=== PATIENT | male | born 1975 | race Caucasian/White ===

== ENCOUNTER 2017-05-23 11:06 | Inpatient (IN) | payer MEDICAID ==
[~2017-05-23] VITALS: Ht 172.7 cm; Wt 66.0 kg
[~2017-05-23 11:06] MED LIST: ALPR.5 PO; ECASA PO; HYDR-3129 PO; WARF2TAB PO
[2017-05-23 11:07] VITALS: BP 147/98; PULSE 92; RESP 22; TEMP 98.2; O2SAT 98
--- NOTE | 2017-05-23 11:38 | PD ---
HPI Chief Complaint: Medical Clearance Time Seen by Provider: 11:14 Travel History International Travel<30 days: No Contact w/Intl Traveler<30days: No Traveled to known affect area: No History of Present Illness HPI 41-year-old male patient presents emergency department with mother for evaluation of depressed, reclusive symptoms. The patient had open-heart surgery last August and subsequently was placed on Cymbalta by his primary care for depression. The mother states the patient had a hard time affording this medication. Patient stopped taking this medication a couple weeks ago and within the last 2 days has started talking to himself, not engaging socially and refusing to leave the house. The patient has no official psychiatric diagnosis but was [place] acted prior and has a prior history of drug and alcohol use. Patient developed endocarditis and has a synthetic mitral valve. Patient denies any fever, chills, malaise, chest pain, shortness breath, abdominal pain , nausea, vomiting, diarrhea. PFSH Past Medical History Arthritis: Yes (HAND) Atrial Fibrillation: Yes Blood Disorders: Yes (BLEEDING WHEN BRUSHING TEETH SCRATCH OF L TIBIAL AREA WITH BLEEDING DRSG ON) Anxiety: Yes Depression: Yes Heart Rhythm Problems: Yes (RAPID HEART RATE) Cancer: No Cardiovascular Problems: Yes (MITRAL VALVE REPLACEMENT) High Cholesterol: No Chemotherapy: No Chest Pain: Yes Congestive Heart Failure: No COPD: No Cerebrovascular Accident: No Diminished Hearing: No Endocrine: No Genitourinary: No Hypertension: Yes Immune Disorder: No Musculoskeletal: Yes Neurologic: Yes Psychiatric: Yes Reproductive: No Respiratory: No (SMOKER) Migraines: No Myocardial Infarction: Yes Radiation Therapy: No Seizures: No Sleep Apnea: No ?: Not Past Surgical History Abdominal Surgery: No AICD: No Arteriovenous Shunt: No Body Medical Devices: WAS TOLD HE HAS ANOTHER LEAKY VALVE Cardiac Surgery: Yes (ST JAM MITRAL VALVE) Ear Surgery: No Endocrine Surgery: No Eye Surgery: No Genitourinary Surgery: No Insulin Pump: No Joint Replacement: No Neurologic Surgery: No Oral Surgery: No Pacemaker: No Thoracic Surgery: No Valve Replacement: Yes (MITRAL VALVE SURGERY ) Other Surgery: Yes Social History Alcohol Use: No (QUIT) Tobacco Use: Yes Substance Use: Yes (MARIJUANA AT TIMES) Allergies-Medications (Allergen,Severity, Reaction): Coded Allergies: haloperidol (Unverified Allergy, Severe, DYSTONIC REACTION, 01/25/17) lorazepam (Unverified Allergy, Severe, SEVERE AGITATION, 01/25/17) promethazine (Unverified Allergy, Severe, SEVERE AGITATION, 01/25/17) zolpidem (Unverified Allergy, Severe, severe agitation, 01/25/17) Reported Meds & Prescriptions Reported Meds & Active Scripts Active Reported Cymbalta DR (Duloxetine HCl) 30 Mg Capdr 30 Mg PO DAILY Atenolol 50 Mg Tab 50 Mg PO BID Coumadin (Warfarin) 2.5 Mg Tab 2.5 Mg PO DAILY Review of Systems Except as stated in HPI: all other systems reviewed are Neg Psychiatric: Positive: Depression, Disorder of Thought Physical Exam Narrative GENERAL: Disheveled unkempt 41-year-old male patient in no acute respiratory distress but refusing to make eye contact or answer questions. SKIN: Focused skin assessment warm/dry. HEAD: Atraumatic. Normocephalic. EYES: Pupils equal and round. No scleral icterus. No injection or drainage. ENT: No nasal bleeding or discharge. Mucous membranes pink and moist. NECK: Trachea midline. No JVD. CARDIOVASCULAR: Regular rate and rhythm. No murmur appreciated. RESPIRATORY: No accessory muscle use. Clear to auscultation. Breath sounds equal bilaterally. GASTROINTESTINAL: Abdomen soft, non-tender, nondistended. Hepatic and splenic margins not palpable. MUSCULOSKELETAL: No obvious deformities. No clubbing. No cyanosis. No edema. NEUROLOGICAL: Awake and alert. No obvious cranial nerve deficits. Motor grossly within normal limits. PSYCHIATRIC: Flat affect, making no effort to make eye contact or answer questions, closed body language with arms crossed; talking and laughing to himself. Data Data Last Documented VS Vital Signs Date Time Temp Pulse Resp B/P (MAP) Pulse Ox O2 Delivery O2 Flow Rate FiO2 05/23/17 13:10 79 18 141/86 (104) 98 05/23/17 11:07 98.2 Orders Orders Complete Blood Count With Diff (05/23/17 11:20) Comprehensive Metabolic Panel (05/23/17 11:20) Urinalysis - C+S If Indicated (05/23/17 11:20) Psych Screen (05/23/17 11:20) Drug Screen, Random Urine (05/23/17 11:20) Potassium Chloride (Kcl) (05/23/17 12:45) Labs Laboratory Tests Test 05/23/17 11:30 05/23/17 14:45 White Blood Count 6.8 TH/MM3 Red Blood Count 3.41 MIL/MM3 Hemoglobin 11.8 GM/DL Hematocrit 34.7 % Mean Corpuscular Volume 101.7 FL Mean Corpuscular Hemoglobin 34.7 PG Mean Corpuscular Hemoglobin Concent 34.1 % Red Cell Distribution Width 15.8 % Platelet Count 173 TH/MM3 Mean Platelet Volume 7.9 FL Neutrophils (%) (Auto) 78.9 % Lymphocytes (%) (Auto) 16.5 % Monocytes (%) (Auto) 4.2 % Eosinophils (%) (Auto) 0.1 % Basophils (%) (Auto) 0.3 % Neutrophils # (Auto) 5.3 TH/MM3 Lymphocytes # (Auto) 1.1 TH/MM3 Monocytes # (Auto) 0.3 TH/MM3 Eosinophils # (Auto) 0.0 TH/MM3 Basophils # (Auto) 0.0 TH/MM3 CBC Comment DIFF FINAL Differential Comment Blood Urea Nitrogen 17 MG/DL Creatinine 0.73 MG/DL Random Glucose 103 MG/DL Total Protein 7.1 GM/DL Albumin 4.4 GM/DL Calcium Level 9.1 MG/DL Alkaline Phosphatase 75 U/L Aspartate Amino Transf (AST/SGOT) 34 U/L Alanine Aminotransferase (ALT/SGPT) 21 U/L Total Bilirubin 0.8 MG/DL Sodium Level 141 MEQ/L Potassium Level 2.9 MEQ/L Chloride Level 105 MEQ/L Carbon Dioxide Level 27.1 MEQ/L Anion Gap 9 MEQ/L Estimat Glomerular Filtration Rate 120 ML/MIN Urine Color YELLOW Urine Turbidity CLEAR Urine pH 6.0 Urine Specific [place] 1.014 Urine Protein 30 mg/dL Urine Glucose (UA) NEG mg/dL Urine Ketones NEG mg/dL Urine Occult Blood MOD Urine Nitrite NEG Urine Bilirubin NEG Urine Urobilinogen 4.0 MG/DL Urine Leukocyte Esterase NEG Urine RBC 23 /hpf Urine WBC 1 /hpf Urine Bacteria OCC /hpf Urine Mucus FEW /lpf Microscopic Urinalysis Comment CULT NOT INDICATED Urine Opiates Screen NEG Urine Barbiturates Screen NEG Urine Amphetamines Screen NEG Urine Benzodiazepines Screen NEG Urine Cocaine Screen NEG Urine Cannabinoids Screen POS MDM Medical Decision Making Medical Screen Exam Complete: Yes Emergency Medical Condition: Yes Differential Diagnosis Depression versus suicidal ideation versus anxiety versus adjustment disorder versus mood disorder versus bipolar disorder versus schizophrenia versus paranoid disorder versus psychosis versus substance abuse versus alcohol abuse versus alcohol induced psychosis versus homicidality addition versus cutting versus personality disorder Narrative Course 41-year-old patient presents to the emergency department voluntary for psychiatric evaluation. Basic blood work was ordered to medically clear the patient. Psych screen ordered and pending once the patient is medically clear. Heart shows hypokalemia at 2.9. KCl 60 mEq by mouth ordered. Drug screen is negative except for cannabis. Patient medically cleared at this time for psych screen. Psych to determine disposition of patient. Diagnosis Primary Impression: Adjustment disorder, unspecified Qualified Codes: F43.25 - Adjustment disorder with mixed disturbance of emotions and conduct Condition: Stable Risa Olvera [facility] May 23, 2017 11:38
[2017-05-23 11:53] LABS: AUTOMATED NEUTROPHIL # 5.3 TH/MM3 (1.8-7.7); BASOPHIL % 0.3 % (0.0-2.0); EOSINOPHIL % 0.1 % (0.0-4.0); HEMATOCRIT 34.7 % (39.0-51.0); HEMO FLAGS DIFF FINAL; LYMPH % 16.5 % (9.0-44.0); LYMPHOCYTE # 1.1 TH/MM3 (1.0-4.8); MEAN CELL VOLUME 101.7 FL (80.0-100.0); MEAN CORPUSCULAR HEMOGLOBIN 34.7 PG (27.0-34.0); MEAN CORPUSCULAR HGB CONC 34.1 % (32.0-36.0); MONO % 4.2 % (0.0-8.0); NEUT % 78.9 % (16.0-70.0); PLATELET COUNT 173 TH/MM3 (150-450); RED BLOOD COUNT 3.41 MIL/MM3 (4.50-5.90); RED CELL DISTRIBUTION WIDTH 15.8 % (11.6-17.2); WHITE BLOOD COUNT 6.8 TH/MM3 (4.0-11.0)
[2017-05-23 12:18] LABS: ALKALINE PHOSPHATASE 75 U/L (45-117); ALT (GPT) 21 U/L (12-78); ANION GAP 9 MEQ/L (5-15); AST (GOT) 34 U/L (15-37); BICARBONATE 27.1 MEQ/L (21.0-32.0); BLOOD UREA NITROGEN 17 MG/DL (7-18); CHLORIDE 105 MEQ/L (98-107); GLOMERULAR FILTRATION RATE 120 ML/MIN (>89); SODIUM (NA) 141 MEQ/L (136-145); TOTAL BILIRUBIN ADULT 0.8 MG/DL (0.2-1.0)
[2017-05-23 12:23] LABS: POTASSIUM 2.9 MEQ/L (3.5-5.1)
[2017-05-23] MEDS ORDERED: POTASSIUM CHLORIDE 20 MEQ CONTROLLED RELEASE TAB PO ONE (12:45)
[2017-05-23 13:10] VITALS: BP 141/86; PULSE 79; RESP 18; O2SAT 98
[2017-05-23] MEDS ORDERED: CYMB30CA PO (13:13)
[2017-05-23] MEDS ORDERED: ATEN50TA PO (13:13)
[2017-05-23] MEDS ORDERED: COUM2.5T PO (13:13)
[2017-05-23 15:53] LABS: BACTERIA, URINE OCC /hpf; BLOOD, URINE MOD (NEG); COMMENT (UR) CULT NOT INDICATED; CULTURE IF INDICATED CULT NOT INDICATED; GLUCOSE,URINE NEG (NEG); KETONE, URINE NEG (NEG); MUCUS URINE FEW /lpf (OCC); NITRITE,URINE NEG (NEG); URINE COLOR YELLOW (YELLW/STRAW)
[2017-05-23] MEDS ORDERED: ACETAMINOPHEN 325 MG TAB PO PRN (17:45)
[2017-05-23] MEDS ORDERED: LORazepam 1 MG TAB PO PRN (17:45)
[2017-05-23] MEDS ORDERED: MAGNESIUM HYDROXIDE SUSP 30 ML CUP PO PRN (17:45)
[2017-05-23] MEDS ORDERED: ALUMINUM/MAGNESIUM/SIMETH 30 ML CUP PO PRN (17:45)
[2017-05-23] MEDS ORDERED: LORazepam 2 MG/ML VIAL IM PRN (17:45)
--- NOTE | 2017-05-23 17:51 | HHI.HP ---
Provisional Diagnosis Admission Date [place]. Brief psychotic disorder GENERAL: SKIN: Warm and dry. HEAD: Normocephalic. EYES: No scleral icterus. No injection or drainage. NECK: Supple, trachea midline. No JVD or lymphadenopathy. CARDIOVASCULAR: Regular rate and rhythm without murmurs, gallops, or rubs. RESPIRATORY: Breath sounds equal bilaterally. No accessory muscle use. GASTROINTESTINAL: Abdomen soft, non-tender, nondistended. MUSCULOSKELETAL: No cyanosis, or edema. BACK: Nontender without obvious deformity. No CVA tenderness. Certification of Person's Competence To Provide Express and Informed Consent I have personally examined Sandro Mcintosh , a person being served at [facility] on, May 23, 2017 17:43. Express and informed consent means consent voluntarily given in writing, by a competent person, after sufficient explanation and disclosure of the subject matter involved to enable the person to make a knowing and willful decision without any element of force, fraud, deceit, duress, or other form of constraint or coercion. This person is 18 years of age or older, is not now known to be incompetent to consent to treatment with a guardian advocate, and does not have a health care surrogate or proxy currently making medical treatment decisions. I have found this person to be one of the following: [X] Competent to provide express and informed consent, as defined above, for voluntary admission to this facility and is competent to provide express and informed consent for treatment. He/she has the consistent capacity to make well reasoned, willful, and knowing decisions concerning his or her medical or mental health treatment. The person fully and consistently understands the purpose of the admission for examination/placement and is fully capable of personally exercising all rights assured [place] Incompetent to provide express and informed consent to voluntary admission, and this is incompetent to provide express and informed consent to treatment. The person must be transferred to involuntary status and a petition for a guardian advocate filed with the Circuit Court. [] Refusing to provide express and informed consent to voluntary admission but is competent to provide express and informed consent for treatment. The person must be discharged or transferred to involuntary status. Form shall be completed within 24 hours of a person's arrival at the receiving facility and filed in the clinical record of each person: 1. Admitted on a voluntary basis 2. Permitted to provide express and informed consent to his/her own treatment 3. Allowed to transfer from involuntary to voluntary status 4. Prior to permitting a person to consent to his or her own treatment after having been previously found incompetent to consent to treatment. History of Present Illness Capacity: Has Capacity HPI 41-year-old male with a several month history of increasing symptoms of depression, status post open heart surgery in August of this year, presenting at this point with marked depression and psychotic features. Patient has awareness that he is not well and voluntarily came to the hospital with his mother. He is and has 3 children. He is unable to work due to his cardiac condition. Over the last several months, he has become increasingly depressed. He was taking Cymbalta but apparently has been off this medicine in the last several weeks. At this point, the patient is claiming to be seeing bugs. He is talking to himself and having what appears to be nonsensical conversations with himself. He is obviously a poor historian. However, he is very cooperative and appears to understand there is something not wrong with his thought process. He is willing to be admitted for evaluation and treatment. His mother feels she and the patient's are unable to care for him at this point. The mother reports the patient smokes marijuana but is uncertain of any other drugs that may have been used with marijuana and does not believe her son has used any other illicit drugs. Patient has apparently gone out of the house only approximately 10 times this year and on each occasion , he has gone with a family member. Review of Systems Psychiatric: COMPLAINS OF: Confusion, Depression Except as stated in HPI: all other systems reviewed are Neg Past Psych History Psychological trauma history No known psychological trauma. Violence risk - others (6 mos) Minimal to moderate Violence risk - self (6 mos) Moderate to high Substance Abuse History Drugs/Alcohol past 12 months History of benzodiazepine abuse. Past Family Social History Coded Allergies: haloperidol (Unverified Allergy, Severe, DYSTONIC REACTION, 01/25/17) lorazepam (Unverified Allergy, Severe, SEVERE AGITATION, 01/25/17) promethazine (Unverified Allergy, Severe, SEVERE AGITATION, 01/25/17) zolpidem (Unverified Allergy, Severe, severe agitation, 01/25/17) Reported Medications Duloxetine (Cyvero ORDOÑEZ) 30 Mg Capdr, 30 MG PO DAILY, #30 CAP 0 Refills 05/23/17 Atenolol (Atenolol) 50 Mg Tab, 50 MG PO BID for Blood Pressure Management, #14 TAB 0 Refills 05/23/17 Warfarin (Coumadin) 2.5 Mg Tab, 2.5 MG PO DAILY for Prevent Blood Clot, #30 TAB 0 Refills 05/23/17 Current Medications Medications (Trade) Dose Ordered Sig/Khushboo Route Start Time Stop Time Status Last Admin (Ativan) 1 mg Q6H PRN PO 05/23/17 17:45 UNV (Ativan Inj) 1 mg Q6H PRN IM 05/23/17 17:45 UNV (Tylenol) 650 mg Q4H PRN PO 05/23/17 17:45 UNV (Milk Of Magnesia Liq) 30 ml DAILY PRN PO 05/23/17 17:45 UNV (Mag-Al Plus Susp Liq) 30 ml Q6H PRN PO 05/23/17 17:45 UNV Family Psych History Positive for depression. Social History Patient has had heart problems for years. 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 He is unemployed but his works. Family is supportive. Drug use as described above. Patient's Strengths (min. 2) Verbal and has access to healthcare. Physical Exam GENERAL: SKIN: Warm and dry. HEAD: Normocephalic. EYES: No scleral icterus. No injection or drainage. NECK: Supple, trachea midline. No JVD or lymphadenopathy. CARDIOVASCULAR: Regular rate and rhythm without murmurs, gallops, or rubs. RESPIRATORY: Breath sounds equal bilaterally. No accessory muscle use. GASTROINTESTINAL: Abdomen soft, non-tender, nondistended. MUSCULOSKELETAL: No cyanosis, or edema. BACK: Nontender without obvious deformity. No CVA tenderness. Vital Signs Vital Signs Date Time Temp Pulse Resp B/P (MAP) Pulse Ox O2 Delivery O2 Flow Rate FiO2 05/23/17 13:10 79 18 141/86 (104) 98 05/23/17 11:07 98.2 Lab Results Test 05/23/17 11:30 05/23/17 14:45 White Blood Count 6.8 TH/MM3 Red Blood Count 3.41 MIL/MM3 Hemoglobin 11.8 GM/DL Hematocrit 34.7 % Mean Corpuscular Volume 101.7 FL Mean Corpuscular Hemoglobin 34.7 PG Mean Corpuscular Hemoglobin Concent 34.1 % Red Cell Distribution Width 15.8 % Platelet Count 173 TH/MM3 Mean Platelet Volume 7.9 FL Neutrophils (%) (Auto) 78.9 % Lymphocytes (%) (Auto) 16.5 % Monocytes (%) (Auto) 4.2 % Eosinophils (%) (Auto) 0.1 % Basophils (%) (Auto) 0.3 % Neutrophils # (Auto) 5.3 TH/MM3 Lymphocytes # (Auto) 1.1 TH/MM3 Monocytes # (Auto) 0.3 TH/MM3 Eosinophils # (Auto) 0.0 TH/MM3 Basophils # (Auto) 0.0 TH/MM3 CBC Comment DIFF FINAL Differential Comment Blood Urea Nitrogen 17 MG/DL Creatinine 0.73 MG/DL Random Glucose 103 MG/DL Total Protein 7.1 GM/DL Albumin 4.4 GM/DL Calcium Level 9.1 MG/DL Alkaline Phosphatase 75 U/L Aspartate Amino Transf (AST/SGOT) 34 U/L Alanine Aminotransferase (ALT/SGPT) 21 U/L Total Bilirubin 0.8 MG/DL Sodium Level 141 MEQ/L Potassium Level 2.9 MEQ/L Chloride Level 105 MEQ/L Carbon Dioxide Level 27.1 MEQ/L Anion Gap 9 MEQ/L Estimat Glomerular Filtration Rate 120 ML/MIN Urine Color YELLOW Urine Turbidity CLEAR Urine pH 6.0 Urine Specific [place] 1.014 Urine Protein 30 mg/dL Urine Glucose (UA) NEG mg/dL Urine Ketones NEG mg/dL Urine Occult Blood MOD Urine Nitrite NEG Urine Bilirubin NEG Urine Urobilinogen 4.0 MG/DL Urine Leukocyte Esterase NEG Urine RBC 23 /hpf Urine WBC 1 /hpf Urine Bacteria OCC /hpf Urine Mucus FEW /lpf Microscopic Urinalysis Comment CULT NOT INDICATED Urine Opiates Screen NEG Urine Barbiturates Screen NEG Urine Amphetamines Screen NEG Urine Benzodiazepines Screen NEG Urine Cocaine Screen NEG Urine Cannabinoids Screen POS Mental Status Examination Appearance: Appropriate Consciousness: Alert Orientation: x4 Motor Activity: Normal gait Speech: Hesitant Language: Adequate Fund of Knowledge: Adequate Attention and Concentration: Easily Distracted Memory: Impaired Mood: Sad Affect: Sad Thought Process & Associations: Disorganized Thought Content: Bizarre thinking, Delusional Hallucination Type: Auditory, Visual Delusion Type: Other Suicidal Ideation: No Suicidal Plan: No Suicidal Intention: No Homicidal Ideation: No Homicidal Plan: No Homicidal Intention: No Insight: Fair Assessment & Plan Problem List: (1) Brief psychotic disorder ICD Codes: F23 - Brief psychotic disorder Assessment & Plan Estimated LOS: days. This physician is unable to determine whether the patient is psychotic as a result of some organic process, is currently experiencing major depression with psychotic illness, butting schizophrenia, etc. In any event, he has a serious heart condition, remains on anticoagulation therapy and is unable to care for himself. He remains experiencing auditory and visual hallucinations with delusional thinking of bugs being in his air space. For these reasons he is being admitted for further evaluation and treatment. This physician has ordered a CBC and comprehensive metabolic panel to determine if any infectious process or metabolic process may be causing or contributing to the patient's psychosis. A hospitalist consult was also obtained to evaluate the patient's cardiac condition and any other medical condition that may be causing or contributing to his psychosis. This physician ordered a thyroid-stimulating hormone level, vitamin B-12 level and vitamin D level, to determine if deficiencies in these areas is causing or contributing to his psychosis. Also ordered is a EKG to determine the patient's cardiac conduction status prior to utilizing psychotropic medicines which might adversely affect his heart. This physician spoke with the patient's nurse regarding his recent behavior. Case management will also be involved to assist with further information gathering and disposition planning. Yordan Castaneda MD May 23, 2017 17:51
[2017-05-23 18:30] VITALS: BP 131/85; PULSE 77; RESP 18; O2SAT 98
--- NOTE | 2017-05-23 19:26 | PD ---
Physical Exam Narrative I, Dr. Ferrari, have reviewed the advance practice practitioner's documentation and am in agreement, met with the patient face to face, made the diagnosis, and the medical decision making was done by me. *My assessment and Findings: Psychotic eisode vs. depression vs. schizophrenia vs. drug induced psychosis 41yo M with history of depression here because he has been talking to himself and has been off cymbalta because he could not afford it. Pt does seem bizarre. Denies any medical complaints. Labs reviewed, no leukocytosis. Hypokalemia at 2.9, replaced orally. Pt takes lasix and said that is normal for him. Utox positive cannabinoids. UA negative for leukocyte. +RBC. Psychiatry evaluated pt and impression is brief psychotic disorder. Asked me to [place] Act which I signed. Data Data Last Documented VS Vital Signs Date Time Temp Pulse Resp B/P (MAP) Pulse Ox O2 Delivery O2 Flow Rate FiO2 05/23/17 13:10 79 18 141/86 (104) 98 05/23/17 11:07 98.2 Orders Orders Complete Blood Count With Diff (05/23/17 11:20) Comprehensive Metabolic Panel (05/23/17 11:20) Urinalysis - C+S If Indicated (05/23/17 11:20) Psych Screen (05/23/17 11:20) Drug Screen, Random Urine (05/23/17 11:20) Potassium Chloride (Kcl) (05/23/17 12:45) Admit Order (Ed Use Only) (05/23/17 17:38) Labs Laboratory Tests Test 05/23/17 11:30 05/23/17 14:45 White Blood Count 6.8 TH/MM3 Red Blood Count 3.41 MIL/MM3 Hemoglobin 11.8 GM/DL Hematocrit 34.7 % Mean Corpuscular Volume 101.7 FL Mean Corpuscular Hemoglobin 34.7 PG Mean Corpuscular Hemoglobin Concent 34.1 % Red Cell Distribution Width 15.8 % Platelet Count 173 TH/MM3 Mean Platelet Volume 7.9 FL Neutrophils (%) (Auto) 78.9 % Lymphocytes (%) (Auto) 16.5 % Monocytes (%) (Auto) 4.2 % Eosinophils (%) (Auto) 0.1 % Basophils (%) (Auto) 0.3 % Neutrophils # (Auto) 5.3 TH/MM3 Lymphocytes # (Auto) 1.1 TH/MM3 Monocytes # (Auto) 0.3 TH/MM3 Eosinophils # (Auto) 0.0 TH/MM3 Basophils # (Auto) 0.0 TH/MM3 CBC Comment DIFF FINAL Differential Comment Blood Urea Nitrogen 17 MG/DL Creatinine 0.73 MG/DL Random Glucose 103 MG/DL Total Protein 7.1 GM/DL Albumin 4.4 GM/DL Calcium Level 9.1 MG/DL Alkaline Phosphatase 75 U/L Aspartate Amino Transf (AST/SGOT) 34 U/L Alanine Aminotransferase (ALT/SGPT) 21 U/L Total Bilirubin 0.8 MG/DL Sodium Level 141 MEQ/L Potassium Level 2.9 MEQ/L Chloride Level 105 MEQ/L Carbon Dioxide Level 27.1 MEQ/L Anion Gap 9 MEQ/L Estimat Glomerular Filtration Rate 120 ML/MIN Urine Color YELLOW Urine Turbidity CLEAR Urine pH 6.0 Urine Specific [place] 1.014 Urine Protein 30 mg/dL Urine Glucose (UA) NEG mg/dL Urine Ketones NEG mg/dL Urine Occult Blood MOD Urine Nitrite NEG Urine Bilirubin NEG Urine Urobilinogen 4.0 MG/DL Urine Leukocyte Esterase NEG Urine RBC 23 /hpf Urine WBC 1 /hpf Urine Bacteria OCC /hpf Urine Mucus FEW /lpf Microscopic Urinalysis Comment CULT NOT INDICATED Urine Opiates Screen NEG Urine Barbiturates Screen NEG Urine Amphetamines Screen NEG Urine Benzodiazepines Screen NEG Urine Cocaine Screen NEG Urine Cannabinoids Screen POS MDM Supervised Visit with ERICA: Yes Diagnosis Primary Impression: Adjustment disorder, unspecified Qualified Codes: F43.25 - Adjustment disorder with mixed disturbance of emotions and conduct Admitting Information Admitting Physician Requests: Admit Condition: Stable Yeni Ferrari DO May 23, 2017 19:26
[2017-05-23 20:00] VITALS: BP 134/82; PULSE 82; RESP 18; TEMP 98.1; O2SAT 98
[2017-05-23] MEDS: ATENOLOL 50 MG TAB PO SCH (21:27)
[2017-05-24] MEDS ORDERED: diphenhydrAMINE HCL 50 MG/ML VIAL IM PRN (02:00)
[2017-05-24] MEDS ORDERED: clonazePAM 1 MG TAB PO ONE ×2 (02:00→16:30)
[2017-05-24] MEDS ORDERED: ZIPRASIDONE MESYLATE 20 MG VIAL IM ONE ×2 (05:03→06:00)
[2017-05-24] MEDS ORDERED: OLANZapine IM 10 MG VIAL IM ONE (06:45)
--- NOTE | 2017-05-24 07:17 | HHI.PYPN ---
Subjective Remarks Patient seen for follow-up, chart reviewed. Discussion she staff reported the patient overnight had required ETO for agitation which she received Geodon 20 and then kill 50 the patient later this morning continued agitated was noted to be in the hallway swinging yelling and then to be redirected back to his room with staff. Patient was redirected back to his room was provided with olanzapine 10 mg IM for agitation patient was noted to be talking to self, unable to engage in conversation, pacing. When attempted to ask reasons he came to the hospital or questions of his previous history patient said that just nodded or shook his head and was unable to remain engaged in interview. As per chart patient initially presented to the ER with his mother for evaluation of depression and having recent days of talking to self and reclusive in the home. As per note patient has history of substance and alcohol use, has endocarditis status post mitral valve replacement. It was also noted by nursing staff that patient had admitted to marijuana and flakka use recently. Patient at this time is unable to participate in interview agitation. Past psychiatric history: Previous diagnosis of depression, unknown if previous psychiatric hospitalizations, unknown if previous suicide attempt or self- injurious behavior, as per chart recently on Cymbalta for depression but was not able to afford it and therefore has not taken it for a couple of weeks as per chart. Substance use history: Patient admitted to marijuana and flakka use. History of other substance use (unspecified) and alcohol use Past medical history: Hypertension, endocarditis status post valve replacement Allergies: Haldol, lorazepam, promethazine, zolpidem Social history: and has 3 children, unemployed Review of Systems ROS Limitations: Combative, Psychotic Mental Status Examination Appearance: Disheveled Consciousness: Alert Orientation: x4 Motor Activity: Normal gait Speech: Incoherent, Other (yelling at times) Language: Other Fund of Knowledge: Adequate, Inadequate Attention and Concentration: Inadequate Memory: Impaired Mood: Angry, Irritable Affect: Labile, Other (responding to internal stimuli) Thought Process & Associations: Disorganized Thought Content: Bizarre thinking, Delusional Hallucination Type: Auditory, Visual Delusion Type: Other Suicidal Ideation: No Suicidal Plan: No Suicidal Intention: No Homicidal Ideation: No Homicidal Plan: No Homicidal Intention: No Insight: Fair Results Labs Labs reviewed. Test 05/23/17 11:30 05/23/17 14:45 White Blood Count 6.8 TH/MM3 Red Blood Count 3.41 MIL/MM3 Hemoglobin 11.8 GM/DL Hematocrit 34.7 % Mean Corpuscular Volume 101.7 FL Mean Corpuscular Hemoglobin 34.7 PG Mean Corpuscular Hemoglobin Concent 34.1 % Red Cell Distribution Width 15.8 % Platelet Count 173 TH/MM3 Mean Platelet Volume 7.9 FL Neutrophils (%) (Auto) 78.9 % Lymphocytes (%) (Auto) 16.5 % Monocytes (%) (Auto) 4.2 % Eosinophils (%) (Auto) 0.1 % Basophils (%) (Auto) 0.3 % Neutrophils # (Auto) 5.3 TH/MM3 Lymphocytes # (Auto) 1.1 TH/MM3 Monocytes # (Auto) 0.3 TH/MM3 Eosinophils # (Auto) 0.0 TH/MM3 Basophils # (Auto) 0.0 TH/MM3 CBC Comment DIFF FINAL Differential Comment Blood Urea Nitrogen 17 MG/DL Creatinine 0.73 MG/DL Random Glucose 103 MG/DL Total Protein 7.1 GM/DL Albumin 4.4 GM/DL Calcium Level 9.1 MG/DL Alkaline Phosphatase 75 U/L Aspartate Amino Transf (AST/SGOT) 34 U/L Alanine Aminotransferase (ALT/SGPT) 21 U/L Total Bilirubin 0.8 MG/DL Sodium Level 141 MEQ/L Potassium Level 2.9 MEQ/L Chloride Level 105 MEQ/L Carbon Dioxide Level 27.1 MEQ/L Anion Gap 9 MEQ/L Estimat Glomerular Filtration Rate 120 ML/MIN Urine Color YELLOW Urine Turbidity CLEAR Urine pH 6.0 Urine Specific [place] 1.014 Urine Protein 30 mg/dL Urine Glucose (UA) NEG mg/dL Urine Ketones NEG mg/dL Urine Occult Blood MOD Urine Nitrite NEG Urine Bilirubin NEG Urine Urobilinogen 4.0 MG/DL Urine Leukocyte Esterase NEG Urine RBC 23 /hpf Urine WBC 1 /hpf Urine Bacteria OCC /hpf Urine Mucus FEW /lpf Microscopic Urinalysis Comment CULT NOT INDICATED Urine Opiates Screen NEG Urine Barbiturates Screen NEG Urine Amphetamines Screen NEG Urine Benzodiazepines Screen NEG Urine Cocaine Screen NEG Urine Cannabinoids Screen POS Vitals/IOs Vital Signs Date Time Temp Pulse Resp B/P (MAP) Pulse Ox O2 Delivery O2 Flow Rate FiO2 05/23/17 20:00 98.1 82 18 134/82 (99) 98 Intake and Output 05/24/17 05/24/17 05/25/17 08:00 16:00 00:00 Intake Total 0 ml Balance 0 ml Assessment & Plan Problem List: (1) Brief psychotic disorder ICD Codes: F23 - Brief psychotic disorder Assessment & Plan Patient is a 41-year-old man, who carries a diagnosis of depression, polysubstance use disorde who was brought in by mother for evaluation of depression and noted to talk to self for the past couple of days which she requires inpatient psychiatry stabilization. Patient required ETO last night due to agitation and again earlier this morning which she received olanzapine 10 mg IM. Patient unable to participate in interview effectively at this time due to agitation. We'll order one-to-one observation for now for safety. Start olanzapine 5 mg by mouth twice a day for psychosis, continue Cymbalta 30 mg by mouth for depression, start clonazepam 0.5 by mouth twice a day. Recommendations as per primary medical team. Patient was noted at a critical lab value of a low potassium but had potassium replacement last evening. Patient has labs pending this morning. We'll order EKG. Collateral information pending. Discharge planning in progress Justification for Cont. Inpt. At risk for further decompensation if at lower level of care Discharge Planning Patient return back to his residence once psychiatrically stable Tunde Ellis MD May 24, 2017 07:17
[2017-05-24] MEDS: DULoxetine HCl DR 30 MG CAP PO SCH (09:00)
[2017-05-24] MEDS ORDERED: OLANZapine 5 MG TAB PO SCH (09:00)
[2017-05-24] MEDS: ATENOLOL 50 MG TAB PO SCH ×2 (09:00→20:44)
--- NOTE | 2017-05-24 09:19 | PD.CONS ---
HPI Service [facility] Consult Requested By Primary Care Physician No Primary Care Physician Diagnoses: History of Present Illness History from review of medical records and nursing staff. Patient himself is quite disheveled, agitated. He is found sleeping in his bed in med psychiatry unit. He is admitted here with severe depression and psychosis. Nursing staff believes that patient may also be using drugs which led to this agitation and psychosis. At the time of my exam, patient basically answered yes to every single review of system. However when asked about whether he was on antibiotics recently, he denies it. He is noted to have significant hypokalemia on admission and was given 60 mg potassium chloride replacement. No repeat labs available yet. Per EMR, patient was hallucinating and seeing bugs. Talking to self. He has extensive cardiac history with history of mitral valve replacement, CHF, pacemaker and defibrillator placement. Review of Systems ROS Limitations: Psychotic, Poor Historian Past Family Social History Allergies: Coded Allergies: haloperidol (Unverified Allergy, Severe, DYSTONIC REACTION, 01/25/17) lorazepam (Unverified Allergy, Severe, SEVERE AGITATION, 01/25/17) promethazine (Unverified Allergy, Severe, SEVERE AGITATION, 01/25/17) zolpidem (Unverified Allergy, Severe, severe agitation, 01/25/17) Past Medical History -per EMR: HOCM Endocarditis 2000 Mitral Valve Replacement 2000 Defibrillator Placement 2013 Severe Anxiety and Depression- Current. History of suicide attempt Insomnia-Current Drainage of Paracardial Effusion 2000 Congestive Heart Failure 2014 Paper Sorter is Mildred (Stan 2008). Charisse placed the pacemaker. Past Surgical History per EMR: Mitral Valve Replacement 2001 Defibrillator Placement 2013 Drainage Paracardial Effusion 2000 Family History per EMR: Mother and Father Healthy 2 siblings 25 and 30 HOCM Social History smokes a pack a day said he drinks more than 4 beers a day would not answer questions regarding drug abuse Physical Exam Vital Signs Vital Signs Date Time Temp Pulse Resp B/P (MAP) Pulse Ox O2 Delivery O2 Flow Rate FiO2 05/23/17 20:00 98.1 82 18 134/82 (99) 98 05/23/17 19:43 05/23/17 18:30 77 18 131/85 (100) 98 05/23/17 13:10 79 18 141/86 (104) 98 05/23/17 11:07 98.2 92 22 147/98 (401) 10 Physical Exam GENERAL: This is a young gentleman, in no apparent distress. Looks disheveled SKIN: No rashes, ecchymoses or lesions. Cool and dry. HEAD: Atraumatic. Normocephalic. No temporal or scalp tenderness. EYES: No scleral icterus. No injection or drainage. ENT: Nose without bleeding, purulent drainage or septal hematoma. Airway patent. NECK: Trachea midline. No JVD. Supple, nontender, no meningeal signs. CARDIOVASCULAR: Regular rate and rhythm without murmurs, gallops, or rubs. RESPIRATORY: Clear to auscultation. Breath sounds equal bilaterally. No wheezes , rales, or rhonchi. GASTROINTESTINAL: Abdomen soft, non-tender, nondistended. No guarding. MUSCULOSKELETAL: Extremities without clubbing, cyanosis, or edema. . No calf tenderness. . NEUROLOGICAL: Awake and alert. Motor and sensory grossly within normal limits. Normal speech. Laboratory Laboratory Tests Test 05/23/17 11:30 05/23/17 14:45 White Blood Count 6.8 Red Blood Count 3.41 Hemoglobin 11.8 Hematocrit 34.7 Mean Corpuscular Volume 101.7 Mean Corpuscular Hemoglobin 34.7 Mean Corpuscular Hemoglobin Concent 34.1 Red Cell Distribution Width 15.8 Platelet Count 173 Mean Platelet Volume 7.9 Neutrophils (%) (Auto) 78.9 Lymphocytes (%) (Auto) 16.5 Monocytes (%) (Auto) 4.2 Eosinophils (%) (Auto) 0.1 Basophils (%) (Auto) 0.3 Neutrophils # (Auto) 5.3 Lymphocytes # (Auto) 1.1 Monocytes # (Auto) 0.3 Eosinophils # (Auto) 0.0 Basophils # (Auto) 0.0 CBC Comment DIFF FINAL Differential Comment Blood Urea Nitrogen 17 Creatinine 0.73 Random Glucose 103 Total Protein 7.1 Albumin 4.4 Calcium Level 9.1 Alkaline Phosphatase 75 Aspartate Amino Transf (AST/SGOT) 34 Alanine Aminotransferase (ALT/SGPT) 21 Total Bilirubin 0.8 Sodium Level 141 Potassium Level 2.9 Chloride Level 105 Carbon Dioxide Level 27.1 Anion Gap 9 Estimat Glomerular Filtration Rate 120 Urine Color YELLOW Urine Turbidity CLEAR Urine pH 6.0 Urine Specific [place] 1.014 Urine Protein 30 Urine Glucose (UA) NEG Urine Ketones NEG Urine Occult Blood MOD Urine Nitrite NEG Urine Bilirubin NEG Urine Urobilinogen 4.0 Urine Leukocyte Esterase NEG Urine RBC 23 Urine WBC 1 Urine Bacteria OCC Urine Mucus FEW Microscopic Urinalysis Comment CULT NOT INDICATED Urine Opiates Screen NEG Urine Barbiturates Screen NEG Urine Amphetamines Screen NEG Urine Benzodiazepines Screen NEG Urine Cocaine Screen NEG Urine Cannabinoids Screen POS Result Diagram: 05/23/17 1130 05/23/17 1130 Assessment and Plan Assessment and Plan Impression: Brief psychotic disorder/severe depression/drug induced. Management per psychiatrist Hypokalemia Chronic anticoagulation on Coumadin Extremely poor historian. Review of systems cannot be obtained as patient and answered yes to every single signs and symptoms. Comorbid conditions: HOCM Endocarditis 2000 Mitral Valve Replacement 2000 Defibrillator Placement 2013 Severe Anxiety and Depression- Current. History of suicide attempt Insomnia-Current Drainage of Paracardial Effusion 2000 Congestive Heart Failure 2013 Plan: Patient's meds have been resumed. check inr check k and mag will need to follow to get better hx if pt has diarrhea, call so that we can send stool samples, decide on further care Will follow up labs. Since patient is taking by mouth medications, it is okay to transfer him to psychiatry unit rather than med psych. Patient is actually wandering around in the med psych unit and is somewhat of a danger to staff. DVT prophylaxis on Coumadin. Discussed Condition With patient, nursing staff Benedict Guzman MD May 24, 2017 09:19
--- NOTE | 2017-05-24 09:56 | PD.PSY.CON ---
Provisional Diagnosis Admission Date May 23, 2017 at 17:40 [place]. Brief psychotic disorder History of Present Illness Service Psychiatry Consult Requested By Dr. Castaneda Reason for Consult Second opinion Primary Care Physician No Primary Care Physician HPI 41-year-old male with a several month history of increasing symptoms of depression, status post open heart surgery in August of this year, presenting at this point with marked depression and psychotic features. Patient has awareness that he is not well and voluntarily came to the hospital with his mother. He is and has 3 children. He is unable to work due to his cardiac condition. Over the last several months, he has become increasingly depressed. He was taking Cymbalta but apparently has been off this medicine in the last several weeks. At this point, the patient is claiming to be seeing bugs. He is talking to himself and having what appears to be nonsensical conversations with himself. He is obviously a poor historian. However, he is very cooperative and appears to understand there is something not wrong with his thought process. He is willing to be admitted for evaluation and treatment. His mother feels she and the patient's are unable to care for him at this point. The mother reports the patient smokes marijuana but is uncertain of any other drugs that may have been used with marijuana and does not believe her son has used any other illicit drugs. Patient has apparently gone out of the house only approximately 10 times this year and on each occasion , he has gone with a family member. The patient 41 year-old with psychiatric history of depression with psychosis, previous heart surgeries, the patient is , has 3 children's, unemployed, admitted due to brief psychosis. Consulted for second opinion. Chart review, case discussed Dr. Ellis and the nurse in charge Marilynn. On my evaluation the patient is found laying in his bed, staring to the roof, very disorganized, internally preoccupied, with a non sensical speech, multiple illogical statements. She doesn't know the reason his in the hospital. He does mention that he was using marijuana and K2. As per staff member the patient has been agitated, verbally hostile, even aggressive this morning needing ETOs. Review of Systems Psychiatric: COMPLAINS OF: Agitation, Delusions Except as stated in HPI: all other systems reviewed are Neg Past Family Social History Coded Allergies: haloperidol (Unverified Allergy, Severe, DYSTONIC REACTION, 01/25/17) lorazepam (Unverified Allergy, Severe, SEVERE AGITATION, 01/25/17) promethazine (Unverified Allergy, Severe, SEVERE AGITATION, 01/25/17) zolpidem (Unverified Allergy, Severe, severe agitation, 01/25/17) Reported Medications Duloxetine DR (Cymbalta DR) 30 Mg Capdr, 30 MG PO DAILY, #30 CAP 0 Refills 05/23/17 Atenolol (Atenolol) 50 Mg Tab, 50 MG PO BID for Blood Pressure Management, #14 TAB 0 Refills 05/23/17 Warfarin (Coumadin) 2.5 Mg Tab, 2.5 MG PO DAILY for Prevent Blood Clot, #30 TAB 0 Refills 05/23/17 Current Medications Medications (Trade) Dose Ordered Sig/[place] Route Start Time Stop Time Status Last Admin (Tylenol) 650 mg Q4H PRN PO 05/23/17 17:45 (Milk Of Magnesia Liq) 30 ml DAILY PRN PO 05/23/17 17:45 (Mag-Al Plus Susp Liq) 30 ml Q6H PRN PO 05/23/17 17:45 (Tenormin) 50 mg BID PO 05/23/17 21:00 05/23/17 21:27 (Cymbalta Dr) 30 mg DAILY PO 05/24/17 09:00 (Coumadin) 2.5 mg DAILY PO 05/23/17 17:45 UNV (Abilify) 5 mg BID PO 05/24/17 22:00 (Vitamin B1) 100 mg DAILY PO 05/25/17 09:00 UNV Patient's Strengths (min. 2) Verbal and has access to healthcare. Physical Exam Vital Signs Vital Signs Date Time Temp Pulse Resp B/P (MAP) Pulse Ox O2 Delivery O2 Flow Rate FiO2 05/23/17 20:00 98.1 82 18 134/82 (99) 98 I/O 05/24/17 05/24/17 05/25/17 08:00 16:00 00:00 Intake Total 0 ml Balance 0 ml Lab Results Test 05/23/17 11:30 05/23/17 14:45 White Blood Count 6.8 TH/MM3 Red Blood Count 3.41 MIL/MM3 Hemoglobin 11.8 GM/DL Hematocrit 34.7 % Mean Corpuscular Volume 101.7 FL Mean Corpuscular Hemoglobin 34.7 PG Mean Corpuscular Hemoglobin Concent 34.1 % Red Cell Distribution Width 15.8 % Platelet Count 173 TH/MM3 Mean Platelet Volume 7.9 FL Neutrophils (%) (Auto) 78.9 % Lymphocytes (%) (Auto) 16.5 % Monocytes (%) (Auto) 4.2 % Eosinophils (%) (Auto) 0.1 % Basophils (%) (Auto) 0.3 % Neutrophils # (Auto) 5.3 TH/MM3 Lymphocytes # (Auto) 1.1 TH/MM3 Monocytes # (Auto) 0.3 TH/MM3 Eosinophils # (Auto) 0.0 TH/MM3 Basophils # (Auto) 0.0 TH/MM3 CBC Comment DIFF FINAL Differential Comment Blood Urea Nitrogen 17 MG/DL Creatinine 0.73 MG/DL Random Glucose 103 MG/DL Total Protein 7.1 GM/DL Albumin 4.4 GM/DL Calcium Level 9.1 MG/DL Alkaline Phosphatase 75 U/L Aspartate Amino Transf (AST/SGOT) 34 U/L Alanine Aminotransferase (ALT/SGPT) 21 U/L Total Bilirubin 0.8 MG/DL Sodium Level 141 MEQ/L Potassium Level 2.9 MEQ/L Chloride Level 105 MEQ/L Carbon Dioxide Level 27.1 MEQ/L Anion Gap 9 MEQ/L Estimat Glomerular Filtration Rate 120 ML/MIN Urine Color YELLOW Urine Turbidity CLEAR Urine pH 6.0 Urine Specific [place] 1.014 Urine Protein 30 mg/dL Urine Glucose (UA) NEG mg/dL Urine Ketones NEG mg/dL Urine Occult Blood MOD Urine Nitrite NEG Urine Bilirubin NEG Urine Urobilinogen 4.0 MG/DL Urine Leukocyte Esterase NEG Urine RBC 23 /hpf Urine WBC 1 /hpf Urine Bacteria OCC /hpf Urine Mucus FEW /lpf Microscopic Urinalysis Comment CULT NOT INDICATED Urine Opiates Screen NEG Urine Barbiturates Screen NEG Urine Amphetamines Screen NEG Urine Benzodiazepines Screen NEG Urine Cocaine Screen NEG Urine Cannabinoids Screen POS Mental Status Examination Appearance: Disheveled Consciousness: Alert Orientation: x4 Motor Activity: Normal gait Speech: Incoherent, Other (yelling at times) Language: Other Fund of Knowledge: Adequate, Inadequate Attention and Concentration: Inadequate Memory: Impaired Mood: Angry, Irritable Affect: Labile, Other (responding to internal stimuli) Thought Process & Associations: Disorganized Thought Content: Bizarre thinking, Delusional Hallucination Type: Auditory, Visual Delusion Type: Other Suicidal Ideation: No Suicidal Plan: No Suicidal Intention: No Homicidal Ideation: No Homicidal Plan: No Homicidal Intention: No Insight: Fair Assessment & Plan Problem List: (1) Brief psychotic disorder ICD Codes: F23 - Brief psychotic disorder Assessment & Plan: I have seen and examined this patient, reviewed the documentation, discussed the case with Dr. Ellis and nurse in charge, Lula corcoarn with Dr. Castaneda's assessment and plan. Consult appreciated. Assessment & Plan Estimated LOS: Alexander Holcomb MD May 24, 2017 09:56
[2017-05-24 10:13] LABS: AUTOMATED NEUTROPHIL # 6.8 TH/MM3 (1.8-7.7); BASOPHIL % 0.5 % (0.0-2.0); EOSINOPHIL % 0.1 % (0.0-4.0); HEMATOCRIT 38.5 % (39.0-51.0); HEMO FLAGS DIFF FINAL; LYMPH % 19.2 % (9.0-44.0); LYMPHOCYTE # 1.8 TH/MM3 (1.0-4.8); MEAN CELL VOLUME 102.8 FL (80.0-100.0); MEAN CORPUSCULAR HEMOGLOBIN 34.9 PG (27.0-34.0); MEAN CORPUSCULAR HGB CONC 33.9 % (32.0-36.0); MONO % 6.2 % (0.0-8.0); PLATELET COUNT 171 TH/MM3 (150-450); RED BLOOD COUNT 3.74 MIL/MM3 (4.50-5.90); RED CELL DISTRIBUTION WIDTH 15.6 % (11.6-17.2); WHITE BLOOD COUNT 9.2 TH/MM3 (4.0-11.0)
[2017-05-24 10:20] LABS: INTERNATIONAL NORMALIZED RATIO 1.8 RATIO; PROTHROMBIN TIME - PATIENT 18.1 SEC (9.8-11.6)
[2017-05-24 10:42] LABS: ANION GAP 10 MEQ/L (5-15); AST (GOT) 35 U/L (15-37); BICARBONATE 26.2 MEQ/L (21.0-32.0); BLOOD UREA NITROGEN 19 MG/DL (7-18); CHLORIDE 104 MEQ/L (98-107); GLOMERULAR FILTRATION RATE 118 ML/MIN (>89); MAGNESIUM 2.1 MG/DL (1.5-2.5); SODIUM (NA) 140 MEQ/L (136-145)
[2017-05-24 10:44] LABS: ALT (GPT) 24 U/L (12-78)
[2017-05-24 11:09] LABS: ALKALINE PHOSPHATASE 80 U/L (45-117); LDL CHOLESTEROL 124 MG/DL (0-99); TOTAL BILIRUBIN ADULT 1.3 MG/DL (0.2-1.0)
[2017-05-24 12:29] LABS: HEMOGLOBIN A1a 0.7 %; HEMOGLOBIN A1b 0.6 %; HEMOGLOBIN Ao 86.7 %; HEMOGLOBIN F 0.7 %; HEMOGLOBIN LA1C 2.1 %; HEMOGLOBIN P3 3.7 %
[2017-05-24] MEDS ORDERED: POTASSIUM CHLORIDE 20 MEQ CONTROLLED RELEASE TAB PO ONE (13:45)
[2017-05-24] MEDS ORDERED: OLANZapine IM 10 MG VIAL IM STA (15:09)
[2017-05-24] MEDS: WARFARIN SOD 2.5 MG TAB PO SCH (16:00)
[2017-05-24 17:28] VITALS: BP 108/71; PULSE 76; RESP 18; TEMP 98.3
--- NOTE | 2017-05-24 19:20 | EKG ---
Date Performed: 05/24/2017 Time Performed: 07:43:50 PTAGE: 41 years EKG: Sinus rhythm LEFT ATRIAL ENLARGEMENT Left bundle branch block. QRS duration has increased when compared to previo us tracing. ABNORMAL ECG PREVIOUS TRACING : 04/09/2014 04.05 DOCTOR: Stas Ogden Interpretating Date/Time 05/24/2017 19:19:42
[2017-05-24] MEDS: clonazePAM 1 MG TAB PO SCH (20:44)
[2017-05-24] MEDS: ARIPiprazole 5 MG TAB PO SCH (21:12)
[2017-05-25 05:47] VITALS: BP 118/69; PULSE 75; RESP 16; TEMP 97.2; O2SAT 98
[2017-05-25] MEDS: clonazePAM 1 MG TAB PO SCH ×2 (08:44→20:35)
[2017-05-25] MEDS: ARIPiprazole 5 MG TAB PO SCH ×2 (08:44→20:34)
[2017-05-25] MEDS: ATENOLOL 50 MG TAB PO SCH ×2 (08:44→20:35)
[2017-05-25] MEDS: THIAMINE HCL 100 MG TAB PO SCH (08:44)
[2017-05-25] MEDS: DULoxetine HCl DR 30 MG CAP PO SCH (08:44)
[2017-05-25] MEDS ORDERED: ERGOCALCIFEROL (VIT D2) 50,000 UNIT CAP PO ONE (11:45)
--- NOTE | 2017-05-25 15:58 | EKG ---
Date Performed: 05/24/2017 Time Performed: 13:46:57 PTAGE: 41 years EKG: Sinus rhythm POSSIBLE RIGHT ATRIAL ENLARGEMENT LEFT ATRIAL ENLARGEMENT LEFT BUNDLE BRANCH BLOCK ABNORMAL ECG INTE RPRETATION BASED ON A DEFAULT AGE OF 42 YEARS PREVIOUS TRACING : 05/24/2017 07.43 DOCTOR: Hola Ruff Interpretating Date/Time 05/25/2017 15:56:11
[2017-05-25] MEDS: WARFARIN SOD 2.5 MG TAB PO SCH (16:00)
--- NOTE | 2017-05-25 16:56 | HHI.PYPN ---
Subjective Remarks Patient seen for follow-up, chart review. Discussion she staff reported the patient was stating feeling better, have slept better and reported to nursing that he would not been sleeping and days prior due to recent stressors. He was also passed on to report that patient had urinated in the hallway last evening had rolled in it. Patient was found in the hallway on the phone but was able to interact with interview of underwriter mortgage loan and nurse today. Patient stated they've been feeling "good" states that he slept well last evening mentioning that he appears he had "6-7 hours straight with no sleep". Patient states that his mood is "happy" and states that during his initial presentation he was "very confused". Patient states that he recently had been using marijuana only and denied having used K2 despite him having expresses initially. Patient also denies having used [place] recently although he also endorsed this initially. He states that he had tried other drugs in the past and states that mostly he was "pain pills when I can get them". Patient states he has outpatient follow- up with his tile edger Dr. Newell, Dr. Mason his primary care doctor in [place] which she last saw 6 weeks ago. Patient reports that he had seen a psychiatrist but 5 years ago and had 1 prior psychiatric authorization here to [place] about 10 years ago but denies any suicide attempt or self-injurious behavior. Patient states that he is able to think clearer now and plans on having family visit with him today. Review of Systems Except as stated in HPI: all other systems reviewed are Neg Mental Status Examination Appearance: Disheveled Consciousness: Alert Orientation: x4 Motor Activity: Normal gait Speech: Incoherent, Other (yelling at times) Language: Other Fund of Knowledge: Adequate, Inadequate Attention and Concentration: Inadequate Memory: Impaired Mood: Appropriate Affect: Other (restricted) Thought Process & Associations: Linear Thought Content: Appropriate Hallucination Type: Auditory (denies at this time), Visual (denies at this time ) Delusion Type: Other Suicidal Ideation: No Suicidal Plan: No Suicidal Intention: No Homicidal Ideation: No Homicidal Plan: No Homicidal Intention: No Insight: Fair Judgment: Impulsive Results Vitals/IOs Vital Signs Date Time Temp Pulse Resp B/P (MAP) Pulse Ox O2 Delivery O2 Flow Rate FiO2 05/25/17 05:47 97.2 75 16 118/69 (47) 47 Assessment & Plan Problem List: (1) Brief psychotic disorder ICD Codes: F23 - Brief psychotic disorder Assessment & Plan Patient appears to have improvement in orientation as well as less disorganized with interview today. Patient is able to maintain conversation with underwriter mortgage loan. Patient denies any recent substance use aside from marijuana although patient had endorsed initially having used K2 and flakka. Due to the patient's recent denial of recent substance use although unreliable, will order see head CT to rule out organic cause of his recent psychosis. Continue current treatment for now as patient appears to be improving. Collateral pending from family. Discharge planning in progress Justification for Cont. Inpt. At risk for further decompensation if at lower level of care Discharge Planning Patient to be discharged back to family once psychiatrically stable. Tunde Ellis MD May 25, 2017 16:56
[2017-05-25 17:07] VITALS: BP 116/64; PULSE 71; RESP 18; TEMP 97.9; O2SAT 98
--- NOTE | 2017-05-25 18:26 | HHI.PR ---
Subjective Remarks Follow up on patient with mitral valve replacement, hypokalemia. Patient seen and examined. Patient denies any chest pain or dyspnea. Patient is complaining of left shoulder pain and difficulty with range of motion. He denies any injury. He denies any fever or chills. Denies any nausea, vomiting or abdominal pain. Objective Vitals Vital Signs Date Time Temp Pulse Resp B/P (MAP) Pulse Ox O2 Delivery O2 Flow Rate FiO2 05/25/17 17:07 97.9 71 18 116/64 (81) 98 05/25/17 05:47 97.2 75 16 118/69 (85) 98 I/O 05/24/17 05/24/17 05/24/17 05/25/17 05/25/17 05/25/17 07:00 15:00 23:00 07:00 15:00 23:00 Intake Total 0 ml Balance 0 ml Intake Oral 0 ml # Voids 0 Result Diagram: 05/24/17 0905/24/17 0911 Objective Remarks GENERAL: This is a young gentleman, in no apparent distress. Looks disheveled. Awake and alert. Slightly manic. SKIN: Warm and dry. Well healed midline surgical scar over sternum. HEAD: Atraumatic. Normocephalic. EYES: EOMI. No scleral icterus. No injection or drainage. ENT: Nose without bleeding, purulent drainage. Airway patent. MMM. NECK: Trachea midline. CARDIOVASCULAR: Regular rate and rhythm. (+)murmur present. RESPIRATORY: Clear to auscultation. Breath sounds equal bilaterally. No wheezes , rales, or rhonchi. GASTROINTESTINAL: Abdomen soft, non-tender, nondistended. No guarding. MUSCULOSKELETAL: Extremities without clubbing, cyanosis, or edema. . No calf tenderness. Tenderness to palpation over left shoulder with decreased range of motion. NEUROLOGICAL: Awake and alert. Motor and sensory grossly within normal limits. Normal speech. Medications and IVs Current Medications Medications (Trade) Dose Ordered Sig/Khushboo Route Start Time Stop Time Status Last Admin (Tylenol) 650 mg Q4H PRN PO 05/23/17 17:45 (Milk Of Magnesia Liq) 30 ml DAILY PRN PO 05/23/17 17:45 (Mag-Al Plus Susp Liq) 30 ml Q6H PRN PO 05/23/17 17:45 (Tenormin) 50 mg BID PO 05/23/17 21:00 05/25/17 08:44 (Cymbalta Dr) 30 mg DAILY PO 05/24/17 09:00 05/25/17 08:44 (Coumadin) 2.5 mg DAILY@1600 PO 05/24/17 16:00 05/25/17 16:00 (Abilify) 5 mg BID PO 05/24/17 22:00 05/25/17 08:44 (Vitamin B1) 100 mg DAILY PO 05/25/17 09:00 05/25/17 08:44 (KlonoPIN) 1 mg BID PO 05/24/17 21:00 05/25/17 08:44 (Vitamin D3) 2,000 units DAILY PO 05/26/17 09:00 Pharmacy Profile Note 0 ml @ 0 mls/hr UNSCH OTHER 05/25/17 08:30 A/P Assessment and Plan Psychosis - Management per psychiatric team Mitral Valve Replacement 2000 Defibrillator Placement 2013 Chronic anticoagulation with Coumadin - Continue on Coumadin. INR subtherapeutic. Repeat INR today. Consult pharmacy to dose. - continue on Atenolol 50mg BID Hypokalemia - repletion given - repeat K level, labs ordered for today - check mag level Left shoulder pain - xray left shoulder - OT eval/tx Vitamin D deficiency - vitamin D level 8.8 - patient started on po vitamin D repletion - will need to follow up with PCP to have level rechecked DVT prophylaxis - Patient is ambulatory Meredith Mckee May 25, 2017 18:26
--- NOTE | 2017-05-25 19:51 | RADRPT ---
EXAM DATE/TIME: 05/25/2017 19:39 [facility] COMPARISON: No previous studies available for comparison. INDICATIONS : Altered mental status. RADIATION DOSE: 38.96 CTDIvol (mGy) MEDICAL HISTORY : Cardiovascular disease. Hypertension. SURGICAL HISTORY : None. ENCOUNTER: Initial ACUITY: 1 day PAIN SCALE: 0/10 LOCATION: cranial TECHNIQUE: Multiple contiguous axial images were obtained of the head. Using automated exposure control and adj ustment of the mA and/or kV according to patient size, radiation dose was kept as low as reasonably a chievable to obtain optimal diagnostic quality images. DICOM format image data is available electro nically for review and comparison. FINDINGS: CEREBRUM: The ventricles are normal for age. No evidence of midline shift, mass lesion, hemorrhage or acute in farction. No extra-axial fluid collections are seen. POSTERIOR FOSSA: The cerebellum and brainstem are intact. The 4th ventricle is midline. The cerebellopontine angle i s unremarkable. EXTRACRANIAL: The visualized portion of the orbits is intact. SKULL: The calvaria is intact. No evidence of skull fracture. CONCLUSION: 1. No acute intracranial abnormalities. Joel Garcia MD on May 25, 2017 at 19:47 Board Certified Radiologist. This report was verified electronically.
[2017-05-25] MEDS: REMOVE OLD NICODERM (NICOTINE) PATCH T-DERMAL SCH (20:00)
[2017-05-25] MEDS: NICOTINE 21 MG/24 HR PATCH T-DERMAL SCH (20:00)
--- NOTE | 2017-05-25 20:04 | RADRPT ---
EXAM DATE/TIME: 05/25/2017 19:42 [facility] COMPARISON: No previous studies available for comparison. INDICATIONS : Left shoulder pain. No known injury. MEDICAL HISTORY : Hypertension. Cardiovascular disease. Myocardial infarction. Atrial fibrillation. SURGICAL HISTORY : Pacemaker. Mitral valve replacement. ENCOUNTER: Initial ACUITY: >1 year PAIN SCORE: 5/10 LOCATION: Left anterior shoulder. FINDINGS: Two view examination of the left shoulder demonstrates no evidence of fracture or dislocation. The g lenohumeral and acromioclavicular joints are maintained. Bony mineralization is normal. CONCLUSION: 1. No acute findings. Joel Garcia MD on May 25, 2017 at 19:59 Board Certified Radiologist. This report was verified electronically.
[2017-05-26 05:59] VITALS: BP 123/72; PULSE 70; RESP 16; TEMP 97.3; O2SAT 98
[2017-05-26 08:08] LABS: AUTOMATED NEUTROPHIL # 4.3 TH/MM3 (1.8-7.7); BASOPHIL # 0.1 TH/MM3 (0-0.2); BASOPHIL % 0.8 % (0.0-2.0); EOSINOPHIL # 0.2 TH/MM3 (0-0.4); EOSINOPHIL % 2.4 % (0.0-4.0); HEMATOCRIT 37.5 % (39.0-51.0); HEMO FLAGS DIFF FINAL; LYMPHOCYTE # 2.3 TH/MM3 (1.0-4.8); MEAN CELL VOLUME 102.5 FL (80.0-100.0); MEAN CORPUSCULAR HEMOGLOBIN 34.6 PG (27.0-34.0); MEAN CORPUSCULAR HGB CONC 33.8 % (32.0-36.0); MONO % 6.6 % (0.0-8.0); NEUT % 58.2 % (16.0-70.0); PLATELET COUNT 169 TH/MM3 (150-450); RED BLOOD COUNT 3.66 MIL/MM3 (4.50-5.90); RED CELL DISTRIBUTION WIDTH 15.2 % (11.6-17.2); WHITE BLOOD COUNT 7.3 TH/MM3 (4.0-11.0)
[2017-05-26 08:12] LABS: INTERNATIONAL NORMALIZED RATIO 1.7 RATIO; PROTHROMBIN TIME - PATIENT 17.3 SEC (9.8-11.6)
[2017-05-26 08:36] LABS: BICARBONATE 24.9 MEQ/L (21.0-32.0); POTASSIUM 3.2 MEQ/L (3.5-5.1)
[2017-05-26] MEDS: clonazePAM 1 MG TAB PO SCH ×2 (09:00→21:14)
[2017-05-26] MEDS: ARIPiprazole 5 MG TAB PO SCH ×2 (09:00→21:14)
[2017-05-26] MEDS: CHOLECALCIFEROL (VIT D3) 1000 UNIT TAB PO SCH (09:00)
[2017-05-26] MEDS: ATENOLOL 50 MG TAB PO SCH ×2 (09:00→21:14)
[2017-05-26] MEDS: NICOTINE 21 MG/24 HR PATCH T-DERMAL SCH (09:00)
[2017-05-26] MEDS: DULoxetine HCl DR 30 MG CAP PO SCH (09:00)
[2017-05-26] MEDS: THIAMINE HCL 100 MG TAB PO SCH (09:00)
[2017-05-26] MEDS: REMOVE OLD NICODERM (NICOTINE) PATCH T-DERMAL SCH (09:00)
[2017-05-26] MEDS ORDERED: POTASSIUM CHLORIDE 10 MEQ CONTROLLED RELEASE TAB PO ONE (11:45)
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
[2017-05-26 11:54] LABS: RETIC % 1.1 % (0.4-3.0); REVIEW FLAG FINAL
[2017-05-26] MEDS ORDERED: WARFARIN SOD 2.5 MG TAB PO ONE (13:00)
[2017-05-26] MEDS: ENOXAPARIN SODIUM 60 MG/0.6 ML SYRINGE SQ SCH (13:00)
--- NOTE | 2017-05-26 14:07 | EKG ---
Date Performed: 05/26/2017 Time Performed: 11:10:19 PTAGE: 41 years EKG: Sinus rhythm RIGHT ATRIAL ENLARGEMENT BORDERLINE RIGHT AXIS DEVIATION INTRAVENTRICULAR CONDUCTION DELAY ABNORMAL ECG Compared to prior tracing no significant change PREVIOUS TRACING : 05/24/2017 13.46 DOCTOR: Grace Engle Interpretating Date/Time 05/26/2017 14:05:07
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
[2017-05-26] MEDS: WARFARIN SOD 2.5 MG TAB PO SCH (15:54)
[2017-05-26 20:28] VITALS: BP 107/55; PULSE 63; RESP 17; TEMP 97.2; O2SAT 99
[2017-05-27] MEDS ORDERED: diphenhydrAMINE HCL 50 MG CAP PO PRN (01:15)
[2017-05-27 04:00] VITALS: BP 112/68; PULSE 73; RESP 18; TEMP 97.7; O2SAT 99
[2017-05-27 07:15] LABS: INTERNATIONAL NORMALIZED RATIO 1.6 RATIO
[2017-05-27 08:05] LABS: BICARBONATE 26.9 MEQ/L (21.0-32.0); POTASSIUM 3.9 MEQ/L (3.5-5.1)
[2017-05-27] MEDS ORDERED: WARFARIN SOD 5 MG TAB PO ONE (08:30)
[2017-05-27] MEDS: REMOVE OLD NICODERM (NICOTINE) PATCH T-DERMAL SCH (09:00)
[2017-05-27] MEDS: ATENOLOL 50 MG TAB PO SCH (09:19)
[2017-05-27] MEDS: ARIPiprazole 5 MG TAB PO SCH (09:19)
[2017-05-27] MEDS: CHOLECALCIFEROL (VIT D3) 1000 UNIT TAB PO SCH (09:19)
[2017-05-27] MEDS: DULoxetine HCl DR 30 MG CAP PO SCH (09:19)
[2017-05-27] MEDS: clonazePAM 1 MG TAB PO SCH (09:20)
[2017-05-27] MEDS: THIAMINE HCL 100 MG TAB PO SCH (09:20)
[2017-05-27] MEDS: NICOTINE 21 MG/24 HR PATCH T-DERMAL SCH (09:26)
--- NOTE | 2017-05-27 09:52 | HHI.PR ---
Subjective Remarks Follow up on patient with CHF, mitral valve replacement, hypokalemia. Patient seen and examined. Patient complaining of increased anxiety. Requesting an increase in his Klonopin. Will defer to primary team. Still with some left shoulder pain but "not too bad". Denies any palpitations, dizziness, lightheadedness, chest pain or shortness of breath. Objective Vitals Vital Signs Date Time Temp Pulse Resp B/P (MAP) Pulse Ox O2 Delivery O2 Flow Rate FiO2 05/27/17 04:00 97.7 73 18 112/68 (83) 99 05/26/17 20:28 97.2 63 17 107/55 (72) 99 05/26/17 16:49 Result Diagram: 05/26/17 0652 05/27/17 0650 Imaging Last Impressions Shoulder X-Ray 05/25/17 0000 Signed Impressions: Service Date/Time: Thursday, May 25, 2017 19:42 - CONCLUSION: 1. No acute findings. Joel Garcia MD Head CT 05/25/17 0000 Signed Impressions: Service Date/Time: Thursday, May 25, 2017 19:39 - CONCLUSION: 1. No acute intracranial abnormalities. Joel Garcia MD Objective Remarks GENERAL: This well developed, well nourished young gentleman, in no apparent distress. Awake and alert. Sitting on side of hospital bed. SKIN: Warm and dry. Well healed midline surgical scar over sternum. HEAD: Atraumatic. Normocephalic. EYES: EOMI. No scleral icterus. No injection or drainage. ENT: Nose without bleeding, purulent drainage. Airway patent. MMM. NECK: Trachea midline. CARDIOVASCULAR: Regular rate and rhythm. (+)murmur present. RESPIRATORY: Clear to auscultation. Breath sounds equal bilaterally. No wheezes , rales, or rhonchi. GASTROINTESTINAL: Abdomen soft, non-tender, nondistended. No guarding. MUSCULOSKELETAL: Extremities without clubbing, cyanosis, or edema. . No calf tenderness. Tenderness to palpation over left shoulder with decreased range of motion. NEUROLOGICAL: Awake and alert. Motor and sensory grossly within normal limits. Normal speech. PSYCHIATRIC: More calm today, less agitated. Medications and IVs Current Medications Medications (Trade) Dose Ordered Sig/Khushboo Route Start Time Stop Time Status Last Admin (Tylenol) 650 mg Q4H PRN PO 05/23/17 17:45 (Milk Of Magnesia Liq) 30 ml DAILY PRN PO 05/23/17 17:45 (Mag-Al Plus Susp Liq) 30 ml Q6H PRN PO 05/23/17 17:45 (Tenormin) 50 mg BID PO 05/23/17 21:00 05/27/17 09:19 (Cymbalta Dr) 30 mg DAILY PO 05/24/17 09:00 05/27/17 09:19 (Coumadin) 2.5 mg DAILY@1600 PO 05/24/17 16:00 05/26/17 15:54 (Abilify) 5 mg BID PO 05/24/17 22:00 05/27/17 09:19 (Vitamin B1) 100 mg DAILY PO 05/25/17 09:00 05/27/17 09:20 (KlonoPIN) 1 mg BID PO 05/24/17 21:00 05/27/17 09:20 (Vitamin D3) 2,000 units DAILY PO 05/26/17 09:00 05/27/17 09:19 Pharmacy Profile Note 0 ml @ 0 mls/hr UNSCH OTHER 05/25/17 08:30 (Habitrol 21 Mg Patch.24 Hr) 1 patch DAILY T-DERMAL 05/25/17 20:00 05/27/17 09:26 Miscellaneous Information 1 DAILY T-DERMAL 05/25/17 20:00 05/27/17 09:00 (Lovenox Inj) 60 mg Q24H SQ 05/26/17 13:00 05/26/17 13:00 (Benadryl) 50 mg HS PRN PO 05/27/17 01:15 05/27/17 01:14 A/P Assessment and Plan Psychosis - Management per psychiatric team Hypertrophic cardiomyopathy History of endocarditis with mitral valve prolapse and [facility] Mitral Valve Replacement 2000 Defibrillator Placement 2013 Chronic anticoagulation with Coumadin - Continue on Coumadin. INR subtherapeutic. Repeat INR 1.6 today. Give extra 5mg dose of Coumadin today. Coumadin diet. Continue on Lovenox bridge. Pharmacy to dose. Repeat INR in am. If patient is discharged, recommend [facility] to continue Lovenox bridging and/or give patient instruction on self administration of Lovenox if patient felt to have capacity. Patient will need to have INR checked daily with PCP until therapeutic and can then discontinue Lovenox injections for bridging. 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 Check MMA/pending - folate level greater than 20, retic count 1.1, peripheral smear shows mild macrocytic anemia - patient refusing hepatitis panel and HIV testing DVT prophylaxis - Patient is ambulatory Discussed with patient, nursing staff and Meredith Torres May 27, 2017 09:52
[2017-05-27] MEDS ORDERED: ATEN50TA PO (10:16)
[2017-05-27] MEDS ORDERED: ARIP1TAB11 PO (10:16)
[2017-05-27] MEDS ORDERED: CYMB30CA PO (10:16)
[2017-05-27] MEDS ORDERED: COUM2.5T PO (10:16)
--- NOTE | 2017-05-27 10:22 | HHI.DS ---
Psychiatry Discharge Summary Inpatient Psychiatric care?: Yes Advance Directive: No Reason Not Provided: Due to Patient Condition Mental Health AdvanceDirective: Yes Health Care Proxy: Yes Admission Admission Date May 23, 2017 at 17:40 Admission Diagnosis: (1) Brief psychotic disorder ICD Code: F23 - Brief psychotic disorder Brief History 41-year-old male with a several month history of increasing symptoms of depression, status post open heart surgery in August of this year, presenting at this point with marked depression and psychotic features. Patient has awareness that he is not well and voluntarily came to the hospital with his mother. He is and has 3 children. He is unable to work due to his cardiac condition. Over the last several months, he has become increasingly depressed. He was taking Cymbalta but apparently has been off this medicine in the last several weeks. At this point, the patient is claiming to be seeing bugs. He is talking to himself and having what appears to be nonsensical conversations with himself. He is obviously a poor historian. However, he is very cooperative and appears to understand there is something not wrong with his thought process. He is willing to be admitted for evaluation and treatment. His mother feels she and the patient's are unable to care for him at this point. The mother reports the patient smokes marijuana but is uncertain of any other drugs that may have been used with marijuana and does not believe her son has used any other illicit drugs. Patient has apparently gone out of the house only approximately 10 times this year and on each occasion , he has gone with a family member. The patient 41 year-old with psychiatric history of depression with psychosis, previous heart surgeries, the patient is , has 3 children's, unemployed, admitted due to brief psychosis. Consulted for second opinion. Chart review, case discussed Dr. Ellis and the nurse in charge Marilynn. On my evaluation the patient is found laying in his bed, staring to the roof, very disorganized, internally preoccupied, with a non sensical speech, multiple illogical statements. She doesn't know the reason his in the hospital. He does mention that he was using marijuana and K2. As per staff member the patient has been agitated, verbally hostile, even aggressive this morning needing ETOs. Tobacco Use In Past 30 Days: 5 or More Cigarettes/Day Alcohol Use: Never Hospital Course Patient was admitted voluntarily due to disorganized and psychotic thought processes and behavior. Psychiatric and psychosocial assessment were performed. Safety measures were taken. Patient was restarted in Abilify 5 mg twice a day, patient showed good response and no significant side effects to this medication. At the beginning the patient was irritable, very disorganized , with racing thoughts, but with redirection, medication and appropriate psychotherapy the patient came back to baseline. At some point the patient reported that he used "drugs"the could be responsible for this presentation. At the moment of this discharge the patient is a baseline, denies depression, denies anxiety, denies tyrell, denies psychosis, he is logical, coherent and relevant. Denies suicidal and homicidal ideation, denies visual and auditory hallucinations. He was seen by medicine, recommendations were appreciated. Patient was wildly educated about the importance of avoiding the use of illegal drugs. Results Blood Pressure 112 / 68 Vital Signs Date Time Temp Pulse Resp B/P (MAP) Pulse Ox O2 Delivery O2 Flow Rate FiO2 05/27/17 04:00 97.7 73 18 112/68 (83) 99 Laboratory Tests Test 05/26/17 06:52 05/26/17 11:29 05/26/17 14:40 05/27/17 06:50 Red Blood Count 3.66 MIL/MM3 (4.50-5.90) Hemoglobin 12.7 GM/DL (13.0-17.0) Hematocrit 37.5 % (39.0-51.0) Mean Corpuscular Volume 102.5 FL (80.0-100.0) Mean Corpuscular Hemoglobin 34.6 PG (27.0-34.0) Prothrombin Time 17.3 SEC (9.8-11.6) 16.0 SEC (9.8-11.6) Blood Urea Nitrogen 32 MG/DL (7-18) 21 MG/DL (7-18) Potassium Level 3.2 MEQ/L (3.5-5.1) Chloride Level 109 MEQ/L (98-107) 109 MEQ/L (98-107) Lactate Dehydrogenase 402 U/L (87-241) Folate GREATER THAN 20.0 NG/ML Laboratory Results Test 05/24/17 09:11 Cholesterol Level 195 MG/DL (120-200) HDL Cholesterol 58.0 MG/DL (40.0-60.0) Hemoglobin A1c 5.0 % (4.3-6.0) LDL Cholesterol 124 MG/DL (0-99) Triglycerides Level 67 MG/DL (42-150) Summary of Procedures None Imaging Last Impressions Shoulder X-Ray 05/25/17 0000 Signed Impressions: Service Date/Time: Thursday, May 25, 2017 19:42 - CONCLUSION: 1. No acute findings. Joel Garcia MD Head CT 05/25/17 0000 Signed Impressions: Service Date/Time: Thursday, May 25, 2017 19:39 - CONCLUSION: 1. No acute intracranial abnormalities. Joel Garcia MD Pending results at discharge: No Medications # of Antipsychotic meds at D/C: 1 Approp Antipsych med options 1 - Minimum of three failed multiple trials of monotherapy. 2 - Documented plan to taper to monotherapy due to previous use of multiple meds OR cross-taper in progress at D/C. 3 - Documentation of augmentation of Clozapine. 4 - Justification other than those listed in allowable values 1-3, document here : Discharge Discharge Date: May 27, 2017 Discharge Diagnosis: (1) Adjustment disorder, unspecified ICD Code: F43.20 - Adjustment disorder, unspecified Status: Acute (2) Brief psychotic disorder ICD Code: F23 - Brief psychotic disorder Pt Condition on Discharge: Stable Discharge Disposition: Discharge Home Discharge Instructions Diet Instructions: As Tolerated, No Restrictions Activities you can perform: Regular-No Restrictions Scheduled Appointment: Discharge Time > 30 minutes Mental Status Examination Appearance: Appropriate Consciousness: Alert Orientation: x4 Motor Activity: Normal gait Speech: Incoherent, Other (yelling at times) Language: Other Fund of Knowledge: Adequate, Inadequate Attention and Concentration: Inadequate Memory: Unremarkable Mood: Appropriate Affect: Other (restricted) Thought Process & Associations: Goal directed, Linear Thought Content: Appropriate Hallucination Type: None Delusion Type: None, Other Suicidal Ideation: No Suicidal Plan: No Suicidal Intention: No Homicidal Ideation: No Homicidal Plan: No Homicidal Intention: No Insight: Fair Judgment: Impulsive Discharge/Advance Care Plan Health Problems: (1) Brief psychotic disorder Goals to promote your health * To prevent worsening of your condition and complications * To maintain your health at the optimal level Directions to meet your goals Take your medications as prescribed Follow your dietary instruction Follow activity as directed Keep your appointments as scheduled Take your immunizations and boosters as scheduled If your symptoms worsen call your PCP, if no PCP go to Urgent Care Center or Emergency Room For 03/01 questions related to your inpatient stay or results of tests pending at discharge, please contact Dr. Alexander Gerber at Smoking is Dangerous to Your Health. Avoid second hand smoking Problem Qualifiers (1) Adjustment disorder, unspecified: Qualified Codes: F43.25 - Adjustment disorder with mixed disturbance of emotions and conduct Alexander Gerber MD May 27, 2017 10:22
[2017-05-27] MEDS: ENOXAPARIN SODIUM 60 MG/0.6 ML SYRINGE SQ SCH (13:00)
[2017-05-29] MEDS ORDERED: ABIL10TA8 PO (09:26)
== END 2017-05-27 13:25 | disposition home or self-care (01) | DRG 882 ==
LOC: NEPC 11:06 → NEDA 17:40 → H4EA 19:53 → H270 05-24 12:30 → H260 05-26 15:43
PROVIDERS: ADMIT Student in an Organized Health Care Education/Training Program; ATTEND Student in an Organized Health Care Education/Training Program
DX: F43.20 Adjustment disorder, unspecified (principal); I42.1 Obstructive hypertrophic cardiomyopathy; F23 Brief psychotic disorder; F32.9 Major depressive disorder, single episode, unspecified; F12.90 Cannabis use, unspecified, uncomplicated; E87.6 Hypokalemia; Z95.2 Presence of prosthetic heart valve; Z79.01 Long term (current) use of anticoagulants; Z95.810 Presence of automatic (implantable) cardiac defibrillator; F17.210 Nicotine dependence, cigarettes, uncomplicated; I10 Essential (primary) hypertension; M25.512 Pain in left shoulder; E55.9 Vitamin D deficiency, unspecified; D53.9 Nutritional anemia, unspecified
CPT/HCPCS: 70450; 73030; 80048; 80053; 80061; 80307; 81001; 82306; 82607; 82746; 83036; 83615; 83735; 83921; 84443; 85025; 85044; 85060; 85610; 93005; 99285; J1200; J1650; J3486; Q0163

== ENCOUNTER 2017-09-01 05:30 | Inpatient (IN) | payer MEDICAID ==
[2017-09-01] VITALS (12 sets, daily range): BP systolic 107–137; BP diastolic 59–89; PULSE 59–90; RESP 16–21; TEMP 97.8–99; O2SAT 94–100
[~2017-09-01] VITALS: Ht 175.3 cm; Wt 70.0 kg
[~2017-09-01 05:30] MED LIST changes: +ABIL10TA8 PO; -ALPR.5 PO; +ARIP1TAB11 PO; +ATEN50TA PO; +COUM2.5T PO; +CYMB30CA PO; -ECASA PO; -HYDR-3129 PO; -WARF2TAB PO
[2017-09-01 06:13] LABS: AUTOMATED NEUTROPHIL # 8.1 TH/MM3 (1.8-7.7); BASOPHIL # 0.1 TH/MM3 (0-0.2); BASOPHIL % 0.7 % (0.0-2.0); EOSINOPHIL % 0.2 % (0.0-4.0); LYMPH % 7.1 % (9.0-44.0); LYMPHOCYTE # 0.7 TH/MM3 (1.0-4.8); MEAN CELL VOLUME 103.1 FL (80.0-100.0); MEAN CORPUSCULAR HEMOGLOBIN 33.1 PG (27.0-34.0); MEAN CORPUSCULAR HGB CONC 32.1 % (32.0-36.0); MEAN PLATELET VOLUME 7.2 FL (7.0-11.0); MONO % 5.9 % (0.0-8.0); MONOCYTE # 0.6 TH/MM3 (0-0.9); NEUT % 86.1 % (16.0-70.0); PLATELET COUNT 377 TH/MM3 (150-450); RED BLOOD COUNT 1.67 MIL/MM3 (4.50-5.90); RED CELL DISTRIBUTION WIDTH 18.5 % (11.6-17.2); WHITE BLOOD COUNT 9.4 TH/MM3 (4.0-11.0)
[2017-09-01] MEDS ORDERED: SODIUM CHLOR 0.9% 250 ML INJ 250 ML IV ONE ×2 (06:15→06:45)
[2017-09-01 06:20] LABS: HEMATOCRIT 17.3 % (39.0-51.0); HEMOGLOBIN 5.5 GM/DL (13.0-17.0)
[2017-09-01] MEDS ORDERED: MOBI7.5T PO (06:27)
[2017-09-01 06:31] LABS: ALBUMIN 3.8 GM/DL (3.4-5.0); AST (GOT) 38 U/L (15-37); BICARBONATE 16.5 MEQ/L (21.0-32.0); BLOOD UREA NITROGEN 40 MG/DL (7-18); CALCIUM 8.2 MG/DL (8.5-10.1); CHLORIDE 106 MEQ/L (98-107); CREATININE 2.45 MG/DL (0.60-1.30); GLOMERULAR FILTRATION RATE 30 ML/MIN (>89); GLUCOSE,RANDOM 129 MG/DL (74-106); SODIUM (NA) 138 MEQ/L (136-145)
[2017-09-01 06:32] LABS: ALT (GPT) 48 U/L (12-78)
[2017-09-01 06:35] LABS: ALKALINE PHOSPHATASE 49 U/L (45-117); TOTAL BILIRUBIN ADULT 0.5 MG/DL (0.2-1.0); TOTAL PROTEIN 6.5 GM/DL (6.4-8.2)
[2017-09-01] MEDS ORDERED: PANTOPRAZOLE INJ 80 MG in SODIUM CHLORIDE 0.9% INJ 35 ML IV ONE (06:45)
[2017-09-01] MEDS ORDERED: PANTOPRAZOLE SODIUM 40 MG VIAL IV PUSH ONE (06:45)
[2017-09-01 07:06] LABS: BANDS 3 % (0-6); CORRECTED NUCLEATED RBC 1 /100 WBC (0-0); LYMPHOCYTES 6 % (9-44); MONOCYTES 5 % (0-8); NEUTROPHIL # MANUAL DIFF 8.4 TH/MM3 (1.8-7.7); NUCLEATED RED BLOOD CELL 1 (0-0); POLYS (SEG NEUTROPHILS) 86 % (16-70)
[2017-09-01 07:07] LABS: OVALOCYTES 1+ (NORMAL); POLYCHROMASIA 3.6 % (0.0-1.9)
[2017-09-01 07:08] LABS: TEARDROP RBCS 1+ (NORMAL)
--- NOTE | 2017-09-01 07:09 | PD ---
HPI Chief Complaint: Chest Pain Time Seen by Provider: 05:59 Travel History International Travel<30 days: No Contact w/Intl Traveler<30days: No Traveled to known affect area: No History of Present Illness HPI Patient is a 41-year-old male who 16 years ago had a valve [place] metal valve placed and 10 years later had cardiac surgery to remove scar tissue from his Left ventricle. For the last 2 weeks he has been taking Mobic'.( NSAID) BID for sternotomy pain and back pain chronic .. He denies having black tarry stools however he did say he vomited after drink coca cola and it did not look like Coke which is what he drinks all the time,,He report s what sounds like coffee ground coffee grounds emesis and he said yes. Patient is very pale diaphoretic in the ER. .. However he is not tachycardia. He is not hypotensive. He has not seen another doctor for this complaint he is not taking any antacids and again the Mobic's is only 2 weeks twice daily for the last 2 weeks every day. Pt is pale with abdominal pain . PFSH Past Medical History Arthritis: Yes (HAND) Atrial Fibrillation: Yes Blood Disorders: Yes (BLEEDING WHEN BRUSHING TEETH SCRATCH OF L TIBIAL AREA WITH BLEEDING DRSG ON) Anxiety: Yes Depression: Yes Heart Rhythm Problems: Yes (RAPID HEART RATE) Cancer: No Cardiovascular Problems: Yes (Mitral valve replacement) High Cholesterol: No Chemotherapy: No Chest Pain: Yes Congestive Heart Failure: Yes COPD: No Cerebrovascular Accident: No Diabetes: No Diminished Hearing: No Endocrine: No Genitourinary: No Headaches: No Hypertension: Yes Immune Disorder: No Musculoskeletal: Yes Neurologic: Yes Psychiatric: Yes (depression since heart surgery) Reproductive: No Migraines: No Myocardial Infarction: Yes Radiation Therapy: No Seizures: No Sleep Apnea: No Past Surgical History Abdominal Surgery: No AICD: No Arteriovenous Shunt: No Body Medical Devices: WAS TOLD HE HAS ANOTHER LEAKY VALVE Cardiac Surgery: Yes ( MITRAL VALVE REPLACEMENT 2000; AICD 2013; 08/27 SEPTOMYOMECTOMY) Ear Surgery: No Endocrine Surgery: No Eye Surgery: No Genitourinary Surgery: No Insulin Pump: No Joint Replacement: No Neurologic Surgery: No Oral Surgery: No Pacemaker: No Thoracic Surgery: No Valve Replacement: Yes (MITRAL VALVE SURGERY ) Other Surgery: Yes Social History Alcohol Use: No (QUIT) Tobacco Use: Yes Substance Use: Yes (SMOKES POT) Allergies-Medications (Allergen,Severity, Reaction): Coded Allergies: haloperidol (Unverified Allergy, Severe, DYSTONIC REACTION, 09/01/17) lorazepam (Unverified Allergy, Severe, SEVERE AGITATION, 09/01/17) promethazine (Unverified Allergy, Severe, SEVERE AGITATION, 09/01/17) zolpidem (Unverified Allergy, Severe, severe agitation, 09/01/17) Reported Meds & Prescriptions Reported Meds & Active Scripts Active Aripiprazole 5 Mg Tab 5 Mg PO BID [address] (Duloxetine HCl) 30 Mg Capdr 30 Mg PO DAILY Atenolol 50 Mg Tab 50 Mg PO BID Coumadin (Warfarin) 2.5 Mg Tab 2.5 Mg PO DAILY Reported Mobic (Meloxicam) 7.5 Mg Tab 7.5 Mg PO DAILY Review of Systems Except as stated in HPI: all other systems reviewed are Neg Gastrointestinal: Positive: Abdominal Pain (weakness) Physical Exam Narrative GENERAL: Pale diaphoretic SKIN: Warm and dry. Pale diaphoretic HEAD: Atraumatic. Normocephalic. EYES: Pupils equal and round. No scleral pale. No injection or drainage. ENT: No nasal bleeding or discharge. Mucous membranes pink and moist. NECK: Trachea midline. No JVD. CARDIOVASCULAR: Regular rate and rhythm. [place] valve auscultated sternotomy scar midline healed RESPIRATORY: No accessory muscle use. Clear to auscultation. Breath sounds equal bilaterally. GASTROINTESTINAL: Abdomen tender diffusely nondistended. Hepatic and splenic margins not palpable. Rectal exam is blackish stool guaiac positive MUSCULOSKELETAL: Extremities without clubbing, cyanosis, or edema. No obvious deformities. NEUROLOGICAL: Awake and alert. No obvious cranial nerve deficits. Motor grossly within normal limits. Five out of 5 muscle strength in the arms and legs. Normal speech. PSYCHIATRIC: Appropriate mood and affect; insight and judgment normal. Data Data Last Documented VS Orders Orders Complete Blood Count With Diff (09/01/17 05:59) Comprehensive Metabolic Panel (09/01/17 05:59) Ckmb (Isoenzyme) Profile (09/01/17 05:59) Troponin I (09/01/17 05:59) Lipase (09/01/17 05:59) Ct Abd/Pel W/O Iv Contrast (09/01/17 05:59) Type And Screen (09/01/17 05:59) Ct Thorax/ Chest Wo Iv Contras (09/01/17 ) Sodium Chlor 0.9% 250 Ml Inj (Ns 250 Ml (09/01/17 06:15) Pantoprazole Inj (Protonix Inj) (09/01/17 06:45) Pantoprazole Inj (Protonix Inj) (09/01/17 06:45) Blood Product Administration (09/01/17 06:32) Sodium Chlor 0.9% 250 Ml Inj (Ns 250 Ml (09/01/17 06:45) Sodium Chlor 0.9% 1000 Ml Inj (Ns 1000 M (09/01/17 07:15) Clonazepam (Klonopin) (09/01/17 07:30) Admit Order (Ed Use Only) (09/01/17 07:32) Consult Gastroenterology (09/01/17 ) Red Blood Cells (Rbc) (09/01/17 06:00) AGID (09/01/17 06:00) Red Blood Cells (Rbc) (09/01/17 06:00) Labs Laboratory Tests Test 09/01/17 06:00 09/01/17 07:30 White Blood Count 9.4 TH/MM3 Red Blood Count 1.67 MIL/MM3 Hemoglobin 5.5 GM/DL Hematocrit 17.3 % Mean Corpuscular Volume 103.1 FL Mean Corpuscular Hemoglobin 33.1 PG Mean Corpuscular Hemoglobin Concent 32.1 % Red Cell Distribution Width 18.5 % Platelet Count 377 TH/MM3 Mean Platelet Volume 7.2 FL Neutrophils (%) (Auto) 86.1 % Lymphocytes (%) (Auto) 7.1 % Monocytes (%) (Auto) 5.9 % Eosinophils (%) (Auto) 0.2 % Basophils (%) (Auto) 0.7 % Neutrophils # (Auto) 8.1 TH/MM3 Lymphocytes # (Auto) 0.7 TH/MM3 Monocytes # (Auto) 0.6 TH/MM3 Eosinophils # (Auto) 0.0 TH/MM3 Basophils # (Auto) 0.1 TH/MM3 CBC Comment AUTO DIFF Differential Total Cells Counted 100 Neutrophils % (Manual) 86 % Band Neutrophils % 3 % Lymphocytes % 6 % Monocytes % 5 % Neutrophils # (Manual) 8.4 TH/MM3 Nucleated Red Blood Cells 1 /100 WBC Differential Comment FINAL DIFF MANUAL Platelet Morphology Comment NORMAL Polychromasia 3.6 % Tear Drop Cells 1+ Ovalocytes 1+ Blood Urea Nitrogen 40 MG/DL Creatinine 2.45 MG/DL Random Glucose 129 MG/DL Total Protein 6.5 GM/DL Albumin 3.8 GM/DL Calcium Level 8.2 MG/DL Alkaline Phosphatase 49 U/L Aspartate Amino Transf (AST/SGOT) 38 U/L Alanine Aminotransferase (ALT/SGPT) 48 U/L Total Bilirubin 0.5 MG/DL Sodium Level 138 MEQ/L Potassium Level 3.5 MEQ/L Chloride Level 106 MEQ/L Carbon Dioxide Level 16.5 MEQ/L Anion Gap 16 MEQ/L Estimat Glomerular Filtration Rate 30 ML/MIN Total Creatine Kinase 79 U/L Troponin I 0.10 NG/ML Lipase 161 U/L Prothrombin Time 29.0 SEC Prothromb Time International Ratio 2.9 RATIO Activated Partial Thromboplast Time 28.9 SEC MDM Medical Decision Making Medical Screen Exam Complete: Yes Emergency Medical Condition: Yes Differential Diagnosis GI bleed from NSAID overusage vs erosive ulcer vs other source of GI bleed, Pt is pale will be anemic and gauiac positive . pale from blood loss gastro . septic shock or shock from blood loss Narrative Course Patient's H&H is 10/27. Severely anemic he is guaiac positive black stool Mobic she has been taking twice daily must be causing some erosion of his stomach lining he reports having had coffee-ground emesis as well given Protonix 80 push. An 8 mg an hour drip liter fluid and blood transfusion is ordered and he is will be admitted to the floor for further eval of his GI system and the anemia Critical Care Narrative critical care time 45 minutes for blood resusitiation diagnosing anemia and GI bleed guaiaic exam and fluid resus then blood resus and CT chest ABdo eval and ICU discussion and admit Diagnosis Primary Impression: GI bleed Qualified Codes: K29.71 - Gastritis, unspecified, with bleeding Additional Impression: Anemia Qualified Codes: D64.9 - Anemia, unspecified Admitting Information Admitting Physician Requests: Admit Eber Jerry MD Sep 01, 2017 07:09
[2017-09-01] MEDS ORDERED: SODIUM CHLOR 0.9% 1000 ML INJ 1,000 ML IV ONE (07:15)
[2017-09-01] MEDS ORDERED: clonazePAM 0.5 MG TAB PO ONE (07:30)
--- NOTE | 2017-09-01 08:19 | RADRPT ---
EXAM DATE/TIME: 09/01/2017 07:15 [facility] COMPARISON: CT PULMONARY ANGIOGRAM, April 16, 2014, 12:19. INDICATIONS : Chest pain. RADIATION DOSE: 10.06 CTDIvol (mGy) ; Combined studies - Thorax/Abdomen/Pelvis MEDICAL HISTORY : Myocardial infarction. Congestive heart failure. Hypertension. SURGICAL HISTORY : Mitral valve replacement. ENCOUNTER: Initial ACUITY: 1 day PAIN SCALE: 8/10 LOCATION: Bilateral chest TECHNIQUE: Volumetric scanning of the chest was performed. Using automated exposure control and adjustment of t he mA and/or kV according to patient size, radiation dose was kept as low as reasonably achievable to obtain optimal diagnostic quality images. DICOM format image data is available electronically for r eview and comparison. Follow-up recommendations for detected pulmonary nodules are based at a minimum on nodule size and pa tient risk factors according to Fleischner Society Guidelines. FINDINGS: LUNGS: There is no consolidation or pneumothorax. No concerning pulmonary nodule is visualized. PLEURAE: There is no pleural thickening or pleural effusion. MEDIASTINUM: Stable small central mediastinal lymph nodes. Sternotomy wires. Pacemaker. AXILLAE: Within normal limits. No lymphadenopathy. MUSCULOSKELETAL: Within normal limits for patient age. CONCLUSION: No acute CT findings of the chest Juan Rivera MD on September 01, 2017 at 8:13 Board Certified Radiologist. This report was verified electronically.
--- NOTE | 2017-09-01 08:22 | RADRPT ---
EXAM DATE/TIME: 09/01/2017 07:15 [facility] COMPARISON: No previous studies available for comparison. INDICATIONS : Sudden onset of chest and abdominal pain. ORAL CONTRAST: No oral contrast ingested. RADIATION DOSE: 10.06 CTDIvol (mGy) ; Combined studies - Thorax/Abdomen/Pelvis MEDICAL HISTORY : Myocardial infarction. Congestive heart failure. Hypertension. SURGICAL HISTORY : Mitral valve replacement. ENCOUNTER: Initial ACUITY: 1 day PAIN SCALE: 5/10 LOCATION: Bilateral upper quadrant TECHNIQUE: Volumetric scanning of the abdomen and pelvis was performed. Using automated exposure control and ad justment of the mA and/or kV according to patient size, radiation dose was kept as low as reasonably achievable to obtain optimal diagnostic quality images. DICOM format image data is available electro nically for review and comparison. FINDINGS: There is a small volume of free peritoneal fluid identified, including perihepatic and perisplenic fl uid in addition to fluid in the dependent pelvis. This is nonspecific LOWER LUNGS: The visualized lower lungs are clear. LIVER: Homogeneous density without lesion. There is no dilation of the biliary tree. No calcified gallston es. SPLEEN: Normal size without lesion. PANCREAS: Within normal limits. KIDNEYS: Normal in size and shape. There is no mass, stone, or hydronephrosis. ADRENAL GLANDS: Within normal limits. VASCULAR: There is no aortic aneurysm. BOWEL/MESENTERY: The stomach, small bowel, and colon demonstrate no acute abnormality. There is no free intraperitone al air or fluid. ABDOMINAL WALL: Within normal limits. RETROPERITONEUM: There is no lymphadenopathy. BLADDER: No wall thickening or mass. REPRODUCTIVE: Within normal limits. INGUINAL: There is no lymphadenopathy or hernia. MUSCULOSKELETAL: Within normal limits for patient age. CONCLUSION: Nonspecific free peritoneal fluid. No acute focal abnormalities. Juan Rivera MD on September 01, 2017 at 8:16 Board Certified Radiologist. This report was verified electronically.
[2017-09-01 08:41] LABS: INTERNATIONAL NORMALIZED RATIO 2.9 RATIO
--- NOTE | 2017-09-01 08:46 | PD.CONS ---
HPI History of Present Illness This is a 41 year old with hx metal heart valve placement 2000, HOCM s/p septomyectomy 2017, who presented to ER with chest pain, chills, "wasn't feeling good." Admits flu like symptoms. GI has been consulted for GIB. Admits seeing black tarry stool for the last 2-3 days. Had multiple episodes vomiting with emesis that looked like "coke" 2 weeks ago but not since. Admits lower abd pain like he is being punched that has been significantly worse in the last 3 days. This pain was intermittent but has been constant since yesterday. He started taking mobic 2 weeks ago. No prior hx GIB. Never had EGD or colonoscopy. He takes warfarin. He sees a HOCM specialist in [place], Cody Roy [phone]. (Lashell Velazquez) PFSH Past Medical History HOCM Past Surgical History valve replacement septomyectomy (Lashell Velazquez) Coded Allergies: haloperidol (Unverified Allergy, Severe, DYSTONIC REACTION, 09/01/17) lorazepam (Unverified Allergy, Severe, SEVERE AGITATION, 09/01/17) promethazine (Unverified Allergy, Severe, SEVERE AGITATION, 09/01/17) zolpidem (Unverified Allergy, Severe, severe agitation, 09/01/17) Family History HOCM Social History No etoh smokes 1ppd denies illicit drug use hx benzo abuse per EMR (Lashell Velazquez) Review of Systems Constitutional: COMPLAINS OF: Fatigue, Chills Endocrine: DENIES: Polydipsia Eyes: DENIES: Blurred vision Ears, nose, mouth, throat: DENIES: Hearing loss Respiratory: DENIES: Cough Cardiovascular: COMPLAINS OF: Chest pain Gastrointestinal: COMPLAINS OF: Abdominal pain, Black stools, Nausea, Vomiting , Hematemesis Genitourinary: DENIES: Hematuria Musculoskeletal: DENIES: Joint Swelling Integumentary: DENIES: Jaundice Hematologic/lymphatic: DENIES: Bruising Immunologic/allergic: DENIES: Urticaria Neurologic: DENIES: Abnormal gait Psychiatric: DENIES: Confusion (Lashell Velazquez) GI Exam Vitals I&O Vital Signs Date Time Temp Pulse Resp B/P (MAP) Pulse Ox O2 Delivery O2 Flow Rate FiO2 09/01/17 05:42 97.8 59 16 118/77 (91) 94 Room Air Imaging Last Impressions Abdomen/Pelvis CT 09/01/17 0559 Signed Impressions: Service Date/Time: August 07:15 - CONCLUSION: Nonspecific free peritoneal fluid. No acute focal abnormalities. Juan Rivera MD Chest CT 09/01/17 0000 Signed Impressions: Service Date/Time: August 07:15 - CONCLUSION: No acute CT findings of the chest Juan Rivera MD Laboratory Test 09/01/17 06:00 09/01/17 07:30 White Blood Count 9.4 TH/MM3 Red Blood Count 1.67 MIL/MM3 Hemoglobin 5.5 GM/DL Hematocrit 17.3 % Mean Corpuscular Volume 103.1 FL Mean Corpuscular Hemoglobin 33.1 PG Mean Corpuscular Hemoglobin Concent 32.1 % Red Cell Distribution Width 18.5 % Platelet Count 377 TH/MM3 Mean Platelet Volume 7.2 FL Neutrophils (%) (Auto) 86.1 % Lymphocytes (%) (Auto) 7.1 % Monocytes (%) (Auto) 5.9 % Eosinophils (%) (Auto) 0.2 % Basophils (%) (Auto) 0.7 % Neutrophils # (Auto) 8.1 TH/MM3 Lymphocytes # (Auto) 0.7 TH/MM3 Monocytes # (Auto) 0.6 TH/MM3 Eosinophils # (Auto) 0.0 TH/MM3 Basophils # (Auto) 0.1 TH/MM3 CBC Comment AUTO DIFF Differential Total Cells Counted 100 Neutrophils % (Manual) 86 % Band Neutrophils % 3 % Lymphocytes % 6 % Monocytes % 5 % Neutrophils # (Manual) 8.4 TH/MM3 Nucleated Red Blood Cells 1 /100 WBC Differential Comment FINAL DIFF MANUAL Platelet Morphology Comment NORMAL Polychromasia 3.6 % Tear Drop Cells 1+ Ovalocytes 1+ Blood Urea Nitrogen 40 MG/DL Creatinine 2.45 MG/DL Random Glucose 129 MG/DL Total Protein 6.5 GM/DL Albumin 3.8 GM/DL Calcium Level 8.2 MG/DL Alkaline Phosphatase 49 U/L Aspartate Amino Transf (AST/SGOT) 38 U/L Alanine Aminotransferase (ALT/SGPT) 48 U/L Total Bilirubin 0.5 MG/DL Sodium Level 138 MEQ/L Potassium Level 3.5 MEQ/L Chloride Level 106 MEQ/L Carbon Dioxide Level 16.5 MEQ/L Anion Gap 16 MEQ/L Estimat Glomerular Filtration Rate 30 ML/MIN Total Creatine Kinase 79 U/L Troponin I 0.10 NG/ML Lipase 161 U/L Physical Examination HEENT: PERRL; normocephalic; atraumatic; no jaundice. CHEST: CTA CARDIAC: RRR + murmur ABDOMEN: semifirm, nondistended, diffuselly TTP; no hepatosplenomegaly; bowel sounds are present in all four quadrants. EXTREMITIES: No clubbing, cyanosis, or edema. SKIN: pale MASSAGE THERAPIST: No focal deficits; alert and oriented times three. (Lashell Velazquez) Assessment and Plan Plan ASSESSMENT - coffee ground emesis, melanotic stool - UGIB using mobic for last 2 weeks. 2 weeks ago had mult episodes CGE, last few days melena - anemia - hgb 5.5 on admission, macrocytic. 2/2 above. never had EGD or colonoscopy before. he is not sure if he wants procedures right now - abd pain - c/o lower abd pain but tender diffusely on exam. could be ulcers vs gastritis. CT abd unremarkable aside from nonspecific peritoneal fluid. - chest pain - chest CT neg. hx HOCM, s/p heart valve replacement, recent septomyectomy 2017. Cody Roy [phone]. PLAN - NPO except ice chips ok - EGD and colonoscopy, timing TBD, INR is 2.9 and pt not sure he wants procedures - consider cardiology consult - INR may need to be corrected prior to endoscopy - monitor labs - transfuse as needed - PPI - further recs after Dr Frazier sees pt pt seen by myself and Dr Frazier and this note is on her behalf (Lashell Velazquez) Physician Comments seen, examined agree with above patietn in agreement for egd/colonoscopy (Deb Frazier MD) Lashell Velazquez Sep 01, 2017 08:46 Deb Frazier MD Sep 01, 2017 16:05
[2017-09-01] MEDS ORDERED: HYDROmorphone HCL PF 2 MG/ML VIAL IV PUSH ONE (09:00)
[2017-09-01] MEDS ORDERED: ONDANSETRON HCL 4 MG/2 ML VIAL IV PUSH ONE (09:00)
[2017-09-01] MEDS ORDERED: LACTULOSE SYRUP 20 GM/30 ML CUP PO PRN (09:30)
[2017-09-01] MEDS ORDERED: SODIUM CHLORIDE 0.9% FLUSH 10 ML FLUSH IV FLUSH PRN ×2 (09:30)
[2017-09-01] MEDS ORDERED: oxyCODONE/ACETAMINOPHEN 5 MG/325 MG TAB PO PRN (09:30)
[2017-09-01] MEDS ORDERED: MAGNESIUM HYDROXIDE SUSP 30 ML CUP PO PRN (09:30)
[2017-09-01] MEDS ORDERED: SENNOSIDES 8.6 MG TAB PO PRN (09:30)
[2017-09-01] MEDS ORDERED: MORPHINE SULFATE 2 MG/ML SYRINGE IV PUSH PRN (09:30)
[2017-09-01] MEDS ORDERED: BISACODYL 10 MG SUPP RECTAL PRN (09:30)
[2017-09-01] MEDS ORDERED: ACETAMINOPHEN 325 MG TAB PO PRN ×2 (09:30)
[2017-09-01] MEDS ORDERED: NALOXONE HCL 0.4 MG/ML AMP IV PUSH PRN (09:30)
[2017-09-01] MEDS ORDERED: METOCLOPRAMIDE HCL 10 MG/2 ML VIAL IV PUSH PRN (09:30)
[2017-09-01] MEDS: PANTOPRAZOLE SODIUM 40 MG VIAL IV PUSH SCH ×2 (09:30→19:55)
--- NOTE | 2017-09-01 09:55 | PD ---
Data Data Last Documented VS Vital Signs Date Time Temp Pulse Resp B/P (MAP) Pulse Ox O2 Delivery O2 Flow Rate FiO2 09/01/17 05:42 97.8 59 16 118/77 (91) 94 Room Air Orders Orders Complete Blood Count With Diff (09/01/17 05:59) Comprehensive Metabolic Panel (09/01/17 05:59) Ckmb (Isoenzyme) Profile (09/01/17 05:59) Troponin I (09/01/17 05:59) Lipase (09/01/17 05:59) Ct Abd/Pel W/O Iv Contrast (09/01/17 05:59) Type And Screen (09/01/17 05:59) Ct Thorax/ Chest Wo Iv Contras (09/01/17 ) Sodium Chlor 0.9% 250 Ml Inj (Ns 250 Ml (09/01/17 06:15) Pantoprazole Inj (Protonix Inj) (09/01/17 06:45) Pantoprazole Inj (Protonix Inj) (09/01/17 06:45) Blood Product Administration (09/01/17 06:32) Sodium Chlor 0.9% 250 Ml Inj (Ns 250 Ml (09/01/17 06:45) Sodium Chlor 0.9% 1000 Ml Inj (Ns 1000 M (09/01/17 07:15) Clonazepam (Klonopin) (09/01/17 07:30) Admit Order (Ed Use Only) (09/01/17 07:32) Consult Gastroenterology (09/01/17 ) Red Blood Cells (Rbc) (09/01/17 06:00) Labs Laboratory Tests Test 09/01/17 06:00 09/01/17 07:30 White Blood Count 9.4 TH/MM3 Red Blood Count 1.67 MIL/MM3 Hemoglobin 5.5 GM/DL Hematocrit 17.3 % Mean Corpuscular Volume 103.1 FL Mean Corpuscular Hemoglobin 33.1 PG Mean Corpuscular Hemoglobin Concent 32.1 % Red Cell Distribution Width 18.5 % Platelet Count 377 TH/MM3 Mean Platelet Volume 7.2 FL Neutrophils (%) (Auto) 86.1 % Lymphocytes (%) (Auto) 7.1 % Monocytes (%) (Auto) 5.9 % Eosinophils (%) (Auto) 0.2 % Basophils (%) (Auto) 0.7 % Neutrophils # (Auto) 8.1 TH/MM3 Lymphocytes # (Auto) 0.7 TH/MM3 Monocytes # (Auto) 0.6 TH/MM3 Eosinophils # (Auto) 0.0 TH/MM3 Basophils # (Auto) 0.1 TH/MM3 CBC Comment AUTO DIFF Differential Total Cells Counted 100 Neutrophils % (Manual) 86 % Band Neutrophils % 3 % Lymphocytes % 6 % Monocytes % 5 % Neutrophils # (Manual) 8.4 TH/MM3 Nucleated Red Blood Cells 1 /100 WBC Differential Comment FINAL DIFF MANUAL Platelet Morphology Comment NORMAL Polychromasia 3.6 % Tear Drop Cells 1+ Ovalocytes 1+ Blood Urea Nitrogen 40 MG/DL Creatinine 2.45 MG/DL Random Glucose 129 MG/DL Total Protein 6.5 GM/DL Albumin 3.8 GM/DL Calcium Level 8.2 MG/DL Alkaline Phosphatase 49 U/L Aspartate Amino Transf (AST/SGOT) 38 U/L Alanine Aminotransferase (ALT/SGPT) 48 U/L Total Bilirubin 0.5 MG/DL Sodium Level 138 MEQ/L Potassium Level 3.5 MEQ/L Chloride Level 106 MEQ/L Carbon Dioxide Level 16.5 MEQ/L Anion Gap 16 MEQ/L Estimat Glomerular Filtration Rate 30 ML/MIN Total Creatine Kinase 79 U/L Troponin I 0.10 NG/ML Lipase 161 U/L Prothrombin Time 29.0 SEC Prothromb Time International Ratio 2.9 RATIO Activated Partial Thromboplast Time 28.9 SEC [facility] Medical Record Reviewed: Yes Supervised Visit with ERICA: No Narrative Course Please refer to the eye, provider note. The case was discussed with hospitalist Dr. Millan. An INR was added on which was resulted at 2.9. 2 units of packed cells were ordered by the outgoing provider blood bank was called a few times to expedite administration. JOHNNY noted an likely correlates with elevated Tn. Hydromorphone 1mg IV and Zofran 4mg IV ordered at approximately 915AM after patient complained of abdominal pain. Last Impressions Abdomen/Pelvis CT 09/01/17 0559 Signed Impressions: Service Date/Time: August 07:15 - CONCLUSION: Nonspecific free peritoneal fluid. No acute focal abnormalities. Juan Rivera MD Chest CT 09/01/17 0000 Signed Impressions: Service Date/Time: August 07:15 - CONCLUSION: No acute CT findings of the chest Juan Rivera MD Diagnosis Primary Impression: GI bleed Qualified Codes: K29.71 - Gastritis, unspecified, with bleeding Additional Impression: Anemia Qualified Codes: D64.9 - Anemia, unspecified Admitting Information Admitting Physician Requests: Albert Agustin MD Sep 01, 2017 09:55
--- NOTE | 2017-09-01 11:18 | HHI.HP ---
[facility] Service [facility] Primary Care Physician CAMELIA Admission Diagnosis GI bleed and cooffe ground emesis amd melena Diagnoses: (1) S/P MVR (mitral valve replacement) Diagnosis: Principal (2) AICD (automatic cardioverter/defibrillator) present Diagnosis: Secondary (3) History of endocarditis Diagnosis: Principal (4) Anxiety and depression Diagnosis: Secondary (5) Tobacco abuse Diagnosis: Secondary (6) Alcohol abuse Diagnosis: Secondary (7) Hypertrophic cardiomyopathy Diagnosis: Secondary (8) Anemia Diagnosis: Principal (9) GI bleed Diagnosis: Principal Chief Complaint: Chest pain Travel History International Travel<30 Days: No Contact w/Intl Traveler <30 Da: No Traveled to Known Affected Are: No History of Present Illness Patient is a 41-year-old male who approximately 16 years ago had a [place] mechanical valve placed then had cardiac surgery to remove scar tissue from left ventricle few years ago.. Also had septoplasty about a year ago. Patient recently saw a new physician Dr. Mayes and been taking Mobic NSAID twice daily for sternotomy pain and back pain which is chronic, he denies having any black stools however he did state that he vomited after drinking Coca-Cola but the vomit did not look like coke cola which he drinks all the time per the emergency department he reported what sounded like coffee- ground emesis noted to be pale. He been taking the Mobic for the past 2 weeks has some abdominal pain. Patient found to have a quite decreased hemoglobin in the 5 range will be transfused will be admitted and will consult gastroenterology. Review of Systems ROS Limitations: Altered Mental Status Constitutional: DENIES: Diaphoretic episodes, Fatigue, Fever, Weight gain, Weight loss, Chills, Dizziness, Change in appetite, Night Sweats Endocrine: DENIES: Heat/cold intolerance, Polydipsia, Polyuria, Polyphagia Eyes: DENIES: Blurred vision, Diplopia, Eye inflammation, Eye pain, Vision loss , Photosensitivity, Double Vision Ears, nose, mouth, throat: DENIES: Tinnitus, Hearing loss, Vertigo, Nasal discharge, Oral lesions, Throat pain, Hoarseness, Ear Pain, Running Nose, Epistaxis Respiratory: DENIES: Apneas, Cough, Snoring, Wheezing, Hemoptysis, Sputum production, Shortness of breath Cardiovascular: COMPLAINS OF: Chest pain, Dyspnea on Exertion, DENIES: Palpitations, Syncope, PND, Lower Extremity Edema, Orthopnea, Claudication Gastrointestinal: COMPLAINS OF: Vomiting, DENIES: Abdominal pain, Black stools , Bloody stools, Constipation, Diarrhea, Nausea Genitourinary: DENIES: Sexual dysfunction, Urinary frequency, Urinary incontinence Musculoskeletal: COMPLAINS OF: Joint pain, Muscle aches, Back pain, Neck pain, DENIES: Stiffness, Joint Swelling Integumentary: DENIES: Abnormal pigmentation, Nail changes, Pruritus, Rash Hematologic/lymphatic: DENIES: Bruising, Lymphadenopathy Immunologic/allergic: DENIES: Eczema, Urticaria Neurologic: DENIES: Abnormal gait, Headache, Localized weakness, Paresthesias, Seizures, Speech Problems, Tremor, Poor Balance Psychiatric: COMPLAINS OF: Anxiety, Confusion, Depression, DENIES: Mood changes Except as stated in HPI: all other systems reviewed are Neg Past Family Social History Past Medical History HOCM History of endocarditis Osteoarthritis Anxiety depression History of mitral valve mechanical replacement due to endocarditis History of congestive heart failure History of myocardial infarction Past Surgical History Mechanical valve replacement in 2000 septomyectomy in August 2016 AICD placement in 2013 AICD placement with exchange and generator change Reported Medications Reported Meds & Active Scripts Active Aripiprazole 5 Mg Tab 5 Mg PO BID [address] (Duloxetine HCl) 30 Mg Capdr 30 Mg PO DAILY Atenolol 50 Mg Tab 50 Mg PO BID Coumadin (Warfarin) 2.5 Mg Tab 2.5 Mg PO DAILY Reported Mobic (Meloxicam) 7.5 Mg Tab 7.5 Mg PO DAILY Allergies: Coded Allergies: haloperidol (Unverified Allergy, Severe, DYSTONIC REACTION, 09/01/17) lorazepam (Unverified Allergy, Severe, SEVERE AGITATION, 09/01/17) promethazine (Unverified Allergy, Severe, SEVERE AGITATION, 09/01/17) zolpidem (Unverified Allergy, Severe, severe agitation, 09/01/17) Active Ordered Medications Current Medications Sodium Chloride 250 ml @ 250 mls/hr BOLUS ONCE IV ; Start 09/01/17 at 06:15; Stop 09/01/17 at 07:14; Status DC Pantoprazole Sodium (Protonix Inj) 80 mg ONCE ONCE IV PUSH Last administered on 09/01/17at 07:29; Start 09/01/17 at 06:45; Stop 09/01/17 at 06:46; Status DC Pantoprazole Sodium 80 mg/ Sodium Chloride 35 ml @ 420 mls/hr BOLUS ONCE IV Last administered on 09/01/17at 08:33; Start 09/01/17 at 06:45; Stop 09/01/17 at 06:49; Status DC Sodium Chloride 250 ml @ 15 mls/hr ONCE ONCE IV ; Start 09/01/17 at 06:45; Stop 09/01/17 at 23:24 Sodium Chloride 1,000 ml @ 250 mls/hr BOLUS ONCE IV Last administered on 09/01at 07:28; Start 09/01/17 at 07:15; Stop 09/01/17 at 11:14 Clonazepam (KlonoPIN) 0.5 mg ONCE ONCE PO Last administered on 09/01/17at 07:29 ; Start 09/01/17 at 07:30; Stop 09/01/17 at 07:31; Status DC Hydromorphone HCl (Dilaudid Pf Inj) 1 mg ONCE ONCE IV PUSH Last administered on 09/01/17at 09:38; Start 09/01/17 at 09:00; Stop 09/01/17 at 09:01; Status DC Ondansetron HCl (Zofran Inj) 4 mg ONCE ONCE IV PUSH Last administered on at 09:38; Start 09/01/17 at 09:00; Stop 09/01/17 at 09:01; Status DC Pantoprazole Sodium (Protonix Inj) 40 mg Q12HR IV PUSH ; Start 09/01/17 at 09:30 Sodium Chloride (NS Flush) 2 ml UNSCH PRN IV FLUSH FLUSH AFTER USING IV ACCESS ; Start 09/01/17 at 09:30; Stop 09/01/17 at 10:12; Status DC Sodium Chloride (NS Flush) 2 ml BID IV FLUSH ; Start 09/01/17 at 21:00; Stop at 21:00; Status DC Sodium Chloride 1,000 ml @ 100 mls/hr Q10H IV ; Start 09/01/17 at 09:22 Pantoprazole Sodium (Protonix Inj) 40 mg BID IV PUSH ; Start 09/01/17 at 21:00; Stop 09/01/17 at 21:00; Status DC Sodium Chloride (NS Flush) 2 ml UNSCH PRN IV FLUSH FLUSH AFTER USING IV ACCESS ; Start 09/01/17 at 09:30 Sodium Chloride (NS Flush) 2 ml BID IV FLUSH ; Start 09/01/17 at 21:00 Acetaminophen (Tylenol) 650 mg Q4H PRN PO TEMP > 100.4; Start 09/01/17 at 09:30 Ondansetron HCl (Zofran Inj) 4 mg Q6H PRN IVP NAUSEA OR VOMITING; Start at 09:30 Metoclopramide HCl (Reglan Inj) 5 mg Q6H PRN IV PUSH NAUSEA OR VOMITING; Start 09/01/17 at 09:30 Acetaminophen (Tylenol) 650 mg Q6H PRN PO PAIN SCALE 1 TO 2; Start 09/01/17 at 09:30 Oxycodone/ Acetaminophen (Percocet 5-325 Mg) 1 tab Q6H PRN PO PAIN SCALE 3 TO 5; Start 09/01/17 at 09:30 Oxycodone/ Acetaminophen (Percocet 10-325 Mg) 1 tab Q6H PRN PO PAIN SCALE 6 TO 10; Start 09/01/17 at 09:30 Morphine Sulfate (Morphine Inj) 2 mg Q3H PRN IV PUSH Pain 3-5; if unable to take PO; Start 09/01/17 at 09:30 Morphine Sulfate (Morphine Inj) 4 mg Q3H PRN IV PUSH Pain 6-10;if unable to take PO; Start 09/01/17 at 09:30; Stop 09/01/17 at 10:09; Status DC Morphine Sulfate (Morphine Inj) 4 mg Q3H PRN IV PUSH BREAKTHROUGH PAIN; Start 09/01/17 at 09:30 Naloxone HCl (Narcan Inj) 0.4 mg UNSCH PRN IV PUSH SEE LABEL COMMENTS; Start at 09:30 Senna/Docusate Sodium (Ronda-Colace) 1 tab BID PO ; Start 09/01/17 at 21:00 Magnesium Hydroxide (Milk Of Magnesia Liq) 30 ml Q12H PRN PO Mild constipation ; Start 09/01/17 at 09:30 Sennosides (Senokot) 17.2 mg Q12H PRN PO Moderate constipation; Start 09/01/17 at 09:30 Bisacodyl (Dulcolax Supp) 10 mg DAILY PRN RECTAL SEVERE CONSITIPATION; Start at 09:30 Lactulose (Lactulose Liq) 30 ml DAILY PRN PO SEVERE CONSITIPATION; Start at 09:30 Morphine Sulfate (Morphine Inj) 4 mg Q3H PRN IV PUSH Pain 6-10;if unable to take PO; Start 09/01/17 at 10:15 Family History HOCM History of endocarditis Social History No etoh smokes 1ppd denies illicit drug use hx benzo abuse per EMR Possible history of drug abuse in the past Physical Exam Vital Signs Vital Signs Date Time Temp Pulse Resp B/P (MAP) Pulse Ox O2 Delivery O2 Flow Rate FiO2 09/01/17 10:47 98.4 87 20 109/60 99 09/01/17 09:05 82 18 116/59 (78) 99 Room Air 09/01/17 05:42 97.8 59 16 118/77 (91) 94 Room Air Physical Exam GENERAL: This is a well-nourished, well-developed patient, in no apparent distress. Quite pale appearing in nature SKIN: No rashes, ecchymoses or lesions. Cool and dry. Quite pale appearing in nature HEAD: Atraumatic. Normocephalic. No temporal or scalp tenderness. EYES: Pupils equal round and reactive. Extraocular motions intact. No scleral icterus. No injection or drainage. Pale sclera ENT: Nose without bleeding, purulent drainage or septal hematoma. Throat without erythema, tonsillar hypertrophy or exudate. Uvula midline. Airway patent. NECK: Trachea midline. No JVD or lymphadenopathy. Supple, nontender, no meningeal signs. CARDIOVASCULAR: IRRegular rate and rhythm without murmurs, gallops, or rubs. Positive click RESPIRATORY: Clear to auscultation. Breath sounds equal bilaterally. No wheezes , rales, or rhonchi. GASTROINTESTINAL: Abdomen soft, non-tender, nondistended. No hepato-splenomegaly , or palpable masses. No guarding. MUSCULOSKELETAL: Extremities without clubbing, cyanosis, or edema. No joint tenderness, effusion, or edema noted. No calf tenderness. Negative Homans sign bilaterally. NEUROLOGICAL: Awake and alert. Cranial nerves II through XII intact. Motor and sensory grossly within normal limits. Five out of 5 muscle strength in all muscle groups. Normal speech. Insight and judgment is limited Mood and behavior not appropriate Laboratory Laboratory Tests Test 09/01/17 06:00 09/01/17 07:30 White Blood Count 9.4 Red Blood Count 1.67 Hemoglobin 5.5 Hematocrit 17.3 Mean Corpuscular Volume 103.1 Mean Corpuscular Hemoglobin 33.1 Mean Corpuscular Hemoglobin Concent 32.1 Red Cell Distribution Width 18.5 Platelet Count 377 Mean Platelet Volume 7.2 Neutrophils (%) (Auto) 86.1 Lymphocytes (%) (Auto) 7.1 Monocytes (%) (Auto) 5.9 Eosinophils (%) (Auto) 0.2 Basophils (%) (Auto) 0.7 Neutrophils # (Auto) 8.1 Lymphocytes # (Auto) 0.7 Monocytes # (Auto) 0.6 Eosinophils # (Auto) 0.0 Basophils # (Auto) 0.1 CBC Comment AUTO DIFF Differential Total Cells Counted 100 Neutrophils % (Manual) 86 Band Neutrophils % 3 Lymphocytes % 6 Monocytes % 5 Neutrophils # (Manual) 8.4 Nucleated Red Blood Cells 1 Differential Comment FINAL DIFF MANUAL Platelet Morphology Comment NORMAL Polychromasia 3.6 Tear Drop Cells 1+ Ovalocytes 1+ Blood Urea Nitrogen 40 Creatinine 2.45 Random Glucose 129 Total Protein 6.5 Albumin 3.8 Calcium Level 8.2 Alkaline Phosphatase 49 Aspartate Amino Transf (AST/SGOT) 38 Alanine Aminotransferase (ALT/SGPT) 48 Total Bilirubin 0.5 Sodium Level 138 Potassium Level 3.5 Chloride Level 106 Carbon Dioxide Level 16.5 Anion Gap 16 Estimat Glomerular Filtration Rate 30 Total Creatine Kinase 79 Troponin I 0.10 Lipase 161 Prothrombin Time 29.0 Prothromb Time International Ratio 2.9 Activated Partial Thromboplast Time 28.9 Result Diagram: 09/01/17 0600 09/01/17 0600 Imaging Last Impressions Abdomen/Pelvis CT 09/01/17 0559 Signed Impressions: Service Date/Time: August 07:15 - CONCLUSION: Nonspecific free peritoneal fluid. No acute focal abnormalities. Juan Rivera MD Chest CT 09/01/17 0000 Signed Impressions: Service Date/Time: August 07:15 - CONCLUSION: No acute CT findings of the chest MD Iza Almanzar VTE Risk Assessment Caprini VTE Risk Assessment: Mod/High Risk (score >= 2) Caprini Risk Assessment Model Point Value = 1 Point Value = 2 Point Value = 3 Point Value = 5 Age 41-60 Minor surgery BMI > 25 kg/m2 Swollen legs Varicose veins or History of unexplained or recurrent spontaneous Oral contraceptives or hormone replacement Sepsis (< 1 month) Serious lung disease, including pneumonia (< 1 month) Abnormal pulmonary function Acute myocardial infarction Congestive heart failure (< 1 month) History of inflammatory bowel disease Medical patient at bed rest Age 61-74 Arthroscopic surgery Major open surgery (> 45 min) Laparoscopic surgery (> 45 min) Malignancy Confined to bed (> 72 hours) Immobilizing plaster cast Central venous access Age >= 75 History of VTE Family history of VTE Factor V Leiden Prothrombin 25351A Lupus anticoagulant Anticardiolipin antibodies Elevated serum homocysteine Heparin-induced thrombocytopenia Other congenital or acquired thrombophilia Stroke (< 1 month) Elective arthroplasty Hip, pelvis, or leg fracture Acute spinal cord injury (< 1 month) Prophylaxis Regimen Total Risk Factor Score Risk Level Prophylaxis Regimen 0-1 Low Early ambulation 2 Moderate Order ONE of the following: *Sequential Compression Device (SCD) *Heparin 5000 units SQ BID 3-4 Higher Order ONE of the following medications: *Heparin 5000 units SQ TID *Enoxaparin/Lovenox 40 mg SQ daily (WT < 150 kg, CrCl > 30 mL/min) *Enoxaparin/Lovenox 30 mg SQ daily (WT < 150 kg, CrCl > 10-29 mL/min) *Enoxaparin/Lovenox 30 mg SQ BID (WT < 150 kg, CrCl > 30 mL/min) AND/OR *Sequential Compression Device (SCD) 5 or more Highest Order ONE of the following medications: *Heparin 5000 units SQ TID (Preferred with Epidurals) *Enoxaparin/Lovenox 40 mg SQ daily (WT < 150 kg, CrCl > 30 mL/min) *Enoxaparin/Lovenox 30 mg SQ daily (WT < 150 kg, CrCl > 10-29 mL/min) *Enoxaparin/Lovenox 30 mg SQ BID (WT < 150 kg, CrCl > 30 mL/min) AND *Sequential Compression Device (SCD) Assessment and Plan Problem List: (1) S/P MVR (mitral valve replacement) ICD Code: Z95.4 - S/P MVR (mitral valve replacement) Status: Acute Permanent Comment: Need prophyllaxis - Due to endocarditis Last Edited By: Ozzy Edwards on May 26, 2014 13:06 (2) AICD (automatic cardioverter/defibrillator) present ICD Code: Z95.810 - AICD (automatic cardioverter/defibrillator) present Status: Acute (3) History of endocarditis ICD Code: Z86.79 - History of endocarditis Status: Acute (4) Anxiety and depression ICD Code: F41.8 - Anxiety and depression Status: Acute (5) Tobacco abuse ICD Code: Z72.0 - Tobacco abuse Status: Acute (6) Anemia ICD Code: D64.9 - Anemia, unspecified Status: Acute (7) GI bleed ICD Code: K92.2 - Gastrointestinal hemorrhage, unspecified Status: Acute (8) Hypertrophic cardiomyopathy ICD Code: I42.2 - Hypertrophic cardiomyopathy Status: Acute Permanent Comment: Dr[facility]. Stress-echo Last Edited By: Ozzy Edwards on May 26, 2014 13:05 Assessment and Plan Suspected upper GI bleed --we will continue on Protonix -- will transfuse --will consult gastroenterology --Guaiac positive stools Anemia severe-blood loss anemia --We will transfuse Hold NSAIDs-- -history of chronic Coumadin-we will hold at this time Anxiety depression continue on his psychiatric medications Mechanical mitral valve replacement due to endocarditis will need to be on chronic anticoagulation Hold Mobic and hold warfarin at this time History of AICD and pacemaker Septal myomectomy Hypertension/tachycardia stabilized by atenolol twice daily Chronic anticoagulation due to mechanical mitral valve --will hold Coumadin at this time and get daily INRs Renal insufficiency/dehydration --Continue fluid rehydration --will transfuse Positive troponin may be secondary to endocarditis versus the anemia versus other GI will need to do endoscopies in the future. After hemoglobin has improved A.m. labs Continue current treatment Code Status Full code Discussed Condition With Emergency room physician and mother and patient and emergency room RN Physician Certification 2 Midnight Certification Type: Admission for Inpatient Services Order for Inpatient Services The services are ordered in accordance with Medicare regulations or non- Medicare payer requirements, as applicable. In the case of services not specified as inpatient-only, they are appropriately provided as inpatient services in accordance with the 2-midnight benchmark. Estimated LOS (days): 3 days is the estimated time the patient will need to remain in the hospital, assuming treatment plan goals are met and no additional complications. Post-Hospital Plan: Not yet determined Problem Qualifiers (1) Anemia: Qualified Codes: D64.9 - Anemia, unspecified (2) GI bleed: Qualified Codes: K29.71 - Gastritis, unspecified, with bleeding Jaime Millan DO Sep 01, 2017 11:18
[2017-09-01] MEDS ORDERED: NICOTINE 14 MG/24 HR PATCH T-DERMAL ONE (11:30)
[2017-09-01] MEDS ORDERED: NICOTINE 14 MG/24 HR PATCH T-DERMAL SCH (11:30)
[2017-09-01] MEDS ORDERED: LORazepam 1 MG TAB PO PRN (12:15)
[2017-09-01] MEDS ORDERED: PEG (High)/E-LYTE SOLN 4000 ML BTL PO ONE (12:15)
--- NOTE | 2017-09-01 14:09 | EKG ---
Date Performed: 09/01/2017 Time Performed: 05:40:23 PTAGE: 41 years EKG: Marked baseline artifact Sinus rhythm POSSIBLE LEFT ATRIAL ENLARGEMENT INTRAVENTRICULAR CONDUCTION DELAY ABNORMAL ECG I would repeat the E KG given the marked artifact PREVIOUS TRACING : 05/26/2017 11.10 DOCTOR: Vinh Gomez Interpretating Date/Time 09/01/2017 14:07:49
[2017-09-01] MEDS: SODIUM CHLOR 0.9% 1000 ML INJ 1,000 ML IV SCH ×2 (14:26→17:10)
[2017-09-01] MEDS: DULoxetine HCl DR 30 MG CAP PO SCH (14:27)
[2017-09-01] MEDS: oxyCODONE/ACETAMINOPHEN 10 MG/325 MG TAB PO PRN ×2 (17:09→22:38)
[2017-09-01] MEDS: MORPHINE SULFATE 4 MG/ML INJ IV PUSH PRN ×2 (19:51→23:36)
[2017-09-01] MEDS: DOCUSATE SODIUM 50 MG/SENNA 8.6 MG TAB PO SCH (19:53)
[2017-09-01] MEDS: ARIPiprazole 5 MG TAB PO SCH (19:53)
[2017-09-01] MEDS: ATENOLOL 50 MG TAB PO SCH (19:53)
[2017-09-01] MEDS: SODIUM CHLORIDE 0.9% FLUSH 10 ML FLUSH IV FLUSH SCH (19:55)
[2017-09-01 20:50] LABS: HEMATOCRIT 29.3 % (39.0-51.0)
[2017-09-01] MEDS ORDERED: PANTOPRAZOLE SODIUM 40 MG VIAL IV PUSH SCH (21:00)
[2017-09-01] MEDS ORDERED: SODIUM CHLORIDE 0.9% FLUSH 10 ML FLUSH IV FLUSH SCH (21:00)
[2017-09-01] MEDS: clonazePAM 0.5 MG TAB PO PRN (21:15)
[2017-09-02] VITALS (13 sets, daily range): BP systolic 100–142; BP diastolic 60–97; PULSE 79–113; RESP 12–22; TEMP 95.7–99.3; O2SAT 93–100
[2017-09-02 02:38] LABS: AUTOMATED NEUTROPHIL # 3.1 TH/MM3 (1.8-7.7); BASOPHIL % 0.2 % (0.0-2.0); HEMATOCRIT 34.3 % (39.0-51.0); HEMOGLOBIN 11.4 GM/DL (13.0-17.0); LYMPH % 13.1 % (9.0-44.0); LYMPHOCYTE # 0.5 TH/MM3 (1.0-4.8); MEAN CELL VOLUME 91.9 FL (80.0-100.0); MEAN CORPUSCULAR HEMOGLOBIN 30.6 PG (27.0-34.0); MEAN CORPUSCULAR HGB CONC 33.3 % (32.0-36.0); MEAN PLATELET VOLUME 7.6 FL (7.0-11.0); MONO % 10.3 % (0.0-8.0); MONOCYTE # 0.4 TH/MM3 (0-0.9); NEUT % 76.4 % (16.0-70.0); PLATELET COUNT 264 TH/MM3 (150-450); RED BLOOD COUNT 3.73 MIL/MM3 (4.50-5.90); RED CELL DISTRIBUTION WIDTH 20.5 % (11.6-17.2); WHITE BLOOD COUNT 4.1 TH/MM3 (4.0-11.0)
[2017-09-02 02:47] LABS: INTERNATIONAL NORMALIZED RATIO 3.5 RATIO; PROTHROMBIN TIME - PATIENT 35.7 SEC (9.8-11.6)
[2017-09-02] MEDS: MORPHINE SULFATE 4 MG/ML INJ IV PUSH PRN ×2 (03:24→07:47)
[2017-09-02 03:34] LABS: ALBUMIN 3.2 GM/DL (3.4-5.0); ALKALINE PHOSPHATASE 39 U/L (45-117); ALT (GPT) 40 U/L (12-78); AST (GOT) 33 U/L (15-37); BICARBONATE 22.7 MEQ/L (21.0-32.0); BLOOD UREA NITROGEN 41 MG/DL (7-18); CALCIUM 7.7 MG/DL (8.5-10.1); CHLORIDE 107 MEQ/L (98-107); CREATININE 1.69 MG/DL (0.60-1.30); FREE T4 0.79 NG/DL (0.76-1.46); GLOMERULAR FILTRATION RATE 45 ML/MIN (>89); GLUCOSE,RANDOM 110 MG/DL (74-106); MAGNESIUM 1.7 MG/DL (1.5-2.5); PHOSPHORUS 4.1 MG/DL (2.5-4.9); SODIUM (NA) 140 MEQ/L (136-145); TOTAL BILIRUBIN ADULT 0.9 MG/DL (0.2-1.0); TOTAL PROTEIN 6.1 GM/DL (6.4-8.2)
[2017-09-02 04:15] LABS: BANDS 18 % (0-6); CORRECTED NUCLEATED RBC 10 /100 WBC (0-0); LYMPHOCYTES 17 % (9-44); METAMYELOCYTES 19 % (0-1); MONOCYTES 9 % (0-8); MYELOCYTES 1 % (0-0); NUCLEATED RED BLOOD CELL 10 (0-0); POLYS (SEG NEUTROPHILS) 36 % (16-70)
[2017-09-02 04:16] LABS: DOHLE BODIES PRESENT (NONE SEEN); TOXIC VACUOLATION PRESENT (NONE SEEN)
[2017-09-02 04:18] LABS: POLYCHROMASIA 3.9 % (0.0-1.9)
[2017-09-02 04:20] LABS: ACANTHOCYTES OCC (NORMAL); BURR CELLS 1+ (NORMAL); KERATOCYTES OCC (NORMAL)
[2017-09-02] MEDS ORDERED: SODIUM BICARBONATE 8.4% INJ 50 MEQ/50 ML SYR IV ONE (05:00)
[2017-09-02] MEDS ORDERED: FUROSEMIDE 40 MG/4 ML VIAL IV PUSH ONE (05:00)
[2017-09-02] MEDS ORDERED: EPINEPHrine HCL (1:10,000) 1 MG/10 ML SYRINGE IV ONE (05:00)
[2017-09-02] MEDS: clonazePAM 0.5 MG TAB PO PRN ×2 (05:03→12:46)
[2017-09-02] MEDS: oxyCODONE/ACETAMINOPHEN 10 MG/325 MG TAB PO PRN (05:04)
[2017-09-02] MEDS: SODIUM CHLOR 0.9% 1000 ML INJ 1,000 ML IV SCH ×3 (06:11→20:00)
[2017-09-02] MEDS: ARIPiprazole 5 MG TAB PO SCH ×2 (07:47→21:00)
[2017-09-02] MEDS: PANTOPRAZOLE SODIUM 40 MG VIAL IV PUSH SCH (07:47)
[2017-09-02] MEDS: DULoxetine HCl DR 30 MG CAP PO SCH (07:47)
[2017-09-02] MEDS: ATENOLOL 50 MG TAB PO SCH ×2 (07:47→21:00)
[2017-09-02] MEDS: DOCUSATE SODIUM 50 MG/SENNA 8.6 MG TAB PO SCH ×2 (07:48→21:00)
[2017-09-02] MEDS: REMOVE OLD PATCH T-DERMAL SCH (07:49)
[2017-09-02] MEDS: NICOTINE 14 MG/24 HR PATCH T-DERMAL SCH (07:49)
[2017-09-02] MEDS: SODIUM CHLORIDE 0.9% FLUSH 10 ML FLUSH IV FLUSH SCH ×2 (09:00→21:00)
--- NOTE | 2017-09-02 09:19 | HHI.PR ---
Subjective Remarks Follow-up GI bleed. The patient states that he feels short of breath. He has not been sleeping well. He feels very tired, fatigued. Also reporting chest pain. No nausea or vomiting. Does not believe there has been any further bleeding. Objective Vitals Vital Signs Date Time Temp Pulse Resp B/P (MAP) Pulse Ox O2 Delivery O2 Flow Rate FiO2 09/02/17 08:00 95.7 90 20 100/60 (73) 96 09/02/17 04:00 95.7 89 22 124/97 (106) 100 09/02/17 00:42 97 21 09/02/17 00:19 98.7 79 20 128/73 (91) 96 09/01/17 20:00 98.7 90 21 123/89 (100) 95 09/01/17 16:00 98.7 86 18 130/76 (94) 100 09/01/17 14:28 84 18 123/75 (91) 98 Room Air 09/01/17 14:09 98.4 90 18 119/68 09/01/17 13:13 84 18 137/76 (96) 99 Nasal Cannula 2.00 09/01/17 12:30 98.6 84 20 137/76 99 09/01/17 12:30 98.6 84 20 137/76 99 09/01/17 12:19 98.6 88 18 114/75 99 09/01/17 11:22 99.0 86 20 107/61 100 09/01/17 11:20 99.0 86 18 107/61 100 09/01/17 10:47 98.4 87 20 109/60 99 I/O 09/01/17 09/01/17 09/01/17 09/02/17 09/02/17 09/02/17 07:00 15:00 23:00 07:00 15:00 23:00 Intake Total 1085 ml 960 ml 1580 ml Output Total 800 ml Balance 1085 ml 960 ml 780 ml Intake Oral 540 ml 580 ml IV Total 35 ml 1000 ml Packed Cells 800 ml 400 ml Blood Product IV Normal Saline Flush 250 ml 20 ml Output Urine Total 800 ml # Voids 0 # Bowel Movements 0 0 Result Diagram: 09/02/1722409/02/17224 Imaging Last Impressions Abdomen/Pelvis CT 09/01/17 0559 Signed Impressions: Service Date/Time: August 07:15 - CONCLUSION: Nonspecific free peritoneal fluid. No acute focal abnormalities. Juan Rivera MD Chest CT 09/01/17 0000 Signed Impressions: Service Date/Time: August 07:15 - CONCLUSION: No acute CT findings of the chest Juan Rivera MD Objective Remarks General: Chronically ill-appearing male in no acute distress. Heart: Regular rate and rhythm. No murmur. Lungs: Clear to auscultation bilaterally. No wheezes, rales, or rhonchi. Breathing is nonlabored. Abdomen: Soft, tender to palpation in the right upper quadrant and midepigastric regions, nondistended. Extremities: No lower extremity edema. Psych: Alert and oriented. Procedures None Urinary Catheter: No Vascular Central Line Catheter: No A/P Problem List: (1) S/P MVR (mitral valve replacement) ICD Code: Z95.4 - S/P MVR (mitral valve replacement) Status: Acute Permanent Comment: Need prophyllaxis - Due to endocarditis Last Edited By: Ozzy Edwards on May 26, 2014 13:06 (2) AICD (automatic cardioverter/defibrillator) present ICD Code: Z95.810 - AICD (automatic cardioverter/defibrillator) present Status: Acute (3) History of endocarditis ICD Code: Z86.79 - History of endocarditis Status: Acute (4) Anxiety and depression ICD Code: F41.8 - Anxiety and depression Status: Acute (5) Tobacco abuse ICD Code: Z72.0 - Tobacco abuse Status: Acute (6) Anemia ICD Code: D64.9 - Anemia, unspecified Status: Acute (7) GI bleed ICD Code: K92.2 - Gastrointestinal hemorrhage, unspecified Status: Acute (8) Hypertrophic cardiomyopathy ICD Code: I42.2 - Hypertrophic cardiomyopathy Status: Acute Permanent Comment: Dr. [facility]. Stress-echo Last Edited By: Ozzy Edwards on May 26, 2014 13:05 Assessment and Plan 1. GI bleed: Continue Protonix. Status post transfusion. Appreciate GI recommendations. Planning for EGD/colonoscopy today. Avoid NSAIDs. 2. Acute blood loss anemia: Secondary to GI bleed. Hemoglobin improved following transfusion of PRBCs. Coumadin on hold. 3. Anxiety/depression: Continue home medications. 4. Mechanical mitral valve: On chronic anticoagulation. Warfarin on hold secondary to acute GI bleed. Will ask hematology for assistance with managing anticoagulation. INR is therapeutic. FFP ordered by gastroenterology prior to procedure. 5. Hypertension, tachycardia: Continue atenolol. 6. Elevated troponin: Likely demand mediated secondary to anemia. He does report chest pain. Will request cardiology evaluation as well. Patient does have a significant cardiac history and has an AICD in place. His occupational health manager is in [place]. 7. DVT prophylaxis: Coumadin on hold, but however INR is still therapeutic. Problem Qualifiers (1) Anemia: Qualified Codes: D64.9 - Anemia, unspecified (2) GI bleed: Qualified Codes: K29.71 - Gastritis, unspecified, with bleeding Isacc Fuller MD Sep 02, 2017 09:19
[2017-09-02] MEDS ORDERED: PHENYLEPH/NS 1000 MCG/10 ML SYR IV ONE (12:00)
[2017-09-02] MEDS ORDERED: NORMOSOL R INJ 1,000 ML IV ONE (12:00)
[2017-09-02] MEDS ORDERED: PROPOFOL 200 MG/20 ML AMP IV ONE (12:00)
[2017-09-02] MEDS ORDERED: ESMOLOL HCL 100 MG/10 ML VIAL IV ONE (12:00)
[2017-09-02] MEDS ORDERED: SUCCINYLCHOLINE CHLORIDE 100 MG/5 ML SYRINGE IV PUSH ONE (12:00)
[2017-09-02] MEDS ORDERED: GLYCOPYRROLATE 1 MG/5 ML SYRINGE IV PUSH ONE (12:00)
[2017-09-02] MEDS ORDERED: SODIUM CHLOR 0.9% 250 ML INJ 250 ML IV ONE (12:00)
[2017-09-02] MEDS ORDERED: LACTATED RINGER'S 1000 ML INJ 1,000 ML IV ONE (12:00)
[2017-09-02] MEDS ORDERED: LIDOCAINE HCL 1% PF 5 ML SYRINGE OTHER ONE (12:00)
[2017-09-02] MEDS: MORPHINE SULFATE 2 MG/ML SYRINGE IV PUSH PRN (12:28)
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
[2017-09-02 13:07] LABS: HEMATOCRIT 31.9 % (39.0-51.0); HEMOGLOBIN 10.8 GM/DL (13.0-17.0)
[2017-09-02 13:18] LABS: INTERNATIONAL NORMALIZED RATIO 2.3 RATIO; PROTHROMBIN TIME - PATIENT 23.2 SEC (9.8-11.6)
[2017-09-02] MEDS ORDERED: SODIUM CHLORID 0.9% 500 ML IV PRN (14:45)
[2017-09-02] MEDS ORDERED: CHLORHEXIDINE GLUCONATE 2 % 1 PACK (2 CLOTHS) TOPICAL PRN (14:45)
[2017-09-02] MEDS ORDERED: LACTATED RINGER'S 1000 ML IV PRN (14:45)
[2017-09-02] MEDS ORDERED: METOPROLOL TARTRATE 25 MG TAB PO PRN (14:45)
[2017-09-02] MEDS ORDERED: POVIDONE IODINE 5% (ANTISEPSIS KIT) 4 APPLICATIONS EACH NARE PRN (14:45)
[2017-09-02] MEDS ORDERED: VASOPRESSIN 20 UNITS/ML VIAL ONE (17:20)
--- NOTE | 2017-09-02 17:28 | GIPROC ---
[facility] [address] [facility]. [facility] [place], [address] EGD PROCEDURE REPORT EXAM DATE: 09/02/2017 PATIENT NAME: Sandro Mcintosh MR #: [id number] BIRTHDATE: 1975 ATTENDING: Deb Frazier MD ORDER #: [id number] DIRECTOR STAFFING: Katharine Aguilar RN STATUS: inpatient INDICATIONS: The patient is a 41 yr old male here for an EGD due to gi bleeding anemia PROCEDURE PERFORMED: EGD, diagnostic MEDICATIONS: None and Per Anesthesia. TOPICAL ANESTHETIC: none CONSENT: The patient understands the risks and benefits of the procedure and understands that these risks include, but are not limited to: sedation, allergic reaction, infection, perforation and/or bleeding. Alternative means of evaluation and treatment include, among others: physical exam, x-rays, and/or surgical intervention. The patient elects to proceed with this endoscopic procedure. medical equipment was checked for proper function. Hand hygiene and appropriate measures for infection prevention was taken. After the risks, benefits and alternatives of the procedure were thoroughly explained, Informed consent was verified, confirmed and timeout was successfully executed by the treatment team. The patient was anesthetized with topical anesthesia and the endoscope was introduced through the mouth and advanced to the bulb of duodenum. Retroflexed views revealed no abnormalities The gastroscope was then slowly withdrawn and removed. Hiatal hernia large amount of old blood and retained food in stomach, suctioned duodenla bulb ulcer-blocking duodenla bulb,unable to pass scope abdomen got more distended. ADVERSE EVENTS: There were no complications. IMPRESSIONS: 1. Hiatal hernia large amount of old blood and retained food in stomach, suctioned duodenla bulb ulcer-blocking duodenla bulb,unable to pass scope abdomen got more distended 2. Retroflexed views revealed no abnormalities RECOMMENDATIONS: 1. Anti-reflux regimen 2. Stat abominal x ray surgical consult stat ffp prbc transfer isc PATIENT CONDITION: stable DISPOSITION: Inpatient REPEAT EXAM: EGD Deb Frazier MD eSigned: Deb Frazier MD 2017-09-02 17:27:40.693 cc:
[2017-09-02] MEDS ORDERED: CIPROFLOXACIN 400 MG PREMIX 200 ML ONE (17:52)
[2017-09-02] MEDS ORDERED: FLUCONAZOLE 400 MG PREMIX BAG 200 ML ONE (17:52)
[2017-09-02] MEDS ORDERED: metroNIDAZOLE 500 MG INJ 100 ML IV ONE (17:52)
[2017-09-02] MEDS ORDERED: LEVOFLOXACIN 500 MG PREMIX INJ 100 ML IV SCH (18:00)
[2017-09-02] MEDS ORDERED: SODIUM BICARBONATE 8.4% INJ 50 MEQ/50 ML SYR ONE (18:19)
--- NOTE | 2017-09-02 18:24 | RADRPT ---
EXAM DATE/TIME: 09/02/2017 17:47 [facility] COMPARISON: No previous studies available for comparison. INDICATIONS : Distention. MEDICAL HISTORY : Myocardial infarction. Congestive heart failure. Hypertension. SURGICAL HISTORY : Mitral valve replacement. ENCOUNTER: Subsequent ACUITY: 2 days PAIN SCORE: Non-responsive. LOCATION: Abdomen. FINDINGS: Scattered locules of air the upper abdomen. Findings are suspicious for free intraperitoneal air. The re is left basilar consolidation. Previous sternotomy and pacer lead placement. CONCLUSION: 1. Probable free intraperitoneal air. Further evaluation with abdomen and pelvic CT recommended. Joel Garcia MD on September 02, 2017 at 18:19 Board Certified Radiologist. This report was verified electronically.
[2017-09-02] MEDS ORDERED: PROPOFOL 1000 MG/100 ML INJ 100 ML ONE (19:22)
[2017-09-02] MEDS ORDERED: NOREPINEPHRINE 4 MG/4 ML AMP ONE (19:23)
[2017-09-02] MEDS ORDERED: Post-op Orders (for Pharmacy) XX ONE (19:30)
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
[2017-09-02] MEDS ORDERED: MIDAZOLAM HCL 2 MG/2 ML VIAL ONE (19:43)
--- NOTE | 2017-09-02 19:44 | EKG ---
Date Performed: 09/02/2017 Time Performed: 04:09:22 PTAGE: 41 years EKG: Sinus rhythm Possible left atrial abnormality Left bundle branch block Abnormal ECG PREVIOUS TRACING : 09/01/2017 05.40 DOCTOR: Papito Mohan Interpretating Date/Time 09/02/2017 19:43:09
[2017-09-02] MEDS ORDERED: DO NOT ADM ANY ANTICOAGULANT DRUGS PRN (19:45)
--- NOTE | 2017-09-02 19:58 | MB ---
cc: Michael Varma MD DATE: 09/02/2017 REASON FOR CONSULTATION: Peritonitis with sepsis. HISTORY OF PRESENT ILLNESS: Mr. Mcintosh is an unfortunate 41-year-old gentleman who was apparently admitted on 09/01/2017 for upper GI bleed and abdominal pain. He was found to have a hemoglobin of 5 on his initial admission. Apparently, he has had the flu recently and was taking a large amount of nonsteroidal anti-inflammatories, including Advil, ibuprofen and Mobic. The patient was taking these medications for approximately 2 weeks. He was admitted to the medical service and GI consultation was obtained. The patient was undergoing an upper endoscopy by Dr. Frazier when she noted a large duodenal ulcer. At the conclusion of the procedure, the patient became hemodynamically unstable and massively distended. Dr. Frazier was concerned about a possible perforation of the duodenal ulcer. I was called to the procedure room where I examined the patient. The patient had just been intubated by anesthesia. On exam, his abdomen was markedly distended and tender. His abdomen was quite tight and he obviously had some sort of perforation. PAST MEDICAL HISTORY: Includes anxiety and depression. He also has had some history of previous mental illness. PAST SURGICAL HISTORY: Extensive and includes multiple cardiac procedures including mechanical heart valve and a subsequent septoplasty. MEDICATIONS: Extensive and documented in the chart. ALLERGIES: HALDOL, LORAZEPAM, PROMETHAZINE AND ZOLPIDEM. FAMILY HISTORY: Noncontributory. SOCIAL HISTORY: Documented no alcohol use, cigarette use, no drug use, but there is a question of some benzodiazepine abuse in the past. REVIEW OF SYSTEMS: Unobtainable. PHYSICAL EXAMINATION: VITAL SIGNS: Temperature is 98, pulse is 120, blood pressure is 100/70, respiratory rate, he is intubated. GENERAL: This is a chronically ill-appearing gentleman. HEENT: He is intubated. He has an orogastric tube in place. His mucous membranes are moist. LUNGS: Clear to auscultation bilaterally. HEART: S1, S2, tachycardic. ABDOMEN: Markedly distended, diffusely tender. No bowel sounds are present. EXTREMITIES: No gross deformity x 4. NEUROLOGIC: Alert and oriented x 3. LABORATORY DATA: White blood cell count earlier today was 4, hemoglobin was 11, platelet count was 264. He had 76% neutrophils. Electrolytes were remarkable for a creatinine of 1.69. LFTs were within normal limits. IMAGING STUDIES: CT scan of the abdomen and pelvis obtained yesterday shows a small amount of free air up above the liver and a moderate amount of free fluid. IMPRESSION: Perforated bowel with peritonitis and sepsis. PLAN: The patient will be brought directly to the operating room from the GI procedure room. I am currently unavailable, but Dr. Watson is here in the operating room with the patient and will start the procedure immediately. This was all discussed with the patient's family by Dr. Frazier, the electrical equipment technician who just completed her upper endoscopy. The family understands this is an emergent procedure and carries significant risk for complication. As stated, Dr. Watson is going to initiate the surgical procedure and I will come to assist him when I become available. MD LUIS Camejo/TARIQ , 07:26 PM , 07:57 PM
[2017-09-02] MEDS: metroNIDAZOLE 500 MG INJ 100 ML IV SCH (20:00)
[2017-09-02] MEDS ORDERED: *morphine SULFATE 4 MG/ML PERIprocedure ONLY ONE (20:14)
--- NOTE | 2017-09-02 20:14 | HHI.GIFU ---
GI Follow-up Note Consult Follow-up post egd, while still in endoscopy suite, awaiting to be transferred to PACU, became unstable-see anaesthesia notes , abdomen became more distended - anaesthesia intubated patient, patient was transferred emergently to or for exploratory laparotomy Discussed with family,mother , findings, risk , benefits, need for emergency surgery . Please see surgical op notes . post laparotomy discussed with surgery, cardiology, dye box operator and family OP report -perforated duodenal ulcer,secondary NSAIDs use , as per surgery looks like was an old sealed perforation . It was a pleasure seeing Sandro Mcintosh. Thank you for this consult. Entered by: Deb Patel MD Sep 02, 2017 20:14
--- NOTE | 2017-09-02 20:35 | RADRPT ---
EXAM DATE/TIME: 09/02/2017 19:40 [facility] COMPARISON: No previous studies available for comparison. INDICATIONS : Central line placement. MEDICAL HISTORY : Myocardial infarction. Congestive heart failure. Hypertension. SURGICAL HISTORY : Mitral valve replacement. ENCOUNTER: Subsequent ACUITY: 1 day PAIN SCORE: Non-responsive. LOCATION: Bilateral chest FINDINGS: A single view of the chest demonstrates endotracheal tube in good position. NG enters stomach. Pacer lead overlies right ventricle. Cardiomegaly. Postop CABG and mitral valve replacement. Left basilar a ir space consolidation. Mild right basilar opacity. Right central line in superior vena cava. CONCLUSION: Cardiomegaly with basilar consolidation or atelectasis in the left lower lobe. Previous mitral valve replacement. Right central line in superior vena cava without pneumothorax Joel Garcia MD on September 02, 2017 at 20:31 Board Certified Radiologist. This report was verified electronically.
--- NOTE | 2017-09-02 21:33 | MP ---
cc: Joel Watson MD DATE OF OPERATION: 09/02/2017 PREOPERATIVE DIAGNOSIS: Extremis with decline in clinical examination during endoscopy, most likely secondary to perforated duodenal ulcer. POSTOPERATIVE DIAGNOSIS: Perforated duodenal ulcer with massive contamination. PROCEDURE PERFORMED: 1. Exploratory laparotomy. 2. Jay patch of a 1 cm duodenal ulcer with duodenal ulcer repair. 3. Placement of drain at the duodenum. 4. Feeding jejunostomy, 10 cm distal to the ligament of Treitz. 5. Abdominal washout. ANESTHESIA: General. SURGEON: Joel Watson MD SIGNING TEACHER: Micheal Varma MD INDICATIONS FOR PROCEDURE: This is a 41-year-old gentleman who apparently has been in the hospital a day or so. He was found to be severely anemic. He has a heart valve. He was on Coumadin. Dr. Frazier was in the endoscopy lab doing endoscopy when he became clinically unstable and his abdomen became rock hard. Dr. Varma initially saw the patient, but was involved in some other health care with other patients and asked me to be involved to expedite him going to the operating room because of his clinical condition. He was brought from the endoscopy suite to the operating room and his abdomen was very tight and firm and hemodynamically unstable. I discussed with Dr. Frazier. DETAILS OF PROCEDURE: The patient was in the operating room. We quickly prepped and draped. We made an incision from the xiphoid down to the left of the umbilicus. Massive air returns and probably 3 liters of greenish fluid that is thick. Obviously, this has been going on for a while. We then irrigate copiously. I could see the perforated duodenal ulcer on the anterior surface of the duodenum just about 3 cm distal to the pylorus. The gallbladder was slightly distended in reaction to the inflammation. The liver is smooth. No other gross abnormalities seen. Large bowel is dilated. The small bowel is dilated. His appendix looks normal. The descending colon looks normal, although dilated. He has a fair amount of stool in the transverse colon. We irrigate with 3-4 liters of saline. We then performed a Jay patch by using 3-0 silk pop-offs to place 4 sutures to reapproximate this to create a seal. A Jay patch is then made out of the omentum, which is released from the transverse colon using the Harmonic scalpel, laid in with the sutures and secured down. After that, the NG tube is placed and we secure it just past the pylorus. Because of the amount of spillage and inflammatory response it was felt necessary to place a RAYMOND in the right upper quadrant, placed over the Jay patch and just behind the gallbladder. This is secured to the skin with 3-0 nylon. We then placed a feeding jejunostomy by taking a 20 Vietnamese red rubber tube and create an enterotomy 10 cm distal to the ligament of Treitz and secured into place with a nylon stitch at the skin and to the anterior abdominal wall with a silk stitch. We then irrigate some more and after the irrigating solution was removed, it is noted that during the irrigation and evacuation of this thick green cloudy fluid we did notice this inflammatory response for this has been ongoing for some time, probably related to his taking of ibuprofen and Advil for his aches and pains. After we felt adequate washout was performed we then closed the fascia with a #1 PDS in a running fashion. Skin is reapproximated with a skin stapler. Sterile bandage were applied. The patient returned to the recovery room. Will remain intubated on the ventilator in the intensive care unit. Dr. Frazier had talked to the brand executive. I discussed with the mother and father in the waiting room the intraoperative findings and the need for urgent surgery prior to me talking to them. They appear to understand. Apparently Dr. Frazier had talked to them during a portion of the procedure. They were very grateful that I was able to assist in management of his care. I told them that he is still not out of the haddad. He is fairly sick and may be on the ventilator for a few days depending on his clinical status. Joel Watson MD JDB/rt , 08:56 PM , 09:32 PM DEEP
[2017-09-03] VITALS (15 sets, daily range): BP systolic 99–116; BP diastolic 54–60; PULSE 66–92; RESP 16; TEMP 97.4–98.3; O2SAT 92–97
[2017-09-03] MEDS: PANTOPRAZOLE SODIUM 40 MG VIAL IV PUSH SCH ×3 (00:12→20:23)
[2017-09-03] MEDS: SODIUM CHLOR 0.9% 1000 ML INJ 1,000 ML IV SCH ×5 (00:50→16:00)
[2017-09-03] MEDS: NOREPINEPHRINE 4 MG/D5W 250 ML IV PRN ×3 (00:51→18:47)
[2017-09-03 00:58] LABS: AUTOMATED NEUTROPHIL # 3.7 TH/MM3 (1.8-7.7); EOSINOPHIL % 0.2 % (0.0-4.0); HEMATOCRIT 31.1 % (39.0-51.0); HEMOGLOBIN 10.7 GM/DL (13.0-17.0); LYMPH % 5.6 % (9.0-44.0); LYMPHOCYTE # 0.2 TH/MM3 (1.0-4.8); MEAN CELL VOLUME 89.5 FL (80.0-100.0); MEAN CORPUSCULAR HEMOGLOBIN 30.7 PG (27.0-34.0); MEAN CORPUSCULAR HGB CONC 34.3 % (32.0-36.0); MEAN PLATELET VOLUME 7.7 FL (7.0-11.0); MONO % 6.8 % (0.0-8.0); MONOCYTE # 0.3 TH/MM3 (0-0.9); NEUT % 87.4 % (16.0-70.0); PLATELET COUNT 163 TH/MM3 (150-450); RED BLOOD COUNT 3.48 MIL/MM3 (4.50-5.90); RED CELL DISTRIBUTION WIDTH 18.6 % (11.6-17.2); WHITE BLOOD COUNT 4.3 TH/MM3 (4.0-11.0)
[2017-09-03 01:11] LABS: INTERNATIONAL NORMALIZED RATIO 2.4 RATIO; PROTHROMBIN TIME - PATIENT 23.9 SEC (9.8-11.6)
[2017-09-03 01:21] LABS: ALBUMIN 2.2 GM/DL (3.4-5.0); BICARBONATE 27.6 MEQ/L (21.0-32.0); CALCIUM 6.5 MG/DL (8.5-10.1); CALCIUM-PROTEIN CORRECTED 7.8 MG/DL (8.5-10.1); CREATININE 2.09 MG/DL (0.60-1.30); TOTAL BILIRUBIN ADULT 1.1 MG/DL (0.2-1.0); TOTAL PROTEIN 4.6 GM/DL (6.4-8.2)
[2017-09-03] MEDS ORDERED: metroNIDAZOLE 500 MG INJ 100 ML IV SCH (02:00)
[2017-09-03] MEDS ORDERED: MIDAZOLAM HCL 5 MG/ML VIAL (1 ML) ONE (02:12)
[2017-09-03] MEDS ORDERED: SUCCINYLCHOLINE CHLORIDE 200 MG/10 ML VIAL ONE (02:12)
[2017-09-03] MEDS ORDERED: ETOMIDATE 40 MG/20 ML VIAL ONE (02:12)
[2017-09-03] MEDS: MIDAZOLAM 100 MG/100 ML INJ 100 ML IV PRN ×2 (02:20→20:23)
[2017-09-03] MEDS: fentaNYL DRIP 250 ML IV PRN (02:20)
[2017-09-03 02:37] LABS: BANDS 18 % (0-6); CORRECTED NUCLEATED RBC 8 /100 WBC (0-0); DOHLE BODIES PRESENT (NONE SEEN); LYMPHOCYTES 8 % (9-44); METAMYELOCYTES 8 % (0-1); MONOCYTES 3 % (0-8); NEUTROPHIL # MANUAL DIFF 3.8 TH/MM3 (1.8-7.7); NUCLEATED RED BLOOD CELL 8 (0-0); POLYS (SEG NEUTROPHILS) 63 % (16-70)
--- NOTE | 2017-09-03 03:25 | RADRPT ---
EXAM DATE/TIME: 09/03/2017 02:37 [facility] COMPARISON: CHEST SINGLE AP, September 02, 2017, 19:40. INDICATIONS : Respiratory failure. MEDICAL HISTORY : Myocardial infarction. Congestive heart failure. Hypertension. SURGICAL HISTORY : Mitral valve replacement. ENCOUNTER: Subsequent ACUITY: 2 days PAIN SCORE: Non-responsive. LOCATION: Bilateral chest FINDINGS: A single AP semierect portable view of the chest was obtained and again demonstrates an endotracheal tube in place with the tip approximately 3 cm above the marian. The nasogastric tube is again seen co ursing through the esophagus into the stomach. The left subclavian transvenous pacer remains in place . The right subclavian central venous line remains in place. The heart size is mildly enlarged. There is increased perihilar and bibasilar opacities. More consolidative opacity remains on the left with obscuration of left hemidiaphragm. Both costophrenic angles are now blunted. The patient is again not ed to be status post median sternotomy and there is an artificial heart valve in place. CONCLUSION: 1. Interval increase in perihilar and bibasilar opacities most characteristic of pulmonary edema. 2. More consolidative opacity remains at the left lung base. Both costophrenic angles are not blunted. Armen Rodriguez MD on September 03, 2017 at 3:20 Board Certified Radiologist. This report was verified electronically.
[2017-09-03] MEDS: metroNIDAZOLE 500 MG INJ 100 ML IV SCH ×2 (04:00→12:00)
[2017-09-03 04:28] LABS: AUTOMATED NEUTROPHIL # 4.6 TH/MM3 (1.8-7.7); HEMATOCRIT 29.6 % (39.0-51.0); HEMOGLOBIN 10.2 GM/DL (13.0-17.0); LYMPHOCYTE # 0.3 TH/MM3 (1.0-4.8); MEAN CELL VOLUME 89.8 FL (80.0-100.0); MEAN CORPUSCULAR HGB CONC 34.5 % (32.0-36.0); MEAN PLATELET VOLUME 7.5 FL (7.0-11.0); MONO % 6.4 % (0.0-8.0); MONOCYTE # 0.3 TH/MM3 (0-0.9); NEUT % 88.6 % (16.0-70.0); PLATELET COUNT 151 TH/MM3 (150-450); RED CELL DISTRIBUTION WIDTH 18.3 % (11.6-17.2); WHITE BLOOD COUNT 5.2 TH/MM3 (4.0-11.0)
[2017-09-03 04:34] LABS: INTERNATIONAL NORMALIZED RATIO 2.5 RATIO; PROTHROMBIN TIME - PATIENT 24.9 SEC (9.8-11.6)
[2017-09-03 04:50] LABS: ALBUMIN 2.2 GM/DL (3.4-5.0); BICARBONATE 25.5 MEQ/L (21.0-32.0); CALCIUM 6.8 MG/DL (8.5-10.1); CALCIUM-PROTEIN CORRECTED 8.1 MG/DL (8.5-10.1); CREATININE 2.23 MG/DL (0.60-1.30); MAGNESIUM 1.7 MG/DL (1.5-2.5); PHOSPHORUS 4.8 MG/DL (2.5-4.9); TOTAL PROTEIN 4.7 GM/DL (6.4-8.2)
[2017-09-03 05:53] LABS: BANDS 21 % (0-6); CORRECTED NUCLEATED RBC 4 /100 WBC (0-0); LYMPHOCYTES 5 % (9-44); METAMYELOCYTES 8 % (0-1); MONOCYTES 4 % (0-8); NEUTROPHIL # MANUAL DIFF 4.7 TH/MM3 (1.8-7.7); NUCLEATED RED BLOOD CELL 4 (0-0); POLYS (SEG NEUTROPHILS) 62 % (16-70)
[2017-09-03] MEDS: PROPOFOL 1000 MG/100 ML IV PRN ×4 (06:00→20:19)
[2017-09-03] MEDS: DULoxetine HCl DR 30 MG CAP PO SCH (09:00)
[2017-09-03] MEDS: ARIPiprazole 5 MG TAB PO SCH ×2 (09:00→20:23)
[2017-09-03] MEDS: DOCUSATE SODIUM 50 MG/SENNA 8.6 MG TAB PO SCH ×2 (09:00→20:23)
[2017-09-03] MEDS: SODIUM CHLORIDE 0.9% FLUSH 10 ML FLUSH IV FLUSH SCH ×2 (09:00→20:23)
[2017-09-03] MEDS: ATENOLOL 50 MG TAB PO SCH (09:00)
[2017-09-03] MEDS: REMOVE OLD PATCH T-DERMAL SCH (09:00)
[2017-09-03] MEDS: NICOTINE 14 MG/24 HR PATCH T-DERMAL SCH (09:09)
--- NOTE | 2017-09-03 12:31 | HHI.CCPN ---
Subjective Remarks/Hospital Course 09/02: 41-year-old male who presented to [facility] on 09/01/2017 after having episodes of coffee-ground emesis. The patient has had some sternotomy pain and chronic back pain, and so he was told to take Mobic twice a day. He started getting nauseous. After this, he started having coffee ground emesis. He underwent endoscopy examination by Dr. Frazier when he became clinically unstable and his abdomen became rock hard. He was emergently transferred to operating room where he underwent Exploratory laparotomy, Jay patch of a 1 cm duodenal ulcer with duodenal ulcer repair, placement of drain at the duodenum, feeding jejunostomy tube placement and abdominal washout by Drs. Varma and Shirley. Postprocedure he was transferred to intensive care unit where he was weaned off the mechanical ventilation and extubated following CPAP trial, however his respiration became more labored, patient became hypoxemic and respiratory distress requiring reintubation and continue mechanical ventilation. 09/03: She remains intubated and sedated. Currently he is on norepinephrine for BP support at 8 mcg/minute. FiO2 down to 45%. Sedation currently achieved with midazolam, propofol and fentanyl infusions. Urine output is low, T-max 99.3. No family present at bedside. Morning chest x-ray reviewed, ET tube in place, right subclavian central line, pulmonary vascular congestion, possible retrocardiac infiltrate. Objective Vital Signs Date Time Temp Pulse Resp B/P (MAP) Pulse Ox O2 Delivery O2 Flow Rate FiO2 09/03/17 10:00 73 09/03/17 08:20 97 45 09/03/17 08:00 98.3 16 104/54 (71) 09/03/17 07:00 Mechanical Ventilator 09/03/17 01:50 4.00 Intake and Output 09/03/17 09/03/17 09/03/17 07:59 15:59 23:59 Intake Total 3200 ml Output Total 435 ml Balance 2765 ml Result Diagram: 09/03/17 0400 09/03/17 0400 Other Results ABG Test 09/02/17 17:30 09/02/17 18:10 09/02/17 21:36 09/03/17 00:38 Arterial Blood Carboxyhemoglobin 1.0 % 1.5 % 1.6 % 1.6 % Arterial Blood Methemoglobin 1.2 % 1.2 % 1.0 % 0.7 % Arterial Blood Oxygen Content 13.6 Vol % 10.9 Vol % L 14.1 Vol % 13.9 Vol % Arterial Blood Partial Pressure CO2 45 mmHg H 45 mmHg H 61 mmHg *H 38 mmHg Arterial Blood Partial Pressure O2 188 mmHg H 375 mmHg H 103 mmHg 101 mmHG Arterial Blood pH 7.08 *L 7.22 *L 7.22 *L 7.43 H Blood Gas Base Excess -15.1 mmol/L L -8.3 mmol/L L -2.7 mmol/L L 0.7 mmol/L Blood Gas HCO3 13 mmol/L *L 18 mmol/L L 24 mmol/L 25 mmol/L Blood Gas Hemoglobin 9.7 G/DL L 7.3 G/DL L 10.4 G/DL L 10.2 G/DL L Blood Gas Oxygen Saturation 96 % 97 % 95 % 96 % Oxygen Delivery Device VENTILATOR VENTILATOR VENT VENTILATOR Blood Gas Inspired Oxygen 50 % 50 % Blood Gas Ventilator Setting SEE COMMENT AC/18/600/PEEP5 Test 09/03/17 04:54 Arterial Blood Carboxyhemoglobin 1.4 % Arterial Blood Methemoglobin 0.9 % Arterial Blood Oxygen Content 16.7 Vol % Arterial Blood Partial Pressure CO2 43 mmHg H Arterial Blood Partial Pressure O2 160 mmHg H Arterial Blood pH 7.38 Blood Gas Base Excess 0.3 mmol/L Blood Gas HCO3 25 mmol/L Blood Gas Hemoglobin 12.0 G/DL Blood Gas Inspired Oxygen 60 % Blood Gas Oxygen Saturation 97 % Blood Gas Ventilator Setting A/C16/600/+5PEEP Oxygen Delivery Device VENTILATOR Laboratory Tests Test 09/02/17 17:30 09/02/17 18:10 09/02/17 21:36 09/03/17 00:38 Blood Gas Puncture Site ART LINE ART LINE RADHA ART LINE Blood Gas Patient Temperature 98.6 98.6 98.6 98.6 Blood Gas HCO3 13 mmol/L (22-26) 18 mmol/L (22-26) 24 mmol/L (22-26) 25 mmol/L (22-26) Blood Gas Base Excess -15.1 mmol/L (-2-2) -8.3 mmol/L (-2-2) -2.7 mmol/L (-2-2) 0.7 mmol/L (-2-2) Blood Gas Oxygen Saturation 96 % (90-100) 97 % (90-100) 95 % (90-100) 96 % ( 90-100) Arterial Blood pH 7.08 (7.380-7.420) 7.22 (7.380-7.420) 7.22 (7.380-7.420) 7.43 (7.380-7.420) Arterial Blood Partial Pressure CO2 45 mmHg (38-42) 45 mmHg (38-42) 61 mmHg (38-42) 38 mmHg (38-42) Arterial Blood Partial Pressure O2 188 mmHg (61-120) 375 mmHg (61-120) 103 mmHg (61-120) 101 mmHG (61-120) Arterial Blood Oxygen Content 13.6 Vol % (12.0-20.0) 10.9 Vol % (12.0-20.0) 14.1 Vol % (12.0-20.0) 13.9 Vol % (12.0-20.0) Arterial Blood Carboxyhemoglobin 1.0 % (0-4) 1.5 % (0-4) 1.6 % (0-4) 1.6 % (0-4) Arterial Blood Methemoglobin 1.2 % (0-2) 1.2 % (0-2) 1.0 % (0-2) 0.7 % (0-2) Blood Gas Hemoglobin 9.7 G/DL (12.0-16.0) 7.3 G/DL (12.0-16.0) 10.4 G/DL (12.0-16.0) 10.2 G/DL (12.0-16.0) Oxygen Delivery Device VENTILATOR VENTILATOR VENT VENTILATOR Blood Gas Ventilator Setting SEE COMMENT AC/18/600/PEEP5 Blood Gas Inspired Oxygen 50 % 50 % Test 09/03/17 04:54 Blood Gas Puncture Site RADHA Blood Gas Patient Temperature 98.6 Blood Gas HCO3 25 mmol/L (22-26) Blood Gas Base Excess 0.3 mmol/L (-2-2) Blood Gas Oxygen Saturation 97 % (90-100) Arterial Blood pH 7.38 (7.380-7.420) Arterial Blood Partial Pressure CO2 43 mmHg (38-42) Arterial Blood Partial Pressure O2 160 mmHg (61-120) Arterial Blood Oxygen Content 16.7 Vol % (12.0-20.0) Arterial Blood Carboxyhemoglobin 1.4 % (0-4) Arterial Blood Methemoglobin 0.9 % (0-2) Blood Gas Hemoglobin 12.0 G/DL (12.0-16.0) Oxygen Delivery Device VENTILATOR Blood Gas Ventilator Setting A/C16/600/+5PEEP Blood Gas Inspired Oxygen 60 % Imaging Last 24 hours Impressions Abdomen X-Ray 09/02/174 Signed Impressions: Service Date/Time: Saturday, September 02, 2017 17:47 - CONCLUSION: 1. Probable free intraperitoneal air. Further evaluation with abdomen and pelvic CT recommended. Joel Garcia MD Last 24 hours Impressions Abdomen X-Ray 09/02/171653 Signed Impressions: Service Date/Time: Saturday, September 02, 2017 17:47 - CONCLUSION: 1. Probable free intraperitoneal air. Further evaluation with abdomen and pelvic CT recommended. Joel Garcia MD Procedures None Objective Remarks General - middle-aged gentleman, intubated and sedated, ill-appearing HEENT - pupils equal, reactive, sclerae anicteric, neck supple, no nuchal rigidity, neck veins not distended, no carotid bruit, orally intubated CV - regular S1, S2, metallic valve closure click Chest - coarse breath sounds b/l, good air entry, no wheezes Abdomen - soft, non-distended, tender, BS decreased, dressing over the surgical site Skin - no rashes, no cyanosis Extremities - warm and well perfused, no edema, + peripheral pulses, no clubbing Neuro - intubated, sedated, pupils equal and reactive, grimaces to pain A/P Assessment and Plan 1. Septic shock 2. Perforated duodenal ulcer with peritonitis s/p exploratory laparotomy with abdominal washout, Jay patch repair and placement of feeding jejunostomy 3. Acute hypoxic respiratory failure 4. Upper GI bleed 5. Acute blood loss anemia secondary to above 6. History of mechanical mitral valve replacement ([place] bileaflet, for previous endocarditis) 7. History of hypertrophic cardiomyopathy, status post septal myomectomy 8. JOHNNY 1. Continue norepinephrine to keep map above 65. If pressor requirement increase will add vaso and will try to wean off norepinephrine to avoid tachycardia 2. Check CVP 3. Continue PRVC at the current ventilator settings. PIP is 26, patient is synchronized with the ventilator, no auto PEEP 4. Vent bundle and bronchodilators 5. Not ready for weaning today 6. Continue antibiotics with levofloxacin, metronidazole and fluconazole 7. PPI twice daily 8. Continue sedation with propofol, wean off midazolam and continue fentanyl drip for pain control 9. GI and surgery following 10. Coumadin will be on hold, concern is with his mechanical mitral valve, the possibility of obstruction. Restart heparin drip when okay with surgery and GI 11. DVT prophylaxis with SCDs and GI prophylaxis addressed above Patient remains critically ill with septic shock, acute abdomen with peritonitis , acute hypoxic respiratory failure, JOHNNY and he is at very high risk for further deterioration. I spent 32 minutes of critical care time excluding procedures managing ventilator, fluids, pressors, reviewing data, ordering investigations and discussing with nursing staff. No family present at bedside. Darien Agrawal MD Sep 03, 2017 12:31
--- NOTE | 2017-09-03 13:03 | PD.CARD.PN ---
Subjective Subjective Remarks Events yesterday noted, spoke to Dr. Frazier after the event Currently intubated and sedated Mother at bedside Objective Medications Current Medications Medications (Trade) Dose Ordered Sig/Khushboo Route Start Time Stop Time Status Last Admin (Protonix Inj) 40 mg Q12HR IV PUSH 09/01/17 09:30 09/03/17 09:08 (NS Flush) 2 ml UNSCH PRN IV FLUSH 09/01/17 09:30 (NS Flush) 2 ml BID IV FLUSH 09/01/17 21:00 09/03/17 09:00 (Tylenol) 650 mg Q4H PRN PO 09/01/17 09:30 (Zofran Inj) 4 mg Q6H PRN IVP 09/01/17 09:30 (Reglan Inj) 5 mg Q6H PRN IV PUSH 09/01/17 09:30 (Tylenol) 650 mg Q6H PRN PO 09/01/17 09:30 (Percocet 5-325 Mg) 1 tab Q6H PRN PO 09/01/17 09:30 09/02/17 13:55 (Percocet 10-325 Mg) 1 tab Q6H PRN PO 09/01/17 09:30 09/02/17 05:04 (Morphine Inj) 2 mg Q3H PRN IV PUSH 09/01/17 09:30 09/02/17 12:28 (Morphine Inj) 4 mg Q3H PRN IV PUSH 09/01/17 09:30 09/02/17 07:47 (Narcan Inj) 0.4 mg UNSCH PRN IV PUSH 09/01/17 09:30 (Ronda-Colace) 1 tab BID PO 09/01/17 21:00 09/02/17 07:48 (Milk Of Magnesia Liq) 30 ml Q12H PRN PO 09/01/17 09:30 (Senokot) 17.2 mg Q12H PRN PO 09/01/17 09:30 (Dulcolax Supp) 10 mg DAILY PRN RECTAL 09/01/17 09:30 (Lactulose Liq) 30 ml DAILY PRN PO 09/01/17 09:30 (Morphine Inj) 4 mg Q3H PRN IV PUSH 09/01/17 10:15 Miscellaneous Information 1 DAILY T-DERMAL 09/02/17 09:00 09/03/17 09:00 (Habitrol 14 Mg Patch.24 Hr) 1 patch DAILY T-DERMAL 09/02/17 09:00 09/03/17 09:09 (Abilify) 5 mg BID PO 09/01/17 21:00 09/02/17 07:47 (Cymbalta Dr) 30 mg DAILY PO 09/01/17 11:45 09/02/17 07:47 (KlonoPIN) 0.5 mg Q8HR PRN PO 09/01/17 20:45 09/02/17 12:46 (Betadine 5% Antisepsis Kit) 1 applic TREE EXPERT PRN EACH NARE 09/02/17 14:45 09/05/17 14:44 Metronidazole 100 ml @ 100 mls/hr Q8H IV 09/02/17 20:00 09/03/17 12:00 Miscellaneous Information ALL NURSING DEPARTME... UNSCH PRN .XX 09/02/17 19:45 09/03/17 19:44 Sodium Chloride 1,000 ml @ 100 mls/hr Q10H IV 09/02/17 20:00 09/03/17 05:20 Fluconazole/ Sodium Chloride 200 ml @ 100 mls/hr Q24H IV 09/03/17 18:00 Levofloxacin/ Dextrose 150 ml @ 100 mls/hr Q24H IV 09/03/17 18:00 Propofol 100 ml @ 1.98 mls/hr TITRATE PRN IV 09/02/17 20:30 09/03/17 12:29 Norepinephrine Bitartrate 250 ml @ 7.5 mls/hr TITRATE PRN IV 09/02/17 20:30 09/03/17 12:30 Fentanyl Citrate 250 ml @ 5 mls/hr TITRATE PRN IV 09/03/17 01:00 09/03/17 02:20 Midazolam HCl 100 ml @ 2 mls/hr TITRATE PRN IV 09/03/17 01:00 09/03/17 02:20 Vital Signs / I&O Vital Signs Date Time Temp Pulse Resp B/P (MAP) Pulse Ox O2 Delivery O2 Flow Rate FiO2 09/03/17 12:30 74 114/52 09/03/17 12:00 98.1 70 16 96 116/60 (78) 09/03/17 12:00 45 3/24/18 12:00 70 09/03/17 10:00 73 09/03/17 08:20 97 45 09/03/17 08:00 98.3 74 16 96 104/54 (71) 09/03/17 08:00 60 09/03/17 08:00 75 09/03/17 07:00 Mechanical Ventilator 60 09/03/17 06:04 97 50 09/03/17 04:00 98.1 92 16 99/58 (72) 96 99/58 (72) 09/03/17 02:15 94 60 09/03/17 02:15 60 09/03/17 01:55 89 Non-Rebreather 09/03/17 01:50 83 Nasal Cannula 4.00 09/03/17 01:45 92 Nasal Cannula 6 09/03/17 01:30 50 09/03/17 00:51 90 90/50 09/02/17 23:45 50 09/02/17 23:00 113 09/02/17 22:00 99.3 112 12 142/88 (106) 95 137/89 (105) 09/02/17 22:00 50 09/02/17 22:00 113 09/02/17 21:30 93 50 09/02/17 21:29 50 09/02/17 21:15 117 14 122/68 (86) 99 Mechanical Ventilator 50 09/02/17 21:00 99 14 127/69 (88) 99 Mechanical Ventilator 50 09/02/17 20:45 111 14 142/74 (96) 99 Mechanical Ventilator 50 09/02/17 20:30 102 16 102/55 (71) 99 Mechanical Ventilator 50 09/02/17 20:22 98.9 107 12 113/60 98 09/02/17 20:15 107 16 149/75 (99) 95 Mechanical Ventilator 50 09/02/17 20:00 100 12 102/57 (72) 99 Mechanical Ventilator 50 09/02/17 19:45 89 12 135/69 (91) 99 Mechanical Ventilator 50 09/02/17 19:30 78 12 89/46 (60) 99 Mechanical Ventilator 50 09/02/17 19:23 70 90/60 09/02/17 19:20 98.1 75 15 99 Mechanical Ventilator 50 93/52 (66) Manual Cuff/Palpation 09/02/17 19:20 50 3/23/18 14:30 Nasal Cannula 2 I/O 09/02/17 09/02/17 09/02/17 09/03/17 09/03/17 09/03/17 07:00 15:00 23:00 07:00 15:00 23:00 Intake Total 1580 ml 716 ml 3100 ml 3200 ml Output Total 800 ml 225 ml 435 ml Balance 780 ml 716 ml 2875 ml 2765 ml Intake Oral 580 ml 0 ml IV Total 1000 ml 3200 ml Packed Cells 800 ml FFP 681 ml Blood Product IV Normal Saline Flush 35 ml Other 2300 ml Output Urine Total 800 ml 100 ml 375 ml Drainage Total 75 ml 60 ml Estimated Blood Loss 50 ml Other 0 ml # Voids 2 # Bowel Movements 0 Physical Exam GENERAL: Intubated and sedated SKIN: Warm and dry. HEAD: Atraumatic. Normocephalic. EYES: Pupils equal and round. No scleral icterus. No injection or drainage. ENT: No nasal bleeding or discharge. Mucous membranes pink and moist. NECK: Trachea midline. No JVD. CARDIOVASCULAR: Regular rate and rhythm. 1/6 creascendo-decrescendo murmur to the RSB, mechanical click noted RESPIRATORY: No accessory muscle use. Clear to auscultation. Breath sounds equal bilaterally. GASTROINTESTINAL: Abdomen soft, non-tender, nondistended. Hepatic and splenic margins not palpable. MUSCULOSKELETAL: Extremities without clubbing, cyanosis, or edema. No obvious deformities. NEUROLOGICAL: Intubated and sedated Laboratory Laboratory Tests Test 09/02/17 17:30 09/02/17 18:10 09/02/17 21:36 09/03/17 00:27 Blood Gas Puncture Site ART LINE ART LINE RADHA Blood Gas Patient Temperature 98.6 98.6 98.6 Blood Gas HCO3 13 mmol/L 18 mmol/L 24 mmol/L Blood Gas Base Excess -15.1 mmol/L -8.3 mmol/L -2.7 mmol/L Blood Gas Oxygen Saturation 96 % 97 % 95 % Arterial Blood pH 7.08 7.22 7.22 Arterial Blood Partial Pressure CO2 45 mmHg 45 mmHg 61 mmHg Arterial Blood Partial Pressure O2 188 mmHg 375 mmHg 103 mmHg Arterial Blood Oxygen Content 13.6 Vol % 10.9 Vol % 14.1 Vol % Arterial Blood Carboxyhemoglobin 1.0 % 1.5 % 1.6 % Arterial Blood Methemoglobin 1.2 % 1.2 % 1.0 % Blood Gas Hemoglobin 9.7 G/DL 7.3 G/DL 10.4 G/DL Oxygen Delivery Device VENTILATOR VENTILATOR VENT Blood Gas Ventilator Setting SEE COMMENT Blood Gas Inspired Oxygen 50 % White Blood Count 4.3 TH/MM3 Red Blood Count 3.48 MIL/MM3 Hemoglobin 10.7 GM/DL Hematocrit 31.1 % Mean Corpuscular Volume 89.5 FL Mean Corpuscular Hemoglobin 30.7 PG Mean Corpuscular Hemoglobin Concent 34.3 % Red Cell Distribution Width 18.6 % Platelet Count 163 TH/MM3 Mean Platelet Volume 7.7 FL Neutrophils (%) (Auto) 87.4 % Lymphocytes (%) (Auto) 5.6 % Monocytes (%) (Auto) 6.8 % Eosinophils (%) (Auto) 0.2 % Basophils (%) (Auto) 0.0 % Neutrophils # (Auto) 3.7 TH/MM3 Lymphocytes # (Auto) 0.2 TH/MM3 Monocytes # (Auto) 0.3 TH/MM3 Eosinophils # (Auto) 0.0 TH/MM3 Basophils # (Auto) 0.0 TH/MM3 CBC Comment AUTO DIFF Differential Total Cells Counted 100 Neutrophils % (Manual) 63 % Band Neutrophils % 18 % Lymphocytes % 8 % Monocytes % 3 % Neutrophils # (Manual) 3.8 TH/MM3 Metamyelocytes 8 % Nucleated Red Blood Cells 8 /100 WBC Differential Comment FINAL DIFF MANUAL Dohle Bodies PRESENT Platelet Estimate NORMAL Platelet Morphology Comment NORMAL Basophilic Stippling FAINT Prothrombin Time 23.9 SEC Prothromb Time International Ratio 2.4 RATIO Blood Urea Nitrogen 48 MG/DL Creatinine 2.09 MG/DL Random Glucose 86 MG/DL Total Protein 4.6 GM/DL Albumin 2.2 GM/DL Calcium Level 6.5 MG/DL Alkaline Phosphatase 44 U/L Aspartate Amino Transf (AST/SGOT) 124 U/L Alanine Aminotransferase (ALT/SGPT) 53 U/L Total Bilirubin 1.1 MG/DL Sodium Level 141 MEQ/L Potassium Level 3.8 MEQ/L Chloride Level 102 MEQ/L Carbon Dioxide Level 27.6 MEQ/L Anion Gap 11 MEQ/L Estimat Glomerular Filtration Rate 36 ML/MIN Protein Corrected Calcium 7.8 MG/DL Troponin I 0.27 NG/ML Test 09/03/17 00:38 09/03/17 04:00 09/03/17 04:54 Blood Gas Puncture Site ART LINE RADHA Blood Gas Patient Temperature 98.6 98.6 Blood Gas HCO3 25 mmol/L 25 mmol/L Blood Gas Base Excess 0.7 mmol/L 0.3 mmol/L Blood Gas Oxygen Saturation 96 % 97 % Arterial Blood pH 7.43 7.38 Arterial Blood Partial Pressure CO2 38 mmHg 43 mmHg Arterial Blood Partial Pressure O2 101 mmHG 160 mmHg Arterial Blood Oxygen Content 13.9 Vol % 16.7 Vol % Arterial Blood Carboxyhemoglobin 1.6 % 1.4 % Arterial Blood Methemoglobin 0.7 % 0.9 % Blood Gas Hemoglobin 10.2 G/DL 12.0 G/DL Oxygen Delivery Device VENTILATOR VENTILATOR Blood Gas Ventilator Setting AC/18/600/PEEP5 A/C16/600/+5PEEP Blood Gas Inspired Oxygen 50 % 60 % White Blood Count 5.2 TH/MM3 Red Blood Count 3.30 MIL/MM3 Hemoglobin 10.2 GM/DL Hematocrit 29.6 % Mean Corpuscular Volume 89.8 FL Mean Corpuscular Hemoglobin 31.0 PG Mean Corpuscular Hemoglobin Concent 34.5 % Red Cell Distribution Width 18.3 % Platelet Count 151 TH/MM3 Mean Platelet Volume 7.5 FL Neutrophils (%) (Auto) 88.6 % Lymphocytes (%) (Auto) 5.0 % Monocytes (%) (Auto) 6.4 % Eosinophils (%) (Auto) 0.0 % Basophils (%) (Auto) 0.0 % Neutrophils # (Auto) 4.6 TH/MM3 Lymphocytes # (Auto) 0.3 TH/MM3 Monocytes # (Auto) 0.3 TH/MM3 Eosinophils # (Auto) 0.0 TH/MM3 Basophils # (Auto) 0.0 TH/MM3 CBC Comment AUTO DIFF Differential Total Cells Counted 100 Neutrophils % (Manual) 62 % Band Neutrophils % 21 % Lymphocytes % 5 % Monocytes % 4 % Neutrophils # (Manual) 4.7 TH/MM3 Metamyelocytes 8 % Nucleated Red Blood Cells 4 /100 WBC Differential Comment FINAL DIFF MANUAL Platelet Estimate LOW Platelet Morphology Comment NORMAL Prothrombin Time 24.9 SEC Prothromb Time International Ratio 2.5 RATIO Blood Urea Nitrogen 52 MG/DL Creatinine 2.23 MG/DL Random Glucose 90 MG/DL Total Protein 4.7 GM/DL Albumin 2.2 GM/DL Calcium Level 6.8 MG/DL Phosphorus Level 4.8 MG/DL Magnesium Level 1.7 MG/DL Alkaline Phosphatase 45 U/L Aspartate Amino Transf (AST/SGOT) 158 U/L Alanine Aminotransferase (ALT/SGPT) 57 U/L Total Bilirubin 1.0 MG/DL Sodium Level 138 MEQ/L Potassium Level 3.9 MEQ/L Chloride Level 102 MEQ/L Carbon Dioxide Level 25.5 MEQ/L Anion Gap 11 MEQ/L Estimat Glomerular Filtration Rate 33 ML/MIN Protein Corrected Calcium 8.1 MG/DL Imaging Last 24 hours Impressions Chest X-Ray 09/03/17 0000 Signed Impressions: Service Date/Time: Sunday, September 03, 2017 02:37 - CONCLUSION: 1. Interval increase in perihilar and bibasilar opacities most characteristic of pulmonary edema. 2. More consolidative opacity remains at the left lung base. Both costophrenic angles are not blunted. Armen Rodriguez MD Abdomen X-Ray 09/02/17 1654 Signed Impressions: Service Date/Time: Saturday, September 02, 2017 17:47 - CONCLUSION: 1. Probable free intraperitoneal air. Further evaluation with abdomen and pelvic CT recommended. Joel Garcia MD Assessment and Plan Problem List: (1) Familial hypertrophic cardiomyopathy ICD Codes: I42.2 - Other hypertrophic cardiomyopathy (2) H/O hypertrophic cardiomyopathy ICD Codes: Z86.79 - Personal history of other diseases of the circulatory system (3) H/O mitral valve replacement with mechanical valve ICD Codes: Z95.2 - Presence of prosthetic heart valve (4) GI bleed ICD Codes: K92.2 - Gastrointestinal hemorrhage, unspecified Status: Acute (5) S/P MVR (mitral valve replacement) ICD Codes: Z95.4 - S/P MVR (mitral valve replacement) Status: Acute Permanent Comment: Need prophyllaxis - Due to endocarditis Last Edited By: Ozzy Edwards on May 26, 2014 13:06 (6) Congestive heart failure ICD Codes: I50.9 - Congestive heart failure Status: Acute (7) History of endocarditis ICD Codes: Z86.79 - History of endocarditis Status: Acute (8) AICD (automatic cardioverter/defibrillator) present ICD Codes: Z95.810 - AICD (automatic cardioverter/defibrillator) present Status: Acute Assessment and Plan 1) EGD with perforation s/p Jay patch 2) Mechanical mitral valve Would restart heparin as soon as it is safe per GI/Surgery 3) Hx HOCM Previous septal myectomy Mother unsure of ejection fraction or gradient post surgery Plan to repeat echo to help with taking care of him from a hemodynamic standpoint If gradient elevated, would change Levophed to Sukhdeep 4) GI Bleed Most likely secondary to NSAID use 5) Audio Visual Tech, 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 Problem Qualifiers (1) GI bleed: Qualified Codes: K29.71 - Gastritis, unspecified, with bleeding Angelo Cabrales DO Sep 03, 2017 13:03
[2017-09-03] MEDS: PIPERACIL-TAZO 3.375 GM PREMIX 50 ML IV SCH ×2 (13:46→20:19)
--- NOTE | 2017-09-03 15:16 | ECHRPT ---
Indication: chf CONCLUSIONS The left ventricular systolic function is hyperdynamic with an estimated ejection fraction in the ra nge of 65- 70%. There is assymetric septal hypertrophy. There are findings consistent with hypertrophic cardiomyopathy, no significant LVOT gradient. There is a mechanical mitral valve. Aortic valve sclerosis is present. [id number] aortic valve regurgitation. Trivial pulmonary valve regurgitation. BP: 104 / 54 HR: 71 Rhythm: Sinus MEASUREMENTS (Male / Female) Normal Values Technical Quality:Good 2D ECHO LV Diastolic Diameter PLAX 3.4 cm 4.2 - 5.9 / 3.9 - 5.3 cm LV Systolic Diameter PLAX 1.7 cm IVS Diastolic Thickness 2.8 cm 0.6 - 1.0 / 0.6 - 0.9 cm LVPW Diastolic Thickness 1.7 cm 0.6 - 1.0 / 0.6 - 0.9 cm LV Relative Wall Thickness 1.3 RV Internal Dim ED PLAX 2.8 cm LVOT Diameter 1.6 cm M-MODE Aortic Root Diameter MM 3.1 cm LA Systolic Diameter MM 4.0 cm LA Ao Ratio MM 1.3 AV Cusp Separation MM 1.8 cm DOPPLER AV Peak Velocity 251.5 cm/s AV Peak Gradient 25.3 mmHg AV Mean Gradient 13.5 mmHg AV Velocity Time Integral 49.6 cm AI Peak Velocity 300.0 cm/s AI Peak Gradient 36.0 mmHg AI Pressure Half Time 390.5 ms LVOT Peak Velocity 187.0 cm/s LVOT Peak Gradient 14.0 mmHg LVOT Velocity Time Integral 36.1 cm LVOT Cardiac Index 2751.1 cm/minm AV Area Cont Eq vti 1.5 cm AV Area Cont Eq pk 1.5 cm MV Peak Velocity 171.0 cm/s MV Peak Gradient 11.7 mmHg MV Mean Velocity 118.0 cm/s MV Mean Gradient 6.0 mmHg MV Area PHT 3.3 cm Mitral E Point Velocity 144.0 cm/s Mitral A Point Velocity 124.0 cm/s Mitral E to A Ratio 1.2 LV E' Septal Velocity 3.6 cm/s Mitral E to LV E' Septal Ratio 39.9 PV Peak Velocity 149.0 cm/s PV Peak Gradient 8.9 mmHg FINDINGS LEFT VENTRICLE The left ventricular systolic function is hyperdynamic with an estimated ejection fraction in the ra nge of 65- 70%. There is assymetric septal hypertrophy. There are findings consistent with hypertrophic cardiomyopathy. RIGHT VENTRICLE Normal right ventricular size and systolic function. LEFT ATRIUM The left atrial size is normal. RIGHT ATRIUM The right atrial size is normal. ATRIAL SEPTUM Normal atrial septal thickness without atrial level shunting by limited color doppler interrogation. AORTA The aortic root and proximal ascending aorta are normal in size on limited imaging. MITRAL VALVE There is a mechanical mitral valve. AORTIC VALVE Trileaflet aortic valve. Aortic valve sclerosis is present. [id number] aortic valve regurgitation. TRICUSPID VALVE Structurally normal tricuspid valve. No tricuspid valve stenosis or regurgitation. PULMONARY VALVE Trivial pulmonary valve regurgitation. VESSELS The inferior vena cava is normal in size. Sandro Oswald MD (Electronically Signed) Final Date:03 September 2017 15:14
--- NOTE | 2017-09-03 15:34 | HHI.PR ---
Subjective Subjective Notes Patient ventilated and sedated. On low-dose Levophed being weaned. Evaluated with bedside RN. NG tube with only about 300-400 of dark bilious fluid. Urine output decent Objective Vitals/I&O Vital Signs Date Time Temp Pulse Resp B/P (MAP) Pulse Ox O2 Delivery O2 Flow Rate FiO2 09/03/17 15:27 96 45 09/03/17 14:00 69 09/03/17 12:30 114/52 09/03/17 12:00 98.1 16 09/03/17 07:00 Mechanical Ventilator 09/03/17 01:50 4.00 Labs Laboratory Tests Test 09/02/17 17:30 09/02/17 18:10 09/02/17 21:36 09/03/17 00:27 Blood Gas Puncture Site ART LINE ART LINE RADHA Blood Gas Patient Temperature 98.6 98.6 98.6 Blood Gas HCO3 13 18 24 Blood Gas Base Excess -15.1 -8.3 -2.7 Blood Gas Oxygen Saturation 96 97 95 Arterial Blood pH 7.08 7.22 7.22 Arterial Blood Partial Pressure CO2 45 45 61 Arterial Blood Partial Pressure O2 188 375 103 Arterial Blood Oxygen Content 13.6 10.9 14.1 Arterial Blood Carboxyhemoglobin 1.0 1.5 1.6 Arterial Blood Methemoglobin 1.2 1.2 1.0 Blood Gas Hemoglobin 9.7 7.3 10.4 Oxygen Delivery Device VENTILATOR VENTILATOR VENT Blood Gas Ventilator Setting SEE COMMENT Blood Gas Inspired Oxygen 50 White Blood Count 4.3 Red Blood Count 3.48 Hemoglobin 10.7 Hematocrit 31.1 Mean Corpuscular Volume 89.5 Mean Corpuscular Hemoglobin 30.7 Mean Corpuscular Hemoglobin Concent 34.3 Red Cell Distribution Width 18.6 Platelet Count 163 Mean Platelet Volume 7.7 Neutrophils (%) (Auto) 87.4 Lymphocytes (%) (Auto) 5.6 Monocytes (%) (Auto) 6.8 Eosinophils (%) (Auto) 0.2 Basophils (%) (Auto) 0.0 Neutrophils # (Auto) 3.7 Lymphocytes # (Auto) 0.2 Monocytes # (Auto) 0.3 Eosinophils # (Auto) 0.0 Basophils # (Auto) 0.0 CBC Comment AUTO DIFF Differential Total Cells Counted 100 Neutrophils % (Manual) 63 Band Neutrophils % 18 Lymphocytes % 8 Monocytes % 3 Neutrophils # (Manual) 3.8 Metamyelocytes 8 Nucleated Red Blood Cells 8 Differential Comment FINAL DIFF MANUAL Dohle Bodies PRESENT Platelet Estimate NORMAL Platelet Morphology Comment NORMAL Basophilic Stippling FAINT Prothrombin Time 23.9 Prothromb Time International Ratio 2.4 Blood Urea Nitrogen 48 Creatinine 2.09 Random Glucose 86 Total Protein 4.6 Albumin 2.2 Calcium Level 6.5 Alkaline Phosphatase 44 Aspartate Amino Transf (AST/SGOT) 124 Alanine Aminotransferase (ALT/SGPT) 53 Total Bilirubin 1.1 Sodium Level 141 Potassium Level 3.8 Chloride Level 102 Carbon Dioxide Level 27.6 Anion Gap 11 Estimat Glomerular Filtration Rate 36 Protein Corrected Calcium 7.8 Troponin I 0.27 Test 09/03/17 00:38 09/03/17 04:00 09/03/17 04:54 Blood Gas Puncture Site ART LINE RADHA Blood Gas Patient Temperature 98.6 98.6 Blood Gas HCO3 25 25 Blood Gas Base Excess 0.7 0.3 Blood Gas Oxygen Saturation 96 97 Arterial Blood pH 7.43 7.38 Arterial Blood Partial Pressure CO2 38 43 Arterial Blood Partial Pressure O2 101 160 Arterial Blood Oxygen Content 13.9 16.7 Arterial Blood Carboxyhemoglobin 1.6 1.4 Arterial Blood Methemoglobin 0.7 0.9 Blood Gas Hemoglobin 10.2 12.0 Oxygen Delivery Device VENTILATOR VENTILATOR Blood Gas Ventilator Setting AC/18/600/PEEP5 A/C16/600/+5PEEP Blood Gas Inspired Oxygen 50 60 White Blood Count 5.2 Red Blood Count 3.30 Hemoglobin 10.2 Hematocrit 29.6 Mean Corpuscular Volume 89.8 Mean Corpuscular Hemoglobin 31.0 Mean Corpuscular Hemoglobin Concent 34.5 Red Cell Distribution Width 18.3 Platelet Count 151 Mean Platelet Volume 7.5 Neutrophils (%) (Auto) 88.6 Lymphocytes (%) (Auto) 5.0 Monocytes (%) (Auto) 6.4 Eosinophils (%) (Auto) 0.0 Basophils (%) (Auto) 0.0 Neutrophils # (Auto) 4.6 Lymphocytes # (Auto) 0.3 Monocytes # (Auto) 0.3 Eosinophils # (Auto) 0.0 Basophils # (Auto) 0.0 CBC Comment AUTO DIFF Differential Total Cells Counted 100 Neutrophils % (Manual) 62 Band Neutrophils % 21 Lymphocytes % 5 Monocytes % 4 Neutrophils # (Manual) 4.7 Metamyelocytes 8 Nucleated Red Blood Cells 4 Differential Comment FINAL DIFF MANUAL Platelet Estimate LOW Platelet Morphology Comment NORMAL Prothrombin Time 24.9 Prothromb Time International Ratio 2.5 Blood Urea Nitrogen 52 Creatinine 2.23 Random Glucose 90 Total Protein 4.7 Albumin 2.2 Calcium Level 6.8 Phosphorus Level 4.8 Magnesium Level 1.7 Alkaline Phosphatase 45 Aspartate Amino Transf (AST/SGOT) 158 Alanine Aminotransferase (ALT/SGPT) 57 Total Bilirubin 1.0 Sodium Level 138 Potassium Level 3.9 Chloride Level 102 Carbon Dioxide Level 25.5 Anion Gap 11 Estimat Glomerular Filtration Rate 33 Protein Corrected Calcium 8.1 Cardiovascular: Other Lungs: Clear (Loud clicking noise) Abdomen: Non-distended, Other (Dressing dry and intact. Drainage clear yellow serous. J-tube site clean and dry.) Extremities: Other (30 soles of feet.) A/P Assessment and Plan Postop exploratory lap repair perforated duodenal ulcer placement of feeding tube in jejunum. Improved weaning levo fed. Discussed discussed with bedside RN and restarting blood thinning medications. Recommend start 36-48 hours after surgery. Ordered Jevity 1.5 at 10 cc an hour through the feeding tube. Adria Nuno MD Sep 03, 2017 15:34
--- NOTE | 2017-09-03 16:29 | HHI.GIFU ---
Subjective Remarks Pt remains sedated and intubated J tube clamped NG to LIWS with green colored drainage RAYMOND drain to RUQ with small amount of yellow drainage Abdominal binder in place Per RN has not had BM (Thu Canseco) Objective Vitals I&O Vital Signs Date Time Temp Pulse Resp B/P (MAP) Pulse Ox O2 Delivery O2 Flow Rate FiO2 09/03/17 15:27 96 45 09/03/17 14:00 69 09/03/17 12:30 74 114/52 09/03/17 12:00 98.1 70 16 96 116/60 (78) 09/03/17 12:00 45 09/03/17 12:00 70 09/03/17 10:00 73 09/03/17 08:20 97 45 09/03/17 08:00 98.3 74 16 96 104/54 (71) 09/03/17 08:00 60 09/03/17 08:00 75 09/03/17 07:00 Mechanical Ventilator 60 09/03/17 06:04 97 50 09/03/17 04:00 98.1 92 16 99/58 (72) 96 99/58 (72) 09/03/17 02:15 94 60 09/03/17 02:15 60 09/03/17 01:55 89 Non-Rebreather 09/03/17 01:50 83 Nasal Cannula 4.00 09/03/17 01:45 92 Nasal Cannula 6 09/03/17 01:30 50 09/03/17 00:51 90 90/50 09/02/17 23:45 50 09/02/17 23:00 113 09/02/17 22:00 99.3 112 12 142/88 (106) 95 137/89 (105) 09/02/17 22:00 50 09/02/17 22:00 113 09/02/17 21:30 93 50 09/02/17 21:29 50 09/02/17 21:15 117 14 122/68 (86) 99 Mechanical Ventilator 50 09/02/17 21:00 99 14 127/69 (88) 99 Mechanical Ventilator 50 09/02/17 20:45 111 14 142/74 (96) 99 Mechanical Ventilator 50 09/02/17 20:30 102 16 102/55 (71) 99 Mechanical Ventilator 50 09/02/17 20:22 98.9 107 12 113/60 98 09/02/17 20:15 107 16 149/75 (99) 95 Mechanical Ventilator 50 09/02/17 20:00 100 12 102/57 (72) 99 Mechanical Ventilator 50 09/02/17 19:45 89 12 135/69 (91) 99 Mechanical Ventilator 50 09/02/17 19:30 78 12 89/46 (60) 99 Mechanical Ventilator 50 09/02/17 19:23 70 90/60 09/02/17 19:20 98.1 75 15 99 Mechanical Ventilator 50 93/52 (66) Manual Cuff/Palpation 09/02/17 19:20 50 I/O 09/02/17 09/02/17 09/02/17 09/03/17 09/03/17 09/03/17 07:00 15:00 23:00 07:00 15:00 23:00 Intake Total 1580 ml 716 ml 3100 ml 3200 ml 550 ml Output Total 800 ml 225 ml 435 ml Balance 780 ml 716 ml 2875 ml 2765 ml 550 ml Intake Oral 580 ml 0 ml IV Total 1000 ml 3200 ml 550 ml Packed Cells 800 ml FFP 681 ml Blood Product IV Normal Saline Flush 35 ml Other 2300 ml Output Urine Total 800 ml 100 ml 375 ml Drainage Total 75 ml 60 ml Estimated Blood Loss 50 ml Other 0 ml # Voids 2 # Bowel Movements 0 Laboratory Laboratory Tests Test 09/02/17 17:30 09/02/17 18:10 09/02/17 21:36 09/03/17 00:27 Blood Gas Puncture Site ART LINE ART LINE RADHA Blood Gas Patient Temperature 98.6 98.6 98.6 Blood Gas HCO3 13 18 24 Blood Gas Base Excess -15.1 -8.3 -2.7 Blood Gas Oxygen Saturation 96 97 95 Arterial Blood pH 7.08 7.22 7.22 Arterial Blood Partial Pressure CO2 45 45 61 Arterial Blood Partial Pressure O2 188 375 103 Arterial Blood Oxygen Content 13.6 10.9 14.1 Arterial Blood Carboxyhemoglobin 1.0 1.5 1.6 Arterial Blood Methemoglobin 1.2 1.2 1.0 Blood Gas Hemoglobin 9.7 7.3 10.4 Oxygen Delivery Device VENTILATOR VENTILATOR VENT Blood Gas Ventilator Setting SEE COMMENT Blood Gas Inspired Oxygen 50 White Blood Count 4.3 Red Blood Count 3.48 Hemoglobin 10.7 Hematocrit 31.1 Mean Corpuscular Volume 89.5 Mean Corpuscular Hemoglobin 30.7 Mean Corpuscular Hemoglobin Concent 34.3 Red Cell Distribution Width 18.6 Platelet Count 163 Mean Platelet Volume 7.7 Neutrophils (%) (Auto) 87.4 Lymphocytes (%) (Auto) 5.6 Monocytes (%) (Auto) 6.8 Eosinophils (%) (Auto) 0.2 Basophils (%) (Auto) 0.0 Neutrophils # (Auto) 3.7 Lymphocytes # (Auto) 0.2 Monocytes # (Auto) 0.3 Eosinophils # (Auto) 0.0 Basophils # (Auto) 0.0 CBC Comment AUTO DIFF Differential Total Cells Counted 100 Neutrophils % (Manual) 63 Band Neutrophils % 18 Lymphocytes % 8 Monocytes % 3 Neutrophils # (Manual) 3.8 Metamyelocytes 8 Nucleated Red Blood Cells 8 Differential Comment FINAL DIFF MANUAL Dohle Bodies PRESENT Platelet Estimate NORMAL Platelet Morphology Comment NORMAL Basophilic Stippling FAINT Prothrombin Time 23.9 Prothromb Time International Ratio 2.4 Blood Urea Nitrogen 48 Creatinine 2.09 Random Glucose 86 Total Protein 4.6 Albumin 2.2 Calcium Level 6.5 Alkaline Phosphatase 44 Aspartate Amino Transf (AST/SGOT) 124 Alanine Aminotransferase (ALT/SGPT) 53 Total Bilirubin 1.1 Sodium Level 141 Potassium Level 3.8 Chloride Level 102 Carbon Dioxide Level 27.6 Anion Gap 11 Estimat Glomerular Filtration Rate 36 Protein Corrected Calcium 7.8 Troponin I 0.27 Test 09/03/17 00:38 09/03/17 04:00 09/03/17 04:54 Blood Gas Puncture Site ART LINE RADHA Blood Gas Patient Temperature 98.6 98.6 Blood Gas HCO3 25 25 Blood Gas Base Excess 0.7 0.3 Blood Gas Oxygen Saturation 96 97 Arterial Blood pH 7.43 7.38 Arterial Blood Partial Pressure CO2 38 43 Arterial Blood Partial Pressure O2 101 160 Arterial Blood Oxygen Content 13.9 16.7 Arterial Blood Carboxyhemoglobin 1.6 1.4 Arterial Blood Methemoglobin 0.7 0.9 Blood Gas Hemoglobin 10.2 12.0 Oxygen Delivery Device VENTILATOR VENTILATOR Blood Gas Ventilator Setting AC/18/600/PEEP5 A/C16/600/+5PEEP Blood Gas Inspired Oxygen 50 60 White Blood Count 5.2 Red Blood Count 3.30 Hemoglobin 10.2 Hematocrit 29.6 Mean Corpuscular Volume 89.8 Mean Corpuscular Hemoglobin 31.0 Mean Corpuscular Hemoglobin Concent 34.5 Red Cell Distribution Width 18.3 Platelet Count 151 Mean Platelet Volume 7.5 Neutrophils (%) (Auto) 88.6 Lymphocytes (%) (Auto) 5.0 Monocytes (%) (Auto) 6.4 Eosinophils (%) (Auto) 0.0 Basophils (%) (Auto) 0.0 Neutrophils # (Auto) 4.6 Lymphocytes # (Auto) 0.3 Monocytes # (Auto) 0.3 Eosinophils # (Auto) 0.0 Basophils # (Auto) 0.0 CBC Comment AUTO DIFF Differential Total Cells Counted 100 Neutrophils % (Manual) 62 Band Neutrophils % 21 Lymphocytes % 5 Monocytes % 4 Neutrophils # (Manual) 4.7 Metamyelocytes 8 Nucleated Red Blood Cells 4 Differential Comment FINAL DIFF MANUAL Platelet Estimate LOW Platelet Morphology Comment NORMAL Prothrombin Time 24.9 Prothromb Time International Ratio 2.5 Blood Urea Nitrogen 52 Creatinine 2.23 Random Glucose 90 Total Protein 4.7 Albumin 2.2 Calcium Level 6.8 Phosphorus Level 4.8 Magnesium Level 1.7 Alkaline Phosphatase 45 Aspartate Amino Transf (AST/SGOT) 158 Alanine Aminotransferase (ALT/SGPT) 57 Total Bilirubin 1.0 Sodium Level 138 Potassium Level 3.9 Chloride Level 102 Carbon Dioxide Level 25.5 Anion Gap 11 Estimat Glomerular Filtration Rate 33 Protein Corrected Calcium 8.1 Imaging Last Impressions Chest X-Ray 09/03/17 0000 Signed Impressions: Service Date/Time: Sunday, September 03, 2017 02:37 - CONCLUSION: 1. Interval increase in perihilar and bibasilar opacities most characteristic of pulmonary edema. 2. More consolidative opacity remains at the left lung base. Both costophrenic angles are not blunted. Armen Rodriguez MD Abdomen X-Ray 09/02/17 1654 Signed Impressions: Service Date/Time: Saturday, September 02, 2017 17:47 - CONCLUSION: 1. Probable free intraperitoneal air. Further evaluation with abdomen and pelvic CT recommended. Joel Garcia MD Abdomen/Pelvis CT 09/01/17 0559 Signed Impressions: Service Date/Time: August 07:15 - CONCLUSION: Nonspecific free peritoneal fluid. No acute focal abnormalities. Juan Rivera MD Chest CT 09/01/17 0000 Signed Impressions: Service Date/Time: August 07:15 - CONCLUSION: No acute CT findings of the chest Juan Rivera MD Physical Exam HEENT: Normocephalic; atraumatic CHEST: Respirations synchronized with vent CARDIAC: RRR ABDOMEN: RAYMOND drain RUQ with small amount of yellow drainage, J tube clamped, abdominal binder in place. Dressing to abdomen is clean and dry. NG to LIWS with green colored drainage EXTREMITIES: No clubbing, cyanosis, or edema. SKIN: Normal; no rash; no jaundice. 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 2 weeks ago had mult episodes CGE, last few days melena - anemia - hgb 5.5 on admission, macrocytic. 2/2 above. never had EGD or colonoscopy before. he is not sure if he wants procedures right now - abd pain - c/o lower abd pain but tender diffusely on exam. could be ulcers vs gastritis. CT abd unremarkable aside from nonspecific peritoneal fluid. - chest pain - chest CT neg. hx HOCM, s/p heart valve replacement, recent septomyectomy 2017. Cody Roy [phone]. (09/03) --> S/P EGD yesterday --> Hiatal hernia. large amount of old blood and retained food in stomach, duodenal bulb ulcer blocking duodenal bul, unable to pass scope, abdomen increasingly distended. Pt taken for emergent exploratory laparotomy --> findings of perforated duodenal ulcer with massive contamination. J tube placement. RAYMOND drain placement. Per RN GS planning on starting the pt on TF tomorrow. H/H stable. NGT to LIWS with green colored drainage. No BM per RN. PLAN - Further recommendations per GS - GI will sign off, please reconsult as needed Pt has been seen and examined by myself and Dr. Frazier and this note is written on her behalf (Thu Canseco) Physician Comments seen, examined agree with above ID consult appreciated echocardiogram noted ok to start anticoagulation from gi point but also need to check with surgery egd in 4-6 weeks ppi avoid nsaids (Deb Frazier MD) Thu Canseco Sep 03, 2017 16:29 Deb Frazier MD Sep 03, 2017 18:18
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
[2017-09-03] MEDS: FLUCONAZOLE 400 MG PREMIX BAG 200 ML IV SCH (18:00)
[2017-09-03] MEDS ORDERED: LEVOFLOXACIN 750 MG PREMIX INJ 150 ML IV SCH (18:00)
[2017-09-03 19:33] LABS: HEMOGLOBIN 8.8 GM/DL (13.0-17.0)
--- NOTE | 2017-09-03 20:08 | MB ---
cc: Billie Parks MD DATE: 09/03/2017 CHIEF COMPLAINT: 1. History of mitral valve replacement. 2. Gastrointestinal bleed. 3. Chronic anticoagulation with warfarin due to mitral valve. 4. Critically ill with perforated duodenal ulcer with massive contamination. HISTORY OF PRESENT ILLNESS: Mr. Mcintosh is a 41-year-old man with a history of endocarditis, status post mitral valve replacement, who presented to the hospital with coffee-ground emesis. Per review of chart, he has cardiac history includes a [facility] [facility] mechanical valve placed 16 years ago and recent cardiac surgery to remove scar tissue from the left ventricle several years ago. He also had a septoplasty about a year ago. He had been taking Mobic twice daily for sternotomy pain and back pain, which is chronic. He was found to have a hemoglobin around 5. He was transfused packed red blood cells and taken for an EGD, which showed a large amount of old blood and retained food in the stomach, abdominal distention. He was taken emergently for an exploratory laparotomy due to extremis with decline in clinical examination during endoscopy. He had status post Jay patch of 1 cm duodenal ulcer with duodenal ulcer repair, placement of drain at duodenum, feeding jejunostomy and abdominal wall washout performed by Dr. Watson and Dr. Varma. He is currently intubated and sedated in the ICU. Infectious disease team is following. He is on Zosyn, fluconazole. Blood cultures are pending. He is on Versed, fentanyl and Levophed drips. Minimal urine output. LABORATORY STUDIES: White blood cell count of 5.2, hemoglobin 10.2, platelet count of 151,000, ANC is 4.6. He has a bandemia with 21% bands, 8% metamyelocytes and 4% myelocytes. Chemistry studies with a creatinine of 2.23, total protein 4.7, albumin 2.2, total bilirubin 1.0, AST 158, ALT is 57. PT is 24.9 and INR is 2.5. Cardiology team is also following concern with obstruction of mechanical mitral valve, as he is not anticoagulated and risk of obstruction of this. PAST MEDICAL HISTORY: 1. Hypertrophic cardiomyopathy. 2. History of endocarditis. 3. Anxiety and depression. 4. History of mitral valve mechanical valve replacement due to endocarditis approximately 16 years ago. 5. History of congestive heart failure and myocardial infarction. PAST SURGICAL HISTORY: 1. Mechanical mitral valve in 2000. 2. Septal myomectomy in August 2016. 3. AICD in 2013. HOME MEDICATIONS: 1. Aripiprazole. 2. Cymbalta. 3. Atenolol. 4. Warfarin 2.5 Mg daily. 5. Mobic. ALLERGIES: 1. HALDOL. 2. ATIVAN. 3. PROMETHAZINE. 4. ZOLPIDEM. FAMILY HISTORY: HOCM and endocarditis. SOCIAL HISTORY: Denies alcohol use. Smokes 1 pack per day. No illegal drug use. History of benzo abuse per EMR. Possible drug abuse in the past. REVIEW OF SYSTEMS: Unable to obtain as the patient is intubated and sedated. PHYSICAL EXAMINATION: VITAL SIGNS: Temperature 97.4, pulse 66, blood pressure 116/60, pulse oximetry is 96%. GENERAL: Critically ill man, intubated and sedated. No apparent distress on multiple drips including pressors in the intensive care unit. CARDIOVASCULAR: Regular rate and rhythm. No murmurs. RESPIRATORY: Breath sounds present bilaterally. ABDOMEN: With abdominal banding around surgical incision site clean, dry and intact. ENT: Intubation. EXTREMITIES: With no edema. NEUROLOGIC: Intubated and sedated. ASSESSMENT AND PLAN: 1. Chronic anticoagulation therapy due to mechanical mitral valve. 2. Critically ill due to perforated duodenal ulcer and massive sepsis. The patient is currently off of anticoagulation due to recent surgery and risk of bleeding. We are not even 24 hours out from surgery. He is status post transfusion of 5 units of packed red blood cells, 4 units of FFP. Coags with an INR of 2.5 and a PT of 24.9. Laboratory studies with decline in platelet count since admission, suspect some degree of DIC due to sepsis. We will check PTT and fibrinogen. We will continue to follow blood count closely. We will also check a peripheral blood smear. Ideally, would be on anticoagulation as soon as possible given history of mechanical mitral valve; however, he is at extreme risk of bleeding given perforated duodenal ulcer and recent exploratory laparotomy. This is a very difficult situation in a young man who is critically ill with a perforated ulcer and a history of a mechanical mitral valve. Multiple services following. Hematology service will continue to follow. MD IRENE Juares/soheila , 06:19 PM , 08:07 PM DEEP
[2017-09-04] VITALS (18 sets, daily range): BP systolic 99–130; BP diastolic 51–72; PULSE 64–78; RESP 16; TEMP 97.8–99.8; O2SAT 93–99
[2017-09-04] MEDS: SODIUM CHLOR 0.9% 1000 ML INJ 1,000 ML IV SCH ×3 (00:41→20:46)
[2017-09-04] MEDS: PROPOFOL 1000 MG/100 ML IV PRN ×2 (00:41→08:03)
[2017-09-04] MEDS: PIPERACIL-TAZO 3.375 GM PREMIX 50 ML IV SCH ×4 (00:41→20:56)
[2017-09-04 04:47] LABS: HEMATOCRIT 25.5 % (39.0-51.0); HEMOGLOBIN 8.7 GM/DL (13.0-17.0)
--- NOTE | 2017-09-04 05:06 | RADRPT ---
EXAM DATE/TIME: 09/04/2017 03:33 [place] COMPARISON: CHEST SINGLE AP, September 03, 2017, 2:37. INDICATIONS : Infiltrate. MEDICAL HISTORY : Myocardial infarction. Congestive heart failure. Hypertension. SURGICAL HISTORY : Mitral valve replacement. ENCOUNTER: Subsequent ACUITY: 3 days PAIN SCORE: Non-responsive. LOCATION: Bilateral chest FINDINGS: A single AP erect portable view of the chest was obtained and again demonstrate the patient is status post median sternotomy and there is an artificial heart valve in place. The endotracheal tube remain s in place with the tip approximately 4 cm above the marian. A nasogastric tube is again seen coursin g through the esophagus into the stomach. There is moderate cardiomegaly. Hazy perihilar and bibasila r opacities remain without significant change. Both costophrenic angles remain blunted. CONCLUSION: 1. No significant change. Armen Rodriguez MD on September 04, 2017 at 5:02 Board Certified Radiologist. This report was verified electronically.
[2017-09-04 05:19] LABS: INTERNATIONAL NORMALIZED RATIO 1.7 RATIO; PROTHROMBIN TIME - PATIENT 16.7 SEC (9.8-11.6)
[2017-09-04 05:30] LABS: ALBUMIN 1.7 GM/DL (3.4-5.0); BICARBONATE 24.8 MEQ/L (21.0-32.0); CALCIUM 7.1 MG/DL (8.5-10.1); CALCIUM-PROTEIN CORRECTED 8.6 MG/DL (8.5-10.1); CREATININE 1.93 MG/DL (0.60-1.30); MAGNESIUM 2.1 MG/DL (1.5-2.5); PHOSPHORUS 2.8 MG/DL (2.5-4.9); TOTAL BILIRUBIN ADULT 0.8 MG/DL (0.2-1.0); TOTAL PROTEIN 4.4 GM/DL (6.4-8.2)
--- NOTE | 2017-09-04 06:08 | PD.PROCEDR ---
Procedure Note Procedure Endotracheal Intubation Procedure date: September 03, 2017 Indication: Respiratory failure postextubation requiring reintubation A time-out was completed verifying correct patient, procedure, site, positioning , and special equipment if applicable. The patient was placed in a flat position. Sedation was obtained using Etomidate 20mg. The patient was easily ventilated using an ambu bag. The [employer]/ MAC 4 BLADE was used and inserted into the oropharynx at which time there was a Grade 1 view of the vocal cords. A 8-portuguese endotracheal tube was inserted and visualized going through the vocal cords. The stylette was removed. Colorimetric change was visualized on the CO2 meter. Breath sounds were heard in both lung hollis equally. The endotracheal tube was placed at 23 cm, measured at the teeth. A chest x-ray was ordered to assess for pneumothorax and verify endotrachealtube placement. Estimated Blood Loss: 0 The patient tolerated the procedure well and there were no complications. Jethro Nash MD Sep 04, 2017 6:08 am
[2017-09-04] MEDS: DOCUSATE SODIUM 50 MG/SENNA 8.6 MG TAB PO SCH ×2 (08:03→20:56)
[2017-09-04] MEDS: PANTOPRAZOLE SODIUM 40 MG VIAL IV PUSH SCH ×2 (08:03→20:56)
[2017-09-04] MEDS: SODIUM CHLORIDE 0.9% FLUSH 10 ML FLUSH IV FLUSH SCH ×2 (08:03→20:56)
[2017-09-04] MEDS: ARIPiprazole 5 MG TAB PO SCH ×2 (08:03→21:03)
[2017-09-04] MEDS: DULoxetine HCl DR 30 MG CAP PO SCH (08:03)
[2017-09-04] MEDS: fentaNYL DRIP 250 ML IV PRN (08:04)
[2017-09-04] MEDS: NICOTINE 14 MG/24 HR PATCH T-DERMAL SCH (08:06)
[2017-09-04] MEDS: REMOVE OLD PATCH T-DERMAL SCH (08:06)
--- NOTE | 2017-09-04 09:44 | HHI.CCPN ---
Subjective Remarks/Hospital Course 09/02: 41-year-old male who presented to [facility] on 09/01/2017 after having episodes of coffee-ground emesis. The patient has had some sternotomy pain and chronic back pain, and so he was told to take Mobic twice a day. He started getting nauseous. After this, he started having coffee ground emesis. He underwent endoscopy examination by Dr. Frazier when he became clinically unstable and his abdomen became rock hard. He was emergently transferred to operating room where he underwent Exploratory laparotomy, Jay patch of a 1 cm duodenal ulcer with duodenal ulcer repair, placement of drain at the duodenum, feeding jejunostomy tube placement and abdominal washout by Drs. Varma and Shirley. Postprocedure he was transferred to intensive care unit where he was weaned off the mechanical ventilation and extubated following CPAP trial, however his respiration became more labored, patient became hypoxemic and respiratory distress requiring reintubation and continue mechanical ventilation. 09/03: He remains intubated and sedated. Currently he is on norepinephrine for BP support at 8 mcg/minute. FiO2 down to 45%. Sedation currently achieved with midazolam, propofol and fentanyl infusions. Urine output is low, T-max 99.3. No family present at bedside. Morning chest x-ray reviewed, ET tube in place, right subclavian central line, pulmonary vascular congestion, possible retrocardiac infiltrate. 09/04: Patient did well over the night. Norepinephrine is off. Current heart rate in the 70s. Propofol was stopped, and fentanyl and midazolam infusions. Patient becomes easily agitated with stimulation moving all extremities but that does not follow any commands. T-max of 98.8. I/O 2241/1550. Objective Vital Signs Date Time Temp Pulse Resp B/P (MAP) Pulse Ox O2 Delivery O2 Flow Rate FiO2 09/04/17 08:05 99 40 09/04/17 06:00 70 09/04/17 04:00 98.8 16 117/60 (79) 09/03/17 19:10 Mechanical Ventilator 09/03/17 01:50 4.00 Intake and Output 09/04/17 09/04/17 09/05/17 08:00 16:00 00:00 Intake Total 148 ml Output Total 670 ml Balance -522 ml Result Diagram: 09/04/170 09/04/17 0400 Other Results Laboratory Tests Test 09/04/17 05:27 Blood Gas Puncture Site RADHA Blood Gas Patient Temperature 98.6 Blood Gas HCO3 24 mmol/L (22-26) Blood Gas Base Excess -0.2 mmol/L (-2-2) Blood Gas Oxygen Saturation 96 % (90-100) Arterial Blood pH 7.42 (7.380-7.420) Arterial Blood Partial Pressure CO2 37 mmHg (38-42) Arterial Blood Partial Pressure O2 104 mmHg (61-120) Arterial Blood Oxygen Content 16.9 Vol % (12.0-20.0) Arterial Blood Carboxyhemoglobin 1.3 % (0-4) Arterial Blood Methemoglobin 0.9 % (0-2) Blood Gas Hemoglobin 12.4 G/DL (12.0-16.0) Oxygen Delivery Device VENTILATOR Blood Gas Ventilator Setting AC/16/600/PEEP 5 Blood Gas Inspired Oxygen 45 % Imaging Last 24 hours Impressions Abdomen X-Ray 09/02/17 1654 Signed Impressions: Service Date/Time: Saturday, September 02, 2017 17:47 - CONCLUSION: 1. Probable free intraperitoneal air. Further evaluation with abdomen and pelvic CT recommended. Joel Garcia MD Last 24 hours Impressions Abdomen X-Ray 09/02/17 1654 Signed Impressions: Service Date/Time: Saturday, September 02, 2017 17:47 - CONCLUSION: 1. Probable free intraperitoneal air. Further evaluation with abdomen and pelvic CT recommended. Joel Garcia MD Procedures None Objective Remarks General - middle-aged gentleman, intubated and sedated, ill-appearing HEENT - pupils are equal and reactive, sclerae are anicteric, neck is supple, no rigidity, no JVD, no carotid bruit, orally intubated, + NGT CV - regular heart sounds, metallic valve closure click Chest - scattered coarse breath sounds b/l, good air entry, no wheezes Abdomen - soft, non-distended, mildly tender, BS decreased, dressing over the surgical site -clean, jejunostomy tube in place Skin - no rashes, no cyanosis Extremities - warm and well perfused, no edema, + peripheral pulses, no clubbing Neuro - intubated, sedated, agitated, moving all extremities A/P Assessment and Plan 1. Septic shock -currently off pressors 2. Perforated duodenal ulcer with peritonitis s/p exploratory laparotomy with abdominal washout, Jay patch repair and placement of feeding jejunostomy, POD 2 3. Acute hypoxic respiratory failure -0.4 FiO2 and PEEP of 5 4. Upper GI bleed 5. Acute blood loss anemia secondary to above -hemoglobin slowly trending 6. History of mechanical mitral valve replacement ([facility] [facility] bileaflet, for previous endocarditis) 7. History of hypertrophic cardiomyopathy, status post septal myomectomy 8. JOHNNY -creatinine slowly improving, urine output is adequate 1. Start Precedex and stop midazolam. Continue fentanyl drip for pain control 2. Continue antibiotics per ID 3. Continue PRVC at the current ventilator settings. PIP is 25, patient is synchronized with the ventilator, no auto PEEP 4. Vent bundle and bronchodilators 5. We will attempt SBT later today after Precedex he started 6. Restart beta-vannessa. Avoid tachycardia. If pressors needed we will start phenylephrine and vaso 7. PPI twice daily 8. GI and surgery following 9. Coumadin will be on hold, concern is with his mechanical mitral valve, the possibility of obstruction. Restart heparin drip when okay with surgery and GI 10. DVT prophylaxis with SCDs and GI prophylaxis addressed above No family present at bedside. Darien Agrawal MD Sep 04, 2017 09:44
[2017-09-04] MEDS: DEXMEDETOMIDINE INJ 200 MCG in SODIUM CHLORIDE 0.9% INJ 50 ML IV PRN ×2 (10:06→12:28)
--- NOTE | 2017-09-04 11:17 | HHI.PR ---
Subjective Subjective Notes sedated on vent, RN reports no problems. trying to wean vent Objective Vitals/I&O Vital Signs Date Time Temp Pulse Resp B/P (MAP) Pulse Ox O2 Delivery O2 Flow Rate FiO2 09/04/17 08:05 99 40 09/04/17 06:00 70 09/04/17 04:00 98.8 16 117/60 (79) 09/03/17 19:10 Mechanical Ventilator 09/03/17 01:50 4.00 Labs Laboratory Tests Test 09/03/17 18:50 09/03/17 19:15 09/04/17 04:00 09/04/17 05:27 Activated Partial Thromboplast Time 49.1 Fibrinogen 652 Hemoglobin 8.8 8.7 Hematocrit 25.0 25.5 Blood Smear Pathologist Review Prothrombin Time 16.7 Prothromb Time International Ratio 1.7 Blood Urea Nitrogen 45 Creatinine 1.93 Random Glucose 87 Total Protein 4.4 Albumin 1.7 Calcium Level 7.1 Phosphorus Level 2.8 Magnesium Level 2.1 Alkaline Phosphatase 50 Aspartate Amino Transf (AST/SGOT) 120 Alanine Aminotransferase (ALT/SGPT) 50 Total Bilirubin 0.8 Sodium Level 144 Potassium Level 3.2 Chloride Level 110 Carbon Dioxide Level 24.8 Anion Gap 9 Estimat Glomerular Filtration Rate 39 Protein Corrected Calcium 8.6 Blood Gas Puncture Site RADHA Blood Gas Patient Temperature 98.6 Blood Gas HCO3 24 Blood Gas Base Excess -0.2 Blood Gas Oxygen Saturation 96 Arterial Blood pH 7.42 Arterial Blood Partial Pressure CO2 37 Arterial Blood Partial Pressure O2 104 Arterial Blood Oxygen Content 16.9 Arterial Blood Carboxyhemoglobin 1.3 Arterial Blood Methemoglobin 0.9 Blood Gas Hemoglobin 12.4 Oxygen Delivery Device VENTILATOR Blood Gas Ventilator Setting AC/16/600/PEEP 5 Blood Gas Inspired Oxygen 45 Date/Time Source Procedure Growth Status 09/03/17 19:20 Blood Peripheral Aerobic Blood Culture - Preliminary NO GROWTH IN 1 DAY Resulted 09/03/17 19:20 Blood Peripheral Anaerobic Blood Culture - Preliminary NO GROWTH IN 1 DAY Resulted Abdomen: Non-distended, Post-op tenderness Wound Wound : Wound Location: Abdomen Appearance: Clean & Dry Dressing: Dry A/P Assessment and Plan POD2 exp lap, repair of duodenal ulcer, J tube limit TF to 20cc/hr due to massive contamination/ileus wean as tolerated. leave NG in place for now. is adjacent to ulcer Michael Varma MD Sep 04, 2017 11:17
[2017-09-04] MEDS ORDERED: POTASSIUM CHLORIDE INJ 40 MEQ in SODIUM CHLORID 0.9% 500 ML INJ 500 ML IV-CENTRAL ONE (12:00)
--- NOTE | 2017-09-04 12:54 | PD.CARD.PN ---
Subjective Subjective Remarks Currently intubated Mother and father at bedside Objective Medications Current Medications Medications (Trade) Dose Ordered Sig/Khushboo Route Start Time Stop Time Status Last Admin (Protonix Inj) 40 mg Q12HR IV PUSH 09/01/17 09:30 09/04/17 08:03 (NS Flush) 2 ml UNSCH PRN IV FLUSH 09/01/17 09:30 (NS Flush) 2 ml BID IV FLUSH 09/01/17 21:00 09/04/17 08:03 (Tylenol) 650 mg Q4H PRN PO 09/01/17 09:30 (Zofran Inj) 4 mg Q6H PRN IVP 09/01/17 09:30 (Reglan Inj) 5 mg Q6H PRN IV PUSH 09/01/17 09:30 (Tylenol) 650 mg Q6H PRN PO 09/01/17 09:30 (Percocet 5-325 Mg) 1 tab Q6H PRN PO 09/01/17 09:30 09/02/17 13:55 (Percocet 10-325 Mg) 1 tab Q6H PRN PO 09/01/17 09:30 09/02/17 05:04 (Morphine Inj) 2 mg Q3H PRN IV PUSH 09/01/17 09:30 09/02/17 12:28 (Morphine Inj) 4 mg Q3H PRN IV PUSH 09/01/17 09:30 09/02/17 07:47 (Narcan Inj) 0.4 mg UNSCH PRN IV PUSH 09/01/17 09:30 (Ronda-Colace) 1 tab BID PO 09/01/17 21:00 09/04/17 08:03 (Milk Of Magnesia Liq) 30 ml Q12H PRN PO 09/01/17 09:30 (Senokot) 17.2 mg Q12H PRN PO 09/01/17 09:30 (Dulcolax Supp) 10 mg DAILY PRN RECTAL 09/01/17 09:30 (Lactulose Liq) 30 ml DAILY PRN PO 09/01/17 09:30 (Morphine Inj) 4 mg Q3H PRN IV PUSH 09/01/17 10:15 Miscellaneous Information 1 DAILY T-DERMAL 09/02/17 09:00 09/04/17 08:06 (Habitrol 14 Mg Patch.24 Hr) 1 patch DAILY T-DERMAL 09/02/17 09:00 09/04/17 08:06 (Abilify) 5 mg BID PO 09/01/17 21:00 09/04/17 08:03 (Cymbalta Dr) 30 mg DAILY PO 09/01/17 11:45 09/04/17 08:03 (KlonoPIN) 0.5 mg Q8HR PRN PO 09/01/17 20:45 09/02/17 12:46 (Betadine 5% Antisepsis Kit) 1 applic LINING SEWER PRN EACH NARE 09/02/17 14:45 09/05/17 14:44 Sodium Chloride 1,000 ml @ 100 mls/hr Q10H IV 09/02/17 20:00 09/04/17 08:07 Fluconazole/ Sodium Chloride 200 ml @ 100 mls/hr Q24H IV 09/03/17 18:00 09/03/17 18:00 Propofol 100 ml @ 1.98 mls/hr TITRATE PRN IV 09/02/17 20:30 09/04/17 08:03 Norepinephrine Bitartrate 250 ml @ 7.5 mls/hr TITRATE PRN IV 09/02/17 20:30 09/03/17 18:47 Fentanyl Citrate 250 ml @ 5 mls/hr TITRATE PRN IV 09/03/17 01:00 09/04/17 08:04 Midazolam HCl 100 ml @ 2 mls/hr TITRATE PRN IV 09/03/17 01:00 09/03/17 20:23 Piperacillin Sod/ Tazobactam Sod 50 ml @ 100 mls/hr Q6H IV 09/03/17 14:00 09/04/17 08:03 Potassium Chloride 40 meq/ Sodium Chloride 520 ml @ 130 mls/hr ONCE ONCE IV-CENTRAL 09/04/17 12:00 09/04/17 15:59 09/04/17 11:58 Dexmedetomidine HCl 1000 mcg/ Sodium Chloride 250 ml @ 3.77 mls/hr TITRATE PRN IV 09/04/17 12:30 Vital Signs / I&O Vital Signs Date Time Temp Pulse Resp B/P (MAP) Pulse Ox O2 Delivery O2 Flow Rate FiO2 09/04/17 08:05 99 40 09/04/17 06:00 70 09/04/17 04:00 69 09/04/17 04:00 98.8 69 16 95 117/60 (79) 09/04/17 04:00 45 09/04/17 03:46 95 40 09/04/17 02:00 66 09/04/17 00:24 96 45 09/04/17 00:00 98.8 66 16 96 101/61 (74) 09/04/17 00:00 67 09/04/17 00:00 45 09/03/17 22:00 67 09/03/17 20:39 96 45 09/03/17 20:00 45 09/03/17 20:00 67 09/03/17 20:00 98.0 66 16 95 112/59 (76) 09/03/17 19:10 96 Mechanical Ventilator 45 09/03/17 18:47 67 110/58 09/03/17 18:00 67 09/03/17 16:37 66 124/64 09/03/17 16:00 45 09/03/17 16:00 97.4 66 16 96 116/60 (78) 09/03/17 16:00 66 09/03/17 15:27 96 45 09/03/17 14:00 69 09/03/17 13:46 69 121/64 I/O 09/03/17 09/03/17 09/03/17 09/04/17 09/04/17 09/04/17 07:00 15:00 23:00 07:00 15:00 23:00 Intake Total 3200 ml 600 ml 1493 ml 148 ml Output Total 435 ml 880 ml 670 ml Balance 2765 ml 600 ml 613 ml -522 ml IV Total 3200 ml 600 ml 1493 ml 148 ml Output Urine Total 375 ml 660 ml 650 ml Gastric Drainage Total 200 ml 0 ml Drainage Total 60 ml 20 ml 20 ml # Bowel Movements 0 0 Physical Exam GENERAL: Intubated and sedated SKIN: Warm and dry. HEAD: Atraumatic. Normocephalic. EYES: Pupils equal and round. No scleral icterus. No injection or drainage. ENT: No nasal bleeding or discharge. Mucous membranes pink and moist. NECK: Trachea midline. No JVD. CARDIOVASCULAR: Regular rate and rhythm. 06/18 creascendo-decrescendo murmur to the RSB, mechanical click noted RESPIRATORY: No accessory muscle use. Clear to auscultation. Breath sounds equal bilaterally. GASTROINTESTINAL: Abdomen soft, non-tender, nondistended. Hepatic and splenic margins not palpable. MUSCULOSKELETAL: Extremities without clubbing, cyanosis, or edema. No obvious deformities. NEUROLOGICAL: Intubated and sedated Laboratory Laboratory Tests Test 09/03/17 18:50 09/03/17 19:15 09/04/17 04:00 09/04/17 05:27 Activated Partial Thromboplast Time 49.1 SEC Fibrinogen 652 mg/dL Hemoglobin 8.8 GM/DL 8.7 GM/DL Hematocrit 25.0 % 25.5 % Blood Smear Pathologist Review Prothrombin Time 16.7 SEC Prothromb Time International Ratio 1.7 RATIO Blood Urea Nitrogen 45 MG/DL Creatinine 1.93 MG/DL Random Glucose 87 MG/DL Total Protein 4.4 GM/DL Albumin 1.7 GM/DL Calcium Level 7.1 MG/DL Phosphorus Level 2.8 MG/DL Magnesium Level 2.1 MG/DL Alkaline Phosphatase 50 U/L Aspartate Amino Transf (AST/SGOT) 120 U/L Alanine Aminotransferase (ALT/SGPT) 50 U/L Total Bilirubin 0.8 MG/DL Sodium Level 144 MEQ/L Potassium Level 3.2 MEQ/L Chloride Level 110 MEQ/L Carbon Dioxide Level 24.8 MEQ/L Anion Gap 9 MEQ/L Estimat Glomerular Filtration Rate 39 ML/MIN Protein Corrected Calcium 8.6 MG/DL Blood Gas Puncture Site RADHA Blood Gas Patient Temperature 98.6 Blood Gas HCO3 24 mmol/L Blood Gas Base Excess -0.2 mmol/L Blood Gas Oxygen Saturation 96 % Arterial Blood pH 7.42 Arterial Blood Partial Pressure CO2 37 mmHg Arterial Blood Partial Pressure O2 104 mmHg Arterial Blood Oxygen Content 16.9 Vol % Arterial Blood Carboxyhemoglobin 1.3 % Arterial Blood Methemoglobin 0.9 % Blood Gas Hemoglobin 12.4 G/DL Oxygen Delivery Device VENTILATOR Blood Gas Ventilator Setting AC/16/600/PEEP 5 Blood Gas Inspired Oxygen 45 % Assessment and Plan Problem List: (1) Familial hypertrophic cardiomyopathy ICD Codes: I42.2 - Other hypertrophic cardiomyopathy (2) H/O hypertrophic cardiomyopathy ICD Codes: Z86.79 - Personal history of other diseases of the circulatory system (3) H/O mitral valve replacement with mechanical valve ICD Codes: Z95.2 - Presence of prosthetic heart valve (4) GI bleed ICD Codes: K92.2 - Gastrointestinal hemorrhage, unspecified Status: Acute (5) S/P MVR (mitral valve replacement) ICD Codes: Z95.4 - S/P MVR (mitral valve replacement) Status: Acute Permanent Comment: Need prophyllaxis - Due to endocarditis Last Edited By: Ozzy Edwards on May 26, 2014 13:06 (6) Congestive heart failure ICD Codes: I50.9 - Congestive heart failure Status: Acute (7) History of endocarditis ICD Codes: Z86.79 - History of endocarditis Status: Acute (8) AICD (automatic cardioverter/defibrillator) present ICD Codes: Z95.810 - AICD (automatic cardioverter/defibrillator) present Status: Acute Assessment and Plan 1) EGD with perforation s/p Jay patch 2) Mechanical mitral valve Would restart heparin as soon as it is safe per GI/Surgery Has been cleared by GI Await surgery to give the ok on restarting, understand risk of restarting with perforation and recent surgery 3) Hx HOCM Previous septal myectomy Normal ejection fraction on echo, no gradient noted from previous HOCM s/p septal myectomy 4) GI Bleed Most likely secondary to NSAID use 5) Barber Stylist, 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 Problem Qualifiers (1) GI bleed: Qualified Codes: K29.71 - Gastritis, unspecified, with bleeding Angelo Cabrales DO Sep 04, 2017 12:54
--- NOTE | 2017-09-04 13:43 | PD.ONC.PN ---
Subjective Subjective Remarks Afebrile Patient remains intubated and sedated on fentanyl and Precedex Per RN there has been no oozing from surgical wound Objective Data Date Time Temp Pulse Resp B/P (MAP) Pulse Ox O2 Delivery O2 Flow Rate FiO2 09/04/17 08:05 99 40 09/04/17 06:00 70 09/04/17 04:00 69 09/04/17 04:00 98.8 69 16 95 117/60 (79) 09/04/17 04:00 45 09/04/17 03:46 95 40 09/04/17 02:00 66 09/04/17 00:24 96 45 09/04/17 00:00 98.8 66 16 96 101/61 (74) 09/04/17 00:00 67 09/04/17 00:00 45 09/03/17 22:00 67 09/03/17 20:39 96 45 09/03/17 20:00 45 09/03/17 20:00 67 09/03/17 20:00 98.0 66 16 95 112/59 (76) 09/03/17 19:10 96 Mechanical Ventilator 45 09/03/17 18:47 67 110/58 09/03/17 18:00 67 09/03/17 16:37 66 124/64 09/03/17 16:00 45 09/03/17 16:00 97.4 66 16 96 116/60 (78) 09/03/17 16:00 66 09/03/17 15:27 96 45 09/03/17 14:00 69 09/03/17 13:46 69 121/64 09/04/17 09/04/17 09/04/17 07:00 15:00 23:00 Intake Total 148 ml Output Total 670 ml Balance -522 ml Result Diagram: 09/04/17 0400 09/04/17 0400 Laboratory Results Laboratory Tests Test 09/03/17 18:50 09/03/17 19:15 09/04/17 04:00 09/04/17 05:27 Activated Partial Thromboplast Time 49.1 SEC Fibrinogen 652 mg/dL Hemoglobin 8.8 GM/DL 8.7 GM/DL Hematocrit 25.0 % 25.5 % Blood Smear Pathologist Review Prothrombin Time 16.7 SEC Prothromb Time International Ratio 1.7 RATIO Blood Urea Nitrogen 45 MG/DL Creatinine 1.93 MG/DL Random Glucose 87 MG/DL Total Protein 4.4 GM/DL Albumin 1.7 GM/DL Calcium Level 7.1 MG/DL Phosphorus Level 2.8 MG/DL Magnesium Level 2.1 MG/DL Alkaline Phosphatase 50 U/L Aspartate Amino Transf (AST/SGOT) 120 U/L Alanine Aminotransferase (ALT/SGPT) 50 U/L Total Bilirubin 0.8 MG/DL Sodium Level 144 MEQ/L Potassium Level 3.2 MEQ/L Chloride Level 110 MEQ/L Carbon Dioxide Level 24.8 MEQ/L Anion Gap 9 MEQ/L Estimat Glomerular Filtration Rate 39 ML/MIN Protein Corrected Calcium 8.6 MG/DL Blood Gas Puncture Site RADHA Blood Gas Patient Temperature 98.6 Blood Gas HCO3 24 mmol/L Blood Gas Base Excess -0.2 mmol/L Blood Gas Oxygen Saturation 96 % Arterial Blood pH 7.42 Arterial Blood Partial Pressure CO2 37 mmHg Arterial Blood Partial Pressure O2 104 mmHg Arterial Blood Oxygen Content 16.9 Vol % Arterial Blood Carboxyhemoglobin 1.3 % Arterial Blood Methemoglobin 0.9 % Blood Gas Hemoglobin 12.4 G/DL Oxygen Delivery Device VENTILATOR Blood Gas Ventilator Setting AC/16/600/PEEP 5 Blood Gas Inspired Oxygen 45 % Culture Results Microbiology Date/Time Source Procedure Growth Status 09/03/17 19:20 Blood Peripheral Aerobic Blood Culture - Preliminary NO GROWTH IN 1 DAY Resulted 09/03/17 19:20 Blood Peripheral Anaerobic Blood Culture - Preliminary NO GROWTH IN 1 DAY Resulted 09/03/17 19:10 Blood Peripheral Aerobic Blood Culture - Preliminary NO GROWTH IN 1 DAY Resulted 09/03/17 19:10 Blood Peripheral Anaerobic Blood Culture - Preliminary NO GROWTH IN 1 DAY Resulted Administered Medications Medications (Trade) Dose Ordered Sig/Khushboo Route PRN Reason Start Time Stop Time Status Last Admin Dose Admin Pantoprazole Sodium (Protonix Inj) 40 mg Q12HR IV PUSH 09/01/17 09:30 09/04/17 08:03 Sodium Chloride (NS Flush) 2 ml BID IV FLUSH 09/01/17 21:00 09/04/17 08:03 Oxycodone/ Acetaminophen (Percocet 5-325 Mg) 1 tab Q6H PRN PO PAIN SCALE 3 TO 5 09/01/17 09:30 09/02/17 13:55 Oxycodone/ Acetaminophen (Percocet 10-325 Mg) 1 tab Q6H PRN PO PAIN SCALE 6 TO 10 09/01/17 09:30 09/02/17 05:04 Morphine Sulfate (Morphine Inj) 2 mg Q3H PRN IV PUSH Pain 3-5; if unable to take PO 09/01/17 09:30 09/02/17 12:28 Morphine Sulfate (Morphine Inj) 4 mg Q3H PRN IV PUSH BREAKTHROUGH PAIN 09/01/17 09:30 09/02/17 07:47 Senna/Docusate Sodium (Ronda-Colace) 1 tab BID PO 09/01/17 21:00 09/04/17 08:03 Miscellaneous Information 1 DAILY T-DERMAL 09/02/17 09:00 09/04/17 08:06 Nicotine (Habitrol 14 Mg Patch.24 Hr) 1 patch DAILY T-DERMAL 09/02/17 09:00 09/04/17 08:06 Aripiprazole (Abilify) 5 mg BID PO 09/01/17 21:00 09/04/17 08:03 Duloxetine HCl (Cymbalta Dr) 30 mg DAILY PO 09/01/17 11:45 09/04/17 08:03 Clonazepam (KlonoPIN) 0.5 mg Q8HR PRN PO anxiety/withrawal symptoms 09/01/17 20:45 09/02/17 12:46 Sodium Chloride 1,000 ml @ 100 mls/hr Q10H IV 09/02/17 20:00 09/04/17 08:07 Fluconazole/ Sodium Chloride 200 ml @ 100 mls/hr Q24H IV 09/03/17 18:00 09/03/17 18:00 Propofol 100 ml @ 1.98 mls/hr TITRATE PRN IV SEDATION 09/02/17 20:30 09/04/17 08:03 Norepinephrine Bitartrate 250 ml @ 7.5 mls/hr TITRATE PRN IV Maintain MAP > 65 mmHg 09/02/17 20:30 09/03/17 18:47 Fentanyl Citrate 250 ml @ 5 mls/hr TITRATE PRN IV SEDATION 09/03/17 01:00 09/04/17 08:04 Midazolam HCl 100 ml @ 2 mls/hr TITRATE PRN IV SEDATION 09/03/17 01:00 09/03/17 20:23 Piperacillin Sod/ Tazobactam Sod 50 ml @ 100 mls/hr Q6H IV 09/03/17 14:00 09/04/17 08:03 Potassium Chloride 40 meq/ Sodium Chloride 520 ml @ 130 mls/hr ONCE ONCE IV-CENTRAL 09/04/17 12:00 09/04/17 15:59 09/04/17 11:58 Objective Remarks GENERAL: Young male resting in bed intubated and sedated SKIN: Warm and dry. HEAD: Normocephalic. EYES: No injection or drainage. NECK: Supple, trachea midline. CARDIOVASCULAR: Regular rate and rhythm. + murmur RESPIRATORY: Clear anteriorly. GASTROINTESTINAL: Abdominal binder in place. EXTREMITIES: No cyanosis, or edema. NEUROLOGICAL: Intubated and sedated Assessment/Plan Problem List: (1) H/O mitral valve replacement with mechanical valve ICD Codes: Z95.2 - Presence of prosthetic heart valve Plan: --Recommend resuming anticoagulation when cleared by GI and surgery --Closely monitor CBC and coags Hx/Workup: Patient has a history of endocarditis status post mitral valve replacement. He recently had cardiac surgery to remove scar tissue from the left ventricle several years ago. He is normally on chronic anticoagulation with warfarin with therapeutic dose to be between 2.5-3.5. (2) Perforation of duodenal ulcer ICD Codes: K26.5 - Chronic or unspecified duodenal ulcer with perforation Plan: --Patient was found to have a hemoglobin of 5 on admission. During an EGD a large amount of old blood was found and he was taken emergently for exploratory laparotomy. He is status post repair of 1 cm duodenal ulcer with duodenal ulcer repair, placement of drain at duodenum by Dr. Watson and Dr. Varma. --GI and surgery following Assessment 41-year-old male with history of mitral valve replacement found to be severely anemic on admission Plan 1. Recommend resuming anticoagulation when cleared by GI and surgery 2. Monitor CBC 3. Monitor for bleeding Attending Statement The exam, history, and the medical decision-making described in the above note were completed with the assistance of the mid-level provider. I reviewed and agree with the findings presented. I attest that I had a [id number] encounter with the patient on the same day, and personally performed and documented my assessment and findings in the medical record. 41 yoF with mechanical mitral valve replacement in ICU with perforated duodenal ulcer and sepsis. Cardiology, GI, surgery, critical care services following. Restarting heparin today. Close monitoring of H/H Marietta Amaya Sep 04, 2017 13:43 Billie Parks MD Sep 04, 2017 16:25
[2017-09-04 14:13] LABS: HEMATOCRIT 26.1 % (39.0-51.0); HEMOGLOBIN 8.8 GM/DL (13.0-17.0)
[2017-09-04] MEDS: DEXMEDETOMIDINE INJ 1,000 MCG in SODIUM CHLOR 0.9% 250 ML INJ 240 ML IV PRN (14:39)
[2017-09-04] MEDS: HEPARIN-D5W 25,000 U/250 ML 250 ML IV PRN (16:34)
[2017-09-04 17:40] LABS: HEMATOCRIT 25.4 % (39.0-51.0); HEMOGLOBIN 8.7 GM/DL (13.0-17.0); MEAN CELL VOLUME 90.4 FL (80.0-100.0); MEAN CORPUSCULAR HGB CONC 34.3 % (32.0-36.0); MEAN PLATELET VOLUME 7.5 FL (7.0-11.0); PLATELET COUNT 121 TH/MM3 (150-450); RED BLOOD COUNT 2.81 MIL/MM3 (4.50-5.90); RED CELL DISTRIBUTION WIDTH 18.5 % (11.6-17.2)
[2017-09-04 18:21] LABS: INTERNATIONAL NORMALIZED RATIO 1.4 RATIO; PROTHROMBIN TIME - PATIENT 14.2 SEC (9.8-11.6)
[2017-09-04] MEDS: FLUCONAZOLE 400 MG PREMIX BAG 200 ML IV SCH (18:45)
--- NOTE | 2017-09-04 19:57 | EKG ---
Date Performed: 09/03/2017 Time Performed: 22:47:14 PTAGE: 41 years EKG: Sinus rhythm . Possible right atrial abnormality Left bundle branch block Compared to previous tracing, there was much artifact. Heart rate has slowed significantly. Left bundle branch block is new Abnormal ECG PREVIOUS TRACING : 09/02/17 @ 0409 DOCTOR: Carla Ibarra Interpretating Date/Time 09/04/2017 19:56:33
[2017-09-04] MEDS ORDERED: HEPARIN SODIUM - IV 10,000 UNITS/10 ML VIAL IV PUSH PRN (20:30)
[2017-09-05] VITALS (15 sets, daily range): BP systolic 94–141; BP diastolic 46–70; PULSE 60–100; RESP 16; TEMP 97.1–99.6; O2SAT 92–100
[2017-09-05] MEDS: MORPHINE SULFATE 2 MG/ML SYRINGE IV PUSH PRN (00:26)
[2017-09-05] MEDS: MORPHINE SULFATE 4 MG/ML INJ IV PUSH PRN ×2 (00:26→04:45)
[2017-09-05] MEDS: fentaNYL DRIP 250 ML IV PRN ×2 (01:00→13:59)
[2017-09-05] MEDS: DEXMEDETOMIDINE INJ 1,000 MCG in SODIUM CHLOR 0.9% 250 ML INJ 240 ML IV PRN (01:00)
[2017-09-05] MEDS: PIPERACIL-TAZO 3.375 GM PREMIX 50 ML IV SCH ×4 (01:20→20:17)
[2017-09-05 04:30] LABS: AUTOMATED NEUTROPHIL # 8.7 TH/MM3 (1.8-7.7); BASOPHIL % 0.3 % (0.0-2.0); EOSINOPHIL # 0.2 TH/MM3 (0-0.4); EOSINOPHIL % 1.5 % (0.0-4.0); HEMATOCRIT 27.8 % (39.0-51.0); HEMOGLOBIN 9.3 GM/DL (13.0-17.0); LYMPH % 3.3 % (9.0-44.0); LYMPHOCYTE # 0.3 TH/MM3 (1.0-4.8); MEAN CELL VOLUME 91.4 FL (80.0-100.0); MEAN CORPUSCULAR HEMOGLOBIN 30.5 PG (27.0-34.0); MEAN CORPUSCULAR HGB CONC 33.4 % (32.0-36.0); MEAN PLATELET VOLUME 7.4 FL (7.0-11.0); MONO % 6.7 % (0.0-8.0); MONOCYTE # 0.7 TH/MM3 (0-0.9); NEUT % 88.2 % (16.0-70.0); PLATELET COUNT 112 TH/MM3 (150-450); RED BLOOD COUNT 3.05 MIL/MM3 (4.50-5.90); RED CELL DISTRIBUTION WIDTH 19.2 % (11.6-17.2); WHITE BLOOD COUNT 9.9 TH/MM3 (4.0-11.0)
[2017-09-05 04:37] LABS: INTERNATIONAL NORMALIZED RATIO 1.3 RATIO; PROTHROMBIN TIME - PATIENT 12.9 SEC (9.8-11.6)
[2017-09-05 04:47] LABS: ALBUMIN 1.7 GM/DL (3.4-5.0); AST (GOT) 80 U/L (15-37); BICARBONATE 24.4 MEQ/L (21.0-32.0); BLOOD UREA NITROGEN 39 MG/DL (7-18); CALCIUM 7.7 MG/DL (8.5-10.1); CHLORIDE 114 MEQ/L (98-107); CREATININE 1.52 MG/DL (0.60-1.30); GLOMERULAR FILTRATION RATE 51 ML/MIN (>89); GLUCOSE,RANDOM 122 MG/DL (74-106); MAGNESIUM 2.3 MG/DL (1.5-2.5); SODIUM (NA) 146 MEQ/L (136-145)
[2017-09-05 04:50] LABS: ALKALINE PHOSPHATASE 75 U/L (45-117); ALT (GPT) 47 U/L (12-78); TOTAL BILIRUBIN ADULT 0.6 MG/DL (0.2-1.0); TOTAL PROTEIN 4.8 GM/DL (6.4-8.2)
[2017-09-05] MEDS: PROPOFOL 1000 MG/100 ML IV PRN ×2 (05:35→20:17)
[2017-09-05] MEDS ORDERED: FUROSEMIDE 20 MG/2 ML VIAL IV PUSH STA (06:24)
[2017-09-05] MEDS: REMOVE OLD PATCH T-DERMAL SCH (09:00)
[2017-09-05] MEDS: PANTOPRAZOLE SODIUM 40 MG VIAL IV PUSH SCH ×2 (09:35→20:17)
[2017-09-05] MEDS: DULoxetine HCl DR 30 MG CAP PO SCH (09:35)
[2017-09-05] MEDS: DOCUSATE SODIUM 50 MG/SENNA 8.6 MG TAB PO SCH ×2 (09:36→20:18)
[2017-09-05] MEDS: ARIPiprazole 5 MG TAB PO SCH ×2 (09:36→20:18)
[2017-09-05] MEDS: SODIUM CHLORIDE 0.9% FLUSH 10 ML FLUSH IV FLUSH SCH ×2 (09:36→20:18)
[2017-09-05] MEDS: NICOTINE 14 MG/24 HR PATCH T-DERMAL SCH (09:36)
[2017-09-05] MEDS: SODIUM CHLOR 0.9% 1000 ML INJ 1,000 ML IV SCH ×2 (09:40→18:26)
--- NOTE | 2017-09-05 13:29 | HHI.CCPN ---
Subjective Remarks/Hospital Course 09/02: 41-year-old male who presented to [facility] on 09/01/2017 after having episodes of coffee-ground emesis. The patient has had some sternotomy pain and chronic back pain, and so he was told to take Mobic twice a day. He started getting nauseous. After this, he started having coffee ground emesis. He underwent endoscopy examination by Dr. Frazier when he became clinically unstable and his abdomen became rock hard. He was emergently transferred to operating room where he underwent Exploratory laparotomy, Jay patch of a 1 cm duodenal ulcer with duodenal ulcer repair, placement of drain at the duodenum, feeding jejunostomy tube placement and abdominal washout by Drs. Varma and Shirley. Postprocedure he was transferred to intensive care unit where he was weaned off the mechanical ventilation and extubated following CPAP trial, however his respiration became more labored, patient became hypoxemic and respiratory distress requiring reintubation and continue mechanical ventilation. 09/03: He remains intubated and sedated. Currently he is on norepinephrine for BP support at 8 mcg/minute. FiO2 down to 45%. Sedation currently achieved with midazolam, propofol and fentanyl infusions. Urine output is low, T-max 99.3. No family present at bedside. Morning chest x-ray reviewed, ET tube in place, right subclavian central line, pulmonary vascular congestion, possible retrocardiac infiltrate. 09/04: Patient did well over the night. Norepinephrine is off. Current heart rate in the 70s. Propofol was stopped, and fentanyl and midazolam infusions. Patient becomes easily agitated with stimulation moving all extremities but that does not follow any commands. T-max of 98.8. I/O 2241/1550. 09/05: Remains sedated, orally intubated on mechanical ventilation. On J-tube feeds at 20 cc per hour. FiO2 70% PEEP increased to +10 Objective Vital Signs Date Time Temp Pulse Resp B/P (MAP) Pulse Ox O2 Delivery O2 Flow Rate FiO2 09/05/17 12:38 100 70 09/05/17 10:00 68 09/05/17 09:47 Ventilator 09/05/17 08:00 97.1 16 120/66 (84) 09/03/17 01:50 4.00 Intake and Output 09/05/17 09/05/17 09/06/17 08:00 16:00 00:00 Intake Total 772 ml Output Total 690 ml Balance 82 ml Result Diagram: 09/05/17 0405 09/05/17 0405 Other Results Laboratory Tests Test 09/05/17 04:37 Blood Gas Puncture Site RADHA Blood Gas Patient Temperature 98.6 Blood Gas HCO3 22 mmol/L (22-26) Blood Gas Base Excess -2.4 mmol/L (-2-2) Blood Gas Oxygen Saturation 97 % (90-100) Arterial Blood pH 7.35 (7.380-7.420) Arterial Blood Partial Pressure CO2 42 mmHg (38-42) Arterial Blood Partial Pressure O2 122 mmHg (61-120) Arterial Blood Oxygen Content 12.5 Vol % (12.0-20.0) Arterial Blood Carboxyhemoglobin 1.3 % (0-4) Arterial Blood Methemoglobin 0.5 % (0-2) Blood Gas Hemoglobin 9.0 G/DL (12.0-16.0) Oxygen Delivery Device VENTILATOR Blood Gas Ventilator Setting AC/16/600/PEEP 5 Blood Gas Inspired Oxygen 65 % Imaging Last 24 hours Impressions Abdomen X-Ray 09/02/[id number] Signed Impressions: Service Date/Time: Saturday, September 02, 2017 17:47 - CONCLUSION: 1. Probable free intraperitoneal air. Further evaluation with abdomen and pelvic CT recommended. Joel Garcia MD Last 24 hours Impressions Abdomen X-Ray [id number]/02/171653 Signed Impressions: Service Date/Time: Saturday, September 02, 2017 17:47 - CONCLUSION: 1. Probable free intraperitoneal air. Further evaluation with abdomen and pelvic CT recommended. Joel Garcia MD Procedures None Objective Remarks General - middle-aged gentleman, intubated and sedated, ill-appearing HEENT - pupils are equal and reactive, sclerae are anicteric, neck is supple, no rigidity, no JVD, no carotid bruit, orally intubated, + NGT CV - regular heart sounds, metallic valve closure click Chest - scattered coarse breath sounds b/l, good air entry, no wheezes Abdomen - soft, non-distended, mildly tender, BS decreased, dressing over the surgical site -clean, J tube in place Skin - no rashes, no cyanosis Extremities - warm and well perfused, no edema, + peripheral pulses, no clubbing Neuro - intubated, sedated, moving all extremities A/P Assessment and Plan 1. Septic shock -currently off pressors 2. Perforated duodenal ulcer with peritonitis s/p exploratory laparotomy with abdominal washout, Jay patch repair and placement of feeding jejunostomy, POD 3 3. Acute hypoxic respiratory failure -0.7 FiO2 and PEEP 10 4. Upper GI bleed 5. Acute blood loss anemia secondary to above -hemoglobin slowly trending 6. History of mechanical mitral valve replacement ([facility] [facility] bileaflet, for previous endocarditis) 7. History of hypertrophic cardiomyopathy, status post septal myomectomy 8. JOHNNY -creatinine slowly improving, urine output is adequate Plan 1. Continue sedation with daily sedation medication. 2. Continue antibiotics per ID 3. Continue PRVC FiO2 70%, PEEP increased to +10 4. Vent bundle and bronchodilators 5. Hold off on SBT till FiO2 and PEEP requirement decreases 6. Continue beta-vannessa. Avoid tachycardia. If pressors needed we will start phenylephrine and vaso 7. PPI twice daily 8. GI and surgery following 9. Coumadin will be on hold, concern is with his mechanical mitral valve, the possibility of obstruction. Restart heparin drip when okay with surgery and GI 10. DVT prophylaxis with SCDs and GI prophylaxis addressed above No family present at bedside. Time spent on critical care excluding procedures 35 minutes Travis Courtney MD Sep 05, 2017 13:28
--- NOTE | 2017-09-05 16:01 | HHI.PR ---
Subjective Subjective Notes Intubated/Sedated Father at bedside LALITHA Gerardo at bedside--- reports patient's ventilator settings have increased due to low sats and restlessness Objective Vitals/I&O Vital Signs Date Time Temp Pulse Resp B/P (MAP) Pulse Ox O2 Delivery O2 Flow Rate FiO2 09/05/17 14:00 62 09/05/17 12:38 100 70 09/05/17 12:00 98.0 16 122/68 (86) 09/05/17 09:47 Ventilator 09/03/17 01:50 4.00 Labs Laboratory Tests Test 09/04/17 22:05 09/05/17 04:05 09/05/17 04:37 Activated Partial Thromboplast Time 52.1 54.1 White Blood Count 9.9 Red Blood Count 3.05 Hemoglobin 9.3 Hematocrit 27.8 Mean Corpuscular Volume 91.4 Mean Corpuscular Hemoglobin 30.5 Mean Corpuscular Hemoglobin Concent 33.4 Red Cell Distribution Width 19.2 Platelet Count 112 Mean Platelet Volume 7.4 Neutrophils (%) (Auto) 88.2 Lymphocytes (%) (Auto) 3.3 Monocytes (%) (Auto) 6.7 Eosinophils (%) (Auto) 1.5 Basophils (%) (Auto) 0.3 Neutrophils # (Auto) 8.7 Lymphocytes # (Auto) 0.3 Monocytes # (Auto) 0.7 Eosinophils # (Auto) 0.2 Basophils # (Auto) 0.0 CBC Comment DIFF FINAL Differential Comment Prothrombin Time 12.9 Prothromb Time International Ratio 1.3 Blood Urea Nitrogen 39 Creatinine 1.52 Random Glucose 122 Total Protein 4.8 Albumin 1.7 Calcium Level 7.7 Phosphorus Level 3.0 Magnesium Level 2.3 Alkaline Phosphatase 75 Aspartate Amino Transf (AST/SGOT) 80 Alanine Aminotransferase (ALT/SGPT) 47 Total Bilirubin 0.6 Sodium Level 146 Potassium Level 3.8 Chloride Level 114 Carbon Dioxide Level 24.4 Anion Gap 8 Estimat Glomerular Filtration Rate 51 Blood Gas Puncture Site RADHA Blood Gas Patient Temperature 98.6 Blood Gas HCO3 22 Blood Gas Base Excess -2.4 Blood Gas Oxygen Saturation 97 Arterial Blood pH 7.35 Arterial Blood Partial Pressure CO2 42 Arterial Blood Partial Pressure O2 122 Arterial Blood Oxygen Content 12.5 Arterial Blood Carboxyhemoglobin 1.3 Arterial Blood Methemoglobin 0.5 Blood Gas Hemoglobin 9.0 Oxygen Delivery Device VENTILATOR Blood Gas Ventilator Setting AC/16/600/PEEP 5 Blood Gas Inspired Oxygen 65 Date/Time Source Procedure Growth Status 09/03/17 19:20 Blood Peripheral Aerobic Blood Culture - Preliminary NO GROWTH IN 2 DAYS Resulted 09/03/17 19:20 Blood Peripheral Anaerobic Blood Culture - Preliminary NO GROWTH IN 2 DAYS Resulted Cardiovascular: Regular Lungs: Clear Abdomen: Other (BInder in place; midline incision with dry dressing; RAYMOND with serous drainage; J tube with TF ) Extremities: Other (Molderate generalized edema ) Narrative Exam Donaldson in place with clear yellow urine A/P Assessment and Plan 41 year old male POD3 ex lap; repair of duodenal ulcer, J tube placement -Vent per CCM; FiO2 increased this AM -Continue routine RAYMOND care -NGT to LIWS -TF via J tube--- 20 cc/hr -Heparin gtt per Cardiology SEEN WITH PAPER CONSERVATOR WHO DOCUMENTED OUR VISIT. I CERTIFY AND ATTEST I SAW THE PATIENT. DW FAMILY AT BEDSIDE KENIA TORO MD FACS Ines ValentinoP/Brake Drum Lathe Operator PAPER CONSERVATOR Sep 05, 2017 16:01 Kenia Toro MD Sep 12, 2017 11:55
--- NOTE | 2017-09-05 18:07 | PD.CARD.PN ---
Subjective Subjective Remarks Currently intubated at bedside Objective Medications Current Medications Medications (Trade) Dose Ordered Sig/Khushboo Route Start Time Stop Time Status Last Admin (Protonix Inj) 40 mg Q12HR IV PUSH 09/01/17 09:30 09/05/17 09:35 (NS Flush) 2 ml UNSCH PRN IV FLUSH 09/01/17 09:30 (NS Flush) 2 ml BID IV FLUSH 09/01/17 21:00 09/05/17 09:36 (Tylenol) 650 mg Q4H PRN PO 09/01/17 09:30 (Zofran Inj) 4 mg Q6H PRN IVP 09/01/17 09:30 (Reglan Inj) 5 mg Q6H PRN IV PUSH 09/01/17 09:30 (Tylenol) 650 mg Q6H PRN PO 09/01/17 09:30 (Percocet 5-325 Mg) 1 tab Q6H PRN PO 09/01/17 09:30 09/02/17 13:55 (Percocet 10-325 Mg) 1 tab Q6H PRN PO 09/01/17 09:30 09/02/17 05:04 (Morphine Inj) 2 mg Q3H PRN IV PUSH 09/01/17 09:30 09/02/17 12:28 (Morphine Inj) 4 mg Q3H PRN IV PUSH 09/01/17 09:30 09/05/17 04:45 (Narcan Inj) 0.4 mg UNSCH PRN IV PUSH 09/01/17 09:30 (Ronda-Colace) 1 tab BID PO 09/01/17 21:00 09/05/17 09:36 (Milk Of Magnesia Liq) 30 ml Q12H PRN PO 09/01/17 09:30 (Senokot) 17.2 mg Q12H PRN PO 09/01/17 09:30 (Dulcolax Supp) 10 mg DAILY PRN RECTAL 09/01/17 09:30 (Lactulose Liq) 30 ml DAILY PRN PO 09/01/17 09:30 (Morphine Inj) 4 mg Q3H PRN IV PUSH 09/01/17 10:15 Miscellaneous Information 1 DAILY T-DERMAL 09/02/17 09:00 09/05/17 09:00 (Habitrol 14 Mg Patch.24 Hr) 1 patch DAILY T-DERMAL 09/02/17 09:00 09/05/17 09:36 (Abilify) 5 mg BID PO 09/01/17 21:00 09/05/17 09:36 (Cymbalta Dr) 30 mg DAILY PO 09/01/17 11:45 09/05/17 09:35 (KlonoPIN) 0.5 mg Q8HR PRN PO 09/01/17 20:45 09/02/17 12:46 Sodium Chloride 1,000 ml @ 100 mls/hr Q10H IV 09/02/17 20:00 09/05/17 09:40 Fluconazole/ Sodium Chloride 200 ml @ 100 mls/hr Q24H IV 09/03/17 18:00 09/04/17 18:45 Propofol 100 ml @ 1.98 mls/hr TITRATE PRN IV 09/02/17 20:30 09/05/17 05:35 Norepinephrine Bitartrate 250 ml @ 7.5 mls/hr TITRATE PRN IV 09/02/17 20:30 09/03/17 18:47 Fentanyl Citrate 250 ml @ 5 mls/hr TITRATE PRN IV 09/03/17 01:00 09/05/17 13:59 Midazolam HCl 100 ml @ 2 mls/hr TITRATE PRN IV 09/03/17 01:00 09/03/17 20:23 Piperacillin Sod/ Tazobactam Sod 50 ml @ 100 mls/hr Q6H IV 09/03/17 14:00 09/05/17 13:09 Dexmedetomidine HCl 1000 mcg/ Sodium Chloride 250 ml @ 3.77 mls/hr TITRATE PRN IV 09/04/17 12:30 09/05/17 01:00 (Heparin Inj) 5,000 units UNSCH PRN IV PUSH 09/04/17 20:30 (Heparin Inj) 2,500 units UNSCH PRN IV PUSH 09/04/17 20:30 Heparin Sodium/ Dextrose 250 ml @ 9 mls/hr TITRATE PRN IV 09/04/17 14:30 09/04/17 16:34 Vital Signs / I&O Vital Signs Date Time Temp Pulse Resp B/P (MAP) Pulse Ox O2 Delivery O2 Flow Rate FiO2 09/05/17 16:00 98.2 65 16 109/59 (76) 100 09/05/17 16:00 65 09/05/17 16:00 70 09/05/17 14:00 62 09/05/17 12:38 100 70 09/05/17 12:00 98.0 60 16 122/68 (86) 100 09/05/17 12:00 45 09/05/17 12:00 60 09/05/17 10:00 68 09/05/17 09:47 96 Ventilator 70 09/05/17 09:47 96 70 09/05/17 08:00 97.1 60 16 120/66 (84) 95 09/05/17 08:00 95 Mechanical Ventilator 45 09/05/17 08:00 60 09/05/17 08:00 45 09/05/17 06:00 65 09/05/17 04:50 22 09/05/17 04:00 64 09/05/17 04:00 65 09/05/17 04:00 98.7 64 16 132/70 (90) 94 09/05/17 03:47 92 50 09/05/17 00:00 64 09/05/17 00:00 50 09/05/17 00:00 97.8 64 16 141/70 (93) 94 09/04/17 23:55 93 50 09/04/17 22:00 64 09/04/17 20:15 97 40 09/04/17 20:00 50 09/04/17 20:00 97.8 64 16 130/72 (91) 96 Automatic Cuff 09/04/17 20:00 64 09/04/17 19:00 98 Mechanical Ventilator 45 I/O 09/04/17 09/04/17 09/04/17 09/05/17 09/05/17 09/05/17 07:00 15:00 23:00 07:00 15:00 23:00 Intake Total 148 ml 1238 ml 772 ml Output Total 670 ml 830 ml 690 ml Balance -522 ml 408 ml 82 ml IV Total 148 ml 874 ml 550 ml Tube Feeding 334 ml 222 ml Tube Irrigant 30 ml Output Urine Total 650 ml 600 ml 350 ml Gastric Drainage Total 0 ml 200 ml 300 ml Drainage Total 20 ml 30 ml 40 ml # Bowel Movements 0 0 Physical Exam GENERAL: Intubated and sedated SKIN: Warm and dry. HEAD: Atraumatic. Normocephalic. EYES: Pupils equal and round. No scleral icterus. No injection or drainage. ENT: No nasal bleeding or discharge. Mucous membranes pink and moist. NECK: Trachea midline. No JVD. CARDIOVASCULAR: Regular rate and rhythm. 1/6 creascendo-decrescendo murmur to the RSB, mechanical click noted RESPIRATORY: No accessory muscle use. Clear to auscultation. Breath sounds equal bilaterally. GASTROINTESTINAL: Abdomen soft, non-tender, nondistended. Hepatic and splenic margins not palpable. MUSCULOSKELETAL: Extremities without clubbing, cyanosis, or edema. No obvious deformities. NEUROLOGICAL: Intubated and sedated Laboratory Laboratory Tests Test 09/04/17 22:05 09/05/17 04:05 09/05/17 04:37 Activated Partial Thromboplast Time 52.1 SEC 54.1 SEC White Blood Count 9.9 TH/MM3 Red Blood Count 3.05 MIL/MM3 Hemoglobin 9.3 GM/DL Hematocrit 27.8 % Mean Corpuscular Volume 91.4 FL Mean Corpuscular Hemoglobin 30.5 PG Mean Corpuscular Hemoglobin Concent 33.4 % Red Cell Distribution Width 19.2 % Platelet Count 112 TH/MM3 Mean Platelet Volume 7.4 FL Neutrophils (%) (Auto) 88.2 % Lymphocytes (%) (Auto) 3.3 % Monocytes (%) (Auto) 6.7 % Eosinophils (%) (Auto) 1.5 % Basophils (%) (Auto) 0.3 % Neutrophils # (Auto) 8.7 TH/MM3 Lymphocytes # (Auto) 0.3 TH/MM3 Monocytes # (Auto) 0.7 TH/MM3 Eosinophils # (Auto) 0.2 TH/MM3 Basophils # (Auto) 0.0 TH/MM3 CBC Comment DIFF FINAL Differential Comment Prothrombin Time 12.9 SEC Prothromb Time International Ratio 1.3 RATIO Blood Urea Nitrogen 39 MG/DL Creatinine 1.52 MG/DL Random Glucose 122 MG/DL Total Protein 4.8 GM/DL Albumin 1.7 GM/DL Calcium Level 7.7 MG/DL Phosphorus Level 3.0 MG/DL Magnesium Level 2.3 MG/DL Alkaline Phosphatase 75 U/L Aspartate Amino Transf (AST/SGOT) 80 U/L Alanine Aminotransferase (ALT/SGPT) 47 U/L Total Bilirubin 0.6 MG/DL Sodium Level 146 MEQ/L Potassium Level 3.8 MEQ/L Chloride Level 114 MEQ/L Carbon Dioxide Level 24.4 MEQ/L Anion Gap 8 MEQ/L Estimat Glomerular Filtration Rate 51 ML/MIN Blood Gas Puncture Site RADHA Blood Gas Patient Temperature 98.6 Blood Gas HCO3 22 mmol/L Blood Gas Base Excess -2.4 mmol/L Blood Gas Oxygen Saturation 97 % Arterial Blood pH 7.35 Arterial Blood Partial Pressure CO2 42 mmHg Arterial Blood Partial Pressure O2 122 mmHg Arterial Blood Oxygen Content 12.5 Vol % Arterial Blood Carboxyhemoglobin 1.3 % Arterial Blood Methemoglobin 0.5 % Blood Gas Hemoglobin 9.0 G/DL Oxygen Delivery Device VENTILATOR Blood Gas Ventilator Setting AC/16/600/PEEP 5 Blood Gas Inspired Oxygen 65 % Assessment and Plan Problem List: (1) Familial hypertrophic cardiomyopathy ICD Codes: I42.2 - Other hypertrophic cardiomyopathy (2) H/O hypertrophic cardiomyopathy ICD Codes: Z86.79 - Personal history of other diseases of the circulatory system (3) H/O mitral valve replacement with mechanical valve ICD Codes: Z95.2 - Presence of prosthetic heart valve (4) GI bleed ICD Codes: K92.2 - Gastrointestinal hemorrhage, unspecified Status: Acute (5) S/P MVR (mitral valve replacement) ICD Codes: Z95.4 - S/P MVR (mitral valve replacement) Status: Acute Permanent Comment: Need prophyllaxis - Due to endocarditis Last Edited By: Ozzy Edwards on May 26, 2014 13:06 (6) Congestive heart failure ICD Codes: I50.9 - Congestive heart failure Status: Acute (7) History of endocarditis ICD Codes: Z86.79 - History of endocarditis Status: Acute (8) AICD (automatic cardioverter/defibrillator) present ICD Codes: Z95.810 - AICD (automatic cardioverter/defibrillator) present Status: Acute Assessment and Plan 1) EGD with perforation s/p Jay patch 2) Mechanical mitral valve Restarted on Heparin drip No signs of bleeding 3) Hx HOCM Previous septal myectomy Normal ejection fraction on echo, no gradient noted from previous HOCM s/p septal myectomy 4) GI Bleed Most likely secondary to NSAID use 5) Press Set Up, 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 Problem Qualifiers (1) GI bleed: Qualified Codes: K29.71 - Gastritis, unspecified, with bleeding Angelo Cabrales DO Sep 05, 2017 18:06
[2017-09-05] MEDS: HEPARIN-D5W 25,000 U/250 ML 250 ML IV PRN (18:25)
[2017-09-05] MEDS: FLUCONAZOLE 400 MG PREMIX BAG 200 ML IV SCH (18:26)
[2017-09-05] MEDS: MIDAZOLAM 100 MG/100 ML INJ 100 ML IV PRN (23:05)
[2017-09-06] VITALS (18 sets, daily range): BP systolic 89–118; BP diastolic 50–65; PULSE 76–99; RESP 12–17; TEMP 99.5–100.3; O2SAT 97–100
[2017-09-06 02:01] LABS: HEMATOCRIT 27.7 % (39.0-51.0); MEAN CELL VOLUME 90.5 FL (80.0-100.0); MEAN CORPUSCULAR HEMOGLOBIN 29.5 PG (27.0-34.0); MEAN CORPUSCULAR HGB CONC 32.6 % (32.0-36.0); PLATELET COUNT 115 TH/MM3 (150-450); RED BLOOD COUNT 3.06 MIL/MM3 (4.50-5.90); RED CELL DISTRIBUTION WIDTH 18.4 % (11.6-17.2); WHITE BLOOD COUNT 13.9 TH/MM3 (4.0-11.0)
[2017-09-06 02:29] LABS: ALBUMIN 1.6 GM/DL (3.4-5.0); ALT (GPT) 42 U/L (12-78); AST (GOT) 50 U/L (15-37); BICARBONATE 27.6 MEQ/L (21.0-32.0); BLOOD UREA NITROGEN 35 MG/DL (7-18); CALCIUM 7.7 MG/DL (8.5-10.1); CHLORIDE 114 MEQ/L (98-107); CREATININE 1.43 MG/DL (0.60-1.30); GLOMERULAR FILTRATION RATE 55 ML/MIN (>89); GLUCOSE,RANDOM 97 MG/DL (74-106); SODIUM (NA) 148 MEQ/L (136-145)
[2017-09-06 02:31] LABS: ALKALINE PHOSPHATASE 85 U/L (45-117); INTERNATIONAL NORMALIZED RATIO 1.3 RATIO; PROTHROMBIN TIME - PATIENT 13.1 SEC (9.8-11.6); TOTAL BILIRUBIN ADULT 0.4 MG/DL (0.2-1.0); TOTAL PROTEIN 4.5 GM/DL (6.4-8.2)
[2017-09-06] MEDS: PIPERACIL-TAZO 3.375 GM PREMIX 50 ML IV SCH ×4 (02:45→20:08)
[2017-09-06] MEDS: fentaNYL DRIP 250 ML IV PRN ×4 (03:14→23:41)
[2017-09-06] MEDS ORDERED: ICU - MAGNESIUM SULFATE 4 GM/NS 100 ML IV PRN ×2 (04:15)
[2017-09-06] MEDS ORDERED: ICU - POTASSIUM CHLORIDE/AQUEOUS SOLN 20 MEQ/100 ML IVPB IV PRN (04:15)
[2017-09-06] MEDS ORDERED: ICU - D/C ICU ELECTROLYTE ORDERS PRN (04:15)
[2017-09-06] MEDS ORDERED: POTASSIUM CHLORIDE 25 MEQ EFFERVESCENT TAB PO PRN (04:15)
[2017-09-06] MEDS ORDERED: ICU - POTASSIUM PHOSPHATE MONOBASIC 500 MG TAB PO PRN (04:15)
[2017-09-06] MEDS ORDERED: ICU - CALL ORDERING PHYSICIAN PRN (04:15)
[2017-09-06] MEDS ORDERED: ICU - SODIUM PHOSPHATE 30 MMOL/NS 250 ML IV PRN ×2 (04:15)
[2017-09-06] MEDS ORDERED: ICU - POTASSIUM PHOSPHATE 30 MMOL/NS 250 ML IV PRN ×2 (04:15)
[2017-09-06] MEDS ORDERED: ICU - MAGNESIUM OXIDE 400 MG TAB PO PRN (04:15)
[2017-09-06] MEDS ORDERED: ICU - MAGNESIUM SULFATE 2 GM/NS 100 ML IV PRN ×2 (04:15)
[2017-09-06] MEDS: SODIUM CHLOR 0.9% 1000 ML INJ 1,000 ML IV SCH ×2 (04:38→12:56)
[2017-09-06] MEDS: ICU - POTASSIUM CHLORIDE/AQUEOUS SOLN 40 MEQ/100 ML IVPB IV PRN ×2 (04:38→18:50)
[2017-09-06 05:04] LABS: BANDS 7 % (0-6); CORRECTED NUCLEATED RBC 1 /100 WBC (0-0); LYMPHOCYTES 4 % (9-44); MONOCYTES 6 % (0-8); NEUTROPHIL # MANUAL DIFF 12.4 TH/MM3 (1.8-7.7); NUCLEATED RED BLOOD CELL 1 (0-0); POLYS (SEG NEUTROPHILS) 82 % (16-70)
[2017-09-06 05:06] LABS: DOHLE BODIES PRESENT (NONE SEEN)
--- NOTE | 2017-09-06 06:02 | RADRPT ---
EXAM DATE/TIME: 09/06/2017 05:15 [place] COMPARISON: CHEST SINGLE AP, September 04, 2017, 3:33. INDICATIONS : Respiratory distress. MEDICAL HISTORY : Myocardial infarction. Congestive heart failure. Hypertension. SURGICAL HISTORY : Mitral valve replacement. ENCOUNTER: Subsequent ACUITY: 4 - 6 days PAIN SCORE: Non-responsive. LOCATION: Bilateral chest FINDINGS: A single view of the chest demonstrates cardiomegaly with heart valve replacement. Left-sided pacemak er. Bilateral airspace disease. Endotracheal tube and nasogastric tube are unchanged. Right subclavi an central line also unchanged in position. Osseous structures are intact. CONCLUSION: Bilateral airspace disease not significantly changed. Tunde Landaverde MD on September 06, 2017 at 5:59 Board Certified Radiologist. This report was verified electronically.
[2017-09-06] MEDS: MIDAZOLAM 100 MG/100 ML INJ 100 ML IV PRN ×2 (06:48→20:44)
[2017-09-06] MEDS: SODIUM CHLORIDE 0.9% FLUSH 10 ML FLUSH IV FLUSH SCH ×2 (08:04→20:09)
[2017-09-06] MEDS: PANTOPRAZOLE SODIUM 40 MG VIAL IV PUSH SCH ×2 (08:04→20:08)
[2017-09-06] MEDS: FUROSEMIDE 20 MG/2 ML VIAL IV PUSH SCH (08:04)
[2017-09-06] MEDS: REMOVE OLD PATCH T-DERMAL SCH (08:05)
[2017-09-06] MEDS: DULoxetine HCl DR 30 MG CAP PO SCH (08:05)
[2017-09-06] MEDS: ARIPiprazole 5 MG TAB PO SCH ×2 (08:05→20:08)
[2017-09-06] MEDS: NICOTINE 14 MG/24 HR PATCH T-DERMAL SCH (08:05)
[2017-09-06] MEDS: DOCUSATE SODIUM 50 MG/SENNA 8.6 MG TAB PO SCH ×2 (08:05→20:08)
--- NOTE | 2017-09-06 09:21 | HHI.PR ---
cc: Joel Watson MD Subjective Subjective Notes DAILY PROGRESS NOTE FOR SURGICAL ATTENDING, DR. JOEL WATSON On ventilator Discussed with Dr. Courtney Objective Vitals/I&O Vital Signs Date Time Temp Pulse Resp B/P (MAP) Pulse Ox O2 Delivery O2 Flow Rate FiO2 09/06/17 06:00 82 09/06/17 04:22 98 50 09/06/17 04:00 99.5 12 96/50 (65) 09/05/17 09:47 Ventilator 09/03/17 01:50 4.00 Labs Laboratory Tests Test 09/06/17 01:50 White Blood Count 13.9 Red Blood Count 3.06 Hemoglobin 9.0 Hematocrit 27.7 Mean Corpuscular Volume 90.5 Mean Corpuscular Hemoglobin 29.5 Mean Corpuscular Hemoglobin Concent 32.6 Red Cell Distribution Width 18.4 Platelet Count 115 Mean Platelet Volume 7.0 CBC Comment AUTO DIFF Differential Total Cells Counted 100 Neutrophils % (Manual) 82 Band Neutrophils % 7 Lymphocytes % 4 Monocytes % 6 Eosinophils % 1 Neutrophils # (Manual) 12.4 Nucleated Red Blood Cells 1 Differential Comment FINAL DIFF MANUAL Dohle Bodies PRESENT Platelet Estimate LOW Platelet Morphology Comment NORMAL Red Cell Morphology Comment NORMAL Prothrombin Time 13.1 Prothromb Time International Ratio 1.3 Activated Partial Thromboplast Time 41.5 Blood Urea Nitrogen 35 Creatinine 1.43 Random Glucose 97 Total Protein 4.5 Albumin 1.6 Calcium Level 7.7 Alkaline Phosphatase 85 Aspartate Amino Transf (AST/SGOT) 50 Alanine Aminotransferase (ALT/SGPT) 42 Total Bilirubin 0.4 Sodium Level 148 Potassium Level 3.3 Chloride Level 114 Carbon Dioxide Level 27.6 Anion Gap 6 Estimat Glomerular Filtration Rate 55 Date/Time Source Procedure Growth Status 09/03/17 19:20 Blood Peripheral Aerobic Blood Culture - Preliminary NO GROWTH IN 2 DAYS Resulted 09/03/17 19:20 Blood Peripheral Anaerobic Blood Culture - Preliminary NO GROWTH IN 2 DAYS Resulted Radiology Last Impressions Chest X-Ray 09/04/17 0600 Signed Impressions: Service Date/Time: Monday, September 04, 2017 03:33 - CONCLUSION: 1. No significant change. Armen Rodriguez MD Abdomen X-Ray 09/02/17 1654 Signed Impressions: Service Date/Time: Saturday, September 02, 2017 17:47 - CONCLUSION: 1. Probable free intraperitoneal air. Further evaluation with abdomen and pelvic CT recommended. Joel Garcia MD Abdomen/Pelvis CT 09/01/17 0559 Signed Impressions: Service Date/Time: August 07:15 - CONCLUSION: Nonspecific free peritoneal fluid. No acute focal abnormalities. Juan Rivera MD Chest CT 09/01/17 0000 Signed Impressions: Service Date/Time: August 07:15 - CONCLUSION: No acute CT findings of the chest Juan Rivera MD Cardiovascular: Regular Lungs: Clear, Other (vent) Abdomen: Other (tolerating tube feeds) Extremities: Perfused, SCD's on Narrative Exam alexi clear drainage decreasing Wound Wound : Wound Location: Abdomen Appearance: Clean & Dry Dressing: Dry A/P Problem List: (1) Status post exploratory laparotomy ICD Codes: Z98.890 - Other specified postprocedural states Status: Acute (2) Duodenal ulcer perforation ICD Codes: K26.5 - Chronic or unspecified duodenal ulcer with perforation Status: Chronic (3) Duodenal ulcer with perforation ICD Codes: K26.5 - Chronic or unspecified duodenal ulcer with perforation Status: Chronic (4) H/O hypertrophic cardiomyopathy ICD Codes: Z86.79 - Personal history of other diseases of the circulatory system Status: Chronic (5) Perforation of duodenal ulcer ICD Codes: K26.5 - Chronic or unspecified duodenal ulcer with perforation Status: Acute (6) Anemia ICD Codes: D64.9 - Anemia, unspecified Status: Acute (7) GI bleed ICD Codes: K92.2 - Gastrointestinal hemorrhage, unspecified Status: Acute (8) AICD (automatic cardioverter/defibrillator) present ICD Codes: Z95.810 - AICD (automatic cardioverter/defibrillator) present Status: Chronic (9) S/P MVR (mitral valve replacement) ICD Codes: Z95.4 - S/P MVR (mitral valve replacement) Status: Chronic Permanent Comment: Need prophyllaxis - Due to endocarditis Last Edited By: Ozzy Edwards on May 26, 2014 13:06 (10) H/O mitral valve replacement with mechanical valve ICD Codes: Z95.2 - Presence of prosthetic heart valve Status: Chronic (11) Malnutrition ICD Codes: E46 - Unspecified protein-calorie malnutrition Status: Chronic (12) Serum albumin decreased ICD Codes: E88.09 - Other disorders of plasma-protein metabolism, not elsewhere classified Status: Chronic (13) Chronic anticoagulation 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 ramírez Start to mobilize fluid Increase tube feeds as tolerated Wean from ventilator as tolerated Okay to start anticoagulation Attending Statement NOTE FOR SURGICAL ATTENDING, DR. JOEL WATSON I attest that I had a [id number] encounter with the patient on the same day, and personally performed and documented my assessment and findings in the medical record. The following services were provided during this hospital visit: Chart data review, vital sign assessments/reviewing monitor data Review of consultations notes if present. Medication orders/review and/or management Ordering and/or reviewing lab tests Ordering and/or interpreting/reviewing x-rays and/or diagnostic studies Care of the patient and discussion of the patient with the care team Documentation time To help prompt me to consider important information that might be impacting today's encounter and assessment, information from prior notes written by myself or my colleagues may have been "brought forward/copy and pasted" into today's note. Problem Qualifiers (1) Anemia: Qualified Codes: D62 - Acute posthemorrhagic anemia (2) GI bleed: Qualified Codes: K26.4 - Chronic or unspecified duodenal ulcer with hemorrhage (3) Malnutrition: Joel Watson MD Sep 06, 2017 09:21
--- NOTE | 2017-09-06 14:35 | HHI.IDPN ---
Subjective Subjective Remarks pt is febrile, low grade Temp is 100.1 On vent , PEEP 10, FiO2 50% + increased secretions WBC also increasing Antibiotics fluconazole zosyn Allergies: Coded Allergies: haloperidol (Unverified Allergy, Severe, DYSTONIC REACTION, 09/01/17) lorazepam (Unverified Allergy, Severe, SEVERE AGITATION, 09/01/17) promethazine (Unverified Allergy, Severe, SEVERE AGITATION, 09/01/17) zolpidem (Unverified Allergy, Severe, severe agitation, 09/01/17) Objective . Vital Signs Date Time Temp Pulse Resp B/P (MAP) Pulse Ox O2 Delivery O2 Flow Rate FiO2 09/06/17 13:02 100 50 09/06/17 12:00 84 09/06/17 12:00 50 09/06/17 12:00 100.1 84 16 112/56 (74) 100 09/06/17 10:00 82 09/06/17 09:20 100 50 09/06/17 09:20 100 Ventilator 50 09/06/17 08:00 76 09/06/17 08:00 50 09/06/17 08:00 99.8 76 16 102/55 (71) 100 09/06/17 06:00 82 09/06/17 04:22 98 50 09/06/17 04:00 50 09/06/17 04:00 87 09/06/17 04:00 99.5 99 12 96/50 (65) 97 09/06/17 02:00 98 09/06/17 01:38 98 60 09/06/17 00:00 60 09/06/17 00:00 99.9 99 17 89/51 (64) 97 09/05/17 22:00 100 09/05/17 20:11 99 60 09/05/17 20:00 89 09/05/17 20:00 99.6 89 16 94/46 (62) 100 09/05/17 20:00 89 09/05/17 20:00 60 09/05/17 20:00 70 09/05/17 18:00 67 09/05/17 16:00 98.2 65 16 109/59 (76) 100 09/05/17 16:00 65 09/05/17 16:00 70 . Laboratory Tests Test 09/05/17 04:05 09/06/17 01:50 White Blood Count 9.9 TH/MM3 13.9 TH/MM3 Red Blood Count 3.05 MIL/MM3 3.06 MIL/MM3 Hemoglobin 9.3 GM/DL 9.0 GM/DL Hematocrit 27.8 % 27.7 % Mean Corpuscular Volume 91.4 FL 90.5 FL Mean Corpuscular Hemoglobin 30.5 PG 29.5 PG Mean Corpuscular Hemoglobin Concent 33.4 % 32.6 % Red Cell Distribution Width 19.2 % 18.4 % Platelet Count 112 TH/MM3 115 TH/MM3 Mean Platelet Volume 7.4 FL 7.0 FL Neutrophils (%) (Auto) 88.2 % Lymphocytes (%) (Auto) 3.3 % Monocytes (%) (Auto) 6.7 % Eosinophils (%) (Auto) 1.5 % Basophils (%) (Auto) 0.3 % Neutrophils # (Auto) 8.7 TH/MM3 Lymphocytes # (Auto) 0.3 TH/MM3 Monocytes # (Auto) 0.7 TH/MM3 Eosinophils # (Auto) 0.2 TH/MM3 Basophils # (Auto) 0.0 TH/MM3 CBC Comment DIFF FINAL AUTO DIFF Differential Comment FINAL DIFF MANUAL Differential Total Cells Counted 100 Neutrophils % (Manual) 82 % Band Neutrophils % 7 % Lymphocytes % 4 % Monocytes % 6 % Eosinophils % 1 % Neutrophils # (Manual) 12.4 TH/MM3 Nucleated Red Blood Cells 1 /100 WBC Dohle Bodies PRESENT Platelet Estimate LOW Platelet Morphology Comment NORMAL Red Cell Morphology Comment NORMAL Laboratory Tests Test 09/05/17 04:05 09/06/17 01:50 09/06/17 13:50 Blood Urea Nitrogen 39 MG/DL 35 MG/DL Creatinine 1.52 MG/DL 1.43 MG/DL Random Glucose 122 MG/DL 97 MG/DL Total Protein 4.8 GM/DL 4.5 GM/DL Albumin 1.7 GM/DL 1.6 GM/DL Calcium Level 7.7 MG/DL 7.7 MG/DL Phosphorus Level 3.0 MG/DL Magnesium Level 2.3 MG/DL Alkaline Phosphatase 75 U/L 85 U/L Aspartate Amino Transf (AST/SGOT) 80 U/L 50 U/L Alanine Aminotransferase (ALT/SGPT) 47 U/L 42 U/L Total Bilirubin 0.6 MG/DL 0.4 MG/DL Sodium Level 146 MEQ/L 148 MEQ/L Potassium Level 3.8 MEQ/L 3.3 MEQ/L Chloride Level 114 MEQ/L 114 MEQ/L Carbon Dioxide Level 24.4 MEQ/L 27.6 MEQ/L Anion Gap 8 MEQ/L 6 MEQ/L Estimat Glomerular Filtration Rate 51 ML/MIN 55 ML/MIN Microbiology Date/Time Source Procedure Growth Status 09/03/17 19:20 Blood Peripheral Aerobic Blood Culture - Preliminary NO GROWTH IN 3 DAYS Resulted 09/03/17 19:20 Blood Peripheral Anaerobic Blood Culture - Preliminary NO GROWTH IN 3 DAYS Resulted 09/03/17 19:10 Blood Peripheral Aerobic Blood Culture - Preliminary NO GROWTH IN 3 DAYS Resulted 09/03/17 19:10 Blood Peripheral Anaerobic Blood Culture - Preliminary NO GROWTH IN 3 DAYS Resulted Imaging Last Impressions Chest X-Ray 09/06/17 0600 Signed Impressions: Service Date/Time: Wednesday, September 06, 2017 05:15 - CONCLUSION: Bilateral airspace disease not significantly changed. Tunde Landaverde MD Abdomen X-Ray 09/02/17 1654 Signed Impressions: Service Date/Time: Saturday, September 02, 2017 17:47 - CONCLUSION: 1. Probable free intraperitoneal air. Further evaluation with abdomen and pelvic CT recommended. Joel Garcia MD Abdomen/Pelvis CT 09/01/17 0559 Signed Impressions: Service Date/Time: August 07:15 - CONCLUSION: Nonspecific free peritoneal fluid. No acute focal abnormalities. Juan Rivera MD Chest CT 09/01/17 0000 Signed Impressions: Service Date/Time: August 07:15 - CONCLUSION: No acute CT findings of the chest Juan Rivera MD Physical Exam CONSTITUTIONAL/GENERAL: This is an adequately nourished patient, in no apparent distress. Sedated intubated, on vent TUBES/LINES/DRAINS: SKIN: No jaundice, rashes, or lesions. Skin temperature appropriate. Not diaphoretic. EYES: Pupils equal and round and reactive. Extraocular motions intact. No scleral icterus. No injection or drainage. Fundi not examined. NECK: Trachea midline. Supple, nontender. No palpable thyroid enlargement or nodularity. CARDIOVASCULAR: Regular rate and rhythm without murmurs, gallops, or rubs. Mechanical saini sounds No JVD. Peripheral pulses symmetric. RESPIRATORY/CHEST: Symmetric, unlabored respirations. Clear to auscultation. Breath sounds equal bilaterally. No wheezes, rales, or rhonchi. GASTROINTESTINAL: Abdomen soft, non-tender, nondistended. No hepato-splenomegaly , or palpable masses. No guarding. Bowel sounds abscent Dressing in place with some staining BS very hypoactive GENITOURINARY: Without palpable bladder distension. Donaldson catheter in place with yellow urine MUSCULOSKELETAL: Extremities without clubbing, cyanosis, + mild edema. No joint tenderness or effusion noted. No calf tenderness. No mottling or clubbing. NEUROLOGICAL:Sedated, not following PSYCHIATRIC: unable to assess Assessment & Plan Remarks Perforated duodenal ulcer with massive contamination. Sepsis (bandemia, hemodynamic instability acute VDRF and ARF) Sp prosthetic mech valve Remote h/o endocarditis acute VDRF cont zosyn, fluconazole chk sputum clx chk CXR Melanie Mohan MD Sep 06, 2017 14:35
--- NOTE | 2017-09-06 16:34 | HHI.CCPN ---
Subjective Remarks/Hospital Course 09/02: 41-year-old male who presented to [facility] on 09/01/2017 after having episodes of coffee-ground emesis. The patient has had some sternotomy pain and chronic back pain, and so he was told to take Mobic twice a day. He started getting nauseous. After this, he started having coffee ground emesis. He underwent endoscopy examination by Dr. Frazier when he became clinically unstable and his abdomen became rock hard. He was emergently transferred to operating room where he underwent Exploratory laparotomy, Jay patch of a 1 cm duodenal ulcer with duodenal ulcer repair, placement of drain at the duodenum, feeding jejunostomy tube placement and abdominal washout by Drs. Varma and Shirley. Postprocedure he was transferred to intensive care unit where he was weaned off the mechanical ventilation and extubated following CPAP trial, however his respiration became more labored, patient became hypoxemic and respiratory distress requiring reintubation and continue mechanical ventilation. 09/03: He remains intubated and sedated. Currently he is on norepinephrine for BP support at 8 mcg/minute. FiO2 down to 45%. Sedation currently achieved with midazolam, propofol and fentanyl infusions. Urine output is low, T-max 99.3. No family present at bedside. Morning chest x-ray reviewed, ET tube in place, right subclavian central line, pulmonary vascular congestion, possible retrocardiac infiltrate. 09/04: Patient did well over the night. Norepinephrine is off. Current heart rate in the 70s. Propofol was stopped, and fentanyl and midazolam infusions. Patient becomes easily agitated with stimulation moving all extremities but that does not follow any commands. T-max of 98.8. I/O 2241/1550. 09/05: Remains sedated, orally intubated on mechanical ventilation. On J-tube feeds at 20 cc per hour. FiO2 70% PEEP increased to +10 09/06: Remains sedated, orally intubated on mechanical ventilation. FiO2 50%, PEEP +10. Being diuresed. Tolerating J-tube feeds which are being advanced. Objective Vital Signs Date Time Temp Pulse Resp B/P (MAP) Pulse Ox O2 Delivery O2 Flow Rate FiO2 09/06/17 13:02 100 50 09/06/17 12:00 84 09/06/17 12:00 100.1 16 112/56 (74) 09/06/17 09:20 Ventilator 09/03/17 01:50 4.00 Intake and Output 09/06/17 09/06/17 09/07/17 08:00 16:00 00:00 Output Total 835 ml Balance -835 ml Result Diagram: 09/06/17 0150 09/06/17 1350 Imaging Last 24 hours Impressions Abdomen X-Ray 09/02/17 1654 Signed Impressions: Service Date/Time: Saturday, September 02, 2017 17:47 - CONCLUSION: 1. Probable free intraperitoneal air. Further evaluation with abdomen and pelvic CT recommended. Joel Garcia MD Last 24 hours Impressions Abdomen X-Ray 09/02/17 1654 Signed Impressions: Service Date/Time: Saturday, September 02, 2017 17:47 - CONCLUSION: 1. Probable free intraperitoneal air. Further evaluation with abdomen and pelvic CT recommended. Joel Garcia MD Procedures None Objective Remarks General - middle-aged gentleman, intubated and sedated, ill-appearing HEENT - pupils are equal and reactive, sclerae are anicteric, neck is supple, no rigidity, no JVD, no carotid bruit, orally intubated, + NGT CV - regular heart sounds, metallic valve closure click Chest - scattered coarse breath sounds b/l, good air entry, no wheezes Abdomen - soft, non-distended, mildly tender, BS decreased, dressing over the surgical site -clean, J tube in place Skin - no rashes, no cyanosis Extremities - warm and well perfused, no edema, + peripheral pulses, no clubbing Neuro - intubated, sedated, moving all extremities A/P Assessment and Plan 1. Septic shock -currently off pressors 2. Perforated duodenal ulcer with peritonitis s/p exploratory laparotomy with abdominal washout, Jay patch repair and placement of feeding jejunostomy, POD 3 3. Acute hypoxic respiratory failure -0.5 FiO2 and PEEP 10 4. Upper GI bleed 5. Acute blood loss anemia secondary to above -hemoglobin slowly trending 6. History of mechanical mitral valve replacement ([employer] bileaflet, for previous endocarditis) 7. History of hypertrophic cardiomyopathy, status post septal myomectomy 8. JOHNNY -creatinine slowly improving, urine output is adequate Plan 1. Continue sedation with daily sedation vacation. 2. Continue antibiotics per ID 3. Continue PRVC FiO2 70%, PEEP increased to +10 4. Vent bundle and bronchodilators 5. Hold off on SBT till FiO2 and PEEP requirement decreases 6. Continue beta-vannessa. Avoid tachycardia. If pressors needed we will start phenylephrine and vaso 7. PPI twice daily 8. GI and surgery following 9. Continue heparin GTT for anticoagulation for mechanical mitral valve. Being diuresed to mobilize fluid. 10. DVT prophylaxis with SCDs and GI prophylaxis addressed above D/W Dr. Watson. No family present at bedside. Time spent on critical care excluding procedures 35 minutes Travis Courtney MD Sep 06, 2017 16:34
[2017-09-06] MEDS: HEPARIN-D5W 25,000 U/250 ML 250 ML IV PRN (18:48)
[2017-09-06] MEDS: FLUCONAZOLE 400 MG PREMIX BAG 200 ML IV SCH (18:48)
--- NOTE | 2017-09-06 22:02 | PD.CARD.PN ---
Subjective Subjective Remarks Patient was seen this afternoon, late entry note Currently intubated Objective Medications Current Medications Medications (Trade) Dose Ordered Sig/Khushboo Route Start Time Stop Time Status Last Admin (Protonix Inj) 40 mg Q12HR IV PUSH 09/01/17 09:30 09/06/17 20:08 (NS Flush) 2 ml UNSCH PRN IV FLUSH 09/01/17 09:30 (NS Flush) 2 ml BID IV FLUSH 09/01/17 21:00 09/06/17 20:09 (Tylenol) 650 mg Q4H PRN PO 09/01/17 09:30 (Zofran Inj) 4 mg Q6H PRN IVP 09/01/17 09:30 (Tylenol) 650 mg Q6H PRN PO 09/01/17 09:30 (Morphine Inj) 2 mg Q3H PRN IV PUSH 09/01/17 09:30 09/02/17 12:28 (Morphine Inj) 4 mg Q3H PRN IV PUSH 09/01/17 09:30 09/05/17 04:45 (Narcan Inj) 0.4 mg UNSCH PRN IV PUSH 09/01/17 09:30 (Ronda-Colace) 1 tab BID PO 09/01/17 21:00 09/06/17 20:08 (Milk Of Magnesia Liq) 30 ml Q12H PRN PO 09/01/17 09:30 (Senokot) 17.2 mg Q12H PRN PO 09/01/17 09:30 (Dulcolax Supp) 10 mg DAILY PRN RECTAL 09/01/17 09:30 (Lactulose Liq) 30 ml DAILY PRN PO 09/01/17 09:30 (Morphine Inj) 4 mg Q3H PRN IV PUSH 09/01/17 10:15 Miscellaneous Information 1 DAILY T-DERMAL 09/02/17 09:00 09/06/17 08:05 (Habitrol 14 Mg Patch.24 Hr) 1 patch DAILY T-DERMAL 09/02/17 09:00 09/06/17 08:05 (Abilify) 5 mg BID PO 09/01/17 21:00 09/06/17 20:08 (Cymbalta Dr) 30 mg DAILY PO 09/01/17 11:45 09/06/17 08:05 (KlonoPIN) 0.5 mg Q8HR PRN PO 09/01/17 20:45 09/02/17 12:46 Sodium Chloride 1,000 ml @ 100 mls/hr Q10H IV 09/02/17 20:00 09/06/17 12:56 Fluconazole/ Sodium Chloride 200 ml @ 100 mls/hr Q24H IV 09/03/17 18:00 09/06/17 18:48 Propofol 100 ml @ 1.98 mls/hr TITRATE PRN IV 09/02/17 20:30 09/05/17 20:17 Norepinephrine Bitartrate 250 ml @ 7.5 mls/hr TITRATE PRN IV 09/02/17 20:30 09/03/17 18:47 Fentanyl Citrate 250 ml @ 5 mls/hr TITRATE PRN IV 09/03/17 01:00 09/06/17 12:51 Midazolam HCl 100 ml @ 2 mls/hr TITRATE PRN IV 09/03/17 01:00 09/06/17 20:44 Piperacillin Sod/ Tazobactam Sod 50 ml @ 100 mls/hr Q6H IV 09/03/17 14:00 09/06/17 20:08 Dexmedetomidine HCl 1000 mcg/ Sodium Chloride 250 ml @ 3.77 mls/hr TITRATE PRN IV 09/04/17 12:30 09/05/17 01:00 (Heparin Inj) 5,000 units UNSCH PRN IV PUSH 09/04/17 20:30 (Heparin Inj) 2,500 units UNSCH PRN IV PUSH 09/04/17 20:30 Heparin Sodium/ Dextrose 250 ml @ 9 mls/hr TITRATE PRN IV 09/04/17 14:30 09/06/17 18:48 Miscellaneous Information D/C ICU ELECTROLYTE ORDERS... UNSCH PRN .XX 09/06/17 04:15 Miscellaneous Information ICU - CALL ORDERING PHYSIC... UNSCH PRN .XX 09/06/17 04:15 Potassium Chloride 100 ml @ 25 mls/hr UNSCH PRN IV 09/06/17 04:15 09/06/17 18:50 (K-Lyte Cl Eff) 50 meq UNSCH PRN PO 09/06/17 04:15 Potassium Chloride 100 ml @ 50 mls/hr UNSCH PRN IV 09/06/17 04:15 Magnesium Sulfate 4 gm/Sodium Chloride 108 ml @ 54 mls/hr UNSCH PRN IV 09/06/17 04:15 Magnesium Sulfate 2 gm/Sodium Chloride 104 ml @ 52 mls/hr UNSCH PRN IV 09/06/17 04:15 (Mag-Ox) 800 mg UNSCH PRN PO 09/06/17 04:15 Sodium Phosphate 30 mmol/Sodium Chloride 260 ml @ 43.333 mls/ hr UNSCH PRN IV 09/06/17 04:15 (K-Phos) 2,000 mg UNSCH PRN PO 09/06/17 04:15 Potassium Phosphate 30 mmol/ Sodium Chloride 260 ml @ 43.333 mls/ hr UNSCH PRN IV 09/06/17 04:15 (Lasix Inj) 20 mg DAILY IV PUSH 09/06/17 09:00 09/06/17 08:04 Vital Signs / I&O Vital Signs Date Time Temp Pulse Resp B/P (MAP) Pulse Ox O2 Delivery O2 Flow Rate FiO2 09/06/17 20:00 99.5 82 16 102/65 (77) 100 09/06/17 20:00 82 09/06/17 20:00 40 09/06/17 18:19 100 40 09/06/17 18:00 90 09/06/17 16:00 50 09/06/17 16:00 100.3 78 16 118/62 (80) 100 09/06/17 16:00 78 09/06/17 14:00 80 09/06/17 13:02 100 50 09/06/17 12:00 84 09/06/17 12:00 50 09/06/17 12:00 100.1 84 16 112/56 (74) 100 09/06/17 10:00 82 09/06/17 09:20 100 50 09/06/17 09:20 100 Ventilator 50 09/06/17 08:00 76 09/06/17 08:00 50 09/06/17 08:00 99.8 76 16 102/55 (71) 100 09/06/17 06:00 82 09/06/17 04:22 98 50 09/06/17 04:00 50 09/06/17 04:00 87 09/06/17 04:00 99.5 99 12 96/50 (65) 97 09/06/17 02:00 98 09/06/17 01:38 98 60 09/06/17 00:00 60 09/06/17 00:00 99.9 99 17 89/51 (06) 97 I/O 09/05/17 09/05/17 09/05/17 09/06/17 09/06/17 09/06/17 07:00 15:00 23:00 07:00 15:00 23:00 Intake Total 772 ml 2057 ml 358 ml Output Total 690 ml 1420 ml 835 ml 1855 ml Balance 82 ml 637 ml -835 ml -1497 ml IV Total 550 ml 1800 ml Tube Feeding 222 ml 227 ml 298 ml Tube Irrigant 30 ml 60 ml Output Urine Total 350 ml 1300 ml 750 ml 1700 ml Gastric Drainage Total 300 ml 100 ml 50 ml 75 ml Drainage Total 40 ml 20 ml 35 ml 80 ml # Bowel Movements 0 0 Physical Exam GENERAL: Intubated and sedated SKIN: Warm and dry. HEAD: Atraumatic. Normocephalic. EYES: Pupils equal and round. No scleral icterus. No injection or drainage. ENT: No nasal bleeding or discharge. Mucous membranes pink and moist. NECK: Trachea midline. No JVD. CARDIOVASCULAR: Regular rate and rhythm. 1/6 creascendo-decrescendo murmur to the RSB, mechanical click noted RESPIRATORY: No accessory muscle use. Clear to auscultation. Breath sounds equal bilaterally. GASTROINTESTINAL: Abdomen soft, non-tender, nondistended. Hepatic and splenic margins not palpable. MUSCULOSKELETAL: Extremities without clubbing, cyanosis, or edema. No obvious deformities. NEUROLOGICAL: Intubated and sedated Laboratory Laboratory Tests Test 09/06/17 01:50 09/06/17 13:50 White Blood Count 13.9 TH/MM3 Red Blood Count 3.06 MIL/MM3 Hemoglobin 9.0 GM/DL Hematocrit 27.7 % Mean Corpuscular Volume 90.5 FL Mean Corpuscular Hemoglobin 29.5 PG Mean Corpuscular Hemoglobin Concent 32.6 % Red Cell Distribution Width 18.4 % Platelet Count 115 TH/MM3 Mean Platelet Volume 7.0 FL CBC Comment AUTO DIFF Differential Total Cells Counted 100 Neutrophils % (Manual) 82 % Band Neutrophils % 7 % Lymphocytes % 4 % Monocytes % 6 % Eosinophils % 1 % Neutrophils # (Manual) 12.4 TH/MM3 Nucleated Red Blood Cells 1 /100 WBC Differential Comment FINAL DIFF MANUAL Dohle Bodies PRESENT Platelet Estimate LOW Platelet Morphology Comment NORMAL Red Cell Morphology Comment NORMAL Prothrombin Time 13.1 SEC Prothromb Time International Ratio 1.3 RATIO Activated Partial Thromboplast Time 41.5 SEC Blood Urea Nitrogen 35 MG/DL Creatinine 1.43 MG/DL Random Glucose 97 MG/DL Total Protein 4.5 GM/DL Albumin 1.6 GM/DL Calcium Level 7.7 MG/DL Alkaline Phosphatase 85 U/L Aspartate Amino Transf (AST/SGOT) 50 U/L Alanine Aminotransferase (ALT/SGPT) 42 U/L Total Bilirubin 0.4 MG/DL Sodium Level 148 MEQ/L Potassium Level 3.3 MEQ/L 3.5 MEQ/L Chloride Level 114 MEQ/L Carbon Dioxide Level 27.6 MEQ/L Anion Gap 6 MEQ/L Estimat Glomerular Filtration Rate 55 ML/MIN Imaging Last 24 hours Impressions Chest X-Ray 09/06/17 0600 Signed Impressions: Service Date/Time: Wednesday, September 06, 2017 05:15 - CONCLUSION: Bilateral airspace disease not significantly changed. Tunde Landaverde MD Assessment and Plan Problem List: (1) Familial hypertrophic cardiomyopathy ICD Codes: I42.2 - Other hypertrophic cardiomyopathy (2) H/O hypertrophic cardiomyopathy ICD Codes: Z86.79 - Personal history of other diseases of the circulatory system Status: Chronic (3) H/O mitral valve replacement with mechanical valve ICD Codes: Z95.2 - Presence of prosthetic heart valve Status: Chronic (4) GI bleed ICD Codes: K92.2 - Gastrointestinal hemorrhage, unspecified Status: Acute (5) S/P MVR (mitral valve replacement) ICD Codes: Z95.4 - S/P MVR (mitral valve replacement) Status: Chronic Permanent Comment: Need prophyllaxis - Due to endocarditis Last Edited By: Ozzy Edwards on May 26, 2014 13:06 (6) Congestive heart failure ICD Codes: I50.9 - Congestive heart failure Status: Acute (7) History of endocarditis ICD Codes: Z86.79 - History of endocarditis Status: Acute (8) AICD (automatic cardioverter/defibrillator) present ICD Codes: Z95.810 - AICD (automatic cardioverter/defibrillator) present Status: Chronic Assessment and Plan 1) EGD with perforation s/p Jay patch 2) Mechanical mitral valve Restarted on Heparin drip No signs of bleeding 3) Hx HOCM Previous septal myectomy Normal ejection fraction on echo, no gradient noted from previous HOCM s/p septal myectomy 4) GI Bleed Most likely secondary to NSAID use 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 Problem Qualifiers (1) GI bleed: Qualified Codes: K26.4 - Chronic or unspecified duodenal ulcer with hemorrhage Angelo Cabrales DO Sep 06, 2017 22:02
[2017-09-07] VITALS (18 sets, daily range): BP systolic 92–111; BP diastolic 54–68; PULSE 73–112; RESP 16; TEMP 98.9–100.8; O2SAT 97–100
[2017-09-07] MEDS: PIPERACIL-TAZO 3.375 GM PREMIX 50 ML IV SCH ×4 (01:31→21:02)
[2017-09-07] MEDS: SODIUM CHLOR 0.9% 1000 ML INJ 1,000 ML IV SCH ×2 (01:31→10:00)
[2017-09-07] MEDS: MORPHINE SULFATE 4 MG/ML INJ IV PUSH PRN (04:56)
[2017-09-07] MEDS: PROPOFOL 1000 MG/100 ML IV PRN (05:11)
[2017-09-07 06:24] LABS: HEMATOCRIT 29.8 % (39.0-51.0); HEMOGLOBIN 9.5 GM/DL (13.0-17.0); MEAN CELL VOLUME 92.3 FL (80.0-100.0); MEAN CORPUSCULAR HEMOGLOBIN 29.6 PG (27.0-34.0); MEAN PLATELET VOLUME 7.2 FL (7.0-11.0); PLATELET COUNT 117 TH/MM3 (150-450); RED BLOOD COUNT 3.23 MIL/MM3 (4.50-5.90); WHITE BLOOD COUNT 18.3 TH/MM3 (4.0-11.0)
[2017-09-07 06:37] LABS: INTERNATIONAL NORMALIZED RATIO 1.3 RATIO; PROTHROMBIN TIME - PATIENT 12.7 SEC (9.8-11.6)
[2017-09-07] MEDS: REMOVE OLD PATCH T-DERMAL SCH (09:00)
[2017-09-07] MEDS: SODIUM CHLORIDE 0.9% FLUSH 10 ML FLUSH IV FLUSH SCH ×2 (09:00→21:03)
[2017-09-07] MEDS: PANTOPRAZOLE SODIUM 40 MG VIAL IV PUSH SCH ×2 (09:22→21:03)
[2017-09-07] MEDS: FUROSEMIDE 20 MG/2 ML VIAL IV PUSH SCH (09:22)
[2017-09-07] MEDS: DOCUSATE SODIUM 50 MG/SENNA 8.6 MG TAB PO SCH (09:24)
[2017-09-07] MEDS: ARIPiprazole 5 MG TAB PO SCH ×2 (09:24→21:02)
[2017-09-07] MEDS: DULoxetine HCl DR 30 MG CAP PO SCH (09:24)
--- NOTE | 2017-09-07 09:58 | HHI.PR ---
cc: Joel Watson MD Subjective Subjective Notes DAILY PROGRESS NOTE FOR SURGICAL ATTENDING, DR. JOEL WATSON Intubated/Sedated Objective Vitals/I&O Vital Signs Date Time Temp Pulse Resp B/P (MAP) Pulse Ox O2 Delivery O2 Flow Rate FiO2 09/07/17 07:57 99 40 09/07/17 06:00 112 09/07/17 04:00 99.8 16 106/64 (78) 09/06/17 09:20 Ventilator Labs Laboratory Tests Test 09/06/17 13:50 09/07/17 06:00 Potassium Level 3.5 White Blood Count 18.3 Red Blood Count 3.23 Hemoglobin 9.5 Hematocrit 29.8 Mean Corpuscular Volume 92.3 Mean Corpuscular Hemoglobin 29.6 Mean Corpuscular Hemoglobin Concent 32.0 Red Cell Distribution Width 19.0 Platelet Count 117 Mean Platelet Volume 7.2 Prothrombin Time 12.7 Prothromb Time International Ratio 1.3 Activated Partial Thromboplast Time 32.0 Date/Time Source Procedure Growth Status 09/03/17 19:20 Blood Peripheral Aerobic Blood Culture - Preliminary NO GROWTH IN 3 DAYS Resulted 09/03/17 19:20 Blood Peripheral Anaerobic Blood Culture - Preliminary NO GROWTH IN 3 DAYS Resulted 09/06/17 18:45 Sputum Endotracheal Gram Stain - Final Resulted 09/06/17 18:45 Sputum Endotracheal Sputum Culture Pending Resulted Radiology Last Impressions Chest X-Ray 09/04/17 0600 Signed Impressions: Service Date/Time: Monday, September 04, 2017 03:33 - CONCLUSION: 1. No significant change. Armen Rodriguez MD Abdomen X-Ray 09/02/17 1654 Signed Impressions: Service Date/Time: Saturday, September 02, 2017 17:47 - CONCLUSION: 1. Probable free intraperitoneal air. Further evaluation with abdomen and pelvic CT recommended. Joel Garcia MD Abdomen/Pelvis CT 09/01/17 0559 Signed Impressions: Service Date/Time: August 07:15 - CONCLUSION: Nonspecific free peritoneal fluid. No acute focal abnormalities. Juan Rivera MD Chest CT 09/01/17 0000 Signed Impressions: Service Date/Time: August 07:15 - CONCLUSION: No acute CT findings of the chest Juan Rivera MD Cardiovascular: Regular Lungs: Clear Abdomen: Other (Abdominal binder in place; midline incision c/d/i with mary intact; RAYMOND serous ) Extremities: Other (generalized edema ) Narrative Exam Donaldson in place with clear yellow urine A/P Problem List: (1) Status post exploratory laparotomy ICD Codes: Z98.890 - Other specified postprocedural states Status: Acute (2) Duodenal ulcer perforation ICD Codes: K26.5 - Chronic or unspecified duodenal ulcer with perforation Status: Chronic (3) Duodenal ulcer with perforation ICD Codes: K26.5 - Chronic or unspecified duodenal ulcer with perforation Status: Chronic (4) H/O hypertrophic cardiomyopathy ICD Codes: Z86.79 - Personal history of other diseases of the circulatory system Status: Chronic (5) Perforation of duodenal ulcer ICD Codes: K26.5 - Chronic or unspecified duodenal ulcer with perforation Status: Acute (6) Anemia ICD Codes: D64.9 - Anemia, unspecified Status: Acute (7) GI bleed ICD Codes: K92.2 - Gastrointestinal hemorrhage, unspecified Status: Acute (8) AICD (automatic cardioverter/defibrillator) present ICD Codes: Z95.810 - AICD (automatic cardioverter/defibrillator) present Status: Chronic (9) S/P MVR (mitral valve replacement) ICD Codes: Z95.4 - S/P MVR (mitral valve replacement) Status: Chronic Permanent Comment: Need prophyllaxis - Due to endocarditis Last Edited By: Ozzy Edwards on May 26, 2014 13:06 (10) H/O mitral valve replacement with mechanical valve ICD Codes: Z95.2 - Presence of prosthetic heart valve Status: Chronic (11) Malnutrition ICD Codes: E46 - Unspecified protein-calorie malnutrition Status: Chronic (12) Serum albumin decreased ICD Codes: E88.09 - Other disorders of plasma-protein metabolism, not elsewhere classified Status: Chronic (13) Chronic anticoagulation ICD Codes: Z79.01 - 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 Martinez Attending Statement NOTE FOR SURGICAL ATTENDING, DR. JOEL WATSON Patient seen in the intensive care unit Discussed with and mother at the bedside Clinically slow steady recovery Continue monitor electrolytes and white count Continue antibiotic Continue anti-ulcer medication I agree with above assessment and plan. The exam, history, and the medical decision-making described in the above note were completed with the assistance of the mid-level provider. I reviewed and agree with the findings presented. I attest that I had a [id number] encounter with the patient on the same day, and personally performed and documented my assessment and findings in the medical record. The following services were provided during this hospital visit: Chart data review, vital sign assessments/reviewing monitor data Review of consultations notes if present. Medication orders/review and/or management Ordering and/or reviewing lab tests Ordering and/or interpreting/reviewing x-rays and/or diagnostic studies Care of the patient and discussion of the patient with the care team Documentation time To help prompt me to consider important information that might be impacting today's encounter and assessment, information from prior notes written by myself or my colleagues may have been "brought forward/copy and pasted" into today's note. Problem Qualifiers (1) Anemia: Qualified Codes: D62 - Acute posthemorrhagic anemia (2) GI bleed: Qualified Codes: K26.4 - Chronic or unspecified duodenal ulcer with hemorrhage (3) Malnutrition: Ines Valentino/Folding Machine Feeder MARCOS Sep 07, 2017 09:58 Joel Watson MD Sep 07, 2017 18:01
[2017-09-07] MEDS: MIDAZOLAM 100 MG/100 ML INJ 100 ML IV PRN (11:29)
[2017-09-07] MEDS: NICOTINE 14 MG/24 HR PATCH T-DERMAL SCH (11:29)
[2017-09-07] MEDS: fentaNYL DRIP 250 ML IV PRN ×2 (11:29→23:30)
--- NOTE | 2017-09-07 14:40 | HHI.CCPN ---
Subjective Remarks/Hospital Course 09/02: 41-year-old male who presented to [facility] on 09/01/2017 after having episodes of coffee-ground emesis. The patient has had some sternotomy pain and chronic back pain, and so he was told to take Mobic twice a day. He started getting nauseous. After this, he started having coffee ground emesis. He underwent endoscopy examination by Dr. Frazier when he became clinically unstable and his abdomen became rock hard. He was emergently transferred to operating room where he underwent Exploratory laparotomy, Jay patch of a 1 cm duodenal ulcer with duodenal ulcer repair, placement of drain at the duodenum, feeding jejunostomy tube placement and abdominal washout by Drs. Varma and Shirley. Postprocedure he was transferred to intensive care unit where he was weaned off the mechanical ventilation and extubated following CPAP trial, however his respiration became more labored, patient became hypoxemic and respiratory distress requiring reintubation and continue mechanical ventilation. 09/03: He remains intubated and sedated. Currently he is on norepinephrine for BP support at 8 mcg/minute. FiO2 down to 45%. Sedation currently achieved with midazolam, propofol and fentanyl infusions. Urine output is low, T-max 99.3. No family present at bedside. Morning chest x-ray reviewed, ET tube in place, right subclavian central line, pulmonary vascular congestion, possible retrocardiac infiltrate. 09/04: Patient did well over the night. Norepinephrine is off. Current heart rate in the 70s. Propofol was stopped, and fentanyl and midazolam infusions. Patient becomes easily agitated with stimulation moving all extremities but that does not follow any commands. T-max of 98.8. I/O 2241/1550. 09/05: Remains sedated, orally intubated on mechanical ventilation. On J-tube feeds at 20 cc per hour. FiO2 70% PEEP increased to +10 09/06: Remains sedated, orally intubated on mechanical ventilation. FiO2 50%, PEEP +10. Being diuresed. Tolerating J-tube feeds which are being advanced. Subjective 09/07: Low-grade temperatures. White blood cell count slowly increasing. Sputum 09/06 no growth today. Blood cultures 2 and urine ordered for today. Tube feeds Jevity 1.5 at goal 50 cc an hour. No problem. Objective Vital Signs Date Time Temp Pulse Resp B/P (MAP) Pulse Ox O2 Delivery O2 Flow Rate FiO2 09/07/17 14:00 89 09/07/17 12:38 98 40 09/07/17 12:00 100.8 16 92/57 (69) 09/06/17 09:20 Ventilator Intake and Output 09/07/17 09/07/17 09/07/17 07:59 15:59 23:59 Intake Total 2680 ml Output Total 810 ml Balance 1870 ml Result Diagram: 09/07/17 0600 09/07/17 1140 Other Results Microbiology Date/Time Source Procedure Growth Status 09/03/17 19:20 Blood Peripheral Aerobic Blood Culture - Preliminary NO GROWTH IN 4 DAYS Resulted 09/03/17 19:20 Blood Peripheral Anaerobic Blood Culture - Preliminary NO GROWTH IN 4 DAYS Resulted 09/06/17 18:45 Sputum Endotracheal Gram Stain - Final Resulted 09/06/17 18:45 Sputum Endotracheal Sputum Culture - Preliminary HEAVY GROWTH NORMAL RESPIRATORY MAXIM... Resulted Imaging Last Impressions Chest X-Ray 09/06/17 0600 Signed Impressions: Service Date/Time: Wednesday, September 06, 2017 05:15 - CONCLUSION: Bilateral airspace disease not significantly changed. Tunde Landaverde MD Abdomen X-Ray 09/02/17 1654 Signed Impressions: Service Date/Time: Saturday, September 02, 2017 17:47 - CONCLUSION: 1. Probable free intraperitoneal air. Further evaluation with abdomen and pelvic CT recommended. Joel Garcia MD Abdomen/Pelvis CT 09/01/17 0559 Signed Impressions: Service Date/Time: August 07:15 - CONCLUSION: Nonspecific free peritoneal fluid. No acute focal abnormalities. Juan Rivera MD Chest CT 09/01/17 0000 Signed Impressions: Service Date/Time: August 07:15 - CONCLUSION: No acute CT findings of the chest Juan Rivera MD Procedures None Objective Remarks General -41-year-old male currently orotracheally intubated HEENT - pupils are equal and reactive about 3 mm bilaterally, sclerae are anicteric, neck is supple, no rigidity, no JVD, no carotid bruit, orally intubated, + NGT in left nares CV -RRR. Metallic valve closure click Chest - scattered coarse breath sounds b/l, good air entry, no wheezes Abdomen - soft, non-distended, mildly tender, BS decreased, dressing over the surgical site -clean, J tube in place Skin -no skin breakdown noted Extremities - warm and well perfused, no edema, + peripheral pulses, no clubbing Neuro - intubated, sedated, moving all extremities Urinary Catheter: Yes Assessment to: Continue Donaldson insert reason: Prolonged Immobilization Vascular Central Line Catheter: No Assessment to: Continue A/P Assessment and Plan Neuro/Psych: Depression Currently midazolam drip at 4 mg an hour and fentanyl drip 200 mcg/h for sedation while intubated Goal of RASS -2 Daily sedation vacation Continue Aripiprazole 5 mg twice daily and duloxetine 30 mg daily CV: HOCM History of mechanical mitral valve replacement ([place] bileaflet, for previous endocarditis 2000) History of hypertrophic cardiomyopathy, status post septal myomectomy 2069 History of AICD 2013 Hypertension 2D echocardiogram revealed ejection fraction 60% percent. Hypertrophic cardio myopathy. Clinical mitral valve. Moderate MR. Followed by cardiology/Dr. Cabrales Holding atenolol 50 mg twice daily social medication Resp: Acute hypoxic respiratory failure Tobacco [facility] 16/06/20/39 Ventilator bundle Albuterol/ipratropium aerosols every 6 hours with albuterol aerosols every 2 hours as needed dyspnea Spontaneous breathing trials when clinically indicated Nicotine patch 14 mg daily. When appropriate self-evaluation tobacco cessation booklet will be provided GI: Hypoalbuminemia Elevated AST Jevity 1.5-50 cc an hour Pantoprazole for GI prophylaxis Docusate sodium 100 mg twice daily, senna 8.6 mg twice daily and polyethylene glycol 17 g twice daily bowel regimen : Donaldson catheter has been placed for accurate I's and O's in a critically ill patient Endo: Sliding scale insulin if indicated to maintain euglycemia TSH 2.37 Renal: Acute kidney injury Creatinine currently downward trend. Likely secondary to ATN/sepsis Recheck BMP in a.m. Heme: Acute blood loss anemia Leukocytosis Normocytic anemia Thrombocytopenia History of chronic warfarin use 2.5 mg daily Heparin drip currently at 1000 units an hour Transfuse 5 RBCs and 4 FFP during this hospitalization Recheck CBC in ID: Severe sepsis Currently on dosed piperacillin/tazobactam and fluconazole per Dr. Mohan/ infectious Pertinent cultures 09/06 -sputum -no growth 09/03 -blood cultures 2 -no growth FEN: Hypernatremia Replace electrolytes as clinically indicated BMP today pending MSK: Holding meloxicam 7.5 mg daily light of acute GI bleed PT evaluate and treat Access -Utilize peripheral IV. Central and if indicated Prophylaxis -GI -pantoprazole -DVT -SCD/heparin drip D/W Ines nurse practitioner for general surgery Discussed with family and bedside Level 3 follow-up Miles Martinez MD Sep 07, 2017 14:40
[2017-09-07] MEDS: ALBUMIN 25% INJ 50 ML IV SCH (15:55)
[2017-09-07] MEDS: ACETAMINOPHEN 650 MG/20.3 ML UDC NG PRN (15:56)
[2017-09-07 17:44] LABS: AMORPHOUS SEDIMENT, URINE RARE; BACTERIA, URINE RARE /hpf; BILIRUBIN, URINE NEG (NEG); BLOOD, URINE LARGE (NEG); GLUCOSE,URINE NEG (NEG); KETONE, URINE NEG (NEG); MUCUS URINE FEW /lpf (OCC); NITRITE,URINE NEG (NEG); SQUAMOUS EPITHELIAL CELL URINE <1 /hpf (0-5); URINE COLOR YELLOW (YELLW/STRAW); URINE LEUKOCYTE ESTERASE NEG (NEG)
[2017-09-07 17:50] LABS: BICARBONATE 27.2 MEQ/L (21.0-32.0); CREATININE 1.22 MG/DL (0.60-1.30)
--- NOTE | 2017-09-07 18:29 | HHI.IDPN ---
Subjective Subjective Remarks pt is febrile, low grade BP low, borderline, but not on pressors WBC going up No BM yet Antibiotics fluconazole zosyn Allergies: Coded Allergies: haloperidol (Unverified Allergy, Severe, DYSTONIC REACTION, 09/01/17) lorazepam (Unverified Allergy, Severe, SEVERE AGITATION, 09/01/17) promethazine (Unverified Allergy, Severe, SEVERE AGITATION, 09/01/17) zolpidem (Unverified Allergy, Severe, severe agitation, 09/01/17) Objective . Vital Signs Date Time Temp Pulse Resp B/P (MAP) Pulse Ox O2 Delivery O2 Flow Rate FiO2 09/07/17 16:34 97 40 09/07/17 16:00 40 09/07/17 16:00 94 09/07/17 16:00 99.7 94 16 101/59 (73) 97 09/07/17 14:00 89 09/07/17 12:38 98 40 09/07/17 12:00 100.8 91 16 92/57 (69) 98 09/07/17 12:00 91 09/07/17 12:00 40 09/07/17 10:00 88 09/07/17 08:00 91 09/07/17 08:00 40 09/07/17 08:00 100.4 91 16 97/54 (68) 98 09/07/17 07:57 99 40 09/07/17 06:00 112 09/07/17 04:02 100 40 09/07/17 04:00 73 09/07/17 04:00 99.8 73 16 106/64 (78) 100 09/07/17 04:00 40 09/07/17 02:00 78 09/07/17 00:13 100 40 09/07/17 00:00 40 09/07/17 00:00 78 09/07/17 00:00 99.9 78 16 111/58 (75) 100 09/06/17 22:00 84 09/06/17 20:15 100 40 09/06/17 20:00 99.5 82 16 102/65 (77) 100 09/06/17 20:00 82 09/06/17 20:00 40 . Laboratory Tests Test 09/06/17 01:50 09/07/17 06:00 White Blood Count 13.9 TH/MM3 18.3 TH/MM3 Red Blood Count 3.06 MIL/MM3 3.23 MIL/MM3 Hemoglobin 9.0 GM/DL 9.5 GM/DL Hematocrit 27.7 % 29.8 % Mean Corpuscular Volume 90.5 FL 92.3 FL Mean Corpuscular Hemoglobin 29.5 PG 29.6 PG Mean Corpuscular Hemoglobin Concent 32.6 % 32.0 % Red Cell Distribution Width 18.4 % 19.0 % Platelet Count 115 TH/MM3 117 TH/MM3 Mean Platelet Volume 7.0 FL 7.2 FL CBC Comment AUTO DIFF Differential Total Cells Counted 100 Neutrophils % (Manual) 82 % Band Neutrophils % 7 % Lymphocytes % 4 % Monocytes % 6 % Eosinophils % 1 % Neutrophils # (Manual) 12.4 TH/MM3 Nucleated Red Blood Cells 1 /100 WBC Differential Comment FINAL DIFF MANUAL Dohle Bodies PRESENT Platelet Estimate LOW Platelet Morphology Comment NORMAL Red Cell Morphology Comment NORMAL Laboratory Tests Test 09/06/17 01:50 09/06/17 13:50 09/07/17 11:40 09/07/17 16:20 Blood Urea Nitrogen 35 MG/DL 30 MG/DL Creatinine 1.43 MG/DL 1.22 MG/DL Random Glucose 97 MG/DL 128 MG/DL Total Protein 4.5 GM/DL Albumin 1.6 GM/DL Calcium Level 7.7 MG/DL 8.0 MG/DL Alkaline Phosphatase 85 U/L Aspartate Amino Transf (AST/SGOT) 50 U/L Alanine Aminotransferase (ALT/SGPT) 42 U/L Total Bilirubin 0.4 MG/DL Sodium Level 148 MEQ/L 150 MEQ/L Potassium Level 3.3 MEQ/L 3.5 MEQ/L 3.8 MEQ/L 3.6 MEQ/L Chloride Level 114 MEQ/L 116 MEQ/L Carbon Dioxide Level 27.6 MEQ/L 27.2 MEQ/L Anion Gap 6 MEQ/L 7 MEQ/L Estimat Glomerular Filtration Rate 55 ML/MIN 66 ML/MIN Microbiology Date/Time Source Procedure Growth Status 09/06/17 18:45 Sputum Endotracheal Gram Stain - Final Resulted 09/06/17 18:45 Sputum Endotracheal Sputum Culture - Preliminary HEAVY GROWTH NORMAL RESPIRATORY MAXIM... Resulted 09/07/17 16:20 Urine Catheterized Urine Urine Culture Pending Received Imaging Last Impressions Chest X-Ray 09/06/17 0600 Signed Impressions: Service Date/Time: Wednesday, September 06, 2017 05:15 - CONCLUSION: Bilateral airspace disease not significantly changed. Tunde Landaverde MD Abdomen X-Ray 09/02/17 1654 Signed Impressions: Service Date/Time: Saturday, September 02, 2017 17:47 - CONCLUSION: 1. Probable free intraperitoneal air. Further evaluation with abdomen and pelvic CT recommended. Joel Garcia MD Abdomen/Pelvis CT 09/01/17 0559 Signed Impressions: Service Date/Time: August 07:15 - CONCLUSION: Nonspecific free peritoneal fluid. No acute focal abnormalities. Juan Rivera MD Chest CT 09/01/17 0000 Signed Impressions: Service Date/Time: August 07:15 - CONCLUSION: No acute CT findings of the chest Juan Rivera MD Physical Exam CONSTITUTIONAL/GENERAL: This is an adequately nourished patient, in no apparent distress. Sedated intubated, on vent TUBES/LINES/DRAINS: SKIN: No jaundice, rashes, or lesions. Skin temperature appropriate. Not diaphoretic. EYES: Pupils equal and round and reactive. Extraocular motions intact. No scleral icterus. No injection or drainage. Fundi not examined. NECK: Trachea midline. Supple, nontender. No palpable thyroid enlargement or nodularity. CARDIOVASCULAR: Regular rate and rhythm with 2-3/6 systolic murmur, no gallops , or rubs. Mechanical saiin sounds No JVD. Peripheral pulses symmetric. RESPIRATORY/CHEST: Symmetric, unlabored respirations. Clear to auscultation. Breath sounds equal bilaterally. No wheezes, rales, or rhonchi. GASTROINTESTINAL: Abdomen soft, non-tender, nondistended. No hepato-splenomegaly , or palpable masses. No guarding. Bowel sounds abscent BS active GENITOURINARY: Without palpable bladder distension. Donaldson catheter in place with yellow urine MUSCULOSKELETAL: Extremities without clubbing, cyanosis, + 1-2 edema. No joint tenderness or effusion noted. No calf tenderness. No mottling or clubbing. NEUROLOGICAL:Sedated, not following PSYCHIATRIC: unable to assess Assessment & Plan Remarks Perforated duodenal ulcer with massive contamination. Sepsis (bandemia, hemodynamic instability acute VDRF and ARF) Sp prosthetic mech valve Remote h/o endocarditis acute VDRF worsening leukocyutosis, persistant fever cont zosyn, fluconazole fu repeat blood clx - chk sputum clx, UA/C+S chk CXR CT abd/pel if worse dw Marilin Stevens,Melanie Powell MD Sep 07, 2017 18:29
--- NOTE | 2017-09-07 19:34 | PD.CARD.PN ---
Subjective Subjective Remarks Patient was seen this afternoon, late entry note Currently intubated Objective Medications Current Medications Medications (Trade) Dose Ordered Sig/Khushboo Route Start Time Stop Time Status Last Admin (Protonix Inj) 40 mg Q12HR IV PUSH 09/01/17 09:30 09/07/17 09:22 (NS Flush) 2 ml UNSCH PRN IV FLUSH 09/01/17 09:30 (NS Flush) 2 ml BID IV FLUSH 09/01/17 21:00 09/07/17 09:00 (Zofran Inj) 4 mg Q6H PRN IVP 09/01/17 09:30 (Morphine Inj) 2 mg Q3H PRN IV PUSH 09/01/17 09:30 09/02/17 12:28 (Morphine Inj) 4 mg Q3H PRN IV PUSH 09/01/17 09:30 09/07/17 04:56 (Narcan Inj) 0.4 mg UNSCH PRN IV PUSH 09/01/17 09:30 (Milk Of Magnesia Liq) 30 ml Q12H PRN PO 09/01/17 09:30 09/07/17 09:24 (Senokot) 17.2 mg Q12H PRN PO 09/01/17 09:30 (Dulcolax Supp) 10 mg DAILY PRN RECTAL 09/01/17 09:30 (Lactulose Liq) 30 ml DAILY PRN PO 09/01/17 09:30 (Morphine Inj) 4 mg Q3H PRN IV PUSH 09/01/17 10:15 Miscellaneous Information 1 DAILY T-DERMAL 09/02/17 09:00 09/07/17 09:00 (Habitrol 14 Mg Patch.24 Hr) 1 patch DAILY T-DERMAL 09/02/17 09:00 09/07/17 11:29 (Abilify) 5 mg BID PO 09/01/17 21:00 09/07/17 09:24 (Cymbalta Dr) 30 mg DAILY PO 09/01/17 11:45 09/07/17 09:24 (KlonoPIN) 0.5 mg Q8HR PRN PO 09/01/17 20:45 09/02/17 12:46 Fluconazole/ Sodium Chloride 200 ml @ 100 mls/hr Q24H IV 09/03/17 18:00 09/06/17 18:48 Propofol 100 ml @ 1.98 mls/hr TITRATE PRN IV 09/02/17 20:30 09/07/17 05:11 Norepinephrine Bitartrate 250 ml @ 7.5 mls/hr TITRATE PRN IV 09/02/17 20:30 09/03/17 18:47 Fentanyl Citrate 250 ml @ 5 mls/hr TITRATE PRN IV 09/03/17 01:00 09/07/17 11:29 Midazolam HCl 100 ml @ 2 mls/hr TITRATE PRN IV 09/03/17 01:00 09/07/17 11:29 Piperacillin Sod/ Tazobactam Sod 50 ml @ 100 mls/hr Q6H IV 09/03/17 14:00 09/07/17 13:38 Dexmedetomidine HCl 1000 mcg/ Sodium Chloride 250 ml @ 3.77 mls/hr TITRATE PRN IV 09/04/17 12:30 09/05/17 01:00 (Heparin Inj) 5,000 units UNSCH PRN IV PUSH 09/04/17 20:30 (Heparin Inj) 2,500 units UNSCH PRN IV PUSH 09/04/17 20:30 Heparin Sodium/ Dextrose 250 ml @ 9 mls/hr TITRATE PRN IV 09/04/17 14:30 09/06/17 18:48 Miscellaneous Information D/C ICU ELECTROLYTE ORDERS... UNSCH PRN .XX 09/06/17 04:15 Miscellaneous Information ICU - CALL ORDERING PHYSIC... UNSCH PRN .XX 09/06/17 04:15 Potassium Chloride 100 ml @ 25 mls/hr UNSCH PRN IV 09/06/17 04:15 09/06/17 18:50 (K-Lyte Cl Eff) 50 meq UNSCH PRN PO 09/06/17 04:15 Potassium Chloride 100 ml @ 50 mls/hr UNSCH PRN IV 09/06/17 04:15 Magnesium Sulfate 4 gm/Sodium Chloride 108 ml @ 54 mls/hr UNSCH PRN IV 09/06/17 04:15 Magnesium Sulfate 2 gm/Sodium Chloride 104 ml @ 52 mls/hr UNSCH PRN IV 09/06/17 04:15 (Mag-Ox) 800 mg UNSCH PRN PO 09/06/17 04:15 Sodium Phosphate 30 mmol/Sodium Chloride 260 ml @ 43.333 mls/ hr UNSCH PRN IV 09/06/17 04:15 (K-Phos) 2,000 mg UNSCH PRN PO 09/06/17 04:15 Potassium Phosphate 30 mmol/ Sodium Chloride 260 ml @ 43.333 mls/ hr UNSCH PRN IV 09/06/17 04:15 (Lasix Inj) 20 mg DAILY IV PUSH 09/06/17 09:00 09/07/17 09:22 (Tylenol 650 Mg/ 20 ml Liq) 650 mg Q6H PRN NG 09/07/17 14:30 09/07/17 15:56 (Tears Naturale Opth Soln) 1 drop Q8HR EACH EYE 09/07/17 22:00 (Colace Liq) 100 mg Q12HR PO 09/07/17 21:00 (Senna Liq) 8.8 mg BID PO 09/07/17 21:00 (Miralax) 17 gm BID PO 09/07/17 21:00 Albumin Human 50 ml @ 60 mls/hr Q12H IV 09/07/17 16:00 09/09/17 15:59 09/07/17 15:55 Vital Signs / I&O Vital Signs Date Time Temp Pulse Resp B/P (MAP) Pulse Ox O2 Delivery O2 Flow Rate FiO2 09/07/17 16:34 97 40 09/07/17 16:00 40 09/07/17 16:00 94 09/07/17 16:00 99.7 94 16 101/59 (73) 97 09/07/17 14:00 89 09/07/17 12:38 98 40 09/07/17 12:00 100.8 91 16 92/57 (69) 98 09/07/17 12:00 91 09/07/17 12:00 40 09/07/17 10:00 88 09/07/17 08:00 91 09/07/17 08:00 40 09/07/17 08:00 100.4 91 16 97/54 (68) 98 09/07/17 07:57 99 40 09/07/17 06:00 112 09/07/17 04:02 100 40 09/07/17 04:00 73 09/07/17 04:00 99.8 73 16 106/64 (78) 100 09/07/17 04:00 40 09/07/17 02:00 78 09/07/17 00:13 100 40 09/07/17 00:00 40 09/07/17 00:00 78 09/07/17 00:00 99.9 78 16 111/58 (75) 100 09/06/17 22:00 84 09/06/17 20:15 100 40 09/06/17 20:00 99.5 82 16 102/65 (77) 100 09/06/17 20:00 82 09/06/17 20:00 40 I/O 09/06/17 09/06/17 09/06/17 09/07/17 09/07/17 09/07/17 07:00 15:00 23:00 07:00 15:00 23:00 Intake Total 508 ml 2680 ml Output Total 835 ml 1855 ml 810 ml Balance -835 ml -1347 ml 1870 ml IV Total 150 ml 1800 ml Tube Feeding 298 ml 880 ml Tube Irrigant 60 ml Output Urine Total 750 ml 1700 ml 790 ml Gastric Drainage Total 50 ml 75 ml Drainage Total 35 ml 80 ml 20 ml # Bowel Movements 0 0 0 Physical Exam GENERAL: Intubated and sedated SKIN: Warm and dry. HEAD: Atraumatic. Normocephalic. EYES: Pupils equal and round. No scleral icterus. No injection or drainage. ENT: No nasal bleeding or discharge. Mucous membranes pink and moist. NECK: Trachea midline. No JVD. CARDIOVASCULAR: Regular rate and rhythm. 1/6 creascendo-decrescendo murmur to the RSB, mechanical click noted RESPIRATORY: No accessory muscle use. Clear to auscultation. Breath sounds equal bilaterally. GASTROINTESTINAL: Abdomen soft, non-tender, nondistended. Hepatic and splenic margins not palpable. MUSCULOSKELETAL: Extremities without clubbing, cyanosis, or edema. No obvious deformities. NEUROLOGICAL: Intubated and sedated Laboratory Laboratory Tests Test 09/07/17 06:00 09/07/17 11:40 09/07/17 16:20 White Blood Count 18.3 TH/MM3 Red Blood Count 3.23 MIL/MM3 Hemoglobin 9.5 GM/DL Hematocrit 29.8 % Mean Corpuscular Volume 92.3 FL Mean Corpuscular Hemoglobin 29.6 PG Mean Corpuscular Hemoglobin Concent 32.0 % Red Cell Distribution Width 19.0 % Platelet Count 117 TH/MM3 Mean Platelet Volume 7.2 FL Prothrombin Time 12.7 SEC Prothromb Time International Ratio 1.3 RATIO Activated Partial Thromboplast Time 32.0 SEC 36.4 SEC Potassium Level 3.8 MEQ/L 3.6 MEQ/L Urine Color YELLOW Urine Turbidity HAZY Urine pH 6.0 Urine Specific [place] 1.027 Urine Protein 30 mg/dL Urine Glucose (UA) NEG mg/dL Urine Ketones NEG mg/dL Urine Occult Blood LARGE Urine Nitrite NEG Urine Bilirubin NEG Urine Urobilinogen LESS THAN 2.0 MG/DL Urine Leukocyte Esterase NEG Urine RBC /hpf Urine WBC 32 /hpf Urine Squamous Epithelial Cells <1 /hpf Urine Amorphous Sediment RARE Urine Bacteria RARE /hpf Urine Mucus FEW /lpf Microscopic Urinalysis Comment CATH-CULTURE IND Blood Urea Nitrogen 30 MG/DL Creatinine 1.22 MG/DL Random Glucose 128 MG/DL Calcium Level 8.0 MG/DL Sodium Level 150 MEQ/L Chloride Level 116 MEQ/L Carbon Dioxide Level 27.2 MEQ/L Anion Gap 7 MEQ/L Estimat Glomerular Filtration Rate 66 ML/MIN Assessment and Plan Problem List: (1) Familial hypertrophic cardiomyopathy ICD Codes: I42.2 - Other hypertrophic cardiomyopathy (2) H/O hypertrophic cardiomyopathy ICD Codes: Z86.79 - Personal history of other diseases of the circulatory system Status: Chronic (3) H/O mitral valve replacement with mechanical valve ICD Codes: Z95.2 - Presence of prosthetic heart valve Status: Chronic (4) GI bleed ICD Codes: K92.2 - Gastrointestinal hemorrhage, unspecified Status: Acute (5) S/P MVR (mitral valve replacement) ICD Codes: Z95.4 - S/P MVR (mitral valve replacement) Status: Chronic Permanent Comment: Need prophyllaxis - Due to endocarditis Last Edited By: Ozzy Edwards on May 26, 2014 13:06 (6) Congestive heart failure ICD Codes: I50.9 - Congestive heart failure Status: Acute (7) History of endocarditis ICD Codes: Z86.79 - History of endocarditis Status: Acute (8) AICD (automatic cardioverter/defibrillator) present ICD Codes: Z95.810 - AICD (automatic cardioverter/defibrillator) present Status: Chronic Assessment and Plan 1) EGD with perforation s/p Jay patch 2) Mechanical mitral valve Restarted on Heparin drip No signs of bleeding Hgb stable 3) Hx HOCM Previous septal myectomy Normal ejection fraction on echo, no gradient noted from previous HOCM s/p septal myectomy 4) GI Bleed Most likely secondary to NSAID use 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 Problem Qualifiers (1) GI bleed: Qualified Codes: K26.4 - Chronic or unspecified duodenal ulcer with hemorrhage Angelo Cabrales DO Sep 07, 2017 19:34
[2017-09-07] MEDS: FLUCONAZOLE 400 MG PREMIX BAG 200 ML IV SCH (19:55)
[2017-09-07] MEDS: POLYETHYLENE GLYCOL 17 GM PKG PO SCH (21:02)
[2017-09-07] MEDS: SENNOSIDES SYRUP 8.8 MG/5 ML CUP PO SCH (21:02)
[2017-09-07] MEDS: DOCUSATE SODIUM 100 MG/10 ML UDC PO SCH (21:02)
[2017-09-07] MEDS: ARTIFICIAL TEARS OPTH SOLN 15 ML BTL EACH EYE SCH (21:03)
[2017-09-08] VITALS (18 sets, daily range): BP systolic 109–133; BP diastolic 61–85; PULSE 74–99; RESP 16; TEMP 98.7–100.4; O2SAT 97–100
[2017-09-08] MEDS: PROPOFOL 1000 MG/100 ML IV PRN ×2 (00:54→14:55)
[2017-09-08] MEDS: PIPERACIL-TAZO 3.375 GM PREMIX 50 ML IV SCH ×4 (03:20→20:48)
[2017-09-08] MEDS: ALBUMIN 25% INJ 50 ML IV SCH ×2 (03:56→14:52)
[2017-09-08] MEDS: MIDAZOLAM 100 MG/100 ML INJ 100 ML IV PRN ×2 (04:56→14:55)
[2017-09-08 05:22] LABS: AUTOMATED NEUTROPHIL # 12.6 TH/MM3 (1.8-7.7); BASOPHIL # 0.1 TH/MM3 (0-0.2); BASOPHIL % 0.4 % (0.0-2.0); EOSINOPHIL # 0.2 TH/MM3 (0-0.4); EOSINOPHIL % 1.4 % (0.0-4.0); HEMATOCRIT 24.6 % (39.0-51.0); LYMPH % 6.6 % (9.0-44.0); MEAN CORPUSCULAR HEMOGLOBIN 29.4 PG (27.0-34.0); MEAN CORPUSCULAR HGB CONC 32.3 % (32.0-36.0); MEAN PLATELET VOLUME 7.3 FL (7.0-11.0); MONO % 6.6 % (0.0-8.0); PLATELET COUNT 98 TH/MM3 (150-450); RED BLOOD COUNT 2.71 MIL/MM3 (4.50-5.90); RED CELL DISTRIBUTION WIDTH 18.7 % (11.6-17.2); WHITE BLOOD COUNT 14.8 TH/MM3 (4.0-11.0)
[2017-09-08 05:42] LABS: ALBUMIN 1.7 GM/DL (3.4-5.0); AST (GOT) 21 U/L (15-37); BICARBONATE 26.3 MEQ/L (21.0-32.0); BLOOD UREA NITROGEN 31 MG/DL (7-18); CALCIUM 7.9 MG/DL (8.5-10.1); CHLORIDE 116 MEQ/L (98-107); CREATININE 1.15 MG/DL (0.60-1.30); GLOMERULAR FILTRATION RATE 71 ML/MIN (>89); GLUCOSE,RANDOM 102 MG/DL (74-106); MAGNESIUM 1.8 MG/DL (1.5-2.5); SODIUM (NA) 150 MEQ/L (136-145)
[2017-09-08 05:43] LABS: ALT (GPT) 25 U/L (12-78); PHOSPHORUS 3.2 MG/DL (2.5-4.9)
[2017-09-08 05:46] LABS: ALKALINE PHOSPHATASE 69 U/L (45-117); TOTAL BILIRUBIN ADULT 0.5 MG/DL (0.2-1.0); TOTAL PROTEIN 4.7 GM/DL (6.4-8.2)
[2017-09-08] MEDS: ARTIFICIAL TEARS OPTH SOLN 15 ML BTL EACH EYE SCH ×3 (06:00→20:20)
[2017-09-08] MEDS ORDERED: POTASSIUM CHLORIDE 20 MEQ PWD PACKET PO ONE (06:30)
[2017-09-08] MEDS ORDERED: METHYLNALTREXONE BROMIDE 12 MG/0.6 ML VIAL SQ ONE (06:30)
--- NOTE | 2017-09-08 06:34 | HHI.CCPN ---
Subjective Remarks/Hospital Course 09/02: 41-year-old male who presented to [facility] on 09/01/2017 after having episodes of coffee-ground emesis. The patient has had some sternotomy pain and chronic back pain, and so he was told to take Mobic twice a day. He started getting nauseous. After this, he started having coffee ground emesis. He underwent endoscopy examination by Dr. Frazier when he became clinically unstable and his abdomen became rock hard. He was emergently transferred to operating room where he underwent Exploratory laparotomy, Jay patch of a 1 cm duodenal ulcer with duodenal ulcer repair, placement of drain at the duodenum, feeding jejunostomy tube placement and abdominal washout by Drs. Varma and Shirley. Postprocedure he was transferred to intensive care unit where he was weaned off the mechanical ventilation and extubated following CPAP trial, however his respiration became more labored, patient became hypoxemic and respiratory distress requiring reintubation and continue mechanical ventilation. 09/03: He remains intubated and sedated. Currently he is on norepinephrine for BP support at 8 mcg/minute. FiO2 down to 45%. Sedation currently achieved with midazolam, propofol and fentanyl infusions. Urine output is low, T-max 99.3. No family present at bedside. Morning chest x-ray reviewed, ET tube in place, right subclavian central line, pulmonary vascular congestion, possible retrocardiac infiltrate. 09/04: Patient did well over the night. Norepinephrine is off. Current heart rate in the 70s. Propofol was stopped, and fentanyl and midazolam infusions. Patient becomes easily agitated with stimulation moving all extremities but that does not follow any commands. T-max of 98.8. I/O 2241/1550. 09/05: Remains sedated, orally intubated on mechanical ventilation. On J-tube feeds at 20 cc per hour. FiO2 70% PEEP increased to +10 09/06: Remains sedated, orally intubated on mechanical ventilation. FiO2 50%, PEEP +10. Being diuresed. Tolerating J-tube feeds which are being advanced. 09/07: Low-grade temperatures. White blood cell count slowly increasing. Sputum 09/06 no growth today. Blood cultures 2 and urine ordered for today. Tube feeds Jevity 1.5 at goal 50 cc an hour. No problem. Subjective 09/08: T-max 100.8. Currently afebrile. No bowel movement overnight. 50 cc from RAYMOND tube. Increasing NG tube output greenish. Continues to tolerate tube feeding. PEEP down to 5. Objective Vital Signs Date Time Temp Pulse Resp B/P (MAP) Pulse Ox O2 Delivery O2 Flow Rate FiO2 09/08/17 03:44 100 30 09/08/17 02:00 80 09/08/17 00:00 98.7 16 124/66 (85) 09/06/17 09:20 Ventilator Result Diagram: 09/08/17 0455 09/08/17 0455 Other Results Microbiology Date/Time Source Procedure Growth Status 09/08/17 04:00 Blood Peripheral Aerobic Blood Culture Pending Received 09/08/17 04:00 Blood Peripheral Anaerobic Blood Culture Pending Received 09/06/17 18:45 Sputum Endotracheal Gram Stain - Final Resulted 09/06/17 18:45 Sputum Endotracheal Sputum Culture - Preliminary HEAVY GROWTH NORMAL RESPIRATORY MAXIM... Resulted 09/07/17 16:20 Urine Catheterized Urine Urine Culture Pending Received Imaging Last Impressions Chest X-Ray 09/06/17 0600 Signed Impressions: Service Date/Time: Wednesday, September 06, 2017 05:15 - CONCLUSION: Bilateral airspace disease not significantly changed. Tunde Landaverde MD Abdomen X-Ray 09/02/17 1654 Signed Impressions: Service Date/Time: Saturday, September 02, 2017 17:47 - CONCLUSION: 1. Probable free intraperitoneal air. Further evaluation with abdomen and pelvic CT recommended. Joel Garcia MD Abdomen/Pelvis CT 09/01/17 0559 Signed Impressions: Service Date/Time: August 07:15 - CONCLUSION: Nonspecific free peritoneal fluid. No acute focal abnormalities. Juan Rivera MD Chest CT 09/01/17 0000 Signed Impressions: Service Date/Time: August 07:15 - CONCLUSION: No acute CT findings of the chest Juan Rivera MD Procedures None Objective Remarks General -41-year-old male currently orotracheally intubated HEENT - pupils are equal and reactive about 3 mm bilaterally, sclerae are anicteric, neck is supple, no rigidity, no JVD, no carotid bruit, orally intubated, + NGT in left nares CV -RRR. Metallic valve closure click Chest - scattered coarse breath sounds b/l, good air entry, no wheezes Abdomen - soft, non-distended, mildly tender, BS decreased, abdominal binder/ dressing over the surgical site -clean, J tube in place. RAYMOND tube right-sided 50 cc SS output overnight Skin -no skin breakdown noted Extremities - warm and well perfused, no edema, + peripheral pulses, no clubbing Neuro - intubated, sedated, moving all extremities Urinary Catheter: Yes Assessment to: Continue Donaldson insert reason: Prolonged Immobilization Vascular Central Line Catheter: Yes Assessment to: Continue Date of Insertion: Sep 02, 2017 Line: Central Venous Catheter Side: Right Location: Subclavian A/P Assessment and Plan Neuro/Psych: Depression Currently midazolam drip at 8 mg an hour, propofol drip at 20 micrograms per kilogram per minute and fentanyl drip 250 mcg/h for sedation while intubated Goal of RASS -2 Daily sedation vacation Continue Aripiprazole 5 mg twice daily and duloxetine 30 mg daily/home medications for depression/anxiety CV: HOCM History of mechanical mitral valve replacement ([place] bileaflet, for previous endocarditis 2000) History of hypertrophic cardiomyopathy, status post septal myomectomy 2069 History of AICD 2013 Hypertension 2D echocardiogram revealed ejection fraction 60% percent. Hypertrophic cardio myopathy. Clinical mitral valve. Moderate MR. Followed by cardiology/Dr. Cabrales Holding atenolol 50 mg twice daily due to hypotension. Resume beta-vannessa when clinically indicated/more hemodynamically stable Resp: Acute hypoxic respiratory failure Tobacco ACV 16/500/5/30 Ventilator bundle Albuterol/ipratropium aerosols every 6 hours with albuterol aerosols every 2 hours as needed dyspnea Spontaneous breathing trials today with attempt extubation Nicotine patch 14 mg daily. When appropriate self-evaluation tobacco cessation booklet will be provided GI: Hypoalbuminemia Elevated AST Constipation Colonic ileus Jevity 1.5-50 cc an hour currently at goal Free water 300 cc every 6 hours Pantoprazole for GI prophylaxis Docusate sodium 100 mg twice daily, senna 8.6 mg twice daily and polyethylene glycol 17 g twice daily and lactulose 30 cc twice daily. Bowel regimen. Methylnaltrexone 12 mg subcu 1 now. Check KUB -colonic ileus. Add metoclopramide 5 mg every 8 hours, E-Mycin 200 mg every 8 hours. Recheck KUB in a.m. Surgery will be notified. : Donaldson catheter has been placed for accurate I's and O's in a critically ill patient Endo: Sliding scale insulin if indicated to maintain euglycemia TSH 2.37 Renal: Acute kidney injury Creatinine currently downward trend. Likely secondary to ATN/sepsis. Slowly normalizing Recheck BMP in a.m. Heme: Acute blood loss anemia Leukocytosis Normocytic anemia Thrombocytopenia History of chronic warfarin use 2.5 mg daily Heparin drip currently at 1000 units an hour Transfuse 5 RBCs and 4 FFP during this hospitalization Hemoglobin currently 8.0 ID: Severe sepsis Currently on continuous dosed piperacillin/tazobactam and fluconazole per Dr. Mohan/infectious Pertinent cultures 09/06 -sputum -no growth 09/03 -blood cultures 2 -no growth FEN: Hypernatremia Hypokalemia Replace electrolytes as clinically indicated 70 mEq KCl 1 now. Recheck in a.m. MSK: Holding meloxicam 7.5 mg daily light of acute GI bleed PT evaluate and treat Access -Right subclavian CVL placed 09/02 at present -Left radial arterial line 09/02 to present. Discontinue today Prophylaxis -GI -pantoprazole -DVT -SCD/heparin drip D/W Ines nurse practitioner for general surgery Discussed with family and bedside Level 3 follow-up Miles Martinez MD Sep 08, 2017 06:34
--- NOTE | 2017-09-08 07:04 | RADRPT ---
EXAM DATE/TIME: 09/08/2017 05:49 [facility] COMPARISON: CHEST SINGLE AP, September 06, 2017, 5:15. INDICATIONS : Respiratory distress. MEDICAL HISTORY : Myocardial infarction. Congestive heart failure. Hypertension. SURGICAL HISTORY : Pacemaker. Mitral valve replacement. ENCOUNTER: Subsequent ACUITY: 4 - 6 days PAIN SCORE: Non-responsive. LOCATION: Bilateral chest FINDINGS: A single view of the chest demonstrates endotracheal tube in good position. NG enters stomach. Pacer lead overlies right ventricle. Right central line tip in right atrium. Previous median sternotomy and mitral valve replacement. Mild to moderate edema pattern with dense consolidation at the left base. No pneumothorax. CONCLUSION: 1. Stable exam. Support apparatus unchanged. Joel Garcia MD on September 08, 2017 at 7:01 Board Certified Radiologist. This report was verified electronically.
[2017-09-08 07:10] LABS: BANDS 2 % (0-6); CORRECTED NUCLEATED RBC 2 /100 WBC (0-0); LYMPHOCYTES 3 % (9-44); MONOCYTES 6 % (0-8); NEUTROPHIL # MANUAL DIFF 13.2 TH/MM3 (1.8-7.7); NUCLEATED RED BLOOD CELL 2 (0-0); POLYS (SEG NEUTROPHILS) 87 % (16-70)
--- NOTE | 2017-09-08 07:15 | RADRPT ---
EXAM DATE/TIME: 09/08/2017 06:41 [facility] COMPARISON: No previous studies available for comparison. INDICATIONS : Ileus. MEDICAL HISTORY : Myocardial infarction. Congestive heart failure. Hypertension. SURGICAL HISTORY : Mitral valve replacement. Perforated duodenal ulcer repair. ENCOUNTER: Subsequent ACUITY: 2 weeks PAIN SCORE: Non-responsive. LOCATION: abdomen FINDINGS: Drains present in the right abdomen and left lower quadrant. NG tube in antrum or duodenal region. Co nstipation and colonic ileus. CONCLUSION: 1. Constipation and colonic ileus with colon distended up to 8.6 cm in diameter. Joel Garcia MD on September 08, 2017 at 7:11 Board Certified Radiologist. This report was verified electronically.
[2017-09-08] MEDS: POTASSIUM CHLOR 10 MEQ PREMIX 100 ML IV SCH ×5 (07:30→10:00)
[2017-09-08] MEDS: ERYTHROMYCIN ETHYLSUCCINATE 200 MG/5 ML SUSP 100 ML BOTTLE PO SCH ×3 (08:15→20:50)
[2017-09-08] MEDS: POLYETHYLENE GLYCOL 17 GM PKG PO SCH ×2 (08:45→20:48)
[2017-09-08] MEDS: SENNOSIDES SYRUP 8.8 MG/5 ML CUP PO SCH ×2 (08:45→20:48)
[2017-09-08] MEDS: DULoxetine HCl DR 30 MG CAP PO SCH (08:46)
[2017-09-08] MEDS: ARIPiprazole 5 MG TAB PO SCH ×2 (08:46→20:19)
[2017-09-08] MEDS: PANTOPRAZOLE SODIUM 40 MG VIAL IV PUSH SCH ×2 (08:47→20:48)
[2017-09-08] MEDS: LACTULOSE SYRUP 20 GM/30 ML CUP PO SCH ×2 (08:47→20:48)
[2017-09-08] MEDS: FUROSEMIDE 20 MG/2 ML VIAL IV PUSH SCH (08:48)
[2017-09-08] MEDS: SODIUM CHLORIDE 0.9% FLUSH 10 ML FLUSH IV FLUSH SCH ×2 (08:49→20:48)
[2017-09-08] MEDS: REMOVE OLD PATCH T-DERMAL SCH (08:49)
[2017-09-08] MEDS: NICOTINE 14 MG/24 HR PATCH T-DERMAL SCH (08:49)
[2017-09-08] MEDS: DOCUSATE SODIUM 100 MG/10 ML UDC PO SCH ×2 (08:50→20:48)
[2017-09-08] MEDS: METOCLOPRAMIDE HCL 10 MG/2 ML VIAL IV PUSH SCH ×3 (09:59→20:50)
--- NOTE | 2017-09-08 10:37 | HHI.GIFU ---
Subjective Remarks GI reconsulted for colonic ileus Getting relistor at this time, Reglan and EES initiated today. Does have bowel sounds +. Per RN increasing NGT output. (Lashell Velazquez) Objective Vitals I&O Vital Signs Date Time Temp Pulse Resp B/P (MAP) Pulse Ox O2 Delivery O2 Flow Rate FiO2 09/08/17 09:03 97 30 09/08/17 06:00 76 09/08/17 04:00 40 09/08/17 04:00 81 09/08/17 04:00 99.5 74 16 120/61 (80) 100 09/08/17 03:44 100 30 09/08/17 02:00 80 09/08/17 00:10 100 35 09/08/17 00:00 88 09/08/17 00:00 98.7 88 16 124/66 (85) 100 09/08/17 00:00 40 09/07/17 22:00 80 09/07/17 20:00 98.9 84 16 105/68 (80) 100 09/07/17 20:00 40 09/07/17 20:00 84 09/07/17 19:49 99 40 09/07/17 18:00 90 09/07/17 16:34 97 40 09/07/17 16:00 40 09/07/17 16:00 94 09/07/17 16:00 99.7 94 16 101/59 (73) 97 09/07/17 14:00 89 09/07/17 12:38 98 40 09/07/17 12:00 100.8 91 16 92/57 (69) 98 09/07/17 12:00 91 09/07/17 12:00 40 I/O 09/07/17 09/07/17 09/07/17 09/08/17 09/08/17 09/08/17 07:00 15:00 23:00 07:00 15:00 23:00 Intake Total 2680 ml 541 ml 410 ml Output Total 810 ml 1620 ml 650 ml Balance 1870 ml -1079 ml -240 ml IV Total 1800 ml Tube Feeding 880 ml 541 ml 410 ml Output Urine Total 790 ml 1350 ml 400 ml Gastric Drainage Total 200 ml 200 ml Drainage Total 20 ml 70 ml 50 ml # Bowel Movements 0 0 0 Laboratory Laboratory Tests Test 09/07/17 11:40 09/07/17 16:20 09/07/17 22:48 09/08/17 04:55 Potassium Level 3.8 3.6 3.4 Activated Partial Thromboplast Time 36.4 37.9 39.7 Urine Color YELLOW Urine Turbidity HAZY Urine pH 6.0 Urine Specific [place] 1.027 Urine Protein 30 Urine Glucose (UA) NEG Urine Ketones NEG Urine Occult Blood LARGE Urine Nitrite NEG Urine Bilirubin NEG Urine Urobilinogen LESS THAN 2.0 Urine Leukocyte Esterase NEG Urine RBC Urine WBC 32 Urine Squamous Epithelial Cells <1 Urine Amorphous Sediment RARE Urine Bacteria RARE Urine Mucus FEW Microscopic Urinalysis Comment CATH-CULTURE IND Blood Urea Nitrogen 30 31 Creatinine 1.22 1.15 Random Glucose 128 102 Calcium Level 8.0 7.9 Sodium Level 150 150 Chloride Level 116 116 Carbon Dioxide Level 27.2 26.3 Anion Gap 7 8 Estimat Glomerular Filtration Rate 66 71 White Blood Count 14.8 Red Blood Count 2.71 Hemoglobin 8.0 Hematocrit 24.6 Mean Corpuscular Volume 91.0 Mean Corpuscular Hemoglobin 29.4 Mean Corpuscular Hemoglobin Concent 32.3 Red Cell Distribution Width 18.7 Platelet Count 98 Mean Platelet Volume 7.3 Neutrophils (%) (Auto) 85.0 Lymphocytes (%) (Auto) 6.6 Monocytes (%) (Auto) 6.6 Eosinophils (%) (Auto) 1.4 Basophils (%) (Auto) 0.4 Neutrophils # (Auto) 12.6 Lymphocytes # (Auto) 1.0 Monocytes # (Auto) 1.0 Eosinophils # (Auto) 0.2 Basophils # (Auto) 0.1 CBC Comment AUTO DIFF Differential Total Cells Counted 100 Neutrophils % (Manual) 87 Band Neutrophils % 2 Lymphocytes % 3 Monocytes % 6 Eosinophils % 2 Neutrophils # (Manual) 13.2 Nucleated Red Blood Cells 2 Differential Comment FINAL DIFF MANUAL Platelet Estimate LOW Platelet Morphology Comment NORMAL Total Protein 4.7 Albumin 1.7 Phosphorus Level 3.2 Magnesium Level 1.8 Alkaline Phosphatase 69 Aspartate Amino Transf (AST/SGOT) 21 Alanine Aminotransferase (ALT/SGPT) 25 Total Bilirubin 0.5 Date/Time Source Procedure Growth Status 09/08/17 04:00 Blood Peripheral Aerobic Blood Culture Pending Received 09/08/17 04:00 Blood Peripheral Anaerobic Blood Culture Pending Received 09/06/17 18:45 Sputum Endotracheal Gram Stain - Final Complete 3/27/18 18:45 Sputum Endotracheal Sputum Culture - Final HEAVY GROWTH NORMAL RESPIRATORY MAXIM Complete 09/07/17 16:20 Urine Catheterized Urine Urine Culture Pending Received Imaging Last Impressions Chest X-Ray 09/08/17 0600 Signed Impressions: Service Date/Time: August 05:49 - CONCLUSION: 1. Stable exam. Support apparatus unchanged. Joel Garcia MD Abdomen X-Ray 09/08/17 0000 Signed Impressions: Service Date/Time: August 06:41 - CONCLUSION: 1. Constipation and colonic ileus with colon distended up to 8.6 cm in diameter. Joel Garcia MD Abdomen/Pelvis CT 09/01/17 0559 Signed Impressions: Service Date/Time: , September 01, 2017 07:15 - CONCLUSION: Nonspecific free peritoneal fluid. No acute focal abnormalities. Juan Rivera MD Chest CT 09/01/17 0000 Signed Impressions: Service Date/Time: August 07:15 - CONCLUSION: No acute CT findings of the chest Juan Rivera MD Physical Exam HEENT: Normocephalic; atraumatic CHEST: CTA on vent CARDIAC: regular rate. + murmur ABDOMEN: BS +. RAYMOND drain RUQ with small amount of serosanguineous drainage, J tube, abdominal binder.[place] midline abd, d&i. NG to LIWS with green colored drainage EXTREMITIES: No clubbing, cyanosis, or edema. SKIN: Normal; no rash; no jaundice. BLOCK HANDLER: sedated on vent (Lashell Velazquez CANDY MAKER) Assessment and Plan Plan ASSESSMENT - coffee ground emesis, melanotic stool - UGIB using mobic for last 2 weeks. 2 weeks ago had mult episodes CGE, last few days melena - anemia - hgb 5.5 on admission, macrocytic. 2/2 above. never had EGD or colonoscopy before. he is not sure if he wants procedures right now - abd pain - c/o lower abd pain but tender diffusely on exam. could be ulcers vs gastritis. CT abd unremarkable aside from nonspecific peritoneal fluid. - chest pain - chest CT neg. hx HOCM, s/p heart valve replacement, recent septomyectomy 2017. Cody Roy [phone]. (09/03) --> S/P EGD yesterday --> Hiatal hernia. large amount of old blood and retained food in stomach, duodenal bulb ulcer blocking duodenal bul, unable to pass scope, abdomen increasingly distended. Pt taken for emergent exploratory laparotomy --> findings of perforated duodenal ulcer with massive contamination. J tube placement. RAYMOND drain placement. Per RN GS planning on starting the pt on TF tomorrow. H/H stable. NGT to LIWS with green colored drainage. No BM per RN. 09/08/17 reconsulted for colon ileus. Pt had KUB this am showed colon ileus, constipation, colon distended 8.6cm. increasing NGT output. TF held. on bowel regimen. EES, reglan, relistor today. will see if that works. PLAN - await relistor, EES, reglan admin - await GS f/u - consider SSE - repeat KUB am Pt has been seen and examined by myself and Dr. Syed and myself and this note is on his behalf (Lashell Velazquez) Physician Comments Seen and examined Agree with above Continue with current supportive care Monitor labs (Pj Syed MD) Lashell Velazquez Sep 08, 2017 10:37 Pj Syed MD Sep 08, 2017 21:08
--- NOTE | 2017-09-08 11:53 | HHI.IDPN ---
Subjective Subjective Remarks afebrilea BP is now on a high side No BM 500 out of NG tube WBC keeps going up (ANC 13+ today) Antibiotics fluconazole zosyn Allergies: Coded Allergies: haloperidol (Unverified Allergy, Severe, DYSTONIC REACTION, 09/01/17) lorazepam (Unverified Allergy, Severe, SEVERE AGITATION, 09/01/17) promethazine (Unverified Allergy, Severe, SEVERE AGITATION, 09/01/17) zolpidem (Unverified Allergy, Severe, severe agitation, 09/01/17) Objective . Vital Signs Date Time Temp Pulse Resp B/P (MAP) Pulse Ox O2 Delivery O2 Flow Rate FiO2 09/08/17 09:03 97 30 09/08/17 06:00 76 09/08/17 04:00 40 09/08/17 04:00 81 09/08/17 04:00 99.5 74 16 120/61 (80) 100 09/08/17 03:44 100 30 09/08/17 02:00 80 09/08/17 00:10 100 35 09/08/17 00:00 88 09/08/17 00:00 98.7 88 16 124/66 (85) 100 09/08/17 00:00 40 09/07/17 22:00 80 09/07/17 20:00 98.9 84 16 105/68 (80) 100 09/07/17 20:00 40 09/07/17 20:00 84 09/07/17 19:49 99 40 09/07/17 18:00 90 09/07/17 16:34 97 40 09/07/17 16:00 40 09/07/17 16:00 94 09/07/17 16:00 99.7 94 16 101/59 (73) 97 09/07/17 14:00 89 09/07/17 12:38 98 40 09/07/17 12:00 100.8 91 16 92/57 (69) 98 09/07/17 12:00 91 09/07/17 12:00 40 . Laboratory Tests Test 09/07/17 06:00 09/08/17 04:55 White Blood Count 18.3 TH/MM3 14.8 TH/MM3 Red Blood Count 3.23 MIL/MM3 2.71 MIL/MM3 Hemoglobin 9.5 GM/DL 8.0 GM/DL Hematocrit 29.8 % 24.6 % Mean Corpuscular Volume 92.3 FL 91.0 FL Mean Corpuscular Hemoglobin 29.6 PG 29.4 PG Mean Corpuscular Hemoglobin Concent 32.0 % 32.3 % Red Cell Distribution Width 19.0 % 18.7 % Platelet Count 117 TH/MM3 98 TH/MM3 Mean Platelet Volume 7.2 FL 7.3 FL Neutrophils (%) (Auto) 85.0 % Lymphocytes (%) (Auto) 6.6 % Monocytes (%) (Auto) 6.6 % Eosinophils (%) (Auto) 1.4 % Basophils (%) (Auto) 0.4 % Neutrophils # (Auto) 12.6 TH/MM3 Lymphocytes # (Auto) 1.0 TH/MM3 Monocytes # (Auto) 1.0 TH/MM3 Eosinophils # (Auto) 0.2 TH/MM3 Basophils # (Auto) 0.1 TH/MM3 CBC Comment AUTO DIFF Differential Total Cells Counted 100 Neutrophils % (Manual) 87 % Band Neutrophils % 2 % Lymphocytes % 3 % Monocytes % 6 % Eosinophils % 2 % Neutrophils # (Manual) 13.2 TH/MM3 Nucleated Red Blood Cells 2 /100 WBC Differential Comment FINAL DIFF MANUAL Platelet Estimate LOW Platelet Morphology Comment NORMAL Laboratory Tests Test 09/06/17 13:50 09/07/17 11:40 09/07/17 16:20 09/08/17 04:55 Potassium Level 3.5 MEQ/L 3.8 MEQ/L 3.6 MEQ/L 3.4 MEQ/L Blood Urea Nitrogen 30 MG/DL 31 MG/DL Creatinine 1.22 MG/DL 1.15 MG/DL Random Glucose 128 MG/DL 102 MG/DL Calcium Level 8.0 MG/DL 7.9 MG/DL Sodium Level 150 MEQ/L 150 MEQ/L Chloride Level 116 MEQ/L 116 MEQ/L Carbon Dioxide Level 27.2 MEQ/L 26.3 MEQ/L Anion Gap 7 MEQ/L 8 MEQ/L Estimat Glomerular Filtration Rate 66 ML/MIN 71 ML/MIN Total Protein 4.7 GM/DL Albumin 1.7 GM/DL Phosphorus Level 3.2 MG/DL Magnesium Level 1.8 MG/DL Alkaline Phosphatase 69 U/L Aspartate Amino Transf (AST/SGOT) 21 U/L Alanine Aminotransferase (ALT/SGPT) 25 U/L Total Bilirubin 0.5 MG/DL Microbiology Date/Time Source Procedure Growth Status 09/08/17 04:00 Blood Peripheral Aerobic Blood Culture Pending Received 09/08/17 04:00 Blood Peripheral Anaerobic Blood Culture Pending Received 09/08/17 03:50 Blood Peripheral Aerobic Blood Culture Pending Received 09/08/17 03:50 Blood Peripheral Anaerobic Blood Culture Pending Received 09/06/17 18:45 Sputum Endotracheal Gram Stain - Final Complete 09/06/17 18:45 Sputum Endotracheal Sputum Culture - Final HEAVY GROWTH NORMAL RESPIRATORY MAXIM Complete 09/07/17 16:20 Urine Catheterized Urine Urine Culture Pending Received Imaging Last Impressions Chest X-Ray 09/08/17 0600 Signed Impressions: Service Date/Time: August 05:49 - CONCLUSION: 1. Stable exam. Support apparatus unchanged. Joel Garcia MD Abdomen X-Ray 09/08/17 0000 Signed Impressions: Service Date/Time: August 06:41 - CONCLUSION: 1. Constipation and colonic ileus with colon distended up to 8.6 cm in diameter. Joel Garcia MD Abdomen/Pelvis CT 09/01/17 0559 Signed Impressions: Service Date/Time: August 07:15 - CONCLUSION: Nonspecific free peritoneal fluid. No acute focal abnormalities. Juan Rivera MD Chest CT 09/01/17 0000 Signed Impressions: Service Date/Time: August 07:15 - CONCLUSION: No acute CT findings of the chest Juan Rivera MD Physical Exam CONSTITUTIONAL/GENERAL: This is an adequately nourished patient, in no apparent distress. Sedated intubated, on vent TUBES/LINES/DRAINS: SKIN: No jaundice, rashes, or lesions. Skin temperature appropriate. Not diaphoretic. EYES: Pupils equal and round and reactive. Extraocular motions intact. No scleral icterus. No injection or drainage. Fundi not examined. NECK: Trachea midline. Supple, nontender. No palpable thyroid enlargement or nodularity. CARDIOVASCULAR: Regular rate and rhythm with 2-3/6 systolic murmur, no gallops , or rubs. Mechanical saini sounds No JVD. Peripheral pulses symmetric. RESPIRATORY/CHEST: Symmetric, unlabored respirations. Clear to auscultation. Breath sounds equal bilaterally. No wheezes, rales, or rhonchi. GASTROINTESTINAL: Abdomen soft, non-tender, nondistended. No hepato-splenomegaly , or palpable masses. No guarding. Bowel sounds abscent BS active GENITOURINARY: Without palpable bladder distension. Donaldson catheter in place with yellow urine MUSCULOSKELETAL: Extremities without clubbing, cyanosis, + 1-2 edema. No joint tenderness or effusion noted. No calf tenderness. No mottling or clubbing. NEUROLOGICAL:Sedated, not following PSYCHIATRIC: unable to assess Assessment & Plan Remarks Perforated duodenal ulcer with massive contamination. Sepsis (bandemia, hemodynamic instability acute VDRF and ARF) Sp prosthetic mech valve Remote h/o endocarditis acute VDRF worsening leukocytosis, Ileus with colon distended up to 8.6 cm in diameter. UTI? - clx P cont zosyn, fluconazole fu repeat blood clx - chk sputum clx, UA/C+S chk CXR consider CT abd/pel dw Dr Martinez, RN Melanie Mohan MD Sep 08, 2017 11:52
[2017-09-08] MEDS: FREE WATER G-TUBE SCH ×2 (12:00→17:37)
--- NOTE | 2017-09-08 14:55 | HHI.PR ---
cc: Joel Watson MD Subjective Subjective Notes DAILY PROGRESS NOTE FOR SURGICAL ATTENDING, DR. JOEL WATSON Intubated/Sedated LALITHA Olivares at bedside Objective Vitals/I&O Vital Signs Date Time Temp Pulse Resp B/P (MAP) Pulse Ox O2 Delivery O2 Flow Rate FiO2 09/08/17 13:29 100 30 09/08/17 06:00 76 09/08/17 04:00 99.5 16 120/61 (80) 09/06/17 09:20 Ventilator Labs Laboratory Tests Test 09/07/17 16:20 09/07/17 22:48 09/08/17 04:55 09/08/17 12:30 Activated Partial Thromboplast Time 36.4 37.9 39.7 35.0 Urine Color YELLOW Urine Turbidity HAZY Urine pH 6.0 Urine Specific [place] 1.027 Urine Protein 30 Urine Glucose (UA) NEG Urine Ketones NEG Urine Occult Blood LARGE Urine Nitrite NEG Urine Bilirubin NEG Urine Urobilinogen LESS THAN 2.0 Urine Leukocyte Esterase NEG Urine RBC Urine WBC 32 Urine Squamous Epithelial Cells <1 Urine Amorphous Sediment RARE Urine Bacteria RARE Urine Mucus FEW Microscopic Urinalysis Comment CATH-CULTURE IND Blood Urea Nitrogen 30 31 Creatinine 1.22 1.15 Random Glucose 128 102 Calcium Level 8.0 7.9 Sodium Level 150 150 Potassium Level 3.6 3.4 Chloride Level 116 116 Carbon Dioxide Level 27.2 26.3 Anion Gap 7 8 Estimat Glomerular Filtration Rate 66 71 White Blood Count 14.8 Red Blood Count 2.71 Hemoglobin 8.0 Hematocrit 24.6 Mean Corpuscular Volume 91.0 Mean Corpuscular Hemoglobin 29.4 Mean Corpuscular Hemoglobin Concent 32.3 Red Cell Distribution Width 18.7 Platelet Count 98 Mean Platelet Volume 7.3 Neutrophils (%) (Auto) 85.0 Lymphocytes (%) (Auto) 6.6 Monocytes (%) (Auto) 6.6 Eosinophils (%) (Auto) 1.4 Basophils (%) (Auto) 0.4 Neutrophils # (Auto) 12.6 Lymphocytes # (Auto) 1.0 Monocytes # (Auto) 1.0 Eosinophils # (Auto) 0.2 Basophils # (Auto) 0.1 CBC Comment AUTO DIFF Differential Total Cells Counted 100 Neutrophils % (Manual) 87 Band Neutrophils % 2 Lymphocytes % 3 Monocytes % 6 Eosinophils % 2 Neutrophils # (Manual) 13.2 Nucleated Red Blood Cells 2 Differential Comment FINAL DIFF MANUAL Platelet Estimate LOW Platelet Morphology Comment NORMAL Total Protein 4.7 Albumin 1.7 Phosphorus Level 3.2 Magnesium Level 1.8 Alkaline Phosphatase 69 Aspartate Amino Transf (AST/SGOT) 21 Alanine Aminotransferase (ALT/SGPT) 25 Total Bilirubin 0.5 Date/Time Source Procedure Growth Status 09/08/17 04:00 Blood Peripheral Aerobic Blood Culture Pending Received 09/08/17 04:00 Blood Peripheral Anaerobic Blood Culture Pending Received 09/06/17 18:45 Sputum Endotracheal Gram Stain - Final Complete 09/06/17 18:45 Sputum Endotracheal Sputum Culture - Final HEAVY GROWTH NORMAL RESPIRATORY MAXIM Complete 09/07/17 16:20 Urine Catheterized Urine Urine Culture - Preliminary NO GROWTH IN 24 HOURS. Resulted Radiology Last Impressions Chest X-Ray 09/04/17 0600 Signed Impressions: Service Date/Time: Monday, September 04, 2017 03:33 - CONCLUSION: 1. No significant change. Armen Rodriguez MD Abdomen X-Ray 09/02/17 1654 Signed Impressions: Service Date/Time: Saturday, September 02, 2017 17:47 - CONCLUSION: 1. Probable free intraperitoneal air. Further evaluation with abdomen and pelvic CT recommended. Joel Garcia MD Abdomen/Pelvis CT 09/01/17 0559 Signed Impressions: Service Date/Time: August 07:15 - CONCLUSION: Nonspecific free peritoneal fluid. No acute focal abnormalities. Juan Rivera MD Chest CT 09/01/17 0000 Signed Impressions: Service Date/Time: August 07:15 - CONCLUSION: No acute CT findings of the chest Juan Rivera MD Cardiovascular: Regular Lungs: Clear Abdomen: Other (midline incision with mary; abdominal binder in place; distended; J tube clamped; Valentin with serous fluid ) Extremities: Other (moderate generalized edema ) Narrative Exam Donaldson in place with clear yellow urine A/P Problem List: (1) Status post exploratory laparotomy ICD Codes: Z98.890 - Other specified postprocedural states Status: Acute (2) Duodenal ulcer perforation ICD Codes: K26.5 - Chronic or unspecified duodenal ulcer with perforation Status: Chronic (3) Duodenal ulcer with perforation ICD Codes: K26.5 - Chronic or unspecified duodenal ulcer with perforation Status: Chronic (4) H/O hypertrophic cardiomyopathy ICD Codes: Z86.79 - Personal history of other diseases of the circulatory system Status: Chronic (5) Perforation of duodenal ulcer ICD Codes: K26.5 - Chronic or unspecified duodenal ulcer with perforation Status: Acute (6) Anemia ICD Codes: D64.9 - Anemia, unspecified Status: Acute (7) GI bleed ICD Codes: K92.2 - Gastrointestinal hemorrhage, unspecified Status: Acute (8) AICD (automatic cardioverter/defibrillator) present ICD Codes: Z95.810 - AICD (automatic cardioverter/defibrillator) present Status: Chronic (9) S/P MVR (mitral valve replacement) ICD Codes: Z95.4 - S/P MVR (mitral valve replacement) Status: Chronic Permanent Comment: Need prophyllaxis - Due to endocarditis Last Edited By: Ozzy Edwards on May 26, 2014 13:06 (10) H/O mitral valve replacement with mechanical valve ICD Codes: Z95.2 - Presence of prosthetic heart valve Status: Chronic (11) Malnutrition ICD Codes: E46 - Unspecified protein-calorie malnutrition Status: Chronic (12) Serum albumin decreased ICD Codes: E88.09 - Other disorders of plasma-protein metabolism, not elsewhere classified Status: Chronic (13) Chronic anticoagulation ICD Codes: Z79.01 - penitentiary (current) use of anticoagulants Status: Chronic Assessment and Plan 41 year old male POD6 ex lap; repair of duodenal ulcer, J tube placement -Vent per CCM; FiO2 40% PEEP 5 -Continue routine VALENTIN care -NGT to LIWS -TF on hold due to ileus -Aggressive bowel regimen -Heparin gtt per Cardiology -Discussed with Dr. Martinez and LALITHA Olivares Attending Statement NOTE FOR SURGICAL ATTENDING, DR. JOEL WATSON I agree with above assessment and plan. The exam, history, and the medical decision-making described in the above note were completed with the assistance of the mid-level provider. I reviewed and agree with the findings presented. I attest that I had a [id number] encounter with the patient on the same day, and personally performed and documented my assessment and findings in the medical record. The following services were provided during this hospital visit: Chart data review, vital sign assessments/reviewing monitor data Review of consultations notes if present. Medication orders/review and/or management Ordering and/or reviewing lab tests Ordering and/or interpreting/reviewing x-rays and/or diagnostic studies Care of the patient and discussion of the patient with the care team Documentation time To help prompt me to consider important information that might be impacting today's encounter and assessment, information from prior notes written by myself or my colleagues may have been "brought forward/copy and pasted" into today's note. Problem Qualifiers (1) Anemia: Qualified Codes: D62 - Acute posthemorrhagic anemia (2) GI bleed: Qualified Codes: K26.4 - Chronic or unspecified duodenal ulcer with hemorrhage (3) Malnutrition: Ines Valentino/First Kamaljit RODRÍGUEZ Sep 08, 2017 14:55 Joel Watson MD Sep 09, 2017 18:31
[2017-09-08] MEDS: FLUCONAZOLE 400 MG PREMIX BAG 200 ML IV SCH (17:34)
[2017-09-08] MEDS: HEPARIN-D5W 25,000 U/250 ML 250 ML IV PRN (17:37)
--- NOTE | 2017-09-08 23:37 | PD.CARD.PN ---
Subjective Subjective Remarks Patient was seen this afternoon, late entry note Currently intubated Objective Medications Current Medications Medications (Trade) Dose Ordered Sig/Khushboo Route Start Time Stop Time Status Last Admin (Protonix Inj) 40 mg Q12HR IV PUSH 09/01/17 09:30 09/08/17 20:48 (NS Flush) 2 ml UNSCH PRN IV FLUSH 09/01/17 09:30 (NS Flush) 2 ml BID IV FLUSH 09/01/17 21:00 09/08/17 20:48 (Zofran Inj) 4 mg Q6H PRN IVP 09/01/17 09:30 (Morphine Inj) 2 mg Q3H PRN IV PUSH 09/01/17 09:30 09/02/17 12:28 (Morphine Inj) 4 mg Q3H PRN IV PUSH 09/01/17 09:30 09/07/17 04:56 (Narcan Inj) 0.4 mg UNSCH PRN IV PUSH 09/01/17 09:30 (Milk Of Magnesia Liq) 30 ml Q12H PRN PO 09/01/17 09:30 09/07/17 09:24 (Senokot) 17.2 mg Q12H PRN PO 09/01/17 09:30 (Dulcolax Supp) 10 mg DAILY PRN RECTAL 09/01/17 09:30 09/08/17 08:51 (Morphine Inj) 4 mg Q3H PRN IV PUSH 09/01/17 10:15 Miscellaneous Information 1 DAILY T-DERMAL 09/02/17 09:00 09/08/17 08:49 (Habitrol 14 Mg Patch.24 Hr) 1 patch DAILY T-DERMAL 09/02/17 09:00 09/08/17 08:49 (Abilify) 5 mg BID PO 09/01/17 21:00 09/08/17 08:46 (Cymbalta Dr) 30 mg DAILY PO 09/01/17 11:45 09/08/17 08:46 (KlonoPIN) 0.5 mg Q8HR PRN PO 09/01/17 20:45 09/02/17 12:46 Fluconazole/ Sodium Chloride 200 ml @ 100 mls/hr Q24H IV 09/03/17 18:00 09/08/17 17:34 Propofol 100 ml @ 1.98 mls/hr TITRATE PRN IV 09/02/17 20:30 09/08/17 14:55 Norepinephrine Bitartrate 250 ml @ 7.5 mls/hr TITRATE PRN IV 09/02/17 20:30 09/03/17 18:47 Fentanyl Citrate 250 ml @ 5 mls/hr TITRATE PRN IV 09/03/17 01:00 09/07/17 23:30 Midazolam HCl 100 ml @ 2 mls/hr TITRATE PRN IV 09/03/17 01:00 09/08/17 14:55 Piperacillin Sod/ Tazobactam Sod 50 ml @ 100 mls/hr Q6H IV 09/03/17 14:00 09/08/17 20:48 Dexmedetomidine HCl 1000 mcg/ Sodium Chloride 250 ml @ 3.77 mls/hr TITRATE PRN IV 09/04/17 12:30 09/05/17 01:00 (Heparin Inj) 5,000 units UNSCH PRN IV PUSH 09/04/17 20:30 (Heparin Inj) 2,500 units UNSCH PRN IV PUSH 09/04/17 20:30 Heparin Sodium/ Dextrose 250 ml @ 9 mls/hr TITRATE PRN IV 09/04/17 14:30 09/08/17 17:37 Miscellaneous Information D/C ICU ELECTROLYTE ORDERS... UNSCH PRN .XX 09/06/17 04:15 Miscellaneous Information ICU - CALL ORDERING PHYSIC... UNSCH PRN .XX 09/06/17 04:15 Potassium Chloride 100 ml @ 25 mls/hr UNSCH PRN IV 09/06/17 04:15 09/06/17 18:50 (K-Lyte Cl Eff) 50 meq UNSCH PRN PO 09/06/17 04:15 Potassium Chloride 100 ml @ 50 mls/hr UNSCH PRN IV 09/06/17 04:15 Magnesium Sulfate 4 gm/Sodium Chloride 108 ml @ 54 mls/hr UNSCH PRN IV 09/06/17 04:15 Magnesium Sulfate 2 gm/Sodium Chloride 104 ml @ 52 mls/hr UNSCH PRN IV 09/06/17 04:15 (Mag-Ox) 800 mg UNSCH PRN PO 09/06/17 04:15 Sodium Phosphate 30 mmol/Sodium Chloride 260 ml @ 43.333 mls/ hr UNSCH PRN IV 09/06/17 04:15 (K-Phos) 2,000 mg UNSCH PRN PO 09/06/17 04:15 Potassium Phosphate 30 mmol/ Sodium Chloride 260 ml @ 43.333 mls/ hr UNSCH PRN IV 09/06/17 04:15 (Lasix Inj) 20 mg DAILY IV PUSH 09/06/17 09:00 09/08/17 08:48 (Tylenol 650 Mg/ 20 ml Liq) 650 mg Q6H PRN NG 09/07/17 14:30 09/07/17 15:56 (Tears Naturale Opth Soln) 1 drop Q8HR EACH EYE 09/07/17 22:00 09/08/17 20:20 (Colace Liq) 100 mg Q12HR PO 09/07/17 21:00 09/08/17 20:48 (Senna Liq) 8.8 mg BID PO 09/07/17 21:00 09/08/17 20:48 (Miralax) 17 gm BID PO 09/07/17 21:00 09/08/17 20:48 Albumin Human 50 ml @ 60 mls/hr Q12H IV 09/07/17 16:00 09/09/17 15:59 09/08/17 14:52 (Lactulose Liq) 30 ml BID PO 09/08/17 09:00 09/08/17 20:48 (Free Water) 300 ml Q6HR G-TUBE 09/08/17 12:00 09/08/17 17:37 (Reglan Inj) 5 mg Q8HR IV PUSH 09/08/17 08:15 09/08/17 20:50 (Ees 200 Mg/5 ml Liq) 200 mg Q8HR PO 09/08/17 08:15 09/08/17 20:50 Vital Signs / I&O Vital Signs Date Time Temp Pulse Resp B/P (MAP) Pulse Ox O2 Delivery O2 Flow Rate FiO2 09/08/17 22:00 89 09/08/17 20:00 100.0 89 16 113/76 (88) 100 09/08/17 20:00 89 09/08/17 20:00 30 09/08/17 19:44 100 30 09/08/17 18:00 83 09/08/17 17:27 98 30 3/29/18 16:00 30 09/08/17 16:00 92 09/08/17 16:00 100.2 84 16 109/70 (83) 100 09/08/17 14:00 94 09/08/17 13:29 100 30 09/08/17 12:00 30 09/08/17 12:00 99.7 92 16 133/85 (101) 100 09/08/17 12:00 98 09/08/17 10:00 90 09/08/17 09:03 97 30 09/08/17 08:00 100.4 80 16 125/78 (94) 100 09/08/17 08:00 99 09/08/17 08:00 30 09/08/17 06:00 76 09/08/17 04:00 40 09/08/17 04:00 81 09/08/17 04:00 99.5 74 16 120/61 (80) 100 09/08/17 03:44 100 30 09/08/17 02:00 80 09/08/17 00:10 100 35 09/08/17 00:00 88 09/08/17 00:00 98.7 88 16 124/66 (85) 100 09/08/17 00:00 40 I/O 09/08/17 09/08/17 09/08/17 09/09/17 09/09/17 09/09/17 07:00 15:00 23:00 07:00 15:00 23:00 Intake Total 410 ml 600 ml Output Total 650 ml 2880 ml Balance -240 ml -2280 ml Tube Feeding 410 ml 0 ml Other 600 ml Output Urine Total 400 ml 1750 ml Gastric Drainage Total 200 ml 1100 ml Drainage Total 50 ml 30 ml # Bowel Movements 0 0 Physical Exam GENERAL: Intubated and sedated SKIN: Warm and dry. HEAD: Atraumatic. Normocephalic. EYES: Pupils equal and round. No scleral icterus. No injection or drainage. ENT: No nasal bleeding or discharge. Mucous membranes pink and moist. NECK: Trachea midline. No JVD. CARDIOVASCULAR: Regular rate and rhythm. 1/6 creascendo-decrescendo murmur to the RSB, mechanical click noted RESPIRATORY: No accessory muscle use. Clear to auscultation. Breath sounds equal bilaterally. GASTROINTESTINAL: Abdomen soft, non-tender, nondistended. Hepatic and splenic margins not palpable. MUSCULOSKELETAL: Extremities without clubbing, cyanosis, or edema. No obvious deformities. NEUROLOGICAL: Intubated and sedated Laboratory Laboratory Tests Test 09/08/17 04:55 09/08/17 12:30 09/08/17 19:57 White Blood Count 14.8 TH/MM3 Red Blood Count 2.71 MIL/MM3 Hemoglobin 8.0 GM/DL Hematocrit 24.6 % Mean Corpuscular Volume 91.0 FL Mean Corpuscular Hemoglobin 29.4 PG Mean Corpuscular Hemoglobin Concent 32.3 % Red Cell Distribution Width 18.7 % Platelet Count 98 TH/MM3 Mean Platelet Volume 7.3 FL Neutrophils (%) (Auto) 85.0 % Lymphocytes (%) (Auto) 6.6 % Monocytes (%) (Auto) 6.6 % Eosinophils (%) (Auto) 1.4 % Basophils (%) (Auto) 0.4 % Neutrophils # (Auto) 12.6 TH/MM3 Lymphocytes # (Auto) 1.0 TH/MM3 Monocytes # (Auto) 1.0 TH/MM3 Eosinophils # (Auto) 0.2 TH/MM3 Basophils # (Auto) 0.1 TH/MM3 CBC Comment AUTO DIFF Differential Total Cells Counted 100 Neutrophils % (Manual) 87 % Band Neutrophils % 2 % Lymphocytes % 3 % Monocytes % 6 % Eosinophils % 2 % Neutrophils # (Manual) 13.2 TH/MM3 Nucleated Red Blood Cells 2 /100 WBC Differential Comment FINAL DIFF MANUAL Platelet Estimate LOW Platelet Morphology Comment NORMAL Activated Partial Thromboplast Time 39.7 SEC 35.0 SEC 36.8 SEC Blood Urea Nitrogen 31 MG/DL Creatinine 1.15 MG/DL Random Glucose 102 MG/DL Total Protein 4.7 GM/DL Albumin 1.7 GM/DL Calcium Level 7.9 MG/DL Phosphorus Level 3.2 MG/DL Magnesium Level 1.8 MG/DL Alkaline Phosphatase 69 U/L Aspartate Amino Transf (AST/SGOT) 21 U/L Alanine Aminotransferase (ALT/SGPT) 25 U/L Total Bilirubin 0.5 MG/DL Sodium Level 150 MEQ/L Potassium Level 3.4 MEQ/L Chloride Level 116 MEQ/L Carbon Dioxide Level 26.3 MEQ/L Anion Gap 8 MEQ/L Estimat Glomerular Filtration Rate 71 ML/MIN Imaging Last 24 hours Impressions Chest X-Ray 09/08/17 0600 Signed Impressions: Service Date/Time: August 05:49 - CONCLUSION: 1. Stable exam. Support apparatus unchanged. Joel Garcia MD Abdomen X-Ray 09/08/17 0000 Signed Impressions: Service Date/Time: August 06:41 - CONCLUSION: 1. Constipation and colonic ileus with colon distended up to 8.6 cm in diameter. Joel Garcia MD Assessment and Plan Problem List: (1) Familial hypertrophic cardiomyopathy ICD Codes: I42.2 - Other hypertrophic cardiomyopathy (2) H/O hypertrophic cardiomyopathy ICD Codes: Z86.79 - Personal history of other diseases of the circulatory system Status: Chronic (3) H/O mitral valve replacement with mechanical valve ICD Codes: Z95.2 - Presence of prosthetic heart valve Status: Chronic (4) GI bleed ICD Codes: K92.2 - Gastrointestinal hemorrhage, unspecified Status: Acute (5) S/P MVR (mitral valve replacement) ICD Codes: Z95.4 - S/P MVR (mitral valve replacement) Status: Chronic Permanent Comment: Need prophyllaxis - Due to endocarditis Last Edited By: Ozzy Edwards on May 26, 2014 13:06 (6) Congestive heart failure ICD Codes: I50.9 - Congestive heart failure Status: Acute (7) History of endocarditis ICD Codes: Z86.79 - History of endocarditis Status: Acute (8) AICD (automatic cardioverter/defibrillator) present ICD Codes: Z95.810 - AICD (automatic cardioverter/defibrillator) present Status: Chronic Assessment and Plan 1) EGD with perforation s/p Jay patch 2) Mechanical mitral valve Restarted on Heparin drip No signs of bleeding Hgb stable 3) Hx HOCM Previous septal myectomy Normal ejection fraction on echo, no gradient noted from previous HOCM s/p septal myectomy 4) GI Bleed Most likely secondary to NSAID use 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 Problem Qualifiers (1) GI bleed: Qualified Codes: K26.4 - Chronic or unspecified duodenal ulcer with hemorrhage Angelo Cabrales DO Sep 08, 2017 23:37
[2017-09-09] VITALS (17 sets, daily range): BP systolic 120–142; BP diastolic 76–90; PULSE 77–97; RESP 16–20; TEMP 98.2–101; O2SAT 95–100
[2017-09-09] MEDS: MORPHINE SULFATE 4 MG/ML INJ IV PUSH PRN (00:34)
--- NOTE | 2017-09-09 00:34 | PD.CARD.PN ---
Subjective Subjective Remarks Patient was seen this afternoon, late entry note Currently intubated Objective Medications Current Medications Medications (Trade) Dose Ordered Sig/Khushboo Route Start Time Stop Time Status Last Admin (Protonix Inj) 40 mg Q12HR IV PUSH 09/01/17 09:30 09/08/17 20:48 (NS Flush) 2 ml UNSCH PRN IV FLUSH 09/01/17 09:30 (NS Flush) 2 ml BID IV FLUSH 09/01/17 21:00 09/08/17 20:48 (Zofran Inj) 4 mg Q6H PRN IVP 09/01/17 09:30 (Morphine Inj) 2 mg Q3H PRN IV PUSH 09/01/17 09:30 09/02/17 12:28 (Morphine Inj) 4 mg Q3H PRN IV PUSH 09/01/17 09:30 09/07/17 04:56 (Narcan Inj) 0.4 mg UNSCH PRN IV PUSH 09/01/17 09:30 (Milk Of Magnesia Liq) 30 ml Q12H PRN PO 09/01/17 09:30 09/07/17 09:24 (Senokot) 17.2 mg Q12H PRN PO 09/01/17 09:30 (Dulcolax Supp) 10 mg DAILY PRN RECTAL 09/01/17 09:30 09/08/17 08:51 (Morphine Inj) 4 mg Q3H PRN IV PUSH 09/01/17 10:15 Miscellaneous Information 1 DAILY T-DERMAL 09/02/17 09:00 09/08/17 08:49 (Habitrol 14 Mg Patch.24 Hr) 1 patch DAILY T-DERMAL 09/02/17 09:00 09/08/17 08:49 (Abilify) 5 mg BID PO 09/01/17 21:00 09/08/17 08:46 (Cymbalta Dr) 30 mg DAILY PO 09/01/17 11:45 09/08/17 08:46 (KlonoPIN) 0.5 mg Q8HR PRN PO 09/01/17 20:45 09/02/17 12:46 Fluconazole/ Sodium Chloride 200 ml @ 100 mls/hr Q24H IV 09/03/17 18:00 09/08/17 17:34 Propofol 100 ml @ 1.98 mls/hr TITRATE PRN IV 09/02/17 20:30 09/08/17 14:55 Norepinephrine Bitartrate 250 ml @ 7.5 mls/hr TITRATE PRN IV 09/02/17 20:30 09/03/17 18:47 Fentanyl Citrate 250 ml @ 5 mls/hr TITRATE PRN IV 09/03/17 01:00 09/07/17 23:30 Midazolam HCl 100 ml @ 2 mls/hr TITRATE PRN IV 09/03/17 01:00 09/08/17 14:55 Piperacillin Sod/ Tazobactam Sod 50 ml @ 100 mls/hr Q6H IV 09/03/17 14:00 09/08/17 20:48 Dexmedetomidine HCl 1000 mcg/ Sodium Chloride 250 ml @ 3.77 mls/hr TITRATE PRN IV 09/04/17 12:30 09/05/17 01:00 (Heparin Inj) 5,000 units UNSCH PRN IV PUSH 09/04/17 20:30 (Heparin Inj) 2,500 units UNSCH PRN IV PUSH 09/04/17 20:30 Heparin Sodium/ Dextrose 250 ml @ 9 mls/hr TITRATE PRN IV 09/04/17 14:30 09/08/17 17:37 Miscellaneous Information D/C ICU ELECTROLYTE ORDERS... UNSCH PRN .XX 09/06/17 04:15 Miscellaneous Information ICU - CALL ORDERING PHYSIC... UNSCH PRN .XX 09/06/17 04:15 Potassium Chloride 100 ml @ 25 mls/hr UNSCH PRN IV 09/06/17 04:15 09/06/17 18:50 (K-Lyte Cl Eff) 50 meq UNSCH PRN PO 09/06/17 04:15 Potassium Chloride 100 ml @ 50 mls/hr UNSCH PRN IV 09/06/17 04:15 Magnesium Sulfate 4 gm/Sodium Chloride 108 ml @ 54 mls/hr UNSCH PRN IV 09/06/17 04:15 Magnesium Sulfate 2 gm/Sodium Chloride 104 ml @ 52 mls/hr UNSCH PRN IV 09/06/17 04:15 (Mag-Ox) 800 mg UNSCH PRN PO 09/06/17 04:15 Sodium Phosphate 30 mmol/Sodium Chloride 260 ml @ 43.333 mls/ hr UNSCH PRN IV 09/06/17 04:15 (K-Phos) 2,000 mg UNSCH PRN PO 09/06/17 04:15 Potassium Phosphate 30 mmol/ Sodium Chloride 260 ml @ 43.333 mls/ hr UNSCH PRN IV 09/06/17 04:15 (Lasix Inj) 20 mg DAILY IV PUSH 09/06/17 09:00 09/08/17 08:48 (Tylenol 650 Mg/ 20 ml Liq) 650 mg Q6H PRN NG 09/07/17 14:30 09/07/17 15:56 (Tears Naturale Opth Soln) 1 drop Q8HR EACH EYE 09/07/17 22:00 09/08/17 20:20 (Colace Liq) 100 mg Q12HR PO 09/07/17 21:00 09/08/17 20:48 (Senna Liq) 8.8 mg BID PO 09/07/17 21:00 09/08/17 20:48 (Miralax) 17 gm BID PO 09/07/17 21:00 09/08/17 20:48 Albumin Human 50 ml @ 60 mls/hr Q12H IV 09/07/17 16:00 09/09/17 15:59 09/08/17 14:52 (Lactulose Liq) 30 ml BID PO 09/08/17 09:00 09/08/17 20:48 (Free Water) 300 ml Q6HR G-TUBE 09/08/17 12:00 09/09/17 00:00 (Reglan Inj) 5 mg Q8HR IV PUSH 09/08/17 08:15 09/08/17 20:50 (Ees 200 Mg/5 ml Liq) 200 mg Q8HR PO 09/08/17 08:15 09/08/17 20:50 Vital Signs / I&O Vital Signs Date Time Temp Pulse Resp B/P (MAP) Pulse Ox O2 Delivery O2 Flow Rate FiO2 09/08/17 22:00 89 09/08/17 20:00 100.0 89 16 113/76 (88) 100 09/08/17 20:00 89 09/08/17 20:00 30 09/08/17 19:44 100 30 09/08/17 18:00 83 09/08/17 17:27 98 30 3/29/18 16:00 30 09/08/17 16:00 92 09/08/17 16:00 100.2 84 16 109/70 (83) 100 09/08/17 14:00 94 09/08/17 13:29 100 30 09/08/17 12:00 30 09/08/17 12:00 99.7 92 16 133/85 (101) 100 09/08/17 12:00 98 09/08/17 10:00 90 09/08/17 09:03 97 30 09/08/17 08:00 100.4 80 16 125/78 (94) 100 09/08/17 08:00 99 09/08/17 08:00 30 09/08/17 06:00 76 09/08/17 04:00 40 09/08/17 04:00 81 09/08/17 04:00 99.5 74 16 120/61 (80) 100 09/08/17 03:44 100 30 09/08/17 02:00 80 I/O 09/08/17 09/08/17 09/08/17 09/09/17 09/09/17 09/09/17 07:00 15:00 23:00 07:00 15:00 23:00 Intake Total 410 ml 600 ml Output Total 650 ml 2880 ml Balance -240 ml -2280 ml Tube Feeding 410 ml 0 ml Other 600 ml Output Urine Total 400 ml 1750 ml Gastric Drainage Total 200 ml 1100 ml Drainage Total 50 ml 30 ml # Bowel Movements 0 0 Physical Exam GENERAL: Intubated and sedated SKIN: Warm and dry. HEAD: Atraumatic. Normocephalic. EYES: Pupils equal and round. No scleral icterus. No injection or drainage. ENT: No nasal bleeding or discharge. Mucous membranes pink and moist. NECK: Trachea midline. No JVD. CARDIOVASCULAR: Regular rate and rhythm. 1/6 creascendo-decrescendo murmur to the RSB, mechanical click noted RESPIRATORY: No accessory muscle use. Clear to auscultation. Breath sounds equal bilaterally. GASTROINTESTINAL: Abdomen soft, non-tender, nondistended. Hepatic and splenic margins not palpable. MUSCULOSKELETAL: Extremities without clubbing, cyanosis, or edema. No obvious deformities. NEUROLOGICAL: Intubated and sedated Laboratory Laboratory Tests Test 09/08/17 04:55 09/08/17 12:30 09/08/17 19:57 White Blood Count 14.8 TH/MM3 Red Blood Count 2.71 MIL/MM3 Hemoglobin 8.0 GM/DL Hematocrit 24.6 % Mean Corpuscular Volume 91.0 FL Mean Corpuscular Hemoglobin 29.4 PG Mean Corpuscular Hemoglobin Concent 32.3 % Red Cell Distribution Width 18.7 % Platelet Count 98 TH/MM3 Mean Platelet Volume 7.3 FL Neutrophils (%) (Auto) 85.0 % Lymphocytes (%) (Auto) 6.6 % Monocytes (%) (Auto) 6.6 % Eosinophils (%) (Auto) 1.4 % Basophils (%) (Auto) 0.4 % Neutrophils # (Auto) 12.6 TH/MM3 Lymphocytes # (Auto) 1.0 TH/MM3 Monocytes # (Auto) 1.0 TH/MM3 Eosinophils # (Auto) 0.2 TH/MM3 Basophils # (Auto) 0.1 TH/MM3 CBC Comment AUTO DIFF Differential Total Cells Counted 100 Neutrophils % (Manual) 87 % Band Neutrophils % 2 % Lymphocytes % 3 % Monocytes % 6 % Eosinophils % 2 % Neutrophils # (Manual) 13.2 TH/MM3 Nucleated Red Blood Cells 2 /100 WBC Differential Comment FINAL DIFF MANUAL Platelet Estimate LOW Platelet Morphology Comment NORMAL Activated Partial Thromboplast Time 39.7 SEC 35.0 SEC 36.8 SEC Blood Urea Nitrogen 31 MG/DL Creatinine 1.15 MG/DL Random Glucose 102 MG/DL Total Protein 4.7 GM/DL Albumin 1.7 GM/DL Calcium Level 7.9 MG/DL Phosphorus Level 3.2 MG/DL Magnesium Level 1.8 MG/DL Alkaline Phosphatase 69 U/L Aspartate Amino Transf (AST/SGOT) 21 U/L Alanine Aminotransferase (ALT/SGPT) 25 U/L Total Bilirubin 0.5 MG/DL Sodium Level 150 MEQ/L Potassium Level 3.4 MEQ/L Chloride Level 116 MEQ/L Carbon Dioxide Level 26.3 MEQ/L Anion Gap 8 MEQ/L Estimat Glomerular Filtration Rate 71 ML/MIN Imaging Last 24 hours Impressions Chest X-Ray 09/08/17 0600 Signed Impressions: Service Date/Time: August 05:49 - CONCLUSION: 1. Stable exam. Support apparatus unchanged. Joel Garcia MD Assessment and Plan Problem List: (1) Familial hypertrophic cardiomyopathy ICD Codes: I42.2 - Other hypertrophic cardiomyopathy (2) H/O hypertrophic cardiomyopathy ICD Codes: Z86.79 - Personal history of other diseases of the circulatory system Status: Chronic (3) H/O mitral valve replacement with mechanical valve ICD Codes: Z95.2 - Presence of prosthetic heart valve Status: Chronic (4) GI bleed ICD Codes: K92.2 - Gastrointestinal hemorrhage, unspecified Status: Acute (5) S/P MVR (mitral valve replacement) ICD Codes: Z95.4 - S/P MVR (mitral valve replacement) Status: Chronic Permanent Comment: Need prophyllaxis - Due to endocarditis Last Edited By: Ozzy Edwards on May 26, 2014 13:06 (6) Congestive heart failure ICD Codes: I50.9 - Congestive heart failure Status: Acute (7) History of endocarditis ICD Codes: Z86.79 - History of endocarditis Status: Acute (8) AICD (automatic cardioverter/defibrillator) present ICD Codes: Z95.810 - AICD (automatic cardioverter/defibrillator) present Status: Chronic Assessment and Plan 1) EGD with perforation s/p Jay patch 2) Mechanical mitral valve Restarted on Heparin drip No signs of bleeding Hgb stable Plan to restart Coumadin once more stable and less chance of repeat surgery needed 3) Hx HOCM Previous septal myectomy Normal ejection fraction on echo, no gradient noted from previous HOCM s/p septal myectomy 4) GI Bleed Most likely secondary to NSAID use 5) Eligibility Examiner, 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 Problem Qualifiers (1) GI bleed: Qualified Codes: K26.4 - Chronic or unspecified duodenal ulcer with hemorrhage Angelo Cabrales DO Sep 09, 2017 00:34
[2017-09-09] MEDS: PIPERACIL-TAZO 3.375 GM PREMIX 50 ML IV SCH ×4 (01:27→20:09)
[2017-09-09] MEDS: PROPOFOL 1000 MG/100 ML IV PRN ×5 (02:03→22:30)
[2017-09-09] MEDS: ALBUMIN 25% INJ 50 ML IV SCH (03:14)
[2017-09-09 04:39] LABS: AUTOMATED NEUTROPHIL # 12.6 TH/MM3 (1.8-7.7); BASOPHIL # 0.1 TH/MM3 (0-0.2); BASOPHIL % 0.4 % (0.0-2.0); EOSINOPHIL # 0.1 TH/MM3 (0-0.4); EOSINOPHIL % 0.7 % (0.0-4.0); HEMATOCRIT 23.3 % (39.0-51.0); HEMOGLOBIN 7.7 GM/DL (13.0-17.0); LYMPH % 7.1 % (9.0-44.0); MEAN CELL VOLUME 90.1 FL (80.0-100.0); MEAN CORPUSCULAR HEMOGLOBIN 29.6 PG (27.0-34.0); MEAN CORPUSCULAR HGB CONC 32.9 % (32.0-36.0); MEAN PLATELET VOLUME 7.7 FL (7.0-11.0); MONO % 5.8 % (0.0-8.0); MONOCYTE # 0.8 TH/MM3 (0-0.9); PLATELET COUNT 117 TH/MM3 (150-450); RED BLOOD COUNT 2.59 MIL/MM3 (4.50-5.90); RED CELL DISTRIBUTION WIDTH 18.7 % (11.6-17.2); WHITE BLOOD COUNT 14.6 TH/MM3 (4.0-11.0)
[2017-09-09 04:59] LABS: BICARBONATE 28.2 MEQ/L (21.0-32.0); CALCIUM 8.2 MG/DL (8.5-10.1); CREATININE 1.15 MG/DL (0.60-1.30); MAGNESIUM 1.7 MG/DL (1.5-2.5); PHOSPHORUS 4.1 MG/DL (2.5-4.9)
[2017-09-09] MEDS: ARTIFICIAL TEARS OPTH SOLN 15 ML BTL EACH EYE SCH ×3 (05:27→22:31)
[2017-09-09] MEDS: FREE WATER G-TUBE SCH ×4 (05:27→17:48)
--- NOTE | 2017-09-09 05:32 | RADRPT ---
EXAM DATE/TIME: 09/09/2017 04:25 [facility] COMPARISON: CT ABDOMEN & PELVIS W/O CONTRAST, September 01, 2017, 7:15. ABDOMEN KUB ONLY, September 08, 2017, 6:41. INDICATIONS : Ileus. MEDICAL HISTORY : Myocardial infarction. Congestive heart failure. Hypertension. SURGICAL HISTORY : Mitral valve replacement. Perforated duodenal ulcer repair. ENCOUNTER: Subsequent ACUITY: 1 week PAIN SCORE: Non-responsive. LOCATION: Abdomen. FINDINGS: Colonic distention again noted but appears modestly improved, currently about 6.5 cm maximum. There a re right mid and left lower quadrant drains present. Surgical mary related to a recent midline lap arotomy again noted. Nasogastric tube within a decompressed stomach again noted. CONCLUSION: Persistent ileus but slightly improved. Juan Trotter MD on September 09, 2017 at 5:27 Board Certified Radiologist. This report was verified electronically.
[2017-09-09] MEDS: METOCLOPRAMIDE HCL 10 MG/2 ML VIAL IV PUSH SCH ×3 (05:34→22:31)
[2017-09-09] MEDS: ERYTHROMYCIN ETHYLSUCCINATE 200 MG/5 ML SUSP 100 ML BOTTLE PO SCH ×3 (05:34→22:31)
[2017-09-09] MEDS: ICU - POTASSIUM CHLORIDE/AQUEOUS SOLN 40 MEQ/100 ML IVPB IV PRN ×3 (05:59→20:11)
[2017-09-09] MEDS: ARIPiprazole 5 MG TAB PO SCH ×2 (09:00→22:32)
[2017-09-09] MEDS: DULoxetine HCl DR 30 MG CAP PO SCH (09:00)
[2017-09-09] MEDS: NICOTINE 14 MG/24 HR PATCH T-DERMAL SCH (09:02)
[2017-09-09] MEDS: SODIUM CHLORIDE 0.9% FLUSH 10 ML FLUSH IV FLUSH SCH ×2 (09:02→22:31)
[2017-09-09] MEDS: PANTOPRAZOLE SODIUM 40 MG VIAL IV PUSH SCH ×2 (09:02→20:10)
[2017-09-09] MEDS: FUROSEMIDE 20 MG/2 ML VIAL IV PUSH SCH (09:02)
[2017-09-09] MEDS: POLYETHYLENE GLYCOL 17 GM PKG PO SCH ×2 (09:02→20:11)
[2017-09-09] MEDS: REMOVE OLD PATCH T-DERMAL SCH (09:03)
[2017-09-09] MEDS: LACTULOSE SYRUP 20 GM/30 ML CUP PO SCH ×2 (09:29→20:10)
[2017-09-09] MEDS: SENNOSIDES SYRUP 8.8 MG/5 ML CUP PO SCH ×2 (09:29→20:10)
[2017-09-09] MEDS: DOCUSATE SODIUM 100 MG/10 ML UDC PO SCH ×2 (09:29→20:10)
--- NOTE | 2017-09-09 10:48 | HHI.GIFU ---
Subjective Remarks Pt intubated on vent. Still with copious NGT output. Reportedly 1 moderate BM overnight. (Lashell Velazquez) Objective Vitals I&O Vital Signs Date Time Temp Pulse Resp B/P (MAP) Pulse Ox O2 Delivery O2 Flow Rate FiO2 09/09/17 08:26 30 09/09/17 08:14 98 30 09/09/17 08:00 30 09/09/17 06:00 89 09/09/17 04:13 100 30 09/09/17 04:00 30 09/09/17 04:00 77 09/09/17 04:00 99.6 77 16 120/76 (91) 100 09/09/17 02:00 82 09/09/17 01:50 100 30 09/09/17 00:41 18 09/09/17 00:00 97 09/09/17 00:00 99.7 97 17 123/80 (94) 99 09/09/17 00:00 30 09/08/17 22:00 89 09/08/17 20:00 100.0 89 16 113/76 (88) 100 09/08/17 20:00 89 09/08/17 20:00 30 09/08/17 19:44 100 30 09/08/17 18:00 83 09/08/17 17:27 98 30 09/08/17 16:00 30 09/08/17 16:00 92 09/08/17 16:00 100.2 84 16 109/70 (83) 100 09/08/17 14:00 94 09/08/17 13:29 100 30 09/08/17 12:00 30 09/08/17 12:00 99.7 92 16 133/85 (101) 100 09/08/17 12:00 98 I/O 09/08/17 09/08/17 09/08/17 09/09/17 09/09/17 09/09/17 07:00 15:00 23:00 07:00 15:00 23:00 Intake Total 410 ml 600 ml 600 ml Output Total 650 ml 2880 ml 620 ml Balance -240 ml -2280 ml -20 ml Tube Feeding 410 ml 0 ml 0 ml Other 600 ml 600 ml Output Urine Total 400 ml 1750 ml 550 ml Gastric Drainage Total 200 ml 1100 ml 50 ml Drainage Total 50 ml 30 ml 20 ml # Bowel Movements 0 0 1 Laboratory Laboratory Tests Test 09/08/17 12:30 09/08/17 19:57 09/09/17 02:05 09/09/17 04:13 Activated Partial Thromboplast Time 35.0 36.8 38.4 White Blood Count 14.6 Red Blood Count 2.59 Hemoglobin 7.7 Hematocrit 23.3 Mean Corpuscular Volume 90.1 Mean Corpuscular Hemoglobin 29.6 Mean Corpuscular Hemoglobin Concent 32.9 Red Cell Distribution Width 18.7 Platelet Count 117 Mean Platelet Volume 7.7 Neutrophils (%) (Auto) 86.0 Lymphocytes (%) (Auto) 7.1 Monocytes (%) (Auto) 5.8 Eosinophils (%) (Auto) 0.7 Basophils (%) (Auto) 0.4 Neutrophils # (Auto) 12.6 Lymphocytes # (Auto) 1.0 Monocytes # (Auto) 0.8 Eosinophils # (Auto) 0.1 Basophils # (Auto) 0.1 CBC Comment DIFF FINAL Differential Comment Blood Urea Nitrogen 31 Creatinine 1.15 Random Glucose 90 Calcium Level 8.2 Phosphorus Level 4.1 Magnesium Level 1.7 Sodium Level 148 Potassium Level 3.4 Chloride Level 111 Carbon Dioxide Level 28.2 Anion Gap 9 Estimat Glomerular Filtration Rate 71 Test 09/09/17 08:31 Activated Partial Thromboplast Time 39.3 Date/Time Source Procedure Growth Status 09/08/17 04:00 Blood Peripheral Aerobic Blood Culture Pending Received 09/08/17 04:00 Blood Peripheral Anaerobic Blood Culture Pending Received 09/06/17 18:45 Sputum Endotracheal Gram Stain - Final Complete 09/06/17 18:45 Sputum Endotracheal Sputum Culture - Final HEAVY GROWTH NORMAL RESPIRATORY MAXIM Complete 09/07/17 16:20 Urine Catheterized Urine Urine Culture - Final NO GROWTH IN 48 HOURS. Complete Imaging Last Impressions Abdomen X-Ray 09/09/17 06 Signed Impressions: Service Date/Time: Saturday, September 09, 2017 04:25 - CONCLUSION: Persistent ileus but slightly improved. Juan Trotter MD Chest X-Ray 09/08/17 0600 Signed Impressions: Service Date/Time: August 05:49 - CONCLUSION: 1. Stable exam. Support apparatus unchanged. Joel Garcia MD Abdomen/Pelvis CT 09/01/17 0559 Signed Impressions: Service Date/Time: August 07:15 - CONCLUSION: Nonspecific free peritoneal fluid. No acute focal abnormalities. Juan Rivera MD Chest CT 09/01/17 0000 Signed Impressions: Service Date/Time: August 07:15 - CONCLUSION: No acute CT findings of the chest Juan Rivera MD Physical Exam HEENT: Normocephalic; atraumatic intubated CHEST: CTA on vent CARDIAC: regular rate. + murmur ABDOMEN: BS + but hypoactive, mildly distended, tympany RAYMOND drain RUQ , J tube , abdominal binder.primapore midline abd, d&i. NG to LIWS with green colored drainage EXTREMITIES: No clubbing, cyanosis, or edema. SKIN: Normal; no rash; no jaundice. CYBER SECURITY: sedated on vent (Lashell Velazquez) Assessment and Plan Plan ASSESSMENT - coffee ground emesis, melanotic stool - UGIB using mobic for last 2 weeks. 2 weeks ago had mult episodes CGE, last few days melena - anemia - hgb 5.5 on admission, macrocytic. 2/2 above. never had EGD or colonoscopy before. he is not sure if he wants procedures right now - abd pain - c/o lower abd pain but tender diffusely on exam. could be ulcers vs gastritis. CT abd unremarkable aside from nonspecific peritoneal fluid. - chest pain - chest CT neg. hx HOCM, s/p heart valve replacement, recent septomyectomy 2017. Cody Roy [phone]. (09/03) --> S/P EGD yesterday --> Hiatal hernia. large amount of old blood and retained food in stomach, duodenal bulb ulcer blocking duodenal bul, unable to pass scope, abdomen increasingly distended. Pt taken for emergent exploratory laparotomy --> findings of perforated duodenal ulcer with massive contamination. J tube placement. RAYMOND drain placement. Per RN GS planning on starting the pt on TF tomorrow. H/H stable. NGT to LIWS with green colored drainage. No BM per RN. 09/08/17 reconsulted for colon ileus. Pt had KUB this am showed colon ileus, constipation, colon distended 8.6cm. increasing NGT output. TF held. on bowel regimen. EES, reglan, relistor today. will see if that works. 09/09/17. KUB showed persistent ileus but with some improvement. + moderate BM reported. going for CT. on EES, reglan, bowel regimen PLAN - await CT abd - consider SSE, rectal tube, repeat relistor tomorrow - depending on CT findings - repeat KUB am - supportive care Pt has been seen and examined by myself and Dr. Syed and myself and this note is on his behalf (Lashell Velazquez) Physician Comments Patient seen and examined Agree with above Continue with current supportive care Monitor labs CT shows persistent ileus Repeat Relistor tomorrow Monitor KUB (Pj Syed MD) Lashell Velazquez Sep 09, 2017 10:48 Pj Syed MD Sep 09, 2017 23:13
--- NOTE | 2017-09-09 10:49 | HHI.PR ---
cc: Joel Watson MD Subjective Subjective Notes DAILY PROGRESS NOTE FOR SURGICAL ATTENDING, DR. JOEL WATSON Intubated/Sedated foamy bilious drainage coming form mouth Objective Vitals/I&O Vital Signs Date Time Temp Pulse Resp B/P (MAP) Pulse Ox O2 Delivery O2 Flow Rate FiO2 09/09/17 08:26 30 09/09/17 08:14 98 09/09/17 06:00 89 09/09/17 04:00 99.6 16 120/76 (91) 09/06/17 09:20 Ventilator Labs Laboratory Tests Test 09/08/17 12:30 09/08/17 19:57 09/09/17 02:05 09/09/17 04:13 Activated Partial Thromboplast Time 35.0 36.8 38.4 White Blood Count 14.6 Red Blood Count 2.59 Hemoglobin 7.7 Hematocrit 23.3 Mean Corpuscular Volume 90.1 Mean Corpuscular Hemoglobin 29.6 Mean Corpuscular Hemoglobin Concent 32.9 Red Cell Distribution Width 18.7 Platelet Count 117 Mean Platelet Volume 7.7 Neutrophils (%) (Auto) 86.0 Lymphocytes (%) (Auto) 7.1 Monocytes (%) (Auto) 5.8 Eosinophils (%) (Auto) 0.7 Basophils (%) (Auto) 0.4 Neutrophils # (Auto) 12.6 Lymphocytes # (Auto) 1.0 Monocytes # (Auto) 0.8 Eosinophils # (Auto) 0.1 Basophils # (Auto) 0.1 CBC Comment DIFF FINAL Differential Comment Blood Urea Nitrogen 31 Creatinine 1.15 Random Glucose 90 Calcium Level 8.2 Phosphorus Level 4.1 Magnesium Level 1.7 Sodium Level 148 Potassium Level 3.4 Chloride Level 111 Carbon Dioxide Level 28.2 Anion Gap 9 Estimat Glomerular Filtration Rate 71 Test 09/09/17 08:31 Activated Partial Thromboplast Time 39.3 Date/Time Source Procedure Growth Status 09/08/17 04:00 Blood Peripheral Aerobic Blood Culture Pending Received 09/08/17 04:00 Blood Peripheral Anaerobic Blood Culture Pending Received 09/06/17 18:45 Sputum Endotracheal Gram Stain - Final Complete 09/06/17 18:45 Sputum Endotracheal Sputum Culture - Final HEAVY GROWTH NORMAL RESPIRATORY MAXIM Complete 09/07/17 16:20 Urine Catheterized Urine Urine Culture - Final NO GROWTH IN 48 HOURS. Complete Radiology Last Impressions Abdomen X-Ray 09/09/17 0600 Signed Impressions: Service Date/Time: Saturday, September 09, 2017 04:25 - CONCLUSION: Persistent ileus but slightly improved. Juan Trotter MD Abdomen/Pelvis CT 09/09/17 0000 Signed Impressions: Service Date/Time: Saturday, September 09, 2017 16:36 - CONCLUSION: 1. New bilateral pleural effusions and consolidation in both posterior lung bases left greater than right with air bronchograms. 2. Abnormal bowel gas pattern most consistent with an ileus. 3. Bilateral percutaneous drainage catheters in place. 4. Cardiomegaly. Patient is status post median sternotomy. Armen Rodriguez MD Chest X-Ray 09/08/17 0600 Signed Impressions: Service Date/Time: August 05:49 - CONCLUSION: 1. Stable exam. Support apparatus unchanged. Joel Garcia MD Chest CT 09/01/17 0000 Signed Impressions: Service Date/Time: August 07:15 - CONCLUSION: No acute CT findings of the chest Juan Rivera MD Last Impressions Chest X-Ray 09/04/17 0600 Signed Impressions: Service Date/Time: Monday, September 04, 2017 03:33 - CONCLUSION: 1. No significant change. Armen Rodriguez MD Abdomen X-Ray 09/02/17 1654 Signed Impressions: Service Date/Time: Saturday, September 02, 2017 17:47 - CONCLUSION: 1. Probable free intraperitoneal air. Further evaluation with abdomen and pelvic CT recommended. Joel Garcia MD Abdomen/Pelvis CT 09/01/17 0559 Signed Impressions: Service Date/Time: August 07:15 - CONCLUSION: Nonspecific free peritoneal fluid. No acute focal abnormalities. Juan Rivera MD Chest CT 09/01/17 0000 Signed Impressions: Service Date/Time: August 07:15 - CONCLUSION: No acute CT findings of the chest Juan Rivera MD Cardiovascular: Regular Lungs: Clear Abdomen: Other (distended; midline incision with stapes; RAYMOND with serous drainage; J tube continues to be clamped ) Extremities: Other (mild generalized edema ) Narrative Exam Donaldson in place with clear yellow urine A/P Problem List: (1) Status post exploratory laparotomy ICD Codes: Z98.890 - Other specified postprocedural states Status: Acute (2) Duodenal ulcer perforation ICD Codes: K26.5 - Chronic or unspecified duodenal ulcer with perforation Status: Chronic (3) Duodenal ulcer with perforation ICD Codes: K26.5 - Chronic or unspecified duodenal ulcer with perforation Status: Chronic (4) H/O hypertrophic cardiomyopathy ICD Codes: Z86.79 - Personal history of other diseases of the circulatory system Status: Chronic (5) Perforation of duodenal ulcer ICD Codes: K26.5 - Chronic or unspecified duodenal ulcer with perforation Status: Acute (6) Anemia ICD Codes: D64.9 - Anemia, unspecified Status: Acute (7) GI bleed ICD Codes: K92.2 - Gastrointestinal hemorrhage, unspecified Status: Acute (8) AICD (automatic cardioverter/defibrillator) present ICD Codes: Z95.810 - AICD (automatic cardioverter/defibrillator) present Status: Chronic (9) S/P MVR (mitral valve replacement) ICD Codes: Z95.4 - S/P MVR (mitral valve replacement) Status: Chronic Permanent Comment: Need prophyllaxis - Due to endocarditis Last Edited By: Ozzy Edwards on May 26, 2014 13:06 (10) H/O mitral valve replacement with mechanical valve ICD Codes: Z95.2 - Presence of prosthetic heart valve Status: Chronic (11) Malnutrition ICD Codes: E46 - Unspecified protein-calorie malnutrition Status: Chronic (12) Serum albumin decreased ICD Codes: E88.09 - Other disorders of plasma-protein metabolism, not elsewhere classified Status: Chronic (13) Chronic anticoagulation ICD Codes: Z79.01 - MCFP (current) use of anticoagulants Status: Chronic Assessment and Plan 41 year old male POD7 ex lap; repair of duodenal ulcer, J tube placement -CT abd/pelvis today -Vent per CCM -Continue routine RAYMOND care -NGT to LIWS -Cotinue to hold TF due to ileus -Continue aggressive bowel regimen -Heparin gtt per Cardiology -Discussed with Dr. Martinez and LALITHA Shelley Attending Statement NOTE FOR SURGICAL ATTENDING, DR. JOEL WATSON I agree with above assessment and plan. The exam, history, and the medical decision-making described in the above note were completed with the assistance of the mid-level provider. I reviewed and agree with the findings presented. I attest that I had a [id number] encounter with the patient on the same day, and personally performed and documented my assessment and findings in the medical record. The following services were provided during this hospital visit: Chart data review, vital sign assessments/reviewing monitor data Review of consultations notes if present. Medication orders/review and/or management Ordering and/or reviewing lab tests Ordering and/or interpreting/reviewing x-rays and/or diagnostic studies Care of the patient and discussion of the patient with the care team Documentation time To help prompt me to consider important information that might be impacting today's encounter and assessment, information from prior notes written by myself or my colleagues may have been "brought forward/copy and pasted" into today's note. Problem Qualifiers (1) Anemia: Qualified Codes: D62 - Acute posthemorrhagic anemia (2) GI bleed: Qualified Codes: K26.4 - Chronic or unspecified duodenal ulcer with hemorrhage (3) Malnutrition: Ines Valentino/First Kamaljit RODRÍGUEZ Sep 09, 2017 10:49 Joel Watson MD Sep 09, 2017 18:33
[2017-09-09] MEDS: HEPARIN-D5W 25,000 U/250 ML 250 ML IV PRN (11:10)
--- NOTE | 2017-09-09 11:13 | PD.CARD.PN ---
Subjective Subjective Remarks No changes overnight Hemodynamically stable BM overnight Objective Medications Current Medications Medications (Trade) Dose Ordered Sig/Khushboo Route Start Time Stop Time Status Last Admin (Protonix Inj) 40 mg Q12HR IV PUSH 09/01/17 09:30 09/09/17 09:02 (NS Flush) 2 ml UNSCH PRN IV FLUSH 09/01/17 09:30 (NS Flush) 2 ml BID IV FLUSH 09/01/17 21:00 09/09/17 09:02 (Zofran Inj) 4 mg Q6H PRN IVP 09/01/17 09:30 (Morphine Inj) 2 mg Q3H PRN IV PUSH 09/01/17 09:30 09/02/17 12:28 (Morphine Inj) 4 mg Q3H PRN IV PUSH 09/01/17 09:30 09/09/17 00:34 (Narcan Inj) 0.4 mg UNSCH PRN IV PUSH 09/01/17 09:30 (Milk Of Magnesia Liq) 30 ml Q12H PRN PO 09/01/17 09:30 09/07/17 09:24 (Senokot) 17.2 mg Q12H PRN PO 09/01/17 09:30 (Dulcolax Supp) 10 mg DAILY PRN RECTAL 09/01/17 09:30 09/08/17 08:51 (Morphine Inj) 4 mg Q3H PRN IV PUSH 09/01/17 10:15 Miscellaneous Information 1 DAILY T-DERMAL 09/02/17 09:00 09/09/17 09:03 (Habitrol 14 Mg Patch.24 Hr) 1 patch DAILY T-DERMAL 09/02/17 09:00 09/09/17 09:02 (Abilify) 5 mg BID PO 09/01/17 21:00 09/08/17 08:46 (Cymbalta Dr) 30 mg DAILY PO 09/01/17 11:45 09/08/17 08:46 (KlonoPIN) 0.5 mg Q8HR PRN PO 09/01/17 20:45 09/02/17 12:46 Fluconazole/ Sodium Chloride 200 ml @ 100 mls/hr Q24H IV 09/03/17 18:00 09/08/17 17:34 Propofol 100 ml @ 1.98 mls/hr TITRATE PRN IV 09/02/17 20:30 09/09/17 07:33 Norepinephrine Bitartrate 250 ml @ 7.5 mls/hr TITRATE PRN IV 09/02/17 20:30 09/03/17 18:47 Fentanyl Citrate 250 ml @ 5 mls/hr TITRATE PRN IV 09/03/17 01:00 09/07/17 23:30 Midazolam HCl 100 ml @ 2 mls/hr TITRATE PRN IV 09/03/17 01:00 09/08/17 14:55 Piperacillin Sod/ Tazobactam Sod 50 ml @ 100 mls/hr Q6H IV 09/03/17 14:00 09/09/17 09:01 Dexmedetomidine HCl 1000 mcg/ Sodium Chloride 250 ml @ 3.77 mls/hr TITRATE PRN IV 09/04/17 12:30 09/05/17 01:00 (Heparin Inj) 5,000 units UNSCH PRN IV PUSH 09/04/17 20:30 (Heparin Inj) 2,500 units UNSCH PRN IV PUSH 09/04/17 20:30 Heparin Sodium/ Dextrose 250 ml @ 9 mls/hr TITRATE PRN IV 09/04/17 14:30 09/09/17 11:10 Miscellaneous Information D/C ICU ELECTROLYTE ORDERS... UNSCH PRN .XX 09/06/17 04:15 Miscellaneous Information ICU - CALL ORDERING PHYSIC... UNSCH PRN .XX 09/06/17 04:15 Potassium Chloride 100 ml @ 25 mls/hr UNSCH PRN IV 09/06/17 04:15 09/09/17 05:59 (K-Lyte Cl Eff) 50 meq UNSCH PRN PO 09/06/17 04:15 Potassium Chloride 100 ml @ 50 mls/hr UNSCH PRN IV 09/06/17 04:15 Magnesium Sulfate 4 gm/Sodium Chloride 108 ml @ 54 mls/hr UNSCH PRN IV 09/06/17 04:15 Magnesium Sulfate 2 gm/Sodium Chloride 104 ml @ 52 mls/hr UNSCH PRN IV 09/06/17 04:15 (Mag-Ox) 800 mg UNSCH PRN PO 09/06/17 04:15 Sodium Phosphate 30 mmol/Sodium Chloride 260 ml @ 43.333 mls/ hr UNSCH PRN IV 09/06/17 04:15 (K-Phos) 2,000 mg UNSCH PRN PO 09/06/17 04:15 Potassium Phosphate 30 mmol/ Sodium Chloride 260 ml @ 43.333 mls/ hr UNSCH PRN IV 09/06/17 04:15 (Lasix Inj) 20 mg DAILY IV PUSH 09/06/17 09:00 09/09/17 09:02 (Tylenol 650 Mg/ 20 ml Liq) 650 mg Q6H PRN NG 09/07/17 14:30 09/07/17 15:56 (Tears Naturale Opth Soln) 1 drop Q8HR EACH EYE 09/07/17 22:00 09/09/17 05:27 (Colace Liq) 100 mg Q12HR PO 09/07/17 21:00 09/09/17 09:29 (Senna Liq) 8.8 mg BID PO 09/07/17 21:00 09/09/17 09:29 (Miralax) 17 gm BID PO 09/07/17 21:00 09/09/17 09:02 Albumin Human 50 ml @ 60 mls/hr Q12H IV 09/07/17 16:00 09/09/17 15:59 09/09/17 03:14 (Lactulose Liq) 30 ml BID PO 09/08/17 09:00 09/09/17 09:29 (Free Water) 300 ml Q6HR G-TUBE 09/08/17 12:00 09/09/17 05:27 (Reglan Inj) 5 mg Q8HR IV PUSH 09/08/17 08:15 09/09/17 05:34 (Ees 200 Mg/5 ml Liq) 200 mg Q8HR PO 09/08/17 08:15 09/09/17 05:34 Vital Signs / I&O Vital Signs Date Time Temp Pulse Resp B/P (MAP) Pulse Ox O2 Delivery O2 Flow Rate FiO2 09/09/17 08:26 30 09/09/17 08:14 98 30 09/09/17 08:00 30 09/09/17 06:00 89 09/09/17 04:13 100 30 09/09/17 04:00 30 09/09/17 04:00 77 09/09/17 04:00 99.6 77 16 120/76 (91) 100 09/09/17 02:00 82 3/30/18 01:50 100 30 09/09/17 00:41 18 09/09/17 00:00 97 09/09/17 00:00 99.7 97 17 123/80 (94) 99 09/09/17 00:00 30 09/08/17 22:00 89 09/08/17 20:00 100.0 89 16 113/76 (88) 100 09/08/17 20:00 89 09/08/17 20:00 30 09/08/17 19:44 100 30 09/08/17 18:00 83 09/08/17 17:27 98 30 09/08/17 16:00 30 09/08/17 16:00 92 09/08/17 16:00 100.2 84 16 109/70 (83) 100 09/08/17 14:00 94 09/08/17 13:29 100 30 09/08/17 12:00 30 09/08/17 12:00 99.7 92 16 133/85 (101) 100 09/08/17 12:00 98 I/O 09/08/17 09/08/17 09/08/17 09/09/17 09/09/17 09/09/17 07:00 15:00 23:00 07:00 15:00 23:00 Intake Total 410 ml 600 ml 600 ml Output Total 650 ml 2880 ml 620 ml Balance -240 ml -2280 ml -20 ml Tube Feeding 410 ml 0 ml 0 ml Other 600 ml 600 ml Output Urine Total 400 ml 1750 ml 550 ml Gastric Drainage Total 200 ml 1100 ml 50 ml Drainage Total 50 ml 30 ml 20 ml # Bowel Movements 0 0 1 Physical Exam GENERAL: Intubated and sedated SKIN: Warm and dry. HEAD: Atraumatic. Normocephalic. EYES: Pupils equal and round. No scleral icterus. No injection or drainage. ENT: No nasal bleeding or discharge. Mucous membranes pink and moist. NECK: Trachea midline. No JVD. CARDIOVASCULAR: Regular rate and rhythm. 1/6 creascendo-decrescendo murmur to the RSB, mechanical click noted RESPIRATORY: No accessory muscle use. Clear to auscultation. Breath sounds equal bilaterally. GASTROINTESTINAL: Abdomen soft, non-tender, nondistended. Hepatic and splenic margins not palpable. MUSCULOSKELETAL: Extremities without clubbing, cyanosis, or edema. No obvious deformities. NEUROLOGICAL: Intubated and sedated Laboratory Laboratory Tests Test 09/08/17 12:30 09/08/17 19:57 09/09/17 02:05 09/09/17 04:13 Activated Partial Thromboplast Time 35.0 SEC 36.8 SEC 38.4 SEC White Blood Count 14.6 TH/MM3 Red Blood Count 2.59 MIL/MM3 Hemoglobin 7.7 GM/DL Hematocrit 23.3 % Mean Corpuscular Volume 90.1 FL Mean Corpuscular Hemoglobin 29.6 PG Mean Corpuscular Hemoglobin Concent 32.9 % Red Cell Distribution Width 18.7 % Platelet Count 117 TH/MM3 Mean Platelet Volume 7.7 FL Neutrophils (%) (Auto) 86.0 % Lymphocytes (%) (Auto) 7.1 % Monocytes (%) (Auto) 5.8 % Eosinophils (%) (Auto) 0.7 % Basophils (%) (Auto) 0.4 % Neutrophils # (Auto) 12.6 TH/MM3 Lymphocytes # (Auto) 1.0 TH/MM3 Monocytes # (Auto) 0.8 TH/MM3 Eosinophils # (Auto) 0.1 TH/MM3 Basophils # (Auto) 0.1 TH/MM3 CBC Comment DIFF FINAL Differential Comment Blood Urea Nitrogen 31 MG/DL Creatinine 1.15 MG/DL Random Glucose 90 MG/DL Calcium Level 8.2 MG/DL Phosphorus Level 4.1 MG/DL Magnesium Level 1.7 MG/DL Sodium Level 148 MEQ/L Potassium Level 3.4 MEQ/L Chloride Level 111 MEQ/L Carbon Dioxide Level 28.2 MEQ/L Anion Gap 9 MEQ/L Estimat Glomerular Filtration Rate 71 ML/MIN Test 09/09/17 08:31 Activated Partial Thromboplast Time 39.3 SEC Imaging Last 24 hours Impressions Abdomen X-Ray 09/09/17 0600 Signed Impressions: Service Date/Time: Saturday, September 09, 2017 04:25 - CONCLUSION: Persistent ileus but slightly improved. Juan Trotter MD Assessment and Plan Problem List: (1) Familial hypertrophic cardiomyopathy ICD Codes: I42.2 - Other hypertrophic cardiomyopathy (2) H/O hypertrophic cardiomyopathy ICD Codes: Z86.79 - Personal history of other diseases of the circulatory system Status: Chronic (3) H/O mitral valve replacement with mechanical valve ICD Codes: Z95.2 - Presence of prosthetic heart valve Status: Chronic (4) GI bleed ICD Codes: K92.2 - Gastrointestinal hemorrhage, unspecified Status: Acute (5) S/P MVR (mitral valve replacement) ICD Codes: Z95.4 - S/P MVR (mitral valve replacement) Status: Chronic Permanent Comment: Need prophyllaxis - Due to endocarditis Last Edited By: Ozzy Edwards on May 26, 2014 13:06 (6) Congestive heart failure ICD Codes: I50.9 - Congestive heart failure Status: Acute (7) History of endocarditis ICD Codes: Z86.79 - History of endocarditis Status: Acute (8) AICD (automatic cardioverter/defibrillator) present ICD Codes: Z95.810 - AICD (automatic cardioverter/defibrillator) present Status: Chronic Assessment and Plan 1) EGD with perforation s/p Jay patch 2) Mechanical mitral valve Restarted on Heparin drip Plan to restart Coumadin once more stable and less chance of repeat surgery needed 3) Hx HOCM Previous septal myectomy Normal ejection fraction on echo, no gradient noted from previous HOCM s/p septal myectomy 4) GI Bleed Most likely secondary to NSAID use 5) Order Detailer, 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 6) Dr. Ogden available over the weekend PRN if concerns Problem Qualifiers (1) GI bleed: Qualified Codes: K26.4 - Chronic or unspecified duodenal ulcer with hemorrhage Angelo Cabrales DO Sep 09, 2017 11:13
[2017-09-09] MEDS ORDERED: POTASSIUM CHLOR 20 MEQ PREMIX 100 ML IV ONE (11:30)
[2017-09-09] MEDS ORDERED: DIATRIZOATE MEGLUM/DIATRIZOATE SOD 9 ML CUP PO ONE (11:45)
[2017-09-09] MEDS ORDERED: POTASSIUM CHLORIDE INJ 30 MEQ in SODIUM CHLORIDE 0.9% INJ 100 ML IV-CENTRAL ONE (12:00)
[2017-09-09] MEDS: ACETAMINOPHEN 650 MG/20.3 ML UDC NG PRN (12:39)
[2017-09-09] MEDS: MAGNESIUM SULFATE 1 GM PREMIX 100 ML IV SCH ×2 (12:39→13:56)
--- NOTE | 2017-09-09 13:21 | HHI.CCPN ---
Subjective Remarks/Hospital Course 09/02: 41-year-old male who presented to [facility] on 09/01/2017 after having episodes of coffee-ground emesis. The patient has had some sternotomy pain and chronic back pain, and so he was told to take Mobic twice a day. He started getting nauseous. After this, he started having coffee ground emesis. He underwent endoscopy examination by Dr. Frazier when he became clinically unstable and his abdomen became rock hard. He was emergently transferred to operating room where he underwent Exploratory laparotomy, Jay patch of a 1 cm duodenal ulcer with duodenal ulcer repair, placement of drain at the duodenum, feeding jejunostomy tube placement and abdominal washout by Drs. Varma and Shirley. Postprocedure he was transferred to intensive care unit where he was weaned off the mechanical ventilation and extubated following CPAP trial, however his respiration became more labored, patient became hypoxemic and respiratory distress requiring reintubation and continue mechanical ventilation. 09/03: He remains intubated and sedated. Currently he is on norepinephrine for BP support at 8 mcg/minute. FiO2 down to 45%. Sedation currently achieved with midazolam, propofol and fentanyl infusions. Urine output is low, T-max 99.3. No family present at bedside. Morning chest x-ray reviewed, ET tube in place, right subclavian central line, pulmonary vascular congestion, possible retrocardiac infiltrate. 09/04: Patient did well over the night. Norepinephrine is off. Current heart rate in the 70s. Propofol was stopped, and fentanyl and midazolam infusions. Patient becomes easily agitated with stimulation moving all extremities but that does not follow any commands. T-max of 98.8. I/O 2241/1550. 09/05: Remains sedated, orally intubated on mechanical ventilation. On J-tube feeds at 20 cc per hour. FiO2 70% PEEP increased to +10 09/06: Remains sedated, orally intubated on mechanical ventilation. FiO2 50%, PEEP +10. Being diuresed. Tolerating J-tube feeds which are being advanced. 09/07: Low-grade temperatures. White blood cell count slowly increasing. Sputum 09/06 no growth today. Blood cultures 2 and urine ordered for today. Tube feeds Jevity 1.5 at goal 50 cc an hour. No problem. 09/08: T-max 100.8. Currently afebrile. No bowel movement overnight. 50 cc from RAYMOND tube. Increasing NG tube output greenish. Continues to tolerate tube feeding. PEEP down to 5. Subjective 09/09: T-max 100.2. Currently 98.2. One bowel movement documented. RAYMOND -50 cc. Still with copious output from OG. CT abdomen/pelvis ordered by general surgery. Objective Vital Signs Date Time Temp Pulse Resp B/P (MAP) Pulse Ox O2 Delivery O2 Flow Rate FiO2 09/09/17 12:00 30 09/09/17 12:00 101.0 96 17 137/86 (103) 100 09/06/17 09:20 Ventilator Intake and Output 09/09/17 09/09/17 09/10/17 08:00 16:00 00:00 Intake Total 600 ml Output Total 620 ml Balance -20 ml Result Diagram: 09/09/17 0413 09/09/17 0413 Other Results Microbiology Date/Time Source Procedure Growth Status 09/08/17 04:00 Blood Peripheral Aerobic Blood Culture - Preliminary NO GROWTH IN 1 DAY Resulted 09/08/17 04:00 Blood Peripheral Anaerobic Blood Culture - Preliminary NO GROWTH IN 1 DAY Resulted 09/06/17 18:45 Sputum Endotracheal Gram Stain - Final Complete 09/06/17 18:45 Sputum Endotracheal Sputum Culture - Final HEAVY GROWTH NORMAL RESPIRATORY MAXIM Complete 09/07/17 16:20 Urine Catheterized Urine Urine Culture - Final NO GROWTH IN 48 HOURS. Complete Imaging Last Impressions Abdomen X-Ray 09/09/17 06 Signed Impressions: Service Date/Time: Saturday, September 09, 2017 04:25 - CONCLUSION: Persistent ileus but slightly improved. Juan Trotter MD Chest X-Ray 09/08/17 0600 Signed Impressions: Service Date/Time: August 05:49 - CONCLUSION: 1. Stable exam. Support apparatus unchanged. Joel Garcia MD Abdomen/Pelvis CT 09/01/17 0559 Signed Impressions: Service Date/Time: August 07:15 - CONCLUSION: Nonspecific free peritoneal fluid. No acute focal abnormalities. Juan Rivera MD Chest CT 09/01/17 0000 Signed Impressions: Service Date/Time: August 07:15 - CONCLUSION: No acute CT findings of the chest Juan Rivera MD Procedures None Objective Remarks General -41-year-old male currently orotracheally intubated HEENT - pupils are equal and reactive about 3 mm bilaterally, sclerae are anicteric, neck is supple, no rigidity, no JVD, no carotid bruit, orally intubated, + NGT in left nares CV -RRR. Metallic valve closure click Chest - scattered coarse breath sounds b/l, good air entry, no wheezes Abdomen - soft, non-distended, mildly tender, BS decreased, abdominal binder/ dressing over the surgical site -clean, J tube in place. RAYMOND tube right-sided 50 cc SS output overnight Skin -no skin breakdown noted Extremities - warm and well perfused, no edema, + peripheral pulses, no clubbing Neuro - intubated, sedated, moving all extremities Urinary Catheter: Yes Assessment to: Continue Donaldson insert reason: Prolonged Immobilization Assessment to: Continue Date of Insertion: Sep 02, 2017 Line: Central Venous Catheter Side: Right Location: Subclavian A/P Assessment and Plan Neuro/Psych: Depression Currently midazolam drip at 8 mg an hour, propofol drip at 50 micrograms per kilogram per minute for sedation while intubated Goal of RASS -2 Daily sedation vacation Continue Aripiprazole 5 mg twice daily and duloxetine 30 mg daily/home medications for depression/anxiety CV: HOCM History of mechanical mitral valve replacement ([facility] [facility], for previous endocarditis 2000) History of hypertrophic cardiomyopathy, status post septal myomectomy 2069 History of AICD 2013 Hypertension 2D echocardiogram revealed ejection fraction 60% percent. Hypertrophic cardio myopathy. Clinical mitral valve. Moderate MR. Followed by cardiology/Dr. Cabrales Holding atenolol 50 mg twice daily due to hypotension. Resume beta-vannessa when clinically indicated/more hemodynamically stable Resp: Acute hypoxic respiratory failure Tobacco ACV 16/500/5/30 Ventilator bundle Albuterol/ipratropium aerosols every 6 hours with albuterol aerosols every 2 hours as needed dyspnea Spontaneous breathing trials today with attempt extubation Nicotine patch 14 mg daily. When appropriate self-evaluation tobacco cessation booklet will be provided GI: Hypoalbuminemia Elevated AST Constipation Colonic ileus Jevity 1.5-50 cc an hour currently at goal Free water 300 cc every 6 hours Pantoprazole for GI prophylaxis Docusate sodium 100 mg twice daily, senna 8.6 mg twice daily and polyethylene glycol 17 g twice daily and lactulose 30 cc twice daily. Bowel regimen. Methylnaltrexone 12 mg subcu 1 now. Check KUB -colonic ileus 09/02/29. Add metoclopramide 5 mg every 8 hours, E- Mycin 200 mg every 8 hours. Recheck KUB in a.m. Surgery ordered CT abdomen/pelvis today 09/10 GI also following actively : Donaldson catheter has been placed for accurate I's and O's in a critically ill patient Endo: Sliding scale insulin if indicated to maintain euglycemia TSH 2.37 Renal: Acute kidney injury Creatinine currently downward trend. Likely secondary to ATN/sepsis. Slowly normalizing Recheck BMP in a.m. Free water 300 cc every 6 hours Heme: Acute blood loss anemia Leukocytosis Normocytic anemia Thrombocytopenia History of chronic warfarin use 2.5 mg daily Heparin drip currently at 1000 units an hour Transfuse 5 RBCs and 4 FFP during this hospitalization Hemoglobin currently 8.0 ID: Severe sepsis Currently on continuous dosed piperacillin/tazobactam and fluconazole per Dr. Mohan/infectious Pertinent cultures 09/08 -blood cultures 2 -no growth 09/07 -urine culture -no growth 09/06 -sputum -no growth 09/03 -blood cultures 2 -no growth FEN: Hypernatremia Hypokalemia Replace electrolytes as clinically indicated 50 mEq KCl 1 now. Recheck in a.m. MSK: Holding meloxicam 7.5 mg daily light of acute GI bleed PT evaluate and treat Access -Right subclavian CVL placed 09/02 at present -Left radial arterial line 09/02 to 09/08 Prophylaxis -GI -pantoprazole -DVT -SCD/heparin drip D/W Ines nurse practitioner for general surgery Discussed with family and bedside Level 3 follow-up Miles Martinez MD Sep 09, 2017 13:21
[2017-09-09] MEDS ORDERED: RESP: ALBUTEROL 2.5 MG/3 ML NEB (PRN) NEB (13:30)
[2017-09-09] MEDS ORDERED: MINERAL OIL EMULSION 55% PO ONE (14:00)
[2017-09-09] MEDS ORDERED: METHYLNALTREXONE BROMIDE 12 MG/0.6 ML VIAL SQ ONE (15:00)
[2017-09-09] MEDS ORDERED: IOHEXOL 350 MG/ML 10 ML VIAL (for RAD DIAG) IVCONTRAST ONE (16:58)
--- NOTE | 2017-09-09 17:47 | RADRPT ---
EXAM DATE/TIME: 09/09/2017 16:36 [facility] COMPARISON: CT ABDOMEN & PELVIS W/O CONTRAST, September 01, 2017, 7:15. INDICATIONS : Post operative evaluation. IV CONTRAST: 100 cc Omnipaque 350 (iohexol) IV ORAL CONTRAST: Prescribed oral contrast ingested. RADIATION DOSE: 7.97 CTDIvol (mGy) MEDICAL HISTORY : Hypertension. SURGICAL HISTORY : Pacemaker. Duodenal ulcer repair. ENCOUNTER: Subsequent ACUITY: 1 week PAIN SCALE: Non-responsive LOCATION: abdomen/pelvis TECHNIQUE: Volumetric scanning of the abdomen and pelvis was performed. Using automated exposure control and ad justment of the mA and/or kV according to patient size, radiation dose was kept as low as reasonably achievable to obtain optimal diagnostic quality images. DICOM format image data is available electro nically for review and comparison. FINDINGS: LOWER LUNGS: There is small bilateral pleural effusions with consolidation in both posterior lower lobes left grea ter than right with air bronchograms. Heart size is moderately enlarged. There is a transvenous pacer in place. Patient is status post median sternotomy. LIVER: Homogeneous density without lesion. There is no dilation of the biliary tree. No calcified gallston es. SPLEEN: Normal size without lesion. PANCREAS: Within normal limits. KIDNEYS: Normal in size and shape. There is no mass, stone or hydronephrosis. ADRENAL GLANDS: Within normal limits. VASCULAR: There is no aortic aneurysm. BOWEL/MESENTERY: There are bilateral percutaneous catheters in place. The right catheter extends along the inferior ma rgin of the liver and the left catheter extends along the left anterior abdomen. There are multiple l oops of borderline dilated air-containing small bowel with multiple air-fluid levels. There is mild g aseous distention in portions of the ascending, transverse and descending colon with moderate amount of stool present. There is no free air. A nasogastric tube is seen coursing through the distal esopha kapil and into the stomach. The tip is in the region of distal stomach. There is limited oral opacifica tion of portions of the small bowel. ABDOMINAL WALL: Within normal limits. RETROPERITONEUM: There is no lymphadenopathy. BLADDER: A Donaldson catheter is in place in the bladder is decompressed. REPRODUCTIVE: Within normal limits. INGUINAL: There is no lymphadenopathy or hernia. MUSCULOSKELETAL: Within normal limits for patient age. CONCLUSION: 1. New bilateral pleural effusions and consolidation in both posterior lung bases left greater than r ight with air bronchograms. 2. Abnormal bowel gas pattern most consistent with an ileus. 3. Bilateral percutaneous drainage catheters in place. 4. Cardiomegaly. Patient is status post median sternotomy. Armen Rodriguez MD on September 09, 2017 at 17:39 Board Certified Radiologist. This report was verified electronically.
[2017-09-09] MEDS: FLUCONAZOLE 400 MG PREMIX BAG 200 ML IV SCH (17:48)
[2017-09-09] MEDS: ONDANSETRON HCL 4 MG/2 ML VIAL IVP PRN (20:29)
[2017-09-10] VITALS (16 sets, daily range): BP systolic 111–132; BP diastolic 70–86; PULSE 64–90; RESP 16–26; TEMP 98.5–99.8; O2SAT 98–100
[2017-09-10] MEDS: MORPHINE SULFATE 4 MG/ML INJ IV PUSH PRN ×2 (00:10→10:50)
[2017-09-10] MEDS: PIPERACIL-TAZO 3.375 GM PREMIX 50 ML IV SCH ×4 (02:00→21:33)
[2017-09-10] MEDS: PROPOFOL 1000 MG/100 ML IV PRN ×4 (03:53→16:39)
[2017-09-10] MEDS: HEPARIN-D5W 25,000 U/250 ML 250 ML IV PRN ×2 (03:55→16:51)
--- NOTE | 2017-09-10 04:09 | RADRPT ---
EXAM DATE/TIME: 09/10/2017 03:41 [facility] COMPARISON: CHEST SINGLE AP, September 08, 2017, 5:49. INDICATIONS : Respiratory failure. MEDICAL HISTORY : Myocardial infarction. Congestive heart failure. Hypertension. SURGICAL HISTORY : Pacemaker. Mitral valve replacement. ENCOUNTER: Subsequent ACUITY: 1 week PAIN SCORE: Non-responsive. LOCATION: Bilateral chest FINDINGS: A single view of the chest demonstrates the endotracheal tube, nasogastric tube, right subclavian vanesa tral line and pacemaker are all stable. Right-sided pleural effusion. Cardiac silhouette is widened.. Osseous structures are intact. CONCLUSION: Small right pleural effusion. Cardiac silhouette remains widened. Hola Walker MD on September 10, 2017 at 4:07 Board Certified Radiologist. This report was verified electronically.
--- NOTE | 2017-09-10 04:10 | RADRPT ---
EXAM DATE/TIME: 09/10/2017 03:46 [facility] COMPARISON: ABDOMEN KUB ONLY, September 09, 2017, 4:25. INDICATIONS : Ileus. MEDICAL HISTORY : Myocardial infarction. Congestive heart failure. Hypertension. SURGICAL HISTORY : Mitral valve replacement. Perforated duodenal ulcer repair. ENCOUNTER: Subsequent ACUITY: 1 week PAIN SCORE: Non-responsive. LOCATION: abdomen FINDINGS: Supine view of the abdomen was performed. The abdominal bowel gas pattern is normal. The surgical dr hattien in the right midabdomen, nasogastric tube and left-sided drainage catheter all in good position. There remains a significant amount of air throughout the colon. No abnormal masses, calcifications, or organomegaly is seen. The osseous structures are unremarkable. CONCLUSION: Stable appearance to the abdomen. Significant air remains throughout the colon Hola Walker MD on September 10, 2017 at 4:08 Board Certified Radiologist. This report was verified electronically.
[2017-09-10 04:25] LABS: AUTOMATED NEUTROPHIL # 10.2 TH/MM3 (1.8-7.7); BASOPHIL # 0.1 TH/MM3 (0-0.2); BASOPHIL % 0.5 % (0.0-2.0); EOSINOPHIL # 0.1 TH/MM3 (0-0.4); EOSINOPHIL % 0.7 % (0.0-4.0); HEMATOCRIT 22.7 % (39.0-51.0); HEMOGLOBIN 7.5 GM/DL (13.0-17.0); LYMPH % 9.1 % (9.0-44.0); LYMPHOCYTE # 1.1 TH/MM3 (1.0-4.8); MEAN CELL VOLUME 89.9 FL (80.0-100.0); MEAN CORPUSCULAR HEMOGLOBIN 29.8 PG (27.0-34.0); MEAN CORPUSCULAR HGB CONC 33.2 % (32.0-36.0); MEAN PLATELET VOLUME 7.7 FL (7.0-11.0); MONO % 6.1 % (0.0-8.0); MONOCYTE # 0.7 TH/MM3 (0-0.9); NEUT % 83.6 % (16.0-70.0); PLATELET COUNT 143 TH/MM3 (150-450); RED BLOOD COUNT 2.53 MIL/MM3 (4.50-5.90); RED CELL DISTRIBUTION WIDTH 18.6 % (11.6-17.2); WHITE BLOOD COUNT 12.2 TH/MM3 (4.0-11.0)
[2017-09-10 04:44] LABS: ALBUMIN 2.1 GM/DL (3.4-5.0); ALT (GPT) 27 U/L (12-78); AST (GOT) 23 U/L (15-37); BLOOD UREA NITROGEN 26 MG/DL (7-18); CALCIUM 8.4 MG/DL (8.5-10.1); CHLORIDE 109 MEQ/L (98-107); GLOMERULAR FILTRATION RATE 83 ML/MIN (>89); GLUCOSE,RANDOM 98 MG/DL (74-106); SODIUM (NA) 146 MEQ/L (136-145)
[2017-09-10 04:47] LABS: ALKALINE PHOSPHATASE 57 U/L (45-117); PHOSPHORUS 3.5 MG/DL (2.5-4.9); TOTAL BILIRUBIN ADULT 0.5 MG/DL (0.2-1.0); TOTAL PROTEIN 5.5 GM/DL (6.4-8.2)
[2017-09-10] MEDS: METOCLOPRAMIDE HCL 10 MG/2 ML VIAL IV PUSH SCH ×3 (05:19→21:36)
[2017-09-10] MEDS: ERYTHROMYCIN ETHYLSUCCINATE 200 MG/5 ML SUSP 100 ML BOTTLE PO SCH ×3 (05:20→21:37)
[2017-09-10] MEDS: FREE WATER G-TUBE SCH ×3 (05:20→12:13)
[2017-09-10] MEDS: ARTIFICIAL TEARS OPTH SOLN 15 ML BTL EACH EYE SCH ×3 (05:20→21:36)
[2017-09-10] MEDS: MORPHINE SULFATE 2 MG/ML SYRINGE IV PUSH PRN (05:20)
[2017-09-10] MEDS: SENNOSIDES SYRUP 8.8 MG/5 ML CUP PO SCH ×2 (08:36→21:36)
[2017-09-10] MEDS: POLYETHYLENE GLYCOL 17 GM PKG PO SCH ×2 (08:36→21:35)
[2017-09-10] MEDS: ARIPiprazole 5 MG TAB PO SCH ×2 (08:36→21:34)
[2017-09-10] MEDS: DULoxetine HCl DR 30 MG CAP PO SCH (08:36)
[2017-09-10] MEDS: PANTOPRAZOLE SODIUM 40 MG VIAL IV PUSH SCH ×2 (08:37→21:34)
[2017-09-10] MEDS: DOCUSATE SODIUM 100 MG/10 ML UDC PO SCH ×2 (08:37→21:34)
[2017-09-10] MEDS: LACTULOSE SYRUP 20 GM/30 ML CUP PO SCH ×2 (08:37→21:35)
[2017-09-10] MEDS: SODIUM CHLORIDE 0.9% FLUSH 10 ML FLUSH IV FLUSH SCH ×2 (08:38→21:34)
[2017-09-10] MEDS: FUROSEMIDE 20 MG/2 ML VIAL IV PUSH SCH (08:38)
[2017-09-10] MEDS: REMOVE OLD PATCH T-DERMAL SCH (08:39)
[2017-09-10] MEDS: NICOTINE 14 MG/24 HR PATCH T-DERMAL SCH (08:40)
[2017-09-10] MEDS: ICU - POTASSIUM CHLORIDE/AQUEOUS SOLN 40 MEQ/100 ML IVPB IV PRN ×2 (09:49→15:46)
--- NOTE | 2017-09-10 09:55 | HHI.GIFU ---
Subjective Remarks Drowsy but responds to verbal stimuli, anxiety Continues to be on mechanical ventilation NG tube clamped for meds now but will go back to low intermittent suction Temp 99.8 Father in room (Annette VazquezAlisa RODRÍGUEZ) Objective Vitals I&O Vital Signs Date Time Temp Pulse Resp B/P (MAP) Pulse Ox O2 Delivery O2 Flow Rate FiO2 09/10/17 09:01 100 40 09/10/17 09:01 40 09/10/17 06:00 86 09/10/17 05:10 100 40 09/10/17 04:00 84 09/10/17 04:00 40 09/10/17 04:00 99.8 84 18 132/86 (101) 100 09/10/17 02:00 80 09/10/17 00:00 98.5 90 19 131/85 (100) 100 Arterial Line 09/10/17 00:00 40 09/10/17 00:00 90 09/09/17 22:00 90 09/09/17 21:30 100 40 09/09/17 20:00 40 09/09/17 20:00 99.7 84 17 142/86 (104) 100 Arterial Line 09/09/17 20:00 84 09/09/17 18:00 86 09/09/17 16:00 92 09/09/17 16:00 100.0 92 20 130/90 (103) 98 09/09/17 16:00 40 09/09/17 14:00 92 09/09/17 13:56 20 09/09/17 12:00 30 09/09/17 12:00 101.0 96 17 137/86 (103) 100 09/09/17 12:00 96 09/09/17 11:55 95 30 09/09/17 10:00 90 I/O 09/09/17 09/09/17 09/09/17 09/10/17 09/10/17 09/10/17 07:00 15:00 23:00 07:00 15:00 23:00 Intake Total 600 ml 950 ml 550 ml 600 ml Output Total 620 ml 1575 ml 1170 ml Balance -20 ml 950 ml -1025 ml -570 ml IV Total 950 ml 550 ml 600 ml Tube Feeding 0 ml Other 600 ml Output Urine Total 550 ml 1300 ml 650 ml Gastric Drainage Total 50 ml 250 ml 500 ml Drainage Total 20 ml 25 ml 20 ml # Bowel Movements 1 3 0 Laboratory Laboratory Tests Test 09/09/17 14:05 09/09/17 21:20 09/10/17 04:05 Activated Partial Thromboplast Time 35.9 40.1 44.1 Potassium Level 3.0 3.2 White Blood Count 12.2 Red Blood Count 2.53 Hemoglobin 7.5 Hematocrit 22.7 Mean Corpuscular Volume 89.9 Mean Corpuscular Hemoglobin 29.8 Mean Corpuscular Hemoglobin Concent 33.2 Red Cell Distribution Width 18.6 Platelet Count 143 Mean Platelet Volume 7.7 Neutrophils (%) (Auto) 83.6 Lymphocytes (%) (Auto) 9.1 Monocytes (%) (Auto) 6.1 Eosinophils (%) (Auto) 0.7 Basophils (%) (Auto) 0.5 Neutrophils # (Auto) 10.2 Lymphocytes # (Auto) 1.1 Monocytes # (Auto) 0.7 Eosinophils # (Auto) 0.1 Basophils # (Auto) 0.1 CBC Comment DIFF FINAL Differential Comment Blood Urea Nitrogen 26 Creatinine 1.00 Random Glucose 98 Total Protein 5.5 Albumin 2.1 Calcium Level 8.4 Phosphorus Level 3.5 Magnesium Level 2.0 Alkaline Phosphatase 57 Aspartate Amino Transf (AST/SGOT) 23 Alanine Aminotransferase (ALT/SGPT) 27 Total Bilirubin 0.5 Sodium Level 146 Chloride Level 109 Carbon Dioxide Level 29.0 Anion Gap 8 Estimat Glomerular Filtration Rate 83 Total Creatine Kinase 65 Amylase Level 66 Lipase 405 Date/Time Source Procedure Growth Status 09/08/17 04:00 Blood Peripheral Aerobic Blood Culture - Preliminary NO GROWTH IN 1 DAY Resulted 09/08/17 04:00 Blood Peripheral Anaerobic Blood Culture - Preliminary NO GROWTH IN 1 DAY Resulted 09/09/17 19:00 Sputum Endotracheal Gram Stain - Final Resulted 09/09/17 19:00 Sputum Endotracheal Sputum Culture Pending Resulted 09/07/17 16:20 Urine Catheterized Urine Urine Culture - Final NO GROWTH IN 48 HOURS. Complete Imaging Last Impressions Chest X-Ray 09/10/17599 Signed Impressions: Service Date/Time: Sunday, September 10, 2017 03:41 - CONCLUSION: Small right pleural effusion. Cardiac silhouette remains widened. Hola Walker MD Abdomen X-Ray 09/10/17 06 Signed Impressions: Service Date/Time: Sunday, September 10, 2017 03:46 - CONCLUSION: Stable appearance to the abdomen. Significant air remains throughout the colon Hola Walker MD Abdomen/Pelvis CT 09/09/17 0000 Signed Impressions: Service Date/Time: Saturday, September 09, 2017 16:36 - CONCLUSION: 1. New bilateral pleural effusions and consolidation in both posterior lung bases left greater than right with air bronchograms. 2. Abnormal bowel gas pattern most consistent with an ileus. 3. Bilateral percutaneous drainage catheters in place. 4. Cardiomegaly. Patient is status post median sternotomy. Armen Rodriguez MD Chest CT 09/01/17 0000 Signed Impressions: Service Date/Time: August 07:15 - CONCLUSION: No acute CT findings of the chest Juan Rivera MD Physical Exam HEENT: Normocephalic; atraumatic intubated, mild sedation, NG tube to low intermittent suction, or clamped for meds CHEST: CTA on vent CARDIAC: regular rate. + murmur ABDOMEN: Minimal hypoactive, moderate gaseous distended, tympany RAYMOND drain RUQ , J tube, abdominal binder.primapore midline abd, d&i. NG to LIWS with dark green colored drainage EXTREMITIES: No clubbing, cyanosis, or edema. SKIN: Normal; no rash; no jaundice. DRIVE THRU ORDER TAKER: Mild anxiety, awakens to verbal stimuli it is getting some sedation (Annette Vazquez) Assessment and Plan Plan ASSESSMENT - coffee ground emesis, melanotic stool - UGIB using mobic for last 2 weeks. 2 weeks ago had mult episodes CGE, last few days melena - anemia - hgb 5.5 on admission, macrocytic. 2/2 above. never had EGD or colonoscopy before. he is not sure if he wants procedures right now - abd pain - c/o lower abd pain but tender diffusely on exam. could be ulcers vs gastritis. CT abd unremarkable aside from nonspecific peritoneal fluid. - chest pain - chest CT neg. hx HOCM, s/p heart valve replacement, recent septomyectomy 2017. Cody Roy [phone]. (09/03) --> S/P EGD yesterday --> Hiatal hernia. large amount of old blood and retained food in stomach, duodenal bulb ulcer blocking duodenal bul, unable to pass scope, abdomen increasingly distended. Pt taken for emergent exploratory laparotomy --> findings of perforated duodenal ulcer with massive contamination. J tube placement. RAYMOND drain placement. Per RN GS planning on starting the pt on TF tomorrow. H/H stable. NGT to LIWS with green colored drainage. No BM per RN. 09/08/17 reconsulted for colon ileus. Pt had KUB this am showed colon ileus, constipation, colon distended 8.6cm. increasing NGT output. TF held. on bowel regimen. EES, reglan, relistor today. will see if that works. 09/09/17. KUB showed persistent ileus but with some improvement. + moderate BM reported. going for CT. on EES, reglan, bowel regimen 09/10/17 abdominal x-ray stable appearance of the abdomen significant hair remains throughout the colon. With turning patient in bed increased flatus noted. Diarrhea same loose with some particles but no active bleeding noted. Nurse states they attempted rectal Donaldson but stool was a thicker consistency and was not passing through. Current hemoglobin 7.5, no obvious upper GI bleeding stools are dark semi-loose. Plan to check Hemoccult. Recent KUB showed constipation on 09/08/17. Partial ileus probable improvement gradual. Patient has history of congenital heart disease and previous mitral valve surgery per dad. Patient has been on long-term Coumadin, now being held PLAN - Check Hemoccult today -Transfuse as needed, monitor for any new acute bleeding - Reglan, EES continue - Monitor labs with special attention to hemoglobin - Continue to monitor abdomen intake and output and diarrhea stools. - supportive care Pt has been seen and examined by myself and Dr. Syed and myself and this note is on his behalf (Annette Vazquez) Physician Comments Patient seen and examined Agree with above Continue with current supportive care Monitor lab Would recommend advancing tube feeds gradually as he is abdominal examination is unremarkable at this point with a soft abdomen may be slight tenderness with some grimacing noted on deep palpation but otherwise appears to be soft (Pj Syed MD) Annette Vazquez Sep 10, 2017 09:55 Pj Syed MD Sep 10, 2017 17:50
--- NOTE | 2017-09-10 12:43 | HHI.PR ---
Subjective Subjective Notes Patient is ventilated and sedated. Objective Vitals/I&O Vital Signs Date Time Temp Pulse Resp B/P (MAP) Pulse Ox O2 Delivery O2 Flow Rate FiO2 09/10/17 12:00 82 09/10/17 12:00 99.0 26 128/81 (97) 100 09/10/17 12:00 40 09/06/17 09:20 Ventilator Labs Laboratory Tests Test 09/09/17 14:05 09/09/17 21:20 09/10/17 04:05 Activated Partial Thromboplast Time 35.9 40.1 44.1 Potassium Level 3.0 3.2 White Blood Count 12.2 Red Blood Count 2.53 Hemoglobin 7.5 Hematocrit 22.7 Mean Corpuscular Volume 89.9 Mean Corpuscular Hemoglobin 29.8 Mean Corpuscular Hemoglobin Concent 33.2 Red Cell Distribution Width 18.6 Platelet Count 143 Mean Platelet Volume 7.7 Neutrophils (%) (Auto) 83.6 Lymphocytes (%) (Auto) 9.1 Monocytes (%) (Auto) 6.1 Eosinophils (%) (Auto) 0.7 Basophils (%) (Auto) 0.5 Neutrophils # (Auto) 10.2 Lymphocytes # (Auto) 1.1 Monocytes # (Auto) 0.7 Eosinophils # (Auto) 0.1 Basophils # (Auto) 0.1 CBC Comment DIFF FINAL Differential Comment Blood Urea Nitrogen 26 Creatinine 1.00 Random Glucose 98 Total Protein 5.5 Albumin 2.1 Calcium Level 8.4 Phosphorus Level 3.5 Magnesium Level 2.0 Alkaline Phosphatase 57 Aspartate Amino Transf (AST/SGOT) 23 Alanine Aminotransferase (ALT/SGPT) 27 Total Bilirubin 0.5 Sodium Level 146 Chloride Level 109 Carbon Dioxide Level 29.0 Anion Gap 8 Estimat Glomerular Filtration Rate 83 Total Creatine Kinase 65 Amylase Level 66 Lipase 405 Date/Time Source Procedure Growth Status 09/08/17 04:00 Blood Peripheral Aerobic Blood Culture - Preliminary NO GROWTH IN 2 DAYS Resulted 09/08/17 04:00 Blood Peripheral Anaerobic Blood Culture - Preliminary NO GROWTH IN 2 DAYS Resulted 09/09/17 19:00 Sputum Endotracheal Gram Stain - Final Resulted 09/09/17 19:00 Sputum Endotracheal Sputum Culture Pending Resulted 09/07/17 16:20 Urine Catheterized Urine Urine Culture - Final NO GROWTH IN 48 HOURS. Complete Radiology Last Impressions Abdomen X-Ray 09/09/17 0600 Signed Impressions: Service Date/Time: Saturday, September 09, 2017 04:25 - CONCLUSION: Persistent ileus but slightly improved. Juan Trotter MD Abdomen/Pelvis CT 09/09/17 0000 Signed Impressions: Service Date/Time: Saturday, September 09, 2017 16:36 - CONCLUSION: 1. New bilateral pleural effusions and consolidation in both posterior lung bases left greater than right with air bronchograms. 2. Abnormal bowel gas pattern most consistent with an ileus. 3. Bilateral percutaneous drainage catheters in place. 4. Cardiomegaly. Patient is status post median sternotomy. Armen Rodriguez MD Chest X-Ray 09/08/17 0600 Signed Impressions: Service Date/Time: August 05:49 - CONCLUSION: 1. Stable exam. Support apparatus unchanged. Joel Garcia MD Chest CT 09/01/17 0000 Signed Impressions: Service Date/Time: August 07:15 - CONCLUSION: No acute CT findings of the chest Juan Rivera MD Last Impressions Chest X-Ray 09/04/17 06 Signed Impressions: Service Date/Time: Monday, September 04, 2017 03:33 - CONCLUSION: 1. No significant change. Armen Rodriguez MD Abdomen X-Ray 09/02/17 1654 Signed Impressions: Service Date/Time: Saturday, September 02, 2017 17:47 - CONCLUSION: 1. Probable free intraperitoneal air. Further evaluation with abdomen and pelvic CT recommended. Joel Garcia MD Abdomen/Pelvis CT 09/01/17 0559 Signed Impressions: Service Date/Time: August 07:15 - CONCLUSION: Nonspecific free peritoneal fluid. No acute focal abnormalities. Juan Rivera MD Chest CT 09/01/17 0000 Signed Impressions: Service Date/Time: August 07:15 - CONCLUSION: No acute CT findings of the chest Juan Rivera MD Cardiovascular: Regular Lungs: Clear, Other (Intubated) Abdomen: Other (Mildly distended abdomen. Midline incision is intact healing well without erythema or drainage. RAYMOND drain exiting right upper quadrant has yellow serous fluid within the drain bulb. Feeding jejunostomy exit site is uncomplicated. Patient has a rectal pouch which is draining stool. His extremities appear well perfused. He has sequential compression device on. He spontaneously moves his lower extremities.) A/P Problem List: (1) Status post exploratory laparotomy ICD Codes: Z98.890 - Other specified postprocedural states Status: Acute (2) Duodenal ulcer perforation ICD Codes: K26.5 - Chronic or unspecified duodenal ulcer with perforation Status: Chronic (3) Duodenal ulcer with perforation ICD Codes: K26.5 - Chronic or unspecified duodenal ulcer with perforation Status: Chronic (4) H/O hypertrophic cardiomyopathy ICD Codes: Z86.79 - Personal history of other diseases of the circulatory system Status: Chronic (5) Perforation of duodenal ulcer ICD Codes: K26.5 - Chronic or unspecified duodenal ulcer with perforation Status: Acute (6) Anemia ICD Codes: D64.9 - Anemia, unspecified Status: Acute (7) GI bleed ICD Codes: K92.2 - Gastrointestinal hemorrhage, unspecified Status: Acute (8) AICD (automatic cardioverter/defibrillator) present ICD Codes: Z95.810 - AICD (automatic cardioverter/defibrillator) present Status: Chronic (9) S/P MVR (mitral valve replacement) ICD Codes: Z95.4 - S/P MVR (mitral valve replacement) Status: Chronic Permanent Comment: Need prophyllaxis - Due to endocarditis Last Edited By: Ozzy Edwards on May 26, 2014 13:06 (10) H/O mitral valve replacement with mechanical valve ICD Codes: Z95.2 - Presence of prosthetic heart valve Status: Chronic (11) Malnutrition ICD Codes: E46 - Unspecified protein-calorie malnutrition Status: Chronic (12) Serum albumin decreased ICD Codes: E88.09 - Other disorders of plasma-protein metabolism, not elsewhere classified Status: Chronic (13) Chronic anticoagulation ICD Codes: Z79.01 - care home (current) use of anticoagulants Status: Chronic Assessment and Plan Postop exploratory lap repair perforated duodenal ulcer placement of feeding tube in jejunum. Patient has been intolerant to tube feeds. He had a CT scan last night which shows a distended air and stool filled colon. There is stool in his rectal vault. He appears to be now showing signs of moving his bowels. His stomach is nondistended. I recommended restarting tube feeds at a low rate. If there is any intolerance to tube feeds is likely related to his colon not his small bowel. If necessary could perform digital rectal exam and fecal manual removal if needed. Problem Qualifiers (1) Anemia: Qualified Codes: D62 - Acute posthemorrhagic anemia (2) GI bleed: Qualified Codes: K26.4 - Chronic or unspecified duodenal ulcer with hemorrhage (3) Malnutrition: Adria Nuno MD Sep 10, 2017 12:43
[2017-09-10] MEDS: MIDAZOLAM 100 MG/100 ML INJ 100 ML IV PRN (12:45)
--- NOTE | 2017-09-10 12:57 | HHI.CCPN ---
Subjective Remarks/Hospital Course 09/02: 41-year-old male who presented to [facility] on 09/01/2017 after having episodes of coffee-ground emesis. The patient has had some sternotomy pain and chronic back pain, and so he was told to take Mobic twice a day. He started getting nauseous. After this, he started having coffee ground emesis. He underwent endoscopy examination by Dr. Frazier when he became clinically unstable and his abdomen became rock hard. He was emergently transferred to operating room where he underwent Exploratory laparotomy, Jay patch of a 1 cm duodenal ulcer with duodenal ulcer repair, placement of drain at the duodenum, feeding jejunostomy tube placement and abdominal washout by Drs. Varma and Shirley. Postprocedure he was transferred to intensive care unit where he was weaned off the mechanical ventilation and extubated following CPAP trial, however his respiration became more labored, patient became hypoxemic and respiratory distress requiring reintubation and continue mechanical ventilation. 09/03: He remains intubated and sedated. Currently he is on norepinephrine for BP support at 8 mcg/minute. FiO2 down to 45%. Sedation currently achieved with midazolam, propofol and fentanyl infusions. Urine output is low, T-max 99.3. No family present at bedside. Morning chest x-ray reviewed, ET tube in place, right subclavian central line, pulmonary vascular congestion, possible retrocardiac infiltrate. 09/04: Patient did well over the night. Norepinephrine is off. Current heart rate in the 70s. Propofol was stopped, and fentanyl and midazolam infusions. Patient becomes easily agitated with stimulation moving all extremities but that does not follow any commands. T-max of 98.8. I/O 2241/1550. 09/05: Remains sedated, orally intubated on mechanical ventilation. On J-tube feeds at 20 cc per hour. FiO2 70% PEEP increased to +10 09/06: Remains sedated, orally intubated on mechanical ventilation. FiO2 50%, PEEP +10. Being diuresed. Tolerating J-tube feeds which are being advanced. 09/07: Low-grade temperatures. White blood cell count slowly increasing. Sputum 09/06 no growth today. Blood cultures 2 and urine ordered for today. Tube feeds Jevity 1.5 at goal 50 cc an hour. No problem. 09/08: T-max 100.8. Currently afebrile. No bowel movement overnight. 50 cc from RAYMOND tube. Increasing NG tube output greenish. Continues to tolerate tube feeding. PEEP down to 5. 09/09: T-max 100.2. Currently 98.2. One bowel movement documented. RAYMOND -50 cc. Still with copious output from OG. CT abdomen/pelvis ordered by general surgery. Subjective 09/10: T-max 101. Currently 99.0 Fahrenheit.. Still with 750 cc Makenzie's 24 hour OG output. Positive BM. Requiring propofol and midazolam drips for sedation Objective Vital Signs Date Time Temp Pulse Resp B/P (MAP) Pulse Ox O2 Delivery O2 Flow Rate FiO2 09/10/17 12:00 82 09/10/17 12:00 99.0 26 128/81 (97) 100 09/10/17 12:00 40 09/06/17 09:20 Ventilator Intake and Output 09/10/17 09/10/17 09/11/17 08:00 16:00 00:00 Intake Total 600 ml Output Total 1170 ml Balance -570 ml Result Diagram: 09/10/17 0405 09/10/17 0405 Other Results Microbiology Date/Time Source Procedure Growth Status 09/07/17 16:20 Urine Catheterized Urine Urine Culture - Final NO GROWTH IN 48 HOURS. Complete Imaging Last Impressions Abdomen X-Ray 09/09/17 0600 Signed Impressions: Service Date/Time: Saturday, September 09, 2017 04:25 - CONCLUSION: Persistent ileus but slightly improved. Juan Trotter MD Chest X-Ray 09/08/17 0600 Signed Impressions: Service Date/Time: August 05:49 - CONCLUSION: 1. Stable exam. Support apparatus unchanged. Joel Garcia MD Abdomen/Pelvis CT 09/01/17 0559 Signed Impressions: Service Date/Time: August 07:15 - CONCLUSION: Nonspecific free peritoneal fluid. No acute focal abnormalities. Juan Rivera MD Chest CT 09/01/17 0000 Signed Impressions: Service Date/Time: August 07:15 - CONCLUSION: No acute CT findings of the chest Juan Rivera MD Procedures None Objective Remarks General -41-year-old male currently orotracheally intubated HEENT - pupils are equal and reactive about 3 mm bilaterally, sclerae are anicteric, neck is supple, no rigidity, no JVD, no carotid bruit, orally intubated, + NGT in left nares CV -RRR. Metallic valve closure click Chest - scattered coarse breath sounds b/l, good air entry, no wheezes Abdomen - soft, non-distended, mildly tender, BS decreased, abdominal binder/ dressing over the surgical site -clean, J tube in place. RAYMOND tube right-sided 50 cc SS output overnight Skin -no skin breakdown noted Extremities - warm and well perfused, no edema, + peripheral pulses, no clubbing Neuro - intubated, sedated, moving all extremities Date of Insertion: Sep 02, 2017 Line: Central Venous Catheter Side: Right Location: Subclavian A/P Assessment and Plan Neuro/Psych: Depression Currently midazolam drip at 8 mg an hour, propofol drip at 50 micrograms per kilogram per minute for sedation while intubated. Start midazolam drip Goal of RASS -2 Daily sedation vacation Continue Aripiprazole 5 mg twice daily and duloxetine 30 mg daily/home medications for depression/anxiety As needed morphine sulfate 2-4 mg as needed for pain CV: HOCM History of mechanical mitral valve replacement ([employer] bileaflet, for previous endocarditis 2000) History of hypertrophic cardiomyopathy, status post septal myomectomy 2069 History of AICD 2013 Hypertension 2D echocardiogram revealed ejection fraction 60% percent. Hypertrophic cardio myopathy. Clinical mitral valve. Moderate MR. Followed by cardiology/Dr. Cabrales Holding atenolol 50 mg twice daily due to hypotension. Resume beta-vannessa when clinically indicated/more hemodynamically stable Resp: Acute hypoxic respiratory failure Tobacco ACV 16/500/5/30 Ventilator bundle Albuterol/ipratropium aerosols every 6 hours with albuterol aerosols every 2 hours as needed dyspnea Spontaneous breathing trials today with attempt extubation Nicotine patch 14 mg daily. When appropriate self-evaluation tobacco cessation booklet will be provided GI: Hypoalbuminemia Elevated AST Constipation Colonic ileus Jevity 1.5-50 cc an hour currently on hold. Restarted 10 cc today per surgery Free water 300 cc every 6 hours will be changed to half-normal saline with KCl at 84 cc an hour Pantoprazole for GI prophylaxis Docusate sodium 100 mg twice daily, senna 8.6 mg twice daily and polyethylene glycol 17 g twice daily and lactulose 30 cc twice daily. Bowel regimen. Methylnaltrexone 12 mg subcu 1 now. Check KUB -colonic ileus 09/02/29. Add metoclopramide 5 mg every 8 hours, E- Mycin 200 mg every 8 hours. Recheck KUB in a.m. Surgery ordered CT abdomen/pelvis 08/13 revealed copious amounts of stool. Air- filled colon. GI also following actively : Donaldson catheter has been placed for accurate I's and O's in a critically ill patient Endo: Sliding scale insulin if indicated to maintain euglycemia TSH 2.37 Renal: Acute kidney injury Creatinine currently downward trend. Likely secondary to ATN/sepsis. Slowly normalizing Recheck BMP in a.m. Free water 300 cc every 6 hours Heme: Acute blood loss anemia Leukocytosis Normocytic anemia Thrombocytopenia History of chronic warfarin use 2.5 mg daily Heparin drip currently at 1000 units an hour Transfuse 5 RBCs and 4 FFP during this hospitalization Hemoglobin currently 8.0 ID: Severe sepsis Currently on continuous dosed piperacillin/tazobactam and fluconazole per Dr. Mohan/infectious Pertinent cultures 09/08 -blood cultures 2 -no growth 09/07 -urine culture -no growth 09/06 -sputum -no growth 09/03 -blood cultures 2 -no growth FEN: Hypernatremia Hypokalemia Replace electrolytes as clinically indicated 50 mEq KCl 1 now. Recheck this afternoon MSK: Holding meloxicam 7.5 mg daily light of acute GI bleed PT evaluate and treat Access -Right subclavian CVL placed 09/02 at present -Left radial arterial line 09/02 to 09/08 Prophylaxis -GI -pantoprazole -DVT -SCD/heparin drip Level 3 follow-up Miles Martinez MD Sep 10, 2017 12:56
[2017-09-10] MEDS ORDERED: ALBUMIN 25% INJ 50 ML IV ONE (13:00)
[2017-09-10] MEDS: 1/2 NS + KCL 20 MEQ INJ 1,000 ML IV SCH (13:06)
--- NOTE | 2017-09-10 16:19 | HHI.IDPN ---
Subjective Subjective Remarks + liquid stool Aafebrile today , T max 101 in the last 24 hrs On vent tolerated 4 hrs of CPAP Antibiotics fluconazole zosyn Allergies: Coded Allergies: haloperidol (Unverified Allergy, Severe, DYSTONIC REACTION, 09/01/17) lorazepam (Unverified Allergy, Severe, SEVERE AGITATION, 09/01/17) promethazine (Unverified Allergy, Severe, SEVERE AGITATION, 09/01/17) zolpidem (Unverified Allergy, Severe, severe agitation, 09/01/17) Objective . Vital Signs Date Time Temp Pulse Resp B/P (MAP) Pulse Ox O2 Delivery O2 Flow Rate FiO2 09/10/17 16:00 40 09/10/17 16:00 99.2 80 16 111/70 (84) 100 09/10/17 16:00 80 09/10/17 14:02 98 40 09/10/17 14:00 80 09/10/17 12:00 82 09/10/17 12:00 99.0 79 26 128/81 (97) 100 09/10/17 12:00 40 09/10/17 10:55 24 09/10/17 10:00 88 09/10/17 09:01 100 40 09/10/17 09:01 40 09/10/17 08:00 40 09/10/17 08:00 99.4 84 16 132/84 (100) 99 09/10/17 08:00 84 09/10/17 06:00 86 09/10/17 05:10 100 40 09/10/17 04:00 84 09/10/17 04:00 40 09/10/17 04:00 99.8 84 18 132/86 (101) 100 09/10/17 02:00 80 09/10/17 00:00 98.5 90 19 131/85 (100) 100 Arterial Line 09/10/17 00:00 40 09/10/17 00:00 90 09/09/17 22:00 90 09/09/17 21:30 100 40 09/09/17 20:00 40 09/09/17 20:00 99.7 84 17 142/86 (104) 100 Arterial Line 09/09/17 20:00 84 09/09/17 18:00 86 09/10/17 09/10/17 09/11/17 15:00 23:00 07:00 Intake Total 300 ml Balance 300 ml IV Total 300 ml . Laboratory Tests Test 09/09/17 04:13 09/10/17 04:05 White Blood Count 14.6 TH/MM3 12.2 TH/MM3 Red Blood Count 2.59 MIL/MM3 2.53 MIL/MM3 Hemoglobin 7.7 GM/DL 7.5 GM/DL Hematocrit 23.3 % 22.7 % Mean Corpuscular Volume 90.1 FL 89.9 FL Mean Corpuscular Hemoglobin 29.6 PG 29.8 PG Mean Corpuscular Hemoglobin Concent 32.9 % 33.2 % Red Cell Distribution Width 18.7 % 18.6 % Platelet Count 117 TH/MM3 143 TH/MM3 Mean Platelet Volume 7.7 FL 7.7 FL Neutrophils (%) (Auto) 86.0 % 83.6 % Lymphocytes (%) (Auto) 7.1 % 9.1 % Monocytes (%) (Auto) 5.8 % 6.1 % Eosinophils (%) (Auto) 0.7 % 0.7 % Basophils (%) (Auto) 0.4 % 0.5 % Neutrophils # (Auto) 12.6 TH/MM3 10.2 TH/MM3 Lymphocytes # (Auto) 1.0 TH/MM3 1.1 TH/MM3 Monocytes # (Auto) 0.8 TH/MM3 0.7 TH/MM3 Eosinophils # (Auto) 0.1 TH/MM3 0.1 TH/MM3 Basophils # (Auto) 0.1 TH/MM3 0.1 TH/MM3 CBC Comment DIFF FINAL DIFF FINAL Differential Comment Laboratory Tests Test 09/09/17 04:13 09/09/17 14:05 09/10/17 04:05 09/10/17 14:55 Blood Urea Nitrogen 31 MG/DL 26 MG/DL Creatinine 1.15 MG/DL 1.00 MG/DL Random Glucose 90 MG/DL 98 MG/DL Calcium Level 8.2 MG/DL 8.4 MG/DL Phosphorus Level 4.1 MG/DL 3.5 MG/DL Magnesium Level 1.7 MG/DL 2.0 MG/DL Sodium Level 148 MEQ/L 146 MEQ/L Potassium Level 3.4 MEQ/L 3.0 MEQ/L 3.2 MEQ/L 3.1 MEQ/L Chloride Level 111 MEQ/L 109 MEQ/L Carbon Dioxide Level 28.2 MEQ/L 29.0 MEQ/L Anion Gap 9 MEQ/L 8 MEQ/L Estimat Glomerular Filtration Rate 71 ML/MIN 83 ML/MIN Total Protein 5.5 GM/DL Albumin 2.1 GM/DL Alkaline Phosphatase 57 U/L Aspartate Amino Transf (AST/SGOT) 23 U/L Alanine Aminotransferase (ALT/SGPT) 27 U/L Total Bilirubin 0.5 MG/DL Total Creatine Kinase 65 U/L Amylase Level 66 U/L Lipase 405 U/L Microbiology Date/Time Source Procedure Growth Status 09/08/17 04:00 Blood Peripheral Aerobic Blood Culture - Preliminary NO GROWTH IN 2 DAYS Resulted 09/08/17 04:00 Blood Peripheral Anaerobic Blood Culture - Preliminary NO GROWTH IN 2 DAYS Resulted 09/08/17 03:50 Blood Peripheral Aerobic Blood Culture - Preliminary NO GROWTH IN 2 DAYS Resulted 09/08/17 03:50 Blood Peripheral Anaerobic Blood Culture - Preliminary NO GROWTH IN 2 DAYS Resulted 09/09/17 19:00 Sputum Endotracheal Gram Stain - Final Resulted 09/09/17 19:00 Sputum Endotracheal Sputum Culture - Preliminary NO GROWTH IN 24 HOURS. Resulted 09/07/17 16:20 Urine Catheterized Urine Urine Culture - Final NO GROWTH IN 48 HOURS. Complete Imaging Last Impressions Chest X-Ray 09/10/17 0600 Signed Impressions: Service Date/Time: Sunday, September 10, 2017 03:41 - CONCLUSION: Small right pleural effusion. Cardiac silhouette remains widened. Hola Walker MD Abdomen X-Ray 09/10/17 0600 Signed Impressions: Service Date/Time: Sunday, September 10, 2017 03:46 - CONCLUSION: Stable appearance to the abdomen. Significant air remains throughout the colon Hola Walker MD Abdomen/Pelvis CT 09/09/17 0000 Signed Impressions: Service Date/Time: Saturday, September 09, 2017 16:36 - CONCLUSION: 1. New bilateral pleural effusions and consolidation in both posterior lung bases left greater than right with air bronchograms. 2. Abnormal bowel gas pattern most consistent with an ileus. 3. Bilateral percutaneous drainage catheters in place. 4. Cardiomegaly. Patient is status post median sternotomy. Armen Rodriguez MD Chest CT 09/01/17 0000 Signed Impressions: Service Date/Time: August 07:15 - CONCLUSION: No acute CT findings of the chest Juan Rivera MD Physical Exam CONSTITUTIONAL/GENERAL: This is an adequately nourished patient, in no apparent distress. Sedated intubated, on vent TUBES/LINES/DRAINS: SKIN: No jaundice, rashes, or lesions. Skin temperature appropriate. Not diaphoretic. EYES: Pupils equal and round and reactive. Extraocular motions intact. No scleral icterus. No injection or drainage. Fundi not examined. NECK: Trachea midline. Supple, nontender. No palpable thyroid enlargement or nodularity. CARDIOVASCULAR: Regular rate and rhythm with 2-3/6 systolic murmur, no gallops , or rubs. Mechanical saini sounds No JVD. Peripheral pulses symmetric. RESPIRATORY/CHEST: Symmetric, unlabored respirations. Clear to auscultation. Breath sounds equal bilaterally. No wheezes, rales, or rhonchi. GASTROINTESTINAL: Abdomen soft, non-tender, nondistended. No hepato-splenomegaly , or palpable masses. No guarding. BS hypoactive GENITOURINARY: Without palpable bladder distension. Donaldson catheter in place with yellow urine MUSCULOSKELETAL: Extremities without clubbing, cyanosis, + 1edema. No joint tenderness or effusion noted. No calf tenderness. NEUROLOGICAL:Sedated, PSYCHIATRIC: unable to assess Assessment & Plan Remarks Perforated duodenal ulcer with massive contamination. Sepsis (bandemia, hemodynamic instability acute VDRF and ARF) Sp prosthetic mech valve Remote h/o endocarditis acute VDRF worsening leukocytosis, Ileus with colon distended up to 8.6 cm in diameter. UTI? - improved cont zosyn, fluconazole chk stool for c.diff dw Dr Martinez, RN Melanie Mohan MD Sep 10, 2017 16:19
[2017-09-10] MEDS: FLUCONAZOLE 400 MG PREMIX BAG 200 ML IV SCH (18:08)
[2017-09-11] VITALS (18 sets, daily range): BP systolic 102–118; BP diastolic 60–78; PULSE 80–95; RESP 16–28; TEMP 98.7–99.8; O2SAT 96–100
[2017-09-11] MEDS: PROPOFOL 1000 MG/100 ML IV PRN ×4 (01:44→15:22)
[2017-09-11] MEDS: MIDAZOLAM 100 MG/100 ML INJ 100 ML IV PRN ×2 (01:44→15:23)
[2017-09-11 04:17] LABS: AUTOMATED NEUTROPHIL # 8.7 TH/MM3 (1.8-7.7); BASOPHIL # 0.1 TH/MM3 (0-0.2); EOSINOPHIL # 0.3 TH/MM3 (0-0.4); HEMATOCRIT 21.7 % (39.0-51.0); HEMOGLOBIN 7.2 GM/DL (13.0-17.0); LYMPH % 10.9 % (9.0-44.0); LYMPHOCYTE # 1.2 TH/MM3 (1.0-4.8); MEAN CELL VOLUME 89.7 FL (80.0-100.0); MEAN CORPUSCULAR HEMOGLOBIN 29.6 PG (27.0-34.0); MEAN CORPUSCULAR HGB CONC 32.9 % (32.0-36.0); MEAN PLATELET VOLUME 7.9 FL (7.0-11.0); MONO % 5.8 % (0.0-8.0); MONOCYTE # 0.6 TH/MM3 (0-0.9); NEUT % 79.3 % (16.0-70.0); PLATELET COUNT 188 TH/MM3 (150-450); RED BLOOD COUNT 2.42 MIL/MM3 (4.50-5.90)
[2017-09-11] MEDS: PIPERACIL-TAZO 3.375 GM PREMIX 50 ML IV SCH ×4 (04:30→21:19)
[2017-09-11] MEDS: 1/2 NS + KCL 20 MEQ INJ 1,000 ML IV SCH ×2 (04:30→12:16)
[2017-09-11] MEDS: METOCLOPRAMIDE HCL 10 MG/2 ML VIAL IV PUSH SCH ×3 (04:31→21:22)
[2017-09-11] MEDS: ARTIFICIAL TEARS OPTH SOLN 15 ML BTL EACH EYE SCH ×3 (04:32→21:21)
[2017-09-11 04:44] LABS: BICARBONATE 28.3 MEQ/L (21.0-32.0); CALCIUM 7.9 MG/DL (8.5-10.1); CREATININE 0.83 MG/DL (0.60-1.30); MAGNESIUM 1.7 MG/DL (1.5-2.5); PHOSPHORUS 3.1 MG/DL (2.5-4.9)
[2017-09-11] MEDS: ERYTHROMYCIN ETHYLSUCCINATE 200 MG/5 ML SUSP 100 ML BOTTLE PO SCH ×3 (05:27→21:21)
[2017-09-11] MEDS: HEPARIN-D5W 25,000 U/250 ML 250 ML IV PRN ×2 (05:35→18:51)
--- NOTE | 2017-09-11 06:08 | RADRPT ---
EXAM DATE/TIME: 09/11/2017 04:51 [facility] COMPARISON: CHEST SINGLE AP, September 10, 2017, 3:41. INDICATIONS : Respiratory failure. MEDICAL HISTORY : Myocardial infarction. Congestive heart failure. Hypertension. SURGICAL HISTORY : Pacemaker. Mitral valve replacement. ENCOUNTER: Subsequent ACUITY: 1 week PAIN SCORE: Non-responsive. LOCATION: Bilateral chest FINDINGS: A single view of the chest demonstrates endotracheal tube in good position. NG enters stomach. Right central line at cavoatrial junction. Cardiomegaly. Postop median sternotomy and mitral valve replacem ent. Bilateral mostly basilar airspace disease and small pleural effusions. CONCLUSION: 1. Cardiomegaly. Mild edema pattern stable to slightly improved from September 10. No new infiltrate. No pneumothorax. Support apparatus unchanged. Joel Garcia MD on September 11, 2017 at 6:05 Board Certified Radiologist. This report was verified electronically.
--- NOTE | 2017-09-11 06:13 | RADRPT ---
EXAM DATE/TIME: 09/11/2017 04:54 [facility] COMPARISON: ABDOMEN KUB ONLY, September 10, 2017, 3:46. INDICATIONS : Ileus. MEDICAL HISTORY : Myocardial infarction. Congestive heart failure. Hypertension. SURGICAL HISTORY : Pacemaker. Mitral valve replacement. ENCOUNTER: Subsequent ACUITY: 1 week PAIN SCORE: Non-responsive. LOCATION: Abdomen. FINDINGS: Supine view of the abdomen was performed. There is mild gaseous distention of the colon. Right and le ft drains unchanged. NG tube overlies distal stomach. Previous laparotomy. No free air. Basilar airsp sandi disease. CONCLUSION: 1. Mild gaseous distention of the colon. Support apparatus unchanged. Joel Garcia MD on September 11, 2017 at 6:09 Board Certified Radiologist. This report was verified electronically.
[2017-09-11] MEDS: POLYETHYLENE GLYCOL 17 GM PKG PO SCH ×2 (09:00→21:21)
[2017-09-11] MEDS: SENNOSIDES SYRUP 8.8 MG/5 ML CUP PO SCH ×2 (09:00→21:21)
[2017-09-11] MEDS: DULoxetine HCl DR 30 MG CAP PO SCH (09:00)
[2017-09-11] MEDS: LACTULOSE SYRUP 20 GM/30 ML CUP PO SCH ×2 (09:00→21:20)
[2017-09-11] MEDS: REMOVE OLD PATCH T-DERMAL SCH (09:51)
[2017-09-11] MEDS: NICOTINE 14 MG/24 HR PATCH T-DERMAL SCH (09:51)
[2017-09-11] MEDS: ARIPiprazole 5 MG TAB PO SCH ×2 (09:52→21:20)
[2017-09-11] MEDS: PANTOPRAZOLE SODIUM 40 MG VIAL IV PUSH SCH ×2 (09:52→21:19)
[2017-09-11] MEDS: DOCUSATE SODIUM 100 MG/10 ML UDC PO SCH ×2 (09:52→21:20)
[2017-09-11] MEDS: SODIUM CHLORIDE 0.9% FLUSH 10 ML FLUSH IV FLUSH SCH ×2 (10:01→21:19)
[2017-09-11] MEDS: FUROSEMIDE 20 MG/2 ML VIAL IV PUSH SCH (10:02)
[2017-09-11] MEDS ORDERED: POTASSIUM CHLOR 40 MEQ PREMIX 100 ML IV ONE (10:15)
--- NOTE | 2017-09-11 10:35 | HHI.CCPN ---
Subjective Remarks/Hospital Course 09/02: 41-year-old male who presented to [facility] on 09/01/2017 after having episodes of coffee-ground emesis. The patient has had some sternotomy pain and chronic back pain, and so he was told to take Mobic twice a day. He started getting nauseous. After this, he started having coffee ground emesis. He underwent endoscopy examination by Dr. Frazier when he became clinically unstable and his abdomen became rock hard. He was emergently transferred to operating room where he underwent Exploratory laparotomy, Jay patch of a 1 cm duodenal ulcer with duodenal ulcer repair, placement of drain at the duodenum, feeding jejunostomy tube placement and abdominal washout by Drs. Varma and Shirley. Postprocedure he was transferred to intensive care unit where he was weaned off the mechanical ventilation and extubated following CPAP trial, however his respiration became more labored, patient became hypoxemic and respiratory distress requiring reintubation and continue mechanical ventilation. 09/03: He remains intubated and sedated. Currently he is on norepinephrine for BP support at 8 mcg/minute. FiO2 down to 45%. Sedation currently achieved with midazolam, propofol and fentanyl infusions. Urine output is low, T-max 99.3. No family present at bedside. Morning chest x-ray reviewed, ET tube in place, right subclavian central line, pulmonary vascular congestion, possible retrocardiac infiltrate. 09/04: Patient did well over the night. Norepinephrine is off. Current heart rate in the 70s. Propofol was stopped, and fentanyl and midazolam infusions. Patient becomes easily agitated with stimulation moving all extremities but that does not follow any commands. T-max of 98.8. I/O 2241/1550. 09/05: Remains sedated, orally intubated on mechanical ventilation. On J-tube feeds at 20 cc per hour. FiO2 70% PEEP increased to +10 09/06: Remains sedated, orally intubated on mechanical ventilation. FiO2 50%, PEEP +10. Being diuresed. Tolerating J-tube feeds which are being advanced. 09/07: Low-grade temperatures. White blood cell count slowly increasing. Sputum 09/06 no growth today. Blood cultures 2 and urine ordered for today. Tube feeds Jevity 1.5 at goal 50 cc an hour. No problem. 09/08: T-max 100.8. Currently afebrile. No bowel movement overnight. 50 cc from RAYMOND tube. Increasing NG tube output greenish. Continues to tolerate tube feeding. PEEP down to 5. 09/09: T-max 100.2. Currently 98.2. One bowel movement documented. RAYMOND -50 cc. Still with copious output from OG. CT abdomen/pelvis ordered by general surgery. 09/10: T-max 101. Currently 99.0 Fahrenheit.. Still with 750 cc Makenzie's 24 hour OG output. Positive BM. Requiring propofol and midazolam drips for sedation Subjective 09/11: T-max 99.2. Currently afebrile. 850 cc bilious gastric output. 550 cc stool. 25 cc from RAYMOND. Remains on midazolam at 10 mg an hour and propofol at 30 mg/kg/min for sedation. Limited opioid use secondary to ileus. Abdomen appears soft. Improved chest x-ray and abdominal x-ray this a.m. Objective Vital Signs Date Time Temp Pulse Resp B/P (MAP) Pulse Ox O2 Delivery O2 Flow Rate FiO2 09/11/17 09:35 40 09/11/17 09:35 96 09/11/17 06:00 80 09/11/17 04:00 98.8 16 109/66 (80) Intake and Output 09/11/17 09/11/17 09/12/17 08:00 16:00 00:00 Intake Total 620 ml Output Total 960 ml Balance -340 ml Result Diagram: 09/11/17 0410 09/11/17 0410 Other Results Microbiology Date/Time Source Procedure Growth Status 09/08/17 04:00 Blood Peripheral Aerobic Blood Culture - Preliminary NO GROWTH IN 2 DAYS Resulted 09/08/17 04:00 Blood Peripheral Anaerobic Blood Culture - Preliminary NO GROWTH IN 2 DAYS Resulted 09/10/17 17:50 Stool Stool Stool Occult Blood (TARAN) - Final HEMOCCULT POSITIVE Complete 09/09/17 19:00 Sputum Endotracheal Gram Stain - Final Resulted 09/09/17 19:00 Sputum Endotracheal Sputum Culture - Preliminary NO GROWTH IN 24 HOURS. Resulted 09/07/17 16:20 Urine Catheterized Urine Urine Culture - Final NO GROWTH IN 48 HOURS. Complete Microbiology Date/Time Source Procedure Growth Status 09/10/17 17:50 Stool Stool Stool Occult Blood (TARAN) - Final HEMOCCULT POSITIVE Complete Imaging Last Impressions Chest X-Ray 4/1/18 0600 Signed Impressions: Service Date/Time: Monday, September 11, 2017 04:51 - CONCLUSION: 1. Cardiomegaly. Mild edema pattern stable to slightly improved from September 10. No new infiltrate. No pneumothorax. Support apparatus unchanged. Joel Garcia MD Abdomen X-Ray 09/11/17599 Signed Impressions: Service Date/Time: Monday, September 11, 2017 04:54 - CONCLUSION: 1. Mild gaseous distention of the colon. Support apparatus unchanged. Joel Garcia MD Abdomen/Pelvis CT 09/09/17 0000 Signed Impressions: Service Date/Time: Saturday, September 09, 2017 16:36 - CONCLUSION: 1. New bilateral pleural effusions and consolidation in both posterior lung bases left greater than right with air bronchograms. 2. Abnormal bowel gas pattern most consistent with an ileus. 3. Bilateral percutaneous drainage catheters in place. 4. Cardiomegaly. Patient is status post median sternotomy. Armen Rodriguez MD Chest CT 09/01/17 0000 Signed Impressions: Service Date/Time: August 07:15 - CONCLUSION: No acute CT findings of the chest Juan Rivera MD Procedures None Objective Remarks General -41-year-old male currently orotracheally intubated HEENT - pupils are equal and reactive about 3 mm bilaterally, sclerae are anicteric, neck is supple, no rigidity, no JVD, no carotid bruit, orally intubated, + NGT in left nares CV -RRR. Metallic valve closure click Chest - scattered coarse breath sounds b/l, good air entry, no wheezes Abdomen - soft, non-distended, mildly tender, BS decreased, abdominal binder/ dressing over the surgical site -clean, J tube in place. RAYMOND tube right-sided 25 cc SS output overnight Skin -no skin breakdown noted Extremities - warm and well perfused, no edema, + peripheral pulses, no clubbing Neuro - intubated, sedated, moving all extremities Urinary Catheter: Yes Assessment to: Continue Donaldson insert reason: Prolonged Immobilization Vascular Central Line Catheter: Yes Assessment to: Continue Date of Insertion: Sep 02, 2017 Line: Central Venous Catheter Side: Right Location: Subclavian A/P Assessment and Plan Neuro/Psych: Depression Currently midazolam drip at 10 mg an hour, propofol drip at 30 micrograms per kilogram per minute for sedation while intubated. Goal of RASS -2 Daily sedation vacation Continue Aripiprazole 5 mg twice daily and duloxetine 30 mg daily/home medications for depression/anxiety As needed morphine sulfate 2-4 mg IV for pain CV: HOCM History of mechanical mitral valve replacement ([employer] bileaflet, for previous endocarditis 2000) History of hypertrophic cardiomyopathy, status post septal myomectomy 2069 History of AICD 2013 Hypertension 2D echocardiogram revealed ejection fraction 60% percent. Hypertrophic cardio myopathy. Clinical mitral valve. Moderate MR. Followed by cardiology/Dr. Cabrales Holding atenolol 50 mg twice daily due to hypotension. Resume beta-vannessa when clinically indicated/more hemodynamically stable Resp: Acute hypoxic respiratory failure Tobacco ACV 16//11/09 PSV trial daily Ventilator bundle Albuterol/ipratropium aerosols every 6 hours with albuterol aerosols every 2 hours as needed dyspnea Spontaneous breathing trials today with attempt extubation Nicotine patch 14 mg daily. When appropriate self-evaluation tobacco cessation booklet will be provided GI: Hypoalbuminemia Elevated AST Constipation Colonic ileus Jevity 1.5-50 cc an hour currently on hold. Restarted 20 cc 09/10 per surgery half-normal saline with KCl at 84 cc an hour Pantoprazole for GI prophylaxis Docusate sodium 100 mg twice daily, senna 8.6 mg twice daily and polyethylene glycol 17 g twice daily and lactulose 30 cc twice daily. Bowel regimen. Methylnaltrexone 12 mg subcu 1 now. Check KUB -colonic ileus 09/02/29. Add metoclopramide 5 mg every 8 hours, E- Mycin 200 mg every 8 hours. Recheck KUB in a.m. 09/[address] abdomen/pelvis 08/13 revealed copious amounts of stool. Air- filled colon. GI also following actively : Donaldson catheter has been placed for accurate I's and O's in a critically ill patient Endo: Sliding scale insulin if indicated to maintain euglycemia TSH 2.37 Renal: Acute kidney injury Creatinine currently downward trend. Likely secondary to ATN/sepsis. Slowly normalizing Recheck BMP in a.m. Heme: Acute blood loss anemia Normocytic anemia History of chronic warfarin use 2.5 mg daily Heme positive stools Heparin drip currently at 1700 units an hour Transfuse 5 RBCs and 4 FFP during this hospitalization Hemoglobin currently 7.2 Transfuse 1 unit PRBCs today. 09/11 ID: Severe sepsis Currently on continuous dosed piperacillin/tazobactam and fluconazole per Dr. Mohan/infectious Pertinent cultures 09/08 -blood cultures 2 -no growth 09/07 -urine culture -no growth 09/06 -sputum -no growth 09/03 -blood cultures 2 -no growth C. difficile -09/10 FEN: Hypokalemia Replace electrolytes as clinically indicated 30 mEq KCl 1 now. Recheck this afternoon 2 magnesium sulfate IV 1 MSK: Holding meloxicam 7.5 mg daily light of acute GI bleed PT evaluate and treat Access -Right subclavian CVL placed 09/02 at present -Left radial arterial line 09/02 to 09/08 Prophylaxis -GI -pantoprazole -DVT -SCD/heparin drip Level 3 follow-up Miles Martinez MD Sep 11, 2017 10:35
[2017-09-11] MEDS: MAGNESIUM SULFATE 1 GM PREMIX 100 ML IV SCH ×2 (11:15→12:16)
--- NOTE | 2017-09-11 12:43 | HHI.GIFU ---
Subjective Remarks Pt intubated on vent. reddish tinged NGT output. tolerating TF 20ml/hr. mult BM documented. (Lashell Velazquez) Objective Vitals I&O Vital Signs Date Time Temp Pulse Resp B/P (MAP) Pulse Ox O2 Delivery O2 Flow Rate FiO2 09/11/17 11:55 97 40 09/11/17 09:35 40 09/11/17 09:35 96 40 09/11/17 06:00 80 09/11/17 04:13 100 40 09/11/17 04:00 98.8 82 16 109/66 (80) 100 09/11/17 04:00 40 09/11/17 04:00 84 09/11/17 02:00 40 09/11/17 02:00 87 09/11/17 00:54 99 40 09/11/17 00:00 40 09/11/17 00:00 80 09/11/17 00:00 98.7 83 16 102/60 (74) 99 09/10/17 22:00 71 09/10/17 20:52 100 40 09/10/17 20:00 40 09/10/17 20:00 64 09/10/17 20:00 99.2 64 16 123/73 (90) 100 09/10/17 18:00 79 09/10/17 16:00 40 09/10/17 16:00 99.2 80 16 111/70 (84) 100 09/10/17 16:00 80 09/10/17 14:02 98 40 09/10/17 14:00 80 I/O 09/10/17 09/10/17 09/10/17 09/11/17 09/11/17 09/11/17 07:00 15:00 23:00 07:00 15:00 23:00 Intake Total 600 ml 300 ml 692 ml 620 ml Output Total 1170 ml 2890 ml 960 ml Balance -570 ml 300 ml -2198 ml -340 ml Intake Oral 0 ml IV Total 600 ml 300 ml 350 ml Tube Feeding 42 ml 220 ml Other 300 ml 400 ml Output Urine Total 650 ml 1875 ml 550 ml Stool Total 550 ml Gastric Drainage Total 500 ml 450 ml 400 ml Drainage Total 20 ml 15 ml 10 ml # Bowel Movements 0 2 Laboratory Laboratory Tests Test 09/10/17 14:55 09/10/17 17:50 09/11/17 04:10 Potassium Level 3.1 3.2 Stool C. difficile Toxin (PCR) NEGATIVE Stl C. difficile Toxin Epiderm 027 PRESUMPTIVE NEGATIVE White Blood Count 11.0 Red Blood Count 2.42 Hemoglobin 7.2 Hematocrit 21.7 Mean Corpuscular Volume 89.7 Mean Corpuscular Hemoglobin 29.6 Mean Corpuscular Hemoglobin Concent 32.9 Red Cell Distribution Width 19.0 Platelet Count 188 Mean Platelet Volume 7.9 Neutrophils (%) (Auto) 79.3 Lymphocytes (%) (Auto) 10.9 Monocytes (%) (Auto) 5.8 Eosinophils (%) (Auto) 3.0 Basophils (%) (Auto) 1.0 Neutrophils # (Auto) 8.7 Lymphocytes # (Auto) 1.2 Monocytes # (Auto) 0.6 Eosinophils # (Auto) 0.3 Basophils # (Auto) 0.1 CBC Comment DIFF FINAL Differential Comment Activated Partial Thromboplast Time 47.4 Blood Urea Nitrogen 20 Creatinine 0.83 Random Glucose 99 Calcium Level 7.9 Phosphorus Level 3.1 Magnesium Level 1.7 Sodium Level 145 Chloride Level 110 Carbon Dioxide Level 28.3 Anion Gap 7 Estimat Glomerular Filtration Rate 103 Date/Time Source Procedure Growth Status 09/08/17 04:00 Blood Peripheral Aerobic Blood Culture - Preliminary NO GROWTH IN 3 DAYS Resulted 09/08/17 04:00 Blood Peripheral Anaerobic Blood Culture - Preliminary NO GROWTH IN 3 DAYS Resulted 09/10/17 17:50 Stool Stool Stool Occult Blood (TARAN) - Final HEMOCCULT POSITIVE Complete 09/09/17 19:00 Sputum Endotracheal Gram Stain - Final Complete 09/09/17 19:00 Sputum Endotracheal Sputum Culture - Final RARE GROWTH NORMAL RESPIRATORY MAXIM Complete 09/07/17 16:20 Urine Catheterized Urine Urine Culture - Final NO GROWTH IN 48 HOURS. Complete Imaging Last Impressions Chest X-Ray 09/11/17 0600 Signed Impressions: Service Date/Time: Monday, September 11, 2017 04:51 - CONCLUSION: 1. Cardiomegaly. Mild edema pattern stable to slightly improved from September 10. No new infiltrate. No pneumothorax. Support apparatus unchanged. Joel Garcia MD Abdomen X-Ray 09/11/17 0600 Signed Impressions: Service Date/Time: Monday, September 11, 2017 04:54 - CONCLUSION: 1. Mild gaseous distention of the colon. Support apparatus unchanged. Joel Garcia MD Abdomen/Pelvis CT 09/09/17 0000 Signed Impressions: Service Date/Time: Saturday, September 09, 2017 16:36 - CONCLUSION: 1. New bilateral pleural effusions and consolidation in both posterior lung bases left greater than right with air bronchograms. 2. Abnormal bowel gas pattern most consistent with an ileus. 3. Bilateral percutaneous drainage catheters in place. 4. Cardiomegaly. Patient is status post median sternotomy. Armen Rodriguez MD Chest CT 09/01/17 0000 Signed Impressions: Service Date/Time: August 07:15 - CONCLUSION: No acute CT findings of the chest Juan Rivera MD Physical Exam HEENT: Normocephalic; atraumatic intubated NGT to LIWS, reddish output CHEST: coarse CARDIAC: regular rate. + murmur ABDOMEN: bs+, soft, J tube, abdominal binder. EXTREMITIES: No clubbing, cyanosis, or edema. SKIN: Normal; no rash; no jaundice. 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 2 weeks ago had mult episodes CGE, last few days melena - anemia - hgb 5.5 on admission, macrocytic. 2/2 above. never had EGD or colonoscopy before. he is not sure if he wants procedures right now - abd pain - c/o lower abd pain but tender diffusely on exam. could be ulcers vs gastritis. CT abd unremarkable aside from nonspecific peritoneal fluid. - chest pain - chest CT neg. hx HOCM, s/p heart valve replacement, recent septomyectomy 2017. Cody Roy [phone]. (09/03) --> S/P EGD yesterday --> Hiatal hernia. large amount of old blood and retained food in stomach, duodenal bulb ulcer blocking duodenal bul, unable to pass scope, abdomen increasingly distended. Pt taken for emergent exploratory laparotomy --> findings of perforated duodenal ulcer with massive contamination. J tube placement. RAYMOND drain placement. Per RN GS planning on starting the pt on TF tomorrow. H/H stable. NGT to LIWS with green colored drainage. No BM per RN. 09/08/17 reconsulted for colon ileus. Pt had KUB this am showed colon ileus, constipation, colon distended 8.6cm. increasing NGT output. TF held. on bowel regimen. EES, reglan, relistor today. will see if that works. 09/09/17. KUB showed persistent ileus but with some improvement. + moderate BM reported. going for CT. on EES, reglan, bowel regimen 09/10/17 abdominal x-ray stable appearance of the abdomen significant hair remains throughout the colon. With turning patient in bed increased flatus noted. Diarrhea same loose with some particles but no active bleeding noted. Nurse states they attempted rectal Donaldson but stool was a thicker consistency and was not passing through. Current hemoglobin 7.5, no obvious upper GI bleeding stools are dark semi-loose. Plan to check Hemoccult. Recent KUB showed constipation on 09/08/17. Partial ileus probable improvement gradual. Patient has history of congenital heart disease and previous mitral valve surgery per dad. Patient has been on long-term Coumadin, now being held 09/11/17 mult BM documented, KUB shows mild gaseous distention. ileus seems to be improving. tolerating TF j tube 20ml/hr. still copioius ngt output and appears blood tinged. stool heme pos. subtle decrease HH today. PLAN - cont TF, increase as tolerated - monitor HH - transfuse as needed - if HH continues to drop, consider repeat EGD - supportive care Pt has been seen and examined by myself and Dr. Syed and myself and this note is on his behalf (Lashell Velazquez) Physician Comments Patient seen and examined Agree with above Continue with current supportive care Monitor labs Hemoglobin appears to be stable We will clamp NG tube suction (Pj Syed MD) Lashell Velazquez Sep 11, 2017 12:43 Pj Syed MD Sep 11, 2017 14:24
--- NOTE | 2017-09-11 15:11 | HHI.PR ---
cc: Joel Watson MD Subjective Subjective Notes DAILY PROGRESS NOTE FOR SURGICAL ATTENDING, DR. JOEL WATSON Family at bedside Discussed with mother and Discussed with Objective Vitals/I&O Vital Signs Date Time Temp Pulse Resp B/P (MAP) Pulse Ox O2 Delivery O2 Flow Rate FiO2 09/11/17 11:55 97 40 09/11/17 06:00 80 09/11/17 04:00 98.8 16 109/66 (80) Labs Laboratory Tests Test 09/10/17 17:50 09/11/17 04:10 Stool C. difficile Toxin (PCR) NEGATIVE Stl C. difficile Toxin Epiderm 027 PRESUMPTIVE NEGATIVE White Blood Count 11.0 Red Blood Count 2.42 Hemoglobin 7.2 Hematocrit 21.7 Mean Corpuscular Volume 89.7 Mean Corpuscular Hemoglobin 29.6 Mean Corpuscular Hemoglobin Concent 32.9 Red Cell Distribution Width 19.0 Platelet Count 188 Mean Platelet Volume 7.9 Neutrophils (%) (Auto) 79.3 Lymphocytes (%) (Auto) 10.9 Monocytes (%) (Auto) 5.8 Eosinophils (%) (Auto) 3.0 Basophils (%) (Auto) 1.0 Neutrophils # (Auto) 8.7 Lymphocytes # (Auto) 1.2 Monocytes # (Auto) 0.6 Eosinophils # (Auto) 0.3 Basophils # (Auto) 0.1 CBC Comment DIFF FINAL Differential Comment Activated Partial Thromboplast Time 47.4 Blood Urea Nitrogen 20 Creatinine 0.83 Random Glucose 99 Calcium Level 7.9 Phosphorus Level 3.1 Magnesium Level 1.7 Sodium Level 145 Potassium Level 3.2 Chloride Level 110 Carbon Dioxide Level 28.3 Anion Gap 7 Estimat Glomerular Filtration Rate 103 Date/Time Source Procedure Growth Status 09/08/17 04:00 Blood Peripheral Aerobic Blood Culture - Preliminary NO GROWTH IN 3 DAYS Resulted 09/08/17 04:00 Blood Peripheral Anaerobic Blood Culture - Preliminary NO GROWTH IN 3 DAYS Resulted 09/10/17 17:50 Stool Stool Stool Occult Blood (TARAN) - Final HEMOCCULT POSITIVE Complete 09/09/17 19:00 Sputum Endotracheal Gram Stain - Final Complete 09/09/17 19:00 Sputum Endotracheal Sputum Culture - Final RARE GROWTH NORMAL RESPIRATORY MAXIM Complete 09/07/17 16:20 Urine Catheterized Urine Urine Culture - Final NO GROWTH IN 48 HOURS. Complete Radiology Last Impressions Abdomen X-Ray 09/09/17 0600 Signed Impressions: Service Date/Time: Saturday, September 09, 2017 04:25 - CONCLUSION: Persistent ileus but slightly improved. Juan Trotter MD Abdomen/Pelvis CT 09/09/17 0000 Signed Impressions: Service Date/Time: Saturday, September 09, 2017 16:36 - CONCLUSION: 1. New bilateral pleural effusions and consolidation in both posterior lung bases left greater than right with air bronchograms. 2. Abnormal bowel gas pattern most consistent with an ileus. 3. Bilateral percutaneous drainage catheters in place. 4. Cardiomegaly. Patient is status post median sternotomy. Armen Rodriguez MD Chest X-Ray 09/08/17 0600 Signed Impressions: Service Date/Time: August 05:49 - CONCLUSION: 1. Stable exam. Support apparatus unchanged. Joel Garcia MD Chest CT 09/01/17 0000 Signed Impressions: Service Date/Time: August 07:15 - CONCLUSION: No acute CT findings of the chest Juan Rivera MD Last Impressions Chest X-Ray 09/04/17 0600 Signed Impressions: Service Date/Time: Monday, September 04, 2017 03:33 - CONCLUSION: 1. No significant change. Armen Rodriguez MD Abdomen X-Ray 09/02/17 1654 Signed Impressions: Service Date/Time: Saturday, September 02, 2017 17:47 - CONCLUSION: 1. Probable free intraperitoneal air. Further evaluation with abdomen and pelvic CT recommended. Joel Garcia MD Abdomen/Pelvis CT 09/01/17 0559 Signed Impressions: Service Date/Time: August 07:15 - CONCLUSION: Nonspecific free peritoneal fluid. No acute focal abnormalities. Juan Rivera MD Chest CT 09/01/17 0000 Signed Impressions: Service Date/Time: August 07:15 - CONCLUSION: No acute CT findings of the chest Juan Rivera MD Cardiovascular: Regular Lungs: Other (ventilator) Abdomen: Non-distended, BS normal Extremities: SCD's on, Other (bilateral upper and lower extremity edema) Narrative Exam alexi clear drainage Having bowel movements Decreasing NG output Tolerating tube feeds A/P Problem List: (1) Status post exploratory laparotomy ICD Codes: Z98.890 - Other specified postprocedural states Status: Acute (2) Duodenal ulcer perforation ICD Codes: K26.5 - Chronic or unspecified duodenal ulcer with perforation Status: Chronic (3) Duodenal ulcer with perforation ICD Codes: K26.5 - Chronic or unspecified duodenal ulcer with perforation Status: Chronic (4) H/O hypertrophic cardiomyopathy ICD Codes: Z86.79 - Personal history of other diseases of the circulatory system Status: Chronic (5) Perforation of duodenal ulcer ICD Codes: K26.5 - Chronic or unspecified duodenal ulcer with perforation Status: Acute (6) Anemia ICD Codes: D64.9 - Anemia, unspecified Status: Acute (7) GI bleed ICD Codes: K92.2 - Gastrointestinal hemorrhage, unspecified Status: Acute (8) AICD (automatic cardioverter/defibrillator) present ICD Codes: Z95.810 - AICD (automatic cardioverter/defibrillator) present Status: Chronic (9) S/P MVR (mitral valve replacement) ICD Codes: Z95.4 - S/P MVR (mitral valve replacement) Status: Chronic Permanent Comment: Need prophyllaxis - Due to endocarditis Last Edited By: Ozzy Edwards on May 26, 2014 13:06 (10) H/O mitral valve replacement with mechanical valve ICD Codes: Z95.2 - Presence of prosthetic heart valve Status: Chronic (11) Malnutrition ICD Codes: E46 - Unspecified protein-calorie malnutrition Status: Chronic (12) Serum albumin decreased ICD Codes: E88.09 - Other disorders of plasma-protein metabolism, not elsewhere classified Status: Chronic (13) Chronic anticoagulation ICD Codes: Z79.01 - terminal gauger (current) use of anticoagulants Status: Chronic Assessment and Plan 41-year-old gentleman with a heart valve perforated duodenal ulcer requiring Jay patch Discussed with Dr. mack Start to mobilize fluid Increase tube feeds as tolerated Wean from ventilator as tolerated Okay to start anticoagulation Attending Statement NOTE FOR SURGICAL ATTENDING, DR. JOEL WATSON I attest that I had a [id number] encounter with the patient on the same day, and personally performed and documented my assessment and findings in the medical record. The following services were provided during this hospital visit: Chart data review, vital sign assessments/reviewing monitor data Review of consultations notes if present. Medication orders/review and/or management Ordering and/or reviewing lab tests Ordering and/or interpreting/reviewing x-rays and/or diagnostic studies Care of the patient and discussion of the patient with the care team Documentation time To help prompt me to consider important information that might be impacting today's encounter and assessment, information from prior notes written by myself or my colleagues may have been "brought forward/copy and pasted" into today's note. Problem Qualifiers (1) Anemia: Qualified Codes: D62 - Acute posthemorrhagic anemia (2) GI bleed: Qualified Codes: K26.4 - Chronic or unspecified duodenal ulcer with hemorrhage (3) Malnutrition: Joel Watson MD Sep 11, 2017 15:11
[2017-09-11] MEDS: FLUCONAZOLE 400 MG PREMIX BAG 200 ML IV SCH (18:00)
[2017-09-12] VITALS (20 sets, daily range): BP systolic 97–129; BP diastolic 52–83; PULSE 66–99; RESP 16–24; TEMP 98.8–99.4; O2SAT 96–100
[2017-09-12] MEDS: 1/2 NS + KCL 20 MEQ INJ 1,000 ML IV SCH ×2 (01:24→13:55)
[2017-09-12] MEDS: PIPERACIL-TAZO 3.375 GM PREMIX 50 ML IV SCH ×2 (01:24→08:36)
[2017-09-12] MEDS: PROPOFOL 1000 MG/100 ML IV PRN (04:01)
[2017-09-12] MEDS: MIDAZOLAM 100 MG/100 ML INJ 100 ML IV PRN ×3 (04:02→16:30)
--- NOTE | 2017-09-12 05:50 | RADRPT ---
EXAM DATE/TIME: 09/12/2017 05:09 [place] COMPARISON: ABDOMEN KUB ONLY, September 11, 2017, 4:54. INDICATIONS : Abdominal distention, evaluate ileus MEDICAL HISTORY : Myocardial infarction. Congestive heart failure. SURGICAL HISTORY : Pacemaker. mitral valve replaced ENCOUNTER: Subsequent ACUITY: 1 week PAIN SCORE: Non-responsive. LOCATION: Bilateral abdomen FINDINGS: Nasogastric tube descends into the stomach. John drain projects over the right mid abdomen with a multiside hole tube of some type in the left lower quadrant. There has been decrease in gaseous diste ntion of bowel. No suspicious calcific densities are present. Midline skin mary remain. CONCLUSION: Decreased gaseous distention of bowel Juan Rivera MD on September 12, 2017 at 5:48 Board Certified Radiologist. This report was verified electronically.
[2017-09-12 05:54] LABS: AUTOMATED NEUTROPHIL # 8.9 TH/MM3 (1.8-7.7); BASOPHIL # 0.1 TH/MM3 (0-0.2); EOSINOPHIL # 0.3 TH/MM3 (0-0.4); EOSINOPHIL % 2.7 % (0.0-4.0); HEMATOCRIT 23.8 % (39.0-51.0); LYMPH % 14.3 % (9.0-44.0); LYMPHOCYTE # 1.7 TH/MM3 (1.0-4.8); MEAN CELL VOLUME 88.1 FL (80.0-100.0); MEAN CORPUSCULAR HEMOGLOBIN 29.5 PG (27.0-34.0); MEAN CORPUSCULAR HGB CONC 33.5 % (32.0-36.0); MEAN PLATELET VOLUME 8.1 FL (7.0-11.0); MONO % 5.2 % (0.0-8.0); MONOCYTE # 0.6 TH/MM3 (0-0.9); NEUT % 76.8 % (16.0-70.0); PLATELET COUNT 256 TH/MM3 (150-450); RED CELL DISTRIBUTION WIDTH 17.8 % (11.6-17.2); WHITE BLOOD COUNT 11.6 TH/MM3 (4.0-11.0)
[2017-09-12] MEDS: ARTIFICIAL TEARS OPTH SOLN 15 ML BTL EACH EYE SCH ×3 (06:00→21:03)
[2017-09-12] MEDS: METOCLOPRAMIDE HCL 10 MG/2 ML VIAL IV PUSH SCH ×3 (06:07→21:03)
[2017-09-12] MEDS: ERYTHROMYCIN ETHYLSUCCINATE 200 MG/5 ML SUSP 100 ML BOTTLE PO SCH ×3 (06:07→21:03)
[2017-09-12 06:21] LABS: ALBUMIN 1.8 GM/DL (3.4-5.0); AST (GOT) 28 U/L (15-37); BICARBONATE 27.6 MEQ/L (21.0-32.0); BLOOD UREA NITROGEN 17 MG/DL (7-18); CALCIUM 7.9 MG/DL (8.5-10.1); CHLORIDE 109 MEQ/L (98-107); CREATININE 0.86 MG/DL (0.60-1.30); GLOMERULAR FILTRATION RATE 99 ML/MIN (>89); GLUCOSE,RANDOM 90 MG/DL (74-106); MAGNESIUM 1.8 MG/DL (1.5-2.5); SODIUM (NA) 145 MEQ/L (136-145)
[2017-09-12 06:22] LABS: ALT (GPT) 20 U/L (12-78); PHOSPHORUS 4.1 MG/DL (2.5-4.9)
[2017-09-12 06:25] LABS: ALKALINE PHOSPHATASE 67 U/L (45-117); TOTAL BILIRUBIN ADULT 0.5 MG/DL (0.2-1.0); TOTAL PROTEIN 5.4 GM/DL (6.4-8.2)
[2017-09-12] MEDS: SENNOSIDES SYRUP 8.8 MG/5 ML CUP PO SCH ×2 (08:35→20:35)
[2017-09-12] MEDS: ARIPiprazole 5 MG TAB PO SCH ×2 (08:35→20:34)
[2017-09-12] MEDS: PANTOPRAZOLE SODIUM 40 MG VIAL IV PUSH SCH ×2 (08:35→20:34)
[2017-09-12] MEDS: DULoxetine HCl DR 30 MG CAP PO SCH (08:35)
[2017-09-12] MEDS: DOCUSATE SODIUM 100 MG/10 ML UDC PO SCH ×2 (08:36→20:34)
[2017-09-12] MEDS: SODIUM CHLORIDE 0.9% FLUSH 10 ML FLUSH IV FLUSH SCH ×2 (08:36→20:34)
[2017-09-12] MEDS: FUROSEMIDE 20 MG/2 ML VIAL IV PUSH SCH (08:36)
[2017-09-12] MEDS: ICU - POTASSIUM CHLORIDE/AQUEOUS SOLN 40 MEQ/100 ML IVPB IV PRN ×2 (08:36→12:17)
[2017-09-12] MEDS: LACTULOSE SYRUP 20 GM/30 ML CUP PO SCH ×2 (08:37→20:34)
[2017-09-12] MEDS: POLYETHYLENE GLYCOL 17 GM PKG PO SCH ×2 (08:37→20:34)
[2017-09-12] MEDS: REMOVE OLD PATCH T-DERMAL SCH (08:37)
[2017-09-12] MEDS: NICOTINE 14 MG/24 HR PATCH T-DERMAL SCH (08:37)
--- NOTE | 2017-09-12 10:41 | HHI.PR ---
cc: Joel Watson MD Subjective Subjective Notes DAILY PROGRESS NOTE FOR SURGICAL ATTENDING, DR. JOEL WATSON Having bowel movements Weaning from ventilator Objective Vitals/I&O Vital Signs Date Time Temp Pulse Resp B/P (MAP) Pulse Ox O2 Delivery O2 Flow Rate FiO2 09/12/17 10:30 40 09/12/17 10:00 83 09/12/17 08:00 98.8 17 105/65 (78) 100 Labs Laboratory Tests Test 09/12/17 05:20 White Blood Count 11.6 Red Blood Count 2.70 Hemoglobin 8.0 Hematocrit 23.8 Mean Corpuscular Volume 88.1 Mean Corpuscular Hemoglobin 29.5 Mean Corpuscular Hemoglobin Concent 33.5 Red Cell Distribution Width 17.8 Platelet Count 256 Mean Platelet Volume 8.1 Neutrophils (%) (Auto) 76.8 Lymphocytes (%) (Auto) 14.3 Monocytes (%) (Auto) 5.2 Eosinophils (%) (Auto) 2.7 Basophils (%) (Auto) 1.0 Neutrophils # (Auto) 8.9 Lymphocytes # (Auto) 1.7 Monocytes # (Auto) 0.6 Eosinophils # (Auto) 0.3 Basophils # (Auto) 0.1 CBC Comment DIFF FINAL Differential Comment Activated Partial Thromboplast Time 40.8 Blood Urea Nitrogen 17 Creatinine 0.86 Random Glucose 90 Total Protein 5.4 Albumin 1.8 Calcium Level 7.9 Phosphorus Level 4.1 Magnesium Level 1.8 Alkaline Phosphatase 67 Aspartate Amino Transf (AST/SGOT) 28 Alanine Aminotransferase (ALT/SGPT) 20 Total Bilirubin 0.5 Sodium Level 145 Potassium Level 3.1 Chloride Level 109 Carbon Dioxide Level 27.6 Anion Gap 8 Estimat Glomerular Filtration Rate 99 Date/Time Source Procedure Growth Status 09/08/17 04:00 Blood Peripheral Aerobic Blood Culture - Preliminary NO GROWTH IN 3 DAYS Resulted 09/08/17 04:00 Blood Peripheral Anaerobic Blood Culture - Preliminary NO GROWTH IN 3 DAYS Resulted 09/10/17 17:50 Stool Stool Stool Occult Blood (TARAN) - Final HEMOCCULT POSITIVE Complete 09/09/17 19:00 Sputum Endotracheal Gram Stain - Final Complete 09/09/17 19:00 Sputum Endotracheal Sputum Culture - Final RARE GROWTH NORMAL RESPIRATORY MAXIM Complete 09/07/17 16:20 Urine Catheterized Urine Urine Culture - Final NO GROWTH IN 48 HOURS. Complete Radiology Last Impressions Abdomen X-Ray 09/12/17 0600 Signed Impressions: Service Date/Time: Tuesday, September 12, 2017 05:09 - CONCLUSION: Decreased gaseous distention of bowel Juan Rivera MD Chest X-Ray 09/11/17 0600 Signed Impressions: Service Date/Time: Monday, September 11, 2017 04:51 - CONCLUSION: 1. Cardiomegaly. Mild edema pattern stable to slightly improved from September 10. No new infiltrate. No pneumothorax. Support apparatus unchanged. Joel Garcia MD Abdomen/Pelvis CT 09/09/17 0000 Signed Impressions: Service Date/Time: Saturday, September 09, 2017 16:36 - CONCLUSION: 1. New bilateral pleural effusions and consolidation in both posterior lung bases left greater than right with air bronchograms. 2. Abnormal bowel gas pattern most consistent with an ileus. 3. Bilateral percutaneous drainage catheters in place. 4. Cardiomegaly. Patient is status post median sternotomy. Armen Rodriguez MD Chest CT 09/01/17 0000 Signed Impressions: Service Date/Time: , September 01, 2017 07:15 - CONCLUSION: No acute CT findings of the chest Juan Rivera MD Lungs: Other (ventilator settings) Abdomen: Other, BS normal Extremities: No edema, Perfused, SCD's on Narrative Exam alexi clear drainage Having bowel movements Decreasing NG output Tolerating tube feeds at 30 cc A/P Problem List: (1) Status post exploratory laparotomy ICD Codes: Z98.890 - Other specified postprocedural states Status: Acute (2) Duodenal ulcer perforation ICD Codes: K26.5 - Chronic or unspecified duodenal ulcer with perforation Status: Chronic (3) Duodenal ulcer with perforation ICD Codes: K26.5 - Chronic or unspecified duodenal ulcer with perforation Status: Chronic (4) H/O hypertrophic cardiomyopathy ICD Codes: Z86.79 - Personal history of other diseases of the circulatory system Status: Chronic (5) Perforation of duodenal ulcer ICD Codes: K26.5 - Chronic or unspecified duodenal ulcer with perforation Status: Acute (6) Anemia ICD Codes: D64.9 - Anemia, unspecified Status: Acute (7) GI bleed ICD Codes: K92.2 - Gastrointestinal hemorrhage, unspecified Status: Acute (8) AICD (automatic cardioverter/defibrillator) present ICD Codes: Z95.810 - AICD (automatic cardioverter/defibrillator) present Status: Chronic (9) S/P MVR (mitral valve replacement) ICD Codes: Z95.4 - S/P MVR (mitral valve replacement) Status: Chronic Permanent Comment: Need prophyllaxis - Due to endocarditis Last Edited By: Ozzy Edwards on May 26, 2014 13:06 (10) H/O mitral valve replacement with mechanical valve ICD Codes: Z95.2 - Presence of prosthetic heart valve Status: Chronic (11) Malnutrition ICD Codes: E46 - Unspecified protein-calorie malnutrition Status: Chronic (12) Serum albumin decreased ICD Codes: E88.09 - Other disorders of plasma-protein metabolism, not elsewhere classified Status: Chronic (13) Chronic anticoagulation ICD Codes: Z79.01 - half-way (current) use of anticoagulants Status: Chronic Assessment and Plan 41-year-old gentleman with a heart valve perforated duodenal ulcer requiring Jay patch Starting to increase bowel activity Increased to feeds as tolerated Wean ventilator per critical care Attending Statement NOTE FOR SURGICAL ATTENDING, DR. JOEL WATSON I attest that I had a [id number] encounter with the patient on the same day, and personally performed and documented my assessment and findings in the medical record. The following services were provided during this hospital visit: Chart data review, vital sign assessments/reviewing monitor data Review of consultations notes if present. Medication orders/review and/or management Ordering and/or reviewing lab tests Ordering and/or interpreting/reviewing x-rays and/or diagnostic studies Care of the patient and discussion of the patient with the care team Documentation time To help prompt me to consider important information that might be impacting today's encounter and assessment, information from prior notes written by myself or my colleagues may have been "brought forward/copy and pasted" into today's note. Problem Qualifiers (1) Anemia: Qualified Codes: D62 - Acute posthemorrhagic anemia (2) GI bleed: Qualified Codes: K26.4 - Chronic or unspecified duodenal ulcer with hemorrhage (3) Malnutrition: Joel Watson MD Sep 12, 2017 10:41
--- NOTE | 2017-09-12 11:18 | HHI.GIFU ---
Subjective Remarks + BM documented. TF running 30ml/hr, NGT is. (Lashell Velazquez) Objective Vitals I&O Vital Signs Date Time Temp Pulse Resp B/P (MAP) Pulse Ox O2 Delivery O2 Flow Rate FiO2 09/12/17 10:30 40 09/12/17 10:00 83 09/12/17 08:00 98.8 72 17 105/65 (78) 100 09/12/17 08:00 40 09/12/17 08:00 72 09/12/17 06:00 78 09/12/17 04:20 100 40 09/12/17 04:00 72 09/12/17 04:00 40 09/12/17 04:00 98.8 72 16 97/59 (72) 100 09/12/17 03:15 98.8 71 16 97/59 100 09/12/17 02:00 71 09/12/17 00:25 90 16 106/61 100 09/12/17 00:17 90 16 106/64 99 09/12/17 00:12 98.8 88 16 99/59 99 09/12/17 00:06 96 50 09/12/17 00:00 99.2 92 16 99/52 (68) 97 09/12/17 00:00 92 09/12/17 00:00 50 09/11/17 22:00 92 09/11/17 20:00 84 09/11/17 20:00 99.5 86 16 115/73 (87) 100 09/11/17 20:00 50 09/11/17 19:57 98 50 09/11/17 18:00 91 09/11/17 17:09 98 50 09/11/17 16:00 50 09/11/17 16:00 88 09/11/17 16:00 99.6 88 19 112/78 (89) 97 09/11/17 14:00 83 09/11/17 12:30 40 09/11/17 12:00 40 09/11/17 12:00 87 09/11/17 12:00 99.8 87 28 118/74 (89) 98 09/11/17 11:55 97 40 I/O 09/11/17 09/11/17 09/11/17 09/12/17 09/12/17 09/12/17 07:00 15:00 23:00 07:00 15:00 23:00 Intake Total 620 ml 1200 ml 1410 ml 982 ml Output Total 960 ml 2400 ml 405 ml Balance -340 ml 1200 ml -990 ml 577 ml Intake Oral 0 ml 0 ml IV Total 1200 ml 950 ml Tube Feeding 220 ml 260 ml 170 ml Packed Cells 400 ml Blood Product IV Normal Saline Flush 12 ml Other 400 ml 200 ml 400 ml Output Urine Total 550 ml 1950 ml 400 ml Stool Total 400 ml Gastric Drainage Total 400 ml 25 ml Drainage Total 10 ml 25 ml 5 ml # Bowel Movements 2 2 5 Laboratory Laboratory Tests Test 09/12/17 05:20 White Blood Count 11.6 Red Blood Count 2.70 Hemoglobin 8.0 Hematocrit 23.8 Mean Corpuscular Volume 88.1 Mean Corpuscular Hemoglobin 29.5 Mean Corpuscular Hemoglobin Concent 33.5 Red Cell Distribution Width 17.8 Platelet Count 256 Mean Platelet Volume 8.1 Neutrophils (%) (Auto) 76.8 Lymphocytes (%) (Auto) 14.3 Monocytes (%) (Auto) 5.2 Eosinophils (%) (Auto) 2.7 Basophils (%) (Auto) 1.0 Neutrophils # (Auto) 8.9 Lymphocytes # (Auto) 1.7 Monocytes # (Auto) 0.6 Eosinophils # (Auto) 0.3 Basophils # (Auto) 0.1 CBC Comment DIFF FINAL Differential Comment Activated Partial Thromboplast Time 40.8 Blood Urea Nitrogen 17 Creatinine 0.86 Random Glucose 90 Total Protein 5.4 Albumin 1.8 Calcium Level 7.9 Phosphorus Level 4.1 Magnesium Level 1.8 Alkaline Phosphatase 67 Aspartate Amino Transf (AST/SGOT) 28 Alanine Aminotransferase (ALT/SGPT) 20 Total Bilirubin 0.5 Sodium Level 145 Potassium Level 3.1 Chloride Level 109 Carbon Dioxide Level 27.6 Anion Gap 8 Estimat Glomerular Filtration Rate 99 Date/Time Source Procedure Growth Status 09/08/17 04:00 Blood Peripheral Aerobic Blood Culture - Preliminary NO GROWTH IN 4 DAYS Resulted 09/08/17 04:00 Blood Peripheral Anaerobic Blood Culture - Preliminary NO GROWTH IN 4 DAYS Resulted 09/10/17 17:50 Stool Stool Stool Occult Blood (TARAN) - Final HEMOCCULT POSITIVE Complete 09/09/17 19:00 Sputum Endotracheal Gram Stain - Final Complete 09/09/17 19:00 Sputum Endotracheal Sputum Culture - Final RARE GROWTH NORMAL RESPIRATORY MAXIM Complete 09/07/17 16:20 Urine Catheterized Urine Urine Culture - Final NO GROWTH IN 48 HOURS. Complete Imaging Last Impressions Abdomen X-Ray 09/12/17 0600 Signed Impressions: Service Date/Time: Tuesday, September 12, 2017 05:09 - CONCLUSION: Decreased gaseous distention of bowel Juan Rivera MD Chest X-Ray 09/11/17 0600 Signed Impressions: Service Date/Time: Monday, September 11, 2017 04:51 - CONCLUSION: 1. Cardiomegaly. Mild edema pattern stable to slightly improved from September 10. No new infiltrate. No pneumothorax. Support apparatus unchanged. Joel Garcia MD Abdomen/Pelvis CT 09/09/17 0000 Signed Impressions: Service Date/Time: Saturday, September 09, 2017 16:36 - CONCLUSION: 1. New bilateral pleural effusions and consolidation in both posterior lung bases left greater than right with air bronchograms. 2. Abnormal bowel gas pattern most consistent with an ileus. 3. Bilateral percutaneous drainage catheters in place. 4. Cardiomegaly. Patient is status post median sternotomy. Armen Rodriguez MD Chest CT 09/01/17 0000 Signed Impressions: Service Date/Time: August 07:15 - CONCLUSION: No acute CT findings of the chest Juan Rivera MD Physical Exam HEENT: Normocephalic; atraumatic intubated NGT clamped CHEST: coarse CARDIAC: regular rate. + murmur ABDOMEN: bs+, soft, J tube, abdominal binder. EXTREMITIES: No clubbing, cyanosis, or edema. SKIN: Normal; no rash; no jaundice. TRUCKER: on vent, opens eyes (Lashell Velazquez ASSISTANT PROFESSOR OF ART) Assessment and Plan Plan ASSESSMENT - coffee ground emesis, melanotic stool - UGIB using mobic for last 2 weeks. 2 weeks ago had mult episodes CGE, last few days melena - anemia - hgb 5.5 on admission, macrocytic. 2/2 above. never had EGD or colonoscopy before. he is not sure if he wants procedures right now - abd pain - c/o lower abd pain but tender diffusely on exam. could be ulcers vs gastritis. CT abd unremarkable aside from nonspecific peritoneal fluid. - chest pain - chest CT neg. hx HOCM, s/p heart valve replacement, recent septomyectomy 2017. Cody Roy [phone]. (09/03) --> S/P EGD yesterday --> Hiatal hernia. large amount of old blood and retained food in stomach, duodenal bulb ulcer blocking duodenal bul, unable to pass scope, abdomen increasingly distended. Pt taken for emergent exploratory laparotomy --> findings of perforated duodenal ulcer with massive contamination. J tube placement. RAYMOND drain placement. Per RN GS planning on starting the pt on TF tomorrow. H/H stable. NGT to LIWS with green colored drainage. No BM per RN. 09/08/17 reconsulted for colon ileus. Pt had KUB this am showed colon ileus, constipation, colon distended 8.6cm. increasing NGT output. TF held. on bowel regimen. EES, reglan, relistor today. will see if that works. 09/09/17. KUB showed persistent ileus but with some improvement. + moderate BM reported. going for CT. on EES, reglan, bowel regimen 09/10/17 abdominal x-ray stable appearance of the abdomen significant hair remains throughout the colon. With turning patient in bed increased flatus noted. Diarrhea same loose with some particles but no active bleeding noted. Nurse states they attempted rectal Donaldson but stool was a thicker consistency and was not passing through. Current hemoglobin 7.5, no obvious upper GI bleeding stools are dark semi-loose. Plan to check Hemoccult. Recent KUB showed constipation on 09/08/17. Partial ileus probable improvement gradual. Patient has history of congenital heart disease and previous mitral valve surgery per dad. Patient has been on long-term Coumadin, now being held 09/11/17 mult BM documented, KUB shows mild gaseous distention. ileus seems to be improving. tolerating TF j tube 20ml/hr. still copioius ngt output and appears blood tinged. stool heme pos. subtle decrease HH today. 09/12/17 HH stable. ileus seems to be improving. KUB showed improvement. abd soft, + BM, constance TF 30ml/hr. NGT clamped. GS following. PLAN - cont TF, increase as tolerated - monitor HH - transfuse as needed - supportive care - GI will sign off. please reconsult if needed Pt has been seen and examined by myself and Dr. Hurtado and myself and this note is on his behalf (Lashell Velazquez) Physician Comments Seen and examined with MARCOS, annelise dutta. Anxiety a factor in weaning pt. off ventilator. NG to LIS. Gi will sign off. Discussed with family at the bedside. (Jennifer Hurtado MD) Lashell Velazquez Sep 12, 2017 11:18 Jennifer Hurtado MD Sep 12, 2017 16:50
[2017-09-12] MEDS: HEPARIN-D5W 25,000 U/250 ML 250 ML IV PRN (12:01)
--- NOTE | 2017-09-12 12:56 | HHI.IDPN ---
Subjective Subjective Remarks doing good WBC 11K borderline temps T max 99.2 stooling weaning Antibiotics fluconazole zosyn Allergies: Coded Allergies: haloperidol (Unverified Allergy, Severe, DYSTONIC REACTION, 09/01/17) lorazepam (Unverified Allergy, Severe, SEVERE AGITATION, 09/01/17) promethazine (Unverified Allergy, Severe, SEVERE AGITATION, 09/01/17) zolpidem (Unverified Allergy, Severe, severe agitation, 09/01/17) Objective . Vital Signs Date Time Temp Pulse Resp B/P (MAP) Pulse Ox O2 Delivery O2 Flow Rate FiO2 09/12/17 12:00 92 09/12/17 12:00 99.4 99 19 116/72 (87) 98 09/12/17 12:00 40 09/12/17 10:30 40 09/12/17 10:00 83 09/12/17 08:00 98.8 72 17 105/65 (78) 100 09/12/17 08:00 40 09/12/17 08:00 72 09/12/17 06:00 78 09/12/17 04:20 100 40 09/12/17 04:00 72 09/12/17 04:00 40 09/12/17 04:00 98.8 72 16 97/59 (72) 100 09/12/17 03:15 98.8 71 16 97/59 100 09/12/17 02:00 71 09/12/17 00:25 90 16 106/61 100 09/12/17 00:17 90 16 106/64 99 09/12/17 00:12 98.8 88 16 99/59 99 09/12/17 00:06 96 50 09/12/17 00:00 99.2 92 16 99/52 (68) 97 09/12/17 00:00 92 09/12/17 00:00 50 09/11/17 22:00 92 09/11/17 20:00 84 09/11/17 20:00 99.5 86 16 115/73 (87) 100 09/11/17 20:00 50 09/11/17 19:57 98 50 09/11/17 18:00 91 09/11/17 17:09 98 50 09/11/17 16:00 50 09/11/17 16:00 88 09/11/17 16:00 99.6 88 19 112/78 (89) 97 09/11/17 14:00 83 . Laboratory Tests Test 09/11/17 04:10 09/12/17 05:20 White Blood Count 11.0 TH/MM3 11.6 TH/MM3 Red Blood Count 2.42 MIL/MM3 2.70 MIL/MM3 Hemoglobin 7.2 GM/DL 8.0 GM/DL Hematocrit 21.7 % 23.8 % Mean Corpuscular Volume 89.7 FL 88.1 FL Mean Corpuscular Hemoglobin 29.6 PG 29.5 PG Mean Corpuscular Hemoglobin Concent 32.9 % 33.5 % Red Cell Distribution Width 19.0 % 17.8 % Platelet Count 188 TH/MM3 256 TH/MM3 Mean Platelet Volume 7.9 FL 8.1 FL Neutrophils (%) (Auto) 79.3 % 76.8 % Lymphocytes (%) (Auto) 10.9 % 14.3 % Monocytes (%) (Auto) 5.8 % 5.2 % Eosinophils (%) (Auto) 3.0 % 2.7 % Basophils (%) (Auto) 1.0 % 1.0 % Neutrophils # (Auto) 8.7 TH/MM3 8.9 TH/MM3 Lymphocytes # (Auto) 1.2 TH/MM3 1.7 TH/MM3 Monocytes # (Auto) 0.6 TH/MM3 0.6 TH/MM3 Eosinophils # (Auto) 0.3 TH/MM3 0.3 TH/MM3 Basophils # (Auto) 0.1 TH/MM3 0.1 TH/MM3 CBC Comment DIFF FINAL DIFF FINAL Differential Comment Laboratory Tests Test 09/10/17 14:55 09/11/17 04:10 09/12/17 05:20 Potassium Level 3.1 MEQ/L 3.2 MEQ/L 3.1 MEQ/L Blood Urea Nitrogen 20 MG/DL 17 MG/DL Creatinine 0.83 MG/DL 0.86 MG/DL Random Glucose 99 MG/DL 90 MG/DL Calcium Level 7.9 MG/DL 7.9 MG/DL Phosphorus Level 3.1 MG/DL 4.1 MG/DL Magnesium Level 1.7 MG/DL 1.8 MG/DL Sodium Level 145 MEQ/L 145 MEQ/L Chloride Level 110 MEQ/L 109 MEQ/L Carbon Dioxide Level 28.3 MEQ/L 27.6 MEQ/L Anion Gap 7 MEQ/L 8 MEQ/L Estimat Glomerular Filtration Rate 103 ML/MIN 99 ML/MIN Total Protein 5.4 GM/DL Albumin 1.8 GM/DL Alkaline Phosphatase 67 U/L Aspartate Amino Transf (AST/SGOT) 28 U/L Alanine Aminotransferase (ALT/SGPT) 20 U/L Total Bilirubin 0.5 MG/DL Microbiology Date/Time Source Procedure Growth Status 09/10/17 17:50 Stool Stool Stool Occult Blood (TARAN) - Final HEMOCCULT POSITIVE Complete 09/09/17 19:00 Sputum Endotracheal Gram Stain - Final Complete 09/09/17 19:00 Sputum Endotracheal Sputum Culture - Final RARE GROWTH NORMAL RESPIRATORY MAXIM Complete Imaging Last Impressions Abdomen X-Ray 09/12/17 0600 Signed Impressions: Service Date/Time: Tuesday, September 12, 2017 05:09 - CONCLUSION: Decreased gaseous distention of bowel Juan Rivera MD Chest X-Ray 09/11/17 0600 Signed Impressions: Service Date/Time: Monday, September 11, 2017 04:51 - CONCLUSION: 1. Cardiomegaly. Mild edema pattern stable to slightly improved from September 10. No new infiltrate. No pneumothorax. Support apparatus unchanged. Joel Garcia MD Abdomen/Pelvis CT 09/09/17 0000 Signed Impressions: Service Date/Time: Saturday, September 09, 2017 16:36 - CONCLUSION: 1. New bilateral pleural effusions and consolidation in both posterior lung bases left greater than right with air bronchograms. 2. Abnormal bowel gas pattern most consistent with an ileus. 3. Bilateral percutaneous drainage catheters in place. 4. Cardiomegaly. Patient is status post median sternotomy. Armen Rodriguez MD Chest CT 09/01/17 0000 Signed Impressions: Service Date/Time: August 07:15 - CONCLUSION: No acute CT findings of the chest Juan Rivera MD Physical Exam CONSTITUTIONAL/GENERAL: This is an adequately nourished patient, in no apparent distress. Sedated intubated, on vent SKIN: No jaundice, rashes, or lesions. Skin temperature appropriate. Not diaphoretic. EYES: Pupils equal and round and reactive. Extraocular motions intact. No scleral icterus. No injection or drainage. Fundi not examined. NECK: Trachea midline. Supple, nontender. No palpable thyroid enlargement or nodularity. CARDIOVASCULAR: Regular rate and rhythm with 2-3/6 systolic murmur, no gallops , or rubs. Mechanical saini sounds No JVD. Peripheral pulses symmetric. RESPIRATORY/CHEST: Symmetric, unlabored respirations. Clear to auscultation. Breath sounds equal bilaterally. No wheezes, rales, or rhonchi. GASTROINTESTINAL: Abdomen soft, non-tender, nondistended. No hepato-splenomegaly , or palpable masses. No guarding. BS hypoactive Dressin gin place rectal tube in place with liquid brown stool GENITOURINARY: Without palpable bladder distension. Donaldson catheter in place with yellow urine MUSCULOSKELETAL: Extremities without clubbing, cyanosis, + 1edema. No joint tenderness or effusion noted. No calf tenderness. NEUROLOGICAL:Sedated, PSYCHIATRIC: unable to assess Assessment & Plan Remarks Perforated duodenal ulcer with massive contamination. Sepsis (bandemia, hemodynamic instability acute VDRF and ARF) Sp prosthetic mech valve Remote h/o endocarditis acute VDRF resolved leukocytosis, Ileus - resolved neg C.diff Probably not UTI - clx negative complete zosyn, fluconazole dw Melanie Serrano MD Sep 12, 2017 12:56
[2017-09-12] MEDS ORDERED: DEXMEDETOMIDINE INJ 200 MCG in SODIUM CHLORIDE 0.9% INJ 50 ML IV PRN (16:30)
[2017-09-12] MEDS: DEXMEDETOMIDINE INJ 1,000 MCG in SODIUM CHLOR 0.9% 250 ML INJ 240 ML IV PRN (16:45)
[2017-09-12] MEDS: clonazePAM 0.5 MG TAB PO PRN (20:39)
--- NOTE | 2017-09-12 23:59 | HHI.CCPN ---
Subjective Remarks/Hospital Course 09/02: 41-year-old male who presented to [facility] on 09/01/2017 after having episodes of coffee-ground emesis. The patient has had some sternotomy pain and chronic back pain, and so he was told to take Mobic twice a day. He started getting nauseous. After this, he started having coffee ground emesis. He underwent endoscopy examination by Dr. Frazier when he became clinically unstable and his abdomen became rock hard. He was emergently transferred to operating room where he underwent Exploratory laparotomy, Jay patch of a 1 cm duodenal ulcer with duodenal ulcer repair, placement of drain at the duodenum, feeding jejunostomy tube placement and abdominal washout by Drs. Varma and Shirley. Postprocedure he was transferred to intensive care unit where he was weaned off the mechanical ventilation and extubated following CPAP trial, however his respiration became more labored, patient became hypoxemic and respiratory distress requiring reintubation and continue mechanical ventilation. 09/03: He remains intubated and sedated. Currently he is on norepinephrine for BP support at 8 mcg/minute. FiO2 down to 45%. Sedation currently achieved with midazolam, propofol and fentanyl infusions. Urine output is low, T-max 99.3. No family present at bedside. Morning chest x-ray reviewed, ET tube in place, right subclavian central line, pulmonary vascular congestion, possible retrocardiac infiltrate. 09/04: Patient did well over the night. Norepinephrine is off. Current heart rate in the 70s. Propofol was stopped, and fentanyl and midazolam infusions. Patient becomes easily agitated with stimulation moving all extremities but that does not follow any commands. T-max of 98.8. I/O 2241/1550. 09/05: Remains sedated, orally intubated on mechanical ventilation. On J-tube feeds at 20 cc per hour. FiO2 70% PEEP increased to +10 09/06: Remains sedated, orally intubated on mechanical ventilation. FiO2 50%, PEEP +10. Being diuresed. Tolerating J-tube feeds which are being advanced. 09/07: Low-grade temperatures. White blood cell count slowly increasing. Sputum 09/06 no growth today. Blood cultures 2 and urine ordered for today. Tube feeds Jevity 1.5 at goal 50 cc an hour. No problem. 09/08: T-max 100.8. Currently afebrile. No bowel movement overnight. 50 cc from RAYMOND tube. Increasing NG tube output greenish. Continues to tolerate tube feeding. PEEP down to 5. 09/09: T-max 100.2. Currently 98.2. One bowel movement documented. RAYMOND -50 cc. Still with copious output from OG. CT abdomen/pelvis ordered by general surgery. 09/10: T-max 101. Currently 99.0 Fahrenheit.. Still with 750 cc Makenzie's 24 hour OG output. Positive BM. Requiring propofol and midazolam drips for sedation 09/11: T-max 99.2. Currently afebrile. 850 cc bilious gastric output. 550 cc stool. 25 cc from RAYMOND. Remains on midazolam at 10 mg an hour and propofol at 30 mg/kg/min for sedation. Limited opioid use secondary to ileus. Abdomen appears soft. Improved chest x-ray and abdominal x-ray this a.m. Subjective 09/12: T-max 99.4. Currently 99.2. 6 bowel movements. RAYMOND 5 cc. Minimal NG tube output. Abdomen much more benign Objective Vital Signs Date Time Temp Pulse Resp B/P (MAP) Pulse Ox O2 Delivery O2 Flow Rate FiO2 09/12/17 22:00 66 09/12/17 20:00 99.2 24 128/82 (97) 100 09/12/17 20:00 40 Intake and Output 09/12/17 09/12/17 09/13/17 08:00 16:00 00:00 Intake Total 982 ml 1572 ml Output Total 405 ml 2405 ml Balance 577 ml -833 ml Result Diagram: 09/12/17 0520 09/12/17 1800 Other Results Microbiology Date/Time Source Procedure Growth Status 09/08/17 04:00 Blood Peripheral Aerobic Blood Culture - Preliminary NO GROWTH IN 4 DAYS Resulted 09/08/17 04:00 Blood Peripheral Anaerobic Blood Culture - Preliminary NO GROWTH IN 4 DAYS Resulted 09/10/17 17:50 Stool Stool Stool Occult Blood (TARAN) - Final HEMOCCULT POSITIVE Complete 09/09/17 19:00 Sputum Endotracheal Gram Stain - Final Complete 09/09/17 19:00 Sputum Endotracheal Sputum Culture - Final RARE GROWTH NORMAL RESPIRATORY MAXIM Complete 09/07/17 16:20 Urine Catheterized Urine Urine Culture - Final NO GROWTH IN 48 HOURS. Complete Imaging Last Impressions Abdomen X-Ray 09/12/17599 Signed Impressions: Service Date/Time: Tuesday, September 12, 2017 05:09 - CONCLUSION: Decreased gaseous distention of bowel Juan Rivera MD Chest X-Ray 09/11/17599 Signed Impressions: Service Date/Time: Monday, September 11, 2017 04:51 - CONCLUSION: 1. Cardiomegaly. Mild edema pattern stable to slightly improved from September 10. No new infiltrate. No pneumothorax. Support apparatus unchanged. Joel Garcia MD Abdomen/Pelvis CT 09/09/17 0000 Signed Impressions: Service Date/Time: Saturday, September 09, 2017 16:36 - CONCLUSION: 1. New bilateral pleural effusions and consolidation in both posterior lung bases left greater than right with air bronchograms. 2. Abnormal bowel gas pattern most consistent with an ileus. 3. Bilateral percutaneous drainage catheters in place. 4. Cardiomegaly. Patient is status post median sternotomy. Armen Rodriguez MD Chest CT 09/01/17 0000 Signed Impressions: Service Date/Time: August 07:15 - CONCLUSION: No acute CT findings of the chest Juan Rivera MD Procedures None Objective Remarks General -41-year-old male currently orotracheally intubated HEENT - pupils are equal and reactive about 3 mm bilaterally, sclerae are anicteric, neck is supple, no rigidity, no JVD, no carotid bruit, orally intubated, + NGT in left nares CV -RRR. Metallic valve closure click Chest - scattered coarse breath sounds b/l, good air entry, no wheezes Abdomen - soft, non-distended, mildly tender, BS decreased, abdominal binder/ dressing over the surgical site -clean, J tube in place. RAYMOND tube right-sided 5 cc SS output overnight Skin -no skin breakdown noted Extremities - warm and well perfused, no edema, + peripheral pulses, no clubbing Neuro - intubated, sedated, moving all extremities Urinary Catheter: Yes Assessment to: Continue Donaldson insert reason: ICU Pt Getting Diuretics Vascular Central Line Catheter: Yes Assessment to: Continue Date of Insertion: Sep 02, 2017 Line: Central Venous Catheter Side: Right Location: Subclavian A/P Assessment and Plan Neuro/Psych: Depression Currently midazolam drip at 10 mg an hour for sedation while intubated. Dexmedetomidine drip at 1.2 mcg/kg/min and attempt to wean for extubation Goal of RASS -2 Daily sedation vacation Continue Aripiprazole 5 mg twice daily and duloxetine 30 mg daily/home medications for depression/anxiety As needed morphine sulfate 2-4 mg IV for pain CV: HOCM History of mechanical mitral valve replacement ([facility] bileaflet, for previous endocarditis 2000) History of hypertrophic cardiomyopathy, status post septal myomectomy 2069 History of AICD 2013 Hypertension 2D echocardiogram revealed ejection fraction 60% percent. Hypertrophic cardio myopathy. Clinical mitral valve. Moderate MR. Followed by cardiology/Dr. Cabrales Holding atenolol 50 mg twice daily due to hypotension. Resume beta-vannessa when clinically indicated/more hemodynamically stable Resp: Acute hypoxic respiratory failure Tobacco ACV 16/500/11/09 PSV trial daily Ventilator bundle Albuterol/ipratropium aerosols every 6 hours with albuterol aerosols every 2 hours as needed dyspnea Spontaneous breathing trials today with attempt extubation Nicotine patch 14 mg daily. When appropriate self-evaluation tobacco cessation booklet will be provided GI: Hypoalbuminemia Elevated AST Constipation Colonic ileus Jevity 1.5-50 cc an hour currently on hold. Restarted 20 cc 09/10 per surgery half-normal saline with KCl at 84 cc an hour Pantoprazole for GI prophylaxis Docusate sodium 100 mg twice daily, senna 8.6 mg twice daily and polyethylene glycol 17 g twice daily and lactulose 30 cc twice daily. Bowel regimen. Methylnaltrexone 12 mg subcu 1 now. Check KUB -colonic ileus 09/02/29. Add metoclopramide 5 mg every 8 hours, E- Mycin 200 mg every 8 hours. Recheck KUB in a.m. 09/[address] abdomen/pelvis 08/13 revealed copious amounts of stool. Air- filled colon. GI also following actively : Donaldson catheter has been placed for accurate I's and O's in a critically ill patient Endo: Sliding scale insulin if indicated to maintain euglycemia TSH 2.37 Renal: Acute kidney injury -resolved Creatinine currently downward trend. Likely secondary to ATN/sepsis. Slowly normalizing Recheck BMP in a.m. Heme: Acute blood loss anemia Normocytic anemia History of chronic warfarin use 2.5 mg daily Heme positive stools Heparin drip currently at 1700 units an hour Transfuse 5 RBCs and 4 FFP during this hospitalization Transfuse 1 unit PRBCs 09/11 ID: Severe sepsis Currently on continuous dosed piperacillin/tazobactam and fluconazole completed on 09/[address] Mohan/infectious Pertinent cultures 09/08 -blood cultures 2 -no growth 09/07 -urine culture -no growth 09/06 -sputum -no growth 09/03 -blood cultures 2 -no growth C. difficile -09/10 negative FEN: Hypokalemia Replace electrolytes as clinically indicated MSK: Holding meloxicam 7.5 mg daily light of acute GI bleed PT evaluate and treat Access -Right subclavian CVL placed 09/02 at present -Left radial arterial line 09/02 to 09/08 Prophylaxis -GI -pantoprazole -DVT -SCD/heparin drip Level 3 follow-up Miles Martinez MD Sep 12, 2017 23:59
[2017-09-13] VITALS (18 sets, daily range): BP systolic 118–138; BP diastolic 65–97; PULSE 60–112; RESP 16–22; TEMP 97.1–98.6; O2SAT 95–100
[2017-09-13] MEDS: HEPARIN-D5W 25,000 U/250 ML 250 ML IV PRN ×2 (01:24→14:12)
[2017-09-13] MEDS: MIDAZOLAM 100 MG/100 ML INJ 100 ML IV PRN (01:47)
[2017-09-13] MEDS: DEXMEDETOMIDINE INJ 1,000 MCG in SODIUM CHLOR 0.9% 250 ML INJ 240 ML IV PRN (03:31)
[2017-09-13] MEDS: 1/2 NS + KCL 20 MEQ INJ 1,000 ML IV SCH ×3 (03:57→22:00)
[2017-09-13 05:21] LABS: AUTOMATED NEUTROPHIL # 8.5 TH/MM3 (1.8-7.7); BASOPHIL # 0.2 TH/MM3 (0-0.2); BASOPHIL % 1.5 % (0.0-2.0); EOSINOPHIL # 0.3 TH/MM3 (0-0.4); HEMATOCRIT 23.5 % (39.0-51.0); HEMOGLOBIN 7.8 GM/DL (13.0-17.0); LYMPH % 14.6 % (9.0-44.0); LYMPHOCYTE # 1.7 TH/MM3 (1.0-4.8); MEAN CELL VOLUME 89.4 FL (80.0-100.0); MEAN CORPUSCULAR HEMOGLOBIN 29.8 PG (27.0-34.0); MEAN CORPUSCULAR HGB CONC 33.4 % (32.0-36.0); MEAN PLATELET VOLUME 7.8 FL (7.0-11.0); MONO % 5.1 % (0.0-8.0); MONOCYTE # 0.6 TH/MM3 (0-0.9); NEUT % 75.8 % (16.0-70.0); PLATELET COUNT 328 TH/MM3 (150-450); RED BLOOD COUNT 2.63 MIL/MM3 (4.50-5.90); WHITE BLOOD COUNT 11.3 TH/MM3 (4.0-11.0)
[2017-09-13] MEDS: ARTIFICIAL TEARS OPTH SOLN 15 ML BTL EACH EYE SCH ×3 (05:42→19:56)
[2017-09-13] MEDS: ERYTHROMYCIN ETHYLSUCCINATE 200 MG/5 ML SUSP 100 ML BOTTLE PO SCH ×3 (05:42→20:00)
[2017-09-13] MEDS: METOCLOPRAMIDE HCL 10 MG/2 ML VIAL IV PUSH SCH ×3 (05:43→19:59)
[2017-09-13 05:44] LABS: ALBUMIN 1.7 GM/DL (3.4-5.0); CALCIUM 7.9 MG/DL (8.5-10.1); CREATININE 0.75 MG/DL (0.60-1.30); DIRECT BILIRUBIN ADULT 0.1 MG/DL (0.0-0.2); MAGNESIUM 1.7 MG/DL (1.5-2.5); PHOSPHORUS 3.1 MG/DL (2.5-4.9)
[2017-09-13 05:47] LABS: INDIRECT BILIRUBIN 0.2 MG/DL (0.0-0.8); TOTAL BILIRUBIN ADULT 0.3 MG/DL (0.2-1.0); TOTAL PROTEIN 5.4 GM/DL (6.4-8.2)
--- NOTE | 2017-09-13 06:00 | RADRPT ---
EXAM DATE/TIME: 09/13/2017 05:03 [facility] COMPARISON: CHEST SINGLE AP, September 11, 2017, 4:51. INDICATIONS : Respiratory distress. MEDICAL HISTORY : Myocardial infarction. Congestive heart failure. Hypertension. SURGICAL HISTORY : Pacemaker. Mitral valve replacement. ENCOUNTER: Subsequent ACUITY: 1 week PAIN SCORE: Non-responsive. LOCATION: Bilateral chest FINDINGS: Pacemaker device is noted with control pack over the left chest. Presently in central line is stable in position with tip overlying the right atrium. Endotracheal tube and nasogastric tube are stable in good position. There is hazy bilateral perihilar and basilar parenchymal opacity. This is unchanged. Cardiac contours are stable. CONCLUSION: No significant change Juan Rivera MD on September 13, 2017 at 5:57 Board Certified Radiologist. This report was verified electronically.
--- NOTE | 2017-09-13 06:01 | RADRPT ---
EXAM DATE/TIME: 09/13/2017 05:08 [facility] COMPARISON: ABDOMEN KUB ONLY, September 12, 2017, 5:09. INDICATIONS : Abdominal distention, evaluate ileus. MEDICAL HISTORY : Myocardial infarction. Congestive heart failure. SURGICAL HISTORY : Pacemaker. mitral valve replaced ENCOUNTER: Subsequent ACUITY: 1 week PAIN SCORE: Non-responsive. LOCATION: all quadrants. FINDINGS: Nasogastric tube is stable in position. John drain overlies the right abdomen. The sidehole cathet er overlying the left lower quadrant. Midline skin mary noted. Minimal intestinal gas present. No suspicious calcifications. Regional skeleton appears intact. CONCLUSION: No significant change Juan Rivera MD on September 13, 2017 at 5:58 Board Certified Radiologist. This report was verified electronically.
[2017-09-13] MEDS: DULoxetine HCl DR 30 MG CAP PO SCH (08:05)
[2017-09-13] MEDS: ARIPiprazole 5 MG TAB PO SCH ×2 (08:05→19:55)
[2017-09-13] MEDS: LACTULOSE SYRUP 20 GM/30 ML CUP PO SCH ×2 (08:06→19:55)
[2017-09-13] MEDS: NICOTINE 14 MG/24 HR PATCH T-DERMAL SCH (08:06)
[2017-09-13] MEDS: FUROSEMIDE 20 MG/2 ML VIAL IV PUSH SCH (08:06)
[2017-09-13] MEDS: REMOVE OLD PATCH T-DERMAL SCH (08:06)
[2017-09-13] MEDS: DOCUSATE SODIUM 100 MG/10 ML UDC PO SCH ×2 (08:06→19:55)
[2017-09-13] MEDS: SODIUM CHLORIDE 0.9% FLUSH 10 ML FLUSH IV FLUSH SCH ×2 (08:06→19:53)
[2017-09-13] MEDS: PANTOPRAZOLE SODIUM 40 MG VIAL IV PUSH SCH ×2 (08:06→19:54)
[2017-09-13] MEDS: SENNOSIDES SYRUP 8.8 MG/5 ML CUP PO SCH ×2 (08:07→19:55)
[2017-09-13] MEDS: POLYETHYLENE GLYCOL 17 GM PKG PO SCH ×2 (08:07→19:54)
[2017-09-13] MEDS ORDERED: RESP: RACEPINEPHRINE 2.25% 0.5 ML NEB ONE (10:06)
--- NOTE | 2017-09-13 10:09 | HHI.PR ---
cc: Joel Watson MD Subjective Subjective Notes DAILY PROGRESS NOTE FOR SURGICAL ATTENDING, DR. JOEL WATSON Intubated; RN attempted to slowly wean sedation in preparation for extubation Objective Vitals/I&O Vital Signs Date Time Temp Pulse Resp B/P (MAP) Pulse Ox O2 Delivery O2 Flow Rate FiO2 09/13/17 09:15 40 09/13/17 09:13 98 09/13/17 06:00 60 09/13/17 04:00 97.5 16 120/74 (89) Labs Laboratory Tests Test 09/12/17 18:00 09/13/17 05:00 Potassium Level 3.3 3.7 White Blood Count 11.3 Red Blood Count 2.63 Hemoglobin 7.8 Hematocrit 23.5 Mean Corpuscular Volume 89.4 Mean Corpuscular Hemoglobin 29.8 Mean Corpuscular Hemoglobin Concent 33.4 Red Cell Distribution Width 18.0 Platelet Count 328 Mean Platelet Volume 7.8 Neutrophils (%) (Auto) 75.8 Lymphocytes (%) (Auto) 14.6 Monocytes (%) (Auto) 5.1 Eosinophils (%) (Auto) 3.0 Basophils (%) (Auto) 1.5 Neutrophils # (Auto) 8.5 Lymphocytes # (Auto) 1.7 Monocytes # (Auto) 0.6 Eosinophils # (Auto) 0.3 Basophils # (Auto) 0.2 CBC Comment DIFF FINAL Differential Comment Activated Partial Thromboplast Time 43.0 Blood Urea Nitrogen 15 Creatinine 0.75 Random Glucose 106 Total Protein 5.4 Albumin 1.7 Calcium Level 7.9 Phosphorus Level 3.1 Magnesium Level 1.7 Alkaline Phosphatase 74 Aspartate Amino Transf (AST/SGOT) 37 Alanine Aminotransferase (ALT/SGPT) 26 Total Bilirubin 0.3 Direct Bilirubin 0.1 Sodium Level 145 Chloride Level 112 Carbon Dioxide Level 27.0 Anion Gap 6 Estimat Glomerular Filtration Rate 116 Indirect Bilirubin 0.2 Date/Time Source Procedure Growth Status 09/08/17 04:00 Blood Peripheral Aerobic Blood Culture - Preliminary NO GROWTH IN 4 DAYS Resulted 09/08/17 04:00 Blood Peripheral Anaerobic Blood Culture - Preliminary NO GROWTH IN 4 DAYS Resulted 09/10/17 17:50 Stool Stool Stool Occult Blood (TARAN) - Final HEMOCCULT POSITIVE Complete 09/09/17 19:00 Sputum Endotracheal Gram Stain - Final Complete 09/09/17 19:00 Sputum Endotracheal Sputum Culture - Final RARE GROWTH NORMAL RESPIRATORY MAXIM Complete 09/07/17 16:20 Urine Catheterized Urine Urine Culture - Final NO GROWTH IN 48 HOURS. Complete Radiology Last Impressions Abdomen X-Ray 09/12/17 0600 Signed Impressions: Service Date/Time: Tuesday, September 12, 2017 05:09 - CONCLUSION: Decreased gaseous distention of bowel Juan Rivera MD Chest X-Ray 09/11/17 0600 Signed Impressions: Service Date/Time: Monday, September 11, 2017 04:51 - CONCLUSION: 1. Cardiomegaly. Mild edema pattern stable to slightly improved from September 10. No new infiltrate. No pneumothorax. Support apparatus unchanged. Joel Garcia MD Abdomen/Pelvis CT 09/09/17 0000 Signed Impressions: Service Date/Time: [place], September 09, 2017 16:36 - CONCLUSION: 1. New bilateral pleural effusions and consolidation in both posterior lung bases left greater than right with air bronchograms. 2. Abnormal bowel gas pattern most consistent with an ileus. 3. Bilateral percutaneous drainage catheters in place. 4. Cardiomegaly. Patient is status post median sternotomy. Armen Rodriguez MD Chest CT 09/01/17 0000 Signed Impressions: Service Date/Time: August 07:15 - CONCLUSION: No acute CT findings of the chest Juan Rivera MD Cardiovascular: Regular Lungs: Clear Abdomen: Other (Midline incision with mary; abdomen much softer today on exam; J tube; RAYMOND with serous fluid ) Extremities: Other (Mild BLE edema but improved from yesterday's exam ) Narrative Exam Donaldson in place with clear yellow urine A/P Problem List: (1) Status post exploratory laparotomy ICD Codes: Z98.890 - Other specified postprocedural states Status: Acute (2) Duodenal ulcer perforation ICD Codes: K26.5 - Chronic or unspecified duodenal ulcer with perforation Status: Chronic (3) Duodenal ulcer with perforation ICD Codes: K26.5 - Chronic or unspecified duodenal ulcer with perforation Status: Chronic (4) H/O hypertrophic cardiomyopathy ICD Codes: Z86.79 - Personal history of other diseases of the circulatory system Status: Chronic (5) Perforation of duodenal ulcer ICD Codes: K26.5 - Chronic or unspecified duodenal ulcer with perforation Status: Acute (6) Anemia ICD Codes: D64.9 - Anemia, unspecified Status: Acute (7) GI bleed ICD Codes: K92.2 - Gastrointestinal hemorrhage, unspecified Status: Acute (8) AICD (automatic cardioverter/defibrillator) present ICD Codes: Z95.810 - AICD (automatic cardioverter/defibrillator) present Status: Chronic (9) S/P MVR (mitral valve replacement) ICD Codes: Z95.4 - S/P MVR (mitral valve replacement) Status: Chronic Permanent Comment: Need prophyllaxis - Due to endocarditis Last Edited By: Ozzy Edwards on May 26, 2014 13:06 (10) H/O mitral valve replacement with mechanical valve ICD Codes: Z95.2 - Presence of prosthetic heart valve Status: Chronic (11) Malnutrition ICD Codes: E46 - Unspecified protein-calorie malnutrition Status: Chronic (12) Serum albumin decreased ICD Codes: E88.09 - Other disorders of plasma-protein metabolism, not elsewhere classified Status: Chronic (13) Chronic anticoagulation ICD Codes: Z79.01 - [facility] (current) use of anticoagulants Status: Chronic Assessment and Plan 41 year old male s/p ex lap; repair of duodenal ulcer, J tube placement -Attempted to wean sedation as tolerated for possible extubation today -Ileus appears resolved -Vent per CCM---possible extubation today -Continue routine RAYMOND care -Discussed with Dr. Martinez and LALITHA Shelley Attending Statement NOTE FOR SURGICAL ATTENDING, DR. JOEL WATSON I agree with above assessment and plan. The exam, history, and the medical decision-making described in the above note were completed with the assistance of the mid-level provider. I reviewed and agree with the findings presented. I attest that I had a [id number] encounter with the patient on the same day, and personally performed and documented my assessment and findings in the medical record. The following services were provided during this hospital visit: Chart data review, vital sign assessments/reviewing monitor data Review of consultations notes if present. Medication orders/review and/or management Ordering and/or reviewing lab tests Ordering and/or interpreting/reviewing x-rays and/or diagnostic studies Care of the patient and discussion of the patient with the care team Documentation time To help prompt me to consider important information that might be impacting today's encounter and assessment, information from prior notes written by myself or my colleagues may have been "brought forward/copy and pasted" into today's note. Problem Qualifiers (1) Anemia: Qualified Codes: D62 - Acute posthemorrhagic anemia (2) GI bleed: Qualified Codes: K26.4 - Chronic or unspecified duodenal ulcer with hemorrhage (3) Malnutrition: Ines Valentino/First Kamaljit RODRÍGUEZ Sep 13, 2017 10:09 Joel Watson MD Sep 13, 2017 10:20
[2017-09-13] MEDS: MORPHINE SULFATE 2 MG/ML SYRINGE IV PUSH PRN (13:20)
[2017-09-13] MEDS: MORPHINE SULFATE 4 MG/ML INJ IV PUSH PRN ×3 (16:26→21:33)
[2017-09-13] MEDS: clonazePAM 0.5 MG TAB PO PRN (20:55)
[2017-09-13] MEDS ORDERED: POTASSIUM CHLOR 20 MEQ PREMIX 100 ML IV ONE (21:00)
[2017-09-13] MEDS ORDERED: MORPHINE SULFATE 2 MG/ML SYRINGE IV PUSH PRN (21:00)
--- NOTE | 2017-09-13 21:04 | HHI.CCPN ---
Subjective Remarks/Hospital Course 09/02: 41-year-old male who presented to [facility] on 09/01/2017 after having episodes of coffee-ground emesis. The patient has had some sternotomy pain and chronic back pain, and so he was told to take Mobic twice a day. He started getting nauseous. After this, he started having coffee ground emesis. He underwent endoscopy examination by Dr. Frazier when he became clinically unstable and his abdomen became rock hard. He was emergently transferred to operating room where he underwent Exploratory laparotomy, Jay patch of a 1 cm duodenal ulcer with duodenal ulcer repair, placement of drain at the duodenum, feeding jejunostomy tube placement and abdominal washout by Drs. Varma and Shirley. Postprocedure he was transferred to intensive care unit where he was weaned off the mechanical ventilation and extubated following CPAP trial, however his respiration became more labored, patient became hypoxemic and respiratory distress requiring reintubation and continue mechanical ventilation. 09/03: He remains intubated and sedated. Currently he is on norepinephrine for BP support at 8 mcg/minute. FiO2 down to 45%. Sedation currently achieved with midazolam, propofol and fentanyl infusions. Urine output is low, T-max 99.3. No family present at bedside. Morning chest x-ray reviewed, ET tube in place, right subclavian central line, pulmonary vascular congestion, possible retrocardiac infiltrate. 09/04: Patient did well over the night. Norepinephrine is off. Current heart rate in the 70s. Propofol was stopped, and fentanyl and midazolam infusions. Patient becomes easily agitated with stimulation moving all extremities but that does not follow any commands. T-max of 98.8. I/O 2241/1550. 09/05: Remains sedated, orally intubated on mechanical ventilation. On J-tube feeds at 20 cc per hour. FiO2 70% PEEP increased to +10 09/06: Remains sedated, orally intubated on mechanical ventilation. FiO2 50%, PEEP +10. Being diuresed. Tolerating J-tube feeds which are being advanced. 09/07: Low-grade temperatures. White blood cell count slowly increasing. Sputum 09/06 no growth today. Blood cultures 2 and urine ordered for today. Tube feeds Jevity 1.5 at goal 50 cc an hour. No problem. 09/08: T-max 100.8. Currently afebrile. No bowel movement overnight. 50 cc from RAYMOND tube. Increasing NG tube output greenish. Continues to tolerate tube feeding. PEEP down to 5. 09/09: T-max 100.2. Currently 98.2. One bowel movement documented. RAYMOND -50 cc. Still with copious output from OG. CT abdomen/pelvis ordered by general surgery. 09/10: T-max 101. Currently 99.0 Fahrenheit.. Still with 750 cc Makenzie's 24 hour OG output. Positive BM. Requiring propofol and midazolam drips for sedation 09/11: T-max 99.2. Currently afebrile. 850 cc bilious gastric output. 550 cc stool. 25 cc from RAYMOND. Remains on midazolam at 10 mg an hour and propofol at 30 mg/kg/min for sedation. Limited opioid use secondary to ileus. Abdomen appears soft. Improved chest x-ray and abdominal x-ray this a.m. 09/12: T-max 99.4. Currently 99.2. 6 bowel movements. RAYMOND 5 cc. Minimal NG tube output. Abdomen much more benign Subjective 09/13: Extubated today at 10 AM without complication. Currently on room air. Cleared for clear liquid diet. RAYMOND with minimal output. Objective Vital Signs Date Time Temp Pulse Resp B/P (MAP) Pulse Ox O2 Delivery O2 Flow Rate FiO2 09/13/17 18:00 110 09/13/17 16:55 20 09/13/17 16:53 96 09/13/17 16:00 98.2 130/71 (90) 09/13/17 15:30 Room Air 09/13/17 14:00 2.00 09/13/17 09:15 40 Intake and Output 09/13/17 09/13/17 09/14/17 08:00 16:00 00:00 Intake Total 2214 ml Output Total 355 ml 1550 ml 1250 ml Balance 1859 ml -1550 ml -1250 ml Result Diagram: 09/13/17 0500 09/13/17 0500 Other Results Microbiology Date/Time Source Procedure Growth Status 09/08/17 04:00 Blood Peripheral Aerobic Blood Culture - Final NO GROWTH IN 5 DAYS Complete 09/08/17 04:00 Blood Peripheral Anaerobic Blood Culture - Final NO GROWTH IN 5 DAYS Complete 09/10/17 17:50 Stool Stool Stool Occult Blood (TARAN) - Final HEMOCCULT POSITIVE Complete 09/09/17 19:00 Sputum Endotracheal Gram Stain - Final Complete 09/09/17 19:00 Sputum Endotracheal Sputum Culture - Final RARE GROWTH NORMAL RESPIRATORY MAXIM Complete 09/07/17 16:20 Urine Catheterized Urine Urine Culture - Final NO GROWTH IN 48 HOURS. Complete Imaging Last Impressions Chest X-Ray 09/13/17 0600 Signed Impressions: Service Date/Time: Wednesday, September 13, 2017 05:03 - CONCLUSION: No significant change Juan Rivera MD Abdomen X-Ray 09/13/17 06 Signed Impressions: Service Date/Time: Wednesday, September 13, 2017 05:08 - CONCLUSION: No significant change Juan Rivera MD Abdomen/Pelvis CT 09/09/17 0000 Signed Impressions: Service Date/Time: Saturday, September 09, 2017 16:36 - CONCLUSION: 1. New bilateral pleural effusions and consolidation in both posterior lung bases left greater than right with air bronchograms. 2. Abnormal bowel gas pattern most consistent with an ileus. 3. Bilateral percutaneous drainage catheters in place. 4. Cardiomegaly. Patient is status post median sternotomy. Armen Rodriguez MD Chest CT 09/01/17 0000 Signed Impressions: Service Date/Time: August 07:15 - CONCLUSION: No acute CT findings of the chest Juan Rivera MD Procedures None Objective Remarks General -41-year-old male resting in bed in no acute distress HEENT - pupils are equal and reactive about 3 mm bilaterally, sclerae are anicteric, neck is supple, no rigidity, no JVD, CV -RRR. Metallic valve closure click Chest - scattered coarse breath sounds b/l, good air entry, no wheezes Abdomen - soft, non-distended, mildly tender, BS decreased, abdominal binder/ dressing over the surgical site -clean, J tube in place. RAYMOND tube right-sided 5 cc SS output overnight Skin -no skin breakdown noted Extremities - warm and well perfused, no edema, + peripheral pulses, no clubbing Neuro -cranial nerves II through XII grossly intact. Strength is equal symmetric. Normal sensation. Vascular Central Line Catheter: Yes Assessment to: Continue Date of Insertion: Sep 02, 2017 Line: Central Venous Catheter Side: Right Location: Subclavian A/P Assessment and Plan Neuro/Psych: Depression Continue Aripiprazole 5 mg twice daily and duloxetine 30 mg daily/home medications for depression/anxiety Continue clonazepam 0.5 mg p.o. every 8 hours as needed anxiety As needed morphine sulfate 2-4 mg IV every 2 hours as needed for pain Melatonin 5 mg at bedtime as needed insomnia CV: HOCM History of mechanical mitral valve replacement ([employer] [place] bileaflet, for previous endocarditis 2000) History of hypertrophic cardiomyopathy, status post septal myomectomy 2069 History of AICD 2013 Hypertension 2D echocardiogram revealed ejection fraction 60% percent. Hypertrophic cardio myopathy. Clinical mitral valve. Moderate MR. Followed by cardiology/Dr. Cabrales Holding atenolol 50 mg twice daily due to hypotension. Resume beta-vannessa when clinically indicated/more hemodynamically stable Currently on heparin drip for mechanical mitral valve. Restart warfarin when clinically indicated Resp: Acute hypoxic respiratory failure Tobacco Nasal cannula to maintain saturations greater than equal to 92% Incentive spirometry while awake Albuterol/ipratropium aerosols every 6 hours with albuterol aerosols every 2 hours as needed dyspnea Nicotine patch 14 mg daily. When appropriate self-evaluation tobacco cessation booklet will be provided GI: Hypoalbuminemia Elevated AST Constipation Colonic ileus Jevity 1.5-50 cc an hour currently on hold. Restarted 30 cc 09/10 per surgery Pantoprazole 40 mg IV twice daily for GI prophylaxis Docusate sodium 100 mg twice daily, senna 8.6 mg twice daily and polyethylene glycol 17 g twice daily and lactulose 30 cc twice daily. Bowel regimen. Methylnaltrexone 12 mg subcu 1 now. Check KUB -colonic ileus 09/02/29. Add metoclopramide 5 mg every 8 hours, E- Mycin 250 mg every 8 hours. Recheck KUB in a.m. 09/[address] abdomen/pelvis 09/10 revealed copious amounts of stool. Air- filled colon. GI also following actively : Donaldson catheter has been placed for accurate I's and O's in a critically ill patient Endo: Sliding scale insulin if indicated to maintain euglycemia TSH 2.37 Renal: Acute kidney injury -resolved Creatinine currently downward trend. Likely secondary to ATN/sepsis. Slowly normalizing Recheck BMP in a.m. Heme: Acute blood loss anemia Normocytic anemia Leukocytosis History of chronic warfarin use 2.5 mg daily Heme positive stools Heparin drip currently at 1700 units an hour Transfuse 5 RBCs and 4 FFP during this hospitalization Transfuse 1 unit PRBCs 09/11 ID: Severe sepsis Previously on continuous dosed piperacillin/tazobactam and fluconazole completed on 09/[address] Mohan/infectious Pertinent cultures 09/08 -blood cultures 2 -no growth 09/07 -urine culture -no growth 09/06 -sputum -no growth 09/03 -blood cultures 2 -no growth C. difficile -09/10 negative FEN: Replace electrolytes as clinically indicated One half normal saline with 20 mEq KCl at 30 cc an hour MSK: Holding meloxicam 7.5 mg daily light of acute GI bleed PT evaluate and treat Access -Right subclavian CVL placed 09/02 at present -Left radial arterial line 09/02 to 09/08 Prophylaxis -GI -pantoprazole -DVT -SCD/heparin drip Level 3 follow-up Miles Martinez MD Sep 13, 2017 21:04
[2017-09-13] MEDS: MELATONIN 5 MG TAB PO PRN (21:32)
[2017-09-13] MEDS: MAGNESIUM SULFATE 1 GM PREMIX 100 ML IV SCH ×2 (21:32→22:39)
[2017-09-13] MEDS: ONDANSETRON HCL 4 MG/2 ML VIAL IVP PRN (21:33)
[2017-09-14] VITALS (9 sets, daily range): BP systolic 116–143; BP diastolic 71–92; PULSE 90–106; RESP 17–25; TEMP 97.5–99.1; O2SAT 95–100
[2017-09-14] MEDS: MORPHINE SULFATE 4 MG/ML INJ IV PUSH PRN ×5 (00:14→09:33)
[2017-09-14] MEDS: HEPARIN-D5W 25,000 U/250 ML 250 ML IV PRN (02:48)
[2017-09-14 03:56] LABS: AUTOMATED NEUTROPHIL # 11.1 TH/MM3 (1.8-7.7); BASOPHIL # 0.3 TH/MM3 (0-0.2); BASOPHIL % 1.8 % (0.0-2.0); EOSINOPHIL # 0.2 TH/MM3 (0-0.4); EOSINOPHIL % 1.6 % (0.0-4.0); HEMATOCRIT 25.1 % (39.0-51.0); HEMOGLOBIN 8.4 GM/DL (13.0-17.0); LYMPH % 12.9 % (9.0-44.0); LYMPHOCYTE # 1.8 TH/MM3 (1.0-4.8); MEAN CELL VOLUME 88.6 FL (80.0-100.0); MEAN CORPUSCULAR HEMOGLOBIN 29.5 PG (27.0-34.0); MEAN CORPUSCULAR HGB CONC 33.3 % (32.0-36.0); MEAN PLATELET VOLUME 7.2 FL (7.0-11.0); MONO % 5.7 % (0.0-8.0); MONOCYTE # 0.8 TH/MM3 (0-0.9); PLATELET COUNT 497 TH/MM3 (150-450); RED BLOOD COUNT 2.84 MIL/MM3 (4.50-5.90); RED CELL DISTRIBUTION WIDTH 17.8 % (11.6-17.2); WHITE BLOOD COUNT 14.2 TH/MM3 (4.0-11.0)
[2017-09-14 04:21] LABS: ALBUMIN 2.1 GM/DL (3.4-5.0); ALT (GPT) 29 U/L (12-78); AST (GOT) 36 U/L (15-37); BICARBONATE 27.9 MEQ/L (21.0-32.0); BLOOD UREA NITROGEN 12 MG/DL (7-18); CALCIUM 8.1 MG/DL (8.5-10.1); CHLORIDE 108 MEQ/L (98-107); CREATININE 0.74 MG/DL (0.60-1.30); GLOMERULAR FILTRATION RATE 118 ML/MIN (>89); GLUCOSE,RANDOM 93 MG/DL (74-106); PHOSPHORUS 3.5 MG/DL (2.5-4.9); SODIUM (NA) 143 MEQ/L (136-145)
[2017-09-14 04:22] LABS: ALKALINE PHOSPHATASE 84 U/L (45-117); TOTAL BILIRUBIN ADULT 0.4 MG/DL (0.2-1.0)
[2017-09-14] MEDS: METOCLOPRAMIDE HCL 10 MG/2 ML VIAL IV PUSH SCH ×2 (04:41→16:06)
[2017-09-14] MEDS: ERYTHROMYCIN ETHYLSUCCINATE 200 MG/5 ML SUSP 100 ML BOTTLE PO SCH ×3 (04:41→21:36)
[2017-09-14] MEDS: ARTIFICIAL TEARS OPTH SOLN 15 ML BTL EACH EYE SCH ×3 (05:07→21:36)
[2017-09-14] MEDS: ICU - POTASSIUM CHLORIDE/AQUEOUS SOLN 40 MEQ/100 ML IVPB IV PRN (05:32)
[2017-09-14] MEDS: DOCUSATE SODIUM 100 MG/10 ML UDC PO SCH ×2 (09:00→21:35)
[2017-09-14] MEDS: POLYETHYLENE GLYCOL 17 GM PKG PO SCH ×2 (09:00→21:35)
[2017-09-14] MEDS: SENNOSIDES SYRUP 8.8 MG/5 ML CUP PO SCH ×2 (09:00→21:37)
[2017-09-14] MEDS: REMOVE OLD PATCH T-DERMAL SCH (09:00)
[2017-09-14] MEDS ORDERED: NALOXONE HCL 0.4 MG/ML AMP IV PUSH PRN (10:00)
[2017-09-14] MEDS: MORPHINE SULFATE 30 MG/30 ML PCA IV SCH ×2 (11:14→21:54)
[2017-09-14] MEDS: DULoxetine HCl DR 30 MG CAP PO SCH (11:45)
[2017-09-14] MEDS: LACTULOSE SYRUP 20 GM/30 ML CUP PO SCH ×2 (11:46→21:35)
[2017-09-14] MEDS: ARIPiprazole 5 MG TAB PO SCH ×2 (11:46→21:35)
[2017-09-14] MEDS: SODIUM CHLORIDE 0.9% FLUSH 10 ML FLUSH IV FLUSH SCH ×2 (11:46→21:35)
[2017-09-14] MEDS: PANTOPRAZOLE SODIUM 40 MG VIAL IV PUSH SCH ×2 (11:46→21:35)
[2017-09-14] MEDS: NICOTINE 14 MG/24 HR PATCH T-DERMAL SCH (11:51)
[2017-09-14] MEDS: 1/2 NS + KCL 20 MEQ INJ 1,000 ML IV SCH (12:41)
--- NOTE | 2017-09-14 13:02 | HHI.PR ---
cc: Joel Watson MD Subjective Subjective Notes DAILY PROGRESS NOTE FOR SURGICAL ATTENDING, DR. JOEL WATSON Extubated now Painful Objective Vitals/I&O Vital Signs Date Time Temp Pulse Resp B/P (MAP) Pulse Ox O2 Delivery O2 Flow Rate FiO2 09/14/17 11:47 16 09/14/17 07:00 96 Room Air 09/14/17 06:00 96 09/14/17 04:00 98.7 122/81 (95) 09/13/17 22:00 2.00 09/13/17 21:41 21 Labs Laboratory Tests Test 09/14/17 03:50 White Blood Count 14.2 Red Blood Count 2.84 Hemoglobin 8.4 Hematocrit 25.1 Mean Corpuscular Volume 88.6 Mean Corpuscular Hemoglobin 29.5 Mean Corpuscular Hemoglobin Concent 33.3 Red Cell Distribution Width 17.8 Platelet Count 497 Mean Platelet Volume 7.2 Neutrophils (%) (Auto) 78.0 Lymphocytes (%) (Auto) 12.9 Monocytes (%) (Auto) 5.7 Eosinophils (%) (Auto) 1.6 Basophils (%) (Auto) 1.8 Neutrophils # (Auto) 11.1 Lymphocytes # (Auto) 1.8 Monocytes # (Auto) 0.8 Eosinophils # (Auto) 0.2 Basophils # (Auto) 0.3 CBC Comment DIFF FINAL Differential Comment Activated Partial Thromboplast Time 42.0 Blood Urea Nitrogen 12 Creatinine 0.74 Random Glucose 93 Total Protein 6.0 Albumin 2.1 Calcium Level 8.1 Phosphorus Level 3.5 Magnesium Level 2.0 Alkaline Phosphatase 84 Aspartate Amino Transf (AST/SGOT) 36 Alanine Aminotransferase (ALT/SGPT) 29 Total Bilirubin 0.4 Sodium Level 143 Potassium Level 3.3 Chloride Level 108 Carbon Dioxide Level 27.9 Anion Gap 7 Estimat Glomerular Filtration Rate 118 Date/Time Source Procedure Growth Status 09/08/17 04:00 Blood Peripheral Aerobic Blood Culture - Final NO GROWTH IN 5 DAYS Complete 09/08/17 04:00 Blood Peripheral Anaerobic Blood Culture - Final NO GROWTH IN 5 DAYS Complete 09/10/17 17:50 Stool Stool Stool Occult Blood (TARAN) - Final HEMOCCULT POSITIVE Complete 09/09/17 19:00 Sputum Endotracheal Gram Stain - Final Complete 09/09/17 19:00 Sputum Endotracheal Sputum Culture - Final RARE GROWTH NORMAL RESPIRATORY MAXIM Complete 09/07/17 16:20 Urine Catheterized Urine Urine Culture - Final NO GROWTH IN 48 HOURS. Complete Radiology Last Impressions Chest X-Ray 09/13/17 06 Signed Impressions: Service Date/Time: Wednesday, September 13, 2017 05:03 - CONCLUSION: No significant change Juan Rivera MD Abdomen X-Ray 09/13/17 06 Signed Impressions: Service Date/Time: Wednesday, September 13, 2017 05:08 - CONCLUSION: No significant change Juan Rivera MD Abdomen/Pelvis CT 09/09/17 0000 Signed Impressions: Service Date/Time: Saturday, September 09, 2017 16:36 - CONCLUSION: 1. New bilateral pleural effusions and consolidation in both posterior lung bases left greater than right with air bronchograms. 2. Abnormal bowel gas pattern most consistent with an ileus. 3. Bilateral percutaneous drainage catheters in place. 4. Cardiomegaly. Patient is status post median sternotomy. Armen Rodriguez MD Chest CT 09/01/17 0000 Signed Impressions: Service Date/Time: , September 01, 2017 07:15 - CONCLUSION: No acute CT findings of the chest Juan Rivera MD Cardiovascular: Regular Lungs: Clear, Other Abdomen: Other (Midline incision with mary in place; RAYMOND with serous fluid; J tube with distal hole outside of the body---leaking tube feeding ) Extremities: No edema Narrative Exam Donaldson in place with clear yellow urine A/P Problem List: (1) Status post exploratory laparotomy ICD Codes: Z98.890 - Other specified postprocedural states Status: Acute (2) Duodenal ulcer perforation ICD Codes: K26.5 - Chronic or unspecified duodenal ulcer with perforation Status: Chronic (3) Duodenal ulcer with perforation ICD Codes: K26.5 - Chronic or unspecified duodenal ulcer with perforation Status: Chronic (4) H/O hypertrophic cardiomyopathy ICD Codes: Z86.79 - Personal history of other diseases of the circulatory system Status: Chronic (5) Perforation of duodenal ulcer ICD Codes: K26.5 - Chronic or unspecified duodenal ulcer with perforation Status: Acute (6) Anemia ICD Codes: D64.9 - Anemia, unspecified Status: Acute (7) GI bleed ICD Codes: K92.2 - Gastrointestinal hemorrhage, unspecified Status: Acute (8) AICD (automatic cardioverter/defibrillator) present ICD Codes: Z95.810 - AICD (automatic cardioverter/defibrillator) present Status: Chronic (9) S/P MVR (mitral valve replacement) ICD Codes: Z95.4 - S/P MVR (mitral valve replacement) Status: Chronic Permanent Comment: Need prophyllaxis - Due to endocarditis Last Edited By: Ozzy Edwards on May 26, 2014 13:06 (10) H/O mitral valve replacement with mechanical valve ICD Codes: Z95.2 - Presence of prosthetic heart valve Status: Chronic (11) Malnutrition ICD Codes: E46 - Unspecified protein-calorie malnutrition Status: Chronic (12) Serum albumin decreased ICD Codes: E88.09 - Other disorders of plasma-protein metabolism, not elsewhere classified Status: Chronic (13) Chronic anticoagulation ICD Codes: Z79.01 - terminal superintendent (current) use of anticoagulants Status: Chronic Assessment and Plan 41 year old male s/p ex lap; repair of duodenal ulcer, J tube placement -Extubated; stable on NC -Malpositioned J tube--- hold TF; IR consult for replacement -Added Morphine PATTERNMAKER METAL -Continue routine RAYMOND care -Clear liquids -Continue monitoring in ISC -Discussed with LALITHA Hendrix Attending Statement NOTE FOR SURGICAL ATTENDING, DR. JOEL WATSON Feeding tube back in place Up in bed feeling good at bedside Would like some more to eat and drink Pain under control I agree with above assessment and plan. The exam, history, and the medical decision-making described in the above note were completed with the assistance of the mid-level provider. I reviewed and agree with the findings presented. I attest that I had a [id number] encounter with the patient on the same day, and personally performed and documented my assessment and findings in the medical record. The following services were provided during this hospital visit: Chart data review, vital sign assessments/reviewing monitor data Review of consultations notes if present. Medication orders/review and/or management Ordering and/or reviewing lab tests Ordering and/or interpreting/reviewing x-rays and/or diagnostic studies Care of the patient and discussion of the patient with the care team Documentation time To help prompt me to consider important information that might be impacting today's encounter and assessment, information from prior notes written by myself or my colleagues may have been "brought forward/copy and pasted" into today's note. Problem Qualifiers (1) Anemia: Qualified Codes: D62 - Acute posthemorrhagic anemia (2) GI bleed: Qualified Codes: K26.4 - Chronic or unspecified duodenal ulcer with hemorrhage (3) Malnutrition: Ines Valentino/First Kamaljit RODRÍGUEZ Sep 14, 2017 13:02 Joel Watson MD Sep 14, 2017 16:52
[2017-09-14] MEDS: ONDANSETRON HCL 4 MG/2 ML VIAL IVP PRN ×2 (13:10→22:08)
--- NOTE | 2017-09-14 14:28 | PD.RAD ---
Post Procedure Progress Note Pre Procedure Diagnosis: (1) Jejunostomy tube fell out Post Procedure Diagnosis: (1) Jejunostomy tube fell out Procedure Date: Sep 14, 2017 Supervising Radiologist: Albert Lozada Estimated blood loss: none Anesthesia: Local, Conscious Sedation Plan of Activity Patient to Unit: Nursing Unit Patient Condition: Poor Additional Comments: New J tube placed through the existing tract. New tube verified in position OK for use. Full report to follow See PACS Report for procedural detail/treatment Albert Lozada MD Sep 14, 2017 14:28
[2017-09-14] MEDS ORDERED: IOHEXOL 350 MG/ML 50 ML BTL (for RAD DIAG) J-TUBE ONE (14:42)
[2017-09-14] MEDS: PCA - TOTAL MG MORPHINE DELIVERED PER SHIFT SCH ×2 (16:06→21:36)
--- NOTE | 2017-09-14 16:52 | RADRPT ---
EXAM DATE/TIME: 09/14/2017 13:49 [facility] COMPARISON: No previous studies available for comparison. INDICATIONS : Patient presents with disloged jejunal feeding tube in need of new tube placement. MEDICAL HISTORY : HOCM Endocarditis Osteoarthritis Anxiety Depression CHF Myocardial infarction SURGICAL HISTORY : Mitral valve mechanical replacement due to endocarditis Septomyectomy AICD AICD placement with generator charge ENCOUNTER: Initial ACUITY: 2 weeks PAIN SCORE: 0/10 LOCATION: N/A FLUORO TIME: 7.5 minutes IMAGE SERIES: 5 SEDATION TIME: 30 minutes CONTRAST: 20 cc MEDICATION(S): 1.) 6 mg midazolam (Versed) IV 2.) 200 mcg Fentanyl (Sublimaze) IV DEVICE(S): 1.) 20 [place] Jejunal tube PROCEDURE : 1. Fluoroscopically guided tube exchange. 2. Conscious sedation with continuous EKG and oximetry monitoring. The risks, benefits and alternatives to the procedure were explained and verbal and written consent w as obtained. The site was prepped in sterile fashion. Full sterile technique was used, including ca p, mask, sterile gloves and gown and a large sterile sheet. Hand hygiene and 2% chlorhexidine and/or betadine/alcohol prep was utilized per protocol for cutaneous antisepsis. With fluoroscopic guidance the previously placed tube was exchanged for the prescribed catheter. Pos t procedure image demonstrates satisfactory position of the tube. The catheter was sutured in place and a Percu-Stay was applied. Conscious sedation was performed with the prescribed dosages and duration as above in the presence of an independent trained radiology nurse to assist in the monitoring of the patient. EKG and oximetry remained stable throughout the procedure. The patient tolerated the procedure well and there were no complications. The patient was sent to post anesthesia recovery in stable condition. CONCLUSION: Uncomplicated tube exchange as above. Albert Lozada MD on September 14, 2017 at 16:50 Board Certified Radiologist. This report was verified electronically.
--- NOTE | 2017-09-14 19:14 | HHI.CCPN ---
Subjective Remarks/Hospital Course 09/02: 41-year-old male who presented to [facility] on 09/01/2017 after having episodes of coffee-ground emesis. The patient has had some sternotomy pain and chronic back pain, and so he was told to take Mobic twice a day. He started getting nauseous. After this, he started having coffee ground emesis. He underwent endoscopy examination by Dr. Frazier when he became clinically unstable and his abdomen became rock hard. He was emergently transferred to operating room where he underwent Exploratory laparotomy, Jay patch of a 1 cm duodenal ulcer with duodenal ulcer repair, placement of drain at the duodenum, feeding jejunostomy tube placement and abdominal washout by Drs. Varma and Shirley. Postprocedure he was transferred to intensive care unit where he was weaned off the mechanical ventilation and extubated following CPAP trial, however his respiration became more labored, patient became hypoxemic and respiratory distress requiring reintubation and continue mechanical ventilation. 09/03: He remains intubated and sedated. Currently he is on norepinephrine for BP support at 8 mcg/minute. FiO2 down to 45%. Sedation currently achieved with midazolam, propofol and fentanyl infusions. Urine output is low, T-max 99.3. No family present at bedside. Morning chest x-ray reviewed, ET tube in place, right subclavian central line, pulmonary vascular congestion, possible retrocardiac infiltrate. 09/04: Patient did well over the night. Norepinephrine is off. Current heart rate in the 70s. Propofol was stopped, and fentanyl and midazolam infusions. Patient becomes easily agitated with stimulation moving all extremities but that does not follow any commands. T-max of 98.8. I/O 2241/1550. 09/05: Remains sedated, orally intubated on mechanical ventilation. On J-tube feeds at 20 cc per hour. FiO2 70% PEEP increased to +10 09/06: Remains sedated, orally intubated on mechanical ventilation. FiO2 50%, PEEP +10. Being diuresed. Tolerating J-tube feeds which are being advanced. 09/07: Low-grade temperatures. White blood cell count slowly increasing. Sputum 09/06 no growth today. Blood cultures 2 and urine ordered for today. Tube feeds Jevity 1.5 at goal 50 cc an hour. No problem. 09/08: T-max 100.8. Currently afebrile. No bowel movement overnight. 50 cc from RAYMOND tube. Increasing NG tube output greenish. Continues to tolerate tube feeding. PEEP down to 5. 09/09: T-max 100.2. Currently 98.2. One bowel movement documented. RAYMOND -50 cc. Still with copious output from OG. CT abdomen/pelvis ordered by general surgery. 09/10: T-max 101. Currently 99.0 Fahrenheit.. Still with 750 cc Makenzie's 24 hour OG output. Positive BM. Requiring propofol and midazolam drips for sedation 09/11: T-max 99.2. Currently afebrile. 850 cc bilious gastric output. 550 cc stool. 25 cc from RAYMOND. Remains on midazolam at 10 mg an hour and propofol at 30 mg/kg/min for sedation. Limited opioid use secondary to ileus. Abdomen appears soft. Improved chest x-ray and abdominal x-ray this a.m. 09/12: T-max 99.4. Currently 99.2. 6 bowel movements. RAYMOND 5 cc. Minimal NG tube output. Abdomen much more benign Subjective 09/13: Extubated today at 10 AM without complication. Currently on room air. Cleared for clear liquid diet. RAYMOND with minimal output. 09/14; remains on room air. denies complaints. tolerating diet. at the request of the surgery team, will keep in ICU one additional day for close monitoring. Objective Vital Signs Date Time Temp Pulse Resp B/P (MAP) Pulse Ox O2 Delivery O2 Flow Rate FiO2 09/14/17 16:06 16 09/14/17 16:00 98.2 95 129/92 (104) 97 09/14/17 07:00 Room Air 09/13/17 22:00 2.00 09/13/17 21:41 21 Intake and Output 09/14/17 09/14/17 09/15/17 08:00 16:00 00:00 Intake Total 912 ml 638 ml 294 ml Output Total 610 ml 605 ml Balance 302 ml 638 ml -311 ml Result Diagram: 09/14/17 0350 09/14/17 0350 Imaging Last Impressions Chest X-Ray 09/13/17 0600 Signed Impressions: Service Date/Time: Wednesday, September 13, 2017 05:03 - CONCLUSION: No significant change Juan Rivera MD Abdomen X-Ray 09/13/17 0600 Signed Impressions: Service Date/Time: Wednesday, September 13, 2017 05:08 - CONCLUSION: No significant change Juan Rivera MD Abdomen/Pelvis CT 09/09/17 0000 Signed Impressions: Service Date/Time: Saturday, September 09, 2017 16:36 - CONCLUSION: 1. New bilateral pleural effusions and consolidation in both posterior lung bases left greater than right with air bronchograms. 2. Abnormal bowel gas pattern most consistent with an ileus. 3. Bilateral percutaneous drainage catheters in place. 4. Cardiomegaly. Patient is status post median sternotomy. Armen Rodriguez MD Chest CT 09/01/17 0000 Signed Impressions: Service Date/Time: August 07:15 - CONCLUSION: No acute CT findings of the chest Juan Rivera MD Procedures None Objective Remarks General -41-year-old male resting in bed in no acute distress HEENT - pupils are equal and reactive about 3 mm bilaterally, sclerae are anicteric, neck is supple, no rigidity, no JVD, CV -RRR. Chest - equal chest rise, unlabored. room air. Abdomen - soft, non-distended, mildly tender, abdominal binder/dressing over the surgical site -clean, J tube in place. Extremities - warm and well perfused, no edema, + peripheral pulses, no clubbing Neuro -nonfocal. follows commands. RASS 0. Date of Insertion: Sep 02, 2017 Line: Central Venous Catheter Side: Right Location: Subclavian A/P Assessment and Plan Neuro/Psych: Depression Continue Aripiprazole 5 mg twice daily and duloxetine 30 mg daily/home medications for depression/anxiety Continue clonazepam 0.5 mg p.o. every 8 hours as needed anxiety As needed morphine sulfate 2-4 mg IV every 2 hours as needed for pain Melatonin 5 mg at bedtime as needed insomnia CV: HOCM History of mechanical mitral valve replacement ([facility] bileaflet, for previous endocarditis 2000) History of hypertrophic cardiomyopathy, status post septal myomectomy 2069 History of AICD 2013 Hypertension 2D echocardiogram revealed ejection fraction 60% percent. Hypertrophic cardio myopathy. Clinical mitral valve. Moderate MR. Followed by cardiology/Dr. Cabrales Holding atenolol 50 mg twice daily due to hypotension. Resume beta-vannessa when clinically indicated/more hemodynamically stable Currently on heparin drip for mechanical mitral valve. Restart warfarin when clinically indicated Resp: Acute hypoxic respiratory failure Tobacco Nasal cannula to maintain saturations greater than equal to 92% Incentive spirometry while awake Albuterol/ipratropium aerosols every 6 hours with albuterol aerosols every 2 hours as needed dyspnea Nicotine patch 14 mg daily. When appropriate self-evaluation tobacco cessation booklet will be provided GI: Hypoalbuminemia Elevated AST Constipation Colonic ileus Jevity 1.5-50 cc an hour currently on hold. Restarted 30 cc 09/10 per surgery Pantoprazole 40 mg IV twice daily for GI prophylaxis Docusate sodium 100 mg twice daily, senna 8.6 mg twice daily and polyethylene glycol 17 g twice daily and lactulose 30 cc twice daily. Bowel regimen. Methylnaltrexone 12 mg subcu 1 now. Check KUB -colonic ileus 09/02/29. Add metoclopramide 5 mg every 8 hours, E- Mycin 250 mg every 8 hours. Recheck KUB in a.m. 09/[address] abdomen/pelvis 09/10 revealed copious amounts of stool. Air- filled colon. GI also following actively : d/c pineda. Endo: Sliding scale insulin if indicated to maintain euglycemia TSH 2.37 Renal: Acute kidney injury -resolved Creatinine currently downward trend. Likely secondary to ATN/sepsis. Slowly normalizing Recheck BMP in a.m. Heme: Acute blood loss anemia Normocytic anemia Leukocytosis History of chronic warfarin use 2.5 mg daily Heme positive stools Heparin drip currently at 1700 units an hour Transfuse 5 RBCs and 4 FFP during this hospitalization Transfuse 1 unit PRBCs 09/11 ID: Severe sepsis Previously on continuous dosed piperacillin/tazobactam and fluconazole completed on 09/[address] Mohan/infectious Pertinent cultures 09/08 -blood cultures 2 -no growth 09/07 -urine culture -no growth 09/06 -sputum -no growth 09/03 -blood cultures 2 -no growth C. difficile -09/10 negative FEN: Replace electrolytes as clinically indicated One half normal saline with 20 mEq KCl at 30 cc an hour MSK: Holding meloxicam 7.5 mg daily light of acute GI bleed PT evaluate and treat Access -Right subclavian CVL placed 09/02 at present -Left radial arterial line 09/02 to 09/08 Prophylaxis -GI -pantoprazole -DVT -SCD/heparin drip will consult hospitalists to assume care. can likely transfer out of ICU tomorrow. Melvin Funes MD Sep 14, 2017 19:14
[2017-09-14] MEDS ORDERED: TRIMETHOBENZAMIDE INJ 200 MG/2 ML VIAL IM PRN (23:00)
[2017-09-15] VITALS (11 sets, daily range): BP systolic 133–155; BP diastolic 79–91; PULSE 90–123; RESP 18–24; TEMP 97.6–99.2; O2SAT 20–97
[2017-09-15] MEDS: clonazePAM 0.5 MG TAB PO PRN ×2 (02:40→19:58)
[2017-09-15] MEDS: MELATONIN 5 MG TAB PO PRN (02:40)
[2017-09-15 04:39] LABS: HEMATOCRIT 27.5 % (39.0-51.0); HEMOGLOBIN 9.1 GM/DL (13.0-17.0); MEAN CELL VOLUME 89.6 FL (80.0-100.0); MEAN CORPUSCULAR HEMOGLOBIN 29.8 PG (27.0-34.0); MEAN CORPUSCULAR HGB CONC 33.2 % (32.0-36.0); MEAN PLATELET VOLUME 7.4 FL (7.0-11.0); PLATELET COUNT 585 TH/MM3 (150-450); RED BLOOD COUNT 3.07 MIL/MM3 (4.50-5.90); RED CELL DISTRIBUTION WIDTH 18.4 % (11.6-17.2); WHITE BLOOD COUNT 18.7 TH/MM3 (4.0-11.0)
[2017-09-15 05:12] LABS: CALCIUM 8.2 MG/DL (8.5-10.1); CREATININE 0.71 MG/DL (0.60-1.30)
[2017-09-15] MEDS: ARTIFICIAL TEARS OPTH SOLN 15 ML BTL EACH EYE SCH ×3 (05:39→21:59)
[2017-09-15] MEDS: ERYTHROMYCIN ETHYLSUCCINATE 200 MG/5 ML SUSP 100 ML BOTTLE PO SCH ×3 (05:39→21:59)
[2017-09-15] MEDS: MORPHINE SULFATE 30 MG/30 ML PCA IV SCH (05:49)
[2017-09-15] MEDS: PCA - TOTAL MG MORPHINE DELIVERED PER SHIFT SCH ×3 (05:52→22:00)
[2017-09-15] MEDS: HEPARIN-D5W 25,000 U/250 ML 250 ML IV PRN ×2 (07:47→21:03)
[2017-09-15] MEDS: LACTULOSE SYRUP 20 GM/30 ML CUP PO SCH ×2 (09:00→20:03)
[2017-09-15] MEDS: SENNOSIDES SYRUP 8.8 MG/5 ML CUP PO SCH ×2 (09:00→20:03)
[2017-09-15] MEDS: POLYETHYLENE GLYCOL 17 GM PKG PO SCH ×2 (09:00→20:03)
[2017-09-15] MEDS: REMOVE OLD PATCH T-DERMAL SCH (09:00)
[2017-09-15] MEDS: DOCUSATE SODIUM 100 MG/10 ML UDC PO SCH ×2 (09:00→19:58)
[2017-09-15] MEDS: PANTOPRAZOLE SODIUM 40 MG VIAL IV PUSH SCH ×2 (10:56→19:58)
[2017-09-15] MEDS: SODIUM CHLORIDE 0.9% FLUSH 10 ML FLUSH IV FLUSH SCH ×2 (10:57→19:58)
[2017-09-15] MEDS: DULoxetine HCl DR 30 MG CAP PO SCH (10:57)
[2017-09-15] MEDS: NICOTINE 14 MG/24 HR PATCH T-DERMAL SCH (10:58)
[2017-09-15] MEDS: ARIPiprazole 5 MG TAB PO SCH ×2 (12:09→19:58)
--- NOTE | 2017-09-15 14:28 | HHI.PR ---
cc: oJel Watson MD Subjective Subjective Notes DAILY PROGRESS NOTE FOR SURGICAL ATTENDING, DR. JOEL WATSON Resting in bed Just got back to bed from chair No complaints except some mild nausea Objective Vitals/I&O Vital Signs Date Time Temp Pulse Resp B/P (MAP) Pulse Ox O2 Delivery O2 Flow Rate FiO2 09/15/17 08:00 99.1 110 20 155/90 (111) 95 09/15/17 03:20 Nasal Cannula 2.00 09/13/17 21:41 21 Labs Laboratory Tests Test 09/15/17 04:15 White Blood Count 18.7 Red Blood Count 3.07 Hemoglobin 9.1 Hematocrit 27.5 Mean Corpuscular Volume 89.6 Mean Corpuscular Hemoglobin 29.8 Mean Corpuscular Hemoglobin Concent 33.2 Red Cell Distribution Width 18.4 Platelet Count 585 Mean Platelet Volume 7.4 Activated Partial Thromboplast Time 33.5 Blood Urea Nitrogen 11 Creatinine 0.71 Random Glucose 130 Calcium Level 8.2 Sodium Level 138 Potassium Level 3.5 Chloride Level 103 Carbon Dioxide Level 24.0 Anion Gap 11 Estimat Glomerular Filtration Rate 124 Date/Time Source Procedure Growth Status 09/08/17 04:00 Blood Peripheral Aerobic Blood Culture - Final NO GROWTH IN 5 DAYS Complete 09/08/17 04:00 Blood Peripheral Anaerobic Blood Culture - Final NO GROWTH IN 5 DAYS Complete 09/10/17 17:50 Stool Stool Stool Occult Blood (TARAN) - Final HEMOCCULT POSITIVE Complete 09/09/17 19:00 Sputum Endotracheal Gram Stain - Final Complete 09/09/17 19:00 Sputum Endotracheal Sputum Culture - Final RARE GROWTH NORMAL RESPIRATORY MAXIM Complete 09/07/17 16:20 Urine Catheterized Urine Urine Culture - Final NO GROWTH IN 48 HOURS. Complete Radiology Last Impressions Chest X-Ray 09/13/17 0600 Signed Impressions: Service Date/Time: Wednesday, September 13, 2017 05:03 - CONCLUSION: No significant change Juan Rivera MD Abdomen X-Ray 09/13/17 0600 Signed Impressions: Service Date/Time: Wednesday, September 13, 2017 05:08 - CONCLUSION: No significant change Juan Rivera MD Abdomen/Pelvis CT 09/09/17 0000 Signed Impressions: Service Date/Time: Saturday, September 09, 2017 16:36 - CONCLUSION: 1. New bilateral pleural effusions and consolidation in both posterior lung bases left greater than right with air bronchograms. 2. Abnormal bowel gas pattern most consistent with an ileus. 3. Bilateral percutaneous drainage catheters in place. 4. Cardiomegaly. Patient is status post median sternotomy. Armen Rodriguez MD Chest CT 09/01/17 0000 Signed Impressions: Service Date/Time: August 07:15 - CONCLUSION: No acute CT findings of the chest Juan Rivera MD Cardiovascular: Regular Lungs: Clear Abdomen: Other (midline incision with midline incision; J tube with TF infusing ; RAYMOND with serous fluid ) Extremities: No edema Narrative Exam Donaldson in place with dark yellow urine A/P Problem List: (1) Status post exploratory laparotomy ICD Codes: Z98.890 - Other specified postprocedural states Status: Acute (2) Duodenal ulcer perforation ICD Codes: K26.5 - Chronic or unspecified duodenal ulcer with perforation Status: Chronic (3) Duodenal ulcer with perforation ICD Codes: K26.5 - Chronic or unspecified duodenal ulcer with perforation Status: Chronic (4) H/O hypertrophic cardiomyopathy ICD Codes: Z86.79 - Personal history of other diseases of the circulatory system Status: Chronic (5) Perforation of duodenal ulcer ICD Codes: K26.5 - Chronic or unspecified duodenal ulcer with perforation Status: Acute (6) Anemia ICD Codes: D64.9 - Anemia, unspecified Status: Acute (7) GI bleed ICD Codes: K92.2 - Gastrointestinal hemorrhage, unspecified Status: Acute (8) AICD (automatic cardioverter/defibrillator) present ICD Codes: Z95.810 - AICD (automatic cardioverter/defibrillator) present Status: Chronic (9) S/P MVR (mitral valve replacement) ICD Codes: Z95.4 - S/P MVR (mitral valve replacement) Status: Chronic Permanent Comment: Need prophyllaxis - Due to endocarditis Last Edited By: Ozzy Edwards on May 26, 2014 13:06 (10) H/O mitral valve replacement with mechanical valve ICD Codes: Z95.2 - Presence of prosthetic heart valve Status: Chronic (11) Malnutrition ICD Codes: E46 - Unspecified protein-calorie malnutrition Status: Chronic (12) Serum albumin decreased ICD Codes: E88.09 - Other disorders of plasma-protein metabolism, not elsewhere classified Status: Chronic (13) Chronic anticoagulation ICD Codes: Z79.01 - residential (current) use of anticoagulants Status: Chronic Assessment and Plan 41 year old male s/p ex lap; repair of duodenal ulcer, J tube placement -Elevated WBC: DC central line once adequate PIV access obtained -J tube replaced in IR yesterday; increase TF to 40 cc/hr -Clear liquids -Continue Morphine JOB ESTIMATOR -Continue routine RAYMOND care Attending Statement NOTE FOR SURGICAL ATTENDING, DR. JOEL WATSON Patient continues to improve on a daily basis Slight elevation of his white count I suspect possibly central line DC central line Advance diet as tolerated NARINDER Donaldson in a.m. Change medications to by mouth as tolerated We'll plan staple removal in the next few days I agree with above assessment and plan. The exam, history, and the medical decision-making described in the above note were completed with the assistance of the mid-level provider. I reviewed and agree with the findings presented. I attest that I had a [id number] encounter with the patient on the same day, and personally performed and documented my assessment and findings in the medical record. The following services were provided during this hospital visit: Chart data review, vital sign assessments/reviewing monitor data Review of consultations notes if present. Medication orders/review and/or management Ordering and/or reviewing lab tests Ordering and/or interpreting/reviewing x-rays and/or diagnostic studies Care of the patient and discussion of the patient with the care team Documentation time To help prompt me to consider important information that might be impacting today's encounter and assessment, information from prior notes written by myself or my colleagues may have been "brought forward/copy and pasted" into today's note. 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
[2017-09-15] MEDS: HEPARIN SODIUM - IV 10,000 UNITS/10 ML VIAL IV PUSH PRN (17:03)
--- NOTE | 2017-09-15 18:25 | HHI.IDPN ---
Subjective Subjective Remarks pt is on RA + diarrhea not mucjh abd pain tolerates clears no fever WBC going up to 18K Antibiotics none Allergies: Coded Allergies: haloperidol (Unverified Allergy, Severe, DYSTONIC REACTION, 09/01/17) lorazepam (Unverified Allergy, Severe, SEVERE AGITATION, 09/01/17) promethazine (Unverified Allergy, Severe, SEVERE AGITATION, 09/01/17) zolpidem (Unverified Allergy, Severe, severe agitation, 09/01/17) Objective . Vital Signs Date Time Temp Pulse Resp B/P (MAP) Pulse Ox O2 Delivery O2 Flow Rate FiO2 09/15/17 15:42 96 Nasal Cannula 2.00 09/15/17 12:00 97.6 116 20 141/91 (108) 96 09/15/17 08:00 99.1 110 20 155/90 (111) 95 09/15/17 05:52 21 09/15/17 05:49 21 09/15/17 03:20 Nasal Cannula 2.00 09/15/17 03:15 98.8 109 18 143/87 (105) 91 09/15/17 02:00 110 09/15/17 00:00 98.1 116 24 139/89 (106) 95 09/15/17 00:00 116 09/14/17 22:00 106 09/14/17 21:54 18 09/14/17 20:00 98.6 104 17 133/84 (100) 99 09/14/17 20:00 104 09/14/17 19:00 95 Nasal Cannula 2.00 09/15/17 09/15/17 09/16/17 15:00 23:00 07:00 # Bowel Movements 2 . Laboratory Tests Test 09/14/17 03:50 09/15/17 04:15 White Blood Count 14.2 TH/MM3 18.7 TH/MM3 Red Blood Count 2.84 MIL/MM3 3.07 MIL/MM3 Hemoglobin 8.4 GM/DL 9.1 GM/DL Hematocrit 25.1 % 27.5 % Mean Corpuscular Volume 88.6 FL 89.6 FL Mean Corpuscular Hemoglobin 29.5 PG 29.8 PG Mean Corpuscular Hemoglobin Concent 33.3 % 33.2 % Red Cell Distribution Width 17.8 % 18.4 % Platelet Count 497 TH/MM3 585 TH/MM3 Mean Platelet Volume 7.2 FL 7.4 FL Neutrophils (%) (Auto) 78.0 % Lymphocytes (%) (Auto) 12.9 % Monocytes (%) (Auto) 5.7 % Eosinophils (%) (Auto) 1.6 % Basophils (%) (Auto) 1.8 % Neutrophils # (Auto) 11.1 TH/MM3 Lymphocytes # (Auto) 1.8 TH/MM3 Monocytes # (Auto) 0.8 TH/MM3 Eosinophils # (Auto) 0.2 TH/MM3 Basophils # (Auto) 0.3 TH/MM3 CBC Comment DIFF FINAL Differential Comment Laboratory Tests Test 09/14/17 03:50 09/15/17 04:15 Blood Urea Nitrogen 12 MG/DL 11 MG/DL Creatinine 0.74 MG/DL 0.71 MG/DL Random Glucose 93 MG/DL 130 MG/DL Total Protein 6.0 GM/DL Albumin 2.1 GM/DL Calcium Level 8.1 MG/DL 8.2 MG/DL Phosphorus Level 3.5 MG/DL Magnesium Level 2.0 MG/DL Alkaline Phosphatase 84 U/L Aspartate Amino Transf (AST/SGOT) 36 U/L Alanine Aminotransferase (ALT/SGPT) 29 U/L Total Bilirubin 0.4 MG/DL Sodium Level 143 MEQ/L 138 MEQ/L Potassium Level 3.3 MEQ/L 3.5 MEQ/L Chloride Level 108 MEQ/L 103 MEQ/L Carbon Dioxide Level 27.9 MEQ/L 24.0 MEQ/L Anion Gap 7 MEQ/L 11 MEQ/L Estimat Glomerular Filtration Rate 118 ML/MIN 124 ML/MIN Imaging Last Impressions Catheter Change 09/14/17 0000 Signed Impressions: Service Date/Time: Thursday, September 14, 2017 13:49 - CONCLUSION: Uncomplicated tube exchange as above. Albert Lozada MD Chest X-Ray 09/13/17 0600 Signed Impressions: Service Date/Time: Wednesday, September 13, 2017 05:03 - CONCLUSION: No significant change Juan Rivera MD Abdomen X-Ray 09/13/17 0600 Signed Impressions: Service Date/Time: Wednesday, September 13, 2017 05:08 - CONCLUSION: No significant change Juan Rivera MD Abdomen/Pelvis CT 09/09/17 0000 Signed Impressions: Service Date/Time: Saturday, September 09, 2017 16:36 - CONCLUSION: 1. New bilateral pleural effusions and consolidation in both posterior lung bases left greater than right with air bronchograms. 2. Abnormal bowel gas pattern most consistent with an ileus. 3. Bilateral percutaneous drainage catheters in place. 4. Cardiomegaly. Patient is status post median sternotomy. Armen Rodriguez MD Chest CT 09/01/17 0000 Signed Impressions: Service Date/Time: August 07:15 - CONCLUSION: No acute CT findings of the chest Juan Rivera MD Physical Exam CONSTITUTIONAL/GENERAL: Fully awake, alert LINE:R SCV CVC in place, no erythema around it SKIN: No jaundice, rashes, or lesions. Skin temperature appropriate. Not diaphoretic. EYES: Pupils equal and round and reactive. Extraocular motions intact. No scleral icterus. No injection or drainage. Fundi not examined. NECK: Trachea midline. Supple, nontender. No palpable thyroid enlargement or nodularity. CARDIOVASCULAR: Regular rate and rhythm with 2-3/6 systolic murmur, no gallops , or rubs. Mechanical saini sounds No JVD. Peripheral pulses symmetric. RESPIRATORY/CHEST: Symmetric, unlabored respirations. Clear to auscultation. Breath sounds equal bilaterally. No wheezes, rales, or rhonchi. GASTROINTESTINAL: Abdomen soft, mildly tender, modereately distended. Incision dry and clean Drainage around PEG noted No hepato-splenomegaly, or palpable masses. No guarding. BS hypoactive GENITOURINARY: Without palpable bladder distension. Donaldson catheter in place with somewhat cloudy yellow urine MUSCULOSKELETAL: Extremities without clubbing, cyanosis, no edema. No joint tenderness or effusion noted. No calf tenderness. NEUROLOGICAL:awake alert non focal PSYCHIATRIC:calm, cooperative Assessment & Plan Remarks Perforated duodenal ulcer with massive contamination. Sepsis (bandemia, hemodynamic instability acute VDRF and ARF) Sp prosthetic mech valve Remote h/o endocarditis acute VDRF New leukocytosis, Ileus - resolved neg C.diff r/o UTI - chk UA/C+S fu WBC chk CXR consider CT if worsening WBC will chk BC agree with central line removal balbina Melanie Nguyễn Dr, RN, MD Sep 15, 2017 18:25
--- NOTE | 2017-09-15 20:00 | HHI.PR ---
Subjective Remarks WBC is trending up Patient tachycardic Denies fevers or chills Patient states feels anxious Objective Vitals Vital Signs Date Time Temp Pulse Resp B/P (MAP) Pulse Ox O2 Delivery O2 Flow Rate FiO2 09/15/17 16:00 99.2 103 20 139/82 (101) 97 09/15/17 15:42 96 Nasal Cannula 2.00 09/15/17 12:00 97.6 116 20 141/91 (108) 96 09/15/17 08:00 99.1 110 20 155/90 (111) 95 09/15/17 05:52 21 09/15/17 05:49 21 09/15/17 03:20 Nasal Cannula 2.00 09/15/17 03:15 98.8 109 18 143/87 (105) 91 09/15/17 02:00 110 09/15/17 00:00 98.1 116 24 139/89 (106) 95 09/15/17 00:00 116 09/14/17 22:00 106 09/14/17 21:54 18 09/14/17 20:00 98.6 104 17 133/84 (100) 99 09/14/17 20:00 104 I/O 09/14/17 09/14/17 09/14/17 09/15/17 09/15/17 09/15/17 07:00 15:00 23:00 07:00 15:00 23:00 Intake Total 1110 ml 638 ml 294 ml 320 ml 600 ml Output Total 610 ml 605 ml 420 ml Balance 500 ml 638 ml -311 ml -100 ml 600 ml Intake Oral 320 ml 600 ml IV Total 764 ml 638 ml 162 ml Tube Feeding 226 ml 72 ml Other 120 ml 60 ml Output Urine Total 600 ml 600 ml 400 ml Drainage Total 10 ml 5 ml 20 ml # Voids 1 # Bowel Movements 3 0 0 2 Result Diagram: 09/15/17 0415 09/15/17 0415 Imaging Last Impressions Catheter Change 09/14/17 0000 Signed Impressions: Service Date/Time: Thursday, September 14, 2017 13:49 - CONCLUSION: Uncomplicated tube exchange as above. Albert Lozada MD Chest X-Ray 09/13/17 0600 Signed Impressions: Service Date/Time: Wednesday, September 13, 2017 05:03 - CONCLUSION: No significant change Juan Rivera MD Abdomen X-Ray 09/13/17 0600 Signed Impressions: Service Date/Time: Wednesday, September 13, 2017 05:08 - CONCLUSION: No significant change Juan Rivera MD Abdomen/Pelvis CT 09/09/17 0000 Signed Impressions: Service Date/Time: Saturday, September 09, 2017 16:36 - CONCLUSION: 1. New bilateral pleural effusions and consolidation in both posterior lung bases left greater than right with air bronchograms. 2. Abnormal bowel gas pattern most consistent with an ileus. 3. Bilateral percutaneous drainage catheters in place. 4. Cardiomegaly. Patient is status post median sternotomy. Armen Rodriguez MD Chest CT 09/01/17 0000 Signed Impressions: Service Date/Time: August 07:15 - CONCLUSION: No acute CT findings of the chest Juan Rivera MD Objective Remarks AAOx3 NAD Lungs clear to auscultation bilaterally. S1-S2 present with RRR and a systolic 2/6 murmur, tachycardic. Abdomen soft, mildly tender to palpation, mild distention. Procedures None Medications and IVs Current Medications Medications (Trade) Dose Ordered Sig/Khushboo Route Start Time Stop Time Status Last Admin (Protonix Inj) 40 mg Q12HR IV PUSH 09/01/17 09:30 09/15/17 10:56 (NS Flush) 2 ml UNSCH PRN IV FLUSH 09/01/17 09:30 (NS Flush) 2 ml BID IV FLUSH 09/01/17 21:00 09/15/17 10:57 (Zofran Inj) 4 mg Q6H PRN IVP 09/01/17 09:30 09/14/17 22:08 (Milk Of Magnesia Liq) 30 ml Q12H PRN PO 09/01/17 09:30 09/07/17 09:24 (Dulcolax Supp) 10 mg DAILY PRN RECTAL 09/01/17 09:30 09/08/17 08:51 Miscellaneous Information 1 DAILY T-DERMAL 09/02/17 09:00 09/15/17 09:00 (Habitrol 14 Mg Patch.24 Hr) 1 patch DAILY T-DERMAL 09/02/17 09:00 09/15/17 10:58 (Abilify) 5 mg BID PO 09/01/17 21:00 09/15/17 12:09 (Cymbalta Dr) 30 mg DAILY PO 09/01/17 11:45 09/15/17 10:57 (KlonoPIN) 0.5 mg Q8HR PRN PO 09/01/17 20:45 09/15/17 02:40 (Heparin Inj) 5,000 units UNSCH PRN IV PUSH 09/04/17 20:30 (Heparin Inj) 2,500 units UNSCH PRN IV PUSH 09/04/17 20:30 09/15/17 17:03 Heparin Sodium/ Dextrose 250 ml @ 9 mls/hr TITRATE PRN IV 09/04/17 14:30 09/15/17 07:47 Miscellaneous Information D/C ICU ELECTROLYTE ORDERS... UNSCH PRN .XX 09/06/17 04:15 Miscellaneous Information ICU - CALL ORDERING PHYSIC... UNSCH PRN .XX 09/06/17 04:15 Potassium Chloride 100 ml @ 25 mls/hr UNSCH PRN IV 09/06/17 04:15 09/14/17 05:32 (K-Lyte Cl Eff) 50 meq UNSCH PRN PO 09/06/17 04:15 09/12/17 20:05 Potassium Chloride 100 ml @ 50 mls/hr UNSCH PRN IV 09/06/17 04:15 09/11/17 04:52 Magnesium Sulfate 4 gm/Sodium Chloride 108 ml @ 54 mls/hr UNSCH PRN IV 09/06/17 04:15 Magnesium Sulfate 2 gm/Sodium Chloride 104 ml @ 52 mls/hr UNSCH PRN IV 09/06/17 04:15 (Mag-Ox) 800 mg UNSCH PRN PO 09/06/17 04:15 Sodium Phosphate 30 mmol/Sodium Chloride 260 ml @ 43.333 mls/ hr UNSCH PRN IV 09/06/17 04:15 (K-Phos) 2,000 mg UNSCH PRN PO 09/06/17 04:15 Potassium Phosphate 30 mmol/ Sodium Chloride 260 ml @ 43.333 mls/ hr UNSCH PRN IV 09/06/17 04:15 (Tylenol 650 Mg/ 20 ml Liq) 650 mg Q6H PRN NG 3/28/18 14:30 09/09/17 12:39 (Tears Naturale Opth Soln) 1 drop Q8HR EACH EYE 09/07/17 22:00 09/15/17 16:03 (Colace Liq) 100 mg Q12HR PO 09/07/17 21:00 09/14/17 21:35 (Senna Liq) 8.8 mg BID PO 09/07/17 21:00 09/14/17 21:37 (Miralax) 17 gm BID PO 09/07/17 21:00 09/14/17 21:35 (Lactulose Liq) 30 ml BID PO 09/08/17 09:00 09/14/17 21:35 (Ees 200 Mg/5 ml Liq) 200 mg Q8HR PO 09/08/17 08:15 09/15/17 16:02 (Albuterol Neb) 2.5 mg Q2HR NEB PRN NEB 09/09/17 13:30 (Morphine Inj) 4 mg Q2HR PRN IV PUSH 09/13/17 21:00 09/14/17 09:33 (Morphine Inj) 2 mg Q2HR NEB PRN IV PUSH 09/13/17 21:00 (Melatonin) 5 mg HS PRN PO 09/13/17 21:00 09/15/17 02:40 Potassium Chloride/Sodium Chloride 1,000 ml @ 30 mls/hr Q24H IV 09/13/17 22:00 09/14/17 12:41 (Narcan Inj) 0.4 mg UNSCH PRN IV PUSH 09/14/17 10:00 (Morphine 1 Mg/ ml INSURANCE CLAIMS ADJUSTER) 30 mg UNSCH IV 09/14/17 10:00 09/15/17 05:49 INSURANCE CLAIMS ADJUSTER Dosage Infused (Pha) 1 Q8HR .XX 09/14/17 14:00 09/15/17 05:52 (Tigan Inj) 200 mg Q6H PRN IM 09/14/17 23:00 09/14/17 23:48 Piperacillin Sod/ Tazobactam Sod 50 ml @ 100 mls/hr Q6H IV 09/15/17 18:30 UNV Date of Insertion: Sep 02, 2017 Line: Central Venous Catheter Side: Right Location: Subclavian A/P Problem List: (1) S/P MVR (mitral valve replacement) ICD Code: Z95.4 - S/P MVR (mitral valve replacement) Status: Chronic Permanent Comment: Need prophyllaxis - Due to endocarditis Last Edited By: Ozzy Edwards on May 26, 2014 13:06 (2) AICD (automatic cardioverter/defibrillator) present ICD Code: Z95.810 - AICD (automatic cardioverter/defibrillator) present Status: Chronic (3) History of endocarditis ICD Code: Z86.79 - History of endocarditis Status: Acute (4) Anxiety and depression ICD Code: F41.8 - Anxiety and depression Status: Acute (5) Tobacco abuse ICD Code: Z72.0 - Tobacco abuse Status: Acute (6) Anemia ICD Code: D64.9 - Anemia, unspecified Status: Acute (7) GI bleed ICD Code: K92.2 - Gastrointestinal hemorrhage, unspecified Status: Acute (8) Hypertrophic cardiomyopathy ICD Code: I42.2 - Hypertrophic cardiomyopathy Status: Acute Permanent Comment: Dr. [facility]. Stress-echo Last Edited By: Ozzy Edwards on May 26, 2014 13:05 Assessment and Plan Depression Continue Aripiprazole 5 mg twice daily and duloxetine 30 mg daily/home medications for depression/anxiety Continue clonazepam 0.5 mg p.o. every 8 hours as needed anxiety As needed morphine sulfate 2-4 mg IV every 2 hours as needed for pain Melatonin 5 mg at bedtime as needed insomnia HOCM History of mechanical mitral valve replacement ([employer] bileaflet, for previous endocarditis 2000) History of hypertrophic cardiomyopathy, status post septal myomectomy 2069 History of AICD 2013 Hypertension 2D echocardiogram revealed ejection fraction 60% percent. Hypertrophic cardio myopathy. Clinical mitral valve. Moderate MR. Followed by cardiology/Dr. Cabrales Holding atenolol 50 mg twice daily due to hypotension. Resume beta-vannessa when clinically indicated/more hemodynamically stable Currently on heparin drip for mechanical mitral valve. Acute hypoxic respiratory failure Tobacco Nasal cannula to maintain saturations greater than equal to 92% Incentive spirometry while awake Albuterol/ipratropium aerosols every 6 hours with albuterol aerosols every 2 hours as needed dyspnea Nicotine patch 14 mg daily. When appropriate self-evaluation tobacco cessation booklet will be provided Hypoalbuminemia Elevated AST Constipation Colonic ileus Jevity 1.5-50 cc an hour currently on hold. Restarted 30 cc 09/10 per surgery Pantoprazole 40 mg IV twice daily for GI prophylaxis Docusate sodium 100 mg twice daily, senna 8.6 mg twice daily and polyethylene glycol 17 g twice daily and lactulose 30 cc twice daily. Bowel regimen. Methylnaltrexone 12 mg subcu 1 now. Check KUB -colonic ileus 09/02/29. Add metoclopramide 5 mg every 8 hours, E- Mycin 250 mg every 8 hours. Recheck KUB in a.m. 09/[address] abdomen/pelvis 09/10 revealed copious amounts of stool. Air- filled colon. GI also following actively Endo: Sliding scale insulin if indicated to maintain euglycemia TSH 2.37 Renal: Acute kidney injury -resolved Creatinine currently downward trend. Likely secondary to ATN/sepsis. Slowly normalizing Recheck BMP in a.m. Heme: Acute blood loss anemia Normocytic anemia Leukocytosis History of chronic warfarin use 2.5 mg daily Heme positive stools Heparin drip currently at 1700 units an hour Sp transfusion 6 RBCs and 4 FFP during this hospitalization] 09/15 hemoglobin stable so far. Severe sepsis Previously on continuous dosed piperacillin/tazobactam and fluconazole completed on 09/[address] Mohan/infectious Pertinent cultures 09/08 -blood cultures 2 -no growth 09/07 -urine culture -no growth 09/06 -sputum -no growth 09/03 -blood cultures 2 -no growth C. difficile -09/10 negative 09/15 WBC trending up, follow-up UA with cultures and sensitivities ordered by infectious disease., Follow-up chest x-ray. Start on IV Zosyn for 09/15. FEN: Replace electrolytes as clinically indicated One half normal saline with 20 mEq KCl at 30 cc an hour MSK: Holding meloxicam 7.5 mg daily light of acute GI bleed PT evaluate and treat Access -Right subclavian CVL placed 09/02 - Central line removed. -Left radial arterial line 09/02 to 09/08 Prophylaxis -GI -pantoprazole -DVT -SCD/heparin drip Discharge Planning Continue to monitor on the medical floor. Problem Qualifiers (1) Anemia: Qualified Codes: D62 - Acute posthemorrhagic anemia (2) GI bleed: Qualified Codes: K26.4 - Chronic or unspecified duodenal ulcer with hemorrhage Marito Gandhi MD Sep 15, 2017 20:00
--- NOTE | 2017-09-15 20:35 | EKG ---
Date Performed: 09/15/2017 Time Performed: 20:04:13 PTAGE: 41 years EKG: SINUS TACHYCARDIA WITH OCCASIONAL SUPRAVENTRICULAR PREMATURE COMPLEXES LEFT ATRIAL ENLARGEM ENT LEFT BUNDLE BRANCH BLOCK ABNORMAL ECG PREVIOUS TRACING : 09/03/2017 22.47 Compared to previous tracing, heart rate has increased. DOCTOR: Angel Peterson Interpretating Date/Time 09/15/2017 20:33:16
[2017-09-15] MEDS: PIPERACIL-TAZO 3.375 GM PREMIX 50 ML IV SCH (21:10)
[2017-09-15] MEDS ORDERED: POTASSIUM CHLORIDE 20 MEQ PWD PACKET G-TUBE ONE (21:30)
[2017-09-15] MEDS ORDERED: METOPROLOL TARTRATE 25 MG TAB G-TUBE ONE (21:30)
[2017-09-15 21:57] LABS: AMORPHOUS SEDIMENT, URINE RARE; BACTERIA, URINE MOD /hpf; BILIRUBIN, URINE NEG (NEG); BLOOD, URINE MOD (NEG); GLUCOSE,URINE NEG (NEG); HYALINE CAST, URINE 4 /lpf (RARE); KETONE, URINE NEG (NEG); MUCUS URINE MANY /lpf (OCC); NITRITE,URINE NEG (NEG); URINE COLOR YELLOW (YELLW/STRAW); URINE LEUKOCYTE ESTERASE TRACE (NEG)
[2017-09-15] MEDS: 1/2 NS + KCL 20 MEQ INJ 1,000 ML IV SCH (22:01)
[2017-09-16] VITALS (12 sets, daily range): BP systolic 123–180; BP diastolic 78–103; PULSE 87–130; RESP 16–20; TEMP 98–98.3; O2SAT 94–97
[2017-09-16 04:11] LABS: AUTOMATED NEUTROPHIL # 13.8 TH/MM3 (1.8-7.7); BASOPHIL # 0.1 TH/MM3 (0-0.2); BASOPHIL % 0.3 % (0.0-2.0); EOSINOPHIL # 0.3 TH/MM3 (0-0.4); EOSINOPHIL % 1.6 % (0.0-4.0); HEMATOCRIT 26.4 % (39.0-51.0); LYMPH % 11.5 % (9.0-44.0); MEAN CORPUSCULAR HGB CONC 34.1 % (32.0-36.0); MEAN PLATELET VOLUME 7.2 FL (7.0-11.0); MONO % 5.7 % (0.0-8.0); NEUT % 80.9 % (16.0-70.0); PLATELET COUNT 642 TH/MM3 (150-450); RED CELL DISTRIBUTION WIDTH 18.6 % (11.6-17.2)
[2017-09-16] MEDS: PIPERACIL-TAZO 3.375 GM PREMIX 50 ML IV SCH ×4 (04:13→22:50)
[2017-09-16 04:45] LABS: ALBUMIN 2.1 GM/DL (3.4-5.0); AST (GOT) 26 U/L (15-37); BICARBONATE 26.6 MEQ/L (21.0-32.0); BLOOD UREA NITROGEN 12 MG/DL (7-18); CALCIUM 7.9 MG/DL (8.5-10.1); CHLORIDE 101 MEQ/L (98-107); CREATININE 0.65 MG/DL (0.60-1.30); GLOMERULAR FILTRATION RATE 137 ML/MIN (>89); GLUCOSE,RANDOM 110 MG/DL (74-106); MAGNESIUM 1.6 MG/DL (1.5-2.5); SODIUM (NA) 136 MEQ/L (136-145)
[2017-09-16 04:46] LABS: ALT (GPT) 24 U/L (12-78); PHOSPHORUS 3.4 MG/DL (2.5-4.9)
[2017-09-16 04:48] LABS: ALKALINE PHOSPHATASE 71 U/L (45-117); TOTAL BILIRUBIN ADULT 0.4 MG/DL (0.2-1.0); TOTAL PROTEIN 5.8 GM/DL (6.4-8.2)
[2017-09-16] MEDS ORDERED: METOPROLOL TARTRATE 25 MG TAB G-TUBE ONE (05:30)
[2017-09-16] MEDS: ERYTHROMYCIN ETHYLSUCCINATE 200 MG/5 ML SUSP 100 ML BOTTLE PO SCH ×3 (05:45→23:46)
[2017-09-16] MEDS: PCA - TOTAL MG MORPHINE DELIVERED PER SHIFT SCH ×3 (05:45→22:00)
[2017-09-16] MEDS: ARTIFICIAL TEARS OPTH SOLN 15 ML BTL EACH EYE SCH ×3 (05:46→23:47)
[2017-09-16] MEDS: MORPHINE SULFATE 30 MG/30 ML PCA IV SCH (06:04)
--- NOTE | 2017-09-16 06:43 | RADRPT ---
EXAM DATE/TIME: 09/16/2017 06:08 [facility] COMPARISON: CHEST SINGLE AP, September 13, 2017, 5:03. INDICATIONS : Cough, short of breath MEDICAL HISTORY : Myocardial infarction. Congestive heart failure. Hypertension. SURGICAL HISTORY : Pacemaker. mitral valve replacement ENCOUNTER: Subsequent ACUITY: 2 weeks PAIN SCORE: 0/10 LOCATION: Bilateral chest FINDINGS: Single AP view of the chest. AICD in place. Median sternotomy wires are present. Prosthetic cardiac v alve. Endotracheal tube, right subclavian central venous catheter, and nasogastric tube no longer see n. Persistent bilateral left greater than right lower lung zone opacity. CONCLUSION: Endotracheal tube, nasogastric tube, and right subclavian central venous catheter no longer seen. Persistent left lower lobe atelectasis versus consolidation and mild right lung base haz y opacity. Uvaldo Brown MD on September 16, 2017 at 6:36 Board Certified Radiologist. This report was verified electronically.
[2017-09-16] MEDS: HEPARIN SODIUM - IV 10,000 UNITS/10 ML VIAL IV PUSH PRN ×2 (06:50→15:16)
[2017-09-16] MEDS: REMOVE OLD PATCH T-DERMAL SCH (09:45)
[2017-09-16] MEDS: ARIPiprazole 5 MG TAB PO SCH ×2 (09:45→21:38)
[2017-09-16] MEDS: DOCUSATE SODIUM 100 MG/10 ML UDC PO SCH (09:45)
[2017-09-16] MEDS: LACTULOSE SYRUP 20 GM/30 ML CUP PO SCH (09:45)
[2017-09-16] MEDS: POLYETHYLENE GLYCOL 17 GM PKG PO SCH (09:45)
[2017-09-16] MEDS: SENNOSIDES SYRUP 8.8 MG/5 ML CUP PO SCH (09:45)
[2017-09-16] MEDS: SODIUM CHLORIDE 0.9% FLUSH 10 ML FLUSH IV FLUSH SCH ×2 (10:06→21:46)
[2017-09-16] MEDS: DULoxetine HCl DR 30 MG CAP PO SCH (10:07)
[2017-09-16] MEDS: NICOTINE 14 MG/24 HR PATCH T-DERMAL SCH (10:07)
[2017-09-16] MEDS: PANTOPRAZOLE SODIUM 40 MG VIAL IV PUSH SCH (10:07)
[2017-09-16] MEDS: HEPARIN-D5W 25,000 U/250 ML 250 ML IV PRN ×2 (12:28→23:48)
[2017-09-16] MEDS: clonazePAM 0.5 MG TAB PO PRN (12:56)
[2017-09-16] MEDS ORDERED: DOCUSATE SODIUM 100 MG/10 ML UDC PO PRN ×2 (13:15)
--- NOTE | 2017-09-16 13:27 | HHI.PR ---
cc: Joel Watson MD Subjective Subjective Notes DAILY PROGRESS NOTE FOR SURGICAL ATTENDING, DR. JOEL WATSON Patient sitting Feels good Would like more to eat Objective Vitals/I&O Vital Signs Date Time Temp Pulse Resp B/P (MAP) Pulse Ox O2 Delivery O2 Flow Rate FiO2 09/16/17 12:00 98.0 103 16 128/83 (98) 97 09/15/17 20:00 Nasal Cannula 2.00 09/13/17 21:41 21 Labs Laboratory Tests Test 09/15/17 14:30 09/15/17 20:48 09/15/17 23:14 09/16/17 04:00 Activated Partial Thromboplast Time 36.8 46.3 39.4 Urine Color YELLOW Urine Turbidity HAZY Urine pH 6.0 Urine Specific [place] 1.029 Urine Protein 30 Urine Glucose (UA) NEG Urine Ketones NEG Urine Occult Blood MOD Urine Nitrite NEG Urine Bilirubin NEG Urine Urobilinogen 4.0 Urine Leukocyte Esterase TRACE Urine RBC 158 Urine WBC 6 Urine Amorphous Sediment RARE Urine Bacteria MOD Urine Hyaline Casts 4 Urine Mucus MANY Microscopic Urinalysis Comment CATH-CULTURE IND White Blood Count 17.0 Red Blood Count 3.00 Hemoglobin 9.0 Hematocrit 26.4 Mean Corpuscular Volume 88.0 Mean Corpuscular Hemoglobin 30.0 Mean Corpuscular Hemoglobin Concent 34.1 Red Cell Distribution Width 18.6 Platelet Count 642 Mean Platelet Volume 7.2 Neutrophils (%) (Auto) 80.9 Lymphocytes (%) (Auto) 11.5 Monocytes (%) (Auto) 5.7 Eosinophils (%) (Auto) 1.6 Basophils (%) (Auto) 0.3 Neutrophils # (Auto) 13.8 Lymphocytes # (Auto) 2.0 Monocytes # (Auto) 1.0 Eosinophils # (Auto) 0.3 Basophils # (Auto) 0.1 CBC Comment DIFF FINAL Differential Comment Blood Urea Nitrogen 12 Creatinine 0.65 Random Glucose 110 Total Protein 5.8 Albumin 2.1 Calcium Level 7.9 Phosphorus Level 3.4 Magnesium Level 1.6 Alkaline Phosphatase 71 Aspartate Amino Transf (AST/SGOT) 26 Alanine Aminotransferase (ALT/SGPT) 24 Total Bilirubin 0.4 Sodium Level 136 Potassium Level 3.2 Chloride Level 101 Carbon Dioxide Level 26.6 Anion Gap 8 Estimat Glomerular Filtration Rate 137 Date/Time Source Procedure Growth Status 09/15/17 19:49 Blood Peripheral Aerobic Blood Culture - Preliminary NO GROWTH IN 1 DAY Resulted 09/15/17 19:49 Blood Peripheral Anaerobic Blood Culture - Preliminary NO GROWTH IN 1 DAY Resulted 09/10/17 17:50 Stool Stool Stool Occult Blood (TARAN) - Final HEMOCCULT POSITIVE Complete 09/09/17 19:00 Sputum Endotracheal Gram Stain - Final Complete 09/09/17 19:00 Sputum Endotracheal Sputum Culture - Final RARE GROWTH NORMAL RESPIRATORY MAXIM Complete 09/15/17 20:48 Urine Catheterized Urine Urine Culture Pending Received Radiology Last Impressions Chest X-Ray 09/13/17 06 Signed Impressions: Service Date/Time: Wednesday, September 13, 2017 05:03 - CONCLUSION: No significant change Juan Rivera MD Abdomen X-Ray 09/13/17 06 Signed Impressions: Service Date/Time: Wednesday, September 13, 2017 05:08 - CONCLUSION: No significant change Juan Rivera MD Abdomen/Pelvis CT 09/09/17 0000 Signed Impressions: Service Date/Time: Saturday, September 09, 2017 16:36 - CONCLUSION: 1. New bilateral pleural effusions and consolidation in both posterior lung bases left greater than right with air bronchograms. 2. Abnormal bowel gas pattern most consistent with an ileus. 3. Bilateral percutaneous drainage catheters in place. 4. Cardiomegaly. Patient is status post median sternotomy. Armen Rodriguez MD Chest CT 09/01/17 0000 Signed Impressions: Service Date/Time: August 07:15 - CONCLUSION: No acute CT findings of the chest Juan Rivera MD Cardiovascular: Regular Lungs: Clear Abdomen: Post-op tenderness, BS normal Extremities: Perfused, SCD's on Narrative Exam alexi clear drainage Having bowel movements Decreasing NG output Tolerating tube feeds at 40 cc A/P Problem List: (1) Status post exploratory laparotomy ICD Codes: Z98.890 - Other specified postprocedural states Status: Acute (2) Duodenal ulcer perforation ICD Codes: K26.5 - Chronic or unspecified duodenal ulcer with perforation Status: Chronic (3) Duodenal ulcer with perforation ICD Codes: K26.5 - Chronic or unspecified duodenal ulcer with perforation Status: Chronic (4) H/O hypertrophic cardiomyopathy ICD Codes: Z86.79 - Personal history of other diseases of the circulatory system Status: Chronic (5) Perforation of duodenal ulcer ICD Codes: K26.5 - Chronic or unspecified duodenal ulcer with perforation Status: Acute (6) Anemia ICD Codes: D64.9 - Anemia, unspecified Status: Acute (7) GI bleed ICD Codes: K92.2 - Gastrointestinal hemorrhage, unspecified Status: Acute (8) AICD (automatic cardioverter/defibrillator) present ICD Codes: Z95.810 - AICD (automatic cardioverter/defibrillator) present Status: Chronic (9) S/P MVR (mitral valve replacement) ICD Codes: Z95.4 - S/P MVR (mitral valve replacement) Status: Chronic Permanent Comment: Need prophyllaxis - Due to endocarditis Last Edited By: Ozzy Edwards on May 26, 2014 13:06 (10) H/O mitral valve replacement with mechanical valve ICD Codes: Z95.2 - Presence of prosthetic heart valve Status: Chronic (11) Malnutrition ICD Codes: E46 - Unspecified protein-calorie malnutrition Status: Chronic (12) Serum albumin decreased ICD Codes: E88.09 - Other disorders of plasma-protein metabolism, not elsewhere classified Status: Chronic (13) Chronic anticoagulation ICD Codes: Z79.01 - prison (current) use of anticoagulants Status: Chronic Assessment and Plan 41-year-old gentleman with a heart valve perforated duodenal ulcer requiring Jay patch Patient doing very well Will transition to by mouth medication Discussed with Dr. Mohan We'll start night feeds on Tuesday Increase diet Increase activities Wean off TECHNICAL AID pump Change Protonix by mouth Attending Statement NOTE FOR SURGICAL ATTENDING, DR. JOEL WATSON I attest that I had a [id number] encounter with the patient on the same day, and personally performed and documented my assessment and findings in the medical record. The following services were provided during this hospital visit: Chart data review, vital sign assessments/reviewing monitor data Review of consultations notes if present. Medication orders/review and/or management Ordering and/or reviewing lab tests Ordering and/or interpreting/reviewing x-rays and/or diagnostic studies Care of the patient and discussion of the patient with the care team Documentation time To help prompt me to consider important information that might be impacting today's encounter and assessment, information from prior notes written by myself or my colleagues may have been "brought forward/copy and pasted" into today's note. Problem Qualifiers (1) Anemia: Qualified Codes: D62 - Acute posthemorrhagic anemia (2) GI bleed: Qualified Codes: K26.4 - Chronic or unspecified duodenal ulcer with hemorrhage (3) Malnutrition: Joel Watson MD Sep 16, 2017 13:27
--- NOTE | 2017-09-16 15:11 | HHI.IDPN ---
Subjective Subjective Remarks + diarrhea, very dark denies abd pain Antibiotics zosyn Allergies: Coded Allergies: haloperidol (Unverified Allergy, Severe, DYSTONIC REACTION, 09/01/17) lorazepam (Unverified Allergy, Severe, SEVERE AGITATION, 09/01/17) promethazine (Unverified Allergy, Severe, SEVERE AGITATION, 09/01/17) zolpidem (Unverified Allergy, Severe, severe agitation, 09/01/17) Objective . Vital Signs Date Time Temp Pulse Resp B/P (MAP) Pulse Ox O2 Delivery O2 Flow Rate FiO2 09/16/17 12:00 98.0 103 16 128/83 (98) 97 09/16/17 08:00 98.3 90 17 149/91 (110) 94 09/16/17 06:04 19 09/16/17 05:45 19 09/16/17 05:29 105 18 137/93 (108) 95 09/16/17 04:33 130 09/16/17 04:10 108 09/16/17 04:05 98.2 103 20 180/83 (115) 94 09/16/17 00:05 92 09/15/17 23:35 99.1 90 20 147/79 (101) 20 09/15/17 22:00 17 09/15/17 21:21 115 09/15/17 20:39 105 09/15/17 20:00 Nasal Cannula 2.00 09/15/17 20:00 98.3 123 22 133/88 (103) 94 09/15/17 16:00 99.2 103 20 139/82 (101) 97 09/15/17 15:42 96 Nasal Cannula 2.00 . Laboratory Tests Test 09/15/17 04:15 09/16/17 04:00 White Blood Count 18.7 TH/MM3 17.0 TH/MM3 Red Blood Count 3.07 MIL/MM3 3.00 MIL/MM3 Hemoglobin 9.1 GM/DL 9.0 GM/DL Hematocrit 27.5 % 26.4 % Mean Corpuscular Volume 89.6 FL 88.0 FL Mean Corpuscular Hemoglobin 29.8 PG 30.0 PG Mean Corpuscular Hemoglobin Concent 33.2 % 34.1 % Red Cell Distribution Width 18.4 % 18.6 % Platelet Count 585 TH/MM3 642 TH/MM3 Mean Platelet Volume 7.4 FL 7.2 FL Neutrophils (%) (Auto) 80.9 % Lymphocytes (%) (Auto) 11.5 % Monocytes (%) (Auto) 5.7 % Eosinophils (%) (Auto) 1.6 % Basophils (%) (Auto) 0.3 % Neutrophils # (Auto) 13.8 TH/MM3 Lymphocytes # (Auto) 2.0 TH/MM3 Monocytes # (Auto) 1.0 TH/MM3 Eosinophils # (Auto) 0.3 TH/MM3 Basophils # (Auto) 0.1 TH/MM3 CBC Comment DIFF FINAL Differential Comment Laboratory Tests Test 09/15/17 04:15 09/16/17 04:00 Blood Urea Nitrogen 11 MG/DL 12 MG/DL Creatinine 0.71 MG/DL 0.65 MG/DL Random Glucose 130 MG/DL 110 MG/DL Calcium Level 8.2 MG/DL 7.9 MG/DL Sodium Level 138 MEQ/L 136 MEQ/L Potassium Level 3.5 MEQ/L 3.2 MEQ/L Chloride Level 103 MEQ/L 101 MEQ/L Carbon Dioxide Level 24.0 MEQ/L 26.6 MEQ/L Anion Gap 11 MEQ/L 8 MEQ/L Estimat Glomerular Filtration Rate 124 ML/MIN 137 ML/MIN Total Protein 5.8 GM/DL Albumin 2.1 GM/DL Phosphorus Level 3.4 MG/DL Magnesium Level 1.6 MG/DL Alkaline Phosphatase 71 U/L Aspartate Amino Transf (AST/SGOT) 26 U/L Alanine Aminotransferase (ALT/SGPT) 24 U/L Total Bilirubin 0.4 MG/DL Microbiology Date/Time Source Procedure Growth Status 09/15/17 19:49 Blood Peripheral Aerobic Blood Culture - Preliminary NO GROWTH IN 1 DAY Resulted 09/15/17 19:49 Blood Peripheral Anaerobic Blood Culture - Preliminary NO GROWTH IN 1 DAY Resulted 09/15/17 19:44 Blood Peripheral Aerobic Blood Culture - Preliminary NO GROWTH IN 1 DAY Resulted 09/15/17 19:44 Blood Peripheral Anaerobic Blood Culture - Preliminary NO GROWTH IN 1 DAY Resulted 09/15/17 20:48 Urine Catheterized Urine Urine Culture - Preliminary NO GROWTH IN 24 HOURS. Resulted Imaging Last Impressions Chest X-Ray 09/16/17 0600 Signed Impressions: Service Date/Time: Saturday, September 16, 2017 06:08 - CONCLUSION: Endotracheal tube , nasogastric tube, and right subclavian central venous catheter no longer seen. Persistent left lower lobe atelectasis versus consolidation and mild right lung base hazy opacity. Uvaldo Brown MD Catheter Change 09/14/17 0000 Signed Impressions: Service Date/Time: Thursday, September 14, 2017 13:49 - CONCLUSION: Uncomplicated tube exchange as above. Albert Lozada MD Abdomen X-Ray 09/13/17 0600 Signed Impressions: Service Date/Time: Wednesday, September 13, 2017 05:08 - CONCLUSION: No significant change Juan Rivera MD Abdomen/Pelvis CT 09/09/17 0000 Signed Impressions: Service Date/Time: Saturday, September 09, 2017 16:36 - CONCLUSION: 1. New bilateral pleural effusions and consolidation in both posterior lung bases left greater than right with air bronchograms. 2. Abnormal bowel gas pattern most consistent with an ileus. 3. Bilateral percutaneous drainage catheters in place. 4. Cardiomegaly. Patient is status post median sternotomy. Armen Rodriguez MD Chest CT 09/01/17 0000 Signed Impressions: Service Date/Time: August 07:15 - CONCLUSION: No acute CT findings of the chest Juan Rivera MD Physical Exam CONSTITUTIONAL/GENERAL: Fully awake, alert LINE:R SCV CVC in place, no erythema around it SKIN: No jaundice, rashes, or lesions. Skin temperature appropriate. Not diaphoretic. EYES: Pupils equal and round and reactive. Extraocular motions intact. No scleral icterus. No injection or drainage. Fundi not examined. NECK: Trachea midline. Supple, nontender. No palpable thyroid enlargement or nodularity. CARDIOVASCULAR: Regular rate and rhythm with 2-3/6 systolic murmur, no gallops , or rubs. Mechanical saini sounds No JVD. Peripheral pulses symmetric. RESPIRATORY/CHEST: Symmetric, unlabored respirations. Clear to auscultation. Breath sounds equal bilaterally. No wheezes, rales, or rhonchi. GASTROINTESTINAL: Abdomen soft, mildly tender, modereately distended. Incision dry and clean J tube sit OK No hepato-splenomegaly, or palpable masses. No guarding. BS hypoactive GENITOURINARY: Without palpable bladder distension. Donaldson catheter in place with somewhat cloudy yellow urine MUSCULOSKELETAL: Extremities without clubbing, cyanosis, no edema. No joint tenderness or effusion noted. No calf tenderness. NEUROLOGICAL:awake alert non focal PSYCHIATRIC:calm, cooperative Assessment & Plan Remarks Perforated duodenal ulcer with massive contamination. Sepsis (bandemia, hemodynamic instability acute VDRF and ARF) Sp prosthetic mech valve Remote h/o endocarditis acute VDRF New leukocytosis, stable Ileus - resolved neg C.diff UA not cw UTI Diarrhea, abx associated fu WBC chk CXR consider CT if worsening WBC will chk BC cont zosyn for now rechk stool for C.Melanie Moreno Dr, RN, MD Sep 16, 2017 15:11
[2017-09-16] MEDS: ACETAMINOPHEN/HYDROcodone 325 MG/5 MG TAB PO PRN ×2 (15:17→21:37)
--- NOTE | 2017-09-16 19:17 | HHI.PR ---
Subjective Remarks + dark diarrhea denies abdominal pain Denies cp/sob Objective Vitals Vital Signs Date Time Temp Pulse Resp B/P (MAP) Pulse Ox O2 Delivery O2 Flow Rate FiO2 09/16/17 16:00 98.1 95 18 147/103 (118) 95 09/16/17 12:00 98.0 103 16 128/83 (98) 97 09/16/17 08:00 98.3 90 17 149/91 (110) 94 09/16/17 06:04 19 09/16/17 05:45 19 09/16/17 05:29 105 18 137/93 (108) 95 09/16/17 04:33 130 09/16/17 04:10 108 09/16/17 04:05 98.2 103 20 180/83 (115) 94 09/16/17 00:05 92 09/15/17 23:35 99.1 90 20 147/79 (101) 20 09/15/17 22:00 17 09/15/17 21:21 115 09/15/17 20:39 105 09/15/17 20:00 Nasal Cannula 2.00 09/15/17 20:00 98.3 123 22 133/88 (103) 94 I/O 09/15/17 09/15/17 09/15/17 09/16/17 09/16/17 09/16/17 07:00 15:00 23:00 07:00 15:00 23:00 Intake Total 320 ml 600 ml 250 ml 120 ml Output Total 420 ml 520 ml Balance -100 ml 600 ml 250 ml -400 ml Intake Oral 320 ml 600 ml 120 ml IV Total 250 ml Output Urine Total 400 ml 500 ml Drainage Total 20 ml 20 ml # Voids 1 # Bowel Movements 0 2 1 Result Diagram: 09/16/17 0400 09/16/17 0400 Imaging Last Impressions Chest X-Ray 09/16/17 0600 Signed Impressions: Service Date/Time: Saturday, September 16, 2017 06:08 - CONCLUSION: Endotracheal tube , nasogastric tube, and right subclavian central venous catheter no longer seen. Persistent left lower lobe atelectasis versus consolidation and mild right lung base hazy opacity. Uvaldo Brown MD Catheter Change 09/14/17 0000 Signed Impressions: Service Date/Time: Thursday, September 14, 2017 13:49 - CONCLUSION: Uncomplicated tube exchange as above. Albert Lozada MD Abdomen X-Ray 09/13/17 0600 Signed Impressions: Service Date/Time: Wednesday, September 13, 2017 05:08 - CONCLUSION: No significant change Juan Rivera MD Abdomen/Pelvis CT 09/09/17 0000 Signed Impressions: Service Date/Time: Saturday, September 09, 2017 16:36 - CONCLUSION: 1. New bilateral pleural effusions and consolidation in both posterior lung bases left greater than right with air bronchograms. 2. Abnormal bowel gas pattern most consistent with an ileus. 3. Bilateral percutaneous drainage catheters in place. 4. Cardiomegaly. Patient is status post median sternotomy. Amren Rodriguez MD Chest CT 09/01/17 0000 Signed Impressions: Service Date/Time: August 07:15 - CONCLUSION: No acute CT findings of the chest Juan Rivera MD Objective Remarks AAOx3 NAD Lungs clear to auscultation bilaterally. S1-S2 present with RRR and a systolic 2/6 murmur, tachycardic. Abdomen soft, mildly tender to palpation, mild distention. Procedures None Medications and IVs Current Medications Medications (Trade) Dose Ordered Sig/Khushboo Route Start Time Stop Time Status Last Admin (NS Flush) 2 ml UNSCH PRN IV FLUSH 09/01/17 09:30 (NS Flush) 2 ml BID IV FLUSH 09/01/17 21:00 09/16/17 10:06 (Zofran Inj) 4 mg Q6H PRN IVP 09/01/17 09:30 09/14/17 22:08 (Milk Of Magnesia Liq) 30 ml Q12H PRN PO 09/01/17 09:30 09/07/17 09:24 (Dulcolax Supp) 10 mg DAILY PRN RECTAL 09/01/17 09:30 09/08/17 08:51 Miscellaneous Information 1 DAILY T-DERMAL 09/02/17 09:00 09/16/17 09:45 (Habitrol 14 Mg Patch.24 Hr) 1 patch DAILY T-DERMAL 09/02/17 09:00 09/16/17 10:07 (Abilify) 5 mg BID PO 09/01/17 21:00 09/16/17 09:45 (Cymbalta Dr) 30 mg DAILY PO 09/01/17 11:45 09/16/17 10:07 (KlonoPIN) 0.5 mg Q8HR PRN PO 09/01/17 20:45 09/16/17 12:56 (Heparin Inj) 5,000 units UNSCH PRN IV PUSH 09/04/17 20:30 (Heparin Inj) 2,500 units UNSCH PRN IV PUSH 09/04/17 20:30 09/16/17 15:16 Heparin Sodium/ Dextrose 250 ml @ 9 mls/hr TITRATE PRN IV 09/04/17 14:30 09/16/17 12:28 (Tylenol 650 Mg/ 20 ml Liq) 650 mg Q6H PRN NG 09/07/17 14:30 09/09/17 12:39 (Tears Naturale Opth Soln) 1 drop Q8HR EACH EYE 09/07/17 22:00 09/16/17 15:18 (Ees 200 Mg/5 ml Liq) 200 mg Q8HR PO 09/08/17 08:15 09/16/17 14:00 (Albuterol Neb) 2.5 mg Q2HR NEB PRN NEB 09/09/17 13:30 (Melatonin) 5 mg HS PRN PO 09/13/17 21:00 09/15/17 02:40 Potassium Chloride/Sodium Chloride 1,000 ml @ 30 mls/hr Q24H IV 09/13/17 22:00 09/15/17 22:01 (Narcan Inj) 0.4 mg UNSCH PRN IV PUSH 09/14/17 10:00 (Morphine 1 Mg/ ml CREDIT [employer]LECTIONS SPECIALIST) 30 mg UNSCH IV 09/14/17 10:00 09/16/17 06:04 CREDIT [employer]LE[employer] SPECIALIST Dosage Infused (Pha) 1 Q8HR .XX 09/14/17 14:00 09/16/17 05:45 Piperacillin Sod/ Tazobactam Sod 50 ml @ 100 mls/hr Q6H IV 09/15/17 21:00 09/16/17 17:34 (Protonix) 40 mg BID PO 09/16/17 21:00 ([place] 5-325 Mg) 1 tab Q6H PRN PO 09/16/17 13:15 09/16/17 15:17 (Colace Liq) 100 mg Q12HR PRN PO 09/16/17 13:15 Date of Insertion: Sep 02, 2017 Line: Central Venous Catheter Side: Right Location: Subclavian A/P Problem List: (1) S/P MVR (mitral valve replacement) ICD Code: Z95.4 - S/P MVR (mitral valve replacement) Status: Chronic Permanent Comment: Need prophyllaxis - Due to endocarditis Last Edited By: Ozzy Edwards on May 26, 2014 13:06 (2) AICD (automatic cardioverter/defibrillator) present ICD Code: Z95.810 - AICD (automatic cardioverter/defibrillator) present Status: Chronic (3) History of endocarditis ICD Code: Z86.79 - History of endocarditis Status: Acute (4) Anxiety and depression ICD Code: F41.8 - Anxiety and depression Status: Acute (5) Tobacco abuse ICD Code: Z72.0 - Tobacco abuse Status: Acute (6) Anemia ICD Code: D64.9 - Anemia, unspecified Status: Acute (7) GI bleed ICD Code: K92.2 - Gastrointestinal hemorrhage, unspecified Status: Acute (8) Hypertrophic cardiomyopathy ICD Code: I42.2 - Hypertrophic cardiomyopathy Status: Acute Permanent Comment: Dr. [facility]. Stress-echo Last Edited By: Ozzy Edwards on May 26, 2014 13:05 Assessment and Plan Depression Continue Aripiprazole 5 mg twice daily and duloxetine 30 mg daily/home medications for depression/anxiety Continue clonazepam 0.5 mg p.o. every 8 hours as needed anxiety As needed morphine sulfate 2-4 mg IV every 2 hours as needed for pain Melatonin 5 mg at bedtime as needed insomnia HOCM History of mechanical mitral valve replacement ([place], for previous endocarditis 2000) History of hypertrophic cardiomyopathy, status post septal myomectomy 2069 History of AICD 2013 Hypertension Nonsustained V. tach 2D echocardiogram revealed ejection fraction 60% percent. Hypertrophic cardio myopathy. Clinical mitral valve. Moderate MR. Followed by cardiology/Dr. Cabrales Holding atenolol 50 mg twice daily due to hypotension. Resume beta-vannessa when clinically indicated/more hemodynamically stable Currently on heparin drip for mechanical mitral valve. 09/16 telemetry showed episodes of nonsustained V. tach. Potassium is 3.2 and (1.6. I will replace potassium orally with potassium chloride and magnesium with magnesium sulfate IV. Goal potassium more than 4 and magnesium more than 2. We will start the patient on metoprolol tartrate. Acute hypoxic respiratory failure Tobacco Nasal cannula to maintain saturations greater than equal to 92% Incentive spirometry while awake Albuterol/ipratropium aerosols every 6 hours with albuterol aerosols every 2 hours as needed dyspnea Nicotine patch 14 mg daily. When appropriate self-evaluation tobacco cessation booklet will be provided Hypoalbuminemia Elevated AST Constipation Colonic ileus Jevity 1.5-50 cc an hour currently on hold. Restarted 30 cc 09/10 per surgery Pantoprazole 40 mg IV twice daily for GI prophylaxis Docusate sodium 100 mg twice daily, senna 8.6 mg twice daily and polyethylene glycol 17 g twice daily and lactulose 30 cc twice daily. Bowel regimen. Methylnaltrexone 12 mg subcu 1 now. Check KUB -colonic ileus 09/02/29. Add metoclopramide 5 mg every 8 hours, E- Mycin 250 mg every 8 hours. Recheck KUB in a.m. 09/[address] abdomen/pelvis 09/10 revealed copious amounts of stool. Air- filled colon. GI also following actively Endo: Sliding scale insulin if indicated to maintain euglycemia TSH 2.37 Renal: Acute kidney injury -resolved Hypokalemia Creatinine currently downward trend. Likely secondary to ATN/sepsis. Slowly normalizing Recheck BMP in a.m. Heme: Acute blood loss anemia Normocytic anemia Leukocytosis History of chronic warfarin use 2.5 mg daily Heme positive stools Heparin drip currently at 1700 units an hour Sp transfusion 6 RBCs and 4 FFP during this hospitalization] / hemoglobin stable so far. 09/16 hemoglobin stable at 9.0. Given dark diarrhea hold resuming Coumadin given dark stools. Check CBC. Confuse as needed for hemoglobin less than 7 or symptomatic anemia. If patient is actively bleeding then transfuse for hemoglobin less than 8. Goal hemoglobin more than 9. Severe sepsis Previously on continuous dosed piperacillin/tazobactam and fluconazole completed on 09/[address] Mohan/infectious Pertinent cultures 09/08 -blood cultures 2 -no growth 09/07 -urine culture -no growth 09/06 -sputum -no growth 09/03 -blood cultures 2 -no growth C. difficile -09/10 negative 09/15 WBC trending up, follow-up UA with cultures and sensitivities ordered by infectious disease., Follow-up chest x-ray. Start on IV Zosyn for 09/15. 09/16 UA not congruent with UTI. Chest x-ray show a persistent left lower lobe atelectasis versus consolidation and mild right lung base hazy opacity. WBCs trending down. Possible healthcare associated pneumonia. Continue antibiotics as per ID. The patient is currently on IV Zosyn. Recheck stool C. difficile PCR given that the patient has diarrhea. FEN: Replace electrolytes as clinically indicated One half normal saline with 20 mEq KCl at 30 cc an hour 09/16 DC IV fluids. MSK: Holding meloxicam 7.5 mg daily light of acute GI bleed PT evaluate and treat Access -Right subclavian CVL placed 09/02 - Central line removed. -Left radial arterial line 09/02 to 09/08 Prophylaxis -GI -pantoprazole -DVT -SCD/heparin drip Discharge Planning Continue to monitor on the medical floor. Problem Qualifiers (1) Anemia: Qualified Codes: D62 - Acute posthemorrhagic anemia (2) GI bleed: Qualified Codes: K26.4 - Chronic or unspecified duodenal ulcer with hemorrhage Marito Gandhi MD Sep 16, 2017 19:17
[2017-09-16] MEDS ORDERED: POTASSIUM CHLORIDE 10 MEQ CONTROLLED RELEASE TAB PO ONE (19:45)
[2017-09-16 20:26] LABS: HEMATOCRIT 26.1 % (39.0-51.0); HEMOGLOBIN 8.7 GM/DL (13.0-17.0); MEAN CELL VOLUME 89.4 FL (80.0-100.0); MEAN CORPUSCULAR HEMOGLOBIN 29.8 PG (27.0-34.0); MEAN CORPUSCULAR HGB CONC 33.3 % (32.0-36.0); PLATELET COUNT 640 TH/MM3 (150-450); RED BLOOD COUNT 2.92 MIL/MM3 (4.50-5.90); RED CELL DISTRIBUTION WIDTH 18.6 % (11.6-17.2); WHITE BLOOD COUNT 15.4 TH/MM3 (4.0-11.0)
[2017-09-16] MEDS: METOPROLOL TARTRATE 25 MG TAB PO SCH (21:38)
[2017-09-16] MEDS: PANTOPRAZOLE SOD 40 MG DELAYED RELEASE TAB PO SCH (21:38)
[2017-09-16] MEDS: MAGNESIUM SULFATE 1 GM PREMIX 100 ML IV SCH ×2 (21:55→23:47)
[2017-09-17] VITALS (8 sets, daily range): BP systolic 139–160; BP diastolic 78–87; PULSE 87–147; RESP 17–21; TEMP 97.6–98.5; O2SAT 94–97
[2017-09-17] MEDS: clonazePAM 0.5 MG TAB PO PRN ×3 (00:41→21:35)
[2017-09-17] MEDS: MELATONIN 5 MG TAB PO PRN (00:41)
[2017-09-17 02:06] LABS: AUTOMATED NEUTROPHIL # 11.1 TH/MM3 (1.8-7.7); BASOPHIL # 0.1 TH/MM3 (0-0.2); BASOPHIL % 0.9 % (0.0-2.0); EOSINOPHIL # 0.2 TH/MM3 (0-0.4); EOSINOPHIL % 1.4 % (0.0-4.0); HEMATOCRIT 22.8 % (39.0-51.0); HEMOGLOBIN 8.2 GM/DL (13.0-17.0); LYMPH % 13.5 % (9.0-44.0); LYMPHOCYTE # 1.9 TH/MM3 (1.0-4.8); MEAN CELL VOLUME 87.2 FL (80.0-100.0); MEAN CORPUSCULAR HEMOGLOBIN 31.5 PG (27.0-34.0); MEAN PLATELET VOLUME 7.1 FL (7.0-11.0); MONO % 6.4 % (0.0-8.0); MONOCYTE # 0.9 TH/MM3 (0-0.9); NEUT % 77.8 % (16.0-70.0); PLATELET COUNT 571 TH/MM3 (150-450); RED BLOOD COUNT 2.62 MIL/MM3 (4.50-5.90); RED CELL DISTRIBUTION WIDTH 18.7 % (11.6-17.2); WHITE BLOOD COUNT 14.2 TH/MM3 (4.0-11.0)
[2017-09-17 02:15] LABS: MEAN CORPUSCULAR HGB CONC 36.1 % (32.0-36.0)
[2017-09-17 02:31] LABS: ALBUMIN 2.2 GM/DL (3.4-5.0); ALT (GPT) 24 U/L (12-78); AST (GOT) 26 U/L (15-37); BICARBONATE 27.5 MEQ/L (21.0-32.0); BLOOD UREA NITROGEN 10 MG/DL (7-18); CALCIUM 7.9 MG/DL (8.5-10.1); CHLORIDE 104 MEQ/L (98-107); CREATININE 0.76 MG/DL (0.60-1.30); GLOMERULAR FILTRATION RATE 114 ML/MIN (>89); GLUCOSE,RANDOM 115 MG/DL (74-106); MAGNESIUM 2.1 MG/DL (1.5-2.5); SODIUM (NA) 139 MEQ/L (136-145)
[2017-09-17 02:34] LABS: ALKALINE PHOSPHATASE 70 U/L (45-117); TOTAL BILIRUBIN ADULT 0.4 MG/DL (0.2-1.0); TOTAL PROTEIN 5.9 GM/DL (6.4-8.2)
[2017-09-17] MEDS: PIPERACIL-TAZO 3.375 GM PREMIX 50 ML IV SCH ×4 (04:23→21:09)
[2017-09-17] MEDS: PCA - TOTAL MG MORPHINE DELIVERED PER SHIFT SCH ×2 (05:29→14:00)
[2017-09-17] MEDS: ERYTHROMYCIN ETHYLSUCCINATE 200 MG/5 ML SUSP 100 ML BOTTLE PO SCH ×3 (06:32→21:09)
[2017-09-17] MEDS: ACETAMINOPHEN/HYDROcodone 325 MG/5 MG TAB PO PRN ×3 (06:32→21:35)
[2017-09-17] MEDS: ARTIFICIAL TEARS OPTH SOLN 15 ML BTL EACH EYE SCH ×3 (06:32→21:09)
[2017-09-17] MEDS: REMOVE OLD PATCH T-DERMAL SCH (09:00)
[2017-09-17] MEDS: ARIPiprazole 5 MG TAB PO SCH ×2 (09:22→20:12)
[2017-09-17] MEDS: PANTOPRAZOLE SOD 40 MG DELAYED RELEASE TAB PO SCH ×2 (09:22→20:12)
[2017-09-17] MEDS: METOPROLOL TARTRATE 25 MG TAB PO SCH ×2 (09:22→20:13)
[2017-09-17] MEDS: DULoxetine HCl DR 30 MG CAP PO SCH (09:22)
[2017-09-17] MEDS: SODIUM CHLORIDE 0.9% FLUSH 10 ML FLUSH IV FLUSH SCH ×2 (09:23→20:13)
[2017-09-17] MEDS: NICOTINE 14 MG/24 HR PATCH T-DERMAL SCH (09:23)
[2017-09-17] MEDS: HEPARIN-D5W 25,000 U/250 ML 250 ML IV PRN (11:46)
--- NOTE | 2017-09-17 14:47 | HHI.PR ---
cc: Joel Watson MD Subjective Subjective Notes DAILY PROGRESS NOTE FOR SURGICAL ATTENDING, DR. JOEL WATSON I feel good Tolerating diet Ambulating in the room some Objective Vitals/I&O Vital Signs Date Time Temp Pulse Resp B/P (MAP) Pulse Ox O2 Delivery O2 Flow Rate FiO2 09/17/17 12:00 98.0 99 17 139/80 (99) 97 09/16/17 21:40 Room Air 09/15/17 20:00 2.00 09/13/17 21:41 21 Labs Laboratory Tests Test 09/16/17 19:59 09/17/17 01:52 09/17/17 05:29 White Blood Count 15.4 14.2 Red Blood Count 2.92 2.62 Hemoglobin 8.7 8.2 Hematocrit 26.1 22.8 Mean Corpuscular Volume 89.4 87.2 Mean Corpuscular Hemoglobin 29.8 31.5 Mean Corpuscular Hemoglobin Concent 33.3 36.1 Red Cell Distribution Width 18.6 18.7 Platelet Count 640 571 Mean Platelet Volume 7.0 7.1 Activated Partial Thromboplast Time 54.9 64.1 63.2 Neutrophils (%) (Auto) 77.8 Lymphocytes (%) (Auto) 13.5 Monocytes (%) (Auto) 6.4 Eosinophils (%) (Auto) 1.4 Basophils (%) (Auto) 0.9 Neutrophils # (Auto) 11.1 Lymphocytes # (Auto) 1.9 Monocytes # (Auto) 0.9 Eosinophils # (Auto) 0.2 Basophils # (Auto) 0.1 CBC Comment AUTO DIFF Differential Comment AUTO DIFF CONFIRMED Platelet Estimate HIGH Platelet Morphology Comment NORMAL Blood Urea Nitrogen 10 Creatinine 0.76 Random Glucose 115 Total Protein 5.9 Albumin 2.2 Calcium Level 7.9 Phosphorus Level 3.0 Magnesium Level 2.1 Alkaline Phosphatase 70 Aspartate Amino Transf (AST/SGOT) 26 Alanine Aminotransferase (ALT/SGPT) 24 Total Bilirubin 0.4 Sodium Level 139 Potassium Level 3.5 Chloride Level 104 Carbon Dioxide Level 27.5 Anion Gap 8 Estimat Glomerular Filtration Rate 114 Date/Time Source Procedure Growth Status 09/15/17 19:49 Blood Peripheral Aerobic Blood Culture - Preliminary NO GROWTH IN 2 DAYS Resulted 09/15/17 19:49 Blood Peripheral Anaerobic Blood Culture - Preliminary NO GROWTH IN 2 DAYS Resulted 09/10/17 17:50 Stool Stool Stool Occult Blood (TARAN) - Final HEMOCCULT POSITIVE Complete 09/09/17 19:00 Sputum Endotracheal Gram Stain - Final Complete 09/09/17 19:00 Sputum Endotracheal Sputum Culture - Final RARE GROWTH NORMAL RESPIRATORY MAXIM Complete 09/15/17 20:48 Urine Catheterized Urine Urine Culture - Final NO GROWTH IN 48 HOURS. Complete Radiology Last Impressions Chest X-Ray 09/13/17 0600 Signed Impressions: Service Date/Time: Wednesday, September 13, 2017 05:03 - CONCLUSION: No significant change Juan Rivera MD Abdomen X-Ray 09/13/17 0600 Signed Impressions: Service Date/Time: Wednesday, September 13, 2017 05:08 - CONCLUSION: No significant change Juan Rivera MD Abdomen/Pelvis CT 09/09/17 0000 Signed Impressions: Service Date/Time: Saturday, September 09, 2017 16:36 - CONCLUSION: 1. New bilateral pleural effusions and consolidation in both posterior lung bases left greater than right with air bronchograms. 2. Abnormal bowel gas pattern most consistent with an ileus. 3. Bilateral percutaneous drainage catheters in place. 4. Cardiomegaly. Patient is status post median sternotomy. Armen Rodriguez MD Chest CT 09/01/17 0000 Signed Impressions: Service Date/Time: August 07:15 - CONCLUSION: No acute CT findings of the chest Juan Rivera MD Cardiovascular: Regular Lungs: Clear Abdomen: Post-op tenderness Narrative Exam alexi clear drainage Having bowel movements Tolerating tube feeds at 40 cc A/P Problem List: (1) Anemia ICD Codes: D64.9 - Anemia, unspecified Status: Acute (2) Status post exploratory laparotomy ICD Codes: Z98.890 - Other specified postprocedural states Status: Acute (3) Duodenal ulcer perforation ICD Codes: K26.5 - Chronic or unspecified duodenal ulcer with perforation Status: Chronic (4) Duodenal ulcer with perforation ICD Codes: K26.5 - Chronic or unspecified duodenal ulcer with perforation Status: Chronic (5) H/O hypertrophic cardiomyopathy ICD Codes: Z86.79 - Personal history of other diseases of the circulatory system Status: Chronic (6) Perforation of duodenal ulcer ICD Codes: K26.5 - Chronic or unspecified duodenal ulcer with perforation Status: Acute (7) AICD (automatic cardioverter/defibrillator) present ICD Codes: Z95.810 - AICD (automatic cardioverter/defibrillator) present Status: Chronic (8) S/P MVR (mitral valve replacement) ICD Codes: Z95.4 - S/P MVR (mitral valve replacement) Status: Chronic Permanent Comment: Need prophyllaxis - Due to endocarditis Last Edited By: Ozzy Edwards on May 26, 2014 13:06 (9) H/O mitral valve replacement with mechanical valve ICD Codes: Z95.2 - Presence of prosthetic heart valve Status: Chronic (10) Chronic anticoagulation ICD Codes: Z79.01 - nursing home (current) use of anticoagulants Status: Chronic Assessment and Plan 41-year-old gentleman with a heart valve perforated duodenal ulcer requiring Jay patch Patient doing very well Increase diet Increase activities Change Protonix by mouth Recheck H&H's slight downward trend in the last few days Attending Statement NOTE FOR SURGICAL ATTENDING, DR. JOEL WATSON I attest that I had a [id number] encounter with the patient on the same day, and personally performed and documented my assessment and findings in the medical record. The following services were provided during this hospital visit: Chart data review, vital sign assessments/reviewing monitor data Review of consultations notes if present. Medication orders/review and/or management Ordering and/or reviewing lab tests Ordering and/or interpreting/reviewing x-rays and/or diagnostic studies Care of the patient and discussion of the patient with the care team Documentation time To help prompt me to consider important information that might be impacting today's encounter and assessment, information from prior notes written by myself or my colleagues may have been "brought forward/copy and pasted" into today's note. Problem Qualifiers (1) Anemia: Qualified Codes: D62 - Acute posthemorrhagic anemia Joel Watson MD Sep 17, 2017 14:47
--- NOTE | 2017-09-17 16:09 | HHI.PR ---
Subjective Remarks Seen in his bedroom, he has diagnosis of Perforated duodenal ulcer with massive contamination followed by ID specialist, had Sepsis with Bandemia, status post VDRF, Ileus resolved, on Zosyn General Surgery following. status post duodenal Jay patch. no nausea, vomit or diarrhea Objective Vital Signs Date Time Temp Pulse Resp B/P (MAP) Pulse Ox O2 Delivery O2 Flow Rate FiO2 09/17/17 12:00 98.0 99 17 139/80 (99) 97 09/17/17 08:00 97.6 94 18 160/78 (105) 94 09/17/17 04:30 98.5 100 19 150/87 (108) 94 09/17/17 04:10 147 09/17/17 03:50 92 09/16/17 23:44 88 09/16/17 23:35 98.3 87 18 146/78 (100) 95 09/16/17 21:40 Room Air 09/16/17 20:00 98.0 112 18 123/85 (98) 97 I/O 09/16/17 09/16/17 09/16/17 09/17/17 09/17/17 09/17/17 06:59 14:59 22:59 06:59 14:59 22:59 Intake Total 120 ml 689.3 ml Output Total 520 ml 920 ml Balance -400 ml -230.7 ml Intake Oral 120 ml 480 ml IV Total 209.3 ml Output Urine Total 500 ml 900 ml Drainage Total 20 ml 20 ml # Voids 3 # Bowel Movements 1 1 Result Diagram: 09/17/17 0152 09/17/17 0152 Imaging Last Impressions Chest X-Ray 09/16/17 06 Signed Impressions: Service Date/Time: Saturday, September 16, 2017 06:08 - CONCLUSION: Endotracheal tube , nasogastric tube, and right subclavian central venous catheter no longer seen. Persistent left lower lobe atelectasis versus consolidation and mild right lung base hazy opacity. Uvaldo Brown MD Catheter Change 09/14/17 0000 Signed Impressions: Service Date/Time: Thursday, September 14, 2017 13:49 - CONCLUSION: Uncomplicated tube exchange as above. Albert Lozada MD Abdomen X-Ray 09/13/17 0600 Signed Impressions: Service Date/Time: Wednesday, September 13, 2017 05:08 - CONCLUSION: No significant change Juan Rivera MD Abdomen/Pelvis CT 09/09/17 0000 Signed Impressions: Service Date/Time: Saturday, September 09, 2017 16:36 - CONCLUSION: 1. New bilateral pleural effusions and consolidation in both posterior lung bases left greater than right with air bronchograms. 2. Abnormal bowel gas pattern most consistent with an ileus. 3. Bilateral percutaneous drainage catheters in place. 4. Cardiomegaly. Patient is status post median sternotomy. Armen Rodriguez MD Chest CT 09/01/17 0000 Signed Impressions: Service Date/Time: August 07:15 - CONCLUSION: No acute CT findings of the chest Juan Rivera MD Procedures EGD Jay patch Endotracheal intubation and extubation Other Results Laboratory Tests Test 09/01/17 06:00 09/02/17 02:25 09/03/17 00:27 09/03/17 04:00 Tear Drop Cells 1+ Ovalocytes 1+ Myelocytes 1 % Toxic Vacuolation PRESENT Polychromasia 3.9 % [place] Cells 1+ Acanthocytes OCC Keratocytes OCC Hemoglobin A1c 5.0 % Free Thyroxine 0.79 NG/DL Thyroid Stimulating Hormone 3rd Gen 2.370 uIU/ML Basophilic Stippling FAINT Troponin I 0.27 NG/ML Metamyelocytes 8 % Test 09/03/17 18:50 09/03/17 19:15 09/04/17 04:00 09/05/17 04:37 Fibrinogen 652 mg/dL Blood Smear Pathologist Review Protein Corrected Calcium 8.6 MG/DL Blood Gas Puncture Site RADHA Blood Gas Patient Temperature 98.6 Blood Gas HCO3 22 mmol/L Blood Gas Base Excess -2.4 mmol/L Blood Gas Oxygen Saturation 97 % Arterial Blood pH 7.35 Arterial Blood Partial Pressure CO2 42 mmHg Arterial Blood Partial Pressure O2 122 mmHg Arterial Blood Oxygen Content 12.5 Vol % Arterial Blood Carboxyhemoglobin 1.3 % Arterial Blood Methemoglobin 0.5 % Blood Gas Hemoglobin 9.0 G/DL Oxygen Delivery Device VENTILATOR Blood Gas Ventilator Setting AC/16/600/PEEP 5 Blood Gas Inspired Oxygen 65 % Test 09/06/17 01:50 09/07/17 06:00 09/07/17 16:20 09/08/17 04:55 Dohle Bodies PRESENT Red Cell Morphology Comment NORMAL Prothrombin Time 12.7 SEC Prothromb Time International Ratio 1.3 RATIO Urine Squamous Epithelial Cells <1 /hpf Differential Total Cells Counted 100 Neutrophils % (Manual) 87 % Band Neutrophils % 2 % Lymphocytes % 3 % Monocytes % 6 % Eosinophils % 2 % Neutrophils # (Manual) 13.2 TH/MM3 Nucleated Red Blood Cells 2 /100 WBC Test 09/10/17 04:05 09/10/17 17:50 09/13/17 05:00 09/15/17 20:48 Total Creatine Kinase 65 U/L Amylase Level 66 U/L Lipase 405 U/L Stool C. difficile Toxin (PCR) NEGATIVE Stl C. difficile Toxin Epiderm 027 PRESUMPTIVE NEGATIVE Blood Urea Nitrogen 15 MG/DL Creatinine 0.75 MG/DL Random Glucose 106 MG/DL Total Protein 5.4 GM/DL Albumin 1.7 GM/DL Calcium Level 7.9 MG/DL Phosphorus Level 3.1 MG/DL Magnesium Level 1.7 MG/DL Alkaline Phosphatase 74 U/L Aspartate Amino Transf (AST/SGOT) 37 U/L Alanine Aminotransferase (ALT/SGPT) 26 U/L Total Bilirubin 0.3 MG/DL Direct Bilirubin 0.1 MG/DL Sodium Level 145 MEQ/L Potassium Level 3.7 MEQ/L Chloride Level 112 MEQ/L Carbon Dioxide Level 27.0 MEQ/L Indirect Bilirubin 0.2 MG/DL Urine Color YELLOW Urine Turbidity HAZY Urine pH 6.0 Urine Specific [place] 1.029 Urine Protein 30 mg/dL Urine Glucose (UA) NEG mg/dL Urine Ketones NEG mg/dL Urine Occult Blood MOD Urine Nitrite NEG Urine Bilirubin NEG Urine Urobilinogen 4.0 MG/DL Urine Leukocyte Esterase TRACE Urine RBC 158 /hpf Urine WBC 6 /hpf Urine Amorphous Sediment RARE Urine Bacteria MOD /hpf Urine Hyaline Casts 4 /lpf Urine Mucus MANY /lpf Microscopic Urinalysis Comment CATH-CULTURE IND Test 09/17/17 01:52 09/17/17 05:29 White Blood Count 14.2 TH/MM3 Red Blood Count 2.62 MIL/MM3 Hemoglobin 8.2 GM/DL Hematocrit 22.8 % Mean Corpuscular Volume 87.2 FL Mean Corpuscular Hemoglobin 31.5 PG Mean Corpuscular Hemoglobin Concent 36.1 % Red Cell Distribution Width 18.7 % Platelet Count 571 TH/MM3 Mean Platelet Volume 7.1 FL Neutrophils (%) (Auto) 77.8 % Lymphocytes (%) (Auto) 13.5 % Monocytes (%) (Auto) 6.4 % Eosinophils (%) (Auto) 1.4 % Basophils (%) (Auto) 0.9 % Neutrophils # (Auto) 11.1 TH/MM3 Lymphocytes # (Auto) 1.9 TH/MM3 Monocytes # (Auto) 0.9 TH/MM3 Eosinophils # (Auto) 0.2 TH/MM3 Basophils # (Auto) 0.1 TH/MM3 CBC Comment AUTO DIFF Differential Comment AUTO DIFF CONFIRMED Platelet Estimate HIGH Platelet Morphology Comment NORMAL Blood Urea Nitrogen 10 MG/DL Creatinine 0.76 MG/DL Random Glucose 115 MG/DL Total Protein 5.9 GM/DL Albumin 2.2 GM/DL Calcium Level 7.9 MG/DL Phosphorus Level 3.0 MG/DL Magnesium Level 2.1 MG/DL Alkaline Phosphatase 70 U/L Aspartate Amino Transf (AST/SGOT) 26 U/L Alanine Aminotransferase (ALT/SGPT) 24 U/L Total Bilirubin 0.4 MG/DL Sodium Level 139 MEQ/L Potassium Level 3.5 MEQ/L Chloride Level 104 MEQ/L Carbon Dioxide Level 27.5 MEQ/L Anion Gap 8 MEQ/L Estimat Glomerular Filtration Rate 114 ML/MIN Activated Partial Thromboplast Time 63.2 SEC Objective Remarks AAOx3 NAD Lungs clear to auscultation bilaterally. S1-S2 present with RRR and a systolic 2/6 murmur, tachycardic. Abdomen soft, mildly tender to palpation, mild distention. Medications and IVs Current Medications Medications (Trade) Dose Ordered Sig/Khushboo Route Start Time Stop Time Status Last Admin (NS Flush) 2 ml UNSCH PRN IV FLUSH 09/01/17 09:30 (NS Flush) 2 ml BID IV FLUSH 09/01/17 21:00 09/17/17 09:23 (Zofran Inj) 4 mg Q6H PRN IVP 09/01/17 09:30 09/14/17 22:08 (Milk Of Magnesia Liq) 30 ml Q12H PRN PO 09/01/17 09:30 09/07/17 09:24 (Dulcolax Supp) 10 mg DAILY PRN RECTAL 09/01/17 09:30 09/08/17 08:51 Miscellaneous Information 1 DAILY T-DERMAL 09/02/17 09:00 09/17/17 09:00 (Habitrol 14 Mg Patch.24 Hr) 1 patch DAILY T-DERMAL 09/02/17 09:00 09/17/17 09:23 (Abilify) 5 mg BID PO 09/01/17 21:00 09/17/17 09:22 (Cymbalta Dr) 30 mg DAILY PO 09/01/17 11:45 09/17/17 09:22 (KlonoPIN) 0.5 mg Q8HR PRN PO 09/01/17 20:45 09/17/17 13:35 (Heparin Inj) 5,000 units UNSCH PRN IV PUSH 09/04/17 20:30 (Heparin Inj) 2,500 units UNSCH PRN IV PUSH 09/04/17 20:30 09/16/17 15:16 Heparin Sodium/ Dextrose 250 ml @ 9 mls/hr TITRATE PRN IV 09/04/17 14:30 09/17/17 11:46 (Tylenol 650 Mg/ 20 ml Liq) 650 mg Q6H PRN NG 09/07/17 14:30 09/09/17 12:39 (Tears Naturale Opth Soln) 1 drop Q8HR EACH EYE 09/07/17 22:00 09/17/17 14:03 (Ees 200 Mg/5 ml Liq) 200 mg Q8HR PO 09/08/17 08:15 09/17/17 14:02 (Albuterol Neb) 2.5 mg Q2HR NEB PRN NEB 09/09/17 13:30 (Melatonin) 5 mg HS PRN PO 09/13/17 21:00 09/17/17 00:41 Piperacillin Sod/ Tazobactam Sod 50 ml @ 100 mls/hr Q6H IV 09/15/17 21:00 09/17/17 16:00 (Protonix) 40 mg BID PO 09/16/17 21:00 09/17/17 09:22 ([place] 5-325 Mg) 1 tab Q6H PRN PO 09/16/17 13:15 09/17/17 13:35 (Colace Liq) 100 mg Q12HR PRN PO 09/16/17 13:15 (Lopressor) 25 mg Q12HR PO 09/16/17 21:00 09/17/17 09:22 (Theragran Hematinic) 1 tab DAILY PO 09/18/17 09:00 A/P Assessment and Plan (1) S/P MVR (mitral valve replacement) ICD Code: Z95.4 - S/P MVR (mitral valve replacement) Status: Chronic Permanent Comment: Need prophylaxis - Due to endocarditis (2) AICD (automatic cardioverter/defibrillator) present ICD Code: Z95.810 - AICD (automatic cardioverter/defibrillator) present Status: Chronic (3) History of endocarditis ICD Code: Z86.79 - History of endocarditis Status: Acute (4) Anxiety and depression ICD Code: F41.8 - Anxiety and depression Status: Acute (5) Tobacco abuse ICD Code: Z72.0 - Tobacco abuse Status: Acute (6) Anemia ICD Code: D64.9 - Anemia, unspecified Status: Acute (7) GI bleed ICD Code: K92.2 - Gastrointestinal hemorrhage, unspecified Status: Acute (8) Hypertrophic cardiomyopathy ICD Code: I42.2 - Hypertrophic cardiomyopathy Status: Acute 1. Depression: On duloxetine, Clonazepam and Aripiprazole 2. History of mechanical mitral valve replacement [facility] bileaflet for previous endocarditis 2000, History of hypertrophic Cardiomyopathy, status post septal myomectomy History of AICD 2013 hypertension and V tach, Echocardiogram EF 60%, On hold Warfarin and awaiting clearance by General Surgery to re start medicine 3. VDRF Improved. continue bronchodilator, Mucolytic and incentive spirometry. 4. Tobacco dependence strongly recommended to stop smoking. c 5. Hypokalemia replaced and following 6. Acute blood loss anemia hemoglobin now 8.9, status post transfusion of six units of PRBCs and 4 of FFP during this hospitalization 7. Severe Sepsis was on Zosyn/Tazobactam and fluconazole, complete 4/2 by ID specialist, blood cultures, urine culture and C Diff negative Prophylaxis -GI -pantoprazole -DVT -SCD/heparin drip Discharge Planning Once cleared by specialists. Asael Ryder MD Sep 17, 2017 16:09
[2017-09-18] VITALS (9 sets, daily range): BP systolic 127–159; BP diastolic 80–92; PULSE 81–104; RESP 17–20; TEMP 97.5–98.2; O2SAT 96–98
[2017-09-18] MEDS: HEPARIN-D5W 25,000 U/250 ML 250 ML IV PRN ×3 (00:02→23:38)
[2017-09-18] MEDS: PIPERACIL-TAZO 3.375 GM PREMIX 50 ML IV SCH ×4 (03:15→20:26)
[2017-09-18] MEDS: ARTIFICIAL TEARS OPTH SOLN 15 ML BTL EACH EYE SCH ×3 (04:44→21:12)
[2017-09-18] MEDS: ERYTHROMYCIN ETHYLSUCCINATE 200 MG/5 ML SUSP 100 ML BOTTLE PO SCH ×3 (04:44→21:16)
[2017-09-18 05:07] LABS: HEMATOCRIT 26.5 % (39.0-51.0); HEMOGLOBIN 8.9 GM/DL (13.0-17.0); MEAN CORPUSCULAR HEMOGLOBIN 29.9 PG (27.0-34.0); MEAN CORPUSCULAR HGB CONC 33.6 % (32.0-36.0); MEAN PLATELET VOLUME 6.8 FL (7.0-11.0); PLATELET COUNT 685 TH/MM3 (150-450); RED BLOOD COUNT 2.97 MIL/MM3 (4.50-5.90); WHITE BLOOD COUNT 13.8 TH/MM3 (4.0-11.0)
[2017-09-18 08:38] LABS: BICARBONATE 25.2 MEQ/L (21.0-32.0); CALCIUM 8.5 MG/DL (8.5-10.1); CREATININE 0.88 MG/DL (0.60-1.30)
[2017-09-18] MEDS: MULTIVITAMIN HEMATINIC THERAPEUTIC TAB PO SCH (09:00)
[2017-09-18] MEDS: REMOVE OLD PATCH T-DERMAL SCH (09:00)
[2017-09-18] MEDS: METOPROLOL TARTRATE 25 MG TAB PO SCH ×2 (09:23→20:25)
[2017-09-18] MEDS: NICOTINE 14 MG/24 HR PATCH T-DERMAL SCH (09:23)
[2017-09-18] MEDS: ARIPiprazole 5 MG TAB PO SCH ×2 (09:23→20:25)
[2017-09-18] MEDS: DULoxetine HCl DR 30 MG CAP PO SCH (09:23)
[2017-09-18] MEDS: PANTOPRAZOLE SOD 40 MG DELAYED RELEASE TAB PO SCH ×2 (09:23→20:25)
[2017-09-18] MEDS: SODIUM CHLORIDE 0.9% FLUSH 10 ML FLUSH IV FLUSH SCH ×2 (09:24→21:00)
[2017-09-18] MEDS: ACETAMINOPHEN/HYDROcodone 325 MG/5 MG TAB PO PRN ×2 (09:30→20:26)
[2017-09-18] MEDS: clonazePAM 0.5 MG TAB PO PRN ×2 (09:30→20:26)
--- NOTE | 2017-09-18 09:52 | HHI.PR ---
Subjective Subjective Notes no acute issues, wbc 13.8, no fevers, pain controlled Objective Vitals/I&O Vital Signs Date Time Temp Pulse Resp B/P (MAP) Pulse Ox O2 Delivery O2 Flow Rate FiO2 09/18/17 08:02 97.8 103 17 159/85 (109) 96 09/16/17 21:40 Room Air 09/15/17 20:00 2.00 Labs Laboratory Tests Test 09/18/17 04:55 09/18/17 06:26 White Blood Count 13.8 Red Blood Count 2.97 Hemoglobin 8.9 Hematocrit 26.5 Mean Corpuscular Volume 89.0 Mean Corpuscular Hemoglobin 29.9 Mean Corpuscular Hemoglobin Concent 33.6 Red Cell Distribution Width 19.0 Platelet Count 685 Mean Platelet Volume 6.8 Activated Partial Thromboplast Time 61.0 Blood Urea Nitrogen 8 Creatinine 0.88 Random Glucose 86 Calcium Level 8.5 Sodium Level 142 Potassium Level 2.7 Chloride Level 106 Carbon Dioxide Level 25.2 Anion Gap 11 Estimat Glomerular Filtration Rate 96 Date/Time Source Procedure Growth Status 09/15/17 19:49 Blood Peripheral Aerobic Blood Culture - Preliminary NO GROWTH IN 2 DAYS Resulted 09/15/17 19:49 Blood Peripheral Anaerobic Blood Culture - Preliminary NO GROWTH IN 2 DAYS Resulted 09/10/17 17:50 Stool Stool Stool Occult Blood (TARAN) - Final HEMOCCULT POSITIVE Complete 09/09/17 19:00 Sputum Endotracheal Gram Stain - Final Complete 09/09/17 19:00 Sputum Endotracheal Sputum Culture - Final RARE GROWTH NORMAL RESPIRATORY MAXIM Complete 09/15/17 20:48 Urine Catheterized Urine Urine Culture - Final NO GROWTH IN 48 HOURS. Complete Radiology Last Impressions Chest X-Ray 09/13/17 0600 Signed Impressions: Service Date/Time: Wednesday, September 13, 2017 05:03 - CONCLUSION: No significant change Juan Rivera MD Abdomen X-Ray 09/13/17 0600 Signed Impressions: Service Date/Time: Wednesday, September 13, 2017 05:08 - CONCLUSION: No significant change Juan Rivera MD Abdomen/Pelvis CT 09/09/17 0000 Signed Impressions: Service Date/Time: Saturday, September 09, 2017 16:36 - CONCLUSION: 1. New bilateral pleural effusions and consolidation in both posterior lung bases left greater than right with air bronchograms. 2. Abnormal bowel gas pattern most consistent with an ileus. 3. Bilateral percutaneous drainage catheters in place. 4. Cardiomegaly. Patient is status post median sternotomy. Armen Rodriguez MD Chest CT 09/01/17 0000 Signed Impressions: Service Date/Time: August 07:15 - CONCLUSION: No acute CT findings of the chest Juan Rivera MD Abdomen: Other (incision c/d/i, alexi serous, j tube c/d/i) A/P Problem List: (1) Anemia ICD Codes: D64.9 - Anemia, unspecified Status: Acute (2) Status post exploratory laparotomy ICD Codes: Z98.890 - Other specified postprocedural states Status: Acute (3) Duodenal ulcer perforation ICD Codes: K26.5 - Chronic or unspecified duodenal ulcer with perforation Status: Chronic (4) Duodenal ulcer with perforation ICD Codes: K26.5 - Chronic or unspecified duodenal ulcer with perforation Status: Chronic (5) H/O hypertrophic cardiomyopathy ICD Codes: Z86.79 - Personal history of other diseases of the circulatory system Status: Chronic (6) Perforation of duodenal ulcer ICD Codes: K26.5 - Chronic or unspecified duodenal ulcer with perforation Status: Acute (7) AICD (automatic cardioverter/defibrillator) present ICD Codes: Z95.810 - AICD (automatic cardioverter/defibrillator) present Status: Chronic (8) S/P MVR (mitral valve replacement) ICD Codes: Z95.4 - S/P MVR (mitral valve replacement) Status: Chronic Permanent Comment: Need prophyllaxis - Due to endocarditis Last Edited By: Ozzy Edwards on May 26, 2014 13:06 (9) H/O mitral valve replacement with mechanical valve ICD Codes: Z95.2 - Presence of prosthetic heart valve Status: Chronic (10) Chronic anticoagulation ICD Codes: Z79.01 - terminal supervisor (current) use of anticoagulants Status: Chronic Assessment and Plan 41-year-old gentleman with a heart valve perforated duodenal ulcer requiring Jay patch plan reg diet oob alexi sxn ok to shower ok to transition to coumadin if ok with primary po ppi wbc slight trend down Problem Qualifiers (1) Anemia: Qualified Codes: D62 - Acute posthemorrhagic anemia Hill Jones MD Sep 18, 2017 09:52
[2017-09-18] MEDS ORDERED: POTASSIUM CHLORIDE 20 MEQ CONTROLLED RELEASE TAB PO ONE ×4 (10:45→21:00)
[2017-09-18 12:46] LABS: MAGNESIUM 1.7 MG/DL (1.5-2.5); PHOSPHORUS 4.2 MG/DL (2.5-4.9)
--- NOTE | 2017-09-18 17:30 | HHI.PR ---
Subjective Remarks Seen in his bedroom, he has diagnosis of Perforated duodenal ulcer with massive contamination followed by ID specialist, had Sepsis with Bandemia, status post VDRF, Ileus resolved, on Zosyn General Surgery following. status post duodenal Jay patch. 09/18: Stable no complaint, discussed with nurse miss Suárez and MDR. No nausea , vomit. Improving diarrhea. Objective Vital Signs Date Time Temp Pulse Resp B/P (MAP) Pulse Ox O2 Delivery O2 Flow Rate FiO2 09/18/17 15:50 98.2 96 17 147/80 (102) 97 09/18/17 12:25 97.7 87 18 127/83 (98) 97 09/18/17 11:06 87 09/18/17 08:02 97.8 103 17 159/85 (109) 96 09/18/17 04:00 97.5 91 20 143/89 (107) 96 09/18/17 00:00 97.7 89 20 131/81 (98) 96 09/17/17 20:00 97.8 100 21 146/82 (103) 95 I/O 09/17/17 09/17/17 09/17/17 09/18/17 09/18/17 09/18/17 07:00 15:00 23:00 07:00 15:00 23:00 Intake Total 689.3 ml 1128 ml 240 ml 908 ml 650 ml 210 ml Output Total 920 ml 10 ml 405 ml Balance -230.7 ml 1128 ml 230 ml 503 ml 650 ml 210 ml Intake Oral 480 ml 960 ml 500 ml 600 ml IV Total 209.3 ml 168 ml 240 ml 408 ml 50 ml 210 ml Output Urine Total 900 ml 400 ml Drainage Total 20 ml 10 ml 5 ml # Voids 3 3 1 3 # Bowel Movements 1 3 1 3 Result Diagram: 09/18/17 0455 09/18/17 1610 Imaging Last Impressions Chest X-Ray 09/16/17 0600 Signed Impressions: Service Date/Time: Saturday, September 16, 2017 06:08 - CONCLUSION: Endotracheal tube , nasogastric tube, and right subclavian central venous catheter no longer seen. Persistent left lower lobe atelectasis versus consolidation and mild right lung base hazy opacity. Uvaldo Brown MD Catheter Change 09/14/17 0000 Signed Impressions: Service Date/Time: Thursday, September 14, 2017 13:49 - CONCLUSION: Uncomplicated tube exchange as above. Albert Lozada MD Abdomen X-Ray 09/13/17 0600 Signed Impressions: Service Date/Time: Wednesday, September 13, 2017 05:08 - CONCLUSION: No significant change Juan Rivera MD Abdomen/Pelvis CT 09/09/17 0000 Signed Impressions: Service Date/Time: Saturday, September 09, 2017 16:36 - CONCLUSION: 1. New bilateral pleural effusions and consolidation in both posterior lung bases left greater than right with air bronchograms. 2. Abnormal bowel gas pattern most consistent with an ileus. 3. Bilateral percutaneous drainage catheters in place. 4. Cardiomegaly. Patient is status post median sternotomy. Armen Rodriguez MD Chest CT 09/01/17 0000 Signed Impressions: Service Date/Time: August 07:15 - CONCLUSION: No acute CT findings of the chest Juan Rievra MD Procedures EGD Jay patch Endotracheal intubation and extubation Other Results Laboratory Tests Test 09/01/17 06:00 09/02/17 02:25 09/03/17 00:27 09/03/17 04:00 Tear Drop Cells 1+ Ovalocytes 1+ Myelocytes 1 % Toxic Vacuolation PRESENT Polychromasia 3.9 % [place] Cells 1+ Acanthocytes OCC Keratocytes OCC Hemoglobin A1c 5.0 % Free Thyroxine 0.79 NG/DL Thyroid Stimulating Hormone 3rd Gen 2.370 uIU/ML Basophilic Stippling FAINT Troponin I 0.27 NG/ML Metamyelocytes 8 % Test 09/03/17 18:50 09/03/17 19:15 09/04/17 04:00 09/05/17 04:37 Fibrinogen 652 mg/dL Blood Smear Pathologist Review Protein Corrected Calcium 8.6 MG/DL Blood Gas Puncture Site RADHA Blood Gas Patient Temperature 98.6 Blood Gas HCO3 22 mmol/L Blood Gas Base Excess -2.4 mmol/L Blood Gas Oxygen Saturation 97 % Arterial Blood pH 7.35 Arterial Blood Partial Pressure CO2 42 mmHg Arterial Blood Partial Pressure O2 122 mmHg Arterial Blood Oxygen Content 12.5 Vol % Arterial Blood Carboxyhemoglobin 1.3 % Arterial Blood Methemoglobin 0.5 % Blood Gas Hemoglobin 9.0 G/DL Oxygen Delivery Device VENTILATOR Blood Gas Ventilator Setting AC/16/600/PEEP 5 Blood Gas Inspired Oxygen 65 % Test 09/06/17 01:50 09/07/17 06:00 09/07/17 16:20 09/08/17 04:55 Dohle Bodies PRESENT Red Cell Morphology Comment NORMAL Prothrombin Time 12.7 SEC Prothromb Time International Ratio 1.3 RATIO Urine Squamous Epithelial Cells <1 /hpf Differential Total Cells Counted 100 Neutrophils % (Manual) 87 % Band Neutrophils % 2 % Lymphocytes % 3 % Monocytes % 6 % Eosinophils % 2 % Neutrophils # (Manual) 13.2 TH/MM3 Nucleated Red Blood Cells 2 /100 WBC Test 09/10/17 04:05 09/10/17 17:50 09/13/17 05:00 09/15/17 20:48 Total Creatine Kinase 65 U/L Amylase Level 66 U/L Lipase 405 U/L Stool C. difficile Toxin (PCR) NEGATIVE Stl C. difficile Toxin Epiderm 027 PRESUMPTIVE NEGATIVE Blood Urea Nitrogen 15 MG/DL Creatinine 0.75 MG/DL Random Glucose 106 MG/DL Total Protein 5.4 GM/DL Albumin 1.7 GM/DL Calcium Level 7.9 MG/DL Phosphorus Level 3.1 MG/DL Magnesium Level 1.7 MG/DL Alkaline Phosphatase 74 U/L Aspartate Amino Transf (AST/SGOT) 37 U/L Alanine Aminotransferase (ALT/SGPT) 26 U/L Total Bilirubin 0.3 MG/DL Direct Bilirubin 0.1 MG/DL Sodium Level 145 MEQ/L Potassium Level 3.7 MEQ/L Chloride Level 112 MEQ/L Carbon Dioxide Level 27.0 MEQ/L Indirect Bilirubin 0.2 MG/DL Urine Color YELLOW Urine Turbidity HAZY Urine pH 6.0 Urine Specific [place] 1.029 Urine Protein 30 mg/dL Urine Glucose (UA) NEG mg/dL Urine Ketones NEG mg/dL Urine Occult Blood MOD Urine Nitrite NEG Urine Bilirubin NEG Urine Urobilinogen 4.0 MG/DL Urine Leukocyte Esterase TRACE Urine RBC 158 /hpf Urine WBC 6 /hpf Urine Amorphous Sediment RARE Urine Bacteria MOD /hpf Urine Hyaline Casts 4 /lpf Urine Mucus MANY /lpf Microscopic Urinalysis Comment CATH-CULTURE IND Test 09/17/17 01:52 09/18/17 04:55 09/18/17 06:26 09/18/17 10:58 Neutrophils (%) (Auto) 77.8 % Lymphocytes (%) (Auto) 13.5 % Monocytes (%) (Auto) 6.4 % Eosinophils (%) (Auto) 1.4 % Basophils (%) (Auto) 0.9 % Neutrophils # (Auto) 11.1 TH/MM3 Lymphocytes # (Auto) 1.9 TH/MM3 Monocytes # (Auto) 0.9 TH/MM3 Eosinophils # (Auto) 0.2 TH/MM3 Basophils # (Auto) 0.1 TH/MM3 CBC Comment AUTO DIFF Differential Comment AUTO DIFF CONFIRMED Platelet Estimate HIGH Platelet Morphology Comment NORMAL Blood Urea Nitrogen 10 MG/DL 8 MG/DL Creatinine 0.76 MG/DL 0.88 MG/DL Random Glucose 115 MG/DL 86 MG/DL Total Protein 5.9 GM/DL Albumin 2.2 GM/DL Calcium Level 7.9 MG/DL 8.5 MG/DL Phosphorus Level 3.0 MG/DL 4.2 MG/DL Magnesium Level 2.1 MG/DL 1.7 MG/DL Alkaline Phosphatase 70 U/L Aspartate Amino Transf (AST/SGOT) 26 U/L Alanine Aminotransferase (ALT/SGPT) 24 U/L Total Bilirubin 0.4 MG/DL Sodium Level 139 MEQ/L 142 MEQ/L Potassium Level 3.5 MEQ/L 2.7 MEQ/L Chloride Level 104 MEQ/L 106 MEQ/L Carbon Dioxide Level 27.5 MEQ/L 25.2 MEQ/L White Blood Count 13.8 TH/MM3 Red Blood Count 2.97 MIL/MM3 Hemoglobin 8.9 GM/DL Hematocrit 26.5 % Mean Corpuscular Volume 89.0 FL Mean Corpuscular Hemoglobin 29.9 PG Mean Corpuscular Hemoglobin Concent 33.6 % Red Cell Distribution Width 19.0 % Platelet Count 685 TH/MM3 Mean Platelet Volume 6.8 FL Activated Partial Thromboplast Time 61.0 SEC Anion Gap 11 MEQ/L Estimat Glomerular Filtration Rate 96 ML/MIN Test 09/18/17 16:10 Potassium Level 3.4 MEQ/L Objective Remarks AAOx3 NAD Lungs clear to auscultation bilaterally. S1-S2 present with RRR and a systolic 2/6 murmur, tachycardic. Abdomen soft, mildly tender to palpation, mild distention. Medications and IVs Current Medications Medications (Trade) Dose Ordered Sig/Khushboo Route Start Time Stop Time Status Last Admin (NS Flush) 2 ml UNSCH PRN IV FLUSH 09/01/17 09:30 (NS Flush) 2 ml BID IV FLUSH 09/01/17 21:00 09/18/17 09:24 (Zofran Inj) 4 mg Q6H PRN IVP 09/01/17 09:30 09/14/17 22:08 (Milk Of Magnesia Liq) 30 ml Q12H PRN PO 09/01/17 09:30 09/07/17 09:24 (Dulcolax Supp) 10 mg DAILY PRN RECTAL 09/01/17 09:30 09/08/17 08:51 Miscellaneous Information 1 DAILY T-DERMAL 09/02/17 09:00 09/18/17 09:00 (Habitrol 14 Mg Patch.24 Hr) 1 patch DAILY T-DERMAL 09/02/17 09:00 09/18/17 09:23 (Abilify) 5 mg BID PO 09/01/17 21:00 09/18/17 09:23 (Cymbalta Dr) 30 mg DAILY PO 09/01/17 11:45 09/18/17 09:23 (KlonoPIN) 0.5 mg Q8HR PRN PO 09/01/17 20:45 09/18/17 09:30 (Heparin Inj) 5,000 units UNSCH PRN IV PUSH 09/04/17 20:30 (Heparin Inj) 2,500 units UNSCH PRN IV PUSH 09/04/17 20:30 09/16/17 15:16 Heparin Sodium/ Dextrose 250 ml @ 9 mls/hr TITRATE PRN IV 09/04/17 14:30 09/18/17 11:40 (Tylenol 650 Mg/ 20 ml Liq) 650 mg Q6H PRN NG 09/07/17 14:30 09/09/17 12:39 (Tears Naturale Opth Soln) 1 drop Q8HR EACH EYE 09/07/17 22:00 09/18/17 04:44 (Ees 200 Mg/5 ml Liq) 200 mg Q8HR PO 09/08/17 08:15 09/18/17 13:16 (Albuterol Neb) 2.5 mg Q2HR NEB PRN NEB 09/09/17 13:30 (Melatonin) 5 mg HS PRN PO 09/13/17 21:00 09/17/17 00:41 Piperacillin Sod/ Tazobactam Sod 50 ml @ 100 mls/hr Q6H IV 09/15/17 21:00 09/18/17 16:02 (Protonix) 40 mg BID PO 09/16/17 21:00 09/18/17 09:23 ([place] 5-325 Mg) 1 tab Q6H PRN PO 09/16/17 13:15 09/18/17 09:30 (Colace Liq) 100 mg Q12HR PRN PO 09/16/17 13:15 (Lopressor) 25 mg Q12HR PO 09/16/17 21:00 09/18/17 09:23 (Theragran Hematinic) 1 tab DAILY PO 09/18/17 09:00 09/18/17 09:00 A/P Assessment and Plan (1) S/P MVR (mitral valve replacement) ICD Code: Z95.4 - S/P MVR (mitral valve replacement) Status: Chronic Permanent Comment: Need prophylaxis - Due to endocarditis (2) AICD (automatic cardioverter/defibrillator) present ICD Code: Z95.810 - AICD (automatic cardioverter/defibrillator) present Status: Chronic (3) History of endocarditis ICD Code: Z86.79 - History of endocarditis Status: Acute (4) Anxiety and depression ICD Code: F41.8 - Anxiety and depression Status: Acute (5) Tobacco abuse ICD Code: Z72.0 - Tobacco abuse Status: Acute (6) Anemia ICD Code: D64.9 - Anemia, unspecified Status: Acute (7) GI bleed ICD Code: K92.2 - Gastrointestinal hemorrhage, unspecified Status: Acute (8) Hypertrophic cardiomyopathy ICD Code: I42.2 - Hypertrophic cardiomyopathy Status: Acute 1. Perforated Duodenal Ulcer with massive contamination, Sepsis and Bandemia, followed by ID specialist, Hemoglobin 8.9 and WBC 13.8 Improving, status post Duodenal Jay patch,as per General Surgery recommended for Regular diet, okay to shower, transition to Coumadin started for today and asked for Warfarin pharmacy. 2. History of mechanical mitral valve replacement [facility] bileaflet for previous endocarditis 2000, History of hypertrophic Cardiomyopathy, status post septal myomectomy History of AICD 2013 hypertension and V tach, Echocardiogram EF 60%, On hold Warfarin and awaiting clearance by General Surgery to re start medicine, re started on Warfarin and continue bridging with Heparin. 3. VDRF Improved. continue bronchodilator, Mucolytic and incentive spirometry. 4. Tobacco dependence strongly recommended to stop smoking. c 5. Hypokalemia replaced and following 6. Acute blood loss anemia hemoglobin now 8.9, status post transfusion of six units of PRBCs and 4 of FFP during this hospitalization 7. Severe Sepsis was on Zosyn/Tazobactam and fluconazole, complete / by ID specialist, blood cultures, urine culture and C Diff negative 8. Depression: On duloxetine, Clonazepam and Aripiprazole Prophylaxis -GI -pantoprazole -DVT -SCD/heparin drip Discharge Planning Once cleared by specialists. Asael Ryder MD Sep 18, 2017 17:30
[2017-09-18] MEDS ORDERED: WARFARIN SOD 5 MG TAB PO ONE (18:00)
[2017-09-18] MEDS: MAGNESIUM SULFATE 1 GM PREMIX 100 ML IV SCH ×2 (18:40→20:26)
[2017-09-18] MEDS: MELATONIN 5 MG TAB PO PRN (20:25)
[2017-09-19] MEDS: PIPERACIL-TAZO 3.375 GM PREMIX 50 ML IV SCH ×4 (02:47→22:28)
[2017-09-19] MEDS: ARTIFICIAL TEARS OPTH SOLN 15 ML BTL EACH EYE SCH (03:04)
[2017-09-19] MEDS: ERYTHROMYCIN ETHYLSUCCINATE 200 MG/5 ML SUSP 100 ML BOTTLE PO SCH (03:04)
[2017-09-19 05:00] VITALS: BP 140/96; PULSE 98; RESP 18; TEMP 97.7; O2SAT 98
[2017-09-19] MEDS: clonazePAM 0.5 MG TAB PO PRN ×3 (05:10→22:35)
[2017-09-19] MEDS: ACETAMINOPHEN/HYDROcodone 325 MG/5 MG TAB PO PRN ×3 (05:11→22:35)
[2017-09-19 07:55] VITALS: BP 169/99; PULSE 101; RESP 20; TEMP 97.3; O2SAT 94
[2017-09-19 08:12] LABS: INTERNATIONAL NORMALIZED RATIO 1.2 RATIO; PROTHROMBIN TIME - PATIENT 12.2 SEC (9.8-11.6)
--- NOTE | 2017-09-19 08:34 | HHI.PR ---
cc: Joel Watson MD Subjective Subjective Notes DAILY PROGRESS NOTE FOR SURGICAL ATTENDING, DR. JOEL WATSON Head [place] dinner last night Doing well Pain under control with by mouth medication No fevers or chills Objective Vitals/I&O Vital Signs Date Time Temp Pulse Resp B/P (MAP) Pulse Ox O2 Delivery O2 Flow Rate FiO2 09/19/17 07:55 97.3 101 20 169/99 (122) 94 09/16/17 21:40 Room Air 09/15/17 20:00 2.00 Labs Laboratory Tests Test 09/18/17 10:58 09/18/17 16:10 09/19/17 07:41 Phosphorus Level 4.2 Magnesium Level 1.7 Potassium Level 3.4 Prothrombin Time 12.2 Prothromb Time International Ratio 1.2 Activated Partial Thromboplast Time 76.3 Date/Time Source Procedure Growth Status 09/15/17 19:49 Blood Peripheral Aerobic Blood Culture - Preliminary NO GROWTH IN 3 DAYS Resulted 09/15/17 19:49 Blood Peripheral Anaerobic Blood Culture - Preliminary NO GROWTH IN 3 DAYS Resulted 09/10/17 17:50 Stool Stool Stool Occult Blood (TARAN) - Final HEMOCCULT POSITIVE Complete 09/09/17 19:00 Sputum Endotracheal Gram Stain - Final Complete 09/09/17 19:00 Sputum Endotracheal Sputum Culture - Final RARE GROWTH NORMAL RESPIRATORY MAXIM Complete 09/15/17 20:48 Urine Catheterized Urine Urine Culture - Final NO GROWTH IN 48 HOURS. Complete Radiology Last Impressions Chest X-Ray 09/13/17 0600 Signed Impressions: Service Date/Time: Wednesday, September 13, 2017 05:03 - CONCLUSION: No significant change Juan Rivera MD Abdomen X-Ray 09/13/17 0600 Signed Impressions: Service Date/Time: Wednesday, September 13, 2017 05:08 - CONCLUSION: No significant change Juan Rivera MD Abdomen/Pelvis CT 09/09/17 0000 Signed Impressions: Service Date/Time: Saturday, September 09, 2017 16:36 - CONCLUSION: 1. New bilateral pleural effusions and consolidation in both posterior lung bases left greater than right with air bronchograms. 2. Abnormal bowel gas pattern most consistent with an ileus. 3. Bilateral percutaneous drainage catheters in place. 4. Cardiomegaly. Patient is status post median sternotomy. Armen Rodriguez MD Chest CT 09/01/17 0000 Signed Impressions: Service Date/Time: August 07:15 - CONCLUSION: No acute CT findings of the chest Juan Rivera MD Lungs: Clear Abdomen: Non-distended, Non-tender Extremities: No edema, Perfused Narrative Exam alexi clear drainage Having bowel movements Wound Wound : Wound Location: Abdomen Appearance: Clean & Dry Drainage: Clear A/P Problem List: (1) Status post exploratory laparotomy ICD Codes: Z98.890 - Other specified postprocedural states Status: Acute (2) Anemia ICD Codes: D64.9 - Anemia, unspecified Status: Acute (3) Duodenal ulcer perforation ICD Codes: K26.5 - Chronic or unspecified duodenal ulcer with perforation Status: Chronic (4) Duodenal ulcer with perforation ICD Codes: K26.5 - Chronic or unspecified duodenal ulcer with perforation Status: Chronic (5) H/O hypertrophic cardiomyopathy ICD Codes: Z86.79 - Personal history of other diseases of the circulatory system Status: Chronic (6) Perforation of duodenal ulcer ICD Codes: K26.5 - Chronic or unspecified duodenal ulcer with perforation Status: Acute (7) AICD (automatic cardioverter/defibrillator) present ICD Codes: Z95.810 - AICD (automatic cardioverter/defibrillator) present Status: Chronic (8) S/P MVR (mitral valve replacement) ICD Codes: Z95.4 - S/P MVR (mitral valve replacement) Status: Chronic Permanent Comment: Need prophyllaxis - Due to endocarditis Last Edited By: Ozzy Edwards on May 26, 2014 13:06 (9) H/O mitral valve replacement with mechanical valve ICD Codes: Z95.2 - Presence of prosthetic heart valve Status: Chronic (10) Chronic anticoagulation ICD Codes: Z79.01 - ocean transportation intermediary (current) use of anticoagulants Status: Chronic Assessment and Plan 41-year-old gentleman with a heart valve perforated duodenal ulcer requiring Jay patch Patient doing very well Increase diet Increase activities Change Protonix by mouth Remove mary today Pull ALEXI Anticipate he should be able go home sometime this week once cleared by the medical team Attending Statement NOTE FOR SURGICAL ATTENDING, DR. JOEL WATSON I attest that I had a [id number] encounter with the patient on the same day, and personally performed and documented my assessment and findings in the medical record. The following services were provided during this hospital visit: Chart data review, vital sign assessments/reviewing monitor data Review of consultations notes if present. Medication orders/review and/or management Ordering and/or reviewing lab tests Ordering and/or interpreting/reviewing x-rays and/or diagnostic studies Care of the patient and discussion of the patient with the care team Documentation time To help prompt me to consider important information that might be impacting today's encounter and assessment, information from prior notes written by myself or my colleagues may have been "brought forward/copy and pasted" into today's note. Problem Qualifiers (1) Anemia: Qualified Codes: D62 - Acute posthemorrhagic anemia Joel Watson MD Sep 19, 2017 08:34
[2017-09-19] MEDS: REMOVE OLD PATCH T-DERMAL SCH (09:00)
[2017-09-19] MEDS: DULoxetine HCl DR 30 MG CAP PO SCH (09:34)
[2017-09-19] MEDS: MULTIVITAMIN HEMATINIC THERAPEUTIC TAB PO SCH (09:34)
[2017-09-19] MEDS: ARIPiprazole 5 MG TAB PO SCH ×2 (09:34→23:06)
[2017-09-19] MEDS: PANTOPRAZOLE SOD 40 MG DELAYED RELEASE TAB PO SCH ×2 (09:34→22:23)
[2017-09-19] MEDS: METOPROLOL TARTRATE 25 MG TAB PO SCH (09:34)
[2017-09-19] MEDS: SODIUM CHLORIDE 0.9% FLUSH 10 ML FLUSH IV FLUSH SCH ×2 (09:35→22:24)
[2017-09-19] MEDS: HEPARIN-D5W 25,000 U/250 ML 250 ML IV PRN (11:38)
[2017-09-19 12:00] VITALS: BP 136/75; PULSE 86; RESP 20; TEMP 97; O2SAT 97
--- NOTE | 2017-09-19 14:50 | HHI.PR ---
Subjective Remarks Pt seen and examined. VS reviewed, HR and BP elevated. Pt reports he is feeling great and is ready to go home but understands he may not be quite ready for discharge. He is ambulating without assistance. He denies CP, SOB, abdominal pain, nausea, or vomiting. He continues to have about 3 episodes of loose nonbloody stools a day. He states he has an excellent support system that will help him when he is discharged home. He is tolerating PO and had [place] Citizen food for dinner last night. RAYMOND drain and ex-lap mary removed today with no complications. Objective Vital Signs Date Time Temp Pulse Resp B/P (MAP) Pulse Ox O2 Delivery O2 Flow Rate FiO2 09/19/17 07:55 97.3 101 20 169/99 (122) 94 09/19/17 05:00 97.7 98 18 140/96 (111) 98 09/18/17 23:04 97.6 81 18 142/88 (106) 97 09/18/17 21:18 98 09/18/17 19:21 98.1 104 18 145/92 (109) 98 09/18/17 15:50 98.2 96 17 147/80 (102) 97 I/O 09/18/17 09/18/17 09/18/17 09/19/17 09/19/17 09/19/17 07:00 15:00 23:00 07:00 15:00 23:00 Intake Total 908 ml 650 ml 360 ml 730 ml Output Total 405 ml 10 ml 5 ml Balance 503 ml 650 ml 350 ml 725 ml Intake Oral 500 ml 600 ml 480 ml IV Total 408 ml 50 ml 360 ml 250 ml Output Urine Total 400 ml Drainage Total 5 ml 10 ml 5 ml # Voids 1 3 3 # Bowel Movements 1 3 0 Result Diagram: 09/18/17 0455 09/18/17 1610 Procedures EGD 09/02: large amount of old blood and food retained int he stomach, duodenal bulb ulcer Ex-lap with Jay patch of duodenal ulcer, washout, RAYMOND drain, and jejunostomy tube on 09/02 Objective Remarks GENERAL: WN, WD male resting in bed in NAD. SKIN: Warm and dry. Median sternotomy scar. HEENT: AT/NC. Pupils equal and round. MMM. NECK: Supple no tender LAD or JVD. HEART: RRR w/ 06/18 crescendo-decrescendo murmur along RSB with audible mechanical click. LUNGS: CTAB without wheezes or crackles. ABDOMEN: Midline laparotomy scar healing well, s/p staple removal. RAYMOND drain removed. +BS, soft, NT, ND. PEG tube in place with no surrounding erythema or drainage. EXTREMITIES: No LE edema. 2+ pedal pulses. NEURO: Awake and alert. Nonfocal. PSYCH: Appropriate mood and affect. A/P Assessment and Plan 41 YOWM w/ history of MVR, AICD, endocarditis, hypertrophic cardiomyopathy, anxiety, and depression admitted on 09/01 for UGIB with coffee-ground emesis and acute blood loss anemia. Following EGD on 09/02 he became hemodynamically unstable and his abdomen became rock hard requiring emergent exploratory laparotomy with Jay patching of a 1 cm perforated duodenal ulcer, abdominal washout, and placement of a RAYMOND drain and feeding jejunostomy tube. He was transferred to the ICU where he was weaned off of mechanical ventilation but then subsequently developed acute hypoxemic respiratory failure requiring reintubation. He developed severe sepsis and infectious disease was consulted; he was treated with fluconazole and Zosyn. He was extubated on 09/13 and care was transferred to hospitalist service. Perforated duodenal ulcer - S/P ex-lap with Jay patching and washout - RAYMOND drain pulled today - J-tube in place - Tolerating PO - Continues to be on Zosyn for massive contamination - Monitor white count, check CBC in the AM - Protonix 40 mg PO BID - [place] PRN pain UGIB with acute blood loss anemia - EGD done on 09/02 showing ulcer of the duodenal bulb - Transfused a total of 6 units leukocyte-reduced RBCs and 4 units FFP - H&H stable - Hemodynamically stable History of mechanical mitral valve ([facility]) History of endocarditis History of HOCM s/p previous septal myectomy History of AICD Hypertension - Echo done on 09/03 demonstrated EF 65-70%, asymmetric septal hypertrophy consistent with hypertrophic cardiomyopathy with no significant LVOT gradient, aortic valve sclerosis, and mild-moderate AV regurg - On heparin drip, restarting Coumadin today, consider switching to therapeutic Lovenox while bridging to Coumadin if the patient will be going home prior to a therapeutic INR - HR and BP have been elevated, increase metoprolol to 50 mg PO BID Anxiety/depression - Continue aripiprazole and duloxetine - Klonopin PRN DVT prophylaxis: on heparin gtt Discharge Planning Pt will likely be ready for discharge in a couple days Angelina Hannah MD Sep 19, 2017 14:50
[2017-09-19] MEDS: WARFARIN SOD 2.5 MG TAB PO SCH (15:01)
[2017-09-19 16:00] VITALS: BP 136/90; PULSE 98; RESP 19; TEMP 97.9; O2SAT 96
[2017-09-19 19:02] VITALS: BP 140/90; PULSE 94
[2017-09-19] MEDS ORDERED: TEMAZEPAM 7.5 MG CAP PO ONE (19:30)
[2017-09-19 20:00] VITALS: BP 144/94; PULSE 110; RESP 19; TEMP 97.8; O2SAT 95
[2017-09-19] MEDS: METOPROLOL TARTRATE 50 MG TAB PO SCH (22:23)
[2017-09-20] VITALS: BP 149/83; PULSE 92; RESP 18; TEMP 98.2; O2SAT 95
[2017-09-20] MEDS: HEPARIN-D5W 25,000 U/250 ML 250 ML IV PRN ×2 (00:21→14:29)
[2017-09-20] MEDS: metroNIDAZOLE 500 MG INJ 100 ML IV SCH ×3 (01:59→18:00)
[2017-09-20] MEDS: PIPERACIL-TAZO 3.375 GM PREMIX 50 ML IV SCH ×3 (03:19→23:17)
[2017-09-20 04:00] VITALS: BP 148/95; PULSE 60; RESP 18; TEMP 98.4; O2SAT 94
[2017-09-20 06:36] LABS: AUTOMATED NEUTROPHIL # 8.3 TH/MM3 (1.8-7.7); BASOPHIL # 0.5 TH/MM3 (0-0.2); BASOPHIL % 4.3 % (0.0-2.0); EOSINOPHIL # 0.2 TH/MM3 (0-0.4); EOSINOPHIL % 1.8 % (0.0-4.0); HEMATOCRIT 26.1 % (39.0-51.0); HEMOGLOBIN 8.6 GM/DL (13.0-17.0); LYMPH % 18.4 % (9.0-44.0); LYMPHOCYTE # 2.2 TH/MM3 (1.0-4.8); MEAN CELL VOLUME 90.5 FL (80.0-100.0); MEAN CORPUSCULAR HEMOGLOBIN 29.8 PG (27.0-34.0); MEAN PLATELET VOLUME 7.6 FL (7.0-11.0); MONO % 6.1 % (0.0-8.0); MONOCYTE # 0.7 TH/MM3 (0-0.9); NEUT % 69.4 % (16.0-70.0); PLATELET COUNT 617 TH/MM3 (150-450); RED BLOOD COUNT 2.88 MIL/MM3 (4.50-5.90); RED CELL DISTRIBUTION WIDTH 19.2 % (11.6-17.2); WHITE BLOOD COUNT 11.9 TH/MM3 (4.0-11.0)
[2017-09-20 06:45] LABS: INTERNATIONAL NORMALIZED RATIO 1.3 RATIO; PROTHROMBIN TIME - PATIENT 12.7 SEC (9.8-11.6)
[2017-09-20 06:58] LABS: BICARBONATE 23.7 MEQ/L (21.0-32.0); CALCIUM 8.3 MG/DL (8.5-10.1); CREATININE 0.84 MG/DL (0.60-1.30); MAGNESIUM 1.8 MG/DL (1.5-2.5)
[2017-09-20] MEDS: MULTIVITAMIN HEMATINIC THERAPEUTIC TAB PO SCH (07:45)
[2017-09-20] MEDS: ACETAMINOPHEN/HYDROcodone 325 MG/5 MG TAB PO PRN ×3 (07:50→23:57)
[2017-09-20] MEDS: PANTOPRAZOLE SOD 40 MG DELAYED RELEASE TAB PO SCH ×2 (07:50→20:17)
[2017-09-20] MEDS: clonazePAM 0.5 MG TAB PO PRN ×2 (07:50→23:57)
[2017-09-20 08:00] VITALS: BP 132/90; PULSE 102; RESP 18; TEMP 97.8; O2SAT 98
[2017-09-20 08:24] LABS: BANDS 1 % (0-6); CORRECTED NUCLEATED RBC 2 /100 WBC (0-0); LYMPHOCYTES 10 % (9-44); METAMYELOCYTES 1 % (0-1); MONOCYTES 3 % (0-8); MYELOCYTES 1 % (0-0); NEUTROPHIL # MANUAL DIFF 10.2 TH/MM3 (1.8-7.7); NUCLEATED RED BLOOD CELL 2 (0-0); OVALOCYTES 1+ (NORMAL); POLYS (SEG NEUTROPHILS) 83 % (16-70)
[2017-09-20] MEDS: METOPROLOL TARTRATE 50 MG TAB PO SCH ×2 (09:00→20:18)
[2017-09-20] MEDS: ARIPiprazole 5 MG TAB PO SCH ×2 (09:00→20:17)
[2017-09-20] MEDS: SODIUM CHLORIDE 0.9% FLUSH 10 ML FLUSH IV FLUSH SCH ×2 (09:00→20:18)
[2017-09-20] MEDS: REMOVE OLD PATCH T-DERMAL SCH (09:00)
[2017-09-20] MEDS: DULoxetine HCl DR 30 MG CAP PO SCH (09:00)
[2017-09-20 12:00] VITALS: BP 130/86; PULSE 97; RESP 18; TEMP 96.9; O2SAT 100
--- NOTE | 2017-09-20 12:41 | HHI.PR ---
Subjective Remarks INR subtherapeutic, repeat C. difficile negative, still with loose stools but improving. Patient refusing intravenous antibiotics. No abdominal pain. Patient allegedly gave a sample from the son's stools yesterday. Son corroborated this story Objective Vitals Vital Signs Date Time Temp Pulse Resp B/P (MAP) Pulse Ox O2 Delivery O2 Flow Rate FiO2 09/20/17 08:00 97.8 102 18 132/90 (104) 98 09/20/17 04:00 98.4 60 18 148/95 (112) 94 09/20/17 00:00 98.2 92 18 149/83 (105) 95 09/19/17 20:00 97.8 110 19 144/94 (111) 95 09/19/17 19:02 94 140/90 (107) 09/19/17 16:00 97.9 98 19 136/90 (105) 96 I/O 09/19/17 09/19/17 09/19/17 09/20/17 09/20/17 09/20/17 07:00 15:00 23:00 07:00 15:00 23:00 Intake Total 730 ml 620 ml Output Total 5 ml Balance 725 ml 620 ml Intake Oral 480 ml 620 ml IV Total 250 ml Drainage Total 5 ml # Voids 3 4 3 # Bowel Movements 0 4 1 Result Diagram: 09/20/1715 09/20/17 0515 Objective Remarks GENERAL: WN, WD male resting in bed in [facility]. HEART: RRR with murmur along RSB with audible mechanical click. LUNGS: CTAB without wheezes or crackles. ABDOMEN: Midline laparotomy scar healing well, s/p staple removal. RAYMOND drain removed. +BS, soft, NT, ND. PEG tube in place with no surrounding erythema or drainage. EXTREMITIES: No LE edema. 2+ pedal pulses. NEURO: Awake and alert. Nonfocal. PSYCH: Appropriate mood and affect. Procedures None Date of Insertion: Sep 02, 2017 Line: Central Venous Catheter Side: Right Location: Subclavian A/P Problem List: (1) S/P MVR (mitral valve replacement) ICD Code: Z95.4 - S/P MVR (mitral valve replacement) Status: Chronic Permanent Comment: Need prophyllaxis - Due to endocarditis Last Edited By: Ozzy Edwards on May 26, 2014 13:06 (2) AICD (automatic cardioverter/defibrillator) present ICD Code: Z95.810 - AICD (automatic cardioverter/defibrillator) present Status: Chronic (3) History of endocarditis ICD Code: Z86.79 - History of endocarditis Status: Acute (4) Anxiety and depression ICD Code: F41.8 - Anxiety and depression Status: Acute (5) Tobacco abuse ICD Code: Z72.0 - Tobacco abuse Status: Acute (6) Anemia ICD Code: D64.9 - Anemia, unspecified Status: Acute (7) GI bleed ICD Code: K92.2 - Gastrointestinal hemorrhage, unspecified Status: Acute (8) Hypertrophic cardiomyopathy ICD Code: I42.2 - Hypertrophic cardiomyopathy Status: Acute Permanent Comment: [facility]. Stress-echo Last Edited By: Ozzy Edwards on May 26, 2014 13:05 Assessment and Plan 41 YOWM w/ history of MVR, AICD, endocarditis, hypertrophic cardiomyopathy, anxiety, and depression admitted on 09/01 for UGIB with coffee-ground emesis and acute blood loss anemia. Following EGD on 09/02 he became hemodynamically unstable and his abdomen became rock hard requiring emergent exploratory laparotomy with Jay patching of a 1 cm perforated duodenal ulcer, abdominal washout, and placement of a RAYMOND drain and feeding jejunostomy tube. He was transferred to the ICU where he was weaned off of mechanical ventilation but then subsequently developed acute hypoxemic respiratory failure requiring reintubation. He developed severe sepsis and infectious disease was consulted; he was treated with fluconazole and Zosyn. He was extubated on 09/13 and care was transferred to hospitalist service. Perforated duodenal ulcer - S/P ex-lap with Jay patching and washout, RAYMOND drain removal, - J-tube in place - Tolerating PO - Continues to be on Zosyn for massive contamination, discussed with ID, still with leukocytosis. - Protonix 40 mg PO BID - Ayden PRN pain UGIB with acute blood loss anemia - EGD done on 09/02 showing ulcer of the duodenal bulb - Transfused a total of 6 units leukocyte-reduced RBCs and 4 units FFP - H&H stable - Hemodynamically stable History of mechanical mitral valve ([place]) History of endocarditis History of HOCM s/p previous septal myectomy History of AICD Hypertension - Echo done on 09/03 demonstrated EF 65-70%, asymmetric septal hypertrophy consistent with hypertrophic cardiomyopathy with no significant LVOT gradient, aortic valve sclerosis, and mild-moderate AV regurg - On heparin drip, restarting Coumadin today, consider switching to therapeutic Lovenox while bridging to Coumadin if the patient will be going home prior to a therapeutic INR - HR and BP have been elevated, increase metoprolol to 50 mg PO BID Anxiety/depression - Continue aripiprazole and duloxetine - Klonopin PRN Diarrhea-likely antibiotic associated. C. difficile from 09/20/2007 and positive , patient was placed on Flagyl. However patient now saying that the stool sample was actually his son stool sample. The patient's son corroborated this story. Will stop Flagyl. Discussed with infectious disease. The patient's son will be brought to the primary care physician by the patient's . DVT prophylaxis: on heparin gtt, INR subtherapeutic, switch to Lovenox for now, possible discharge on Lovenox while awaiting INR to be therapeutic. Discharge Planning Discharge once cleared by infectious disease and surgery Problem Qualifiers (1) Anemia: Qualified Codes: D62 - Acute posthemorrhagic anemia (2) GI bleed: Qualified Codes: K26.4 - Chronic or unspecified duodenal ulcer with hemorrhage Alissa Francis MD Sep 20, 2017 12:41
--- NOTE | 2017-09-20 12:43 | HHI.PR ---
cc: Joel Watson MD Subjective Subjective Notes DAILY PROGRESS NOTE FOR SURGICAL ATTENDING, DR. JOEL WATSON "I want to take a shower!" " I want to go home." Objective Vitals/I&O Vital Signs Date Time Temp Pulse Resp B/P (MAP) Pulse Ox O2 Delivery O2 Flow Rate FiO2 09/20/17 08:00 97.8 102 18 132/90 (104) 98 09/16/17 21:40 Room Air Labs Laboratory Tests Test 09/19/17 16:30 09/19/17 19:46 09/19/17 23:43 09/20/17 05:15 Activated Partial Thromboplast Time 45.6 57.6 48.5 Stool C. difficile Toxin (PCR) POSITIVE Stl C. difficile Toxin Epiderm 027 PRESUMPTIVE NEGATIVE White Blood Count 11.9 Red Blood Count 2.88 Hemoglobin 8.6 Hematocrit 26.1 Mean Corpuscular Volume 90.5 Mean Corpuscular Hemoglobin 29.8 Mean Corpuscular Hemoglobin Concent 33.0 Red Cell Distribution Width 19.2 Platelet Count 617 Mean Platelet Volume 7.6 Neutrophils (%) (Auto) 69.4 Lymphocytes (%) (Auto) 18.4 Monocytes (%) (Auto) 6.1 Eosinophils (%) (Auto) 1.8 Basophils (%) (Auto) 4.3 Neutrophils # (Auto) 8.3 Lymphocytes # (Auto) 2.2 Monocytes # (Auto) 0.7 Eosinophils # (Auto) 0.2 Basophils # (Auto) 0.5 CBC Comment AUTO DIFF Differential Total Cells Counted 100 Neutrophils % (Manual) 83 Band Neutrophils % 1 Lymphocytes % 10 Monocytes % 3 Eosinophils % 1 Neutrophils # (Manual) 10.2 Metamyelocytes 1 Myelocytes 1 Nucleated Red Blood Cells 2 Differential Comment FINAL DIFF MANUAL Platelet Estimate HIGH Platelet Morphology Comment NORMAL Ovalocytes 1+ Prothrombin Time 12.7 Prothromb Time International Ratio 1.3 Blood Urea Nitrogen 9 Creatinine 0.84 Random Glucose 107 Calcium Level 8.3 Magnesium Level 1.8 Sodium Level 142 Potassium Level 3.0 Chloride Level 108 Carbon Dioxide Level 23.7 Anion Gap 10 Estimat Glomerular Filtration Rate 102 Test 09/20/17 09:36 Stool C. difficile Toxin (PCR) NEGATIVE Stl C. difficile Toxin Epiderm 027 PRESUMPTIVE NEGATIVE Date/Time Source Procedure Growth Status 09/15/17 19:49 Blood Peripheral Aerobic Blood Culture - Final NO GROWTH IN 5 DAYS Complete 09/15/17 19:49 Blood Peripheral Anaerobic Blood Culture - Final NO GROWTH IN 5 DAYS Complete 09/10/17 17:50 Stool Stool Stool Occult Blood (TARAN) - Final HEMOCCULT POSITIVE Complete 09/09/17 19:00 Sputum Endotracheal Gram Stain - Final Complete 09/09/17 19:00 Sputum Endotracheal Sputum Culture - Final RARE GROWTH NORMAL RESPIRATORY MAXIM Complete 09/15/17 20:48 Urine Catheterized Urine Urine Culture - Final NO GROWTH IN 48 HOURS. Complete Radiology Last Impressions Chest X-Ray 09/13/17 06 Signed Impressions: Service Date/Time: Wednesday, September 13, 2017 05:03 - CONCLUSION: No significant change Juan Rivera MD Abdomen X-Ray 09/13/17 06 Signed Impressions: Service Date/Time: Wednesday, September 13, 2017 05:08 - CONCLUSION: No significant change Juan Rivera MD Abdomen/Pelvis CT 09/09/17 0000 Signed Impressions: Service Date/Time: Saturday, September 09, 2017 16:36 - CONCLUSION: 1. New bilateral pleural effusions and consolidation in both posterior lung bases left greater than right with air bronchograms. 2. Abnormal bowel gas pattern most consistent with an ileus. 3. Bilateral percutaneous drainage catheters in place. 4. Cardiomegaly. Patient is status post median sternotomy. Armen Rodriguez MD Chest CT 09/01/17 0000 Signed Impressions: Service Date/Time: August 07:15 - CONCLUSION: No acute CT findings of the chest Juan Rivera MD Cardiovascular: Regular Lungs: Clear Abdomen: Other (midline incision healing well; mary removed; J tube clamped ) Extremities: No edema A/P Problem List: (1) Status post exploratory laparotomy ICD Codes: Z98.890 - Other specified postprocedural states Status: Acute (2) Anemia ICD Codes: D64.9 - Anemia, unspecified Status: Acute (3) Duodenal ulcer perforation ICD Codes: K26.5 - Chronic or unspecified duodenal ulcer with perforation Status: Chronic (4) Duodenal ulcer with perforation ICD Codes: K26.5 - Chronic or unspecified duodenal ulcer with perforation Status: Chronic (5) H/O hypertrophic cardiomyopathy ICD Codes: Z86.79 - Personal history of other diseases of the circulatory system Status: Chronic (6) Perforation of duodenal ulcer ICD Codes: K26.5 - Chronic or unspecified duodenal ulcer with perforation Status: Acute (7) AICD (automatic cardioverter/defibrillator) present ICD Codes: Z95.810 - AICD (automatic cardioverter/defibrillator) present Status: Chronic (8) S/P MVR (mitral valve replacement) ICD Codes: Z95.4 - S/P MVR (mitral valve replacement) Status: Chronic (9) H/O mitral valve replacement with mechanical valve ICD Codes: Z95.2 - Presence of prosthetic heart valve Status: Chronic (10) Chronic anticoagulation ICD Codes: Z79.01 - manager long term care (current) use of anticoagulants Status: Chronic Assessment and Plan 41 year old male s/p ex lap; repair of duodenal ulcer, J tube placement -WBC continues to trend down -Regular diet; clamp NGT -Pain controlled -Convert heparin to Coumadin -Okay to shower once off heparin -Apparently patient had obtained a stool sample from his son; it tested positive for c-diff; the patient refused the treatment for c-diff; the patient was re-tested and it was negative; patient's has been notified of patient' s son positive c-diff sample Attending Statement NOTE FOR SURGICAL ATTENDING, DR. JOEL WATSON I agree with above assessment and plan. The following services were provided during this hospital visit: Chart data review, vital sign assessments/reviewing monitor data Review of consultations notes if present. Medication orders/review and/or management Ordering and/or reviewing lab tests Ordering and/or interpreting/reviewing x-rays and/or diagnostic studies Care of the patient and discussion of the patient with the care team Documentation time To help prompt me to consider important information that might be impacting today's encounter and assessment, information from prior notes written by myself or my colleagues may have been "brought forward/copy and pasted" into today's note. Problem Qualifiers (1) Anemia: Qualified Codes: D62 - Acute posthemorrhagic anemia Ines Valentino/First Kamaljit RODRÍGUEZ Sep 20, 2017 12:43 Jole Watson MD Sep 21, 2017 15:57
[2017-09-20] MEDS ORDERED: HYDR-3516 PO (14:03)
--- NOTE | 2017-09-20 14:09 | HHI.FF ---
Face to Face Verification Diagnosis: (1) Perforation of duodenal ulcer Home Health Nursing Order: Signs/symptoms of disease process Nursing assessment with vital signs I have seen patient Sandro Mcintosh on 09/20/17. My clinical findings support the need for the requested home health care services because: Ltd mobility - disease progression I certify that my clinical findings support that this patient is homebound because: Post-op weakness Alissa Francis MD Sep 20, 2017 14:09
[2017-09-20 16:00] VITALS: BP 138/91; PULSE 110; RESP 18; TEMP 97.8; O2SAT 97
[2017-09-20] MEDS: WARFARIN SOD 2.5 MG TAB PO SCH (17:01)
[2017-09-20 19:15] VITALS: BP 120/93; PULSE 113; RESP 18; TEMP 97.8; O2SAT 97
[2017-09-20] MEDS ORDERED: POTASSIUM CHLORIDE 10 MEQ CONTROLLED RELEASE TAB PO ONE (22:45)
[2017-09-21 00:15] VITALS: BP 153/81; PULSE 86; RESP 18; TEMP 98.6; O2SAT 96
[2017-09-21] MEDS: metroNIDAZOLE 500 MG INJ 100 ML IV SCH ×2 (02:29→09:31)
[2017-09-21] MEDS: PIPERACIL-TAZO 3.375 GM PREMIX 50 ML IV SCH (02:44)
[2017-09-21 04:45] VITALS: BP 134/80; PULSE 92; RESP 18; TEMP 97.7; O2SAT 96
[2017-09-21] MEDS: ACETAMINOPHEN/HYDROcodone 325 MG/5 MG TAB PO PRN ×2 (06:51→13:28)
[2017-09-21 07:43] VITALS: PULSE 98
[2017-09-21 07:56] LABS: INTERNATIONAL NORMALIZED RATIO 1.3 RATIO; PROTHROMBIN TIME - PATIENT 12.7 SEC (9.8-11.6)
[2017-09-21 07:59] LABS: AUTOMATED NEUTROPHIL # 7.5 TH/MM3 (1.8-7.7); BASOPHIL # 0.2 TH/MM3 (0-0.2); BASOPHIL % 2.1 % (0.0-2.0); EOSINOPHIL # 0.1 TH/MM3 (0-0.4); EOSINOPHIL % 1.3 % (0.0-4.0); HEMATOCRIT 27.2 % (39.0-51.0); HEMOGLOBIN 9.1 GM/DL (13.0-17.0); LYMPH % 15.9 % (9.0-44.0); LYMPHOCYTE # 1.6 TH/MM3 (1.0-4.8); MEAN CELL VOLUME 89.2 FL (80.0-100.0); MEAN CORPUSCULAR HGB CONC 33.6 % (32.0-36.0); MONO % 5.1 % (0.0-8.0); MONOCYTE # 0.5 TH/MM3 (0-0.9); NEUT % 75.6 % (16.0-70.0); PLATELET COUNT 577 TH/MM3 (150-450); RED BLOOD COUNT 3.05 MIL/MM3 (4.50-5.90); WHITE BLOOD COUNT 9.9 TH/MM3 (4.0-11.0)
[2017-09-21 08:00] VITALS: BP 138/88; PULSE 96; RESP 18; TEMP 97.5; O2SAT 97
[2017-09-21 08:18] LABS: BICARBONATE 22.5 MEQ/L (21.0-32.0); CALCIUM 8.5 MG/DL (8.5-10.1); CREATININE 0.77 MG/DL (0.60-1.30); MAGNESIUM 1.7 MG/DL (1.5-2.5)
[2017-09-21] MEDS: REMOVE OLD PATCH T-DERMAL SCH (09:00)
[2017-09-21] MEDS: PANTOPRAZOLE SOD 40 MG DELAYED RELEASE TAB PO SCH (09:19)
[2017-09-21] MEDS: METOPROLOL TARTRATE 50 MG TAB PO SCH (09:19)
[2017-09-21] MEDS: ARIPiprazole 5 MG TAB PO SCH (09:19)
[2017-09-21] MEDS: DULoxetine HCl DR 30 MG CAP PO SCH (09:19)
[2017-09-21] MEDS: MULTIVITAMIN HEMATINIC THERAPEUTIC TAB PO SCH (09:19)
[2017-09-21] MEDS: clonazePAM 0.5 MG TAB PO PRN (09:19)
[2017-09-21] MEDS: SODIUM CHLORIDE 0.9% FLUSH 10 ML FLUSH IV FLUSH SCH (09:20)
[2017-09-21 09:38] VITALS: PULSE 105
--- NOTE | 2017-09-21 11:17 | HHI.PR ---
cc: Joel Watson MD Subjective Subjective Notes DAILY PROGRESS NOTE FOR SURGICAL ATTENDING, DR. JOEL WATSON Resting in bed Aggravated about low INR level Wants to leave AMA Objective Vitals/I&O Vital Signs Date Time Temp Pulse Resp B/P (MAP) Pulse Ox O2 Delivery O2 Flow Rate FiO2 09/21/17 09:38 105 09/21/17 08:00 97.5 18 138/88 (105) 97 Labs Laboratory Tests Test 09/21/17 07:22 White Blood Count 9.9 Red Blood Count 3.05 Hemoglobin 9.1 Hematocrit 27.2 Mean Corpuscular Volume 89.2 Mean Corpuscular Hemoglobin 30.0 Mean Corpuscular Hemoglobin Concent 33.6 Red Cell Distribution Width 19.0 Platelet Count 577 Mean Platelet Volume 7.0 Neutrophils (%) (Auto) 75.6 Lymphocytes (%) (Auto) 15.9 Monocytes (%) (Auto) 5.1 Eosinophils (%) (Auto) 1.3 Basophils (%) (Auto) 2.1 Neutrophils # (Auto) 7.5 Lymphocytes # (Auto) 1.6 Monocytes # (Auto) 0.5 Eosinophils # (Auto) 0.1 Basophils # (Auto) 0.2 CBC Comment DIFF FINAL Differential Comment Prothrombin Time 12.7 Prothromb Time International Ratio 1.3 Activated Partial Thromboplast Time 27.6 Blood Urea Nitrogen 8 Creatinine 0.77 Random Glucose 95 Calcium Level 8.5 Magnesium Level 1.7 Sodium Level 141 Potassium Level 3.2 Chloride Level 108 Carbon Dioxide Level 22.5 Anion Gap 11 Estimat Glomerular Filtration Rate 112 Date/Time Source Procedure Growth Status 09/15/17 19:49 Blood Peripheral Aerobic Blood Culture - Final NO GROWTH IN 5 DAYS Complete 09/15/17 19:49 Blood Peripheral Anaerobic Blood Culture - Final NO GROWTH IN 5 DAYS Complete 09/10/17 17:50 Stool Stool Stool Occult Blood (TARAN) - Final HEMOCCULT POSITIVE Complete 09/09/17 19:00 Sputum Endotracheal Gram Stain - Final Complete 09/09/17 19:00 Sputum Endotracheal Sputum Culture - Final RARE GROWTH NORMAL RESPIRATORY MAXIM Complete 09/15/17 20:48 Urine Catheterized Urine Urine Culture - Final NO GROWTH IN 48 HOURS. Complete Radiology Last Impressions Chest X-Ray 09/13/17 0600 Signed Impressions: Service Date/Time: Wednesday, September 13, 2017 05:03 - CONCLUSION: No significant change Juan Rivera MD Abdomen X-Ray 09/13/17 0600 Signed Impressions: Service Date/Time: Wednesday, September 13, 2017 05:08 - CONCLUSION: No significant change Juan Rivera MD Abdomen/Pelvis CT 09/09/17 0000 Signed Impressions: Service Date/Time: Saturday, September 09, 2017 16:36 - CONCLUSION: 1. New bilateral pleural effusions and consolidation in both posterior lung bases left greater than right with air bronchograms. 2. Abnormal bowel gas pattern most consistent with an ileus. 3. Bilateral percutaneous drainage catheters in place. 4. Cardiomegaly. Patient is status post median sternotomy. Armen Rodriguez MD Chest CT 09/01/17 0000 Signed Impressions: Service Date/Time: August 07:15 - CONCLUSION: No acute CT findings of the chest Juan Rivera MD Cardiovascular: Regular Lungs: Clear Abdomen: Other (healed midline incision; J tube clamped ) Extremities: No edema A/P Problem List: (1) Status post exploratory laparotomy ICD Codes: Z98.890 - Other specified postprocedural states Status: Acute (2) Anemia ICD Codes: D64.9 - Anemia, unspecified Status: Acute (3) Duodenal ulcer perforation ICD Codes: K26.5 - Chronic or unspecified duodenal ulcer with perforation Status: Chronic (4) Duodenal ulcer with perforation ICD Codes: K26.5 - Chronic or unspecified duodenal ulcer with perforation Status: Chronic (5) H/O hypertrophic cardiomyopathy ICD Codes: Z86.79 - Personal history of other diseases of the circulatory system Status: Chronic (6) Perforation of duodenal ulcer ICD Codes: K26.5 - Chronic or unspecified duodenal ulcer with perforation Status: Acute (7) AICD (automatic cardioverter/defibrillator) present ICD Codes: Z95.810 - AICD (automatic cardioverter/defibrillator) present Status: Chronic (8) S/P MVR (mitral valve replacement) ICD Codes: Z95.4 - S/P MVR (mitral valve replacement) Status: Chronic (9) H/O mitral valve replacement with mechanical valve ICD Codes: Z95.2 - Presence of prosthetic heart valve Status: Chronic (10) Chronic anticoagulation ICD Codes: Z79.01 - terminal clerk (current) use of anticoagulants Status: Chronic Assessment and Plan 41 year old male s/p ex lap; repair of duodenal ulcer, J tube placement -WBC continues to trend down -Regular diet -Pain controlled -Convert heparin to Coumadin; INR 1.3 today -Okay to shower from GS standpoint - clear for DC; Follow up October 04 at 2:20PM Attending Statement NOTE FOR SURGICAL ATTENDING, DR. JOEL WATSON I agree with above assessment and plan. The following services were provided during this hospital visit: Chart data review, vital sign assessments/reviewing monitor data Review of consultations notes if present. Medication orders/review and/or management Ordering and/or reviewing lab tests Ordering and/or interpreting/reviewing x-rays and/or diagnostic studies Care of the patient and discussion of the patient with the care team Documentation time To help prompt me to consider important information that might be impacting today's encounter and assessment, information from prior notes written by myself or my colleagues may have been "brought forward/copy and pasted" into today's note. Problem Qualifiers (1) Anemia: Qualified Codes: D62 - Acute posthemorrhagic anemia Ines Valentino/Tobacco Prevention Health Educator MARCOS Sep 21, 2017 11:17 Joel Watson MD Sep 21, 2017 15:59
[2017-09-21 12:01] VITALS: BP 147/90; PULSE 91; PULSE 97; RESP 17; TEMP 98; O2SAT 98
--- NOTE | 2017-09-21 13:55 | HHI.DS ---
Discharge Summary Admission Date Sep 01, 2017 at 07:35 Discharge Date: Sep 21, 2017 Admitting Diagnosis GI bleed and cooffe ground emesis amd melena (1) S/P MVR (mitral valve replacement) ICD Code: Z95.4 - S/P MVR (mitral valve replacement) Status: Chronic (2) AICD (automatic cardioverter/defibrillator) present ICD Code: Z95.810 - AICD (automatic cardioverter/defibrillator) present Status: Chronic (3) History of endocarditis ICD Code: Z86.79 - History of endocarditis Status: Acute (4) Anxiety and depression ICD Code: F41.8 - Anxiety and depression Status: Acute (5) Tobacco abuse ICD Code: Z72.0 - Tobacco abuse Status: Acute (6) Anemia ICD Code: D64.9 - Anemia, unspecified Status: Acute (7) GI bleed ICD Code: K92.2 - Gastrointestinal hemorrhage, unspecified Status: Acute (8) Hypertrophic cardiomyopathy ICD Code: I42.2 - Hypertrophic cardiomyopathy Status: Acute Procedures S/P ex-lap with Jay patching and washout Brief History - From Admission Patient is a 41-year-old male who approximately 16 years ago had a [place] mechanical valve placed then had cardiac surgery to remove scar tissue from left ventricle few years ago.. Also had septoplasty about a year ago. Patient recently saw a new physician Dr. Mayes and been taking Mobic NSAID twice daily for sternotomy pain and back pain which is chronic, he denies having any black stools however he did state that he vomited after drinking Coca-Cola but the vomit did not look like coke cola which he drinks all the time per the emergency department he reported what sounded like coffee- ground emesis noted to be pale. He been taking the Mobic for the past 2 weeks has some abdominal pain. Patient found to have a quite decreased hemoglobin in the 5 range will be transfused will be admitted and will consult gastroenterology. CBC/BMP: 09/21/17 0722 09/21/17 0722 Significant Findings Laboratory Tests Test 09/18/17 16:10 09/19/17 07:41 09/19/17 16:30 09/19/17 19:46 Potassium Level 3.4 MEQ/L (3.5-5.1) Prothrombin Time 12.2 SEC (9.8-11.6) Activated Partial Thromboplast Time 76.3 SEC (24.3-30.1) 45.6 SEC (24.3-30.1) Test 09/19/17 23:43 09/20/17 05:15 09/20/17 09:36 09/21/17 07:22 Activated Partial Thromboplast Time 57.6 SEC (24.3-30.1) 48.5 SEC (24.3-30.1) White Blood Count 11.9 TH/MM3 (4.0-11.0) Red Blood Count 2.88 MIL/MM3 (4.50-5.90) 3.05 MIL/MM3 (4.50-5.90) Hemoglobin 8.6 GM/DL (13.0-17.0) 9.1 GM/DL (13.0-17.0) Hematocrit 26.1 % (39.0-51.0) 27.2 % (39.0-51.0) Red Cell Distribution Width 19.2 % (11.6-17.2) 19.0 % (11.6-17.2) Platelet Count 617 TH/MM3 (150-450) 577 TH/MM3 (150-450) Basophils (%) (Auto) 4.3 % (0.0-2.0) 2.1 % (0.0-2.0) Neutrophils # (Auto) 8.3 TH/MM3 (1.8-7.7) Basophils # (Auto) 0.5 TH/MM3 (0-0.2) Neutrophils % (Manual) 83 % (16-70) Neutrophils # (Manual) 10.2 TH/MM3 (1.8-7.7) Myelocytes 1 % (0-0) Nucleated Red Blood Cells 2 /100 WBC (0-0) Platelet Estimate HIGH (NORMAL) Ovalocytes 1+ (NORMAL) Prothrombin Time 12.7 SEC (9.8-11.6) 12.7 SEC (9.8-11.6) Random Glucose 107 MG/DL (74-106) Calcium Level 8.3 MG/DL (8.5-10.1) Potassium Level 3.0 MEQ/L (3.5-5.1) 3.2 MEQ/L (3.5-5.1) Chloride Level 108 MEQ/L (98-107) 108 MEQ/L (98-107) Neutrophils (%) (Auto) 75.6 % (16.0-70.0) Imaging Last Impressions Chest X-Ray 09/16/17 0600 Signed Impressions: Service Date/Time: Saturday, September 16, 2017 06:08 - CONCLUSION: Endotracheal tube , nasogastric tube, and right subclavian central venous catheter no longer seen. Persistent left lower lobe atelectasis versus consolidation and mild right lung base hazy opacity. Uvaldo Brown MD Catheter Change 09/14/17 0000 Signed Impressions: Service Date/Time: Thursday, September 14, 2017 13:49 - CONCLUSION: Uncomplicated tube exchange as above. Albert Lozada MD Abdomen X-Ray 09/13/17 0600 Signed Impressions: Service Date/Time: Wednesday, September 13, 2017 05:08 - CONCLUSION: No significant change Juan Rivera MD Abdomen/Pelvis CT 09/09/17 0000 Signed Impressions: Service Date/Time: Saturday, September 09, 2017 16:36 - CONCLUSION: 1. New bilateral pleural effusions and consolidation in both posterior lung bases left greater than right with air bronchograms. 2. Abnormal bowel gas pattern most consistent with an ileus. 3. Bilateral percutaneous drainage catheters in place. 4. Cardiomegaly. Patient is status post median sternotomy. Armen Rodriguez MD Chest CT 09/01/17 0000 Signed Impressions: Service Date/Time: August 07:15 - CONCLUSION: No acute CT findings of the chest Juan Rivera MD PE at Discharge GENERAL: WN, WD male resting in bed in NAD. HEART: RRR with murmur along RSB with audible mechanical click. LUNGS: CTAB without wheezes or crackles. ABDOMEN: Midline laparotomy scar healing well, s/p staple removal. RAYMOND drain removed. +BS, soft, NT, ND. PEG tube in place with no surrounding erythema or drainage. EXTREMITIES: No LE edema. 2+ pedal pulses. NEURO: Awake and alert. Nonfocal. PSYCH: Appropriate mood and affect. Pt update on day of discharge Patient appears in no acute distress. Chair. Family at bedside. Denies any fever or chills no nausea vomiting no diarrhea or constipation. He had a normal bowel movement in the morning. He really wants to go home today says he feels much better. Discussed with infectious disease specialist Dr. Mohan. Patient for discharge. The patient was cleared by general surgery. Patient to follow-up as outpatient with PCP and consultants. Hospital Course 41 YOWM w/ history of MVR, AICD, endocarditis, hypertrophic cardiomyopathy, anxiety, and depression admitted on 09/01 for UGIB with coffee-ground emesis and acute blood loss anemia. Following EGD on 09/02 he became hemodynamically unstable and his abdomen became rock hard requiring emergent exploratory laparotomy with Jay patching of a 1 cm perforated duodenal ulcer, abdominal washout, and placement of a RAYMOND drain and feeding jejunostomy tube. He was transferred to the ICU where he was weaned off of mechanical ventilation but then subsequently developed acute hypoxemic respiratory failure requiring reintubation. He developed severe sepsis and infectious disease was consulted; he was treated with fluconazole and Zosyn. He was extubated on 09/13 and care was transferred to hospitalist service. Perforated duodenal ulcer - S/P ex-lap with Jay patching and washout, RAYMOND drain removal, - J-tube in place - Tolerating PO - Continues to be on Zosyn for massive contamination, discussed with ID, still with leukocytosis. - Protonix 40 mg PO BID - [place] PRN pain UGIB with acute blood loss anemia - EGD done on 09/02 showing ulcer of the duodenal bulb - Transfused a total of 6 units leukocyte-reduced RBCs and 4 units FFP - H&H stable - Hemodynamically stable History of mechanical mitral valve ([employer] [employer]) History of endocarditis History of HOCM s/p previous septal myectomy History of AICD Hypertension - Echo done on 09/03 demonstrated EF 65-70%, asymmetric septal hypertrophy consistent with hypertrophic cardiomyopathy with no significant LVOT gradient, aortic valve sclerosis, and mild-moderate AV regurg - On heparin drip, restarting Coumadin today, consider switching to therapeutic Lovenox while bridging to Coumadin if the patient will be going home prior to a therapeutic INR - HR and BP have been elevated, increase metoprolol to 50 mg PO BID Anxiety/depression - Continue aripiprazole and duloxetine - onopin PRN Diarrhea-likely antibiotic associated. C. difficile from 09/20/2007 and positive , patient was placed on Flagyl. However patient now saying that the stool sample was actually his son stool sample. The patient's son corroborated this story. Will stop Flagyl. Discussed with infectious disease. The patient's son will be brought to the primary care physician by the patient's . DVT prophylaxis: on heparin gtt, INR subtherapeutic, switch to Lovenox for now, possible discharge on Lovenox while awaiting INR to be therapeutic. The patient improved significantly. He is cleared by general surgery for discharge and also by infectious disease specialist. Discussed with Dr. Mohan no need of antibiotics at discharge per infectious disease. Patient is discharged home in stable condition to follow-up with PCP and consultants as outpatient Pt Condition on Discharge: Stable Discharge Disposition: Discharge Home Discharge Time: > 30 minutes Discharge Instructions DIET: Follow Instructions for: As Tolerated, No Restrictions Activities you can perform: Regular-No Restrictions Follow up Referrals: PCP Follow-up - 2-3 Days Surgical - 10/04/17 with Joel Watson MD Appt set for October 04 at 2:20PM New Orders: PT/INR - Daily New Medications: Enoxaparin Inj (Lovenox Inj) 60 Mg/0.6 Ml Syr 70 MG SQ BID for Blood Clot Prevention, #10 SYRINGE 0 Refills Hydrocodone/Acetaminophen (Hydrocodone-Acetamin 5-325 mg) 5 Mg-325 Mg Tablet 1 TAB PO Q6H PRN for pain 1-10, #28 TAB Pantoprazole (Pantoprazole) 40 Mg Tab 40 MG PO BID for ulcer, #60 TAB Continued Medications: Aripiprazole (Aripiprazole) 5 Mg Tab 5 MG PO BID for health for 30 Days, #60 TAB Atenolol (Atenolol) 50 Mg Tab 50 MG PO BID for Blood Pressure Management, #14 TAB [address] (Cymbalta ) 30 Mg Capdr 30 MG PO DAILY, #30 CAP 0 Refills Meloxicam (Mobic) 7.5 Mg Tab 7.5 MG PO DAILY for Pain, TAB 0 Refills Warfarin (Coumadin) 2.5 Mg Tab 2.5 MG PO DAILY for Prevent Blood Clot, #30 TAB 0 Refills Tiffanie Simpson MD Sep 21, 2017 13:55
[2017-09-21] MEDS ORDERED: HYDR-3516 PO (14:36)
[2017-09-21] MEDS ORDERED: PANT40TA3 PO (14:36)
[2017-09-21] MEDS ORDERED: ENOX60P SQ (14:36)
[2017-09-21] MEDS ORDERED: WARFARIN SOD 1 MG TAB PO ONE (16:00)
== END 2017-09-21 15:05 | disposition home health service (06) | DRG 853 ==
LOC: NEPE 05:30 → NEDA 07:35 → N07A 15:11 → N03B 09-02 18:59 → N03A 09-02 21:34 → N06A 09-15 03:00
PROVIDERS: ADMIT Hospitalist; ATTEND Hospitalist
PROC: 30233N1 Transfusion of Nonautologous Red Blood Cells into Peripheral Vein, Percutaneous Approach (ICD-10-PCS; 2017-09-01)
PROC: 5A1955Z Respiratory Ventilation, Greater than 96 Consecutive Hours (ICD-10-PCS; 2017-09-02)
PROC: 3E1038Z Irrigation of Skin and Mucous Membranes using Irrigating Substance, Percutaneous Approach (ICD-10-PCS; 2017-09-02)
PROC: 0DJ08ZZ Inspection of Upper Intestinal Tract, Via Natural or Artificial Opening Endoscopic (ICD-10-PCS; 2017-09-02)
PROC: 30233L1 Transfusion of Nonautologous Fresh Plasma into Peripheral Vein, Percutaneous Approach (ICD-10-PCS; 2017-09-02)
PROC: 0DU907Z Supplement Duodenum with Autologous Tissue Substitute, Open Approach (ICD-10-PCS; principal; 2017-09-02 16:33)
PROC: 0D9A00Z Drainage of Jejunum with Drainage Device, Open Approach (ICD-10-PCS; 2017-09-02 16:33)
PROC: 0BH17EZ Insertion of Endotracheal Airway into Trachea, Via Natural or Artificial Opening (ICD-10-PCS; 2017-09-03)
PROC: 0D2DXUZ Change Feeding Device in Lower Intestinal Tract, External Approach (ICD-10-PCS; 2017-09-14)
DX: A41.9 Sepsis, unspecified organism (principal); K26.6 Chronic or unspecified duodenal ulcer with both hemorrhage and perforation; R65.21 Severe sepsis with septic shock; J96.01 Acute respiratory failure with hypoxia; I47.2 Ventricular tachycardia; K65.9 Peritonitis, unspecified; I42.1 Obstructive hypertrophic cardiomyopathy; D62 Acute posthemorrhagic anemia; N17.9 Acute kidney failure, unspecified; Z99.11 Dependence on respirator [ventilator] status; E87.0 Hyperosmolality and hypernatremia; E46 Unspecified protein-calorie malnutrition; K56.7 Ileus, unspecified; K94.13 Enterostomy malfunction; I11.0 Hypertensive heart disease with heart failure; I50.9 Heart failure, unspecified; Z95.2 Presence of prosthetic heart valve; Z95.810 Presence of automatic (implantable) cardiac defibrillator; Z86.79 Personal history of other diseases of the circulatory system; F41.8 Other specified anxiety disorders; F10.10 Alcohol abuse, uncomplicated; I25.2 Old myocardial infarction; M19.90 Unspecified osteoarthritis, unspecified site; F17.210 Nicotine dependence, cigarettes, uncomplicated; Z79.01 Long term (current) use of anticoagulants; E86.0 Dehydration; K44.9 Diaphragmatic hernia without obstruction or gangrene; E87.6 Hypokalemia; D69.6 Thrombocytopenia, unspecified; G89.29 Other chronic pain; F12.90 Cannabis use, unspecified, uncomplicated; I48.91 Unspecified atrial fibrillation; T39.395A Adverse effect of other nonsteroidal anti-inflammatory drugs [NSAID], initial encounter; Y92.9 Unspecified place or not applicable
CPT/HCPCS: 31500; 36430; 49451; 71045; 71250; 74018; 74176; 74177; 76937; 80048; 80053; 80076; 81001; 82150; 82272; 82550; 82805; 83036; 83690; 83735; 84100; 84132; 84439; 84443; 84484; 85007; 85014; 85018; 85025; 85027; 85384; 85610; 85730; 86077; 86850; 86870; 86900; 86901; 86902; 86920; 86922; 86927; 87040; 87070; 87086; 87205; 87493; 93005; 93306; 94002; 94003; 94150; 96374; C1769; C9113; J0171; J0330; J0744; J1170; J1450; J1644; J1940; J1956; J2212; J2250; J2270; J2370; J2405; J2543; J2765; J3010; J3250; J3475; J3480; J7030; J7040; J7050; J7120; P9016; P9017; P9047; Q9963; Q9967

== ENCOUNTER 2017-11-09 11:23 | Inpatient (IN) | payer MEDICAID ==
[2017-11-09] VITALS (17 sets, daily range): BP systolic 80–108; BP diastolic 52–72; PULSE 69–160; RESP 12–20; TEMP 97.4–97.9; O2SAT 94–100
[~2017-11-09 11:23] MED LIST changes: -ABIL10TA8 PO; +ENOX60P SQ; +HYDR-3516 PO; +MOBI7.5T PO; +PANT40TA3 PO
[2017-11-09] MEDS ORDERED: SODIUM CHLORIDE 0.9% FLUSH 10 ML FLUSH IVF PRN (11:45)
[2017-11-09] MEDS ORDERED: SODIUM CHLOR 0.9% 1000 ML INJ 1,000 ML IV ONE ×2 (11:45→12:00)
[2017-11-09] MEDS ORDERED: ETOMIDATE 20 MG/10 ML VIAL IV PUSH ONE (12:00)
[2017-11-09 12:13] LABS: AUTOMATED NEUTROPHIL # 6.1 TH/MM3 (1.8-7.7); BASOPHIL # 0.1 TH/MM3 (0-0.2); BASOPHIL % 0.8 % (0.0-2.0); EOSINOPHIL # 0.2 TH/MM3 (0-0.4); EOSINOPHIL % 1.8 % (0.0-4.0); HEMATOCRIT 30.8 % (39.0-51.0); HEMOGLOBIN 10.3 GM/DL (13.0-17.0); LYMPH % 24.9 % (9.0-44.0); LYMPHOCYTE # 2.3 TH/MM3 (1.0-4.8); MEAN CELL VOLUME 89.4 FL (80.0-100.0); MEAN CORPUSCULAR HEMOGLOBIN 29.9 PG (27.0-34.0); MEAN CORPUSCULAR HGB CONC 33.4 % (32.0-36.0); MEAN PLATELET VOLUME 8.5 FL (7.0-11.0); MONO % 5.5 % (0.0-8.0); MONOCYTE # 0.5 TH/MM3 (0-0.9); PLATELET COUNT 187 TH/MM3 (150-450); RED BLOOD COUNT 3.44 MIL/MM3 (4.50-5.90); RED CELL DISTRIBUTION WIDTH 16.2 % (11.6-17.2); WHITE BLOOD COUNT 9.1 TH/MM3 (4.0-11.0)
[2017-11-09] MEDS ORDERED: ENOX60P SQ (12:17)
[2017-11-09] MEDS ORDERED: METO1TAB9 PO (12:17)
[2017-11-09] MEDS ORDERED: COUM5TAB PO ×3 (12:17→15:03)
[2017-11-09] MEDS ORDERED: POTA-163 PO (12:17)
[2017-11-09] MEDS ORDERED: FURO1TAB60 PO (12:17)
[2017-11-09] MEDS ORDERED: PERC10TA27 PO (12:17)
[2017-11-09 12:18] LABS: INTERNATIONAL NORMALIZED RATIO 2.5 RATIO; PROTHROMBIN TIME - PATIENT 25.7 SEC (9.8-11.6)
[2017-11-09 12:23] LABS: ALBUMIN 3.7 GM/DL (3.4-5.0); AST (GOT) 201 U/L (15-37); BICARBONATE 24.1 MEQ/L (21.0-32.0); BLOOD UREA NITROGEN 29 MG/DL (7-18); CALCIUM 8.2 MG/DL (8.5-10.1); CHLORIDE 105 MEQ/L (98-107); CREATININE 1.24 MG/DL (0.60-1.30); GLOMERULAR FILTRATION RATE 65 ML/MIN (>89); GLUCOSE,RANDOM 133 MG/DL (74-106); MAGNESIUM 1.7 MG/DL (1.5-2.5); SODIUM (NA) 141 MEQ/L (136-145)
[2017-11-09 12:28] LABS: ALKALINE PHOSPHATASE 107 U/L (45-117); ALT (GPT) 179 U/L (12-78); TOTAL PROTEIN 6.9 GM/DL (6.4-8.2); TROPONIN I 0.41 NG/ML (0.02-0.05)
--- NOTE | 2017-11-09 12:38 | PD ---
HPI Chief Complaint: Cardiac Complaint Time Seen by Provider: 11:40 Travel History International Travel<30 days: No Contact w/Intl Traveler<30days: No Traveled to known affect area: No History of Present Illness HPI Patient is a 42-year-old male with history of mitral valve replacement, [employer] 's AICD, endocarditis, hypertrophic cardiomyopathy, presents the emergency room with complaints of palpitations. Patient reports that he went to his physician' s office yesterday morning and felt fine, reports that he came home around 2 PM and was chasing around his dog and began to have palpitations. Reports that he called his regulatory affairs strategy specialist, Dr. Newell who instructed him to come into the ER for evaluation. PFSH Past Medical History Hx Anticoagulant Therapy: Yes Arthritis: Yes (HAND) Atrial Fibrillation: Yes Blood Disorders: Yes (BLEEDING WHEN BRUSHING TEETH SCRATCH OF L TIBIAL AREA WITH BLEEDING DRSG ON) Anxiety: Yes Depression: Yes Heart Rhythm Problems: Yes (HOLCM, patient has congential heart defects and had endocarditis r/t dental) Cancer: No Cardiovascular Problems: Yes (OPEN HEART X 2 ) High Cholesterol: No Chemotherapy: No Chest Pain: Yes Congestive Heart Failure: Yes COPD: No Cerebrovascular Accident: No Diabetes: No Diminished Hearing: No Endocrine: No Genitourinary: No Headaches: No Hypertension: Yes Immune Disorder: No Musculoskeletal: Yes Neurologic: Yes Psychiatric: Yes (depression since heart surgery) Reproductive: No Migraines: No Myocardial Infarction: Yes Radiation Therapy: No Seizures: No Sleep Apnea: No ?: Not Past Surgical History Abdominal Surgery: No AICD: Yes Arteriovenous Shunt: No Body Medical Devices: WAS TOLD HE HAS ANOTHER LEAKY VALVE Cardiac Surgery: Yes ( MITRAL VALVE REPLACEMENT 2000; AICD 2013; 08/27 SEPTOMYOMECTOMY) Ear Surgery: No Endocrine Surgery: No Eye Surgery: No Genitourinary Surgery: No Insulin Pump: No Joint Replacement: No Neurologic Surgery: No Oral Surgery: No Pacemaker: Yes Thoracic Surgery: No Valve Replacement: Yes (MITRAL VALVE SURGERY ) Other Surgery: Yes (peg tube placed ) Social History Alcohol Use: No (QUIT) Tobacco Use: No Substance Use: No Allergies-Medications (Allergen,Severity, Reaction): Coded Allergies: haloperidol (Unverified Allergy, Severe, DYSTONIC REACTION, 09/01/17) lorazepam (Unverified Allergy, Severe, SEVERE AGITATION, 09/01/17) promethazine (Unverified Allergy, Severe, SEVERE AGITATION, 09/01/17) zolpidem (Unverified Allergy, Severe, severe agitation, 09/01/17) Reported Meds & Prescriptions Reported Meds & Active Scripts Active Aripiprazole 5 Mg Tab 5 Mg PO BID [address] (Duloxetine HCl) 30 Mg Capdr 30 Mg PO DAILY Atenolol 50 Mg Tab 50 Mg PO BID Reported Metoprolol Succinate ER 24 HR (Metoprolol Succinate) 50 Mg Tab 50 Mg PO DAILY Lasix (Furosemide) 40 Mg Tab 40 Mg PO DAILY PRN Potassium Chloride ER (Potassium Chloride) 20 Meq Tab 20 Meq PO DAILY Coumadin (Warfarin) 5 Mg Tab 2.5 Mg PO TUESDAY Take 1/2 tablet (2.5mg) daily on Fridays Coumadin (Warfarin) 5 Mg Tab 5 Mg PO SUMOTUWETHSA Take 1 tablet (5mg) daily on Tuesday,Tuesday,Tuesday,Tuesday, and Tuesday Percocet (Oxycodone-Acetaminophen) 10-325 mg Tab 1 Tab PO Q4-6H PRN Lovenox Inj (Enoxaparin Sodium) 60 Mg/0.6 Ml Syr 60 Mg SQ BID Review of Systems Cardiovascular: Positive: Palpitations, Irregular Rhythm, Tachycardia Physical Exam Narrative GENERAL: pt in severe distress SKIN: Focused skin assessment warm/dry. HEAD: Atraumatic. Normocephalic. EYES: Pupils equal and round. No scleral icterus. No injection or drainage. ENT: No nasal bleeding or discharge. Mucous membranes pink and moist. NECK: Trachea midline. No JVD. CARDIOVASCULAR: tachycardic. No murmur appreciated. RESPIRATORY: No accessory muscle use. Clear to auscultation. Breath sounds equal bilaterally. GASTROINTESTINAL: Abdomen soft, non-tender, nondistended. Hepatic and splenic margins not palpable. MUSCULOSKELETAL: No obvious deformities. No clubbing. No cyanosis. No edema. NEUROLOGICAL: Awake and alert. No obvious cranial nerve deficits. Motor grossly within normal limits. Normal speech. PSYCHIATRIC: Appropriate mood and affect; insight and judgment normal. Data Data Last Documented VS Vital Signs Date Time Temp Pulse Resp B/P (MAP) Pulse Ox O2 Delivery O2 Flow Rate FiO2 11/09/17 12:53 78 15 87/56 (66) 100 Nasal Cannula 2.00 11/09/17 11:29 97.5 Orders Orders Electrocardiogram (11/09/17 11:42) Ckmb (Isoenzyme) Profile (11/09/17 11:42) Complete Blood Count With Diff (11/09/17 11:42) Comprehensive Metabolic Panel (11/09/17 11:42) Magnesium (Mg) (11/09/17 11:42) Prothrombin Time / Inr (Pt) (11/09/17 11:42) Act Partial Throm Time (Ptt) (11/09/17 11:42) Troponin I (11/09/17 11:42) Chest, Single Ap (11/09/17 11:42) Ecg Monitoring (11/09/17 11:42) Bilateral Bp Monitoring (11/09/17 11:42) Iv Access Insert/Monitor (11/09/17 11:42) Oximetry (11/09/17 11:42) Oxygen Administration (11/09/17 11:42) Sodium Chloride 0.9% Flush (Ns Flush) (11/09/17 11:45) Sodium Chlor 0.9% 1000 Ml Inj (Ns 1000 M (11/09/17 11:45) Lactic Acid (11/09/17 11:45) Sodium Chlor 0.9% 1000 Ml Inj (Ns 1000 M (11/09/17 12:00) Etomidate Inj (Amidate Inj) (11/09/17 12:00) CKMB (11/09/17 11:52) CKMB% (11/09/17 11:52) Labs Laboratory Tests Test 11/09/17 11:52 White Blood Count 9.1 TH/MM3 Red Blood Count 3.44 MIL/MM3 Hemoglobin 10.3 GM/DL Hematocrit 30.8 % Mean Corpuscular Volume 89.4 FL Mean Corpuscular Hemoglobin 29.9 PG Mean Corpuscular Hemoglobin Concent 33.4 % Red Cell Distribution Width 16.2 % Platelet Count 187 TH/MM3 Mean Platelet Volume 8.5 FL Neutrophils (%) (Auto) 67.0 % Lymphocytes (%) (Auto) 24.9 % Monocytes (%) (Auto) 5.5 % Eosinophils (%) (Auto) 1.8 % Basophils (%) (Auto) 0.8 % Neutrophils # (Auto) 6.1 TH/MM3 Lymphocytes # (Auto) 2.3 TH/MM3 Monocytes # (Auto) 0.5 TH/MM3 Eosinophils # (Auto) 0.2 TH/MM3 Basophils # (Auto) 0.1 TH/MM3 CBC Comment DIFF FINAL Differential Comment Prothrombin Time 25.7 SEC Prothromb Time International Ratio 2.5 RATIO Activated Partial Thromboplast Time 33.1 SEC Blood Urea Nitrogen 29 MG/DL Creatinine 1.24 MG/DL Random Glucose 133 MG/DL Total Protein 6.9 GM/DL Albumin 3.7 GM/DL Calcium Level 8.2 MG/DL Magnesium Level 1.7 MG/DL Alkaline Phosphatase 107 U/L Aspartate Amino Transf (AST/SGOT) 201 U/L Alanine Aminotransferase (ALT/SGPT) 179 U/L Total Bilirubin 1.0 MG/DL Sodium Level 141 MEQ/L Potassium Level 3.6 MEQ/L Chloride Level 105 MEQ/L Carbon Dioxide Level 24.1 MEQ/L Anion Gap 12 MEQ/L Estimat Glomerular Filtration Rate 65 ML/MIN Lactic Acid Level 2.0 mmol/L Total Creatine Kinase 139 U/L Creatine Kinase MB 6.8 NG/ML Troponin I 0.41 NG/ML MDM Medical Decision Making Medical Screen Exam Complete: Yes Emergency Medical Condition: Yes Medical Record Reviewed: Yes Interpretation(s) Vital Signs Date Time Temp Pulse Resp B/P (MAP) Pulse Ox O2 Delivery O2 Flow Rate FiO2 11/09/17 12:13 75 12 101/62 (75) 100 Nasal Cannula 2.00 11/09/17 11:58 158 18 83/55 (64) 100 Nasal Cannula 2.00 11/09/17 11:48 160 18 88/55 (66) 99 Room Air 11/09/17 11:29 97.5 160 20 80/60 (67) 100 EKG at 1130: White complex ventricular tachycardia at 160 bpm EKG at 1213 after synchronized cardioversion: Normal sinus rhythm at 70 bpm, QT/ QTc 455/488 Differential Diagnosis Arrhythmia, ventricular tachycardia, A. fib Narrative Course Patient is a 42-year-old male who presents the emergency room with complaints of tachycardia which has been ongoing since 2 PM yesterday. During the course of the patients emergency department visit, the patients history, examination, and differential diagnosis were reviewed with the patient. The patient was placed on a radiation monitor with oximetry and frequent blood pressure monitoring. The patient had an IV access obtained and blood work sent for analysis. An EKG was obtained as patient was hypotensive and tachycardic with a heart rate in the 160s, patient was found to have wide complex tachycardia with a heart rate in the 160s. Patient reports that he is currently anticoagulated on Coumadin as he has history of mitral valve repair, he also has a [employer] AICD Discussed with patient need to emergent cardioversion given his hypotension and tachycardia, patient initially refused medications/cardioversion until I spoke with his regulatory affairs strategy specialist I did call Dr. Newell (regulatory affairs strategy specialist at [phone]) who was in agreement with my plan of care. Given his unstable vital signs, plan for emergent cardioversion with synchronized 100 J. Patient was agreeable to cardioversion after my discussion with Dr. Newell. Patient had synchronized cardioversion with 100 J - patient had return to NSR after - VSS after cardioversion A call was made to [facility] to interrogate patient's pacemaker. Dr. Newell does not want amiodarone started at this time, would like to see if patient has SVT vs VT, if SVT, he would prefer an ablation and if patient has VT then he would prefer sotalol to avoid nursing home side effects from amio. The patients laboratory studies were reviewed and remarkable for Laboratory Tests Test 11/09/17 11:52 White Blood Count 9.1 TH/MM3 (4.0-11.0) Red Blood Count 3.44 MIL/MM3 (4.50-5.90) Hemoglobin 10.3 GM/DL (13.0-17.0) Hematocrit 30.8 % (39.0-51.0) Mean Corpuscular Volume 89.4 FL (80.0-100.0) Mean Corpuscular Hemoglobin 29.9 PG (27.0-34.0) Mean Corpuscular Hemoglobin Concent 33.4 % (32.0-36.0) Red Cell Distribution Width 16.2 % (11.6-17.2) Platelet Count 187 TH/MM3 (150-450) Mean Platelet Volume 8.5 FL (7.0-11.0) Neutrophils (%) (Auto) 67.0 % (16.0-70.0) Lymphocytes (%) (Auto) 24.9 % (9.0-44.0) Monocytes (%) (Auto) 5.5 % (0.0-8.0) Eosinophils (%) (Auto) 1.8 % (0.0-4.0) Basophils (%) (Auto) 0.8 % (0.0-2.0) Neutrophils # (Auto) 6.1 TH/MM3 (1.8-7.7) Lymphocytes # (Auto) 2.3 TH/MM3 (1.0-4.8) Monocytes # (Auto) 0.5 TH/MM3 (0-0.9) Eosinophils # (Auto) 0.2 TH/MM3 (0-0.4) Basophils # (Auto) 0.1 TH/MM3 (0-0.2) CBC Comment DIFF FINAL Differential Comment Prothrombin Time 25.7 SEC (9.8-11.6) Prothromb Time International Ratio 2.5 RATIO Activated Partial Thromboplast Time 33.1 SEC (24.3-30.1) Blood Urea Nitrogen 29 MG/DL (7-18) Creatinine 1.24 MG/DL (0.60-1.30) Random Glucose 133 MG/DL (74-106) Total Protein 6.9 GM/DL (6.4-8.2) Albumin 3.7 GM/DL (3.4-5.0) Calcium Level 8.2 MG/DL (8.5-10.1) Magnesium Level 1.7 MG/DL (1.5-2.5) Alkaline Phosphatase 107 U/L (45-117) Aspartate Amino Transf (AST/SGOT) 201 U/L (15-37) Alanine Aminotransferase (ALT/SGPT) 179 U/L (12-78) Total Bilirubin 1.0 MG/DL (0.2-1.0) Sodium Level 141 MEQ/L (136-145) Potassium Level 3.6 MEQ/L (3.5-5.1) Chloride Level 105 MEQ/L (98-107) Carbon Dioxide Level 24.1 MEQ/L (21.0-32.0) Anion Gap 12 MEQ/L (5-15) Estimat Glomerular Filtration Rate 65 ML/MIN (>89) Lactic Acid Level 2.0 mmol/L (0.4-2.0) Total Creatine Kinase 139 U/L (39-308) Creatine Kinase MB 6.8 NG/ML (0.5-3.6) Troponin I 0.41 NG/ML (0.02-0.05) Patient currently back into normal sinus rhythm. Patient will be admitted to the lime mixer service for further workup and monitoring. [facility]. I did review case with Dr. Cr who accepts pt to her service Critical Care Narrative Aggregate critical care time was 45 minutes. Time to perform other separately billable procedures was not included in the critical care time. My time did not include minutes spent treating any other patients simultaneously or on activities that did not directly contribute to the patient's treatment. The services I provided to this patient were to treat and/or prevent clinically significant deterioration that could result in: , decompensation, deterioration I provided critical care services requiring my management, as noted below: Chart data review, documentation time, medication orders and management, vital sign assessments/reviewing monitor data, ordering and reviewing lab tests, ordering and interpreting/reviewing x-rays and diagnostic studies, care of the patient and discussion of the patient with the admitting physicians. Procedures Procedure Narrative Synchronized cardioversion for Ventricular Tachycardia Patient gave verbal consent for cardioversion, emergent consent was implied as patient had unstable VS Etomidate 10 mg was given for sedation as patient reported an allergy to Lorazepam. Patient was placed on a radiation monitor, respiratory therapist at bedside, patient had successful synchronized cardioversion with 100 J Patient tolerated procedure well. After the risks and benefits were discussed the following procedure was performed: MODERATE SEDATION: The patient was placed on a radiation monitor and pulse oximetry. An ambu bag and suction was immediately available at bedside. The patient was monitored by the nurse. Oxygen saturation , heart rate and blood pressure were monitored. Procedural sedation was acheived using 10 mg of etomidate. The patient was observed until awake and alert. Procedural Sedation time in attendance was 20 minutes. Diagnosis Primary Impression: Ventricular tachycardia Admitting Information Admitting Physician Requests: Marily Franco DO November 09, 2017 12:38
--- NOTE | 2017-11-09 13:26 | RADRPT ---
EXAM DATE: 11/09/2017 1:05 PM EDT AGE/SEX: 42 years / Male INDICATIONS: Chest pain. CLINICAL DATA: This is the patient's initial encounter. Patient reports that signs and symptoms have been present for 1 day and indicates a pain score of 0/10. MEDICAL/SURGICAL HISTORY: . a-fib, endocarditis Pacemaker. Defibrillator. mitral valve replac ement. [place] [facility] [place]. . FINDINGS: Pacemaker left chest. Previous mitral valve left chest. Moderate compensated cardiomegaly. No infiltr ate, pneumothorax or significant failure. Sternal wires from previous bypass. The portion of the bony skeleton visualized is unremarkable. CONCLUSION: Moderate compensated cardiomegaly Pacemaker Electronically signed by: Jaime Lozada MD 11/09/2017 1:24 PM EDT
[2017-11-09] MEDS ORDERED: ABIL10TA8 PO (15:03)
[2017-11-09] MEDS ORDERED: CYMB60CA PO (15:03)
[2017-11-09] MEDS ORDERED: PANT40TA3 PO (15:03)
[2017-11-09] MEDS ORDERED: CEPH500T PO (15:03)
[2017-11-09] MEDS ORDERED: CLON.5 PO (15:03)
[2017-11-09] MEDS ORDERED: SERO300T PO (15:03)
[2017-11-09] MEDS ORDERED: CHLORHEXIDINE GLUCONATE 2 % 1 PACK (2 CLOTHS) TOP PRN (15:30)
[2017-11-09] MEDS ORDERED: MAGNESIUM SULFATE INJ 2 GM in SODIUM CHLORIDE 0.9% INJ 96 ML IV PRN (15:30)
[2017-11-09] MEDS ORDERED: POTASSIUM PHOSPHATE MONOBASIC 500 MG TAB PO/TUBE PRN (15:30)
[2017-11-09] MEDS ORDERED: ATENOLOL 50 MG TAB PO ONE (15:30)
[2017-11-09] MEDS ORDERED: POTASSIUM PHOSPHATE MONOBASIC 500 MG TAB PO PRN (15:30)
[2017-11-09] MEDS ORDERED: ACETAMINOPHEN 325 MG TAB PO PRN (15:30)
[2017-11-09] MEDS ORDERED: MAGNESIUM OXIDE 400 MG TAB PO PRN (15:30)
[2017-11-09] MEDS ORDERED: POTASSIUM CHLOR 40 MEQ PREMIX 100 ML IV PRN ×2 (15:30)
[2017-11-09] MEDS ORDERED: DEXTROSE 50% IN WATER 50 ML VIAL(D50) IV PUSH PRN (15:30)
[2017-11-09] MEDS ORDERED: RESP: ALBUTEROL 2.5 MG/IPRATROPIUM 0.5 MG NEB (PRN) INH (15:30)
[2017-11-09] MEDS ORDERED: POTASSIUM PHOSPHATE INJ 30 MMOL in SODIUM CHLOR 0.9% 250 ML INJ 250 ML IV PRN (15:30)
[2017-11-09] MEDS ORDERED: BISACODYL 10 MG SUPP RECTAL PRN (15:30)
[2017-11-09] MEDS ORDERED: GLUCAGON 1 MG/ML VIAL OTHER PRN (15:30)
[2017-11-09] MEDS ORDERED: NURSING INFORMATION XX SCH (15:30)
[2017-11-09] MEDS ORDERED: MAGNESIUM HYDROXIDE SUSP 30 ML CUP PO PRN (15:30)
[2017-11-09] MEDS ORDERED: POTASSIUM CHLORIDE 25 MEQ EFFERVESCENT TAB PO PRN (15:30)
[2017-11-09] MEDS ORDERED: SODIUM PHOSPHATE INJ 30 MMOL in SODIUM CHLOR 0.9% 250 ML INJ 240 ML IV PRN (15:30)
[2017-11-09] MEDS ORDERED: POTASSIUM CHLOR 20 MEQ PREMIX 100 ML IV PRN ×2 (15:30)
[2017-11-09] MEDS ORDERED: MAGNESIUM SULFATE INJ 4 GM in SODIUM CHLORIDE 0.9% INJ 92 ML IV PRN (15:30)
[2017-11-09] MEDS ORDERED: LACTULOSE SYRUP 20 GM/30 ML CUP PO PRN (15:30)
[2017-11-09] MEDS ORDERED: SODIUM CHLORIDE 0.9% FLUSH 10 ML FLUSH IV FLUSH PRN (15:30)
[2017-11-09] MEDS ORDERED: SENNOSIDES 8.6 MG TAB PO PRN (15:30)
--- NOTE | 2017-11-09 16:04 | HHI.HP ---
HPI Service Critical Care Medicine Primary Care Physician Unknown Admission Diagnosis Ventricular tachycardia Diagnosis: Travel History International Travel<30 Days: No Contact w/Intl Traveler <30 Da: No Traveled to Known Affected Are: No History of Present Illness HPI This is a 42-year-old male with history of mitral valve replacement, [employer] AICD, endocarditis, hypertrophic cardiomyopathy, presents the emergency room with complaints of palpitations. Upon admission to the ED the patient was noted to have a heart rate in the 170's, and hemodynamically unstable. Patient underwent synchronized defibrillation 1. Patient converted to sinus rhythm with systolic blood pressure in the 90's. The patient's personal water safety teacher is , [facility] . The patient is noted to have a single lead AICD [employer] device, that was interrogated in the ED. Discussion with Dr. Newell, patient's personal physician is a single lead device unable to really ascertain SVT versus V. tach on EKG. critical care medicine was consulted. I contacted Dr. Newell, discussed case, previous discussion provided by Dr. Marily Xavier with EKG results shown to him. Per Dr. Newell no antiarrhythmics recommended, possibly have a negative effect. Plan to increase patient's beta blockers to atenolol 100 mg/day. Patient received 50 mg this a.m. 50 mg given in the ED. the patient begins to deteriorate per Dr. Newell, the patient is to be transported/transferred to [facility] for further managment. I contacted Dr. Mohan water safety teacher formation fracturing operator, provided the above information. patient to be transferred to [facility]. The patient's medical history is also significant for the fact that the patient was admitted 08/2017 with GI bleeding and remained hospitalized here at [facility] for approximately 4 weeks. The patient currently is alert and oriented hemodynamically stable systolic blood pressure in the low 90's. History PFSH Past Medical History Hx Anticoagulant Therapy: Yes Arthritis: Yes (HAND) Atrial Fibrillation: Yes Blood Disorders: Yes (BLEEDING WHEN BRUSHING TEETH SCRATCH OF L TIBIAL AREA WITH BLEEDING DRSG ON) Anxiety: Yes Depression: Yes Heart Rhythm Problems: Yes (HOLCM, patient has congential heart defects and had endocarditis r/t dental) Cancer: No Cardiovascular Problems: Yes (OPEN HEART X 2 ) High Cholesterol: No Chemotherapy: No Chest Pain: Yes Congestive Heart Failure: Yes COPD: No Cerebrovascular Accident: No Diabetes: No Diminished Hearing: No Endocrine: No Genitourinary: No Headaches: No Hypertension: Yes Immune Disorder: No Musculoskeletal: Yes Neurologic: Yes Psychiatric: Yes (depression since heart surgery) Reproductive: No Migraines: No Myocardial Infarction: Yes Radiation Therapy: No Seizures: No Sleep Apnea: No ?: Not Past Surgical History Abdominal Surgery: No AICD: Yes Arteriovenous Shunt: No Body Medical Devices: WAS TOLD HE HAS ANOTHER LEAKY VALVE Cardiac Surgery: Yes ( MITRAL VALVE REPLACEMENT 2000; AICD 2013; 08/27 SEPTOMYOMECTOMY) Ear Surgery: No Endocrine Surgery: No Eye Surgery: No Genitourinary Surgery: No Insulin Pump: No Joint Replacement: No Neurologic Surgery: No Oral Surgery: No Pacemaker: Yes Thoracic Surgery: No Valve Replacement: Yes (MITRAL VALVE SURGERY ) Other Surgery: Yes (peg tube placed ) Social History Alcohol Use: No (QUIT) Tobacco Use: No Substance Use: No Allergies-Medications Allergies-Medications (Allergen,Severity, Reaction): Coded Allergies: haloperidol (Unverified Allergy, Severe, DYSTONIC REACTION, 09/01/17) lorazepam (Unverified Allergy, Severe, SEVERE AGITATION, 09/01/17) promethazine (Unverified Allergy, Severe, SEVERE AGITATION, 09/01/17) zolpidem (Unverified Allergy, Severe, severe agitation, 09/01/17) Reported Meds & Prescriptions Reported Meds & Active Scripts Active Aripiprazole 5 Mg Tab 5 Mg PO BID [address] (Duloxetine HCl) 30 Mg Capdr 30 Mg PO DAILY Atenolol 50 Mg Tab 50 Mg PO BID Reported Metoprolol Succinate ER 24 HR (Metoprolol Succinate) 50 Mg Tab 50 Mg PO DAILY Lasix (Furosemide) 40 Mg Tab 40 Mg PO DAILY PRN Potassium Chloride ER (Potassium Chloride) 20 Meq Tab 20 Meq PO DAILY Coumadin (Warfarin) 5 Mg Tab 2.5 Mg PO TUESDAY Take 1/2 tablet (2.5mg) daily on Fridays Coumadin (Warfarin) 5 Mg Tab 5 Mg PO SUMOTUWETHSA Take 1 tablet (5mg) daily on Tuesday,Tuesday,Tuesday,Tuesday, and Tuesday Percocet (Oxycodone-Acetaminophen) 10-325 mg Tab 1 Tab PO Q4-6H PRN Lovenox Inj (Enoxaparin Sodium) 60 Mg/0.6 Ml Syr 60 Mg SQ BID ROS Review of Systems Cardiovascular: Positive: Palpitations, Irregular Rhythm, Tachycardia Physical Exam Vital Signs Vital Signs Date Time Temp Pulse Resp B/P (MAP) Pulse Ox O2 Delivery O2 Flow Rate FiO2 11/09/17 14:29 75 16 95/65 (75) 99 Room Air 11/09/17 13:42 75 14 89/55 (66) 100 Room Air 11/09/17 13:17 86 15 94/52 (66) 100 Room Air 11/09/17 12:53 78 15 87/56 (66) 100 Nasal Cannula 2.00 11/09/17 12:30 74 13 90/60 (70) 100 Nasal Cannula 2.00 11/09/17 12:24 100 2.00 11/09/17 12:24 100 Nasal Cannula 2.00 11/09/17 12:24 100 11/09/17 12:13 75 12 101/62 (75) 100 Nasal Cannula 2.00 11/09/17 11:58 158 18 83/55 (64) 100 Nasal Cannula 2.00 11/09/17 11:48 160 18 88/55 (66) 99 Room Air 11/09/17 11:29 97.5 160 20 80/60 (67) 100 Physical Exam GENERAL: This is a well-developed well-nourished male alert and SKIN: Warm and dry. HEAD: Atraumatic. Normocephalic. EYES: Pupils equal and round. No scleral icterus. No injection or drainage. ENT: No nasal bleeding or discharge. Mucous membranes pink and moist. NECK: Trachea midline. No JVD. CARDIOVASCULAR: Tachycardic rate, regular rhythm. RESPIRATORY: No accessory muscle use. Clear to auscultation. Breath sounds equal bilaterally. GASTROINTESTINAL: Abdomen soft, non-tender, nondistended. No guarding. G-tube in situ with sutures no erythema or drainage MUSCULOSKELETAL: Extremities without clubbing, cyanosis, or edema. No obvious deformities. NEUROLOGICAL: Awake and alert. RASS 0. No gross focal/sensory deficits. Follows commands in all 4 extremities. Laboratory Laboratory Tests Test 11/09/17 11:52 White Blood Count 9.1 Red Blood Count 3.44 Hemoglobin 10.3 Hematocrit 30.8 Mean Corpuscular Volume 89.4 Mean Corpuscular Hemoglobin 29.9 Mean Corpuscular Hemoglobin Concent 33.4 Red Cell Distribution Width 16.2 Platelet Count 187 Mean Platelet Volume 8.5 Neutrophils (%) (Auto) 67.0 Lymphocytes (%) (Auto) 24.9 Monocytes (%) (Auto) 5.5 Eosinophils (%) (Auto) 1.8 Basophils (%) (Auto) 0.8 Neutrophils # (Auto) 6.1 Lymphocytes # (Auto) 2.3 Monocytes # (Auto) 0.5 Eosinophils # (Auto) 0.2 Basophils # (Auto) 0.1 CBC Comment DIFF FINAL Differential Comment Prothrombin Time 25.7 Prothromb Time International Ratio 2.5 Activated Partial Thromboplast Time 33.1 Blood Urea Nitrogen 29 Creatinine 1.24 Random Glucose 133 Total Protein 6.9 Albumin 3.7 Calcium Level 8.2 Magnesium Level 1.7 Alkaline Phosphatase 107 Aspartate Amino Transf (AST/SGOT) 201 Alanine Aminotransferase (ALT/SGPT) 179 Total Bilirubin 1.0 Sodium Level 141 Potassium Level 3.6 Chloride Level 105 Carbon Dioxide Level 24.1 Anion Gap 12 Estimat Glomerular Filtration Rate 65 Lactic Acid Level 2.0 Total Creatine Kinase 139 Creatine Kinase MB 6.8 Troponin I 0.41 Result Diagram: 11/09/17 1152 11/09/17 1152 Imaging Last Impressions Chest X-Ray 11/09/17 1142 Signed Impressions: CONCLUSION: Moderate compensated cardiomegaly Pacemaker Septic Shock Reassessment Septic shock perfusion: reassessment completed Caprini VTE Risk Assessment Caprini VTE Risk Assessment: Mod/High Risk (score >= 2) Caprini Risk Assessment Model Point Value = 1 Point Value = 2 Point Value = 3 Point Value = 5 Age 41-60 Minor surgery BMI > 25 kg/m2 Swollen legs Varicose veins or History of unexplained or recurrent spontaneous Oral contraceptives or hormone replacement Sepsis (< 1 month) Serious lung disease, including pneumonia (< 1 month) Abnormal pulmonary function Acute myocardial infarction Congestive heart failure (< 1 month) History of inflammatory bowel disease Medical patient at bed rest Age 61-74 Arthroscopic surgery Major open surgery (> 45 min) Laparoscopic surgery (> 45 min) Malignancy Confined to bed (> 72 hours) Immobilizing plaster cast Central venous access Age >= 75 History of VTE Family history of VTE Factor V Leiden Prothrombin [id number] Lupus anticoagulant Anticardiolipin antibodies Elevated serum homocysteine Heparin-induced thrombocytopenia Other congenital or acquired thrombophilia Stroke (< 1 month) Elective arthroplasty Hip, pelvis, or leg fracture Acute spinal cord injury (< 1 month) Prophylaxis Regimen Total Risk Factor Score Risk Level Prophylaxis Regimen 0-1 Low Early ambulation 2 Moderate Order ONE of the following: *Sequential Compression Device (SCD) *Heparin 5000 units SQ BID 3-4 Higher Order ONE of the following medications: *Heparin 5000 units SQ TID *Enoxaparin/Lovenox 40 mg SQ daily (WT < 150 kg, CrCl > 30 mL/min) *Enoxaparin/Lovenox 30 mg SQ daily (WT < 150 kg, CrCl > 10-29 mL/min) *Enoxaparin/Lovenox 30 mg SQ BID (WT < 150 kg, CrCl > 30 mL/min) AND/OR *Sequential Compression Device (SCD) 5 or more Highest Order ONE of the following medications: *Heparin 5000 units SQ TID (Preferred with Epidurals) *Enoxaparin/Lovenox 40 mg SQ daily (WT < 150 kg, CrCl > 30 mL/min) *Enoxaparin/Lovenox 30 mg SQ daily (WT < 150 kg, CrCl > 10-29 mL/min) *Enoxaparin/Lovenox 30 mg SQ BID (WT < 150 kg, CrCl > 30 mL/min) AND *Sequential Compression Device (SCD) Assessment and Plan Problem List: (1) Ventricular tachycardia ICD Code: I47.2 - Ventricular tachycardia Status: Acute (2) Hypertrophic cardiomyopathy ICD Code: I42.2 - Hypertrophic cardiomyopathy Status: Acute Permanent Comment: Dr. Newell [facility]. Stress-echo Last Edited By: Ozzy Edwards on May 26, 2014 13:05 (3) S/P MVR (mitral valve replacement) ICD Code: Z95.4 - S/P MVR (mitral valve replacement) Status: Chronic Permanent Comment: Need prophyllaxis - Due to endocarditis Last Edited By: Ozzy Edwards on May 26, 2014 13:06 (4) AICD (automatic cardioverter/defibrillator) present ICD Code: Z95.810 - AICD (automatic cardioverter/defibrillator) present Status: Chronic (5) H/O mitral valve replacement with mechanical valve ICD Code: Z95.2 - Presence of prosthetic heart valve Status: Chronic (6) Status post exploratory laparotomy ICD Code: Z98.890 - Other specified postprocedural states Status: Acute (7) Chronic anticoagulation ICD Code: Z79.01 - residential (current) use of anticoagulants Status: Chronic Assessment and Plan Assessment This is a 69-year-old male with significant medical history for hypertrophic cardiomyopathy mitral valve replacement/mechanical, arrhythmia SVT versus V. tach with single lead [employer] AICD in situ. Status post synchronized defibrillation 1. Admit to ICU. Plan by systems: Neurologic: Anxiety Depression Continue patient's home meds Klonopin 0.5 mg 3 times daily, Cymbalta 60 mg/day, Abilify 10 mg/day Tylenol 650 mg for temperature greater than 101.0 [place] 7.5/325 as needed for breakthrough pain 8-10 Respiratory: Maintain O2 sat greater than 92% Provide O2 1-4 L/min Incentive spirometry Duo nebs every 4 hours as needed Cardiovascular: H/O mitral valve replacement-mechanical [employer] AICD SVT vs. Vtach History of hypertension Increase atenolol to 100 mg/ Patient takes furosemide 40 mg daily as needed will hold for now 11/09-synchronized defibrillation 1 in the ED, 100 J His personal physician is Dr. Newell [facility], Discussed with Dr. Newell plan for increase atenolol to 100 mg/day, the patient continues to deteriorate during the night plan for transfer to [facility], he has accepted the patient he is medical office professional instructor of the cardiologyunit Cardiology consulted-I discussed the case with Dr. Mohan Atenolol 100 mg/day AICD to be interrogated, adjustments made by Dr. Newell-see report Renal: No Donaldson indicated at this time -- Strict I/Os FEN/GI: GERD G-tube Status post ex lap 08/2017 Continue Protonix 40 mg twice daily Bowel regimen Zofran for nausea NPO for now Patient has home dosing of Lasix 40 mg/day as needed will hold for now Magnesium level 1.7-give mag 1 g IVP Heme/ID: Chronic anticoagulation Monitor CBC Continue warfarin 5 mg/day-monitor INR, INR 2.5 Endocrine: Glucose monitoring per ICU protocol -- SSI Prophylaxis: GI Prophylaxis Protonix twice daily DVT Prophylaxis -- SCDs Patient on Coumadin Lines: Peripheral IVs x2 Dispo: my billing statement This patient remains critically ill with one or more organ systems which are or may become a threat to life. I have spent in excess of 60 minutes discontinuously in the care and management of this patient. This time is exclusive of procedures, and includes, but is not limited to, evaluation of the patient, review of the medical record, discussions with family, consultants, nursing staff, or respiratory therapy, and documentation in the medical record. Code Status Full Discussed Condition With Dr. Zaida Xavier, Dr. Mohan, Dr. Newell, Patient and patient's , METAL GRADER at bedside Luana Cr MD November 09, 2017 16:04
[2017-11-09] MEDS ORDERED: MAGNESIUM SULFATE 1 GM PREMIX 100 ML IV ONE (16:30)
[2017-11-09] MEDS: INSULIN ASPART SUPPLEMENTAL SCALE SQ SCH ×2 (17:00→20:03)
[2017-11-09] MEDS: clonazePAM 0.5 MG TAB PO SCH (19:47)
[2017-11-09] MEDS: DOCUSATE SODIUM 50 MG/SENNA 8.6 MG TAB PO SCH (19:48)
[2017-11-09] MEDS: FAMOTIDINE 20 MG/2 ML VIAL IV PUSH SCH (19:48)
[2017-11-09] MEDS: SODIUM CHLORIDE 0.9% FLUSH 10 ML FLUSH IV FLUSH SCH (19:48)
--- NOTE | 2017-11-09 19:49 | MB ---
cc: Papito Mohan MD, Arthur W MD DATE: 11/09/2017 HISTORY OF PRESENT ILLNESS: Sandro is a very pleasant 46-year-old gentleman with history of mitral valve replacement, ICD, endocarditis, hypertrophic cardiomyopathy who presented to the emergency room with chief complaint of palpitations. Heart rate was in the 170s. The patient was hemodynamically unstable. He was defibrillated x1 with mandaen of sinus rhythm. He is followed by Dr. Talley at [facility]. Dr. Cr communicated with Dr. Talley. Dr. Talley recommended increasing the patient's atenolol from 50 to 100. The patient is currently eating dinner, in no acute distress. Denies fevers, chills, cough, GI or bleeding, PND, orthopnea, syncope, or dizziness. He denies noncompliance. He says this has never happened to him before. PAST MEDICAL HISTORY: Includes GI bleed requiring hospital admission 08/2017. He has a history of arthritis, atrial fibrillation, anxiety, depression, open heart surgery x2, congenital heart defects, CHF, history of myocardial infarction, mitral valve replacement in 2000, septal myectomy 08/2016. PEG tube placed. SOCIAL HISTORY: Denies tobacco or alcohol use. ALLERGIES: HALOPERIDOL, LORAZEPAM, PROMETHAZINE, ZOLPIDEM, ARIPIPRAZOLE MEDICATIONS: 1. Atenolol 50 b.i.d. 2. Metoprolol extended release 24 hours 50 daily. 3. Lasix 40 mg p.r.n. 4. Potassium 20 mEq daily. 5. Coumadin. 6. Percocet. 7. Lovenox 60 b.i.d. subcu. 8. Cymbalta MEDICATIONS IN THE HOSPITAL: 1. Abilify 10 mg daily. 2. Cymbalta 60 mg daily. 3. Famotidine 20 mg q.12 hours. 4. Potassium and magnesium supplementation. PHYSICAL EXAMINATION: VITAL SIGNS: Blood pressure 108/64, pulse 69, respiratory rate 18, temperature 97.9, sats 95% on room air. GENERAL: He is alert and oriented x3, in no acute distress. NECK: Supple. No JVD. No bruit. CARDIOVASCULAR: S1, S2. No murmurs, rubs or gallops. LUNGS: Clear to auscultation bilaterally. ABDOMEN: Soft, nontender, nondistended with positive bowel sounds. EXTREMITIES: No lower extremity edema. LABORATORY DATA: White count 9.1, hemoglobin 10.3, hematocrit 30.8, platelet count 187. Sodium 141, potassium 3.6, chloride 105, bicarbonate 24.1, BUN 29, creatinine 1.24, glucose 133, AST 201, ALT 179, troponin 0.41 x2. INR 2.5. IMAGING STUDIES: Chest x-ray: Moderate compensated cardiomegaly pacemaker. CARDIOLOGY STUDIES: EKG shows a wide complex tachycardia at 160 beats per minute. Second EKG shows normal sinus rhythm with a left bundle branch block. Third EKG: Normal sinus rhythm with a left bundle branch block. DIAGNOSES: 1. Supraventricular tachycardia. 2. Ventricular tachycardia. 3. Hypertrophic cardiomyopathy. 4. Status post mitral valve replacement. 5. Implantable cardioverter defibrillator. 6. Anemia. 7. History of gastrointestinal bleeding. 8. Elevated troponin. 9. Elevated liver function tests. 10. Hyperglycemia. DISCUSSION: I have discussed the case with Dr. Cr who has discussed the case with the patient's primary terrazzo polisher helper. Recommendation was to increase his atenolol to 100 mg a day. His INR is therapeutic at 2.5. He is asymptomatic status post cardioversion. I suspect his troponin elevation is due to cardioversion. He denies chest pain. His dyspnea and palpitations resolved after cardioversion. Recommend intensive care unit admission telemetry monitoring. Replete electrolytes p.r.n., maintain adequate volume status. MD BENITO Reaves/ , 07:03 PM , 07:49 PM
[2017-11-09] MEDS: ACETAMINOPHEN/HYDROcodone 325 MG/7.5 MG TAB PO PRN (23:54)
[2017-11-10] VITALS (7 sets, daily range): BP systolic 92–122; BP diastolic 62–82; PULSE 65–72; RESP 14–17; TEMP 97.5–97.8; O2SAT 95–99
[2017-11-10 00:49] LABS: TROPONIN I 0.48 NG/ML (0.02-0.05)
[2017-11-10] MEDS ORDERED: CHLORHEXIDINE GLUCONATE 2 % 1 PACK (2 CLOTHS) TOP SCH (04:00)
[2017-11-10 04:13] LABS: AUTOMATED NEUTROPHIL # 3.6 TH/MM3 (1.8-7.7); BASOPHIL # 0.1 TH/MM3 (0-0.2); BASOPHIL % 1.3 % (0.0-2.0); EOSINOPHIL # 0.4 TH/MM3 (0-0.4); EOSINOPHIL % 6.8 % (0.0-4.0); HEMATOCRIT 25.5 % (39.0-51.0); HEMOGLOBIN 8.5 GM/DL (13.0-17.0); LYMPH % 23.9 % (9.0-44.0); LYMPHOCYTE # 1.4 TH/MM3 (1.0-4.8); MEAN CELL VOLUME 89.3 FL (80.0-100.0); MEAN CORPUSCULAR HEMOGLOBIN 29.8 PG (27.0-34.0); MEAN CORPUSCULAR HGB CONC 33.4 % (32.0-36.0); MEAN PLATELET VOLUME 7.9 FL (7.0-11.0); MONO % 4.9 % (0.0-8.0); MONOCYTE # 0.3 TH/MM3 (0-0.9); NEUT % 63.1 % (16.0-70.0); PLATELET COUNT 151 TH/MM3 (150-450); RED BLOOD COUNT 2.86 MIL/MM3 (4.50-5.90); RED CELL DISTRIBUTION WIDTH 16.6 % (11.6-17.2); WHITE BLOOD COUNT 5.7 TH/MM3 (4.0-11.0)
[2017-11-10 04:43] LABS: ALBUMIN 2.8 GM/DL (3.4-5.0); ALKALINE PHOSPHATASE 80 U/L (45-117); ALT (GPT) 136 U/L (12-78); AST (GOT) 112 U/L (15-37); BICARBONATE 24.5 MEQ/L (21.0-32.0); BLOOD UREA NITROGEN 21 MG/DL (7-18); CALCIUM 7.7 MG/DL (8.5-10.1); CHLORIDE 110 MEQ/L (98-107); CREATININE 0.76 MG/DL (0.60-1.30); GLOMERULAR FILTRATION RATE 114 ML/MIN (>89); GLUCOSE,RANDOM 83 MG/DL (74-106); MAGNESIUM 1.8 MG/DL (1.5-2.5); PHOSPHORUS 3.1 MG/DL (2.5-4.9); SODIUM (NA) 142 MEQ/L (136-145); TOTAL BILIRUBIN ADULT 0.5 MG/DL (0.2-1.0); TOTAL PROTEIN 5.3 GM/DL (6.4-8.2)
[2017-11-10] MEDS: INSULIN ASPART SUPPLEMENTAL SCALE SQ SCH (07:35)
[2017-11-10] MEDS: SODIUM CHLORIDE 0.9% FLUSH 10 ML FLUSH IV FLUSH SCH (07:38)
[2017-11-10] MEDS: FAMOTIDINE 20 MG/2 ML VIAL IV PUSH SCH (07:39)
[2017-11-10] MEDS: clonazePAM 0.5 MG TAB PO SCH (07:39)
[2017-11-10] MEDS: DOCUSATE SODIUM 50 MG/SENNA 8.6 MG TAB PO SCH (07:39)
[2017-11-10] MEDS: ACETAMINOPHEN/HYDROcodone 325 MG/7.5 MG TAB PO PRN (07:54)
[2017-11-10] MEDS ORDERED: DULoxetine HCl DR 60 MG CAP PO SCH (09:00)
[2017-11-10] MEDS ORDERED: ARIPiprazole 10 MG TAB PO SCH (09:00)
[2017-11-10] MEDS ORDERED: ATENOLOL 100 MG TAB PO SCH (09:30)
--- NOTE | 2017-11-10 09:46 | HHI.CCPN ---
Subjective Remarks/Hospital Course This is a 42-year-old male with history of mitral valve replacement, [employer] AICD, endocarditis, hypertrophic cardiomyopathy, presents the emergency room with complaints of palpitations. Upon admission to the ED the patient was noted to have a heart rate in the 170's, and hemodynamically unstable. Patient underwent synchronized defibrillation 1. Patient converted to sinus rhythm with systolic blood pressure in the 90's. The patient's personal foreign exchange position clerk is , [facility] . The patient is noted to have a single lead AICD [employer] device, that was interrogated in the ED. Discussion with Dr. Newell, patient's personal physician is a single lead device unable to really ascertain SVT versus V. tach on EKG. critical care medicine was consulted. I contacted Dr. Newell, discussed case, previous discussion provided by Dr. Marily Xavier with EKG results shown to him. Per Dr. Newell no antiarrhythmics recommended, possibly have a negative effect. Plan to increase patient's beta blockers to atenolol 100 mg/day. Patient received 50 mg this a.m. 50 mg given in the ED. the patient begins to deteriorate per Dr. Newell, the patient is to be transported/transferred to [facility] for further managment. I contacted Dr. Mohan foreign exchange position clerk suction plate roller hand, provided the above information. patient to be transferred to [facility]. The patient's medical history is also significant for the fact that the patient was admitted 08/2017 with GI bleeding and remained hospitalized here at [facility] for approximately 4 weeks. The patient currently is alert and oriented hemodynamically stable systolic blood pressure in the low 90's. Subjective: 11/10: Afebrile. no acute events overnight. Patient tolerating a diet. No further episodes of SVT/or V. tach. Patient's medication changed to atenolol 100 mg per heart rate ranged from 70-80s throughout the night. MAP ranging 75- 80. Discussed with Dr. Mohan this a.m., plan for discharge today and follow up with Dr. Newell scheduled appointment in [place] in a.m.. Awaiting appointment scheduled from Dr. Newell's office. Patient up OOB ambulating in room w/o difficulty, hemodynamically stable, Hr 70-80's with ambulation. Objective Vital Signs Date Time Temp Pulse Resp B/P (MAP) Pulse Ox O2 Delivery O2 Flow Rate FiO2 11/10/17 09:24 17 11/10/17 08:00 67 11/10/17 08:00 97.8 122/82 (95) 99 11/09/17 22:00 21 11/09/17 14:29 Room Air 11/09/17 12:53 2.00 Intake and Output 11/10/17 11/10/17 11/11/17 08:00 16:00 00:00 Output Total 950 ml Balance -950 ml Result Diagram: 11/10/17 0355 11/10/17 0355 Imaging Last Impressions Chest X-Ray 11/09/17 1142 Signed Impressions: CONCLUSION: Moderate compensated cardiomegaly Pacemaker Objective Remarks GENERAL: This is a well-developed well-nourished male alert and oriented SKIN: Warm and dry. HEAD: Atraumatic. Normocephalic. EYES: Pupils equal and round. No scleral icterus. No injection or drainage. ENT: No nasal bleeding or discharge. Mucous membranes pink and moist. NECK: Trachea midline. No JVD. CARDIOVASCULAR: Regular rate, regular rhythm. RESPIRATORY: No accessory muscle use. Clear to auscultation. Breath sounds equal bilaterally. GASTROINTESTINAL: Abdomen soft, non-tender, nondistended. No guarding. G-tube in situ with sutures no erythema or drainage. Well-healed midline abdominal scar MUSCULOSKELETAL: Extremities without clubbing, cyanosis, or edema. No obvious deformities. NEUROLOGICAL: Awake and alert. RASS 0. No gross focal/sensory deficits. Follows commands in all 4 extremities. A/P Problem List: (1) Ventricular tachycardia ICD Code: I47.2 - Ventricular tachycardia Status: Acute (2) Hypertrophic cardiomyopathy ICD Code: I42.2 - Hypertrophic cardiomyopathy Status: Acute Permanent Comment: Dr. Newell Cardiology group. Stress-echo Last Edited By: Ozzy Edwards on May 26, 2014 13:05 (3) S/P MVR (mitral valve replacement) ICD Code: Z95.4 - S/P MVR (mitral valve replacement) Status: Chronic Permanent Comment: Need prophyllaxis - Due to endocarditis Last Edited By: Ozzy Edwards on May 26, 2014 13:06 (4) AICD (automatic cardioverter/defibrillator) present ICD Code: Z95.810 - AICD (automatic cardioverter/defibrillator) present Status: Chronic (5) H/O mitral valve replacement with mechanical valve ICD Code: Z95.2 - Presence of prosthetic heart valve Status: Chronic (6) Status post exploratory laparotomy ICD Code: Z98.890 - Other specified postprocedural states Status: Acute (7) Chronic anticoagulation ICD Code: Z79.01 - buttermaker (current) use of anticoagulants Status: Chronic Assessment and Plan Plan by systems: Neurologic: Anxiety Depression Continue patient's home meds Klonopin 0.5 mg 3 times daily, Cymbalta 60 mg/day, Abilify 10 mg/day Tylenol 650 mg for temperature greater than 101.0 [place] 7.5/325 as needed for breakthrough pain 8-10 Patient normally takes Seroquel at at bedtime currently on hold Respiratory: Maintain O2 sat greater than 92% Provide O2 1-4 L/min Incentive spirometry Duo nebs every 4 hours as needed Cardiovascular: H/O mitral valve replacement-mechanical [employer] AICD SVT vs. Vtach-resolved History of hypertension Increase atenolol to 100 mg/ Patient takes furosemide 40 mg daily as needed will hold for now 11/09-synchronized defibrillation 1 in the ED, 100 J His personal physician is Dr. Newell [facility], 11/[address] Newell plan for increase atenolol to 100 mg/day 11/09 continue atenolol 100 mg/day 11/09 AICD to be interrogated, adjustments made by Dr. Newell-see report Renal: No Donaldson indicated at this time -- Strict I/Os FEN/GI: GERD G-tube Status post ex lap 08/2017 Continue Protonix 40 mg twice daily Bowel regimen Zofran for nausea Heart healthy diet Patient has home dosing of Lasix 40 mg/day as needed Magnesium level 1.7-give mag 1 g IVP Heme/ID: Chronic anticoagulation Monitor CBC Continue warfarin 5 mg/day-monitor INR, INR 2.5 Endocrine: Glucose monitoring per ICU protocol -- SSI Prophylaxis: GI Prophylaxis Protonix twice daily DVT Prophylaxis -- SCDs Patient on Coumadin Lines: Peripheral IVs x2 Dispo: Level 2 follow up I discussed case with Dr. Mohan, reviewed medications and patient's hemodynamic profile, tentative plan for discharge to home with scheduled appointment with Dr. Newell. I informed patient and patient's significant other , Jo. Plan for discharge upon securing appointment with foreign exchange position clerk Dr. Newell. 1102- The patient has a confirmed appt in [place] with is Renewals Manager on 2017 @ 1500. The patient will continue on his prescribed home medications. Atenolol has been increased to 100mg/ day. Instructions have been provided to the patient and his caregiver/ significant other Jo. Physician Luana Sandy MD November 10, 2017 09:46
[2017-11-10] MEDS ORDERED: ATEN100T PO (11:01)
--- NOTE | 2017-11-11 08:33 | EKG ---
Date Performed: 11/09/2017 Time Performed: 11:38:56 PTAGE: 42 years EKG: SINUS TACHYCARDIA WITH SHORT MN INTERVAL MARKED LEFT AXIS DEVIATION INTRAVENTRICULAR CONDUC TION DELAY PROLONGED QT INTERVAL Left bundle branch block ACUTE NH PREVIOUS TRACING : 09/15/2017 20.04 DOCTOR: Papito Mohan Interpretating Date/Time 11/11/2017 08:32:44
--- NOTE | 2017-11-11 08:33 | EKG ---
Date Performed: 11/09/2017 Time Performed: 12:13:16 PTAGE: 42 years EKG: Sinus rhythm LEFT ATRIAL ENLARGEMENT LEFT BUNDLE BRANCH BLOCK PROLONGED QT INTERVAL ABNORMAL ECG PREVIOUS TRACING : 11/09/2017 11.38 DOCTOR: Papito Mohan Interpretating Date/Time 11/11/2017 08:33:01
--- NOTE | 2017-11-11 08:33 | EKG ---
Date Performed: 11/09/2017 Time Performed: 15:52:42 PTAGE: 42 years EKG: Sinus rhythm WITH OCCASIONAL SUPRAVENTRICULAR PREMATURE COMPLEXES LEFT ATRIAL ENLARGEMENT LEFT BUNDLE BRANCH BLOC K PROLONGED QT INTERVAL ABNORMAL ECG PREVIOUS TRACING : 11/09/2017 12.13 DOCTOR: Papito Mohan Interpretating Date/Time 11/11/2017 08:33:23
== END 2017-11-10 12:00 | disposition home or self-care (01) | DRG 309 ==
LOC: NEPC 11:23 → NEDA 13:08 → HIMW 16:05
PROVIDERS: ADMIT Anesthesiology; ATTEND Anesthesiology
PROC: 5A2204Z Restoration of Cardiac Rhythm, Single (ICD-10-PCS; principal; 2017-11-09)
DX: I47.2 Ventricular tachycardia (principal); I42.2 Other hypertrophic cardiomyopathy; I11.0 Hypertensive heart disease with heart failure; I50.9 Heart failure, unspecified; I95.9 Hypotension, unspecified; F32.9 Major depressive disorder, single episode, unspecified; D64.9 Anemia, unspecified; F41.9 Anxiety disorder, unspecified; K21.9 Gastro-esophageal reflux disease without esophagitis; I48.91 Unspecified atrial fibrillation; M19.049 Primary osteoarthritis, unspecified hand; R11.0 Nausea; R73.9 Hyperglycemia, unspecified; I47.1 Supraventricular tachycardia; Z93.1 Gastrostomy status; Z95.2 Presence of prosthetic heart valve; I25.2 Old myocardial infarction; Z95.810 Presence of automatic (implantable) cardiac defibrillator; Z79.01 Long term (current) use of anticoagulants
CPT/HCPCS: 71045; 80053; 82550; 82552; 82948; 83605; 83735; 84100; 84484; 85025; 85610; 85730; 87641; 92960; 93005; 96360; 99152; 99153; J3475; J7030